=== PATIENT | female | born 1945 | race Caucasian/White ===

== ENCOUNTER 2019-02-16 12:11 | Emergency (ER) | payer MEDICARE, SELFPAY ==
[2019-01-27 11:44] VITALS: BMI 28.8
[2019-02-16 12:12] VITALS: BP 202/106; PULSE 106; RESP 16; TEMP 36.9; BMI 29.2
--- NOTE | 2019-02-16 12:27 | VDLE_ITS ---
Reason For Study: swelling RIGHT LEFT GSV is normal. GSV is normal. CFV is compressible, spontaneous, phasic, CFV is compressible, spontaneous, phasic, competent and demonstrates normal competent, and demonstrates normal augmentation. augmentation. FV is compressible, spontaneous, phasic, FV is compressible, spontaneous, phasic, competent and demonstrates normal competent and demonstrates normal augmentation. augmentation. POP V is compressible, spontaneous, phasic, POP V is compressible, spontaneous, phasic, competent and demonstrates normal competent and demonstrates normal augmentation. augmentation. T/P Trunk is compressible. T/P Trunk is compressible. PTV is compressible. PTV is compressible. RT PerV is compressible. LT PerV is compressible. Procedure Exam performed portable in ED. The exam was diagnostic. A preliminary report was called and/or faxed to Dr. Brar. Interpretation Summary Deep veins of the lower extremities are bilaterally patent and compressible segmentally. There is no evidence of deep vein thrombosis on either side. Valvular competence appears intact within the proximal deep venous systems bilaterally. The greater saphenous veins appear bilaterally patent and compressible segmentally. Ordering Physician: Steven Brar Performed By: Aba Hilton RVT
--- NOTE | 2019-02-16 12:29 | ED.VIS.GEN ---
History of Present Illness Chief Complaint: Lower Extremity Injury Informant: Patient Onset: Days Current Severity: Mild Narrative: The patient presents with right lower extremity redness and edema, the edema is actually bilateral. Her history is basically complicated and is followed She has a history of requiring ocular surgery including clinic involving her right eye she had complications where she could not see she required subsequent surgery, she was then placed on high doses of prednisone related to all the above and she developed bilateral lower extremity edema She had no fever cough or chest pain she indicates the other day she bumped her right leg against something had poor vision could really see the injury but felt she had some type of an abrasion there over the last few days she is felt that the leg was slightly warm again because of poor vision she could not tell for sure she was seen today at [facility] urgent care she was found to have the edema bilaterally and redness involving her right lower extremity and she was sent to the emergency department for duplex scan to evaluate for DVT The patient has no history of DVT PE IN her vision is improving she is currently on 7 mg of prednisone she is to go down to 5 which is her baseline Past Medical History - Allergies and Home Meds Allergies/Adverse Reactions: Allergies alprazolam [From Xanax] Allergy (Unknown, Verified 02/16/19 12:15) Unknown [place] And Derivatives Allergy (Unknown, Verified 02/16/19 12:15) Unknown mushroom Allergy (Unknown, Verified 02/16/19 12:15) Unknown paroxetine [From Paxil] Allergy (Unknown, Verified 02/16/19 12:15) Unknown peanut Allergy (Unknown, Verified 02/16/19 12:15) Unknown tolmetin [From Tolectin] Allergy (Unknown, Verified 02/16/19 12:15) Unknown Yeast Allergy (Unknown, Verified 02/16/19 12:15) Unknown acetaminophen [From Darvocet-N] Allergy (Verified 02/16/19 12:15) Other aspirin Allergy (Verified 02/16/19 12:15) Other codeine Allergy (Verified 02/16/19 12:15) Other lidocaine Allergy (Verified 02/16/19 12:15) Other meperidine HCl [From Demerol] Allergy (Verified 02/16/19 12:15) Other Opioids - Morphine Analogues Allergy (Verified 02/16/19 12:15) Other oxycodone HCl [From Percodan] Allergy (Verified 02/16/19 12:15) Other oxycodone terephthalate [From Percodan] Allergy (Verified 02/16/19 12:15) Other Penicillins Allergy (Verified 02/16/19 12:15) Rash propoxyphene napsylate [From Darvocet-N] Allergy (Verified 02/16/19 12:15) Other Sulfa (Sulfonamide Antibiotics) Allergy (Verified 02/16/19 12:15) Rash Beef Containing Products Adverse Reaction (Severe, Verified 02/16/19 12:15) Unknown cheese Adverse Reaction (Mild, Verified 02/16/19 12:15) Unknown egg Adverse Reaction (Unknown, Verified 02/16/19 12:15) Unknown maltose Adverse Reaction (Unknown, Verified 02/16/19 12:15) Unknown Primary Care Physician: Jennie Turk MD [Primary Care Provider] - Past Medical History: - Smoking Status: Never smoker Review of Systems ROS: - See above General: Reports: - - Her general issues are the eye surgery decreased vision as above right lower extremity redness and edema bilaterally otherwise negative. Denies: Chills, Fever, Sweats Eyes: Denies: Visual changes - bilaterally, Diplopia ENT: Denies: Rhinorrhea, Sore throat Cardiovascular: Denies: Chest pain, Palpitations Respiratory: Denies: Dyspnea, Cough, Dyspnea on exertion Gastrointestinal: Denies: Abdominal pain, Nausea, Vomiting, Diarrhea, Melena, Hematochezia Genitourinary: Denies: Dysuria, Hematuria, Frequency Musculoskeletal: Denies: Back pain, Extremity Pain Skin: Reports: Rash. Denies: Wounds Neurological: Denies: Headache, Weakness, Numbness Physical Exam Vital Signs/Narrative: Vital Signs Temp Pulse Resp BP 02/16/19 12:12 98.4 F 106 H 16 202/106 H General: Well nourished, Well developed, No Acute Distress Head: Normocephalic, Atraumatic Eyes: Perrl, EOMI ENT: Moist mucous membranes, No rhinorrhea Neck: Supple, Nontender Cardiovascular: Regular rate, Regular rhythm, No murmurs Respiratory: No distress, CTA bilaterally, Chest nontender Abdomen: Soft, Nontender, Nondistended, Normal bowel sounds Back: Nontender, Normal Inspection Extremities: Nontender, - - Has 4+ edema to her ankles and feet she has circular redness to the right lower extremity mid tib-fib level down to the ankles, neurovascular function to both lower extremities appears to be intact she is wearing very tightly fitting shoes as these are her only shoes, she has a very fine abrasion to the posterior right lower leg and what appears to be findings consistent with cellulitis related to all the above there is no fluctuance or subcu air crepitus she is able to walk without difficulty and has no pain Skin: Normal color, No rash Neurological: Alert, Oriented x3, Cranial nerves II-XII grossly intact, Normal Strength, Normal Sensation Psychological: Normal affect, Normal Mood Diagnostic/Tx/Re-eval - Medical Decision Making She has chronic bilateral edema for weeks related to the prednisone she now appears to have right lower extremity cellulitis given all the above we went through her allergy list she is able to take clindamycin she has no history of MRSA or other skin infections she has no history of DVT bilateral duplex scans will be obtained given all the above She feels fine she wants to go home she does not feel she requires admission there is been no constitutional or systemic findings of any kind such as fever cough etc. she agrees imaging studies lab work-up is not necessary, we will obtain the duplex scan provide the first dose of clindamycin Duplex scan shows no acute signs of DVT plan is as above and she will follow-up outpatient providers in a few days return for change in symptoms Home stable Final impression Bilateral lower extremity edema, right lower extremity cellulitis recent eye surgery ED Disposition - Plan for ED Patient: Diagnosis: Cellulitis Instructions: Cellulitis Prescriptions: Clindamycin HCl [Cleocin] 300 mg PO Q6H #40 cap Prescription Printed Referrals: Jennie Turk MD [Primary Care Provider] - Additional Instructions: Keep your legs elevated, or the postop shoes are comfortable fitting shoes follow-up with your outpatient providers for wound check in a few days
[2019-02-16] MEDS: Clindamycin HCl 150 MG Capsule 300 MG PO (15:26)
[2019-02-16 15:28] VITALS: BP 193/85; PULSE 93; RESP 16
== END 2019-02-16 15:29 | disposition home or self-care (01) ==
LOC: ED 13:06
PROVIDERS: Emergency Provider Emergency Medicine; Family Provider Internal Medicine; PCP Internal Medicine
DX: L03.115 Cellulitis of right lower limb (principal); R60.0 Localized edema; T38.0X5A Adverse effect of glucocorticoids and synthetic analogues, initial encounter; Z98.890 Other specified postprocedural states
CPT/HCPCS: 93970; 99283

== ENCOUNTER 2020-04-02 19:08 | Emergency (ER) | payer MEDICARE, SELFPAY ==
[2020-04-02 19:08] VITALS: BP 204/111; PULSE 95; RESP 16; TEMP 35.7; O2SAT 95; BMI 29.6
[2020-04-02 20:55] LABS: Absolute Lymphocyte Count 2.51 X10^3/uL (0.83-4.51); Absolute Neutrophil Count 10.6 X10^3/uL (2.0-7.7); Basophil# 0.04 X10^3/uL; Basophil% 0.3 % (0-1); Eosinophils% 0.7 % (0-5); Hemoglobin 12.9 g/dL (12.0-15.0); Lymphocyte # 2.51 X10^3/ul (4.0); Lymphocyte % 17.6 % (19-41); Mean Corp Hgb Conc 33.1 g/dL (32-36); Mean Corpuscular Hgb 32.4 pg (27.0-32.0); Mean Platelet Vol. 9.2 fl (6.2-12.0); Monocyte# 0.93 X10^3/uL; Monocyte% 6.5 % (0-10); NRBC Flagged by Analyzer 0 % (0-5); Neutrophil # 10.57 X10^3/uL (2.7-7.7); Neutrophil % 74.2 % (47-70); Platelet Count 354 K/mm3 (150-450); RBC Distribution Width CV 13.8 % (11.6-14.6); RBC Distribution Width SD 49.9 fl (35.1-43.9); Red Blood Count 3.98 M/mm3 (4.2-5.4); White Blood Count 14.3 K/mm3 (4.4-11.0)
[2020-04-02 21:35] LABS: ALB/GLOB Ratio 0.9 RATIO (0.9-2.4); AST(SGOT) 17 U/L (15-37); Alanine Aminotransfer ALT/SGPT 23 U/L (13-56); Albumin, Serum 3.3 g/dL (3.2-5.0); Alkaline Phosphatase 55 U/L (45-117); Anion Gap 8 (5-15); BUN 16 mg/dL (7-18); BUN/Creat Ratio 10.6 RATIO (10-20); Calcium,Total 8.7 mg/dL (8.5-10.1); Chloride 98 mmol/L (98-107); Creatinine, Serum 1.51 mg/dL (0.55-1.02); EST Glomerular Filtration Rate 36 mL/min (>60); Est Glom Filt Rate - Afr Amer 43 mL/min (>60); Estimated Creatinine Clearance 32.97 ml/min; Globulin 3.7 g/dL (2.2-4.2); Glucose 94 mg/dL (74-106); Potassium 3.3 mmol/L (3.5-5.1); Sodium Level 136 mmol/L (136-145)
--- NOTE | 2020-04-02 21:35 | ED.DCSUM_ITS ---
History of Present Illness Chief Complaint: Lower Extremity Injury Narrative: Patient presents with right great toe infection. She now has developed mild cellulitis. To around the ankle region. She has no fever chills cough or congestion she is not a diabetic. She noticed a cyst on the great toe. No groin pain and no lymphangitic streaking noted Past Medical History - Allergies and Home Meds Allergies/Adverse Reactions: Allergies alprazolam [From Xanax] Allergy (Unknown, Verified 02/16/19 12:15) Unknown [place] And Derivatives Allergy (Unknown, Verified 02/16/19 12:15) Unknown mushroom Allergy (Unknown, Verified 02/16/19 12:15) Unknown paroxetine [From Paxil] Allergy (Unknown, Verified 02/16/19 12:15) Unknown peanut Allergy (Unknown, Verified 02/16/19 12:15) Unknown tolmetin [From Tolectin] Allergy (Unknown, Verified 02/16/19 12:15) Unknown Yeast Allergy (Unknown, Verified 02/16/19 12:15) Unknown acetaminophen [From Darvocet-N] Allergy (Verified 02/16/19 12:15) Other aspirin Allergy (Verified 02/16/19 12:15) Other codeine Allergy (Verified 02/16/19 12:15) Other lidocaine Allergy (Verified 02/16/19 12:15) Other meperidine HCl [From Demerol] Allergy (Verified 02/16/19 12:15) Other Opioids - Morphine Analogues Allergy (Verified 02/16/19 12:15) Other oxycodone HCl [From Percodan] Allergy (Verified 02/16/19 12:15) Other oxycodone terephthalate [From Percodan] Allergy (Verified 02/16/19 12:15) Other Penicillins Allergy (Verified 02/16/19 12:15) Rash propoxyphene napsylate [From Darvocet-N] Allergy (Verified 02/16/19 12:15) Other Sulfa (Sulfonamide Antibiotics) Allergy (Verified 02/16/19 12:15) Rash Beef Containing Products Adverse Reaction (Severe, Verified 02/16/19 12:15) Unknown cheese Adverse Reaction (Mild, Verified 02/16/19 12:15) Unknown egg Adverse Reaction (Unknown, Verified 02/16/19 12:15) Unknown maltose Adverse Reaction (Unknown, Verified 02/16/19 12:15) Unknown Primary Care Physician: Jennie Turk MD [Primary Care Provider] - Past Medical History: - - She has a history of hypertension, she is not a diabetic. Otherwise unremarkable past medical history Smoking Status: Never smoker Review of Systems All systems negative except as indicated General: Denies: Fever Cardiovascular: Denies: Chest pain Respiratory: Denies: Dyspnea, Cough Gastrointestinal: Denies: Abdominal pain, Nausea Musculoskeletal: Reports: Extremity Pain Skin: Reports: Wounds Neurological: Denies: Headache Psych: Denies: Depression Hematologic: Denies: Easy bruising Physical Exam Vital Signs/Narrative: Vital Signs Temp Pulse Resp BP Pulse Ox 04/02/20 19:08 96.2 F L 95 16 204/111 H 95 General: Well nourished, Well developed ENT: Moist mucous membranes Cardiovascular: Regular rate, Regular rhythm Respiratory: No distress, CTA bilaterally Abdomen: Soft, Nontender Back: Nontender, Normal Inspection Extremities: - - There is a 1 cm cyst over the bunion region of the great toe. There is slight surrounding cellulitis extending to the ankle. No lymphangitic streaking. Skin: - - Cellulitis as above, no crepitus or signs of necrotizing fasciitis. Diagnostic/Tx/Re-eval - Medical Decision Making Patient has slight leukocytosis, she has mild cellulitis. She had a small cyst, I used a 21-gauge needle and expectorated the sebaceous cyst, it is now fully drained. I gave her IV clindamycin apparently she just had 3 doses of 300 mg clindamycin since yesterday, I do not believe this is outpatient failure, patient is adamant about going home, she had cellulitis in the past and was much worse than this and was treated outpatient. She seems quite reliable if she worsens she is to return. She understands this. ED Disposition - Plan for ED Patient: Disposition: Home or Assisted Living Diagnosis: Cellulitis Instructions: Cellulitis Prescriptions: Clindamycin [Cleocin] 300 mg PO 4X/DAY #60 cap Prescription Printed Referrals: Jennie Turk MD [Primary Care Provider] - 3-5 Days
[2020-04-02 21:50] VITALS: PULSE 82; RESP 16; TEMP 37.2; O2SAT 99
== END 2020-04-02 22:12 | disposition home or self-care (01) ==
PROVIDERS: Emergency Provider Emergency Medicine; PCP Internal Medicine
DX: L03.115 Cellulitis of right lower limb (principal); L72.3 Sebaceous cyst; I10 Essential (primary) hypertension; Z79.52 Long term (current) use of systemic steroids; Z79.899 Other long term (current) drug therapy
CPT/HCPCS: 80053; 85025; 96365; 96366; 99283; J7030

== ENCOUNTER 2020-07-07 21:09 | Emergency (ER) | payer MEDICARE, SELFPAY ==
[2020-07-07 21:10] VITALS: PULSE 96; RESP 18; TEMP 36.7; BMI 29.9
--- NOTE | 2020-07-07 21:29 | ED.VISSUMM ---
- ER Visit Summary Date of Service: 07/07/20 Chief Complaint: UTI History of Present Illness: The patient is a 74 F with a possible UTI. She has suprapubic pain and burning with urination that started this evening. She is a home test report showed that it was positive for UTI. She has a history of UTIs. She is on Macrodantin suppression. She is concerned for a resistant infection. She has multiple medication allergies and can only take Cipro. Denies fever or back pain. Denies any GI symptoms. No other complaints. Physical Examination: Afebrile and vital signs unremarkable. Alert and oriented. No acute distress. Abdomen slightly tender in the suprapubic region. No guarding or rebound. Back is nontender. Skin appears normal. Test Results: Urine culture sent. Emergency Department Course and Treatment: Patient has symptoms of UTI. History of UTIs. Her test strip is positive for UTI. Will not perform urinalysis. We will send a culture directly. She has had good results with Cipro in the past. She was treated here. She can only take Cipro with a lot of food. She can take the first dose with food tonight, and she was given a prescription for the rest. Follow-up with primary care. Return for any new or worsening issues. Treatment Plan: As above Disposition: Discharge Impression: Dysuria This note was generated with CAP[employer]URE dictation software. It may contain incorrect words, spelling, and punctuation that were not noted in review of the chart prior to signing ED Disposition - Plan for ED Patient: Referrals: Jennie Turk MD [Primary Care Provider] -
[2020-07-07] MEDS: Ciprofloxacin 500 MG Tablet PO (21:30)
--- NOTE | 2020-07-07 21:31 | ED.DEP ---
ED Disposition - Plan for ED Patient: Instructions: Dysuria Prescriptions: Ciprofloxacin [Cipro] 500 mg PO BID #14 tab Prescription Printed Referrals: Jennie Turk MD [Primary Care Provider] -
[2020-07-07 22:05] VITALS: BP 210/98
== END 2020-07-07 22:09 | disposition home or self-care (01) ==
LOC: ED 22:03
PROVIDERS: Emergency Provider Emergency Medicine; PCP Internal Medicine
DX: R30.0 Dysuria (principal); R35.0 Frequency of micturition; R10.9 Unspecified abdominal pain; Z79.899 Other long term (current) drug therapy; Z87.440 Personal history of urinary (tract) infections
CPT/HCPCS: 87077; 87086; 87088; 87186; 99282

== ENCOUNTER 2020-09-01 11:20 | Emergency (ER) | payer MEDICARE, SELFPAY ==
[2020-09-01 11:21] VITALS: PULSE 89; RESP 16; TEMP 36.4; O2SAT 96; BMI 29.7
--- NOTE | 2020-09-01 11:48 | ED.DCSUM_ITS ---
History of Present Illness Chief Complaint: Cellulitis Informant: Patient Onset: Yesterday Context: Gradual Onset Current Severity: Mild Maximum Severity: Mild Narrative: Patient presents with pain and redness to her right great toe. She reports having cellulitis there in fall 2019 that required 7 weeks of oral antibiotics to clear up. Night before last she woke in the middle the night with throbbing pain in her right great toe. She initially denied any erythema but did have pain with walking. Yesterday she noted increased redness and swelling however pain seems to improve somewhat. There is no evidence of open wound. She has had no fevers or chills. She has been on chronic steroids for arthritis in her back and states this was recently tapered. She denies history of gout. - Past Medical History (1) Hypertension Status: Chronic (2) Arthritis Status: Chronic Past Medical History - Allergies and Home Meds Allergies/Adverse Reactions: Allergies alprazolam [From Xanax] Allergy (Unknown, Verified 09/01/20 11:25) Unknown [place] And Derivatives Allergy (Unknown, Verified 09/01/20 11:25) Unknown mushroom Allergy (Unknown, Verified 09/01/20 11:25) Unknown paroxetine [From Paxil] Allergy (Unknown, Verified 09/01/20 11:25) Unknown peanut Allergy (Unknown, Verified 09/01/20 11:25) Unknown tolmetin [From Tolectin] Allergy (Unknown, Verified 09/01/20 11:25) Unknown Yeast Allergy (Unknown, Verified 09/01/20 11:25) Unknown acetaminophen [From Darvocet-N] Allergy (Verified 09/01/20 11:25) Other aspirin Allergy (Verified 09/01/20 11:25) Other codeine Allergy (Verified 09/01/20 11:25) Other fluconazole [From Diflucan] Allergy (Verified 09/01/20 11:25) Rash lidocaine Allergy (Verified 09/01/20 11:25) Other if no epinepherine and no preservatives it is okay meperidine HCl [From Demerol] Allergy (Verified 09/01/20 11:25) Other metronidazole [From Metrogel] Allergy (Verified 09/01/20 11:25) Rash Opioids - Morphine Analogues Allergy (Verified 09/01/20 11:25) Other oxycodone HCl [From Percodan] Allergy (Verified 09/01/20:) Other oxycodone terephthalate [From Percodan] Allergy (Verified 09/01/20:) Other Penicillins Allergy (Verified 09/01/20) Rash propoxyphene napsylate [From Darvocet-N] Allergy (Verified 09/01/20:) Other Sulfa (Sulfonamide Antibiotics) Allergy (Verified 09/01/20:) Rash Beef Containing Products Adverse Reaction (Severe, Verified 09/01/20:) Unknown cheese Adverse Reaction (Mild, Verified 09/01/20:) Unknown egg Adverse Reaction (Unknown, Verified 09/01/20:) Unknown maltose Adverse Reaction (Unknown, Verified 09/01/20) Unknown adhesive tape Adverse Reaction (Verified 09/01/20) Rash Cephalosporins Adverse Reaction (Verified 09/01/20:) Shortness of breath cyclobenzaprine [From Flexeril] Adverse Reaction (Verified 09/01/20) NEEDS FOLLOW-UP epinephrine Adverse Reaction (Verified 09/01/20:) NEEDS FOLLOW-UP estrogens, conjugated [From Premarin] Adverse Reaction (Verified 09/01/20:) NEEDS FOLLOW-UP lisinopril Adverse Reaction (Verified 09/01/20:) Shortness of breath midazolam [From Versed] Adverse Reaction (Verified 09/01/20:) NEEDS FOLLOW-UP ofloxacin [From Floxin] Adverse Reaction (Verified 09/01/20:) NEEDS FOLLOW-UP salicylates Adverse Reaction (Verified 09/01/20:) Shortness of breath spider venom Adverse Reaction (Verified 09/01/20:25) Nausea Primary Care Physician: Jennie Turk MD [Primary Care Provider] - 5-7 Days Guido Seymour MD [STAFF PHYSICIAN] - As Needed Prior records reviewed: Yes Smoking Status: Never smoker Review of Systems General: Denies: Chills, Fever Eyes: Denies: Visual changes - bilaterally ENT: Denies: Bilateral ear pain Cardiovascular: Denies: Chest pain Respiratory: Denies: Dyspnea, Cough Gastrointestinal: Denies: Abdominal pain Musculoskeletal: Reports: Swelling, Extremity Pain Skin: Reports: Rash Neurological: Denies: Headache Hematologic: Denies: Easy bruising, Easy bleeding Allergy: Denies: Uticaria Physical Exam Vital Signs/Narrative: Vital Signs Temp Pulse Resp Pulse Ox 09/01/20 11:21 97.6 F L 89 16 96 Inital Vital Signs reviewed: Yes General: Well nourished, Well developed Head: Normocephalic ENT: Moist mucous membranes Neck: Supple Cardiovascular: Regular rate, Regular rhythm Respiratory: No distress, CTA bilaterally Abdomen: Soft, Nontender Extremities: - - Mild edema to the right great toe with erythema on the medial surface. No open wounds noted. No lymphangitic streak. Neurological: Alert, Oriented x3 Psychological: Normal affect Diagnostic/Tx/Re-eval Impressions Foot X-Ray 09/01/20 12:30 IMPRESSION: Normal x-ray examination of the foot. Electronically Signed: Grant Cervantes MD at 13:11 EST Tel , Service support , 09/01/20 12:30 Foot min 3 Views [RAD] Stat Laboratory Results 09/01/20 09/01/20 12:00 12:00 WBC 18.4 H RBC 4.12 L Hgb 13.1 Hct 39.9 MCV 96.8 MCH 31.8 MCHC 32.8 RDW Std Deviation 47.2 H RDW Coeff of [place] 13.2 Plt Count 392 MPV 9.6 Immature Gran % (Auto) 0.600 Neut % (Auto) 78.1 H Lymph % (Auto) 14.7 L [place] % (Auto) 5.5 Eos % (Auto) 0.7 Baso % (Auto) 0.4 Absolute Neuts (auto) 14.4 H Absolute Lymphs (auto) 2.71 Nucleated RBC % 0 ESR 7 Sodium 138 Potassium 2.7 L* Chloride 102 Carbon Dioxide 27.0 Anion Gap 9 BUN 16 Creatinine 1.07 H Estim Creat Clear Calc 45.83 Est GFR (MDRD) Af Amer 64 Est GFR (MDRD) Non-Af 53 L BUN/Creatinine Ratio 15.0 Glucose 121 H Uric Acid 8.6 H Calcium 8.7 C-React Prot Ext Range 30.50 H - Medical Decision Making Blood work is reviewed. White blood cell count is elevated to 18 as opposed to 14 last fall when she was seen for similar. She does report she was just on a 10 mg prednisone burst where her baseline is currently 4 mg. This may contribute. Uric acid is mildly elevated. At this time erythema is mild. Right foot x-ray per my interpretation reveals no bony abnormalities. Radiologist interpretation is reviewed. Patient be given a dose of IV clindamycin at this time and clindamycin at home. She was given p.o. potassium for her hypokalemia and will be given a short course of potassium at home as well. ED Disposition - Plan for ED Patient: Disposition: Home or Assisted Living Diagnosis: Hypokalemia, Cellulitis Instructions: ED Cellulitis, ED Hypokalemia Prescriptions: Clindamycin [Cleocin] 300 mg PO 4X/DAY #80 cap Prescription Printed Potassium Chloride [K-Dur] 20 meq PO BID #7 tab Prescription Printed Prednisone 20 mg PO DAILY #9 tab Prescription Printed Referrals: Jennie Turk MD [Primary Care Provider] - 5-7 Days Guido Seymour MD [STAFF PHYSICIAN] - As Needed Additional Instructions: Prednisone: 20mg daily x 3 days, then 10mg daily x 3 days, then back to baseline 4mg dose.
[2020-09-01 12:25] LABS: Absolute Lymphocyte Count 2.71 X10^3/uL (0.83-4.51); Absolute Neutrophil Count 14.4 X10^3/uL (2.0-7.7); Basophil# 0.08 X10^3/uL; Basophil% 0.4 % (0-1); Eosinophil# 0.13 X10^3/uL; Eosinophils% 0.7 % (0-5); Erythrocyte Sedimentation Rate 7 mm/hr (0-30); Hematocrit 39.9 % (37-47); Hemoglobin 13.1 g/dL (12.0-15.0); Lymphocyte # 2.71 X10^3/ul (4.0); Lymphocyte % 14.7 % (19-41); Mean Corp Hgb Conc 32.8 g/dL (32-36); Mean Corpuscular Hgb 31.8 pg (27.0-32.0); Mean Corpuscular Volume 96.8 fL (81-99); Mean Platelet Vol. 9.6 fl (6.2-12.0); Monocyte# 1.01 X10^3/uL; Monocyte% 5.5 % (0-10); NRBC Flagged by Analyzer 0 % (0-5); Neutrophil # 14.37 X10^3/uL (2.7-7.7); Neutrophil % 78.1 % (47-70); Platelet Count 392 K/mm3 (150-450); RBC Distribution Width CV 13.2 % (11.6-14.6); RBC Distribution Width SD 47.2 fl (35.1-43.9); Red Blood Count 4.12 M/mm3 (4.2-5.4); White Blood Count 18.4 K/mm3 (4.4-11.0)
--- NOTE | 2020-09-01 12:30 | RAD_ITS ---
STUDY: X-RAY - RIGHT FOOT CLINICAL: Female, 75 years old. RIGHT GREAT TOE, SWOLLEN, RED AND PAINFUL. HX OF SIMILAR CELLULITIS. TECHNIQUE: 3 view(s) of the foot. COMPARISON: None. FINDINGS: Normal talus, calcaneus, and tarsal bones. Normal visualized subtalar, talonavicular, calcaneocuboid, tarsal and tarsometatarsal articulations. Normal metatarsi. Normal metatarsophalangeal joint of the great toe. Normal tibial and fibular sesamoid bones. Normal interphalangeal joint of the great toe. Normal phalanges of the great toe. Normal second through fifth metatarsophalangeal joints. Normal interphalangeal joints and phalanges of the lesser toes. The soft tissue structures are unremarkable. RAD/Foot min 3 Views IMPRESSION: Normal x-ray examination of the foot. Electronically Signed: Grant Cervantes MD at 13:11 EST Tel , Service support ,
[2020-09-01 12:58] LABS: Anion Gap 9 (5-15); BUN 16 mg/dL (7-18); Calcium,Total 8.7 mg/dL (8.5-10.1); Chloride 102 mmol/L (98-107); Creatinine, Serum 1.07 mg/dL (0.55-1.02); EST Glomerular Filtration Rate 53 mL/min (>60); Est Glom Filt Rate - Afr Amer 64 mL/min (>60); Estimated Creatinine Clearance 45.83 ml/min; Glucose 121 mg/dL (74-106); Potassium 2.7 mmol/L (3.5-5.1); Sodium Level 138 mmol/L (136-145); Uric Acid 8.6 mg/dL (2.6-6.0)
[2020-09-01 14:29] VITALS: BP 204/91; PULSE 82; RESP 18; O2SAT 96
== END 2020-09-01 15:33 | disposition home or self-care (01) ==
PROVIDERS: Emergency Provider Emergency Medicine; PCP Internal Medicine
DX: L03.032 Cellulitis of left toe (principal); E87.6 Hypokalemia; I10 Essential (primary) hypertension; M19.90 Unspecified osteoarthritis, unspecified site; Z79.52 Long term (current) use of systemic steroids; Z79.899 Other long term (current) drug therapy
CPT/HCPCS: 36415; 73630; 80048; 84550; 85025; 85652; 86140; 87040; 96365; 99283; J7030; J7050; A4216

== ENCOUNTER 2021-01-06 15:57 | Emergency (ER) | payer MEDICARE, SELFPAY ==
[2021-01-02 13:29] VITALS: BMI 29.7
[2021-01-06 15:57] VITALS: BP 211/109; PULSE 93; PULSE 94; RESP 18; TEMP 36.7; O2SAT 96; BMI 28.6
--- NOTE | 2021-01-06 16:31 | ED.VIS.LOWEX ---
HPI History of Present Illness Chief Complaint: Lower Extremity Injury Detail of Chief Complaint: Patient with minor injury to right great toe and no concern for cellulitis Informant: patient Narrative Narrative: Patient presents to the emergency department stating that she stepped off a metal stool awkwardly 2 nights ago and had some mild discomfort to the right great toe. Patient today noticed a bluish discoloration to the medial aspect of the right great toe with some faint erythema around and she became concerned about cellulitis. Patient states that she had developed for months with cellulitis of the right great toe months ago and had been on clindamycin up until 2 weeks ago. Patient not having any pain in the toe currently. She is not had any fever. [facility] Medical History (Updated 01/06/21 @ 16:[address] Misael Beckford, ) Cellulitis Fracture of metatarsal of left foot, closed Home Medications cetirizine [Zyrtec] 10 mg PO DAILY 02/12/14 [History Last Taken Unknown] conjugated estrogens [Premarin] 0.625 mg PO DAILY 02/12/14 [History Last Taken Unknown] Gastrocrom 200 mg PO 4X/DAY 01/27/19 [History Last Taken Unknown] prednisone 10 mg tablet 5 mg PO DAILY tab 01/27/19 [History Last Taken Unknown] chlordiazepoxide-clidinium 2.5 mg PO DAILY PRN 02/16/19 [History Last Taken Unknown] nitrofurantoin macrocrystal 1 tab PO DAILY 04/02/20 [History Last Taken Unknown] acetaminophen 325 mg capsule 325 mg PO ONCE PRN 01/02/21 [History Last Taken Unknown] ciprofloxacin HCl 500 mg tablet 500 mg PO BID PRN tab 01/02/21 [History Last Taken Unknown] clindamycin HCl 150 mg capsule 300 mg PO 4X/DAY PRN cap 01/02/21 [History Last Taken Unknown] lithium aspartate 5 mg capsule 5 mg PO DAILY PRN 01/02/21 [History Last Taken Unknown] olopatadine 0.2 % eye drops 1 drp OPHTHALMIC (EYE) DAILY 01/02/21 [History Last Taken Unknown] prednisolone acetate 0.12 % eye drops,suspension 1 drp OPHTHALMIC (EYE) .qod ml 01/02/21 [History Last Taken Unknown] triamterene 37.5 mg-hydrochlorothiazide 25 mg capsule 1 cap PO DAILY PRN 01/02/21 [History Last Taken Unknown] clindamycin HCl 300 mg PO 4X/DAY #80 capsule 01/06/21 [Rx Last Taken Unknown] Allergy/AdvReac Type Severity Reaction Status Date / Time alprazolam [From Xanax] Allergy Unknown Unknown Verified 01/02/21 13:32 [place] Derivatives Allergy Unknown Unknown Verified 01/02/21 13:32 mushroom Allergy Unknown Unknown Verified 01/02/21 13:32 paroxetine [From Paxil] Allergy Unknown Unknown Verified 01/02/21 13:32 peanut Allergy Unknown Unknown Verified 01/02/21 13:32 tolmetin [From Tolectin] Allergy Unknown Unknown Verified 01/02/21 13:32 Yeast Allergy Unknown Unknown Verified 01/02/21 13:32 acetaminophen Allergy Other Verified 01/02/21 13:32 [From Darvocet-N] aspirin Allergy Other Verified 01/02/21 13:32 codeine Allergy Other Verified 01/02/21 13:32 fluconazole [From Diflucan] Allergy Rash Verified 01/02/21 13:32 lidocaine Allergy Other Verified 01/02/21 13:32 meperidine HCl [From Demerol] Allergy Other Verified 01/02/21 13:32 metronidazole [From Metrogel] Allergy Rash Verified 01/02/21 13:32 Opioids - Morphine Analogues Allergy Other Verified 01/02/21 13:32 oxycodone HCl [From Percodan] Allergy Other Verified 01/02/21 13:32 oxycodone terephthalate Allergy Other Verified 01/02/21 13:32 [From Percodan] Penicillins Allergy Rash Verified 01/02/21 13:32 propoxyphene napsylate Allergy Other Verified 01/02/21 13:32 [From Darvocet-N] Sulfa (Sulfonamide Allergy Rash Verified 01/02/21 13:32 Antibiotics) Beef Containing Products AdvReac Severe Unknown Verified 01/02/21 13:32 cheese AdvReac Mild Unknown Verified 01/02/21 13:32 egg AdvReac Unknown Unknown Verified 01/02/21 13:32 maltose AdvReac Unknown Unknown Verified 01/02/21 13:32 adhesive tape AdvReac Rash Verified 01/02/21 13:32 Cephalosporins AdvReac Shortness Verified 01/02/21 13:32 of breath cyclobenzaprine AdvReac NEEDS Verified 01/02/21 13:32 [From Flexeril] FOLLOW-UP epinephrine AdvReac NEEDS Verified 01/02/21 13:32 FOLLOW-UP estrogens, conjugated AdvReac NEEDS Verified 01/02/21 13:32 [From Premarin] FOLLOW-UP lisinopril AdvReac Shortness Verified 01/02/21 13:32 of breath midazolam [From Versed] AdvReac NEEDS Verified 01/02/21 13:32 FOLLOW-UP ofloxacin [From Floxin] AdvReac NEEDS Verified 01/02/21 13:32 FOLLOW-UP salicylates AdvReac Shortness Verified 01/02/21 13:32 of breath spider venom AdvReac Nausea Verified 01/02/21 13:32 Social History (Updated 01/02/21 @ 13:40 by Nadine Hopkins) Smoking Status: Never smoker alcohol intake: never substance use type: does not use diet: low salt and other what type of physical activity do you participate in: none seatbelt use: always do you feel safe at home: Yes additional social history: ROS ROS ED Constitutional Constitutional ED: Reports systems reviewed and no addt'l complaints, except as documented; Denies body ache(s), change in weight or chills Eyes Eyes: Denies acute decrease in peripheral vision, change in vision, double vision or loss of vision ENT ENT ED: Reports none; Denies ear pain, lip swelling, loss taste/smell, neck pain, otalgia or sore throat Cardiovascular Cardiovascular: Reports none; Denies abdominal pain, chest pain with activity, leg edema, lightheadedness, palpitations, rapid heart rate or syncope Respiratory/Chest Respiratory/Chest: Reports none; Denies change in mental status, dry cough, dyspnea, hemoptysis, shortness of breath at rest or shortness of breath with exertion Gastrointestinal Gastrointestinal: Reports none; Denies abdominal pain, change in stool character, diarrhea, hematemesis, hematochezia, melena, rectal bleeding or vomiting Genitourinary Genitourinary ED: Reports none; Denies abdominal discomfort, anuria, dysuria, genital pain or polyuria Musculoskeletal Musculoskeletal: Reports none and other Details: Redness and discoloration to right great toe ; Denies arthralgias, back pain, difficulty walking, extremity pain, muscle weakness or myalgias Integumentary Reports none; Denies abscess or rash Neurologic Neurologic: Reports none; Denies abnormal gait, confusion, focal weakness, frequent falls, headache(s), loss of vision, numbness, paresthesias, radicular pain, vertigo or weakness Psychiatric Psychiatric: Reports systems reviewed and no addt'l complaints, except as documented and none; Denies behavioral changes, confusion, difficulty concentrating, hallucinations, suicidal ideation, tactile hallucinations or visual hallucinations Endocrine Endocrinology: Denies none, cold intolerance, excessive sweating, fatigue or heat intolerance Hematologic/Lymphatic Hematologic/Lymphatic: Reports none; Denies anemia, easy bleeding or easy bruising Allergic/Immunologic Allergic/Immunologic ED: Denies as per HPI, none, lip swelling, mouth swelling, throat swelling, tongue swelling or hives EXAM Physical Exam Const Vital Signs: 01/06/21 15:57 Temperature 98.1 F Temperature Source Temporal Pulse Rate 94 Respiratory Rate 18 Blood Pressure 211/109 H Blood Pressure Mean 143 Pulse Ox 96 Oxygen Delivery Method Room Air Positive well nourished and well developed General Appearance ED: well developed and NAD HEENT Reports TM's clear and moist mucous membranes normocephalic and atraumatic; Negative for trauma or tenderness Tympanic Membrane ED: Yes TM's clear Eyes PERRL and EOMs intact bilaterally General Eye ED: Negative for pale conjunctiva or scleral icterus Neck no lymphadenopathy, supple and no JVD General: Negative for tenderness Chest Wall inspection of chest normal and palpation of chest normal Chest: Negative for tenderness Resp normal respiratory effort and clear to auscultation bilaterally Effort and Inspection: Negative for respiratory distress or pain with movement Auscultation: Negative for rhonchi, wheezes or diminished lung sounds Cardio regular rate, regular rhythm, S1 normal heart sound, S2 normal heart sound and no murmurs Peripheral Pulses: pulses 2+ throughout GI normal to inspection, nondistended, normoactive bowel sounds, soft to palpation, non-tender, non-distended and no masses Back/Spine no CVA tenderness and no thoracic nor lumbar tenderness Extremity normal to inspection General Extremety ED: Negative for edema General Extremity: Negative for edema Right Lower Extremity: foot and digits Positive for other (Patient has a small blood blister to the medial aspect of the right great toe with some minimal faint erythema surrounding it.) Neuro oriented x3, CN's II-XII intact bilaterally, no sensory deficits noted and gait normal Sensorium / Orientation: awake, alert, oriented to person, oriented to place and oriented to time Motor Exam: strength 5/5 throughout and strength abnormal Psych mental status grossly normal Skin no rashes or lesions noted and no wounds MDM MDM MDM Narrative Medical decision making narrative: Patient had the area of erythema outlined in marker. This point I suspect she may have had a small contusion or shearing type injury to the great toe causing a small blood blister. There is concern for early cellulitis and I will start her on clindamycin. 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 Discharge Plan Triage Chief Complaint: Lower Extremity Injury ED Provider: Misael Beckford Dx/Rx/DC Orders Clinical Impression: Blister, Cellulitis of foot Instructions: Cellulitis, ED Blister (Adult) Prescriptions: New clindamycin HCl 150 MG capsule 300 mg PO 4X/DAY Qty: 80 RF: 0 No Action prednisone 10 mg tablet 5 mg PO DAILY RF: 0 ciprofloxacin HCl 500 mg tablet 500 mg PO BID PRNRF: 0 clindamycin HCl 150 mg capsule 300 mg PO 4X/DAY PRNRF: 0 acetaminophen [Tylenol] 325 mg capsule 325 mg PO ONCE PRNRF: 0 lithium aspartate 5 mg capsule 5 mg PO DAILY PRNRF: 0 prednisolone acetate 0.12 % drops,suspension 1 drp ophthalmic (eye) .qod RF: 0 olopatadine [Pataday Once Daily Relief] 0.2 % drops 1 drp ophthalmic (eye) DAILY RF: 0 conjugated estrogens [Premarin] 0.625 MG tablet 0.625 mg PO DAILY RF: 0 cetirizine [Zyrtec] 10 MG capsule 10 mg PO DAILY RF: 0 Gastrocrom 200 mg PO 4X/DAY RF: 0 triamterene-hydrochlorothiazid 37.5-25 mg capsule 1 cap PO DAILY PRNRF: 0 chlordiazepoxide-clidinium 2.5 MG capsule 2.5 mg PO DAILY PRN (Reason: Irritable Bowel Syndrome) RF: 0 nitrofurantoin macrocrystal 50 mg capsule 1 tab PO DAILY RF: 0 Primary Care Provider: Jennie Turk Referrals: Jennie Turk MD [Primary Care Provider] - Activity Restrictions/Additional Instructions: See your intelligence group supervisor for wound check in 3 to 5 days. Disposition Disposition: Home, self care
== END 2021-01-06 16:45 | disposition home or self-care (01) ==
PROVIDERS: Emergency Provider Emergency Medicine; PCP Internal Medicine
DX: S90.421A Blister (nonthermal), right great toe, initial encounter (principal); L03.031 Cellulitis of right toe; X58.XXXA Exposure to other specified factors, initial encounter; Y93.9 Activity, unspecified; Y92.9 Unspecified place or not applicable; Y99.9 Unspecified external cause status; Z79.52 Long term (current) use of systemic steroids; Z79.899 Other long term (current) drug therapy
CPT/HCPCS: 99282

== ENCOUNTER 2021-08-08 02:24 | Inpatient (IN) | payer MEDICARE, SELFPAY ==
[2021-08-08] VITALS (42 sets, daily range): BP systolic 108–240; BP diastolic 51–127; PULSE 57–113; RESP 14–29; TEMP 36.5–37; O2SAT 85–100; BMI 29.2
[2021-08-08] MEDS: 0.9% Normal Saline 1,000 ML 150 ML IV (02:45)
[2021-08-08] MEDS: Heparin Injection (Vial) 5,000 UNIT/ML VIAL 5230 UNIT IV (02:45)
--- NOTE | 2021-08-08 02:45 | EDS_ITS ---
HPI History of Present Illness Chief Complaint: Shortness of Breath Detail of Chief Complaint: Shortness of breath that started around 1:25 AM Narrative Narrative: Patient woke up from sleep feeling short of breath at 1:25 AM. She went to bed around midnight and she was feeling fine at that time. Patient states she has been having pain in her left shoulder for several weeks after injuring her shoulder. Patient denies any chest pain currently. Patient has no heart history. She does have history of hypertension for which she was supposed to start Norvasc this week. She denies recent travel or surgery. She denies fever or cough. She has not had the Covid vaccine because she is allergic to it. Patient has multiple drug allergies. [facility] Medical History (Updated 08/08/21 @ 02:[address] Misael Beckford DO) Cellulitis Fracture of metatarsal of left foot, closed Home Medications cetirizine [Zyrtec] 10 mg PO DAILY 02/12/14 [History Last Taken Unknown] conjugated estrogens [Premarin] 0.625 mg PO DAILY 02/12/14 [History Last Taken Unknown] Gastrocrom 200 mg PO 4X/DAY 01/27/19 [History Last Taken Unknown] prednisone 10 mg tablet 5 mg PO DAILY tab 01/27/19 [History Last Taken Unknown] chlordiazepoxide-clidinium 2.5 mg PO DAILY PRN 02/16/19 [History Last Taken Unknown] nitrofurantoin macrocrystal 1 tab PO DAILY 04/02/20 [History Last Taken Unknown] acetaminophen 325 mg capsule 325 mg PO ONCE PRN 01/02/21 [History Last Taken Unknown] ciprofloxacin HCl 500 mg tablet 500 mg PO BID PRN tab 01/02/21 [History Last Taken Unknown] clindamycin HCl 150 mg capsule 300 mg PO 4X/DAY PRN cap 01/02/21 [History Last Taken Unknown] lithium aspartate 5 mg capsule 5 mg PO DAILY PRN 01/02/21 [History Last Taken Unknown] olopatadine 0.2 % eye drops 1 drp OPHTHALMIC (EYE) DAILY 01/02/21 [History Last Taken Unknown] prednisolone acetate 0.12 % eye drops,suspension 1 drp OPHTHALMIC (EYE) .qod ml 01/02/21 [History Last Taken Unknown] triamterene 37.5 mg-hydrochlorothiazide 25 mg capsule 1 cap PO DAILY PRN 01/02/21 [History Last Taken Unknown] clindamycin HCl 300 mg PO 4X/DAY #80 capsule 01/06/21 [Rx Last Taken Unknown] Allergy/AdvReac Type Severity Reaction Status Date / Time alprazolam [From Xanax] Allergy Unknown Unknown Verified 08/08/21 02:30 [place] Derivatives Allergy Unknown Unknown Verified 08/08/21 02:30 mushroom Allergy Unknown Unknown Verified 08/08/21 02:30 paroxetine [From Paxil] Allergy Unknown Unknown Verified 08/08/21 02:30 peanut Allergy Unknown Unknown Verified 08/08/21 02:30 tolmetin [From Tolectin] Allergy Unknown Unknown Verified 08/08/21 02:30 Yeast Allergy Unknown Unknown Verified 08/08/21 02:30 acetaminophen Allergy Other Verified 08/08/21 02:30 [From Darvocet-N] aspirin Allergy Other Verified 08/08/21 02:30 codeine Allergy Other Verified 08/08/21 02:30 fluconazole [From Diflucan] Allergy Rash Verified 08/08/21 02:30 lidocaine Allergy Other Verified 08/08/21 02:30 meperidine HCl [From Demerol] Allergy Other Verified 08/08/21 02:30 metronidazole [From Metrogel] Allergy Rash Verified 08/08/21 02:30 Opioids - Morphine Analogues Allergy Other Verified 08/08/21 02:30 oxycodone HCl [From Percodan] Allergy Other Verified 08/08/21 02:30 oxycodone terephthalate Allergy Other Verified 08/08/21 02:30 [From Percodan] Penicillins Allergy Rash Verified 08/08/21 02:30 propoxyphene napsylate Allergy Other Verified 08/08/21 02:30 [From Darvocet-N] Sulfa (Sulfonamide Allergy Rash Verified 08/08/21 02:30 Antibiotics) Beef Containing Products AdvReac Severe Unknown Verified 08/08/21 02:30 cheese AdvReac Mild Unknown Verified 08/08/21 02:30 egg AdvReac Unknown Unknown Verified 08/08/21 02:30 maltose AdvReac Unknown Unknown Verified 08/08/21 02:30 adhesive tape AdvReac Rash Verified 08/08/21 02:30 Cephalosporins AdvReac Shortness Verified 08/08/21 02:30 of breath cyclobenzaprine AdvReac NEEDS Verified 08/08/21 02:30 [From Flexeril] FOLLOW-UP epinephrine AdvReac NEEDS Verified 08/08/21 02:30 FOLLOW-UP estrogens, conjugated AdvReac NEEDS Verified 08/08/21 02:30 [From Premarin] FOLLOW-UP lisinopril AdvReac Shortness Verified 08/08/21 02:30 of breath midazolam [From Versed] AdvReac NEEDS Verified 08/08/21 02:30 FOLLOW-UP ofloxacin [From Floxin] AdvReac NEEDS Verified 08/08/21 02:30 FOLLOW-UP salicylates AdvReac Shortness Verified 08/08/21 02:30 of breath spider venom AdvReac Nausea Verified 08/08/21 02:30 Social History (Updated 01/02/21 @ 13:40 by Nadine Hopkins) Smoking Status: Never smoker alcohol intake: never substance use type: does not use diet: low salt and other what type of physical activity do you participate in: none seatbelt use: always do you feel safe at home: Yes additional social history: ROS ROS ED Constitutional Constitutional ED: Reports systems reviewed and no addt'l complaints, except as documented; Denies body ache(s), change in weight or chills Eyes Eyes: Denies acute decrease in peripheral vision, change in vision, double vision or loss of vision ENT ENT ED: Reports none; Denies ear pain, lip swelling, loss taste/smell, neck pain, otalgia or sore throat Cardiovascular Cardiovascular: Reports none; Denies abdominal pain, chest pain with activity, leg edema, lightheadedness, palpitations, rapid heart rate or syncope Respiratory/Chest Respiratory/Chest: Reports none and dyspnea; Denies change in mental status, dry cough, hemoptysis, shortness of breath at rest or shortness of breath with exertion Gastrointestinal Gastrointestinal: Reports none; Denies abdominal pain, change in stool character, diarrhea, hematemesis, hematochezia, melena, rectal bleeding or vomiting Genitourinary Genitourinary ED: Reports none; Denies abdominal discomfort, anuria, dysuria, genital pain or polyuria Musculoskeletal Musculoskeletal: Reports none; Denies arthralgias, back pain, difficulty walking, extremity pain, muscle weakness or myalgias Integumentary Reports none; Denies abscess or rash Neurologic Neurologic: Reports none; Denies abnormal gait, confusion, focal weakness, frequent falls, headache(s), loss of vision, numbness, paresthesias, radicular pain, vertigo or weakness Psychiatric Psychiatric: Reports systems reviewed and no addt'l complaints, except as doc umented and none; Denies behavioral changes, confusion, difficulty concentrating, hallucinations, suicidal ideation, tactile hallucinations or visual hallucinations Endocrine Endocrinology: Denies none, cold intolerance, excessive sweating, fatigue or heat intolerance Hematologic/Lymphatic Hematologic/Lymphatic: Reports none; Denies anemia, easy bleeding or easy bruising Allergic/Immunologic Allergic/Immunologic ED: Denies as per HPI, none, lip swelling, mouth swelling, throat swelling, tongue swelling or hives EXAM Physical Exam Narrative Exam Narrative: IV line established on arrival. Patient placed on a cardiac cath technologist. Patient had an EKG obtained that showed an acute ST elevation MT anteriorly. STEMI team was activated. I discussed case with hotel night auditor who will present to the ER to evaluate patient for Morning Show [employer]. Const Vital Signs: 08/08/21 02:24 08/08/21 02:28 08/08/21 02:30 Temperature 97.8 F 97.8 F Temperature Source Oral Oral Pulse Rate 113 H 113 H Respiratory Rate 28 H 28 H Respiratory Effort Short of Breath Respiratory Depth Deep Respiratory Pattern Hyperpnea Blood Pressure 240/124 H 240/124 H Blood Pressure Mean 162 162 Pulse Ox 91 91 Oxygen Delivery Method Nasal Cannula Nasal Cannula Nasal Cannula Oxygen Flow Rate (L/min) 4 4 3 08/08/21 02:40 Temperature Temperature Source Pulse Rate Respiratory Rate 29 H Respiratory Effort Respiratory Depth Respiratory Pattern Blood Pressure 211/94 H Blood Pressure Mean Pulse Ox Oxygen Delivery Method Oxygen Flow Rate (L/min) Positive well nourished and well developed General Appearance ED: well developed and NAD HEENT Reports TM's clear and moist mucous membranes normocephalic and atraumatic; Negative for trauma or tenderness Tympanic Membrane ED: Yes TM's clear Eyes PERRL and EOMs intact bilaterally General Eye ED: Negative for pale conjunctiva or scleral icterus Neck no lymphadenopathy, supple and no JVD General: Negative for tenderness Chest Wall inspection of chest normal and palpation of chest normal Chest: Negative for tenderness Resp normal respiratory effort and clear to auscultation bilaterally Effort and Inspection: Negative for respiratory distress or pain with movement Auscultation: wheezes; Negative for rhonchi or diminished lung sounds Cardio regular rate, regular rhythm, S1 normal heart sound, S2 normal heart sound and no murmurs Rate: tachycardic Peripheral Pulses: pulses 2+ throughout GI normal to inspection, nondistended, normoactive bowel sounds, soft to palpation, non-tender, non-distended and no masses Back/Spine no CVA tenderness and no thoracic nor lumbar tenderness Extremity normal to inspection General Extremety ED: Negative for edema General Extremity: Negative for edema Neuro oriented x3, CN's II-XII intact bilaterally, no sensory deficits noted and gait normal Sensorium / Orientation: awake, alert, oriented to person, oriented to place and oriented to time Motor Exam: strength 5/5 throughout and strength abnormal Psych mental status grossly normal Skin no rashes or lesions noted and no wounds Critical Care Time Critical care time (excluding procedures): Discussing w/Patient &/or Family/Sample Prep Technician, Discussing w/Consultants, Arranging Admission or Transfer and - (20 minutes) Discharge Plan Dx/Rx/DC Orders Clinical Impression: ST elevation MT (STEMI), Acute dyspnea Disposition Disposition: Acute Care [facility]
[2021-08-08] MEDS: Clopidogrel Bisulfate 300 MG Tablet 600 MG PO (02:46)
[2021-08-08 02:48] LABS: Absolute Lymphocyte Count 2.72 X10^3/uL (0.83-4.51); Absolute Neutrophil Count 12.8 X10^3/uL (2.0-7.7); Basophil# 0.03 X10^3/uL; Basophil% 0.2 % (0-1); Eosinophil# 0.06 X10^3/uL; Eosinophils% 0.4 % (0-5); Hematocrit 41.1 % (37-47); Hemoglobin 13.2 g/dL (12.0-15.0); Lymphocyte # 2.72 X10^3/ul (0.83-4.51); Lymphocyte % 16.4 % (19-41); Mean Corp Hgb Conc 32.1 g/dL (32-36); Mean Corpuscular Hgb 31.2 pg (27.0-32.0); Mean Corpuscular Volume 97.2 fL (81-99); Mean Platelet Vol. 9.6 fl (6.2-12.0); Monocyte# 0.83 X10^3/uL; NRBC Flagged by Analyzer 0 % (0-5); Neutrophil % 77.3 % (47-70); Platelet Count 464 K/mm3 (150-450); RBC Distribution Width CV 13.2 % (11.6-14.6); RBC Distribution Width SD 47.5 fl (35.1-43.9); Red Blood Count 4.23 M/mm3 (4.2-5.4); White Blood Count 16.6 K/mm3 (4.4-11.0)
[2021-08-08] MEDS: Nitroglycerin Oint 1 INCH PACKET TRANSDERM. (02:48)
--- NOTE | 2021-08-08 02:50 | RAD_ITS ---
EXAM: XR CHEST, 1 VIEW CLINICAL INDICATION: chest pain chest pain TECHNIQUE: Frontal view of the chest. This report was created using dough report generation technology. COMPARISON: None. FINDINGS: LUNGS AND PLEURAL SPACES: There are calcified granulomas overlying the left lung field. There is atelectasis or infiltration overlying the right lower lung field. No pneumothorax. No effusion. HEART: Unremarkable. Cardiac silhouette not enlarged. MEDIASTINUM: Central airways and mediastinal contour are unremarkable. BONES/JOINTS: Unremarkable. SOFT TISSUES: There is asymmetry of soft tissues, suggesting previous left mastectomy. RAD/Chest 1 View (Portable) IMPRESSION: Infiltration or atelectasis in the right lower lung field. Electronically Signed: Lucio Antunez MD at 3:28 EST , Service support ,
[2021-08-08 02:57] LABS: International Normalized Ratio 0.9; Partial Thromboplast Time 27.6 Seconds (24.1-36.2); Prothrombin Time (Protime)PT. 11.9 SECONDS (11.7-14.9)
[2021-08-08 03:06] LABS: BNP,B-Type NATRIURETIC PEPTIDE 564.9 pg/mL (0-100)
--- NOTE | 2021-08-08 03:14 | PCM.HP.STD ---
HPI - General General Date of Admission: 08/08/21 HPI Narrative COREEN JAY, is a 76 F with a significant history of hypertension; multiple allergies; and lumbar injury who presents to the emergency department with shortness of breath. Patient woke up from her sleep around 1:25 AM with shortness of breath. Shortness of breath is persistent. She denies any other symptoms. Particularly she denies chest pain. At the emergency department EKG showed ST elevation [place] and a STEMI alert was called. [facility] Medical History Cellulitis Fracture of metatarsal of left foot, closed Home Medications cetirizine [Zyrtec] 10 mg PO DAILY 02/12/14 [History Last Taken Unknown] conjugated estrogens [Premarin] 0.625 mg PO DAILY 02/12/14 [History Last Taken Unknown] Gastrocrom 200 mg PO 4X/DAY 01/27/19 [History Last Taken Unknown] prednisone 10 mg tablet 5 mg PO DAILY tab 01/27/19 [History Last Taken Unknown] chlordiazepoxide-clidinium 2.5 mg PO DAILY PRN 02/16/19 [History Last Taken Unknown] nitrofurantoin macrocrystal 1 tab PO DAILY 04/02/20 [History Last Taken Unknown] acetaminophen 325 mg capsule 325 mg PO ONCE PRN 01/02/21 [History Last Taken Unknown] ciprofloxacin HCl 500 mg tablet 500 mg PO BID PRN tab 01/02/21 [History Last Taken Unknown] clindamycin HCl 150 mg capsule 300 mg PO 4X/DAY PRN cap 01/02/21 [History Last Taken Unknown] lithium aspartate 5 mg capsule 5 mg PO DAILY PRN 01/02/21 [History Last Taken Unknown] olopatadine 0.2 % eye drops 1 drp OPHTHALMIC (EYE) DAILY 01/02/21 [History Last Taken Unknown] prednisolone acetate 0.12 % eye drops,suspension 1 drp OPHTHALMIC (EYE) .qod ml 01/02/21 [History Last Taken Unknown] triamterene 37.5 mg-hydrochlorothiazide 25 mg capsule 1 cap PO DAILY PRN 01/02/21 [History Last Taken Unknown] clindamycin HCl 300 mg PO 4X/DAY #80 capsule 01/06/21 [Rx Last Taken Unknown] Allergy/AdvReac Type Severity Reaction Status Date / Time alprazolam [From Xanax] Allergy Unknown Unknown Verified 08/08/21 02:30 Erath And Derivatives Allergy Unknown Unknown Verified 08/08/21 02:30 mushroom Allergy Unknown Unknown Verified 08/08/21 02:30 paroxetine [From Paxil] Allergy Unknown Unknown Verified 08/08/21 02:30 peanut Allergy Unknown Unknown Verified 08/08/21 02:30 tolmetin [From Tolectin] Allergy Unknown Unknown Verified 08/08/21 02:30 Yeast Allergy Unknown Unknown Verified 08/08/21 02:30 acetaminophen Allergy Other Verified 08/08/21 02:30 [From Darvocet-N] aspirin Allergy Other Verified 08/08/21 02:30 codeine Allergy Other Verified 08/08/21 02:30 fluconazole [From Diflucan] Allergy Rash Verified 08/08/21 02:30 lidocaine Allergy Other Verified 08/08/21 02:30 meperidine HCl [From Demerol] Allergy Other Verified 08/08/21 02:30 metronidazole [From Metrogel] Allergy Rash Verified 08/08/21 02:30 Opioids - Morphine Analogues Allergy Other Verified 08/08/21 02:30 oxycodone HCl [From Percodan] Allergy Other Verified 08/08/21 02:30 oxycodone terephthalate Allergy Other Verified 08/08/21 02:30 [From Percodan] Penicillins Allergy Rash Verified 08/08/21 02:30 propoxyphene napsylate Allergy Other Verified 08/08/21 02:30 [From Darvocet-N] Sulfa (Sulfonamide Allergy Rash Verified 08/08/21 02:30 Antibiotics) Beef Containing Products AdvReac Severe Unknown Verified 08/08/21 02:30 cheese AdvReac Mild Unknown Verified 08/08/21 02:30 egg AdvReac Unknown Unknown Verified 08/08/21 02:30 maltose AdvReac Unknown Unknown Verified 08/08/21 02:30 adhesive tape AdvReac Rash Verified 08/08/21 02:30 Cephalosporins AdvReac Shortness Verified 08/08/21 02:30 of breath cyclobenzaprine AdvReac NEEDS Verified 08/08/21 02:30 [From Flexeril] FOLLOW-UP epinephrine AdvReac NEEDS Verified 08/08/21 02:30 FOLLOW-UP estrogens, conjugated AdvReac NEEDS Verified 08/08/21 02:30 [From Premarin] FOLLOW-UP lisinopril AdvReac Shortness Verified 08/08/21 02:30 of breath midazolam [From Versed] AdvReac NEEDS Verified 08/08/21 02:30 FOLLOW-UP ofloxacin [From Floxin] AdvReac NEEDS Verified 08/08/21 02:30 FOLLOW-UP salicylates AdvReac Shortness Verified 08/08/21 02:30 of breath spider venom AdvReac Nausea Verified 08/08/21 02:30 Family History Other Allergies Asthma Rheumatic heart disease Surgical History H/O: hysterectomy Social History Smoking Status: Never smoker alcohol intake: never substance use type: does not use diet: low salt and other what type of physical activity do you participate in: none seatbelt use: always do you feel safe at home: Yes additional social history: ROS ROS Narrative Constitutional: Denies fever, chills, fatigue, anorexia and change in weight Eyes: Denies blurry vision, change in eye color, change in vision, discharge from eye(s), double vision, erythema, eye pain, loss of vision or other HEENT: Denies abnormal hearing, dysphagia, ear pain, epistaxis, headache(s), hearing loss, nasal congestion, nasal discharge, post nasal drip, sinus pressure, sore throat or other Cardiovascular: Denies chest pain or palpitations. Denies dyspnea on exertion, orthopnea and paroxysmal nocturnal dyspnea Respiratory/Chest: Reports shortness of breath. Denies cough Gastrointestinal: Denies abdominal pain, coffee ground emesis, constipation, diarrhea, dyspepsia, hematemesis, hematochezia, loose stools, melena, nausea, vomiting or other Genitourinary: Denies burning urination, difficulty urinating, dysuria, hematuria, nocturia, urinary frequency, urinary hesitancy, urinary incontinence, urinary urgency or other Musculoskeletal: Denies arthralgias, back pain, joint pain, joint stiffness, joint swelling, myalgias, neck pain or other Neurologic: Denies abnormal gait, abnormal speech, confusion, disequilibrium, dizziness, focal weakness, headache(s), numbness, paresthesias, seizure-like activity, seizures, syncope, tingling, tremor(s) or other Psychiatric: Denies anxiety, depression, homicidal ideation, suicidal ideation or other Endocrinology: Denies change in body appearance, cold intolerance, excessive sweating, heat intolerance, polydipsia, polyuria or other Hematologic/Lymphatic: Denies anemia, easy bleeding, easy bruising, lymphadenopathy or other Integumentary: Denies rashes Allergic/Immunologic: Denies rhinitis, hives, eczema, asthma or other Vital Signs Vital Signs Vital Signs: 08/08/21 02:24 08/08/21 02:28 08/08/21 02:30 Temperature 97.8 F 97.8 F Temperature Source Oral Oral Pulse Rate 113 H 113 H Respiratory Rate 28 H 28 H Respiratory Effort Short of Breath Respiratory Depth Deep Respiratory Pattern Hyperpnea Blood Pressure 240/124 H 240/124 H Blood Pressure Mean 162 162 Pulse Ox 91 91 Oxygen Delivery Method Nasal Cannula Nasal Cannula Nasal Cannula Oxygen Flow Rate (L/min) 4 4 3 08/08/21 02:40 08/08/21 02:48 08/08/21 02:50 Temperature Temperature Source Pulse Rate 107 H Respiratory Rate 29 H Respiratory Effort Respiratory Depth Respiratory Pattern Blood Pressure 211/94 H 211/94 H Blood Pressure Mean Pulse Ox 93 Oxygen Delivery Method Non-Rebreather Oxygen Flow Rate (L/min) 15 08/08/21 03:02 08/08/21 03:06 Temperature 98.6 F Temperature Source Temporal Pulse Rate 103 H 100 Respiratory Rate 29 H 19 H Respiratory Effort Respiratory Depth Respiratory Pattern Blood Pressure 234/127 H 234/127 H Blood Pressure Mean 162 162 Pulse Ox 96 98 Oxygen Delivery Method Non-Rebreather Non-Rebreather Oxygen Flow Rate (L/min) 15 15 Weight Weight: 87.2 kg Body Mass Index (BMI) 29.2 Physical Exam Narrative Physical exam: General: Well-nourished, well-developed. Head: Normocephalic, atraumatic, no tenderness Eyes: PERRLA, EOMI ENT, no trauma, moist mucous membranes, no rhinorrhea Neck: Nontender, full range of motion, no spinal tenderness, deformities, step-off CVS: Regular rate and rhythm. S1-S2 present. No murmur, gallop or rub. Respiratory : clear to auscultation bilaterally, chest wall nontender, no wheezing Abdomen: Soft, nontender, nondistended, normal bowel sounds, no masses : Deferred Back: Nontender, no CVA tenderness, no midline spinal tenderness, deformities, step-offs Extremities: Nontender full range of motion, no trauma Skin: Normal color, no trauma, abrasions Neuro: Alert, oriented, cranial nerves II through XII grossly intact. Psychiatry: Normal mood. Normal affect. Not depressed. Not anxious. Results Lab / Micro Data Result Diagrams: 08/08/21 02:40 08/08/21 02:40 Labs: Laboratory Results - last 24 hr 08/08/21 02:40: WBC 16.6 H, RBC 4.23, Hgb 13.2, Hct 41.1, MCV 97.2, MCH 31.2, MCHC 32.1, RDW Std Deviation 47.5 H, RDW Coeff of Eboni 13.2, Plt Count 464 H, MPV 9.6, Immature Gran % (Auto) 0.700, Neut % (Auto) 77.3 H, Lymph % (Auto) 16.4 L, Power % (Auto) 5.0, Eos % (Auto) 0.4, Baso % (Auto) 0.2, Absolute Neuts (auto) 12.8 H, Absolute Lymphs (auto) 2.72, Nucleated RBC % 0 08/08/21 02:40: PT 11.9, INR 0.9, APTT 27.6 08/08/21 02:40: B-Natriuretic Peptide 564.9 H Assessment & Plan Assessment/Plan (1) ST elevation [place] (STEMI): QUALIFIERS: Involved coronary artery: other anterior wall coronary artery Qualified Code(s): I21.09 - ST elevation (STEMI) myocardial infarction involving other coronary artery of anterior wall PLAN: STEMI EKG independently reviewed showed anterior wall ST elevation. Patient is allergic to aspirin. Patient was given Plavix and heparin bolus at the emergency department. Patient has multiple allergies. We will give a trial of Lipitor 10 mg nightly if no allergy then consider escalating to high intensity Lipitor. Case was discussed with cardiology interventionalists at the emergency department and patient was wheeled to the [facility] for possible intervention. Trend CBC and CMP. Trend cardiac enzymes. Multiple drug and food allergies Of note patient takes Gastrocrom before each meal. Patient has since her friend to bring this medication to her at the hospital. Consider resuming Gastrocrom when medically stable and no longer npo. Consider refraining from diet until Gastrocrom has been started. Hypertension urgency Noted to have severe elevated blood pressure with diastolic of more than 120 and systolic of more than 180. Discussed with cardiology will order the patient to be given hydralazine IV at the [facility]. Atelectasis Chest x-ray independently interpreted shows wedge-shaped lungs left lower lung brown. Radiology interpretation was reviewed. Patient with no fever. She has white count of 16.6. Patient with neutrophilia of 77.3% and lymphopenia of 16.4%. Review of records showed white count of 18.4 on 09/03/2020; and 14.3 on 04/02/2020. Leukocytosis likely reactive. Trend CBC. Thrombocytosis Review of labs showed platelet count of 464. Likely reactive. Trend CBC. DVT prophylaxis: Received heparin in the emergency department. SCD ordered for now. Charges/Coding Visit Charges Inpatient E&M: 88643 Init Hosp L3
[2021-08-08 04:06] LABS: Anion Gap 9 (5-15); BUN 31 mg/dL (7-18); BUN/Creat Ratio 27.9 RATIO (10-20); Calcium,Total 9.1 mg/dL (8.5-10.1); Chloride 102 mmol/L (98-107); Creatinine, Serum 1.11 mg/dL (0.55-1.02); EST Glomerular Filtration Rate 51 mL/min (>60); Est Glom Filt Rate - Afr Amer 61 mL/min (>60); Glucose 126 mg/dL (74-106); Potassium 3.9 mmol/L (3.5-5.1); Sodium Level 136 mmol/L (136-145); Troponin-I HS 6116 pg/mL (3.0-54.0)
--- NOTE | 2021-08-08 04:23 | RAD_ITS ---
STUDY: X-RAY - ABDOMEN/PELVIS REASON FOR EXAM: Female, 76 years old. Confirm OG placement -- Prior to admin of any med,fluid,flush,enteral feed TECHNIQUE: Portable, semierect, AP abdomen radiograph COMPARISON: Concurrent chest radiograph RAD/Abdomen Single View (Portable) IMPRESSION: OG tube terminates over the distal stomach with sidehole below the diaphragm. Partially visualized bowel gas pattern is distended. Electronically Signed: Josias Vasquez MD at 5:43 EST Tel , Service support ,
--- NOTE | 2021-08-08 04:40 | PCM.OP.PRO ---
Procedure Report Date of Procedure: 08/08/21 Procedure performed; 1. Selective left coronary angiography. 2. Selective right cholangiography. 3. Access flow of the right common femoral artery. Preprocedure diagnosis; 76-year-old patient who woke up this morning early around 1:30 AM with severe shortness of breath Was seen by the ER physician on-call for STEMI alert patient had no symptoms of chest pain however she have some change of the ST elevation noted in the anterior and lateral leads. There was no prior cardiac history I saw the patient in the ER she was still short of breath and noted her blood pressure was significant elevated Systolic blood pressure 234 mmHg. She also mentioned allergy to aspirin codeine and multiple other drug allergies, including FARAZ inhibitor lisinopril. Patient was given 300 mg of Plavix in the ER Patient brought to the [facility] for evaluation Consent; Risk and benefit of the procedure explained detail patient elected to proceed informed consent obtained. Diagnostic catheter used; 1. 5 Cameroonian JL 3.5 2. 5 Cameroonian JR4. Procedure in detail; Under fluoroscopic guidance Access obtained from the right common femoral artery 6 Cameroonian sheath placed in the right common femoral artery. Proceed with the diagnostic catheter 5 Cameroonian JL 3.5 advanced ascending aorta cannulated the left main and selective angiography were obtained using minimal contrast Then the catheter was exchanged for 5 Cameroonian JR4 and selective angiographic view of right carotid system were obtained. Patient been very uncomfortable in the [facility] with severe shortness of breath. Requiring intubation Blood pressure managed with hydralazine, labetalol, IV Lasix and IV nitroglycerin. Finding of cardiac catheterization; 1. Left main coronary artery moderate in size with mild calcification, no obstructive atherosclerosis noted in the left main. The left main coronary artery bifurcated into LAD and the left circumflex. 2. The left anterior descending has nonobstructive atherosclerosis in the mid LAD which is around 30% reach all the way to the apex angiographically there is no obstructive atherosclerosis in the left anterior descending It appears it is occluded diagonal branch at the origin which she does not well collateralized. 3. Left circumflex artery small size, OM1 proximally had 70% stenosis Proximal circumflex had around 60-70% stenosis, OM 2 had 80% stenosis small size vessel 4. RCA is a large vessel dominant with the mid RCA had 70% stenosis Conclusion and recommendation; 1. This patient has severe pulmonary edema with hypertensive cardiovascular disease With hypertensive emergency requiring medication in the [facility] with Lasix, labetalol, nitroglycerin, hydralazine and also requiring intubation and started on a ventilator 2. Patient troponin has been significant elevated 6116 with elevated BNP to 564. 3. Suture applied to right common femoral artery with the plan of admitting patient to the intensive care unit M supplies her hypertension and the pulmonary edema. 4. We will continue on nitro glycerin drip, also we discussed starting on aspirin with Benadryl and hydralazine if needed. 5. Patient renal function stable with a creatinine 1.1 BUN is 31, she diuresed very well and she has Reyes catheter in place. 6. Echocardiogram will be performed to evaluate and assess LV function and assess for wall motion abnormality. 7. We will discuss a plan of PCI of the RCA this afternoon. 8. Suture applied to right common femoral artery sheath with Tegaderm. We will start on heparin drip. This patient is a very high risk severe pulmonary edema severe hypertensive cardiovascular disease and significantly elevated cardiac biomarkers with coronary artery atherosclerosis. Jason Conroy MD,FACC,[facility]
--- NOTE | 2021-08-08 05:00 | EKG12_ITS ---
Test Reason : STEMI Blood Pressure : / mmHG Vent. Rate : 077 BPM Atrial Rate : 077 BPM P-R Int : 156 ms QRS Dur : 078 ms QT Int : 438 ms P-R-T Axes : 032 -29 -06 degrees QTc Int : 495 ms Normal sinus rhythm Possible Left atrial enlargement Anterolateral infarct , age undetermined Abnormal ECG When compared with ECG of 08-AUG-2021 02:36, MANUAL COMPARISON REQUIRED, DATA IS UNCONFIRMED Confirmed by JAYMIE POLANCO, BARBI ([id number]), assistant film editor CHAD CUEVA ([id number]) on 08/13/2021 10:15:53 AM Referred By: Jason Conroy Confirmed By:BARBI COON MD
--- NOTE | 2021-08-08 05:25 | RAD_ITS ---
EXAM: XR CHEST, 1 VIEW CLINICAL INDICATION: To confirm ET placement -- Call wet read to MD To confirm ET placement -- Call wet read to MD TECHNIQUE: Frontal view of the chest. This report was created using [employer] report generation technology. COMPARISON: Chest x-ray done at 0243 hours. FINDINGS: LUNGS AND PLEURAL SPACES: There is bilateral perihilar infiltration, asymmetrically more prominent on the right. This may represent pulmonary edema. Pneumonia is thought to be less likely but is not excluded. No pneumothorax. No effusion. HEART: Unremarkable. Cardiac silhouette not enlarged. MEDIASTINUM: Central airways and mediastinal contour are unremarkable. BONES/JOINTS: Unremarkable. SOFT TISSUES: Unremarkable. TUBES, LINES AND DEVICES: The endotracheal tube (ETT) is in satisfactory position with tip 3.0 cm above the troy. Nasogastric tube extends at least as far as the body of the stomach. RAD/Chest 1 View (Portable) IMPRESSION: 1. Endotracheal tube and nasogastric tube are in adequate position. 2. Bilateral perihilar infiltrates, probably representing pulmonary edema. Overlying infection is not excluded. Electronically Signed: Lucio Antunez MD at 6:35 EST , Service support ,
[2021-08-08] MEDS: Propofol 10MG/Ml 1,000 MG/100 ML Bottle 26.2 MG CONT INF (06:07)
[2021-08-08] MEDS: 0.9% Normal Saline 1,000 ML 15 ML IV ×2 (06:07→15:18)
--- NOTE | 2021-08-08 07:23 | CON.PCM.CC_ITS ---
Assessment & Plan Assessment/Plan (1) Acute respiratory failure with hypoxia: (2) Hypertensive emergency: (3) Pulmonary edema: PLAN: RECOMMENDATIONS: 1. Set systolic BP goal for 160-180 2. Discontinue Nitropaste. Titrate nitro drip 3. Await results of Covid testing 4. Spontaneous breathing and awakening trials per protocol 5. Await cardiology recommendations 6. Continue diuresis as tolerated 7. Attempt transition to Precedex from propofol to facilitate spontaneous breathing trial IMPRESSIONS: 1. Acute hypoxic respiratory failure secondary to flash pulmonary edema secondary to hypertensive emergency Patient with increased infiltrates bilaterally. Patient did have significantly elevated blood pressure on presentation. Patient has multiple drug allergies reported of various reactions. Some concern the patient may have had high blood pressure for a protracted period of time. Will attempt to lower blood pressures by 20% initially and then titrate down to a normal blood pressure over the next 48 to 72 hours. Patient should respond relatively quickly to diuresis. Patient does have a leukocytosis, but no fevers have been reported. Unclear if this is secondary to stress response. Patient may qualify for spontaneous breathing and awakening trials quickly with aggressive diuresis. 2. Coronary artery disease Patient reportedly was in ST elevation [place] in the ER, but lesion of interest in the RCA reportedly does not correspond to ECG pattern. Cardiology is following. Patient is on a nitro drip. Patient has received Plavix without allergic response. Cardiology is following. May consider a bare-metal stent given patient's reported long allergy history and concerns that she will not be able to continue antiplatelets for over 6 months. 3. Multiple allergies/overweight/advanced age/chronic steroids Complicates care, management, recovery and prognosis. Will reinitiate at baseline steroids for now. Cannot exclude the need for stress dose steroids, but will follow closely. Patient does not have any signs or symptoms of allergic reaction at this time. Unclear true reactions as many are unknown or vague. Patient is currently intubated and unable to clarify. TIME: 35 minutes critical care time spent addressing patient's acute hypoxic respiratory failure, hypertensive emergency, coronary artery disease, review of all data and collaboration with care team HPI Consult Data Date of Consult: 08/08/21 HPI Narrative HPI Narrative: COREEN JAY is a 76 F, with past medical history listed below, who presents to [facility] on 08/08[facility]2021 secondary to acute onset of shortness of breath at approximately 1:25 AM. Patient reportedly had gone to bed around midnight and was feeling fine at that time. Patient reportedly has had left shoulder pain for several weeks following an injury and denied any heart history or chest pain. Patient was recently started on Norvasc secondary to hypertension earlier in the week. Patient denied any fever, cough or sinus issues. Patient reportedly is unvaccinated against COVID-19. Patient reports multiple allergies of various unknown reactions. In the emergency department, patient was afebrile, but tachycardic at 113 bpm. Patient was also hypertensive at 240/124 and requiring 4 L nasal cannula to maintain saturations. Upon placing a maintenance truck driver, patient was thought to h ave acute ST elevation, so a STEMI team was activated. Patient was transferred to the [facility] for emergent intervention. Reportedly, patient started to have respiratory distress while in the [facility]. An airway team was called and patient was subsequently intubated. Patient did have a sheath placed in the groin and reportedly has a tight RCA lesion that was not acted upon secondary to concerns for her stability. Patient was transferred to the intensive care unit with sheath in place and placed on a nitroglycerin drip, Nitropaste, Plavix and a heparin drip. Patient has been difficult to sedate, so is currently on propofol, Precedex and fentanyl. No allergic rations have been reported. Unable to obtain a review of systems secondary to intubation. [facility] Medical History Cellulitis Fracture of metatarsal of left foot, closed Home Medications cetirizine [Zyrtec] 10 mg PO DAILY 02/12/14 [History Last Taken Unknown] conjugated estrogens [Premarin] 0.625 mg PO DAILY 02/12/14 [History Last Taken Unknown] Gastrocrom 200 mg PO 4X/DAY 01/27/19 [History Last Taken Unknown] prednisone 10 mg tablet 5 mg PO DAILY tab 01/27/19 [History Last Taken Unknown] chlordiazepoxide-clidinium 2.5 mg PO DAILY PRN 02/16/19 [History Last Taken Unknown] nitrofurantoin macrocrystal 1 tab PO DAILY 04/02/20 [History Last Taken Unknown] acetaminophen 325 mg capsule 325 mg PO ONCE PRN 01/02/21 [History Last Taken Unknown] ciprofloxacin HCl 500 mg tablet 500 mg PO BID PRN tab 01/02/21 [History Last Taken Unknown] clindamycin HCl 150 mg capsule 300 mg PO 4X/DAY PRN cap 01/02/21 [History Last Taken Unknown] lithium aspartate 5 mg capsule 5 mg PO DAILY PRN 01/02/21 [History Last Taken Unknown] olopatadine 0.2 % eye drops 1 drp OPHTHALMIC (EYE) DAILY 01/02/21 [History Last Taken Unknown] prednisolone acetate 0.12 % eye drops,suspension 1 drp OPHTHALMIC (EYE) .qod ml 01/02/21 [History Last Taken Unknown] triamterene 37.5 mg-hydrochlorothiazide 25 mg capsule 1 cap PO DAILY PRN 01/02/21 [History Last Taken Unknown] clindamycin HCl 300 mg PO 4X/DAY #80 capsule 01/06/21 [Rx Last Taken Unknown] Allergy/AdvReac Type Severity Reaction Status Date / Time alprazolam [From Xanax] Allergy Unknown Unknown Verified 08/08/21 02:30 [place] And Derivatives Allergy Unknown Unknown Verified 08/08/21 02:30 mushroom Allergy Unknown Unknown Verified 08/08/21 02:30 paroxetine [From Paxil] Allergy Unknown Unknown Verified 08/08/21 02:30 peanut Allergy Unknown Unknown Verified 08/08/21 02:30 tolmetin [From Tolectin] Allergy Unknown Unknown Verified 08/08/21 02:30 Yeast Allergy Unknown Unknown Verified 08/08/21 02:30 acetaminophen Allergy Other Verified 08/08/21 02:30 [From Darvocet-N] aspirin Allergy Other Verified 08/08/21 02:30 codeine Allergy Other Verified 08/08/21 02:30 fluconazole [From Diflucan] Allergy Rash Verified 08/08/21 02:30 lidocaine Allergy Other Verified 08/08/21 02:30 meperidine HCl [From Demerol] Allergy Other Verified 08/08/21 02:30 metronidazole [From Metrogel] Allergy Rash Verified 08/08/21 02:30 Opioids - Morphine Analogues Allergy Other Verified 08/08/21 02:30 oxycodone HCl [From Percodan] Allergy Other Verified 08/08/21 02:30 oxycodone terephthalate Allergy Other Verified 08/08/21 02:30 [From Percodan] Penicillins Allergy Rash Verified 08/08/21 02:30 propoxyphene napsylate Allergy Other Verified 08/08/21 02:30 [From Darvocet-N] Sulfa (Sulfonamide Allergy Rash Verified 08/08/21 02:30 Antibiotics) Beef Containing Products AdvReac Severe Unknown Verified 08/08/21 02:30 cheese AdvReac Mild Unknown Verified 08/08/21 02:30 egg AdvReac Unknown Unknown Verified 08/08/21 02:30 maltose AdvReac Unknown Unknown Verified 08/08/21 02:30 adhesive tape AdvReac Rash Verified 08/08/21 02:30 Cephalosporins AdvReac Shortness Verified 08/08/21 02:30 of breath cyclobenzaprine AdvReac NEEDS Verified 08/08/21 02:30 [From Flexeril] FOLLOW-UP epinephrine AdvReac NEEDS Verified 08/08/21 02:30 FOLLOW-UP estrogens, conjugated AdvReac NEEDS Verified 08/08/21 02:30 [From Premarin] FOLLOW-UP lisinopril AdvReac Shortness Verified 08/08/21 02:30 of breath midazolam [From Versed] AdvReac NEEDS Verified 08/08/21 02:30 FOLLOW-UP ofloxacin [From Floxin] AdvReac NEEDS Verified 08/08/21 02:30 FOLLOW-UP salicylates AdvReac Shortness Verified 08/08/21 02:30 of breath spider venom AdvReac Nausea Verified 08/08/21 02:30 Family History Other Allergies Asthma Rheumatic heart disease Surgical History H/O: hysterectomy Social History Smoking Status: Never smoker alcohol intake: never substance use type: does not use diet: low salt and other what type of physical activity do you participate in: none seatbelt use: always do you feel safe at home: Yes additional social history: ROS Review of Systems ROS Unobtainable: due to endotracheal tube Physical Exam Const General Appearance: intubated and patient mechanically ventilated Nutritional Appearance: overweight HEENT normocephalic, head/scalp atraumatic and moist oral mucous membranes Eyes conjunctivae normal Sclera: No sclera abnormal Neck full ROM Neck Narrative: Thick neck Resp Auscultation: diminished lung sounds; Negative for rales, rhonchi or wheezes Cardio S1 normal heart sound, S2 normal heart sound, no murmurs, no rub and no gallops Jugular Venous Distention: JVD to the level of the angle of the jaw GI normal to inspection, nondistended, normoactive bowel sounds Extremity General Extremity: edema bilateral (2+) lower extremity Skin no rashes or lesions noted Neuro Sensorium / Orientation: sedated on vent RASS: -2 Psych Activity / Motor Behavior: restless Lab / Micro Data Result Diagrams: 08/08/21 02:40 08/08/21 02:40 Labs: Laboratory Results - last 24 hr 08/08/21 02:40: WBC 16.6 H, RBC 4.23, Hgb 13.2, Hct 41.1, MCV 97.2, MCH 31.2, MCHC 32.1, RDW Std Deviation 47.5 H, RDW Coeff of [place] 13.2, Plt Count 464 H, MPV 9.6, Immature Gran % (Auto) 0.700, Neut % (Auto) 77.3 H, Lymph % (Auto) 16.4 L, [place] % (Auto) 5.0, Eos % (Auto) 0.4, Baso % (Auto) 0.2, Absolute Neuts (auto) 12.8 H, Absolute Lymphs (auto) 2.72, Nucleated RBC % 0 08/08/21 02:40: PT 11.9, INR 0.9, APTT 27.6 08/08/21 02:40: Sodium 136, Potassium 3.9, Chloride 102, Carbon Dioxide 25.0, Anion Gap 9, BUN 31 H, Creatinine 1.11 H, Estim Creat Clear Calc 43.50, Est GFR (MDRD) Af Amer 61, Est GFR (MDRD) Non-Af 51 L, BUN/Creatinine Ratio 27.9 H, Glucose 126 H, Calcium 9.1, Troponin I High Sens 6116 H* 08/08/21 02:40: B-Natriuretic Peptide 564.9 H Radiology Impression Chest X-Ray 08/08/21 02:50 IMPRESSION: Infiltration or atelectasis in the right lower lung field. Electronically Signed: Lucio Antunez MD at 3:28 EST , Service support , KUB X-Ray 08/08/21 04:23 IMPRESSION: OG tube terminates over the distal stomach with sidehole below the diaphragm. Partially visualized bowel gas pattern is distended. Electronically Signed: Josias Vasquez MD at 5:43 EST Tel , Service support , Chest X-Ray 08/08/21 05:25 IMPRESSION: 1. Endotracheal tube and nasogastric tube are in adequate position. 2. Bilateral perihilar infiltrates, probably representing pulmonary edema. Overlying infection is not excluded. Electronically Signed: Lucio Antunez MD at 6:35 EST , Service support , Charges/Coding Procedures Hospitalists Procedures: [id number] [facility]
[2021-08-08 07:40] LABS: Troponin-I HS 5631 pg/mL (3.0-54.0)
--- NOTE | 2021-08-08 09:26 | ECHOCS_ITS ---
Reason For Study: STEMI Procedure This was a 2D Doppler, Color Flow transthoracic echocardiogram. The study was technically difficult. Patient scanned supine on vent. Exam performed portable in ICU/CCU. Left Ventricle Mildly dilated left ventricle. The estimated ejection fraction is 40-45 %. Right Ventricle Normal right ventricle. Normal systolic function. Mitral Valve There is mild mitral annular calcification. Mild (1+) mitral valve insufficiency. Tricuspid Valve Normal tricuspid valve. Mild tricuspid valve insufficiency. Aortic Valve Mild diffuse aortic valve calcification. Pulmonic Valve The pulmonic valve is not well visualized. Great Vessels Normal aortic root. Pericardium/Pleural Small pericardial effusion. Medication Diluted definity 2.5ml given slow IV push to enhance endocardial definition. MMode/2D Measurements & Calculations LVIDd: 3.1 cm IVSd: 2.3 cm Ao root diam: 3.2 cm LVIDs: 1.9 cm LVPWd: 1.4 cm FS: 40.7 % LAV(MOD-bp): 23.9 ml LVAd ap4: 25.2 cm2 LVAd ap2: 26.6 cm2 LAV(MOD-bp) Indexed: 12.0 ml/m2 LVLd ap4: 6.9 cm LVLd ap2: 7.6 cm LAV(MOD-sp2): 24.0 ml EDV(MOD-sp4): 74.6 ml EDV(MOD-sp2): 74.9 ml LAV(MOD-sp4): 17.2 ml EDV(sp4-el): 77.8 ml EDV(sp2-el): 78.8 ml LVAs ap4: 18.4 cm2 LVAs ap2: 17.8 cm2 LVLs ap4: 6.7 cm LVLs ap2: 6.9 cm ESV(MOD-sp4): 41.0 ml ESV(MOD-sp2): 39.3 ml ESV(sp4-el): 42.7 ml ESV(sp2-el): 39.1 ml EF(MOD-sp4): 45.0 % EF(MOD-sp2): 47.5 % EF(sp4-el): 45.1 % SV(MOD-sp4): 33.5 ml SV(MOD-sp2): 35.6 ml SV(sp4-el): 35.1 ml LA dimension(2D): 2.9 cm LA A4 area: 8.4 cm2 Doppler Measurements & Calculations MV E max marv: 57.4 cm/sec Lat Peak E' Marv: 4.1 cm/sec Med Peak E' Marv: 2.7 cm/sec MV A max marv: 84.2 cm/sec E/E' lat: 14.1 E/E' med: 21.2 MV E/A: 0.68 Ao V2 max: 109.7 cm/sec LV V1 max: 68.0 cm/sec PA V2 max: 107.7 cm/sec Ao max P.8 mmHg LV V1 max P.8 mmHg TR max marv: 268.8 cm/sec TR max P.9 mmHg ECHO/Echo Complete W/ Contrast Interpretation Summary The estimated ejection fraction is 40-45 %. Moderate LV systolic Dysfunction Grade # I diastolic Dysfunction Anteroseptal and Apical Hypokinesia Mild MR Mild TR Ordering Physician: Jason Conroy Referring Physician: Jason Conroy Performed By: Nancy Chamorro RDCS
[2021-08-08 09:36] LABS: CPK Total, Creatine Kinase 108 U/L (26-192); Triglycerides 330 mg/dL
[2021-08-08 09:56] LABS: Hematocrit 35.7 % (37-47); Hemoglobin 11.7 g/dL (12.0-15.0); Mean Corp Hgb Conc 32.8 g/dL (32-36); Mean Corpuscular Volume 94.7 fL (81-99); Mean Platelet Vol. 9.7 fl (6.2-12.0); Platelet Count 398 K/mm3 (150-450); RBC Distribution Width CV 13.4 % (11.6-14.6); RBC Distribution Width SD 46.9 fl (35.1-43.9); Red Blood Count 3.77 M/mm3 (4.2-5.4); White Blood Count 21.3 K/mm3 (4.4-11.0)
--- NOTE | 2021-08-08 10:00 | EKG12_ITS ---
Test Reason : Blood Pressure : / mmHG Vent. Rate : 066 BPM Atrial Rate : 066 BPM P-R Int : 162 ms QRS Dur : 068 ms QT Int : 422 ms P-R-T Axes : 041 006 020 degrees QTc Int : 442 ms Normal sinus rhythm Anterolateral infarct , age undetermined Abnormal ECG When compared with ECG of 08-AUG-2021 05:38, MANUAL COMPARISON REQUIRED, DATA IS UNCONFIRMED Confirmed by JAYMIE POLANCO, BARBI ([id number]), sound editor CHAD CUEVA ([id number]) on 08/13/2021 10:15:37 AM Referred By: Jason Conroy Confirmed By:BARBI COON MD
--- NOTE | 2021-08-08 10:03 | CASEMGMT ---
Tertiary facilities in-network with patient's insurance: [facility], [place], [facility], [facility], , [facility], and [facility].
[2021-08-08 10:10] LABS: Cholesterol 168 mg/dL (200); High Density Lipoprotein 47 mg/dL; Triglycerides 339 mg/dL; Very Low Density Lipoprotein 68 mg/dL (5-40)
[2021-08-08] MEDS: DiphenhydrAMINE 12.5 MG/5 ML UDC GT (10:10)
[2021-08-08] MEDS: Famotidine 20 MG Tablet GT ×2 (10:11→21:45)
[2021-08-08] MEDS: predniSONE 5 MG Tablet PO (10:11)
[2021-08-08] MEDS: Aspirin 325 MG Tablet GT (10:12)
[2021-08-08 10:21] LABS: Troponin-I HS 6718 pg/mL (3.0-54.0)
[2021-08-08 10:25] LABS: ALB/GLOB Ratio 0.6 RATIO (0.9-2.4); AST(SGOT) 45 U/L (15-37); Alanine Aminotransfer ALT/SGPT 54 U/L (13-56); Albumin, Serum 2.3 g/dL (3.2-5.0); Alkaline Phosphatase 69 U/L (45-117); Anion Gap 9 (5-15); BUN 26 mg/dL (7-18); BUN/Creat Ratio 29.9 RATIO (10-20); Calcium,Total 8.1 mg/dL (8.5-10.1); Chloride 106 mmol/L (98-107); Creatinine, Serum 0.87 mg/dL (0.55-1.02); EST Glomerular Filtration Rate 67 mL/min (>60); Est Glom Filt Rate - Afr Amer 82 mL/min (>60); Estimated Creatinine Clearance 55.49 ml/min; Globulin 3.8 g/dL (2.2-4.2); Glucose 90 mg/dL (74-106); Protein, Total 6.1 g/dL (6.4-8.2); Sodium Level 138 mmol/L (136-145)
--- NOTE | 2021-08-08 10:30 | CASEMGMT ---
RN CM Assessment: Patient currently intubated, unable to speak with RN CM. Telephone call placed to patient's son, Andrew Gutierres, for initial transition planning/care coordination assessment. RN CM introduced self and role at [facility], son voices understanding and consents to assessment. Care providers, pharmacy, and demographics verified/updated. Admitting Dx: STEMI PCP: Dr. Jennie Turk Specialists: Patient sees an silver service waiter, son unsure of name. Preferred Pharmacy: [facility] [place] Insurance: Aet Medicare Prescription Benefit: yes LW/HPOA: Patient's son states he is HPOA and patient does not have living will. Made aware HPOA document not on file at [facility] and may be brought into hospital to be scanned into record. LNOK: Son, Andrew Gutierres Living Arrangements: Pt lives alone in split-level house with 6-8 steps to enter with rail. Patient's son states patient independent with ADLs prior to hospitalization. 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 Patient's son and close friend provide for transportation needs. DME/HHC/SNF: Patient has cane, uses only occasionally when leaving the home. Patient's son reports patient had brief HHC a couple of years ago following eye surgery, unsure of name of company. Denies previous SNF stays. CM to follow. Advised patient's son to ask CM if any further question/concerns/needs arise, voices understanding. Pt Goal: home Plan: to be determined by course of treatment and progress with therapy
[2021-08-08] MEDS: Chlorhexidine 15 ML PO ×2 (10:35→21:45)
[2021-08-08] MEDS: Potassium Chloride Oral Soln 20 MEQ/15 ML UDC 40 MEQ PO ×2 (10:55→15:18)
--- NOTE | 2021-08-08 12:27 | PCS.PANDOC ---
PANDEMIC DOCUMENTATION INITIATED: Date: 04/01/2021 Time: 190
--- NOTE | 2021-08-08 13:35 | PCIREPORT_ITS ---
PCI Cardiac Cath Report PCI Report: Procedure performed; 1. Successful PCI and stent of mid LAD with placement of drug-eluting stent, resolute/MIC 3 x 18 mm With maintenance of GONZALEZ III flow pre and post procedure. Haziness in the mid LAD and the site of the D1 with clear evidence of ruptured plaque As underlying etiology of the anterolateral MA. Nonobstructive coronary atherosclerosis noted in the mid LAD of around 40-50 with haziness. Stent in the mid LAD is 3 x 18 mm resolute/MCI. 2. Successful PTCA of sidebranch D1 using 2.5 x 15 mm emerge MR balloon with reduction of stenosis from subtotal 99% to 10?20% And improvement of GONZALEZ flow from GONZALEZ 0 to GONZALEZ-3 3. Successful PCI of mid RCA 75% stenosis, with predilatation followed by placement of drug-eluting stent 2.75 x 18 mm resolute/drug-eluting stent Postdilated with 3 x 12 mm, NC Emerge balloon with reduction of stenosis to 0 Pre and post PCI of RCA GONZALEZ-3 flow 4. Selective right common femoral artery angiography and placement of Perclose to close the right common femoral artery arteriotomy site Preprocedure diagnosis This 76-year-old patient presented with progressive symptoms of shortness of breath ongoing for at least 1 week When she came to the ER she had already evidence of change in the EKG anterolateral famished elevation however she does not have any symptoms of chest pain and noted she had significant elevation of her cardiac biomarkers with significant elevated high sensitive troponin I patient was taken to the emergency to the cardiac Ping Pong Table Assembler she had severe pulmonary edema requiring intubation and requiring treatment for hypertensive emergency when her systolic blood pressure was 234 patient intubated by ER physician in the [employer] and started on treatment and was brought him back today to the [employer]ing P[employer] Table As[employer]er to evaluate her coronary atherosclerosis She had an echocardiogram which showed moderate LV systolic dysfunction ejection fraction in the range of 40-45% with untrue apical and lateral hypokinesia. Mild MR with mild TR Interventional equipment and plan 1. We exchanged for 6 Polish new sheath to the right common femoral artery under aseptic technique 2. We will proceed with the guide catheter which is 6 Polish JR4 advanced ascending aorta cannulated the right coronary ostium and successfully perform PCI of the RCA using the drug-eluting stent as a specified Following this we proceed with the guide catheter which is 6 Polish JL4 advanced into the ascending aorta cannulated the left main coronary artery without difficulty following this we use run-through wire across the lesion in the occluded sidebranch D1 and predilated the lesion using 2 x 12 mm Replaced another wire in the LAD which is BMW wire and a run-through wire was in the diagonal branch Patient was given heparin ACT level was 246 she was given additional 2000 of heparin and also patient started on Integrilin infusion she was given 2 bolus of Integrilin in the Ping Pong Table Assembler We will proceed with a PTCA of the sidebranch diagonal were able to maintain GONZALEZ-3 flow in the diagonal and we followed by placement of drug-eluting stent 3 x 18 mm resolute in the mid LAD and achieve GONZALEZ-3 flow Following this selective right common femoral artery angiography obtained and Perclose used to close arteriotomy site with no complication in the Ping Pong Table Assembler Patient has been stable hemodynamically during this procedure oxygen saturation was within normal and she was on a ventilator. Conclusion recommendations; Patient presented with MA ongoing for 7 days with symptoms of chest pain at that time time she came into the ER symptoms resolved and she had change in the EKG with significant elevated troponin and she had hypertensive cardiovascular disease with hypertensive emergency and severe pulmonary edema requiring treatment with nitroglycerin as well she was given Lasix IV and patient intubated in the ER and subsequently brought back for the PCI as described 2. We will continue on DAPT which is Brilinta 90 mg p.o. twice daily/low-dose aspirin 81 mg daily 2. Continue to monitor electrolytes and renal function in the intensive care unit 3. She has a multiple allergies however she was given aspirin and if needed then will use a steroid shot been already on prednisone and will use antihistamine Benadryl IV however she will need to be on low-dose aspirin to prevent acute in-stent thrombosis. The echocardiographic evaluation showed moderate LV dysfunction as described, w ith mild MR, mild TR and segmental wall motion abnormality with the anteroapical and distal septal hypokinesia. Patient will follow up with the cardiology group here at [facility] Patient is scheduled for phase 1 cardiac rehab once she is stable There is no complication in the Ping Pong Table Assembler Jason Conroy MD,FAC,[facility]
--- NOTE | 2021-08-08 14:05 | CRPHASE1 ---
Patient Communication PHII Cardiac Rehab Discussed with Patient:: Yes Guide to Cardiac Rehab Given to Patient:: Yes Cardiac Rehab Facility Choice List Given to Patient:: Yes Choice Program [facility] CR PHII:: Communication Given to CR Choice Program Other:: Communication Given to CR Customer Experience Intern:: Jason Conroy Phase II Cardiac Rehab:: Yes Sessions:: 36 sessions - 3 days/wk, 12 weeks Cardiac Rehabilitation Info Cardiac Rehabilitation Program Information: Cardiac Rehabilitation is important for patients like you who are recovering from a heart problem. Cardiac rehabilitation programs are recognized as integral to the continued care of the patient with coronary heart disease. The cardiac rehabilitation program is designed to optimize a patient's physical, psychological, and social functioning. Health career based intervention coordinator work in cardiac rehabilitation programs and assist you with getting the treatments you need to get stronger and healthier - like exercise, healthy eating habits, and medications. Cardiac rehabilitation has been show to help people with heart problems live longer and have better life enjoyment than people who do not go to cardiac rehabilitation. Please contact the Cardiac Rehabilitation Program at [facility] at in two weeks if you have not heard from them.
--- NOTE | 2021-08-08 14:06 | CRPH1.INSTRU ---
General Education CAD and cardiac anatomy and function:: Patient communicates acknowledgment Explanation of diagnoses and procedures:: Patient communicates acknowledgment Sign/Symptoms of MT:: Patient communicates acknowledgment Antiplatelet therapy: Patient communicates acknowledgment Smoking Patient Nicotine/Smoking Risk Factors Are:: Non-smoker Dyslipidemia Patient Dyslipidemia Risk Factors Are:: Total Cholesterol, Triglycerides, HDL, LDL Recommendations Include:: Lipid profile provided, Reviewed NCEP/ATP guidelines, Therapeutic Lifestyle Change dietary guidelines Dyslipidemia Response Code:: Patient communicates acknowledgment Overweight/Obesity Patient Overweight/Obesity Risk Factors Are:: BMI Normal [24-29 & > 65 years old] Recommendations Include:: Weight loss of 5-10%, Reduced calorie diet, Exercise 5-7 times/week Overweight/Obesity:: Patient communicates acknowledgment Hypertension Recommendations Include:: Maintain BP <130/85, DASH dietary guidelines, Decrease/maintain normal body weight, Moderation of ETOH Hypertension:: Patient communicates acknowledgment Diabetes Patient Diabetes Risk Factors Are:: No documented hx of diabetes Metabolic Syndrome Patient Metabolic Syndrome Risk Factors Are [3 of 5]:: High triglyceride >150, Hypertension, Low HDL <40 [male] or < 50 [female] Recommendations Include:: Reinforce compliance to risk factor modifications, Encouraged follow-up with Primary Care Physician Metabolic Syndrome Response Code:: Patient communicates acknowledgment Sedentary Patient Sedentary Risk Factors Are:: Lack of regular exercise Recommendations Include:: Aerobic exercise 5-7 times/week for 20-30 minutes continuously, Benefits of regular exercise, Discussed home walking program, Monitored Outpatient Cardiac Rehab Sedentary Response Code:: Patient communicates acknowledgment Stress Recommendations Include:: Identification of stressors, and assessment of coping skills, Stress management techniques Stress Response Code:: Patient communicates acknowledgment
--- NOTE | 2021-08-08 14:30 | EKG12_ITS ---
Test Reason : AM EKG Blood Pressure : / mmHG Vent. Rate : 073 BPM Atrial Rate : 073 BPM P-R Int : 170 ms QRS Dur : 080 ms QT Int : 406 ms P-R-T Axes : -18 -63 081 degrees QTc Int : 447 ms Sinus rhythm with occasional ventricular-paced complexes Left anterior fascicular block Anterolateral infarct , possibly acute ACUTE AK / STEMI Abnormal ECG When compared with ECG of 10-AUG-2021 05:31, MANUAL COMPARISON REQUIRED, DATA IS UNCONFIRMED Confirmed by JAYMIE POLANCO, BARBI ([id number]), book editor CHAD CUEVA ([id number]) on 08/13/2021 10:08:26 AM Referred By: Jason Conroy Confirmed By:BARBI COON MD
[2021-08-08] MEDS: Potassium Chloride 10mEq/100mL 10 MEQ/100 ML IV.SOLN. 100 MEQ IV BOLUS ×4 (15:17→19:38)
--- NOTE | 2021-08-08 15:26 | CON.PCM.CA_ITS ---
Assessment & Plan Assessment/Plan (1) Non-STEMI (non-ST elevated myocardial infarction): PLAN: 76-year-old patient who presented to the ER with symptoms of shortness of breath She has on and off symptoms of chest pain for 1 week the symptoms had resolved by the time she came to the ER The electrocardiogram in the ER revealed evidence of ST elevation noted in the anterolateral lead however patient denied symptoms of chest pain and she had hypertension with hypertensive emergency systolic blood pressure 248 Patient also was in severe pulmonary edema requiring intubation in the Delivery Assistant. Delete that Cardiovascular recommendation and plan; 1. Patient evaluation in the Delivery Assistant and echocardiogram showed moderate LV dysfunction with ejection fraction in the range of 40-45% Segmental wall motion abnormality with anteroapical and septal hypokinesia no significant valve abnormality. 2. Patient was taken back to the Delivery Assistant today and she had clear evidence of ruptured plaque in the LAD distribution however patency of the LAD was noted with some haziness in the mid LAD requiring PCI and stenting of the LAD with PTCA of the sidebranch diagonal. With achievement of GONZALEZ-3 flow in the LAD and the sidebranch. We will continue on Integrilin for 18-hour. I will continue to monitor cardiac biomarkers high sensitive troponin The RCA had 75% mid stenosis, underwent PCI and stenting of the RCA 3. Patient to continue on dual antiplatelet therapy with a low-dose aspirin and to be cautious because of the history of allergy to aspirin use Benadryl and if needed steroids Solu-Medrol as needed, in addition to Brilinta 90 mg twice daily, patient has history of multiple allergies need to discuss statin therapy 4. Continue treatment with diuretic and will add beta-josh and losartan once she is extubated Also to monitor electrolytes are her serum potassium was low today's 3.0 her renal function was within normal. 5. Patient had atherosclerosis in the proximal left circumflex as well as sidebranch involving high OM1 and OM 2 This can be set up as elective PCI in 3 to 4 weeks once she is stable clinically. 6. We will continue to monitor and follow-up clinically (2) Hypertension: (3) Hypertensive emergency: HPI Consult Data Date of Consult: 08/08/21 HPI Narrative Reason for Consultation: CAD with non-ST elevation [place] HPI Narrative: COREEN JAY, is a 76 F who presents [facility] Medical History Cellulitis Fracture of metatarsal of left foot, closed Home Medications cetirizine [Zyrtec] 10 mg PO DAILY 02/12/14 [History Last Taken Unknown] conjugated estrogens [Premarin] 0.625 mg PO DAILY 02/12/14 [History Last Taken Unknown] Gastrocrom 200 mg PO 4X/DAY 01/27/19 [History Last Taken Unknown] prednisone 10 mg tablet 5 mg PO DAILY tab 01/27/19 [History Last Taken Unknown] chlordiazepoxide-clidinium 2.5 mg PO DAILY PRN 02/16/19 [History Last Taken Unknown] nitrofurantoin macrocrystal 1 tab PO DAILY 04/02/20 [History Last Taken Unknown] acetaminophen 325 mg capsule 325 mg PO ONCE PRN 01/02/21 [History Last Taken Unknown] ciprofloxacin HCl 500 mg tablet 500 mg PO BID PRN tab 01/02/21 [History Last Taken Unknown] clindamycin HCl 150 mg capsule 300 mg PO 4X/DAY PRN cap 01/02/21 [History Last Taken Unknown] lithium aspartate 5 mg capsule 5 mg PO DAILY PRN 01/02/21 [History Last Taken Unknown] olopatadine 0.2 % eye drops 1 drp OPHTHALMIC (EYE) DAILY 01/02/21 [History Last Taken Unknown] prednisolone acetate 0.12 % eye drops,suspension 1 drp OPHTHALMIC (EYE) .qod ml 01/02/21 [History Last Taken Unknown] triamterene 37.5 mg-hydrochlorothiazide 25 mg capsule 1 cap PO DAILY PRN 01/02/21 [History Last Taken Unknown] clindamycin HCl 300 mg PO 4X/DAY #80 capsule 01/06/21 [Rx Last Taken Unknown] Allergy/AdvReac Type Severity Reaction Status Date / Time alprazolam [From Xanax] Allergy Unknown Unknown Verified 08/08/21 02:30 Iroquois And Derivatives Allergy Unknown Unknown Verified 08/08/21 02:30 mushroom Allergy Unknown Unknown Verified 08/08/21 02:30 paroxetine [From Paxil] Allergy Unknown Unknown Verified 08/08/21 02:30 peanut Allergy Unknown Unknown Verified 08/08/21 02:30 tolmetin [From Tolectin] Allergy Unknown Unknown Verified 08/08/21 02:30 Yeast Allergy Unknown Unknown Verified 08/08/21 02:30 acetaminophen Allergy Other Verified 08/08/21 02:30 [From Darvocet-N] aspirin Allergy Other Verified 08/08/21 02:30 codeine Allergy Other Verified 08/08/21 02:30 fluconazole [From Diflucan] Allergy Rash Verified 08/08/21 02:30 lidocaine Allergy Other Verified 08/08/21 02:30 meperidine HCl [From Demerol] Allergy Other Verified 08/08/21 02:30 metronidazole [From Metrogel] Allergy Rash Verified 08/08/21 02:30 Opioids - Morphine Analogues Allergy Other Verified 08/08/21 02:30 oxycodone HCl [From Percodan] Allergy Other Verified 08/08/21 02:30 oxycodone terephthalate Allergy Other Verified 08/08/21 02:30 [From Percodan] Penicillins Allergy Rash Verified 08/08/21 02:30 propoxyphene napsylate Allergy Other Verified 08/08/21 02:30 [From Darvocet-N] Sulfa (Sulfonamide Allergy Rash Verified 08/08/21 02:30 Antibiotics) Beef Containing Products AdvReac Severe Unknown Verified 08/08/21 02:30 cheese AdvReac Mild Unknown Verified 08/08/21 02:30 egg AdvReac Unknown Unknown Verified 08/08/21 02:30 maltose AdvReac Unknown Unknown Verified 08/08/21 02:30 adhesive tape AdvReac Rash Verified 08/08/21 02:30 Cephalosporins AdvReac Shortness Verified 08/08/21 02:30 of breath cyclobenzaprine AdvReac NEEDS Verified 08/08/21 02:30 [From Flexeril] FOLLOW-UP epinephrine AdvReac NEEDS Verified 08/08/21 02:30 FOLLOW-UP estrogens, conjugated AdvReac NEEDS Verified 08/08/21 02:30 [From Premarin] FOLLOW-UP lisinopril AdvReac Shortness Verified 08/08/21 02:30 of breath midazolam [From Versed] AdvReac NEEDS Verified 08/08/21 02:30 FOLLOW-UP ofloxacin [From Floxin] AdvReac NEEDS Verified 08/08/21 02:30 FOLLOW-UP salicylates AdvReac Shortness Verified 08/08/21 02:30 of breath spider venom AdvReac Nausea Verified 08/08/21 02:30 Family History Other Allergies Asthma Rheumatic heart disease Surgical History H/O: hysterectomy Social History Smoking Status: Never smoker alcohol intake: never substance use type: does not use diet: low salt and other what type of physical activity do you participate in: none seatbelt use: always do you feel safe at home: Yes additional social history: Physical Exam Narrative Patient was seen and examined in the cardiac Delivery Assistant She was intubated on a ventilator and has been stable hemodynamically blood pressure is well controlled Cardiac examination S1-S2 is regular no murmur no systolic or diastolic murmur Chest examination bilateral inspiratory crackles Risk Stratification Risk Stratification Applicable: Yes Age >/= 65: Yes >/= 3 CAD Risk Factors (HTN, HLD, DM, family hx of CAD, or current smoker): Yes Aspirin Use in the Past 7 Days: No Severe Angina (>/= episodes in 24 hours): Yes EKG ST Changes >/= 0.5mm: Yes Positive Cardiac Marker: Yes GONZALEZ Risk Stratification Score: 5 GONZALEZ % Risk: 25% Risk Objective Data Vital Signs: Vital Signs Temp Pulse Resp BP Pulse Ox 98.1 F 66 16 135/73 H 95 08/08/21 08:00 08/08/21 13:45 08/08/21 13:45 08/08/21 13:45 08/08/21 13:45 Oxygen Flow Rate (L/min) 15 Oxygen Delivery Method Mechanical Ventilator Weight: 188 lb 7.924 oz Body Mass Index (BMI) 29.2 Intake & Output: Intake and Output for Last 24 Hours 08/06/21 08/07/21 08/08/21 23:59 23:59 23:59 Intake Total 731.09 / 731.09 Output Total 2425 / 2425 Balance -1693.91 / -1693.91 Lab / Micro Data Result Diagrams: 08/08/21 09:40 08/08/21 09:40 Labs: Laboratory Results - last 24 hr 08/08/21 02:40: WBC 16.6 H, RBC 4.23, Hgb 13.2, Hct 41.1, MCV 97.2, MCH 31.2, MCHC 32.1, RDW Std Deviation 47.5 H, RDW Coeff of Eboni 13.2, Plt Count 464 H, MPV 9.6, Immature Gran % (Auto) 0.700, Neut % (Auto) 77.3 H, Lymph % (Auto) 16.4 L, [place] % (Auto) 5.0, Eos % (Auto) 0.4, Baso % (Auto) 0.2, Absolute Neuts (auto) 12.8 H, Absolute Lymphs (auto) 2.72, Nucleated RBC % 0 08/08/21 02:40: PT 11.9, INR 0.9, APTT 27.6 08/08/21 02:40: Sodium 136, Potassium 3.9, Chloride 102, Carbon Dioxide 25.0, Anion Gap 9, BUN 31 H, Creatinine 1.11 H, Estim Creat Clear Calc 43.50, Est GFR (MDRD) Af Amer 61, Est GFR (MDRD) Non-Af 51 L, BUN/Creatinine Ratio 27.9 H, Glucose 126 H, Calcium 9.1, Troponin I High Sens 6116 H* 08/08/21 02:40: B-Natriuretic Peptide 564.9 H 08/08/21 06:50: Total Creatine Kinase 108, Triglycerides 330 H 08/08/21 06:50: Troponin I High Sens 5631 H* 08/08/21 09:40: WBC 21.3 H, RBC 3.77 L, Hgb 11.7 L, Hct 35.7 L, MCV 94.7, MCH 31.0, MCHC 32.8, RDW Std Deviation 46.9 H, RDW Coeff of Eboni 13.4, Plt Count 398, MPV 9.7 08/08/21 09:40: Sodium 138, Potassium 3.0 L, Chloride 106, Carbon Dioxide 23.0, Anion Gap 9, BUN 26 H, Creatinine 0.87, Estim Creat Clear Calc 55.49, Est GFR (MDRD) Af Amer 82, Est GFR (MDRD) Non-Af 67, BUN/Creatinine Ratio 29.9 H, Glucose 90, Calcium 8.1 L, Total Bilirubin 0.50, AST 45 H, ALT 54, Alkaline Phosphatase 69, Total Protein 6.1 L, Albumin 2.3 L, Globulin 3.8, Albumin/Globulin Ratio 0.6 L 08/08/21 09:40: Triglycerides 339 H, Cholesterol 168, LDL Cholesterol 53, VLDL Cholesterol 68 H, HDL Cholesterol 47 08/08/21 09:40: Troponin I High Sens 6718 H* Micro: Microbiology 08/08/21 04:53 Sputum, Tracheal Aspirate Gram Stain - Final 08/08/21 06:50 Nasal Secretion SARS-CoV-2 Antigen (Rapid) - Final Cardiology Labs/Tests 08/08/21 02:40: WBC 16.6 H, RBC 4.23, Hgb 13.2, Hct 41.1, MCV 97.2, MCH 31.2, MCHC 32.1, Plt Count 464 H, MPV 9.6, Immature Gran % (Auto) 0.700, Neut % (Auto) 77.3 H, Lymph % (Auto) 16.4 L, [place] % (Auto) 5.0, Eos % (Auto) 0.4, Baso % (Auto) 0.2, Absolute Neuts (auto) 12.8 H, Nucleated RBC % 0 08/08/21 02:40: PT 11.9, INR 0.9, APTT 27.6 08/08/21 02:40: Sodium 136, Potassium 3.9, Chloride 102, Carbon Dioxide 25.0, Anion Gap 9, BUN 31 H, Creatinine 1.11 H, Est GFR (MDRD) Af Amer 61, Est GFR (MDRD) Non-Af 51 L, BUN/Creatinine Ratio 27.9 H, Glucose 126 H, Calcium 9.1 08/08/21 02:40: B-Natriuretic Peptide 564.9 H 08/08/21 06:50: Triglycerides 330 H 08/08/21 09:40: WBC 21.3 H, RBC 3.77 L, Hgb 11.7 L, Hct 35.7 L, MCV 94.7, MCH 31.0, MCHC 32.8, Plt Count 398, MPV 9.7 08/08/21 09:40: Sodium 138, Potassium 3.0 L, Chloride 106, Carbon Dioxide 23.0, Anion Gap 9, BUN 26 H, Creatinine 0.87, Est GFR (MDRD) Af Amer 82, Est GFR (MDRD) Non-Af 67, BUN/Creatinine Ratio 29.9 H, Glucose 90, Calcium 8.1 L, Total Bilirubin 0.50 08/08/21 09:40: Triglycerides 339 H, Cholesterol 168, LDL Cholesterol 53, VLDL Cholesterol 68 H, HDL Cholesterol 47 Rhythm: EKG: ECHO: Stress Test: Cardiac Cath: PCI: CT Surgery: Holter monitor: EPS: PPM: CXR: Chest CT Scan: Radiography Diagnostic Testing: Radiology Impression Chest X-Ray 08/08/21 02:50 IMPRESSION: Infiltration or atelectasis in the right lower lung field. Electronically Signed: Lucio Antunez MD at 3:28 EST , Service support , KUB X-Ray 08/08/21 04:23 IMPRESSION: OG tube terminates over the distal stomach with sidehole below the diaphragm. Partially visualized bowel gas pattern is distended. Electronically Signed: Josias Vasquez MD at 5:43 EST Tel , Service support , Chest X-Ray 08/08/21 05:25 IMPRESSION: 1. Endotracheal tube and nasogastric tube are in adequate position. 2. Bilateral perihilar infiltrates, probably representing pulmonary edema. Overlying infection is not excluded. Electronically Signed: Lucio Antunez MD at 6:35 EST , Service support , Echocardiogram 08/08/21 09:26 Interpretation Summary The estimated ejection fraction is 40-45 %. Moderate LV systolic Dysfunction Grade # I diastolic Dysfunction Anteroseptal and Apical Hypokinesia Mild MR Mild TR Ordering Physician: Jason Conroy Referring Physician: Jason Conroy Performed By: Nancy Chamorro, MIAH
[2021-08-08] MEDS: Atorvastatin Calcium 10 MG Tablet PO (21:45)
[2021-08-08] MEDS: TICAGRELOR 90 MG TABLET PO (21:45)
[2021-08-08 23:03] LABS: Anion Gap 7 (5-15); BUN 25 mg/dL (7-18); BUN/Creat Ratio 21.4 RATIO (10-20); Calcium,Total 7.8 mg/dL (8.5-10.1); Chloride 107 mmol/L (98-107); Creatinine, Serum 1.17 mg/dL (0.55-1.02); EST Glomerular Filtration Rate 48 mL/min (>60); Est Glom Filt Rate - Afr Amer 58 mL/min (>60); Estimated Creatinine Clearance 41.26 ml/min; Glucose 106 mg/dL (74-106); Potassium 5.2 mmol/L (3.5-5.1); Sodium Level 139 mmol/L (136-145)
[2021-08-09] VITALS (21 sets, daily range): BP systolic 119–174; BP diastolic 66–97; PULSE 65–93; RESP 12–22; TEMP 36.7–37.1; O2SAT 94–100
[2021-08-09 03:45] LABS: Absolute Lymphocyte Count 2.19 X10^3/uL (0.83-4.51); Basophil# 0.03 X10^3/uL; Basophil% 0.2 % (0-1); Eosinophil# 0.06 X10^3/uL; Eosinophils% 0.4 % (0-5); Hematocrit 33.7 % (37-47); Lymphocyte # 2.19 X10^3/ul (0.83-4.51); Lymphocyte % 13.2 % (19-41); Mean Corp Hgb Conc 32.6 g/dL (32-36); Mean Corpuscular Hgb 31.8 pg (27.0-32.0); Mean Corpuscular Volume 97.4 fL (81-99); Mean Platelet Vol. 9.8 fl (6.2-12.0); Monocyte# 1.23 X10^3/uL; Monocyte% 7.4 % (0-10); NRBC Flagged by Analyzer 0 % (0-5); Neutrophil # 13.01 X10^3/uL (2.7-7.7); Neutrophil % 78.3 % (47-70); Platelet Count 332 K/mm3 (150-450); RBC Distribution Width CV 13.7 % (11.6-14.6); RBC Distribution Width SD 48.7 fl (35.1-43.9); Red Blood Count 3.46 M/mm3 (4.2-5.4); White Blood Count 16.6 K/mm3 (4.4-11.0)
[2021-08-09 04:11] LABS: ALB/GLOB Ratio 0.6 RATIO (0.9-2.4); AST(SGOT) 35 U/L (15-37); Alanine Aminotransfer ALT/SGPT 49 U/L (13-56); Albumin, Serum 2.4 g/dL (3.2-5.0); Alkaline Phosphatase 63 U/L (45-117); Anion Gap 10 (5-15); BUN 26 mg/dL (7-18); BUN/Creat Ratio 22.4 RATIO (10-20); Calcium,Total 8.2 mg/dL (8.5-10.1); Chloride 103 mmol/L (98-107); Creatinine, Serum 1.16 mg/dL (0.55-1.02); EST Glomerular Filtration Rate 48 mL/min (>60); Est Glom Filt Rate - Afr Amer 58 mL/min (>60); Estimated Creatinine Clearance 41.62 ml/min; Globulin 3.9 g/dL (2.2-4.2); Glucose 122 mg/dL (74-106); Potassium 4.6 mmol/L (3.5-5.1); Protein, Total 6.3 g/dL (6.4-8.2); Sodium Level 137 mmol/L (136-145)
[2021-08-09 06:26] LABS: Allen Test Positive; Base Excess 0 mmol/L (-2 to +2); Bicarbonate 22.7 mmol/L (22-26); Blood Gas Specimen Type ART; FI02 21; Mode AC; O2 Delivery Device Adult Vent; PEEP 5; PO2 71 mmHG (75-100); PS 5; SITE L Radial; SO2 96 % (95-99); Total Carbon Dioxide 24 mmol/L; pCO2 27.5 mmHg (35-45); pH 7.53 (7.35-7.45)
--- NOTE | 2021-08-09 06:30 | NURSING ---
Raffaele RT at bedside, patient extubated and saturating well on room air.
--- NOTE | 2021-08-09 07:05 | PCM.PN.INT ---
Assessment & Plan Assessment/Plan (1) Acute respiratory failure with hypoxia: (2) Hypertensive emergency: (3) Pulmonary edema: PLAN: RECOMMENDATIONS: 1. Set systolic BP goal for 140 2. Extubate patient and wean oxygen as tolerated 3. Discontinue Precedex 4. Continue cardiology recommendations 5. Potential transfer from the intensive care unit later today pending response to extubation IMPRESSIONS: 1. Acute hypoxic respiratory failure secondary to flash pulmonary edema secondary to hypertensive emergency Patient with increased infiltrates bilaterally. Patient did have significantly elevated blood pressure on presentation. Patient has multiple drug allergies reported of various reactions. Some concern the patient may have had high blood pressure for a protracted period of time. Patient blood pressure is much more appropriate today. Will attempt to decrease systolic blood pressure goal to 140 with plans of normalization tomorrow. Patient able to be on room air overnight, so likely able to be transferred from the intensive care unit later today if able to tolerate extubation. 2. Coronary artery disease/non-ST elevation IN Patient reportedly was in ST elevation IN in the ER, but lesion of interest in the RCA reportedly does not correspond to ECG pattern. Cardiology is following. Patient is on a nitro drip. Patient has received Plavix without allergic response. Cardiology is following. Patient with multiple interventions yesterday. 3. Multiple allergies/overweight/advanced age/chronic steroids Complicates care, management, recovery and prognosis. Will reinitiate at baseline steroids for now. Cannot exclude the need for stress dose steroids, but will follow closely. Patient does not have any signs or symptoms of allergic reaction at this time. Unclear true reactions as many are unknown or vague. Patient is currently intubated and unable to clarify. TIME: 32 minutes critical care time spent addressing patient's acute hypoxic respiratory failure, hypertensive emergency, coronary artery disease, review of all data and collaboration with care team Subjective Subjective Patient did okay overnight. No acute issues were reported. Patient was able to have her cardiac intervention yesterday and tolerated this well. Patient has been off knee immobilizer and no hematoma at the cath site has been reported. Objective Data Objective Data Vital Signs: Vital Signs Temp Pulse Resp BP Pulse Ox 37.1 C 76 14 119/66 95 08/09/21 04:00 08/09/21 07:00 08/09/21 07:00 08/09/21 07:00 08/09/21 07:00 Oxygen Flow Rate (L/min) 15 Oxygen Delivery Method Room Air Weight: 84.414 kg Body Mass Index (BMI) 29.2 Intake & Output: Intake and Output for Last 24 Hours 08/07/21 08/08/21 08/09/21 23:59 23:59 23:59 Intake Total 1815.98 / 1894.18 283.74 / 283.74 Output Total 3775 / 4225 600 / 600 Balance -1959.02 / -2330.82 -316.26 / -316.26 Lab / Micro Data Result Diagrams: 08/09/21 03:35 08/09/21 03:35 Labs: Laboratory Results - last 24 hr 08/08/21 06:50: Total Creatine Kinase 108, Triglycerides 330 H 08/08/21 06:50: Troponin I High Sens 5631 H* 08/08/21 09:40: WBC 21.3 H, RBC 3.77 L, Hgb 11.7 L, Hct 35.7 L, MCV 94.7, MCH 31.0, MCHC 32.8, RDW Std Deviation 46.9 H, RDW Coeff of Eboni 13.4, Plt Count 398, MPV 9.7 08/08/21 09:40: Sodium 138, Potassium 3.0 L, Chloride 106, Carbon Dioxide 23.0, Anion Gap 9, BUN 26 H, Creatinine 0.87, Estim Creat Clear Calc 55.49, Est GFR (MDRD) Af Amer 82, Est GFR (MDRD) Non-Af 67, BUN/Creatinine Ratio 29.9 H, Glucose 90, Calcium 8.1 L, Total Bilirubin 0.50, AST 45 H, ALT 54, Alkaline Phosphatase 69, Total Protein 6.1 L, Albumin 2.3 L, Globulin 3.8, Albumin/Globulin Ratio 0.6 L 08/08/21 09:40: Triglycerides 339 H, Cholesterol 168, LDL Cholesterol 53, VLDL Cholesterol 68 H, HDL Cholesterol 47 08/08/21 09:40: Troponin I High Sens 6718 H* 08/08/21 22:20: Sodium 139, Potassium 5.2 H, Chloride 107, Carbon Dioxide 25.0, Anion Gap 7, BUN 25 H, Creatinine 1.17 H, Estim Creat Clear Calc 41.26, Est GFR (MDRD) Af Amer 58 L, Est GFR (MDRD) Non-Af 48 L, BUN/Creatinine Ratio 21.4 H, Glucose 106, Calcium 7.8 L 08/09/21 03:35: WBC 16.6 H, RBC 3.46 L, Hgb 11.0 L, Hct 33.7 L, MCV 97.4, MCH 31.8, MCHC 32.6, RDW Std Deviation 48.7 H, RDW Coeff of Eboni 13.7, Plt Count 332, MPV 9.8, Immature Gran % (Auto) 0.500, Neut % (Auto) 78.3 H, Lymph % (Auto) 13.2 L, [place] % (Auto) 7.4, Eos % (Auto) 0.4, Baso % (Auto) 0.2, Absolute Neuts (auto) 13.0 H, Absolute Lymphs (auto) 2.19, Nucleated RBC % 0 08/09/21 03:35: Sodium 137, Potassium 4.6, Chloride 103, Carbon Dioxide 24.0, Anion Gap 10, BUN 26 H, Creatinine 1.16 H, Estim Creat Clear Calc 41.62, Est GFR (MDRD) Af Amer 58 L, Est GFR (MDRD) Non-Af 48 L, BUN/Creatinine Ratio 22.4 H, Glucose 122 H, Calcium 8.2 L, Total Bilirubin 0.70, AST 35, ALT 49, Alkaline Phosphatase 63, Total Protein 6.3 L, Albumin 2.4 L, Globulin 3.9, Albumin/Globulin Ratio 0.6 L Micro: Microbiology 08/08/21 04:53 Sputum, Tracheal Aspirate Gram Stain - Final 08/08/21 06:50 Nasal Secretion SARS-CoV-2 Antigen (Rapid) - Final ABG Data ABG results: ABG 08/09/21 06:21 Specimen Type ART Sample Site L Radial pH 7.53 H Bicarbonate Actual 22.7 Total CO2 24 Base Excess 0 O2 Saturation 96 O2 % 21 ABG pCO2 27.5 L ABG pO2 71 L [place] Test Positive O2 Delivery Device Adult Vent Vent Mode AC POC PEEP 5 POC Pressure Suppt 5 Radiography Diagnostic Testing: Radiology Impression Echocardiogram 08/08/21 09:26 Interpretation Summary The estimated ejection fraction is 40-45 %. Moderate LV systolic Dysfunction Grade # I diastolic Dysfunction Anteroseptal and Apical Hypokinesia Mild MR Mild TR Ordering Physician: Jason Conroy Referring Physician: Jason Conroy Performed By: Nancy Chamorro RDCS Physical Exam Const General Appearance: intubated and patient mechanically ventilated Nutritional Appearance: overweight HEENT normocephalic, head/scalp atraumatic and moist oral mucous membranes Eyes conjunctivae normal Sclera: No sclera abnormal Neck full ROM Neck Narrative: Thick neck Resp Auscultation: diminished lung sounds; Negative for rales, rhonchi or wheezes Cardio S1 normal heart sound, S2 normal heart sound, no murmurs, no rub and no gallops Jugular Venous Distention: JVD to the level of the angle of the jaw GI normal to inspection, nondistended, normoactive bowel sounds Extremity General Extremity: edema bilateral (2+) lower extremity Skin no rashes or lesions noted Neuro Sensorium / Orientation: sedated on vent RASS: -2 Psych Activity / Motor Behavior: restless Charges/Coding Procedures Hospitalists Procedures: 55615 Critial Care 1st Hr
--- NOTE | 2021-08-09 09:00 | PN.HOSP_ITS ---
Subjective Subjective Follow-up on Acute STEMI: Patient was seen and examined. She was extubated this morning. She denies any chest pain, dizziness or palpitations Objective Data Objective Data Vital Signs: Vital Signs Temp Pulse Resp BP Pulse Ox 98.8 F 76 14 119/66 95 08/09/21 04:00 08/09/21 07:00 08/09/21 07:00 08/09/21 07:00 08/09/21 07:00 Oxygen Flow Rate (L/min) 15 Oxygen Delivery Method Room Air Weight: 84.414 kg Body Mass Index (BMI) 29.2 Intake & Output: Intake and Output for Last 24 Hours 08/07/21 08/08/21 08/09/21 23:59 23:59 23:59 Intake Total 1815.98 / 1894.18 544.64 / 544.64 Output Total 3775 / 4225 600 / 600 Balance -1959.02 / -2330.82 -55.36 / -55.36 Lab / Micro Data Result Diagrams: 08/09/21 03:35 08/09/21 03:35 Labs: Laboratory Results - last 24 hr 08/08/21 06:50: Total Creatine Kinase 108, Triglycerides 330 H 08/08/21 09:40: WBC 21.3 H, RBC 3.77 L, Hgb 11.7 L, Hct 35.7 L, MCV 94.7, MCH 31.0, MCHC 32.8, RDW Std Deviation 46.9 H, RDW Coeff of Eboni 13.4, Plt Count 398, MPV 9.7 08/08/21 09:40: Sodium 138, Potassium 3.0 L, Chloride 106, Carbon Dioxide 23.0, Anion Gap 9, BUN 26 H, Creatinine 0.87, Estim Creat Clear Calc 55.49, Est GFR (MDRD) Af Amer 82, Est GFR (MDRD) Non-Af 67, BUN/Creatinine Ratio 29.9 H, Glucose 90, Calcium 8.1 L, Total Bilirubin 0.50, AST 45 H, ALT 54, Alkaline Phosphatase 69, Total Protein 6.1 L, Albumin 2.3 L, Globulin 3.8, Albumin/Globulin Ratio 0.6 L 08/08/21 09:40: Triglycerides 339 H, Cholesterol 168, LDL Cholesterol 53, VLDL Cholesterol 68 H, HDL Cholesterol 47 08/08/21 09:40: Troponin I High Sens 6718 H* 08/08/21 22:20: Sodium 139, Potassium 5.2 H, Chloride 107, Carbon Dioxide 25.0, Anion Gap 7, BUN 25 H, Creatinine 1.17 H, Estim Creat Clear Calc 41.26, Est GFR (MDRD) Af Amer 58 L, Est GFR (MDRD) Non-Af 48 L, BUN/Creatinine Ratio 21.4 H, Glucose 106, Calcium 7.8 L 08/09/21 03:35: WBC 16.6 H, RBC 3.46 L, Hgb 11.0 L, Hct 33.7 L, MCV 97.4, MCH 31.8, MCHC 32.6, RDW Std Deviation 48.7 H, RDW Coeff of Eboni 13.7, Plt Count 332, MPV 9.8, Immature Gran % (Auto) 0.500, Neut % (Auto) 78.3 H, Lymph % (Auto) 13.2 L, [place] % (Auto) 7.4, Eos % (Auto) 0.4, Baso % (Auto) 0.2, Absolute Neuts (auto) 13.0 H, Absolute Lymphs (auto) 2.19, Nucleated RBC % 0 08/09/21 03:35: Sodium 137, Potassium 4.6, Chloride 103, Carbon Dioxide 24.0, Anion Gap 10, BUN 26 H, Creatinine 1.16 H, Estim Creat Clear Calc 41.62, Est GFR (MDRD) Af Amer 58 L, Est GFR (MDRD) Non-Af 48 L, BUN/Creatinine Ratio 22.4 H, Glucose 122 H, Calcium 8.2 L, Total Bilirubin 0.70, AST 35, ALT 49, Alkaline Phosphatase 63, Total Protein 6.3 L, Albumin 2.4 L, Globulin 3.9, Albumin/Globulin Ratio 0.6 L Micro: Microbiology 08/08/21 04:53 Sputum, Tracheal Aspirate Gram Stain - Final 08/08/21 04:53 Sputum, Tracheal Aspirate Respiratory Culture - Preliminary Appears to be normal respiratory tatiana. Further studies to follow. 08/08/21 06:50 Nasal Secretion SARS-CoV-2 Antigen (Rapid) - Final ABG Data ABG results: ABG 08/09/21 06:21 Specimen Type ART Sample Site L Radial pH 7.53 H Bicarbonate Actual 22.7 Total CO2 24 Base Excess 0 O2 Saturation 96 O2 % 21 ABG pCO2 27.5 L ABG pO2 71 L Newton Test Positive O2 Delivery Device Adult Vent Vent Mode AC POC PEEP 5 POC Pressure Suppt 5 Radiography Diagnostic Testing: Radiology Impression Echocardiogram 08/08/21 09:26 Interpretation Summary The estimated ejection fraction is 40-45 %. Moderate LV systolic Dysfunction Grade # I diastolic Dysfunction Anteroseptal and Apical Hypokinesia Mild MR Mild TR Ordering Physician: Jason Conroy Referring Physician: Jason Conroy Performed By: Nancy Chamorro RDCS Physical Exam Narrative Physical exam: General: Alert, Oriented x3, Cooperative, No apparent distress, Well developed, off oxygen HEENT: Atraumatic Oral: Moist Mucosa Neck: Supple Lungs: Clear to auscultation Cardiovascular: HS I+II, regular, no murmurs Abdomen: Bowel Sounds Present, Soft, Non Tender Extremities: No edema Assessment & Plan Assessment/Plan (1) Acute respiratory failure with hypoxia: (2) Hypertensive emergency: (3) Pulmonary edema: QUALIFIERS: Chronicity: acute Qualified Code(s): J81.0 - Acute pulmonary edema (4) Non-STEMI (non-ST elevated myocardial infarction): PLAN: 1. Acute hypoxic respiratory failure secondary to acute pulmonary edema, resolved Extubated today 08/09/21; currently on room air Continue with breathing treatments as needed Pulmonology following 2. Acute pulmonary edema, 2D echo shows EF of 40 to 45%, resolved Patient has allergy to lisinopril; will monitor for now 3. Acute non-STEMI, patient initially with concern for acute STEMI with ST segment elevation in the anterior lateral leads Cardiac cath on 08/08/21 showed evidence of ruptured plaque in the LAD, resultant PTCA of the side branch diagonal Improve blood flow in the LAD and side branch. She also had a stent to the RCA Continue on aspirin, Brilinta, will add carvedilol 3.125 mg twice daily, increase atorvastatin to 20 mg p.o. nightly Monitor further for allergies 4. History of multiple allergies Charges/Coding Visit Charges Inpatient E&M: 02740 Subs Hosp L3
--- NOTE | 2021-08-09 10:00 | EKG12_ITS ---
Test Reason : AM EKG Blood Pressure : / mmHG Vent. Rate : 076 BPM Atrial Rate : 076 BPM P-R Int : 160 ms QRS Dur : 076 ms QT Int : 370 ms P-R-T Axes : 016 -47 003 degrees QTc Int : 416 ms Sinus rhythm with Premature supraventricular complexes Left anterior fascicular block Anterolateral infarct , age undetermined Abnormal ECG When compared with ECG of 08-AUG-2021 15:25, MANUAL COMPARISON REQUIRED, DATA IS UNCONFIRMED Confirmed by JAYMIE POLANCO, BARBI ([id number]), editorial assistant CHAD CUEVA ([id number]) on 08/13/2021 10:11:29 AM Referred By: Jason Conroy Confirmed By:BARBI COON MD
--- NOTE | 2021-08-09 12:08 | PN.CARD_ITS ---
Subjective Subjective Patient seen in the intensive care unit and discussed with the nursing staff as well as medical team Extubated having sore throat but no symptoms of chest pain. Objective Data Vital Signs: Vital Signs Temp Pulse Resp BP Pulse Ox 98.8 F 86 16 148/67 H 97 08/09/21 04:00 08/09/21 11:00 08/09/21 11:00 08/09/21 11:00 08/09/21 11:00 Oxygen Flow Rate (L/min) 15 Oxygen Delivery Method Room Air Weight: 186 lb 1.6 oz Body Mass Index (BMI) 29.2 Intake & Output: Intake and Output for Last 24 Hours 08/07/21 08/08/21 08/09/21 23:59 23:59 23:59 Intake Total 1815.98 / 1894.18 644.64 / 644.64 Output Total 3775 / 4225 750 / 750 Balance -1959.02 / -2330.82 -105.36 / -105.36 Lab / Micro Data Result Diagrams: 08/09/21 03:35 08/09/21 03:35 Labs: Laboratory Results - last 24 hr 08/08/21 22:20: Sodium 139, Potassium 5.2 H, Chloride 107, Carbon Dioxide 25.0, Anion Gap 7, BUN 25 H, Creatinine 1.17 H, Estim Creat Clear Calc 41.26, Est GFR (MDRD) Af Amer 58 L, Est GFR (MDRD) Non-Af 48 L, BUN/Creatinine Ratio 21.4 H, Glucose 106, Calcium 7.8 L 08/09/21 03:35: WBC 16.6 H, RBC 3.46 L, Hgb 11.0 L, Hct 33.7 L, MCV 97.4, MCH 31.8, MCHC 32.6, RDW Std Deviation 48.7 H, RDW Coeff of Eboni 13.7, Plt Count 332, MPV 9.8, Immature Gran % (Auto) 0.500, Neut % (Auto) 78.3 H, Lymph % (Auto) 13.2 L, [place] % (Auto) 7.4, Eos % (Auto) 0.4, Baso % (Auto) 0.2, Absolute Neuts (auto) 13.0 H, Absolute Lymphs (auto) 2.19, Nucleated RBC % 0 08/09/21 03:35: Sodium 137, Potassium 4.6, Chloride 103, Carbon Dioxide 24.0, Anion Gap 10, BUN 26 H, Creatinine 1.16 H, Estim Creat Clear Calc 41.62, Est GFR (MDRD) Af Amer 58 L, Est GFR (MDRD) Non-Af 48 L, BUN/Creatinine Ratio 22.4 H, Glucose 122 H, Calcium 8.2 L, Total Bilirubin 0.70, AST 35, ALT 49, Alkaline Phosphatase 63, Total Protein 6.3 L, Albumin 2.4 L, Globulin 3.9, Albumin/Globulin Ratio 0.6 L Micro: Microbiology 08/08/21 04:53 Sputum, Tracheal Aspirate Gram Stain - Final 08/08/21 04:53 Sputum, Tracheal Aspirate Respiratory Culture - Preliminary Appears to be normal respiratory tatiana. Further studies to follow. 08/08/21 06:50 Nasal Secretion SARS-CoV-2 Antigen (Rapid) - Final ABG Data ABG results: ABG 08/09/21 06:21 Specimen Type ART Sample Site L Radial pH 7.53 H Bicarbonate Actual 22.7 Total CO2 24 Base Excess 0 O2 Saturation 96 O2 % 21 ABG pCO2 27.5 L ABG pO2 71 L Newton Test Positive O2 Delivery Device Adult Vent Vent Mode AC POC PEEP 5 POC Pressure Suppt 5 Cardiology Labs/Tests 08/08/21 22:20: Sodium 139, Potassium 5.2 H, Chloride 107, Carbon Dioxide 25.0, Anion Gap 7, BUN 25 H, Creatinine 1.17 H, Est GFR (MDRD) Af Amer 58 L, Est GFR (MDRD) Non-Af 48 L, BUN/Creatinine Ratio 21.4 H, Glucose 106, Calcium 7.8 L 08/09/21 03:35: WBC 16.6 H, RBC 3.46 L, Hgb 11.0 L, Hct 33.7 L, MCV 97.4, MCH 31.8, MCHC 32.6, Plt Count 332, MPV 9.8, Immature Gran % (Auto) 0.500, Neut % (Auto) 78.3 H, Lymph % (Auto) 13.2 L, [place] % (Auto) 7.4, Eos % (Auto) 0.4, Baso % (Auto) 0.2, Absolute Neuts (auto) 13.0 H, Nucleated RBC % 0 08/09/21 03:35: Sodium 137, Potassium 4.6, Chloride 103, Carbon Dioxide 24.0, Anion Gap 10, BUN 26 H, Creatinine 1.16 H, Est GFR (MDRD) Af Amer 58 L, Est GFR (MDRD) Non-Af 48 L, BUN/Creatinine Ratio 22.4 H, Glucose 122 H, Calcium 8.2 L, Total Bilirubin 0.70 08/09/21 06:21: pH 7.53 H, Bicarbonate Actual 22.7, Base Excess 0, O2 Saturation 96, ABG pCO2 27.5 L, ABG pO2 71 L, Newton Test Positive Rhythm: Decreasing remains normal sinus rhythm EKG: ST elevation on admission noted in lateral lead lead I aVL as well as in the anterior lead ECHO: Moderate LV systolic dysfunction with ejection fraction in the range of 40-45% with anteroapical and distal septal hypokinesia Cardiac Cath: Ruptured plaque in the mid LAD with occlusion of the sidebranch D1 and a high-grade stenosis involving the mid RCA And significant atherosclerosis involving the high OM1, proximal circumflex and a second OM branch/OM 2 PCI: Patient underwent PCI of the LAD with placement drug-eluting stent as well as PTCA of the sidebranch diagonal branch PCI and stent of the RCA. Radiography Diagnostic Testing: Radiology Impression Echocardiogram 08/08/21 09:26 Interpretation Summary The estimated ejection fraction is 40-45 %. Moderate LV systolic Dysfunction Grade # I diastolic Dysfunction Anteroseptal and Apical Hypokinesia Mild MR Mild TR Ordering Physician: Jason Conroy Referring Physician: Jason Conroy Performed By: Nancy Chamorro, MIAH Physical Exam Narrative Patient alert orientated Evaluated in the intensive care unit Cardiovascular exam; S1-S2 regular, no murmur no systolic or diastolic murmur, no pericardial rub or gallop Chest examination; Normal air entry bilateral Examination of the abdomen soft. Examination lower extremity no clubbing no cyanosis no lower extremity edema Right groin mild bruises at the site of the right common femoral artery arteriotomy site with no evidence of hematoma. Assessment & Plan Assessment/Plan (1) Non-STEMI (non-ST elevated myocardial infarction): PLAN: 76-year-old patient admitted to the hospital with progressive symptoms of shortness of breath which has been ongoing for 7 days Came to the ER and had change in the EKG in the anterolateral with ST elevation Patient had hypertensive emergency with severe pulmonary edema requiring intubation and managed in the intensive care unit. Subsequently she had evaluation by serial cardiac markers which showed significant elevation of high sensitive troponins and echocardiogram abnormal with moderate LV systolic dysfunction ejection fraction in the range of 40-45% Underwent cardiac catheterization identified the culprit lesion which is ruptu red plaque in the mid LAD with occlusion of the sidebranch she had PTCA of the sidebranch which is a D1 and she had PCI and stent of the mid LAD Also noted she had high-grade stenosis involving the mid RCA which she underwent PCI and stent of the mid RCA. Clinical course in the intensive care unit patient improved significantly extubated. Cardiac care plan and recommendations; 1. I discussed with medical team and the nursing staff in regard to the medication and plan of care Patient to continue on DAPT Brilinta 90 mg p.o. twice daily in addition to low- dose aspirin for 1 year 2. As tolerated in regard to carvedilol and losartan patient is allergic to FARAZ inhibitor 3. Patient will be transferred to PCU 4. We will be scheduled for phase 1 cardiac rehab 5. Post discharge to follow-up with her primary television program director Dr. Coates for continuation of cardiac care plan. (2) Pulmonary edema: QUALIFIERS: Chronicity: acute Qualified Code(s): J81.0 - Acute pulmonary edema (3) Hypertensive emergency: (4) Hypertension:
[2021-08-09] MEDS: Aspirin E.C. 81 MG Tablet PO (15:20)
[2021-08-09] MEDS: TICAGRELOR 90 MG TABLET PO (15:20)
[2021-08-09] MEDS: Famotidine 20 MG Tablet GT (15:20)
[2021-08-09] MEDS: predniSONE 5 MG Tablet PO (15:20)
[2021-08-09] MEDS: Carvedilol 3.125 MG TABLET PO ×2 (15:20→22:02)
--- NOTE | 2021-08-09 21:09 | NURSING ---
Pt states that her son just notified her that he tested positive for covid and is unable to assist her at home. Pt states that she would like to have home healthcare to assist her when she gets home, as well as transportation home from the hospital.
[2021-08-09] MEDS: Atorvastatin Calcium 20 MG Tablet PO (22:03)
[2021-08-10] VITALS (9 sets, daily range): BP systolic 130–159; BP diastolic 73–99; PULSE 76–83; RESP 17–18; TEMP 36.6–37.2; O2SAT 97–100
[2021-08-10 06:23] LABS: Absolute Lymphocyte Count 2.11 X10^3/uL (0.83-4.51); Absolute Neutrophil Count 12.1 X10^3/uL (2.0-7.7); Basophil# 0.05 X10^3/uL; Basophil% 0.3 % (0-1); Eosinophil# 0.16 X10^3/uL; Hematocrit 33.1 % (37-47); Hemoglobin 10.6 g/dL (12.0-15.0); Lymphocyte # 2.11 X10^3/ul (0.83-4.51); Lymphocyte % 13.4 % (19-41); Mean Corpuscular Hgb 31.1 pg (27.0-32.0); Mean Corpuscular Volume 97.1 fL (81-99); Mean Platelet Vol. 9.7 fl (6.2-12.0); Monocyte# 1.16 X10^3/uL; Monocyte% 7.4 % (0-10); NRBC Flagged by Analyzer 0 % (0-5); Neutrophil # 12.13 X10^3/uL (2.7-7.7); Neutrophil % 77.1 % (47-70); Platelet Count 356 K/mm3 (150-450); RBC Distribution Width CV 13.3 % (11.6-14.6); RBC Distribution Width SD 47.6 fl (35.1-43.9); Red Blood Count 3.41 M/mm3 (4.2-5.4); White Blood Count 15.7 K/mm3 (4.4-11.0)
[2021-08-10 06:39] LABS: Magnesium 1.9 mg/dL (1.6-2.6)
[2021-08-10 06:44] LABS: ALB/GLOB Ratio 0.6 RATIO (0.9-2.4); AST(SGOT) 30 U/L (15-37); Alanine Aminotransfer ALT/SGPT 36 U/L (13-56); Albumin, Serum 2.2 g/dL (3.2-5.0); Alkaline Phosphatase 64 U/L (45-117); Anion Gap 8 (5-15); BUN 17 mg/dL (7-18); Calcium,Total 8.2 mg/dL (8.5-10.1); Chloride 104 mmol/L (98-107); Creatinine, Serum 0.81 mg/dL (0.55-1.02); EST Glomerular Filtration Rate 73 mL/min (>60); Est Glom Filt Rate - Afr Amer 88 mL/min (>60); Glucose 84 mg/dL (74-106); Potassium 3.3 mmol/L (3.5-5.1); Protein, Total 6.2 g/dL (6.4-8.2); Sodium Level 136 mmol/L (136-145)
[2021-08-10] MEDS: CROMOLYN SODIUM 20 MG/ML 200 MG PO ×4 (06:56→21:04)
--- NOTE | 2021-08-10 08:08 | PN.CC_ITS ---
Assessment & Plan Assessment/Plan (1) Acute respiratory failure with hypoxia: (2) Hypertensive emergency: (3) Pulmonary edema: QUALIFIERS: Chronicity: acute Qualified Code(s): J81.0 - Acute pulmonary edema PLAN: RECOMMENDATIONS: 1. Okay to normalize blood pressure 2. Walking oximetry prior to discharge 3. No specific outpatient pulmonary follow-up would be required 4. Hemodynamically stable on room air. Will sign off from a pulmonary/critical care perspective IMPRESSIONS: 1. Acute hypoxic respiratory failure secondary to flash pulmonary edema secondary to hypertensive emergency Patient with increased infiltrates bilaterally. Patient did have significantly elevated blood pressure on presentation. Patient has multiple drug allergies reported of various reactions. Some concern the patient may have had high blood pressure for a protracted period of time. Patient's respiratory status appears to be at baseline at this time. Defer to cardiology on additional diuretics. No need for specific outpatient follow-up from my perspective. Okay to normalize blood pressures 2. Coronary artery disease/non-ST elevation OR Patient reportedly was in ST elevation OR in the ER, but lesion of interest in the RCA reportedly does not correspond to ECG pattern. Cardiology is following. Multiple interventions were completed. Defer to cardiology on recommendations. 3. Multiple allergies/overweight/advanced age/chronic steroids Complicates care, management, recovery and prognosis. Will reinitiate at baseline steroids for now. Cannot exclude the need for stress dose steroids, but will follow closely. Patient does not have any signs or symptoms of allergic reaction at this time. Subjective Subjective Patient did well overnight. Patient reports generalized fatigue and weakness with ambulation, but not really dyspnea. Patient is not reporting any cough. Objective Data Objective Data Vital Signs: Vital Signs Temp Pulse Resp BP Pulse Ox 36.6 C 83 17 159/86 H 100 08/10/21 03:55 08/10/21 07:34 08/10/21 03:55 08/10/21 03:55 08/10/21 03:55 Oxygen Flow Rate (L/min) 15 Oxygen Delivery Method Room Air Weight: 83.1 kg Body Mass Index (BMI) 29.2 Intake & Output: Intake and Output for Last 24 Hours 08/08/21 08/09/21 08/10/21 23:59 23:59 23:59 Intake Total 1815.98 / 1894.18 1882.64 / 1882.64 220 / 220 Output Total 3775 / 4225 750 / 750 Balance -1959.02 / -2330.82 1132.64 / 1132.64 220 / 220 Lab / Micro Data Result Diagrams: 08/10/21 06:07 08/10/21 06:07 Labs: Laboratory Results - last 24 hr 08/10/21 06:07: WBC 15.7 H, RBC 3.41 L, Hgb 10.6 L, Hct 33.1 L, MCV 97.1, MCH 31.1, MCHC 32.0, RDW Std Deviation 47.6 H, RDW Coeff of Eboni 13.3, Plt Count 356, MPV 9.7, Immature Gran % (Auto) 0.800, Neut % (Auto) 77.1 H, Lymph % (Auto) 13.4 L, [place] % (Auto) 7.4, Eos % (Auto) 1.0, Baso % (Auto) 0.3, Absolute Neuts (auto) 12.1 H, Absolute Lymphs (auto) 2.11, Nucleated RBC % 0 08/10/21 06:07: Sodium 136, Potassium 3.3 L, Chloride 104, Carbon Dioxide 24.0, Anion Gap 8, BUN 17, Creatinine 0.81, Estim Creat Clear Calc 59.60, Est GFR (MDRD) Af Amer 88, Est GFR (MDRD) Non-Af 73, BUN/Creatinine Ratio 21.0 H, Glucose 84, Calcium 8.2 L, Total Bilirubin 0.80, AST 30, ALT 36, Alkaline Phosphatase 64, Total Protein 6.2 L, Albumin 2.2 L, Globulin 4.0, Albumin/Globulin Ratio 0.6 L 08/10/21 06:07: Magnesium 1.9 Micro: Microbiology 08/08/21 04:53 Sputum, Tracheal Aspirate Gram Stain - Final 08/08/21 04:53 Sputum, Tracheal Aspirate Respiratory Culture - Preliminary Appears to be normal respiratory tatiana. Further studies to follow. 08/08/21 06:50 Nasal Secretion SARS-CoV-2 Antigen (Rapid) - Final Physical Exam Const alert, oriented x3 and no apparent distress Nutritional Appearance: overweight HEENT normocephalic, head/scalp atraumatic and moist oral mucous membranes HEENT Narrative: Blister noted on the lip Eyes conjunctivae normal Sclera: No sclera abnormal Neck full ROM Neck Narrative: Thick neck Resp normal respiratory effort and normal air movement Auscultation: Negative for rales, rhonchi or wheezes Cardio S1 normal heart sound, S2 normal heart sound, no murmurs, no rub and no gallops Jugular Venous Distention: JVD to the level of the angle of the jaw GI normal to inspection, nondistended, normoactive bowel sounds Extremity General Extremity: edema bilateral (2+) lower extremity Skin no rashes or lesions noted Neuro oriented x3, CN's II-XII intact bilaterally and moves all extremities Charges/Coding Visit Charges Inpatient E&M: 82502 Subs Hosp L2
[2021-08-10] MEDS: Aspirin E.C. 81 MG Tablet PO (08:42)
[2021-08-10] MEDS: predniSONE 5 MG Tablet PO (08:42)
[2021-08-10] MEDS: TICAGRELOR 90 MG TABLET PO ×2 (08:43→21:05)
[2021-08-10] MEDS: Famotidine 20 MG Tablet GT ×2 (08:43→21:06)
[2021-08-10] MEDS: Carvedilol 3.125 MG TABLET PO ×2 (08:43→21:06)
--- NOTE | 2021-08-10 10:00 | EKG12_ITS ---
Test Reason : AM EKG Blood Pressure : / mmHG Vent. Rate : 077 BPM Atrial Rate : 077 BPM P-R Int : 160 ms QRS Dur : 084 ms QT Int : 412 ms P-R-T Axes : -11 -55 076 degrees QTc Int : 466 ms Normal sinus rhythm Left anterior fascicular block Anterolateral infarct , possibly acute ACUTE PR / STEMI Abnormal ECG Confirmed by JAYMIE POLANCO, BARBI ([id number]), avid editor CHAD CUEVA ([id number]) on 08/13/2021 10:08:42 AM Referred By: Jason Conroy Confirmed By:BARBI COON MD
--- NOTE | 2021-08-10 11:11 | PN.HOSP_ITS ---
Subjective Subjective Follow-up on Acute STEMI: Patient was seen and examined. She complains Objective Data Objective Data Vital Signs: Vital Signs Temp Pulse Resp BP Pulse Ox 97.9 F 83 17 159/86 H 100 08/10/21 03:55 08/10/21 07:34 08/10/21 03:55 08/10/21 03:55 08/10/21 03:55 Oxygen Flow Rate (L/min) 15 Oxygen Delivery Method Room Air Weight: 83.1 kg Body Mass Index (BMI) 29.2 Intake & Output: Intake and Output for Last 24 Hours 08/08/21 08/09/21 08/10/21 23:59 23:59 23:59 Intake Total 1815.98 / 1894.18 1882.64 / 1882.64 220 / 220 Output Total 3775 / 4225 750 / 750 Balance -1959.02 / -2330.82 1132.64 / 1132.64 220 / 220 Lab / Micro Data Result Diagrams: 08/10/21 06:07 08/10/21 06:07 Labs: Laboratory Results - last 24 hr 08/10/21 06:07: WBC 15.7 H, RBC 3.41 L, Hgb 10.6 L, Hct 33.1 L, MCV 97.1, MCH 31.1, MCHC 32.0, RDW Std Deviation 47.6 H, RDW Coeff of Eboni 13.3, Plt Count 356, MPV 9.7, Immature Gran % (Auto) 0.800, Neut % (Auto) 77.1 H, Lymph % (Auto) 13.4 L, [place] % (Auto) 7.4, Eos % (Auto) 1.0, Baso % (Auto) 0.3, Absolute Neuts (auto) 12.1 H, Absolute Lymphs (auto) 2.11, Nucleated RBC % 0 08/10/21 06:07: Sodium 136, Potassium 3.3 L, Chloride 104, Carbon Dioxide 24.0, Anion Gap 8, BUN 17, Creatinine 0.81, Estim Creat Clear Calc 59.60, Est GFR (MDRD) Af Amer 88, Est GFR (MDRD) Non-Af 73, BUN/Creatinine Ratio 21.0 H, Glucose 84, Calcium 8.2 L, Total Bilirubin 0.80, AST 30, ALT 36, Alkaline Phosphatase 64, Total Protein 6.2 L, Albumin 2.2 L, Globulin 4.0, Albumin/Globulin Ratio 0.6 L 08/10/21 06:07: Magnesium 1.9 Micro: Microbiology 08/08/21 04:53 Sputum, Tracheal Aspirate Gram Stain - Final 08/08/21 04:53 Sputum, Tracheal Aspirate Respiratory Culture - Final Mixed normal respiratory tatiana. No Streptococcus pneumoniae, beta-hemolytic Streptococcus or Staphylococcus aureus isolated. 08/08/21 06:50 Nasal Secretion SARS-CoV-2 Antigen (Rapid) - Final Physical Exam Narrative Physical exam: General: Alert, Oriented x3, Cooperative, No apparent distress, Well developed, off oxygen HEENT: Atraumatic Oral: Moist Mucosa Neck: Supple Lungs: Clear to auscultation Cardiovascular: HS I+II, regular, no murmurs Abdomen: Bowel Sounds Present, Soft, Non Tender Extremities: No edema Assessment & Plan Assessment/Plan (1) Acute respiratory failure with hypoxia: (2) Hypertensive emergency: (3) Pulmonary edema: QUALIFIERS: Chronicity: acute Qualified Code(s): J81.0 - Acute pulmonary edema (4) Non-STEMI (non-ST elevated myocardial infarction): PLAN: 1. Acute hypoxic respiratory failure secondary to acute pulmonary edema, resolved Extubated today 08/09/21; currently on room air Continue with breathing treatments as needed Pulmonology following 2. Acute pulmonary edema, 2D echo shows EF of 40 to 45%, resolved Patient has allergy to lisinopril; will monitor for now Will start on Lasix 20mg BID 3. Acute non-STEMI, presented initially with concern for acute STEMI with ST segment elevation in the anterior lateral leads Cardiac cath on 08/08/21 showed evidence of ruptured plaque in the LAD, resultant PTCA of the side branch diagonal Improve blood flow in the LAD and side branch. She also had a stent to the RCA Continue on Aspirin, Brilinta, Coreg, atorvastatin Monitor further for allergies 4. History of multiple allergies Charges/Coding Visit Charges Inpatient E&M: 24963 Subs Hosp L2
--- NOTE | 2021-08-10 13:40 | PN.CARD_ITS ---
Subjective Subjective Patient seen in today at bedside and discussed with the nursing staff No chest pain reported today she had mild fatigue Objective Data Vital Signs: Vital Signs Temp Pulse Resp BP Pulse Ox 97.9 F 78 18 149/82 H 98 08/10/21 10:45 08/10/21 10:45 08/10/21 10:45 08/10/21 10:45 08/10/21 10:45 Oxygen Flow Rate (L/min) 15 Oxygen Delivery Method Room Air Weight: 183 lb 3.266 oz Body Mass Index (BMI) 29.2 Intake & Output: Intake and Output for Last 24 Hours 08/08/21 08/09/21 08/10/21 23:59 23:59 23:59 Intake Total 1815.98 / 1894.18 1882.64 / 1882.64 220 / 220 Output Total 3775 / 4225 750 / 750 Balance -1959.02 / -2330.82 1132.64 / 1132.64 220 / 220 Lab / Micro Data Result Diagrams: 08/10/21 06:07 08/10/21 06:07 Labs: Laboratory Results - last 24 hr 08/10/21 06:07: WBC 15.7 H, RBC 3.41 L, Hgb 10.6 L, Hct 33.1 L, MCV 97.1, MCH 31.1, MCHC 32.0, RDW Std Deviation 47.6 H, RDW Coeff of Eboni 13.3, Plt Count 356, MPV 9.7, Immature Gran % (Auto) 0.800, Neut % (Auto) 77.1 H, Lymph % (Auto) 13.4 L, [place] % (Auto) 7.4, Eos % (Auto) 1.0, Baso % (Auto) 0.3, Absolute Neuts (auto) 12.1 H, Absolute Lymphs (auto) 2.11, Nucleated RBC % 0 08/10/21 06:07: Sodium 136, Potassium 3.3 L, Chloride 104, Carbon Dioxide 24.0, Anion Gap 8, BUN 17, Creatinine 0.81, Estim Creat Clear Calc 59.60, Est GFR (MDRD) Af Amer 88, Est GFR (MDRD) Non-Af 73, BUN/Creatinine Ratio 21.0 H, Glucose 84, Calcium 8.2 L, Total Bilirubin 0.80, AST 30, ALT 36, Alkaline Phosphatase 64, Total Protein 6.2 L, Albumin 2.2 L, Globulin 4.0, Albumin/Globulin Ratio 0.6 L 08/10/21 06:07: Magnesium 1.9 Micro: Microbiology 08/08/21 04:53 Sputum, Tracheal Aspirate Gram Stain - Final 08/08/21 04:53 Sputum, Tracheal Aspirate Respiratory Culture - Final Mixed normal respiratory tatiana. No Streptococcus pneumoniae, beta-hemolytic Streptococcus or Staphylococcus aureus isolated. Cardiology Labs/Tests 08/10/21 06:07: WBC 15.7 H, RBC 3.41 L, Hgb 10.6 L, Hct 33.1 L, MCV 97.1, MCH 31.1, MCHC 32.0, Plt Count 356, MPV 9.7, Immature Gran % (Auto) 0.800, Neut % (Auto) 77.1 H, Lymph % (Auto) 13.4 L, [place] % (Auto) 7.4, Eos % (Auto) 1.0, Baso % (Auto) 0.3, Absolute Neuts (auto) 12.1 H, Nucleated RBC % 0 08/10/21 06:07: Sodium 136, Potassium 3.3 L, Chloride 104, Carbon Dioxide 24.0, Anion Gap 8, BUN 17, Creatinine 0.81, Est GFR (MDRD) Af Amer 88, Est GFR (MDRD) Non-Af 73, BUN/Creatinine Ratio 21.0 H, Glucose 84, Calcium 8.2 L, Total Bilirubin 0.80 08/10/21 06:07: Magnesium 1.9 Rhythm: Normal sinus rhythm Physical Exam Narrative Patient alert and orientated x3 Cardiac examination; Cardiac telemetry reveals normal sinus S2 regular, no systolic or diastolic murmur, no pericardial rub or gallop. Chest examination; Normal auscultation bilaterally Abdomen, soft, not distended Examination lower extremity; No lower extremity edema Assessment & Plan Assessment/Plan (1) Hypertensive emergency: (2) Pulmonary edema: QUALIFIERS: Chronicity: acute Qualified Code(s): J81.0 - Acute pulmonary edema (3) Non-STEMI (non-ST elevated myocardial infarction): PLAN: 76-year-old patient presented with symptoms of shortness of breath Which progressively worse for 1 week She has significant change in the EKG anterolateral ST elevation however she does not have a symptoms of chest pain Patient also had hypertensive emergency. Echo clear wall motion abnormality in the LAD distribution with anteroapical and distal septal hypokinesia with e jection fraction in the range of 40-45% Underwent successful PCI and stenting of the LAD with PTCA of the sidebranch diagonal and PCI of the RCA. Will need PCI and stent of the left circumflex/OM1 OM 2 as outpatient. Cardiac recommendation plan; 1. I reviewed and discussed the current medication will continue on DAPT with Brilinta/aspirin for 1 year 2. Continue rest of her cardiac medication 3. Patient stable clinically blood pressure is well controlled The cardiac telemetry showed normal sinus with no evidence of nonsustained medical tachycardia 4. She been on Lasix and to continue to monitor electrolytes and serum potassium 5. From cardiac standpoint she will need further PCI of the left circumflex artery which can be set up as an outpatient 6. Patient will be evaluated with the social service coordinator/case loader operator 7. We will follow-up on discharge with the cold rolling supervisor Dr. Coates for continuation of cardiac care plan and to set up for phase 1 cardiac rehab.
[2021-08-10] MEDS: Atorvastatin Calcium 20 MG Tablet PO (21:05)
[2021-08-11] VITALS (10 sets, daily range): BP systolic 129–153; BP diastolic 86–96; PULSE 75–98; RESP 16–20; TEMP 36.5–37; O2SAT 97–100
--- NOTE | 2021-08-11 05:23 | NURSING ---
Pt refused daily weight this morning. Pt stated that her back hurt too bad to lay the head of the bed down.
[2021-08-11 06:16] LABS: Absolute Lymphocyte Count 1.95 X10^3/uL (0.83-4.51); Absolute Neutrophil Count 11.1 X10^3/uL (2.0-7.7); Basophil# 0.06 X10^3/uL; Basophil% 0.4 % (0-1); Eosinophil# 0.28 X10^3/uL; Eosinophils% 1.9 % (0-5); Hematocrit 34.1 % (37-47); Lymphocyte # 1.95 X10^3/ul (0.83-4.51); Lymphocyte % 13.4 % (19-41); Mean Corp Hgb Conc 32.3 g/dL (32-36); Mean Corpuscular Hgb 31.6 pg (27.0-32.0); Mean Platelet Vol. 10.1 fl (6.2-12.0); Monocyte# 1.14 X10^3/uL; Monocyte% 7.8 % (0-10); NRBC Flagged by Analyzer 0 % (0-5); Neutrophil # 11.05 X10^3/uL (2.7-7.7); Neutrophil % 75.7 % (47-70); Platelet Count 405 K/mm3 (150-450); RBC Distribution Width CV 13.2 % (11.6-14.6); Red Blood Count 3.48 M/mm3 (4.2-5.4); White Blood Count 14.6 K/mm3 (4.4-11.0)
[2021-08-11 06:30] LABS: ALB/GLOB Ratio 0.6 RATIO (0.9-2.4); AST(SGOT) 31 U/L (15-37); Alanine Aminotransfer ALT/SGPT 41 U/L (13-56); Albumin, Serum 2.5 g/dL (3.2-5.0); Alkaline Phosphatase 66 U/L (45-117); Anion Gap 9 (5-15); BUN 15 mg/dL (7-18); BUN/Creat Ratio 16.5 RATIO (10-20); Calcium,Total 8.6 mg/dL (8.5-10.1); Chloride 105 mmol/L (98-107); Creatinine, Serum 0.91 mg/dL (0.55-1.02); EST Glomerular Filtration Rate 64 mL/min (>60); Est Glom Filt Rate - Afr Amer 78 mL/min (>60); Estimated Creatinine Clearance 53.05 ml/min; Globulin 4.3 g/dL (2.2-4.2); Glucose 78 mg/dL (74-106); Potassium 3.3 mmol/L (3.5-5.1); Protein, Total 6.8 g/dL (6.4-8.2); Sodium Level 136 mmol/L (136-145)
[2021-08-11] MEDS: CROMOLYN SODIUM 20 MG/ML 200 MG PO ×4 (06:57→20:57)
[2021-08-11] MEDS: predniSONE 5 MG Tablet PO (08:39)
[2021-08-11] MEDS: Aspirin E.C. 81 MG Tablet PO (08:39)
[2021-08-11] MEDS: TICAGRELOR 90 MG TABLET PO ×2 (08:39→22:21)
[2021-08-11] MEDS: Famotidine 20 MG Tablet GT ×2 (08:40→22:21)
[2021-08-11] MEDS: Carvedilol 3.125 MG TABLET PO ×2 (08:40→22:21)
--- NOTE | 2021-08-11 10:00 | EKG12_ITS ---
Test Reason : SOB Blood Pressure : / mmHG Vent. Rate : 099 BPM Atrial Rate : 099 BPM P-R Int : 150 ms QRS Dur : 076 ms QT Int : 336 ms P-R-T Axes : 002 -34 031 degrees QTc Int : 431 ms Sinus rhythm with Premature atrial complexes Left axis deviation Anterolateral infarct , possibly acute ACUTE [place] / STEMI Abnormal ECG No previous ECGs available Confirmed by JAYMIE POLANCO, BARBI ([id number]), tape editor HCAD CUEVA ([id number]) on 08/13/2021 1:36:55 PM Referred By: Jason Conroy Confirmed By:BARBI COON MD
[2021-08-11] MEDS: Potassium Chloride 10mEq/100mL 10 MEQ/100 ML IV.SOLN. 100 MEQ IV BOLUS ×2 (11:16→13:18)
--- NOTE | 2021-08-11 13:16 | PCM.PN.HOSP ---
Subjective Subjective Follow-up on acute STEMI: Patient was seen and examined. She feels much improved. She will like home health and possibly pay for private nursing at home. She has been refusing to take potassium or Lasix for her shortness of breath. She denied any more shortness of breath. No other acute events overnight. Objective Data Objective Data Vital Signs: Vital Signs Temp Pulse Resp BP Pulse Ox 97.7 F L 76 20 H 129/89 H 99 08/11/21 11:15 08/11/21 11:15 08/11/21 11:15 08/11/21 11:15 08/11/21 11:15 Oxygen Flow Rate (L/min) 15 Oxygen Delivery Method Room Air Weight: 83.1 kg Body Mass Index (BMI) 29.2 Intake & Output: Intake and Output for Last 24 Hours 08/09/21 08/10/21 08/11/21 23:59 23:59 23:59 Intake Total 1882.64 / 1882.64 1420 / 1420 200 / 200 Output Total 750 / 750 3 / 3 Balance 1132.64 / 1132.64 1420 / 1417 197 / 197 Lab / Micro Data Result Diagrams: 08/11/21 05:30 08/11/21 05:30 Labs: Laboratory Results - last 24 hr 08/11/21 05:30: WBC 14.6 H, RBC 3.48 L, Hgb 11.0 L, Hct 34.1 L, MCV 98.0, MCH 31.6, MCHC 32.3, RDW Std Deviation 47.0 H, RDW Coeff of Eboni 13.2, Plt Count 405, MPV 10.1, Immature Gran % (Auto) 0.800, Neut % (Auto) 75.7 H, Lymph % (Auto) 13.4 L, [place] % (Auto) 7.8, Eos % (Auto) 1.9, Baso % (Auto) 0.4, Absolute Neuts (auto) 11.1 H, Absolute Lymphs (auto) 1.95, Nucleated RBC % 0 08/11/21 05:30: Sodium 136, Potassium 3.3 L, Chloride 105, Carbon Dioxide 22.0, Anion Gap 9, BUN 15, Creatinine 0.91, Estim Creat Clear Calc 53.05, Est GFR (MDRD) Af Amer 78, Est GFR (MDRD) Non-Af 64, BUN/Creatinine Ratio 16.5, Glucose 78, Calcium 8.6, Total Bilirubin 0.70, AST 31, ALT 41, Alkaline Phosphatase 66, Total Protein 6.8, Albumin 2.5 L, Globulin 4.3 H, Albumin/Globulin Ratio 0.6 L Micro: Microbiology 08/08/21 04:53 Sputum, Tracheal Aspirate Gram Stain - Final 08/08/21 04:53 Sputum, Tracheal Aspirate Respiratory Culture - Final Mixed normal respiratory tatiana. No Streptococcus pneumoniae, beta-hemolytic Streptococcus or Staphylococcus aureus isolated. 08/08/21 06:50 Nasal Secretion SARS-CoV-2 Antigen (Rapid) - Final Physical Exam Narrative Physical exam: General: Alert, Oriented x3, Cooperative, No apparent distress, Well developed, off oxygen HEENT: Atraumatic Oral: Moist Mucosa Neck: Supple Lungs: Clear to auscultation Cardiovascular: HS I+II, regular, no murmurs Abdomen: Bowel Sounds Present, Soft, Non Tender Extremities: No edema Assessment & Plan Assessment/Plan (1) Acute respiratory failure with hypoxia: (2) Hypertensive emergency: (3) Pulmonary edema: QUALIFIERS: Chronicity: acute Qualified Code(s): J81.0 - Acute pulmonary edema (4) Non-STEMI (non-ST elevated myocardial infarction): PLAN: 1. Acute hypoxic respiratory failure secondary to acute pulmonary edema, resolved Remains on room air. Extubated on 08/09/21 Continue with breathing treatments as needed Pulmonology following 2. Acute pulmonary edema, 2D echo shows EF of 40 to 45%, resolved Patient has allergy to lisinopril; will monitor for now Patient has been refusing Lasix started yesterday; will continue to monitor off Lasix 3. Acute non-STEMI, presented initially with concern for acute STEMI with ST segment elevation in the anterior lateral leads Cardiac cath on 08/08/21 showed evidence of ruptured plaque in the LAD, resultant PTCA of the side branch diagonal Improve blood flow in the LAD and side branch. She also had a stent to the RCA Continue on Aspirin, Brilinta, Coreg, atorvastatin Monitor further for allergies 4. Hypokalemia, replaced, patient refused oral potassium; she later on reluctantly agreed to IV potassium 5. History of multiple allergies, will be monitored Disposition: Patient will be discharged tomorrow with home health. She should be given resources by case management for private pay nursing. Charges/Coding Visit Charges Inpatient E&M: 60489 Subs Hosp L2
--- NOTE | 2021-08-11 13:56 | PCM.PN.CARD ---
Subjective Subjective Patient seen evaluated today at bedside No symptoms reported and no events from last night Objective Data Vital Signs: Vital Signs Temp Pulse Resp BP Pulse Ox 97.7 F L 76 20 H 129/89 H 99 08/11/21 11:15 08/11/21 11:15 08/11/21 11:15 08/11/21 11:15 08/11/21 11:15 Oxygen Flow Rate (L/min) 15 Oxygen Delivery Method Room Air Weight: 183 lb 3.266 oz Body Mass Index (BMI) 29.2 Intake & Output: Intake and Output for Last 24 Hours 08/09/21 08/10/21 08/11/21 23:59 23:59 23:59 Intake Total 1882.64 / 1882.64 1420 / 1420 1020 / 1020 Output Total 750 / 750 Balance 1132.64 / 1132.64 1420 / 1417 1017 / 1017 Lab / Micro Data Result Diagrams: 08/11/21 05:30 08/11/21 05:30 Labs: Laboratory Results - last 24 hr 08/11/21 05:30: WBC 14.6 H, RBC 3.48 L, Hgb 11.0 L, Hct 34.1 L, MCV 98.0, MCH 31.6, MCHC 32.3, RDW Std Deviation 47.0 H, RDW Coeff of Eboni 13.2, Plt Count 405, MPV 10.1, Immature Gran % (Auto) 0.800, Neut % (Auto) 75.7 H, Lymph % (Auto) 13.4 L, [place] % (Auto) 7.8, Eos % (Auto) 1.9, Baso % (Auto) 0.4, Absolute Neuts (auto) 11.1 H, Absolute Lymphs (auto) 1.95, Nucleated RBC % 0 08/11/21 05:30: Sodium 136, Potassium 3.3 L, Chloride 105, Carbon Dioxide 22.0, Anion Gap 9, BUN 15, Creatinine 0.91, Estim Creat Clear Calc 53.05, Est GFR (MDRD) Af Amer 78, Est GFR (MDRD) Non-Af 64, BUN/Creatinine Ratio 16.5, Glucose 78, Calcium 8.6, Total Bilirubin 0.70, AST 31, ALT 41, Alkaline Phosphatase 66, Total Protein 6.8, Albumin 2.5 L, Globulin 4.3 H, Albumin/Globulin Ratio 0.6 L Micro: Microbiology 08/08/21 04:53 Sputum, Tracheal Aspirate Gram Stain - Final 08/08/21 04:53 Sputum, Tracheal Aspirate Respiratory Culture - Final Mixed normal respiratory tatiana. No Streptococcus pneumoniae, beta-hemolytic Streptococcus or Staphylococcus aureus isolated. Cardiology Labs/Tests 08/11/21 05:30: WBC 14.6 H, RBC 3.48 L, Hgb 11.0 L, Hct 34.1 L, MCV 98.0, MCH 31.6, MCHC 32.3, Plt Count 405, MPV 10.1, Immature Gran % (Auto) 0.800, Neut % (Auto) 75.7 H, Lymph % (Auto) 13.4 L, [place] % (Auto) 7.8, Eos % (Auto) 1.9, Baso % (Auto) 0.4, Absolute Neuts (auto) 11.1 H, Nucleated RBC % 0 08/11/21 05:30: Sodium 136, Potassium 3.3 L, Chloride 105, Carbon Dioxide 22.0, Anion Gap 9, BUN 15, Creatinine 0.91, Est GFR (MDRD) Af Amer 78, Est GFR (MDRD) Non-Af 64, BUN/Creatinine Ratio 16.5, Glucose 78, Calcium 8.6, Total Bilirubin 0.70 Rhythm: Normal sinus rhythm ECHO: LV systolic dysfunction ejection fraction 40-45% Cardiac Cath: PCI: Successful PCI of the LAD, PTCA of sidebranch D1 and PCI and stent of the mid RCA Physical Exam Narrative Patient alert orientated x3 No symptoms of chest pain Cardiac examination; S1-S2 normal, no murmur no systolic or diastolic murmur, no pericardial rub Chest examination clear to auscultation bilateral Abdomen by inspection not distended. Examination lower extremity no clubbing no cyanosis no lower extremity edema. Assessment & Plan Assessment/Plan (1) Hypertension: (2) Hypertensive emergency: (3) Acute respiratory failure with hypoxia: (4) Non-STEMI (non-ST elevated myocardial infarction): PLAN: Feeling much better no symptoms of chest pain sitting out in a chair comfortable I discussed in detail cardiac care plan and recommendation with the nursing staff 1. Patient with anterolateral apical OR with the PCI of the LAD, PTCA of diagonal branch and PCI and stent of RCA We will continue DAPT with Brilinta low-dose aspirin 2. Patient has been on beta-josh carvedilol she is reluctant to start any ARB and she had a history of FARAZ inhibitor 3. Her blood pressure is better controlled on presentation she had a systolic blood pressure significant elevated more than 240 mmHg with severe pulmonary edema. 4. She has a lesion in the left circumflex artery which involves the proximal circumflex in addition to OM1 OM 2 and this can be set up for elective PCI as an outpatient 3 to 4 weeks post discharge 5. Patient is set up for cardiac rehab program 6. Primary accounts officer, Dr. Coates will follow up this patient for continuation of cardiac care as an outpatient.
[2021-08-11] MEDS: Potassium Chloride 10mEq/100mL 10 MEQ/100 ML IV.SOLN. 50 MEQ IV BOLUS ×2 (15:33→18:19)
[2021-08-11] MEDS: Atorvastatin Calcium 20 MG Tablet PO (22:22)
--- NOTE | 2021-08-12 00:43 | PCS.PANDOC ---
PANDEMIC DOCUMENTATION INITIATED: Date: 04/01/2021 Time: 190
[2021-08-12 03:00] VITALS: BP 160/86; PULSE 78; PULSE 80; RESP 18; TEMP 36.9; O2SAT 99
[2021-08-12 03:12] VITALS: O2SAT 99
[2021-08-12] MEDS: CROMOLYN SODIUM 20 MG/ML 200 MG PO ×2 (06:59→11:28)
[2021-08-12 07:00] VITALS: PULSE 86
[2021-08-12 07:06] LABS: Absolute Lymphocyte Count 1.78 X10^3/uL (0.83-4.51); Absolute Neutrophil Count 8.8 X10^3/uL (2.0-7.7); Basophil# 0.06 X10^3/uL; Basophil% 0.5 % (0-1); Eosinophil# 0.36 X10^3/uL; Eosinophils% 2.9 % (0-5); Hemoglobin 10.5 g/dL (12.0-15.0); Lymphocyte # 1.78 X10^3/ul (0.83-4.51); Lymphocyte % 14.5 % (19-41); Mean Corp Hgb Conc 32.8 g/dL (32-36); Mean Corpuscular Hgb 31.5 pg (27.0-32.0); Mean Corpuscular Volume 96.1 fL (81-99); Mean Platelet Vol. 9.7 fl (6.2-12.0); Monocyte# 1.11 X10^3/uL; NRBC Flagged by Analyzer 0 % (0-5); Neutrophil # 8.83 X10^3/uL (2.7-7.7); Neutrophil % 71.9 % (47-70); Platelet Count 372 K/mm3 (150-450); RBC Distribution Width CV 13.2 % (11.6-14.6); RBC Distribution Width SD 46.6 fl (35.1-43.9); Red Blood Count 3.33 M/mm3 (4.2-5.4); White Blood Count 12.3 K/mm3 (4.4-11.0)
[2021-08-12 07:18] VITALS: O2SAT 96
[2021-08-12 07:32] LABS: ALB/GLOB Ratio 0.6 RATIO (0.9-2.4); AST(SGOT) 21 U/L (15-37); Alanine Aminotransfer ALT/SGPT 37 U/L (13-56); Albumin, Serum 2.3 g/dL (3.2-5.0); Alkaline Phosphatase 59 U/L (45-117); Anion Gap 10 (5-15); BUN 17 mg/dL (7-18); BUN/Creat Ratio 18.5 RATIO (10-20); Calcium,Total 8.5 mg/dL (8.5-10.1); Chloride 106 mmol/L (98-107); Creatinine, Serum 0.92 mg/dL (0.55-1.02); EST Glomerular Filtration Rate 63 mL/min (>60); Est Glom Filt Rate - Afr Amer 77 mL/min (>60); Estimated Creatinine Clearance 52.48 ml/min; Glucose 81 mg/dL (74-106); Potassium 3.6 mmol/L (3.5-5.1); Protein, Total 6.3 g/dL (6.4-8.2); Sodium Level 138 mmol/L (136-145)
--- NOTE | 2021-08-12 07:49 | PN.CARD_ITS ---
Subjective Subjective Patient seen and evaluated. Appears to be doing quite well. Objective Data Vital Signs: Vital Signs Temp Pulse Resp BP Pulse Ox 98.5 F 86 18 160/86 H 99 08/12/21 03:00 08/12/21 07:00 08/12/21 03:00 08/12/21 03:00 08/12/21 03:12 Oxygen Flow Rate (L/min) 15 Oxygen Delivery Method Room Air Weight: 187 lb 2.759 oz Body Mass Index (BMI) 29.2 Intake & Output: Intake and Output for Last 24 Hours 08/10/21 08/11/21 08/12/21 23:59 23:59 23:59 Intake Total 1420 / 1420 1800.00 / 1800.00 Output Total 3 / 3 Balance 1420 / 1417 1797.00 / 1797.00 Lab / Micro Data Result Diagrams: 08/12/21 06:15 08/12/21 06:15 Labs: Laboratory Results - last 24 hr 08/12/21 06:15: WBC 12.3 H, RBC 3.33 L, Hgb 10.5 L, Hct 32.0 L, MCV 96.1, MCH 31.5, MCHC 32.8, RDW Std Deviation 46.6 H, RDW Coeff of Eboni 13.2, Plt Count 372, MPV 9.7, Immature Gran % (Auto) 1.200 H, Neut % (Auto) 71.9 H, Lymph % (Auto) 14.5 L, [place] % (Auto) 9.0, Eos % (Auto) 2.9, Baso % (Auto) 0.5, Absolute Neuts (auto) 8.8 H, Absolute Lymphs (auto) 1.78, Nucleated RBC % 0 08/12/21 06:15: Sodium 138, Potassium 3.6, Chloride 106, Carbon Dioxide 22.0, Anion Gap 10, BUN 17, Creatinine 0.92, Estim Creat Clear Calc 52.48, Est GFR (MDRD) Af Amer 77, Est GFR (MDRD) Non-Af 63, BUN/Creatinine Ratio 18.5, Glucose 81, Calcium 8.5, Total Bilirubin 0.50, AST 21, ALT 37, Alkaline Phosphatase 59, Total Protein 6.3 L, Albumin 2.3 L, Globulin 4.0, Albumin/Globulin Ratio 0.6 L Cardiology Labs/Tests 08/12/21 06:15: WBC 12.3 H, RBC 3.33 L, Hgb 10.5 L, Hct 32.0 L, MCV 96.1, MCH 31.5, MCHC 32.8, Plt Count 372, MPV 9.7, Immature Gran % (Auto) 1.200 H, Neut % (Auto) 71.9 H, Lymph % (Auto) 14.5 L, [place] % (Auto) 9.0, Eos % (Auto) 2.9, Baso % (Auto) 0.5, Absolute Neuts (auto) 8.8 H, Nucleated RBC % 0 08/12/21 06:15: Sodium 138, Potassium 3.6, Chloride 106, Carbon Dioxide 22.0, Anion Gap 10, BUN 17, Creatinine 0.92, Est GFR (MDRD) Af Amer 77, Est GFR (MDRD) Non-Af 63, BUN/Creatinine Ratio 18.5, Glucose 81, Calcium 8.5, Total Bilirubin 0.50 Rhythm: EKG: ECHO: Stress Test: Cardiac Cath: PCI: CT Surgery: Holter monitor: EPS: PPM: CXR: Chest CT Scan: Physical Exam Narrative Patient alert orientated x3 No symptoms of chest pain Cardiac examination; S1-S2 normal, no murmur no systolic or diastolic murmur, no pericardial rub Chest examination clear to auscultation bilateral Abdomen by inspection not distended. Examination lower extremity no clubbing no cyanosis no lower extremity edema. Const alert, oriented x3 and no apparent distress General Appearance: cooperative HEENT hearing grossly normal bilaterally Head and Scalp: atraumatic Eyes EOMs intact bilaterally Neck General: normal visual inspection Chest inspection of chest normal and palpation of chest normal Resp normal respiratory effort Auscultation: clear to auscultation bilaterally Cardio regular rate, regular rhythm, S1 normal heart sound and S2 normal heart sound Jugular Venous Distention: JVD GI normal to inspection, nondistended, normoactive bowel sounds Extremity normal capillary refill and no pedal edema Peripheral Pulses: Yes pulses 2+ throughout and femoral pulses present Skin no rashes or lesions noted Neuro oriented x3 and CN's II-XII intact bilaterally Psych Appearance: grossly normal and appropriate Assessment & Plan Assessment/Plan (1) Hypertension: PLAN: Patient continues to have her blood pressure optimized with her curr ent medications. We will continue with the carvedilol We will need to add an FARAZ or ARB. Patient is hesitant because of previous experience. This appears to be an allergy (2) Acute respiratory failure with hypoxia: PLAN: Patient presented with respiratory failure secondary to coronary artery disease. She has been diuresed and appears to be doing quite well at this time. (3) Non-STEMI (non-ST elevated myocardial infarction): PLAN: 1. Patient with anterolateral apical VT with the PCI of the LAD, PTCA of estefania gonal branch and PCI and stent of RCA We will continue DAPT with Brilinta low-dose aspirin, ejection fraction appears to be approximately 45% 2. Patient has been on beta-josh carvedilol she is reluctant to start any ARB and she had a history of FARAZ inhibitor 3. Her blood pressure is better controlled on presentation she had a systolic blood pressure significant elevated more than 240 mmHg with severe pulmonary edema. 4. She has a lesion in the left circumflex artery which involves the proximal circumflex in addition to OM1 OM 2 and this can be set up for elective PCI as an outpatient 3 to 4 weeks post discharge 5. Patient is set up for cardiac rehab program 6. Primary sports coordinator, Dr. Coates will follow up this patient for continuation of cardiac care as an outpatient.
[2021-08-12 08:14] VITALS: BP 155/83; PULSE 79; RESP 18; TEMP 36.6; O2SAT 100
[2021-08-12] MEDS: Carvedilol 3.125 MG TABLET PO (08:25)
[2021-08-12] MEDS: predniSONE 5 MG Tablet PO (08:25)
[2021-08-12] MEDS: TICAGRELOR 90 MG TABLET PO (08:25)
[2021-08-12] MEDS: Aspirin E.C. 81 MG Tablet PO (08:25)
[2021-08-12] MEDS: Famotidine 20 MG Tablet GT (08:25)
[2021-08-12 08:27] VITALS: O2SAT 100
--- NOTE | 2021-08-12 10:40 | CASEMGMT ---
Addendum entered by Marlyn Henderson 08/12/21 11:50: Pt aware that Brilinta coupon applied and to discuss with cardiology if there are concerns with co-pay for next month, voices understanding. Pt then asks when her ride will be here. Pt states that she was told that the hospital would provide a ride home for her. Divya, [employer] secretary, updated that [facility] would like [facility] her home, voices understanding. Pt aware that she will need to call private duty to get aide set up, voices understanding. Pt voices no further questions/concerns/needs. Muriel RN JASON Addendum entered by Marlyn Henderson 08/12/21 11:33: Call from Monique at [facility] private duty and she states she does not have an aide available at this time but may by the end of the week. Pt updated, voices understanding. Pt has private duty list. Muriel GRANT CM Addendum entered by Marlyn Henderson 08/12/21 11:23: Brilinta e-scribed to [facility] retail pharmacy and call to pharmacy to update on script, Brilinta card to be applied and pharmacy to call this RN CM with co-pay cost. CM to follow. Muriel GRANT CM Original Note: This RN CM received message that pt interested in HHC at discharge. This RN CM to room with list of in-network HHC companies and pt declines need for skilled services, ie SN, PT/OT. Pt states just needs an aide to complete laundry, dishes, meals, etc. Advised pt that would be feed research aide, voices understanding and list provided. Pt states had [facility] private duty in the past and would like again. Message left with Monique at [facility] private duty in regards to pt and need for aide. This RN CM awaiting call back. Pt states that her son, grandson, and treasury specialist all have COVID and cannot assist her at this time. CM to follow. Muriel GRANT CM
--- NOTE | 2021-08-12 11:08 | PCM.DC ---
Discharge Instructions Diet Discharge Diet: No restrictions Activity Discharge Activity: Return to Normal Activity Weight Bearing Status: Weight bearing as tolerated Dressing / Incision Call your doctor if you observe: Fever of 101 or Higher, Numbness or Tingling, Shortness of breath, Dizziness, Chest pain, Increased palpitations (irregular heartbeat) and Calf discomfort Follow Up Care Please Follow Up With: Primary care provider When: Within the next two weeks. Test Results: Test results from this visit will be discussed in further detail at your follow-up appointment, if applicable. Discharge Plan Admission Admit Date/Time: 08/08/21 02:53 Attending Provider: Bautista Novak Primary Care Provider: Jennie Turk Consulting Providers: Jason Conroy ; Fabiano Sosa Discharge Orders/Prescriptions Prescriptions: New aspirin 81 mg tablet,chewable 81 mg PO DAILY Qty: 30 RF: 0 Brilinta 90 mg tablet 90 mg PO BID Qty: 60 RF: 0 Continued prednisone 10 mg tablet 5 mg PO DAILY RF: 0 ciprofloxacin HCl 500 mg tablet 500 mg PO BID PRNRF: 0 clindamycin HCl 150 mg capsule 300 mg PO 4X/DAY PRNRF: 0 acetaminophen [Tylenol] 325 mg capsule 325 mg PO ONCE PRNRF: 0 lithium aspartate 5 mg capsule 5 mg PO DAILY PRNRF: 0 prednisolone acetate 0.12 % drops,suspension 1 drp ophthalmic (eye) .qod RF: 0 olopatadine [Pataday Once Daily Relief] 0.2 % drops 1 drp ophthalmic (eye) DAILY RF: 0 conjugated estrogens [Premarin] 0.625 MG tablet 0.625 mg PO DAILY RF: 0 cetirizine [Zyrtec] 10 MG capsule 10 mg PO DAILY RF: 0 Gastrocrom 200 mg PO 4X/DAY RF: 0 triamterene-hydrochlorothiazid 37.5-25 mg capsule 1 cap PO DAILY PRNRF: 0 chlordiazepoxide-clidinium 2.5 MG capsule 2.5 mg PO DAILY PRN (Reason: Irritable Bowel Syndrome) RF: 0 nitrofurantoin macrocrystal 50 mg capsule 1 tab PO DAILY RF: 0 clindamycin HCl 150 MG capsule 300 mg PO 4X/DAY Qty: 80 RF: 0 Referrals / Follow Up: Jennie Turk MD [Primary Care Provider] - Within 2 Weeks Disposition Disposition (needs filled in before D/C Order can be placed): Home, Self Care
--- NOTE | 2021-08-12 11:56 | PHA.DC.MC ---
Addendum entered and electronically signed by Chen Ferraro 08/12/21 11:58: This [facility] spoke to SAVANA Morley, patient started on carvedilol and atorvastatin in hospital but they were not continued on discharge. Coy will start for home. Original Note: Pharmacy Service has performed discharge medication reconciliation and counseling for this patient. 1. ASPIRIN 81MG PO DAILY 2. ATORVASTATIN 20MG PO QHS 3. CARVEDILOL 3.125MG PO BID 4. TICAGRELOR 90MG PO BID The patient's discharge medication list was reviewed for discrepancies and discrepancies were resolved. Home Medications Premarin 0.625 mg PO DAILY 02/12/14 Zyrtec 10 mg PO DAILY 02/12/14 Gastrocrom 200 mg PO 4X/DAY 01/27/19 prednisone 10 mg tablet 5 mg PO DAILY tab 01/27/19 chlordiazepoxide-clidinium 2.5 mg PO DAILY PRN 02/16/19 nitrofurantoin macrocrystal 1 tab PO DAILY 04/02/20 acetaminophen 325 mg capsule 325 mg PO ONCE PRN 01/02/21 ciprofloxacin HCl 500 mg tablet 500 mg PO BID PRN tab 01/02/21 clindamycin HCl 150 mg capsule 300 mg PO 4X/DAY PRN cap 01/02/21 lithium aspartate 5 mg capsule 5 mg PO DAILY PRN 01/02/21 olopatadine 0.2 % eye drops 1 drp OPHTHALMIC (EYE) DAILY 01/02/21 prednisolone acetate 0.12 % eye drops,suspension 1 drp OPHTHALMIC (EYE) .qod ml 01/02/21 triamterene 37.5 mg-hydrochlorothiazide 25 mg capsule 1 cap PO DAILY PRN 01/02/21 aspirin 81 mg PO DAILY #30 tab 08/12/21 atorvastatin [Lipitor] 20 mg PO QHS #30 tab 08/12/21 carvedilol [Coreg] 3.125 mg PO BID #60 tab 08/12/21 clindamycin HCl 300 mg PO 4X/DAY 08/12/21 ticagrelor [Brilinta] 90 mg PO BID #60 tab 08/12/21 The patient was counseled on the following discharge medications and changes in medications for homegoing were reviewed. The Reason for Use, instructions for use, and potential side effects were reviewed for all new medications. The patient's questions regarding all of their medications were answered. The patient was able to verbally demonstrate an understanding of their discharge medications.
--- NOTE | 2021-08-12 14:17 | PCM.DC.SUM ---
Documented by User: Coy SAWANT 08/12/21 14:25 Providers Date of Admission: 08/08/21 Primary Care Physician: Dr. Jennie Turk MD Consultations 08/08/21 04:31 Consult: Doubler Helper / Pulmonary Medicine Routine Consulting Provider: Fabiano Sosa Reason for Consult: Vent management; pulmonary edema EMERGENT Consult: No MD Notified: Yes Date Notified: 08/08/21 Time Notified: 04:31 Method of Notification: Text 08/08/21 05:37 Consult: Cardiology Routine Consulting Provider: Jason Conroy Reason for Consult: STEMI EMERGENT Consult: Yes MD Notified: Yes Date Notified: 08/08/21 Time Notified: 03:20 Method of Notification: Verbal Method of Consult:: In-Person Reason For Visit: STEMI Diagnosis Discharge Diagnosis (1) Hypertension: Status: Chronic Code(s): I10 - Essential (primary) hypertension (2) Acute respiratory failure with hypoxia: Status: Acute Code(s): J96.01 - Acute respiratory failure with hypoxia (3) Non-STEMI (non-ST elevated myocardial infarction): Status: Acute Code(s): I21.4 - Non-ST elevation (NSTEMI) myocardial infarction Medications at Discharge Home Medications Premarin 0.625 mg PO DAILY 02/12/14 Zyrtec 10 mg PO DAILY 02/12/14 Gastrocrom 200 mg PO 4X/DAY 01/27/19 prednisone 10 mg tablet 5 mg PO DAILY tab 01/27/19 chlordiazepoxide-clidinium 2.5 mg PO DAILY PRN 02/16/19 nitrofurantoin macrocrystal 1 tab PO DAILY 04/02/20 acetaminophen 325 mg capsule 325 mg PO ONCE PRN 01/02/21 ciprofloxacin HCl 500 mg tablet 500 mg PO BID PRN tab 01/02/21 clindamycin HCl 150 mg capsule 300 mg PO 4X/DAY PRN cap 01/02/21 lithium aspartate 5 mg capsule 5 mg PO DAILY PRN 01/02/21 olopatadine 0.2 % eye drops 1 drp OPHTHALMIC (EYE) DAILY 01/02/21 prednisolone acetate 0.12 % eye drops,suspension 1 drp OPHTHALMIC (EYE) .qod ml 01/02/21 triamterene 37.5 mg-hydrochlorothiazide 25 mg capsule 1 cap PO DAILY PRN 01/02/21 aspirin 81 mg PO DAILY #30 tab 08/12/21 atorvastatin [Lipitor] 20 mg PO QHS #30 tab 08/12/21 carvedilol [Coreg] 3.125 mg PO BID #60 tab 08/12/21 clindamycin HCl 300 mg PO 4X/DAY 08/12/21 ticagrelor [Brilinta] 90 mg PO BID #60 tab 08/12/21 Hospital Course Procedures 2-D Echocardiogram, Cardiac catheterization and Transthoracic echo Summary of Care Provided Minutes Spent on Discharge: 35 Hospital Course: Patient is a 76-year-old female who was admitted to [facility] on 08/08/2021 for evaluation and management of acute NSTEMI with concern for STEMI. Due to acute hypoxic respiratory failure observed in the ED patient was intubated on admission and admitted to the ICU. Patient was subsequently extubated on 08/08/2021. Echocardiogram on 08/05/2021 showed evidence of ruptured plaque in the LAD, resultant PTCA of the side branch diagonal to improve blood flow in the LAD and side branch. She also had a stent to the RCA. Updated echocardiogram on 08/08 demonstrated an estimated EF of 40 to 45%, moderate LV systolic dysfunction and grade 1 diastolic dysfunction. Patient was initiated on dual antiplatelet therapy with aspirin and Brilinta, as well as initiation of statin and Coreg. Patient is to follow-up with primary care provider and Dr. Shaw within the next 2 weeks. Patient seen by Coy Morley PA-C, under the supervision of Dr. Novak. Physical Exam Narrative Patient is a 76-year-old female comfortably resting in bed, alert and orient x3. Patient reports that chest pain resolved from admission. Denies development of any new symptoms overnight. Does not appear in acute distress. Const alert, oriented x3 and no apparent distress HEENT normocephalic, head/scalp atraumatic and hearing grossly normal bilaterally Eyes PERRL, EOMs intact bilaterally and conjunctivae normal Neck no lymphadenopathy, supple and no JVD Resp normal respiratory effort, no retractions, no use of accessory muscles and clear to auscultation bilaterally Cardio regular rate, regular rhythm, no murmurs and no JVD GI normal to inspection, nondistended, normoactive bowel sounds, soft to palpation and non-tender Extremity normal to inspection, full ROM and no clubbing, cyanosis or edema Skin no rashes or lesions noted, no wounds and skin turgor normal Neuro CN's II-XII intact bilaterally Psych affect normal Weight / BMI Weight Weight: 187 lb 2.759 oz Body Mass Index (BMI) 29.2 ABG / Lab / Microbiology Data Result Diagrams: 08/12/21 06:15 08/12/21 06:15 Laboratory: Laboratory Results - last 24 hr 08/12/21 06:15: WBC 12.3 H, RBC 3.33 L, Hgb 10.5 L, Hct 32.0 L, MCV 96.1, MCH 31.5, MCHC 32.8, RDW Std Deviation 46.6 H, RDW Coeff of Eboni 13.2, Plt Count 372, MPV 9.7, Immature Gran % (Auto) 1.200 H, Neut % (Auto) 71.9 H, Lymph % (Auto) 14.5 L, [place] % (Auto) 9.0, Eos % (Auto) 2.9, Baso % (Auto) 0.5, Absolute Neuts (auto) 8.8 H, Absolute Lymphs (auto) 1.78, Nucleated RBC % 0 08/12/21 06:15: Sodium 138, Potassium 3.6, Chloride 106, Carbon Dioxide 22.0, Anion Gap 10, BUN 17, Creatinine 0.92, Estim Creat Clear Calc 52.48, Est GFR (MDRD) Af Amer 77, Est GFR (MDRD) Non-Af 63, BUN/Creatinine Ratio 18.5, Glucose 81, Calcium 8.5, Total Bilirubin 0.50, AST 21, ALT 37, Alkaline Phosphatase 59, Total Protein 6.3 L, Albumin 2.3 L, Globulin 4.0, Albumin/Globulin Ratio 0.6 L Microbiology: Microbiology 08/08/21 04:53 Sputum, Tracheal Aspirate Gram Stain - Final 08/08/21 04:53 Sputum, Tracheal Aspirate Respiratory Culture - Final Mixed normal respiratory tatiana. No Streptococcus pneumoniae, beta-hemolytic Streptococcus or Staphylococcus aureus isolated. 08/08/21 06:50 Nasal Secretion SARS-CoV-2 Antigen (Rapid) - Final D/C Instructions Discharge Diet: No restrictions Weight Bearing Status: Weight bearing as tolerated Call your doctor if you observe: Fever of 101 or Higher, Numbness or Tingling, Shortness of breath, Dizziness, Chest pain, Increased palpitations (irregular heartbeat) and Calf discomfort Please Follow Up With: Primary care provider When: Within the next two weeks. Meaningful Use Info Meaningful Use Diagnoses (Choose all that apply): AMI AMI/Post PCI/Angioplasty Aspirin given w/in 24hrs of arrival?: Yes ASA at discharge?: Yes Statins at discharge?: Yes Shaq/ARB at discharge?: Yes Beta Jamal at discharge?: Yes Done w/ Acute [place] measure.: Yes Documented LVEF (%): 45 Discharge Plan Admission Admit Date/Time: 08/08/21 02:53 Attending Provider: Bautista Novak Primary Care Provider: Jennie Turk Consulting Providers: Jason Conroy ; Fabiano Sosa Discharge Orders/Prescriptions Prescriptions: New aspirin 81 mg tablet,chewable 81 mg PO DAILY Qty: 30 RF: 0 Brilinta 90 mg tablet 90 mg PO BID Qty: 60 RF: 0 carvedilol [Coreg] 3.125 mg tablet 3.125 mg PO BID Qty: 60 RF: 0 atorvastatin [Lipitor] 20 mg tablet 20 mg PO QHS Qty: 30 RF: 0 Continued prednisone 10 mg tablet 5 mg PO DAILY RF: 0 ciprofloxacin HCl 500 mg tablet 500 mg PO BID PRN (Reason: infection) RF: 0 clindamycin HCl 150 mg capsule 300 mg PO 4X/DAY PRN (Reason: infection) RF: 0 acetaminophen [Tylenol] 325 mg capsule 325 mg PO ONCE PRN (Reason: Pain) RF: 0 lithium aspartate 5 mg capsule 5 mg PO DAILY PRN (Reason: mental health) RF: 0 prednisolone acetate 0.12 % drops,suspension 1 drp ophthalmic (eye) .qod RF: 0 olopatadine [Pataday Once Daily Relief] 0.2 % drops 1 drp ophthalmic (eye) DAILY RF: 0 Premarin 0.625 MG tablet 0.625 mg PO DAILY RF: 0 Zyrtec 10 MG capsule 10 mg PO DAILY RF: 0 Gastrocrom 200 mg PO 4X/DAY RF: 0 triamterene-hydrochlorothiazid 37.5-25 mg capsule 1 cap PO DAILY PRN (Reason: Blood Pressure) RF: 0 chlordiazepoxide-clidinium 2.5 MG capsule 2.5 mg PO DAILY PRN (Reason: Irritable Bowel Syndrome) RF: 0 nitrofurantoin macrocrystal 50 mg capsule 1 tab PO DAILY RF: 0 No Action clindamycin HCl 150 MG capsule 300 mg PO 4X/DAY RF: 0 Referrals / Follow Up: Jennie Turk MD [Primary Care Provider] - 08/26/21 1:40 pm Disposition Disposition (needs filled in before D/C Order can be placed): Home, Self Care Documented by User: Dr. Bautista Novak MD 08/12/21 14:31 Providers Date of Admission: 08/08/21 Reason For Visit: STEMI Medications at Discharge Home Medications Premarin 0.625 mg PO DAILY 02/12/14 Zyrtec 10 mg PO DAILY 02/12/14 Gastrocrom 200 mg PO 4X/DAY 01/27/19 prednisone 10 mg tablet 5 mg PO DAILY tab 01/27/19 chlordiazepoxide-clidinium 2.5 mg PO DAILY PRN 02/16/19 nitrofurantoin macrocrystal 1 tab PO DAILY 04/02/20 acetaminophen 325 mg capsule 325 mg PO ONCE PRN 01/02/21 ciprofloxacin HCl 500 mg tablet 500 mg PO BID PRN tab 01/02/21 clindamycin HCl 150 mg capsule 300 mg PO 4X/DAY PRN cap 01/02/21 lithium aspartate 5 mg capsule 5 mg PO DAILY PRN 01/02/21 olopatadine 0.2 % eye drops 1 drp OPHTHALMIC (EYE) DAILY 01/02/21 prednisolone acetate 0.12 % eye drops,suspension 1 drp OPHTHALMIC (EYE) .qod ml 01/02/21 triamterene 37.5 mg-hydrochlorothiazide 25 mg capsule 1 cap PO DAILY PRN 01/02/21 aspirin 81 mg PO DAILY #30 tab 08/12/21 atorvastatin [Lipitor] 20 mg PO QHS #30 tab 08/12/21 carvedilol [Coreg] 3.125 mg PO BID #60 tab 08/12/21 clindamycin HCl 300 mg PO 4X/DAY 08/12/21 ticagrelor [Brilinta] 90 mg PO BID #60 tab 08/12/21 Hospital Course Summary of Care Provided Minutes Spent on Discharge: 35 Hospital Course: This patient was seen in conjunction with Coy Morley PA-C. I have independently interviewed and examined the patient and reviewed pertinent historical, laboratory, and other data. Please refer to Coy Morley PA-C's note for details of this patient's presentation, findings, and recommendations. I have reviewed Coy Morley PA-C's note and concur with documented findings. In brief, patient is a 76-year-old lady admitted with acute hypoxic respiratory failure and acute non-STEMI. Was on the vent during her hospital stay. She also underwent left heart catheterization with PCI and stent to the RCA lesion as well as PTCA of a ruptured plaque in the LAD Hospital course; as documented above ABG / Lab / Microbiology Data Result Diagrams: 08/12/21 06:15 08/12/21 06:15 Discharge Plan Admission Admit Date/Time: 08/08/21 02:53 Attending Provider: Bautista Novak Primary Care Provider: Jennie Turk Consulting Providers: Jason Conroy ; Fabiano Sosa Discharge Orders/Prescriptions Prescriptions: New aspirin 81 mg tablet,chewable 81 mg PO DAILY Qty: 30 RF: 0 Brilinta 90 mg tablet 90 mg PO BID Qty: 60 RF: 0 carvedilol [Coreg] 3.125 mg tablet 3.125 mg PO BID Qty: 60 RF: 0 atorvastatin [Lipitor] 20 mg tablet 20 mg PO QHS Qty: 30 RF: 0 Continued prednisone 10 mg tablet 5 mg PO DAILY RF: 0 ciprofloxacin HCl 500 mg tablet 500 mg PO BID PRN (Reason: infection) RF: 0 clindamycin HCl 150 mg capsule 300 mg PO 4X/DAY PRN (Reason: infection) RF: 0 acetaminophen [Tylenol] 325 mg capsule 325 mg PO ONCE PRN (Reason: Pain) RF: 0 lithium aspartate 5 mg capsule 5 mg PO DAILY PRN (Reason: mental health) RF: 0 prednisolone acetate 0.12 % drops,suspension 1 drp ophthalmic (eye) .qod RF: 0 olopatadine [Pataday Once Daily Relief] 0.2 % drops 1 drp ophthalmic (eye) DAILY RF: 0 Premarin 0.625 MG tablet 0.625 mg PO DAILY RF: 0 Zyrtec 10 MG capsule 10 mg PO DAILY RF: 0 Gastrocrom 200 mg PO 4X/DAY RF: 0 triamterene-hydrochlorothiazid 37.5-25 mg capsule 1 cap PO DAILY PRN (Reason: Blood Pressure) RF: 0 chlordiazepoxide-clidinium 2.5 MG capsule 2.5 mg PO DAILY PRN (Reason: Irritable Bowel Syndrome) RF: 0 nitrofurantoin macrocrystal 50 mg capsule 1 tab PO DAILY RF: 0 No Action clindamycin HCl 150 MG capsule 300 mg PO 4X/DAY RF: 0 Referrals / Follow Up: Jennie Turk MD [Primary Care Provider] - 08/26/21 1:40 pm Disposition Disposition (needs filled in before D/C Order can be placed): Home, Self Care Charges/Coding Visit Charges Inpatient E&M: 73572 Disch Hosp
--- NOTE | 2021-08-13 15:35 | CASEMGMT ---
Social Work Received phone call and voice mail from patient, who was discharged from inpatient on 08.12.2021. Patient left message asking for call back due to patient having concern about needing more help at home, more than patient originally had thought would need. Called patient back at [phone]. Patient reports since leaving voicemail was able to find an agency out of [place] to come out 3 times a week to help with things at home, as well as give patient some company. Patient talkative and described worry and anxiety at home over the last 24 hours. Described it was hard to fall asleep last night, as was worrying relating thoughts to previously having a relatively healthy lifestyle to having a heart attack without prior warning as an adjustment, and has impacted patient's emotional health. Patient reports to have a degree in psychology, so can view her response for what it is, but also endorses that adjustment to what has happened has been difficult. Supportive listening, reflection, and encouragement offered. Educated that depression and anxiety can be associated with sudden change in health conditions, including heart related issues. Normalized patient's response as common and that it is okay to reach out and ask for help. Patient expressed understanding. Patient reports to have a medical alert system. Patient willing for this ghost writer to send out in the mail some additional resources including options for counseling, should described symptoms become more distressing or not subside. Patient expressed appreciation for call back today. Placed in mail list of local mental health options, [facility] IOP program, and Meals on Wheels information as patient mentioned meal prep as something the private duty home care provider is going to help with. -SEBLE Ramos, RYAN
== END 2021-08-12 13:19 | disposition home or self-care (01) | DRG 246 ==
LOC: ED 02:48 → ICU 02:58 → PCU 08-09 14:05
PROVIDERS: Internal Medicine; Internal Medicine Critical Care Medicine; Admitting Provider Hospitalist; Emergency Provider Emergency Medicine; PCP Internal Medicine; Referring Provider Internal Medicine Interventional Cardiology; Visit Provider Internal Medicine
DX: I21.4 Non-ST elevation (NSTEMI) myocardial infarction (principal); J81.0 Acute pulmonary edema; I16.1 Hypertensive emergency; J96.01 Acute respiratory failure with hypoxia; E87.6 Hypokalemia; I25.10 Atherosclerotic heart disease of native coronary artery without angina pectoris; I10 Essential (primary) hypertension; Z20.822 Contact with and (suspected) exposure to COVID-19; E66.3 Overweight; Z68.29 Body mass index [BMI] 29.0-29.9, adult; Z88.6 Allergy status to analgesic agent; Z79.52 Long term (current) use of systemic steroids; Z79.899 Other long term (current) drug therapy; Z88.8 Allergy status to other drugs, medicaments and biological substances; Z88.0 Allergy status to penicillin; Z88.2 Allergy status to sulfonamides; Z88.5 Allergy status to narcotic agent; Z91.010 Allergy to peanuts
CPT/HCPCS: 31500; 31720; 36415; 36600; 71045; 74018; 80048; 80053; 80061; 82550; 82803; 83735; 83880; 84478; 84484; 85025; 85027; 85610; 85730; 87070; 87205; 87426; 92526; 92610; 92921; 92928; 93005; 93306; 93454; 94002; 94003; 94660; 97110; 97162; 97165; 97803; 99251; 99285; J7030; J7040; J7050; Q9957; Q9967; A4216; C1725; C1760; C1769; C1874; C1887; C1894; C8929; C9600; G0463; J1327; J1940

== ENCOUNTER 2021-10-09 13:32 | Inpatient (IN) | payer MEDICARE, SELFPAY ==
[2021-10-09] VITALS (23 sets, daily range): BP systolic 141–209; BP diastolic 85–126; PULSE 64–164; RESP 11–18; TEMP 35.8–36.6; O2SAT 98–100; BMI 28.3; BMI 24.9
--- NOTE | 2021-10-09 13:36 | CM.ED ---
Social Work This psych social worker responding to stemi alert. No family present. Patient alert and speaking with staff. Will continue to follow as needed. Deandre Dietrich MSW, JACKI-S
--- NOTE | 2021-10-09 13:45 | EKG12_ITS ---
Test Reason : AM EKG Blood Pressure : / mmHG Vent. Rate : 068 BPM Atrial Rate : 068 BPM P-R Int : 146 ms QRS Dur : 078 ms QT Int : 416 ms P-R-T Axes : -07 -39 049 degrees QTc Int : 442 ms Normal sinus rhythm Left axis deviation Anterolateral infarct , age undetermined Abnormal ECG Confirmed by ARNOLDO POLANCO, BINTA ([id number]), brands editor CHAD CUEVA ([id number]) on 10/11/2021 10:03:36 AM Referred By: Jason Conroy Confirmed By:BINTA MCLAUGHLIN MD
--- NOTE | 2021-10-09 13:48 | EX.ED.DYSGE1 ---
HPI History of Present Illness Chief Complaint: Chest Pain Informant: patient and EMS Narrative Narrative: Patient is brought in by EMS for increased heart rate. She had been made prehospital STEMI due to ST elevation with reciprocal inferior changes that were seen on EKG. Prior to the patient's arrival, we are able to look into her chart a bit. We find out that she was a ST elevation [place] back at the end of July got stented and had ST elevation anteriorly so it is possible this could be persistent. Patient states that she started with a increased heart rate today. It is racing. She has some soreness in the left anterior shoulder but that is chronic. She does not have chest pain or had it at any time today. She is not short of breath nauseated or diaphoretic. She is taking her Effient. It sounds like she may have stopped a beta-josh she was on. She has stopped some of her meds due to allergies to multiple meds. She has in excess of 30 allergies. She denies a history of A. fib or dysrhythmia. [facility] Medical History (Updated 10/09/21 @ 16:[address] Luis Alberto Herndon MD) Atherosclerotic heart disease of [place] coronary artery without angina pectoris Cellulitis Essential hypertension Fracture of metatarsal of left foot, closed History of carpal tunnel syndrome History of chronic back pain Myocardial infarct Non-STEMI (non-ST elevated myocardial infarction) Presence of stent in coronary artery (~08/08/21) Pulmonary edema Home Medications Premarin 0.625 mg PO DAILY 02/12/14 [History Last Taken 10/09/21] Gastrocrom 200 mg PO 4X/DAY 01/27/19 [History Last Taken 10/09/21] olopatadine 0.2 % eye drops 1 drp OPHTHALMIC (EYE) DAILY 01/02/21 [History Last Taken Unknown] triamterene 37.5 mg-hydrochlorothiazide 25 mg capsule 1 cap PO DAILY PRN 01/02/21 [History Last Taken 10/09/21] hydrocortisone acetate 25 mg rectal suppository 25 mg NC BID PRN 08/20/21 [History Last Taken 10/09/21] budesonide 32 mcg/actuation nasal spray,aerosol 32 mcg INTRANASAL ONCE PRN 08/30/21 [History Last Taken Unknown] nitrofurantoin macrocrystal 50 mg capsule 50 mg PO DAILY cap 08/30/21 [History Last Taken 10/09/21] pot bicarb 344 mg-sod bicarb 1,050 mg-citric acid 1,000 mg efferv tab 1 tab PO Q4H PRN 08/30/21 [History Last Taken Unknown] prednisolone acetate 0.12 % eye drops,suspension 1 drp OPHTHALMIC (EYE) Q OTHER DAY ml 08/30/21 [History Last Taken 10/08/21] prednisone 5 mg tablet 5 mg PO DAILY tab 08/30/21 [History Last Taken 10/09/21] prasugrel 10 mg tablet 10 mg PO DAILY #36 tab 09/27/21 [Rx Last Taken 10/09/21] acetaminophen 1,000 mg PO DAILY PRN 10/09/21 [History Last Taken 10/08/21] cetirizine [Zyrtec] 10 mg PO DAILY 10/09/21 [History Last Taken 10/09/21] chlordiazepoxide-clidinium 1 cap PO DAILY PRN 10/09/21 [History Last Taken Unknown] Allergy/AdvReac Type Severity Reaction Status Date / Time aspirin Allergy Severe Tight in Verified 10/09/21 13:44 throat, Severe tinnitus, nosebleeds, dizzy. clopidogrel Allergy Intermediate Hives Verified 10/09/21 13:44 alprazolam [From Xanax] Allergy Unknown Unknown Verified 10/09/21 13:44 Dickenson And Derivatives Allergy Unknown Unknown Verified 10/09/21 13:44 mushroom Allergy Unknown Unknown Verified 10/09/21 13:44 paroxetine [From Paxil] Allergy Unknown Unknown Verified 10/09/21 13:44 peanut Allergy Unknown Unknown Verified 10/09/21 13:44 ticagrelor [From Brilinta] Allergy Unknown unknown Verified 10/09/21 13:44 tolmetin [From Tolectin] Allergy Unknown Unknown Verified 10/09/21 13:44 Yeast Allergy Unknown Unknown Verified 10/09/21 13:44 acetaminophen Allergy Other Verified 10/09/21 13:44 [From Darvocet-N] codeine Allergy Other Verified 10/09/21 13:44 fluconazole [From Diflucan] Allergy Rash Verified 10/09/21 13:44 lidocaine Allergy Other Verified 10/09/21 13:44 meperidine HCl [From Demerol] Allergy Other Verified 10/09/21 13:44 metronidazole [From Metrogel] Allergy Rash Verified 10/09/21 13:44 Opioids - Morphine Analogues Allergy Other Verified 10/09/21 13:44 oxycodone HCl [From Percodan] Allergy Other Verified 10/09/21 13:44 oxycodone terephthalate Allergy Other Verified 10/09/21 13:44 [From Percodan] Penicillins Allergy Rash Verified 10/09/21 13:44 propoxyphene napsylate Allergy Other Verified 10/09/21 13:44 [From Darvocet-N] Sulfa (Sulfonamide Allergy Rash Verified 10/09/21 13:44 Antibiotics) Beef Containing Products AdvReac Severe Unknown Verified 10/09/21 13:44 carvedilol AdvReac Severe Very Verified 10/09/21 13:44 lightheaded, Dizziness, floating on ceiling feeling. cheese AdvReac Mild Unknown Verified 10/09/21 13:44 egg AdvReac Unknown Unknown Verified 10/09/21 13:44 maltose AdvReac Unknown Unknown Verified 10/09/21 13:44 adhesive tape AdvReac Rash Verified 10/09/21 13:44 Cephalosporins AdvReac Shortness Verified 10/09/21 13:44 of breath cyclobenzaprine AdvReac NEEDS Verified 10/09/21 13:44 [From Flexeril] FOLLOW-UP epinephrine AdvReac NEEDS Verified 10/09/21 13:44 FOLLOW-UP estrogens, conjugated AdvReac NEEDS Verified 10/09/21 14:42 [From Premarin] FOLLOW-UP glycerin AdvReac Itching Verified 10/09/21 14:46 lisinopril AdvReac Shortness Verified 10/09/21 13:44 of breath midazolam [From Versed] AdvReac NEEDS Verified 10/09/21 13:44 FOLLOW-UP ofloxacin [From Floxin] AdvReac NEEDS Verified 10/09/21 13:44 FOLLOW-UP phenol AdvReac Shortness Verified 10/09/21 14:46 of breath salicylates AdvReac Shortness Verified 10/09/21 13:44 of breath spider venom AdvReac Nausea Verified 10/09/21 13:44 Dyes AdvReac Hallucinati Uncoded 10/09/21 13:44 on Family History (Updated 10/09/21 @ 13:[address] Yady Kumar MD) Father Rheumatic heart disease Mother Cancer Other Allergies Asthma Surgical History H/O: hysterectomy History of D&C History of tonsillectomy History of tubal ligation Presence of coronary angioplasty implant and graft (~08/08/21) Social History (Updated 10/09/21 @ 13:[address] Yady Kumar MD) household members: none Smoking Status: Never smoker alcohol intake: never substance use type: does not use diet: low salt and other what type of physical activity do you participate in: none seatbelt use: always do you feel safe at home: Yes additional social history: ROS ROS ED Constitutional Constitutional ED: Denies chills or fever(s) Eyes Eyes: Denies change in vision ENT ENT ED: Denies rhinorrhea or sore throat Cardiovascular Cardiovascular: Reports palpitations and racing heartbeat; Denies chest pain Respiratory/Chest Respiratory/Chest: Denies cough or dyspnea Gastrointestinal Gastrointestinal: Denies nausea or vomiting Musculoskeletal Musculoskeletal: Reports other Details: Chronic shoulder pain. Not new. ; Denies myalgias Integumentary Denies rash Neurologic Neurologic: Denies headache(s), paresthesias or weakness Psychiatric Psychiatric: Denies depression Allergic/Immunologic Allergic/Immunologic ED: Denies urticaria EXAM Physical Exam Const Vital Signs: 10/09/21 13:33 Respiratory Rate 16 Blood Pressure 188/126 H Positive well nourished and well developed Constitutional Narrative: Patient awake alert and does not look toxic. General Appearance ED: well developed and NAD; Negative for cyanotic, diaphoretic or pallor HEENT Negative for trauma Eyes General Eye ED: Negative for pale conjunctiva or scleral icterus Neck no JVD Chest Wall inspection of chest normal Resp normal respiratory effort and clear to auscultation bilaterally Auscultation: Negative for rales Cardio Rate: tachycardic Rhythm: abnormal rhythm GI normal to inspection, nondistended, normoactive bowel sounds and non-tender Palpation: soft Extremity normal to inspection General Extremety ED: Negative for edema or tenderness General Extremity: Negative for edema Neuro Sensorium / Orientation: alert Psych mental status grossly normal Skin no rashes or lesions noted Skin Narrative: No diaphoresis. General Skin Exam: Negative for pallor MDM MDM MDM Narrative Medical decision making narrative: Hospitalist and community sports coordinator came down as the patient arrived. They have also seen the patient reviewed EKG and her history. Plan will be to get her a dose of beta-josh and start amiodarone. She is on her Effient. Blood work shows mild high white count and hemoglobin. Electrolytes show low potassium at 2.6. TSH was high. Troponin was just minimally elevated at 55. Heart rate was coming down. As the patient was seen by hospitalist and community sports coordinator at arrival, we had put in admit orders. Patient went up as results came back. For this reason I did not get potassium in and some follow-up meds. I did discuss the case again with the hospitalist. She was already fully aware of all the results. She was already ordering potassium and continuing care. I wanted to make sure there was a good clear handoff. Lab Data Attestation: I reviewed the patient's lab results. Labs: Laboratory Results - last 24 hr 10/09/21 10/09/21 10/09/21 13:40 13:40 13:40 WBC 15.8 H RBC 4.74 Hgb 15.2 H Hct 45.6 MCV 96.2 MCH 32.1 H MCHC 33.3 RDW Std Deviation 47.5 H RDW Coeff of Eboni 13.3 Plt Count 360 MPV 9.8 Immature Gran % (Auto) 0.800 Neut % (Auto) 68.0 Lymph % (Auto) 25.3 [place] % (Auto) 5.0 Eos % (Auto) 0.6 Baso % (Auto) 0.3 Absolute Neuts (auto) 10.7 H Absolute Lymphs (auto) 3.99 Nucleated RBC % 0 PT 11.9 INR 0.9 APTT 21.8 L Sodium 136 Potassium 2.6 L* Chloride 101 Carbon Dioxide 26.0 Anion Gap 9 BUN 23 H Creatinine 1.21 H Estim Creat Clear Calc 39.90 Est GFR (MDRD) Af Amer 56 L Est GFR (MDRD) Non-Af 46 L BUN/Creatinine Ratio 19.0 Glucose 159 H Calcium 9.7 Magnesium 1.8 Troponin I High Sens 55 H TSH 4.23 H Discharge Plan Dx/Rx/DC Orders Clinical Impression: New onset atrial fibrillation, Atrial fibrillation with RVR, Hypokalemia, Elevated troponin Disposition Disposition: Acute Care Hospital [facility] Discharge Date/Time: 10/09/21 14:59
--- NOTE | 2021-10-09 13:50 | HP.PCM.HOS_ITS ---
HPI - General General Date of Admission: 10/09/21 Date of Service: 10/09/21 Chief Complaint: Palpitations, initial STEMI concern HPI Narrative The patient is a 76 y/o F w/ PMHx: HTN, HLD, Overweight, CAD s/p 08/08/21 recent PCI RCA, diagonal and LAD with unfortunately allergic reaction to asa, brillinta and plavix following eventually transitioned to prasugrel which she has been faithfully taking in conjunction with low dose prednisone per Dr. Coates direction who now re-presents to the [facility] ED on 10/09/21 with history of sensation of racing heart, palpitations as well as some mild left anterior shoulder dull ache although she notes this is chronic and rated the discomfort 4-10 in severity with no dyspnea, diaphoresis, nausea or emesis and reported that she did take her Effient on day of presentation. Patient unfortunately is had several medication reactions and did potentially stop her beta-josh and was transition off both aspirin and Brilinta to Effient with ongoing prednisone oral therapy per cardiology direction. She denies any associated lightheadedness or dizziness. Work-up in the ED included T 96.4, heart rate initially 164, BP initially 188/126 however did increase to 190 systolic over 103 diastolic, resp iratory rate 14, 99% on 2 L nasal cannula, CBC with WC 15.8 however patient is on low-dose prednisone therapy, hemoglobin 15.2, platelet 360 with left shift, pending coags and pending BMP as well as magnesium, troponin and TSH upon evaluation, chest x-ray pending upon evaluation. ED physician administered IV amiodarone bolus as well as IV Lopressor and started patient on heparin drip per cardiology direction. Arbitrator was involved in care and evaluated patient in the ED secondary to initial concerns for STEMI. [facility] Medical History Atherosclerotic heart disease of [place] coronary artery without angina pectoris Cellulitis Essential hypertension Fracture of metatarsal of left foot, closed History of carpal tunnel syndrome History of chronic back pain Non-STEMI (non-ST elevated myocardial infarction) Presence of stent in coronary artery (~08/08/21) Pulmonary edema Home Medications Premarin 0.625 mg PO DAILY 02/12/14 [History Last Taken Unknown] Zyrtec 10 mg PO DAILY 02/12/14 [History Last Taken Unknown] Gastrocrom 200 mg PO 4X/DAY 01/27/19 [History Last Taken Unknown] chlordiazepoxide-clidinium 2.5 mg PO DAILY PRN 02/16/19 [History Last Taken Unknown] acetaminophen 325 mg capsule 325 mg PO ONCE PRN 01/02/21 [History Last Taken Unknown] olopatadine 0.2 % eye drops 1 drp OPHTHALMIC (EYE) DAILY 01/02/21 [History Last Taken Unknown] triamterene 37.5 mg-hydrochlorothiazide 25 mg capsule 1 cap PO DAILY PRN 01/02/21 [History Last Taken Unknown] hydrocortisone acetate 25 mg rectal suppository 25 mg UT BID PRN 08/20/21 [History Last Taken Unknown] budesonide 32 mcg/actuation nasal spray,aerosol 32 mcg INTRANASAL ONCE PRN 08/30/21 [History Last Taken Unknown] chlordiazepoxide HCl 5 mg capsule 5 mg PO BID PRN 08/30/21 [History Last Taken Unknown] chlordiazepoxide HCl 5 mg capsule 5 mg PO BID PRN 08/30/21 [History Last Taken Unknown] nitrofurantoin macrocrystal 50 mg capsule 50 mg PO .COMPLEX cap 08/30/21 [History Last Taken Unknown] pot bicarb 344 mg-sod bicarb 1,050 mg-citric acid 1,000 mg efferv tab 1 tab PO Q4H PRN 08/30/21 [History Last Taken Unknown] prednisolone acetate 0.12 % eye drops,suspension 1 drp OPHTHALMIC (EYE) Q OTHER DAY ml 08/30/21 [History Last Taken Unknown] prednisone 5 mg tablet 5 mg PO DAILY tab 08/30/21 [History Last Taken Unknown] pseudoephedrine HCl 30 mg capsule (abuse-resistant) 30 mg PO Q6H ea 08/30/21 [History Last Taken Unknown] amlodipine 2.5 mg tablet 1.25 mg PO DAILY #30 tab 09/02/21 [Rx Last Taken Unknown] atorvastatin 20 mg tablet 30 mg PO QHS #45 tab 09/03/21 [Rx Last Taken Unknown] prasugrel 10 mg tablet 10 mg PO DAILY #36 tab 09/27/21 [Rx Last Taken Unknown] Allergy/AdvReac Type Severity Reaction Status Date / Time aspirin Allergy Severe Tight in Verified 10/09/21 13:44 throat, Severe tinnitus, nosebleeds, dizzy. clopidogrel Allergy Intermediate Hives Verified 10/09/21 13:44 alprazolam [From Xanax] Allergy Unknown Unknown Verified 10/09/21 13:44 [place] And Derivatives Allergy Unknown Unknown Verified 10/09/21 13:44 mushroom Allergy Unknown Unknown Verified 10/09/21 13:44 paroxetine [From Paxil] Allergy Unknown Unknown Verified 10/09/21 13:44 peanut Allergy Unknown Unknown Verified 10/09/21 13:44 ticagrelor [From Brilinta] Allergy Unknown unknown Verified 10/09/21 13:44 tolmetin [From Tolectin] Allergy Unknown Unknown Verified 10/09/21 13:44 Yeast Allergy Unknown Unknown Verified 10/09/21 13:44 acetaminophen Allergy Other Verified 10/09/21 13:44 [From Darvocet-N] codeine Allergy Other Verified 10/09/21 13:44 fluconazole [From Diflucan] Allergy Rash Verified 10/09/21 13:44 lidocaine Allergy Other Verified 10/09/21 13:44 meperidine HCl [From Demerol] Allergy Other Verified 10/09/21 13:44 metronidazole [From Metrogel] Allergy Rash Verified 10/09/21 13:44 Opioids - Morphine Analogues Allergy Other Verified 10/09/21 13:44 oxycodone HCl [From Percodan] Allergy Other Verified 10/09/21 13:44 oxycodone terephthalate Allergy Other Verified 10/09/21 13:44 [From Percodan] Penicillins Allergy Rash Verified 10/09/21 13:44 propoxyphene napsylate Allergy Other Verified 10/09/21 13:44 [From Darvocet-N] Sulfa (Sulfonamide Allergy Rash Verified 10/09/21 13:44 Antibiotics) Beef Containing Products AdvReac Severe Unknown Verified 10/09/21 13:44 carvedilol AdvReac Severe Very Verified 10/09/21 13:44 lightheaded, Dizziness, floating on ceiling feeling. cheese AdvReac Mild Unknown Verified 10/09/21 13:44 egg AdvReac Unknown Unknown Verified 10/09/21 13:44 maltose AdvReac Unknown Unknown Verified 10/09/21 13:44 adhesive tape AdvReac Rash Verified 10/09/21 13:44 Cephalosporins AdvReac Shortness Verified 10/09/21 13:44 of breath cyclobenzaprine AdvReac NEEDS Verified 10/09/21 13:44 [From Flexeril] FOLLOW-UP epinephrine AdvReac NEEDS Verified 10/09/21 13:44 FOLLOW-UP estrogens, conjugated AdvReac NEEDS Verified 10/09/21 13:44 [From Premarin] FOLLOW-UP lisinopril AdvReac Shortness Verified 10/09/21 13:44 of breath midazolam [From Versed] AdvReac NEEDS Verified 10/09/21 13:44 FOLLOW-UP ofloxacin [From Floxin] AdvReac NEEDS Verified 10/09/21 13:44 FOLLOW-UP salicylates AdvReac Shortness Verified 10/09/21 13:44 of breath spider venom AdvReac Nausea Verified 10/09/21 13:44 Dyes AdvReac Hallucinati Uncoded 10/09/21 13:44 on Family History (Updated 10/09/21 @ 13:[address] Yady Kumar MD) Father Rheumatic heart disease Mother Cancer Other Allergies Asthma Surgical History H/O: hysterectomy History of D&C History of tonsillectomy History of tubal ligation Presence of coronary angioplasty implant and graft (~08/08/21) Social History (Updated 10/09/21 @ 13:[address] Yady Kumar MD) household members: none Smoking Status: Never smoker alcohol intake: never substance use type: does not use diet: low salt and other what type of physical activity do you participate in: none seatbelt use: always do you feel safe at home: Yes additional social history: ROS ROS Narrative Admission Review of Systems: CONSTITUTIONAL: No weight loss, fever, chills, + weakness or fatigue. HEENT: Eyes: No visual loss, blurred vision, double vision or yellow sclerae. Ears, Nose, Throat: No hearing loss, sneezing, congestion, runny nose or sore throat. SKIN: No rash or itching, lesions, wounds. CARDIOVASCULAR: + L shoulder discomfort, palpations/racing heart, No chest pain, edema, orthopnea, syncopal events. RESPIRATORY: No shortness of breath, cough or sputum, wheezing, hemoptysis. GASTROINTESTINAL: No anorexia, nausea, vomiting or diarrhea, abdominal pain, melena, BRBPR. GENITOURINARY: No dysuria, frequency, urgency or retention. NEUROLOGICAL: No headache, dizziness, syncope, paralysis, ataxia, numbness or tingling in the extremities, focal weakness, change in bowel or bladder control, seizure. MUSCULOSKELETAL:+ muscle, back pain, joint pain or stiffness. HEMATOLOGIC: + anemia, bleeding or bruising. LYMPHATICS: No enlarged nodes. No history of splenectomy. PSYCHIATRIC: + history of depression or anxiety. ENDOCRINOLOGIC: No reports of sweating, cold or heat intolerance. No polyuria or polydipsia. ALLERGIES: + history of asthma, hives, eczema or rhinitis. Vital Signs Vital Signs Vital Signs: 10/09/21 13:33 10/09/21 13:44 10/09/21 13:48 Temperature 96.4 F L Temperature Source Temporal Pulse Rate 164 H 151 H Respiratory Rate 16 14 18 Blood Pressure 188/126 H 190/103 H 190/103 H Blood Pressure Mean 132 132 Pulse Ox 100 100 Oxygen Delivery Method Venturi Mask Room Air Oxygen Flow Rate (L/min) 2 Weight Weight: 186 lb 8.177 oz Body Mass Index (BMI) 28.3 Physical Exam Narrative Physical Examination: General: Awake, alert, oriented x 3 and cooperative, seated upright in the ED bed, mildly anxious given all the events ongoing with initial concern for STEMI, denies any chest pain. Skin: Normal color, normal turgor, no icterus, no cyanosis except for occasional staged abrasion, ecchymoses. HEENT: AT/NC, EOMI, PERRLA, MMM, no carotid bruits or JVD noted. Lungs: Diminished, greater bases, appropriate effort, no rales, ronchi or wheezing. Heart: Irregular irregular; no gallop, rub audible. Abdomen: Soft, overweight, NTTP, ND, distant normal BS, no HSM. Extremities: No cyanosis, clubbing, or edema. Neurological: Patient awake, alert, oriented as noted, cognitive function intact; pupils equally reactive to light and accommodation, cranial nerves II- XII grossly normal, moving all 4 extremities, no focal deficits, strength moderately to severely global decreased secondary to acute presentation. Psychiatric: Affect appears mildly anxious, no acute evidence of depressive feelings. Assessment & Plan Assessment/Plan (1) Atrial fibrillation with RVR: PLAN: The patient is a 76 y/o F w/ PMHx: HTN, HLD, Overweight, CAD s/p 08/08/21 recent PCI RCA, diagonal and LAD with unfortunately allergic reaction to asa, brillinta and plavix following eventually transitioned to prasugrel which she has been faithfully taking in conjunction with low dose prednisone per Dr. Coates direction who now re-presents to the [facility] ED on 10/09/21 with history of sensation of racing heart, palpitations as well as some mild left anterior shoulder dull ache although she notes this is chronic and rated the discomfort 4-10 in severity with no dyspnea, diaphoresis, nausea or emesis and reported that she did take her Effient on day of presentation. #1. New onset, Paroxsymal atrial fibrillation: EKG in ED w/ atrial fibrillation with RVR with initial concerns for possible STEMI secondary to ST elevation with reciprocal inferior changes however patient upon further evaluation had had ST elevation in at the end of July with stenting and it had already had ST elevation anteriorly therefore possibly persistent. Patient administered amiodarone bolus and Lopressor IV in ED. Will admit to ICU, maintain on telemetry, obtain cardiac enzyme serial set, obtain magnesium level, obtain ECHO, obtain TSH level, initiate amiodarone drip, maintain on heparin drip. Cardiology is consulted and given STEMI initial call evaluated patient in the ED. #2. CAD: 08/08/21 NSTEMI, initial concern STEMI which per record was ruled out with associated flash pulmonary edema requiring transient intubation and ICU admission in addition to HTN emergency, s/p 08/08/21 successful PCI and drug- eluting stent mid LAD, PTCA side branch diagonal 1 with 99% stenosis improved to 10-20% stenosis, drug-eluting stent mid RCA, ECHO 08/08/2021 EF 40-45% and mildly dilated left ventricle. Noted plan for future was PCI/stent to left circumflex/OM1 OM 2 in a staged procedure on an outpatient basis. Most recen Cardiology visit noted 08/30/21. #3. Hypertensive Urgency: Continue home regimen including triamterene?hydrochlorothiazide, amlodipine with dose upon admission given elevated BP, several allergies thus difficult, may use IV lopressor PRN as used in the ED without event, additionally will have PRN hydralazine. #4. Hyperlipidemia: Continue home statin regimen. AM FLP. #5. Overweight: Weight loss and lifestyle changes encouraged. #6. Allergic rhinitis: We will continue patient home Zyrtec regimen. #7. DVT: SCDs, will continue heparin drip per cardiology direction. #8 CODE status: Patient MIQUEL is her son and living will is not currently in place. Discussed CODE status at length including difference between FULL code, DNR-CCA and DNR-CC status. Following discussions about the differences in these status, requested DNR-CCA, no intubation status. Advanced Care Planning Face to Face Time: 16 minutes. Charges/Coding Visit Charges Inpatient E&M: 82209 Init Hosp L3 Procedures Hospitalists Procedures: 43039 Advncd Care Plan 30 Min
--- NOTE | 2021-10-09 13:50 | RAD_ITS ---
STUDY: X-RAY CHEST REASON FOR EXAM: Female, 76 years old. Chest pain TECHNIQUE: Single AP portable view of the chest. COMPARISON: Comparison is made with prior study dated 08/08/2021. FINDINGS: EKG electrodes are seen. Defibrillator pads are seen overlying the left hemithorax. Are seen overlying the left hemithorax. The lungs are clear and expanded. There is no demonstrated pleural abnormality. Normal size heart. Normal mediastinum and jess. Normal visualized pulmonary arteries. There is atherosclerotic tortuosity of the aortic arch and descending thoracic aorta. There are degenerative changes of the visualized thoracic spine. Normal visualized ribs, clavicles, and shoulders. There is no demonstrated abnormality of the visualized soft tissue structures of the upper abdomen. RAD/Chest 1 View (Portable) IMPRESSION: No acute abnormality is seen. Electronically Signed: Hardik Montana MD at 14:07 EST ,
[2021-10-09 13:59] LABS: Absolute Lymphocyte Count 3.99 X10^3/uL (0.83-4.51); Absolute Neutrophil Count 10.7 X10^3/uL (2.0-7.7); Basophil# 0.05 X10^3/uL; Basophil% 0.3 % (0-1); Eosinophils% 0.6 % (0-5); Hematocrit 45.6 % (37-47); Hemoglobin 15.2 g/dL (12.0-15.0); Lymphocyte # 3.99 X10^3/ul (0.83-4.51); Lymphocyte % 25.3 % (19-41); Mean Corp Hgb Conc 33.3 g/dL (32-36); Mean Corpuscular Hgb 32.1 pg (27.0-32.0); Mean Corpuscular Volume 96.2 fL (81-99); Mean Platelet Vol. 9.8 fl (6.2-12.0); Monocyte# 0.79 X10^3/uL; NRBC Flagged by Analyzer 0 % (0-5); Neutrophil # 10.73 X10^3/uL (2.7-7.7); Platelet Count 360 K/mm3 (150-450); RBC Distribution Width CV 13.3 % (11.6-14.6); RBC Distribution Width SD 47.5 fl (35.1-43.9); Red Blood Count 4.74 M/mm3 (4.2-5.4); White Blood Count 15.8 K/mm3 (4.4-11.0)
[2021-10-09] MEDS: Metoprolol Tartrate 5 MG/5 ML Vial IV (14:00)
[2021-10-09] MEDS: 0.9% Normal Saline 1,000 ML 100 ML IV (14:00)
[2021-10-09 14:07] LABS: International Normalized Ratio 0.9; Prothrombin Time (Protime)PT. 11.9 SECONDS (11.7-14.9)
[2021-10-09 14:08] LABS: Partial Thromboplast Time 21.8 Seconds (24.1-36.2)
--- NOTE | 2021-10-09 14:15 | CASEMGMT ---
JUANITA GOMEZ Assessment: RN CM to room to meet with patient for initial transition planning/care coordination assessment. JUANITA GOMEZ introduced self and role at [facility]. Patient voices understanding and consents to assessment at this time. Patient's son Andrew Gutierres present at bedside and active in transition planning. Patient is alert and oriented and answers all questions appropriately, sitting up on ER cart with oxygen per NC in no apparent distress. Care providers, pharmacy, and demographics verified/updated at this time. Admitting Dx: atrial fibrillation with RVR PCP: Jennie Turk Specialists: Aminata- barrel cleaner, Dr. Kit French- technical analyst ([place], [place]) Preferred Pharmacy: [facility] Insurance: [id number] [facility] Prescription Benefit: yes Living Will/HPOA: Patient denies having a living will and states HPOA is garcia Gutierres. Patient made aware this form is not on file at [facility] and may be brought in to be scanned into record. LNOK: Garcia Gutierres Living Arrangements: Patient lives alone in multi-story house (5 levels) with 6-8 steps to enter the home. Patient denies difficulty navigating stairs at home. Patient states independent with ADLs prior to hospitalization. Typically ambulates independently without the use of an assistive device but does use cane on occasion. Smoking/ETOH: Patient reports she smoked for 30 days during her freshman year of college in 1959's and quit, denies ETOH use Transportation: Patient does not drive. Patient's son Andrew and close friend drives patient and patient denies transportation concerns. DME/HHC/SNF: Patient has a cane and medical alert at home. Denies need for additional DME at this time. Patient denies previous HHC or SNF stays. During previous admission, patient requested hearing aide technician and reports she hired an aide from [employer] but was dissatisfied with service and cancelled. Patient has no concerns with going home at time of discharge and denies need for HHC. CM to follow for any discharge planning/needs. Patient voices no concerns/needs at this time. Advised patient and son to ask for CM if any questions/concerns/needs arise. Voices understanding. Plan: home
[2021-10-09 14:25] LABS: Anion Gap 9 (5-15); BUN 23 mg/dL (7-18); Calcium,Total 9.7 mg/dL (8.5-10.1); Chloride 101 mmol/L (98-107); Creatinine, Serum 1.21 mg/dL (0.55-1.02); EST Glomerular Filtration Rate 46 mL/min (>60); Est Glom Filt Rate - Afr Amer 56 mL/min (>60); Glucose 159 mg/dL (74-106); Magnesium 1.8 mg/dL (1.6-2.6); Potassium 2.6 mmol/L (3.5-5.1); Sodium Level 136 mmol/L (136-145); Thyroid Stim Hormone (TSH) 4.23 uIU/mL (0.358-3.74); Troponin-I HS 55 pg/mL (3.0-54.0)
--- NOTE | 2021-10-09 14:56 | ECHOL_ITS ---
Reason For Study: PAF w RVR Procedure This was a limited 2D transthoracic echocardiogram. The study was technically difficult. Patient did not want Definity due to allergy to many medications. Exam performed portable in ICU/CCU. Left Ventricle Normal LV size. Sigmoid septum. Mild global left ventricular systolic dysfunction. The estimated ejection fraction is 45 %. Unable to assess diastolic dysfunction. Mid-Anterior : Hypokinetic. Mid- Lateral : Hypokinetic. Mid-Posterior: Hypokinetic. Mid-Inferior: Hypokinetic. Mid-inferoseptal : Hypokinetic. Mid-anteroseptal : Hypokinetic. [place] : Hypokinetic. Right Ventricle Normal RV size. Normal systolic function. Atria Normal left atrium. Normal right atrium. No doppler evidence for ASD. Mitral Valve There is mild mitral annular calcification. Mild focal mitral valve calcification of the anterior leaflet. Mild-Moderate (1-2+) eccentric mitral valve insufficiency. Tricuspid Valve Normal tricuspid valve. Trivial tricuspid valve insufficiency. Right ventricular systolic pressure estimated to be 24 mmHg. Aortic Valve Trisinus/trileaflet aortic valve. Normal aortic valve. Pulmonic Valve The pulmonic valve is not well visualized. Great Vessels The aortic root is not well visualized. Pericardium/Pleural No pericardial effusion. MMode/2D Measurements & Calculations LVIDd: 4.1 cm IVSd: 1.4 cm LVIDs: 2.8 cm LVPWd: 1.1 cm FS: 30.9 % Doppler Measurements & Calculations TR max leonid: 230.6 cm/sec TR max P.3 mmHg ECHO/Echo, Limited Study Interpretation Summary The study was technically difficult. Mild global left ventricular systolic dysfunction. The estimated ejection fraction is 45 %. Sigmoid septum. There is mild mitral annular calcification. Mild focal mitral valve calcification of the anterior leaflet. Mild-Moderate (1-2+) eccentric mitral valve insufficiency. Trivial tricuspid valve insufficiency. Right ventricular systolic pressure estimated to be 24 mmHg. Unable to assess diastolic dysfunction. Ordering Physician: Yady Kumar Referring Physician: Jennie Turk Performed By: Sherri Marte, MARYCHUY, RVT
--- NOTE | 2021-10-09 15:01 | CHAPLAIN ---
Type of Pastoral Visit ___ Initial Visit ___ Follow-up Visit ___ On-call Visit ___ General Patient Visit ___ Spiritual Assessment ___ Family Conference ___ Bereavement _x__ Rapid Response ___ Code Blue ___ Other (describe below) Pastoral Care Referral From ___ Patient ___ Family ___ Nurse ___ Physician ___ Watch Crystal Grinder ___ Nursing Project Coordinator _x__ Other (describe below) Sacrament/Intervention _x__ Active listening ___ Anointing ___ Episcopal ___ Bereavement ___ Communion ___ Che exploration ___ ___ Life review _x__ Prayer ___ Reconciliation ___ Sacrament of Sick _x__ Supportive presence ___ Wedding ___ Other (describe below) Pastoral Comments came to ED for stemi alert; patient is alert and talking; son of patient arrived and escorted into room by this building estimator; offer of support to patient who welcomed presence and a prayer; will follow up with patient as needed or desired
[2021-10-09] MEDS: Potassium Chloride Oral Tablet 20 MEQ 40 MEQ PO (15:35)
--- NOTE | 2021-10-09 16:35 | CON.PCM.CA_ITS ---
Assessment & Plan Assessment/Plan (1) Atherosclerotic heart disease of [place] coronary artery without angina pectoris: (2) Essential hypertension: (3) Hypokalemia: (4) Atrial fibrillation with RVR: PLAN: 76-year-old patient with known history of CAD,S/p PCI and stent of LAD, PTCA of D1 and PCI stent of RCA Presenting with palpitation and chronic left shoulder discomfort, noted she had underlying atrial fibrillation with rapid ventricular rate She denied any symptoms of chest pain In August 08, 2021, presented to the ER with the STEMI/anteroseptal NM And she had severe pulmonary edema, required intubation treated in ICU subsequently she underwent PCI of the RCA, LAD and PTCA of diagonal. Evidently she was allergic to the Brilinta aspirin and has been seen and followed at the [facility] and started on Effient in addition to prednisone This presentation with A. fib and RVR I saw her in the ER and start amiodarone drip converted to sinus rhythm Repeat echocardiogram showed ejection fraction 45% with mild to moderate eccentric MR Also noted patient has hypokalemia with a low potassium of 2.6 Cardiac care plan and recommendations; 1. High risk patient for stroke based on [id number] Started on Eliquis, renal function is normal, risk of bleeding of Effient with Eliquis/risk assessment 2. Correction of electrolytes, noted hypokalemia with a potassium of 2.6 3. Started on beta-josh metoprolol 25 mg twice daily 4. 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 Luis Alberto Herndon MD) Atherosclerotic heart disease of [place] coronary artery without angina pectoris Cellulitis Essential hypertension Fracture of metatarsal of left foot, closed History of carpal tunnel syndrome History of chronic back pain Myocardial infarct Non-STEMI (non-ST elevated myocardial infarction) Presence of stent in coronary artery (~08/08/21) Pulmonary edema Home Medications Premarin 0.625 mg PO DAILY 02/12/14 [History Last Taken 10/09/21] Gastrocrom 200 mg PO 4X/DAY 01/27/19 [History Last Taken 10/09/21] olopatadine 0.2 % eye drops 1 drp OPHTHALMIC (EYE) DAILY 01/02/21 [History Last Taken Unknown] triamterene 37.5 mg-hydrochlorothiazide 25 mg capsule 1 cap PO DAILY PRN 01/02/21 [History Last Taken 10/09/21] hydrocortisone acetate 25 mg rectal suppository 25 mg NM BID PRN 08/20/21 [History Last Taken 10/09/21] budesonide 32 mcg/actuation nasal spray,aerosol 32 mcg INTRANASAL ONCE PRN 08/30/21 [History Last Taken Unknown] nitrofurantoin macrocrystal 50 mg capsule 50 mg PO DAILY cap 08/30/21 [History Last Taken 10/09/21] pot bicarb 344 mg-sod bicarb 1,050 mg-citric acid 1,000 mg efferv tab 1 tab PO Q4H PRN 08/30/21 [History Last Taken Unknown] prednisolone acetate 0.12 % eye drops,suspension 1 drp OPHTHALMIC (EYE) Q OTHER DAY ml 08/30/21 [History Last Taken 10/08/21] prednisone 5 mg tablet 5 mg PO DAILY tab 08/30/21 [History Last Taken 10/09/21] prasugrel 10 mg tablet 10 mg PO DAILY #36 tab 09/27/21 [Rx Last Taken 10/09/21] acetaminophen 1,000 mg PO DAILY PRN 10/09/21 [History Last Taken 10/08/21] cetirizine [Zyrtec] 10 mg PO DAILY 10/09/21 [History Last Taken 10/09/21] chlordiazepoxide-clidinium 1 cap PO DAILY PRN 10/09/21 [History Last Taken Unknown] Allergy/AdvReac Type Severity Reaction Status Date / Time aspirin Allergy Severe Tight in Verified 10/09/21 13:44 throat, Severe tinnitus, nosebleeds, dizzy. clopidogrel Allergy Intermediate Hives Verified 10/09/21 13:44 alprazolam [From Xanax] Allergy Unknown Unknown Verified 10/09/21 13:44 Colerain And Derivatives Allergy Unknown Unknown Verified 10/09/21 13:44 mushroom Allergy Unknown Unknown Verified 10/09/21 13:44 paroxetine [From Paxil] Allergy Unknown Unknown Verified 10/09/21 13:44 peanut Allergy Unknown Unknown Verified 10/09/21 13:44 ticagrelor [From Brilinta] Allergy Unknown unknown Verified 10/09/21 13:44 tolmetin [From Tolectin] Allergy Unknown Unknown Verified 10/09/21 13:44 Yeast Allergy Unknown Unknown Verified 10/09/21 13:44 acetaminophen Allergy Other Verified 10/09/21 13:44 [From Darvocet-N] codeine Allergy Other Verified 10/09/21 13:44 fluconazole [From Diflucan] Allergy Rash Verified 10/09/21 13:44 lidocaine Allergy Other Verified 10/09/21 13:44 meperidine HCl [From Demerol] Allergy Other Verified 10/09/21 13:44 metronidazole [From Metrogel] Allergy Rash Verified 10/09/21 13:44 Opioids - Morphine Analogues Allergy Other Verified 10/09/21 13:44 oxycodone HCl [From Percodan] Allergy Other Verified 10/09/21 13:44 oxycodone terephthalate Allergy Other Verified 10/09/21 13:44 [From Percodan] Penicillins Allergy Rash Verified 10/09/21 13:44 propoxyphene napsylate Allergy Other Verified 10/09/21 13:44 [From Darvocet-N] Sulfa (Sulfonamide Allergy Rash Verified 10/09/21 13:44 Antibiotics) Beef Containing Products AdvReac Severe Unknown Verified 10/09/21 13:44 carvedilol AdvReac Severe Very Verified 10/09/21 13:44 lightheaded, Dizziness, floating on ceiling feeling. cheese AdvReac Mild Unknown Verified 10/09/21 13:44 egg AdvReac Unknown Unknown Verified 10/09/21 13:44 maltose AdvReac Unknown Unknown Verified 10/09/21 13:44 adhesive tape AdvReac Rash Verified 10/09/21 13:44 Cephalosporins AdvReac Shortness Verified 10/09/21 13:44 of breath cyclobenzaprine AdvReac NEEDS Verified 10/09/21 13:44 [From Flexeril] FOLLOW-UP epinephrine AdvReac NEEDS Verified 10/09/21 13:44 FOLLOW-UP estrogens, conjugated AdvReac NEEDS Verified 10/09/21 14:42 [From Premarin] FOLLOW-UP glycerin AdvReac Itching Verified 10/09/21 14:46 lisinopril AdvReac Shortness Verified 10/09/21 13:44 of breath midazolam [From Versed] AdvReac NEEDS Verified 10/09/21 13:44 FOLLOW-UP ofloxacin [From Floxin] AdvReac NEEDS Verified 10/09/21 13:44 FOLLOW-UP phenol AdvReac Shortness Verified 10/09/21 14:46 of breath salicylates AdvReac Shortness Verified 10/09/21 13:44 of breath spider venom AdvReac Nausea Verified 10/09/21 13:44 Dyes AdvReac Hallucinati Uncoded 10/09/21 13:44 on Family History (Updated 10/09/21 @ 13:[address] Yady Kumar MD) Father Rheumatic heart disease Mother Cancer Other Allergies Asthma Surgical History H/O: hysterectomy History of D&C History of tonsillectomy History of tubal ligation Presence of coronary angioplasty implant and graft (~08/08/21) Social History (Updated 10/09/21 @ 13:[address] Yady Kumar MD) household members: none Smoking Status: Never smoker alcohol intake: never substance use type: does not use diet: low salt and other what type of physical activity do you participate in: none seatbelt use: always do you feel safe at home: Yes additional social history: Physical Exam Narrative Patient seen at bedside in the emergency department along with the nursing staff and her son at bedside. She presented with palpitation with left shoulder, discomfort which is chronic, no symptoms of chest pain Patient alert orientated she has A. fib with RVR on the monitor Cardiovascular examination; S1-S2 is irregular, no systolic or diastolic murmur Chest examination; normal auscultation bilateral Abdomen; soft Examination lower extremity no lower extremity edema no clubbing no cyanosis Examination of central nervous system; no focal neurological deficit. Risk Stratification Risk Stratification Applicable: Yes Age >/= 65: Yes >/= 3 CAD Risk Factors (HTN, HLD, DM, family hx of CAD, or current smoker): Yes Aspirin Use in the Past 7 Days: No Severe Angina (>/= episodes in 24 hours): No EKG ST Changes >/= 0.5mm: No Positive Cardiac Marker: No GONZALEZ Risk Stratification Score: 2 GONZALEZ % Risk: 8% Risk Objective Data Vital Signs: Vital Signs Temp Pulse Resp BP Pulse Ox 97.9 F 73 14 191/91 H 100 10/09/21 15:07 10/09/21 16:00 10/09/21 16:00 10/09/21 16:00 10/09/21 16:00 Oxygen Flow Rate (L/min) 2 Oxygen Delivery Method Room Air Weight: 164 lb 0.383 oz Body Mass Index (BMI) 24.9 Intake & Output: Intake and Output for Last 24 Hours 10/07/21 10/08/21 10/09/21 23:59 23:59 23:59 Intake Total 103 / 103 Output Total 400 / 400 Balance -297 / -297 Lab / Micro Data Result Diagrams: 10/09/21 13:40 10/09/21 13:40 Labs: Laboratory Results - last 24 hr 10/09/21 13:40: WBC 15.8 H, RBC 4.74, Hgb 15.2 H, Hct 45.6, MCV 96.2, MCH 32.1 H , MCHC 33.3, RDW Std Deviation 47.5 H, RDW Coeff of [place]bon[place] 13.3, Plt Count 360, MPV 9.8, Immature Gran % (Auto) 0.800, Neut % (Auto) 68.0, Lymph % (Auto) 25.3, [place] % (Auto) 5.0, Eos % (Auto) 0.6, Baso % (Auto) 0.3, Absolute Neuts (auto) 10.7 H, Absolute Lymphs (auto) 3.99, Nucleated RBC % 0 10/09/21 13:40: Sodium 136, Potassium 2.6 L*, Chloride 101, Carbon Dioxide 26.0, Anion Gap 9, BUN 23 H, Creatinine 1.21 H, Estim Creat Clear Calc 39.90, Est GFR (MDRD) Af Amer 56 L, Est GFR (MDRD) Non-Af 46 L, BUN/Creatinine Ratio 19.0, Glucose 159 H, Calcium 9.7, Magnesium 1.8, Troponin I High Sens 55 H, TSH 4.23 H 10/09/21 13:40: PT 11.9, INR 0.9, APTT 21.8 L Cardiology Labs/Tests 10/09/21 13:40: WBC 15.8 H, RBC 4.74, Hgb 15.2 H, Hct 45.6, MCV 96.2, MCH 32.1 H , MCHC 33.3, Plt Count 360, MPV 9.8, Immature Gran % (Auto) 0.800, Neut % (Auto) 68.0, Lymph % (Auto) 25.3, [place] % (Auto) 5.0, Eos % (Auto) 0.6, Baso % (Auto) 0. 3, Absolute Neuts (auto) 10.7 H, Nucleated RBC % 0 10/09/21 13:40: Sodium 136, Potassium 2.6 L*, Chloride 101, Carbon Dioxide 26.0, Anion Gap 9, BUN 23 H, Creatinine 1.21 H, Est GFR (MDRD) Af Amer 56 L, Est GFR (MDRD) Non-Af 46 L, BUN/Creatinine Ratio 19.0, Glucose 159 H, Calcium 9.7, Magnesium 1.8 10/09/21 13:40: PT 11.9, INR 0.9, APTT 21.8 L Rhythm: Atrial fibrillation with RVR EKG: Age indeterminate anterior NM, A. fib with RVR ECHO: EF 45% Mild to moderate eccentric MR Radiography Diagnostic Testing: Radiology Impression Chest X-Ray 10/09/21 13:50 IMPRESSION: No acute abnormality is seen. Electronically Signed: Hardik Montana MD at 14:07 EST Reading Location ID and State: [address] [place] [address] , Service support , Echocardiogram 10/09/21 14:56 Interpretation Summary The study was technically difficult. Mild global left ventricular systolic dysfunction. The estimated ejection fraction is 45 %. Sigmoid septum. There is mild mitral annular calcification. Mild focal mitral valve calcification of the anterior leaflet. Mild-Moderate (1-2+) eccentric mitral valve insufficiency. Trivial tricuspid valve insufficiency. Right ventricular systolic pressure estimated to be 24 mmHg. Unable to assess diastolic dysfunction. Ordering Physician: Yady Kumar Referring Physician: Jennie Turk Performed By: Sherri Marte, MARYCHUY, RVT
[2021-10-09] MEDS: Metoprolol Tartrate 25 MG Tablet PO ×2 (16:56→21:14)
[2021-10-09 17:01] LABS: Troponin-I HS 459 pg/mL (3.0-54.0)
[2021-10-09] MEDS: CROMOLYN SODIUM 20 MG/ML 200 MG PO ×2 (18:44→21:11)
[2021-10-09] MEDS: Heparin Injection (Vial) 5,000 UNIT/ML VIAL 5000 UNIT IV (19:17)
[2021-10-09 21:05] LABS: Anion Gap 6 (5-15); BUN 19 mg/dL (7-18); BUN/Creat Ratio 15.6 RATIO (10-20); Chloride 107 mmol/L (98-107); Creatinine, Serum 1.22 mg/dL (0.55-1.02); EST Glomerular Filtration Rate 46 mL/min (>60); Est Glom Filt Rate - Afr Amer 55 mL/min (>60); Estimated Creatinine Clearance 39.57 ml/min; Glucose 144 mg/dL (74-106); Potassium 4.1 mmol/L (3.5-5.1); Sodium Level 139 mmol/L (136-145)
[2021-10-09] MEDS: Amiodarone 200 MG Tablet PO (21:14)
[2021-10-09 21:21] LABS: Troponin-I HS 1536 pg/mL (3.0-54.0)
[2021-10-09] MEDS: hydrALAZINE 20 MG/ML Vial 10 MG IV (23:47)
[2021-10-10] VITALS (28 sets, daily range): BP systolic 126–195; BP diastolic 66–104; PULSE 63–90; RESP 11–19; TEMP 36.1–36.9; O2SAT 97–100
--- NOTE | 2021-10-10 | NURSING ---
Patient educated at length about Hydrazaline administration due to elevated BP and refusal of Nitroglycerin. Patient presented with skepticism and anxiety related to medication administration. After 2 hours of therapeutic communication the patient accepted medication. Given with positive results.
--- NOTE | 2021-10-10 01:16 | NURSING ---
Addendum entered by Scott Dean 10/10/21 01:19: This occurred on 10/09 at 2200 Original Note: Patient educated on MD order for Nitroglycerin IV. Patient refused medication at this time due to allergies. Patient educated thoroughly on reason for medication administration but still refused. BP noted to be persistently elevated.
[2021-10-10 02:55] LABS: Partial Thromboplast Time 125.3 Seconds (24.1-36.2)
[2021-10-10 04:37] LABS: Absolute Lymphocyte Count 2.76 X10^3/uL (0.83-4.51); Absolute Neutrophil Count 12.7 X10^3/uL (2.0-7.7); Basophil# 0.05 X10^3/uL; Basophil% 0.3 % (0-1); Eosinophil# 0.05 X10^3/uL; Eosinophils% 0.3 % (0-5); Hematocrit 40.5 % (37-47); Hemoglobin 13.5 g/dL (12.0-15.0); Lymphocyte # 2.76 X10^3/ul (0.83-4.51); Lymphocyte % 16.7 % (19-41); Mean Corp Hgb Conc 33.3 g/dL (32-36); Mean Corpuscular Hgb 31.5 pg (27.0-32.0); Mean Corpuscular Volume 94.6 fL (81-99); Mean Platelet Vol. 9.8 fl (6.2-12.0); Monocyte# 0.87 X10^3/uL; Monocyte% 5.3 % (0-10); NRBC Flagged by Analyzer 0 % (0-5); Platelet Count 326 K/mm3 (150-450); RBC Distribution Width CV 13.7 % (11.6-14.6); RBC Distribution Width SD 47.6 fl (35.1-43.9); Red Blood Count 4.28 M/mm3 (4.2-5.4); White Blood Count 16.5 K/mm3 (4.4-11.0)
[2021-10-10 05:08] LABS: AST(SGOT) 31 U/L (15-37); Alanine Aminotransfer ALT/SGPT 60 U/L (13-56); Albumin, Serum 3.2 g/dL (3.2-5.0); Alkaline Phosphatase 54 U/L (45-117); Anion Gap 7 (5-15); BUN 20 mg/dL (7-18); Calcium,Total 8.6 mg/dL (8.5-10.1); Chloride 104 mmol/L (98-107); Cholesterol 196 mg/dL (200); Creatinine, Serum 1.05 mg/dL (0.55-1.02); EST Glomerular Filtration Rate 54 mL/min (>60); Est Glom Filt Rate - Afr Amer 66 mL/min (>60); Estimated Creatinine Clearance 45.98 ml/min; Globulin 3.2 g/dL (2.2-4.2); Glucose 87 mg/dL (74-106); High Density Lipoprotein 71 mg/dL; Potassium 3.7 mmol/L (3.5-5.1); Protein, Total 6.4 g/dL (6.4-8.2); Sodium Level 136 mmol/L (136-145); T4 Free Direct 0.76 ng/dL (0.76-1.46); Triglycerides 186 mg/dL; Very Low Density Lipoprotein 37 mg/dL (5-40)
[2021-10-10 05:09] LABS: Troponin-I HS 1266 pg/mL (3.0-54.0)
--- NOTE | 2021-10-10 05:55 | EKG12_ITS ---
Test Reason : STEMI Blood Pressure : / mmHG Vent. Rate : 167 BPM Atrial Rate : 170 BPM P-R Int : 000 ms QRS Dur : 078 ms QT Int : 286 ms P-R-T Axes : 000 -20 038 degrees QTc Int : 477 ms Atrial fibrillation Abnormal ECG When compared with ECG of 11-AUG-2021 05:26, Atrial fibrillation has replaced Electronic ventricular pacemaker Vent. rate has increased BY 94 BPM Confirmed by JAYMIE POLANCO, BARBI ([id number]), subeditor CHAD CUEVA ([id number]) on 10/15/2021 11:25:40 AM Referred By: Jason Conroy Confirmed By:BARBI COON MD
[2021-10-10] MEDS: Amiodarone 200 MG Tablet PO ×2 (06:39→21:57)
[2021-10-10] MEDS: Metoprolol Tartrate 25 MG Tablet PO ×2 (06:39→22:06)
--- NOTE | 2021-10-10 07:07 | PCM.PN.HOSP ---
Subjective Subjective Patient is a 76-year-old lady with history of coronary artery disease who presented with palpitations. Was found to be in A. fib with RVR as well as elevated troponin admitted to the intensive care unit for subsequent management Objective Data Objective Data Vital Signs: Vital Signs Temp Pulse Resp BP Pulse Ox 96.9 F L 77 15 152/88 H 99 10/10/21 04:00 10/10/21 07:00 10/10/21 07:00 10/10/21 07:00 10/10/21 07:04 Oxygen Flow Rate (L/min) 2 Oxygen Delivery Method Room Air Weight: 73.2 kg Body Mass Index (BMI) 24.9 Intake & Output: Intake and Output for Last 24 Hours 10/08/21 10/09/21 10/10/21 23:59 23:59 23:59 Intake Total 103 / 1103 1084.7 / 1084.7 Output Total 850 / 850 0 / 0 Balance -747 / 253 1084.7 / 1084.7 Lab / Micro Data Result Diagrams: 10/10/21 04:28 10/10/21 04:28 Labs: Laboratory Results - last 24 hr 10/09/21 13:40: WBC 15.8 H, RBC 4.74, Hgb 15.2 H, Hct 45.6, MCV 96.2, MCH 32.1 H, MCHC 33.3, RDW Std Deviation 47.5 H, RDW Coeff of Eboni 13.3, Plt Count 360, MPV 9.8, Immature Gran % (Auto) 0.800, Neut % (Auto) 68.0, Lymph % (Auto) 25.3, [place] % (Auto) 5.0, Eos % (Auto) 0.6, Baso % (Auto) 0.3, Absolute Neuts (auto) 10.7 H, Absolute Lymphs (auto) 3.99, Nucleated RBC % 0 10/09/21 13:40: Sodium 136, Potassium 2.6 L*, Chloride 101, Carbon Dioxide 26.0, Anion Gap 9, BUN 23 H, Creatinine 1.21 H, Estim Creat Clear Calc 39.90, Est GFR (MDRD) Af Amer 56 L, Est GFR (MDRD) Non-Af 46 L, BUN/Creatinine Ratio 19.0, Glucose 159 H, Calcium 9.7, Magnesium 1.8, Troponin I High Sens 55 H, TSH 4.23 H 10/09/21 13:40: PT 11.9, INR 0.9, APTT 21.8 L 10/09/21 15:55: Troponin I High Sens 459 H* 10/09/21 20:22: Sodium 139, Potassium 4.1, Chloride 107, Carbon Dioxide 26.0, Anion Gap 6, BUN 19 H, Creatinine 1.22 H, Estim Creat Clear Calc 39.57, Est GFR (MDRD) Af Amer 55 L, Est GFR (MDRD) Non-Af 46 L, BUN/Creatinine Ratio 15.6, Glucose 144 H, Calcium 9.0 10/09/21 20:22: Troponin I High Sens 1536 H* 10/10/21 01:54: APTT 125.3 H* 10/10/21 04:28: WBC 16.5 H, RBC 4.28, Hgb 13.5, Hct 40.5, MCV 94.6, MCH 31.5, MCHC 33.3, RDW Std Deviation 47.6 H, RDW Coeff of Eboni 13.7, Plt Count 326, MPV 9.8, Immature Gran % (Auto) 0.400, Neut % (Auto) 77.0 H, Lymph % (Auto) 16.7 L, [place] % (Auto) 5.3, Eos % (Auto) 0.3, Baso % (Auto) 0.3, Absolute Neuts (auto) 12.7 H, Absolute Lymphs (auto) 2.76, Nucleated RBC % 0 10/10/21 04:28: Sodium 136, Potassium 3.7, Chloride 104, Carbon Dioxide 25.0, Anion Gap 7, BUN 20 H, Creatinine 1.05 H, Estim Creat Clear Calc 45.98, Est GFR (MDRD) Af Amer 66, Est GFR (MDRD) Non-Af 54 L, BUN/Creatinine Ratio 19.0, Glucose 87, Calcium 8.6, Total Bilirubin 0.50, AST 31, ALT 60 H, Alkaline Phosphatase 54, Total Protein 6.4, Albumin 3.2, Globulin 3.2, Albumin/Globulin Ratio 1.0, Triglycerides 186, Cholesterol 196, LDL Cholesterol 88, VLDL Cholesterol 37, HDL Cholesterol 71, Free T4 0.76 10/10/21 04:28: Troponin I High Sens 1266 H* Radiography Diagnostic Testing: Radiology Impression Chest X-Ray 10/09/21 13:50 IMPRESSION: No acute abnormality is seen. Electronically Signed: Hardik Montana MD at 14:07 EST , Echocardiogram 10/09/21 14:56 Interpretation Summary The study was technically difficult. Mild global left ventricular systolic dysfunction. The estimated ejection fraction is 45 %. Sigmoid septum. There is mild mitral annular calcification. Mild focal mitral valve calcification of the anterior leaflet. Mild-Moderate (1-2+) eccentric mitral valve insufficiency. Trivial tricuspid valve insufficiency. Right ventricular systolic pressure estimated to be 24 mmHg. Unable to assess diastolic dysfunction. Ordering Physician: Yady Kumar Referring Physician: Jennie Turk Performed By: Sherri Marte, MARYCHUY, RVT Physical Exam Narrative GENERAL: cooperative HEENT: Atraumatic; EYES; Anicteric, Normal Conjunctiva NECK; supple, normal thyroid, RESPIRATORY: Diminished to auscultation CARDIOVASCULAR: Regular S1 S2, GI: soft, normoactive bowel sounds, : No Renal angle tenderness; EXTREMITIES: No edema, no clubbing, MUSCULOSKELETAL: no muscle wasting NEURO: Awake; no lateralizing signs. SKIN: No Rash PSYCH; Flat affect Assessment & Plan Assessment/Plan (1) Atrial fibrillation with RVR: PLAN: Patient is a 76-year-old lady with history of coronary artery disease who presented with palpitations. Was found to be in A. fib with RVR as well as elevated troponin admitted to the intensive care unit for subsequent management 1. New onset A. fib ?Admitted to the intensive care unit patient started on amiodarone drip with consultation placed to cardiology. Patient was deemed to be high risk for stroke based on her [id number]. Plan is for patient to be transitioned to Eliquis 2. Acute non-STEMI It was an initial suspicion of possible STEMI however this was ruled out.. Patient started on heparin admitted to the intensive care unit with consultation placed to cardiology. Patient ready on antiplatelet therapy with Effient beta-blockers. Patient was discharged on atorvastatin currently not on her list of medication. Case discussed with cardiology plan is for patient to undergo repeat left heart catheterization 3. Coronary artery disease ?With recent history of STEMI on 08/08/2021. Patient underwent successful PCI with MIC to LAD PTCA site diagonal branch as well as RCA lesion. Echo noted EF to be 40 to45% 4. Acute hypertensive urgency ?Patient home medications continued in addition to IV hydralazine. Monitor in ICU 6. Dyslipidemia -Patient is on statin therapy, continued at home dose 7. Allergic rhinitis 8. DVT prophylaxis on heparin Charges/Coding Visit Charges Inpatient E&M: 60756 [facility] Hosp L3
[2021-10-10 08:07] LABS: Hemoglobin A1c 5.5 % (3.8-5.6)
[2021-10-10] MEDS: predniSONE 5 MG Tablet PO (08:33)
[2021-10-10] MEDS: 0.9% Saline Lock 10 ML Syringe IV (08:33)
--- NOTE | 2021-10-10 10:11 | PN.CARD_ITS ---
Documented by User: SAVANA Taylor 10/10/21 12:52 Subjective Subjective This is a 76-year-old female that presented to the emergency room with atrial fibrillation with RVR. Patient note noted that symptoms started and she noted that her heart was racing. She then called the squad and was brought to the emergency room. She was admitted for atrial fibrillation with RVR and a non- STEMI. She does have a history of coronary artery disease with PCI and stenting to her LAD, PTCA of D1 and RCA of the TELEVISION SPECIALIST on 08/08/2021 when she was urgently cath for a STEMI. During that hospital stay she did a hypertensive emergency and flash pulmonary edema and required intubation. It was noted that she did have a decreased EF of 40-45%. Repeat echo yesterday demonstrated similar findings. Currently she does not have any chest pain/SOB or feel that her heart is racing. She is anxious about proceeding with heart cath. She is requesting to talk to Dr. Coates. Did spend time with her explaining this and answering her questions. Objective Data Vital Signs: Vital Signs Temp Pulse Resp BP Pulse Ox 97.2 F L 71 17 145/87 H 100 10/10/21 08:00 10/10/21 09:00 10/10/21 09:00 10/10/21 09:00 10/10/21 09:00 Oxygen Flow Rate (L/min) 2 Oxygen Delivery Method Room Air Weight: 161 lb 6.054 oz Body Mass Index (BMI) 24.9 Intake & Output: Intake and Output for Last 24 Hours 10/08/21 10/09/21 10/10/21 23:59 23:59 23:59 Intake Total 103 / 1103 1110.3 / 1110.3 Output Total 850 / 850 300 / 300 Balance -747 / 253 810.3 / 810.3 Lab / Micro Data Result Diagrams: 10/10/21 04:28 10/10/21 04:28 Labs: Laboratory Results - last 24 hr 10/09/21 13:40: WBC 15.8 H, RBC 4.74, Hgb 15.2 H, Hct 45.6, MCV 96.2, MCH 32.1 H , MCHC 33.3, RDW Std Deviation 47.5 H, RDW Coeff of [place] 13.3, Plt Count 360, MPV 9.8, Immature Gran % (Auto) 0.800, Neut % (Auto) 68.0, Lymph % (Auto) 25.3, [place] % (Auto) 5.0, Eos % (Auto) 0.6, Baso % (Auto) 0.3, Absolute Neuts (auto) 10.7 H, Absolute Lymphs (auto) 3.99, Nucleated RBC % 0 10/09/21 13:40: Sodium 136, Potassium 2.6 L*, Chloride 101, Carbon Dioxide 26.0, Anion Gap 9, BUN 23 H, Creatinine 1.21 H, Estim Creat Clear Calc 39.90, Est GFR (MDRD) Af Amer 56 L, Est GFR (MDRD) Non-Af 46 L, BUN/Creatinine Ratio 19.0, Glucose 159 H, Calcium 9.7, Magnesium 1.8, Troponin I High Sens 55 H, TSH 4.23 H 10/09/21 13:40: PT 11.9, INR 0.9, APTT 21.8 L 10/09/21 15:55: Troponin I High Sens 459 H* 10/09/21 20:22: Sodium 139, Potassium 4.1, Chloride 107, Carbon Dioxide 26.0, Anion Gap 6, BUN 19 H, Creatinine 1.22 H, Estim Creat Clear Calc 39.57, Est GFR (MDRD) Af Amer 55 L, Est GFR (MDRD) Non-Af 46 L, BUN/Creatinine Ratio 15.6, Glucose 144 H, Calcium 9.0 10/09/21 20:22: Troponin I High Sens 1536 H* 10/10/21 01:54: APTT 125.3 H* 10/10/21 04:28: WBC 16.5 H, RBC 4.28, Hgb 13.5, Hct 40.5, MCV 94.6, MCH 31.5, MCHC 33.3, RDW Std Deviation 47.6 H, RDW Coeff of [place] 13.7, Plt Count 326, MPV 9.8, Immature Gran % (Auto) 0.400, Neut % (Auto) 77.0 H, Lymph % (Auto) 16.7 L, [place] % (Auto) 5.3, Eos % (Auto) 0.3, Baso % (Auto) 0.3, Absolute Neuts (auto) 12.7 H, Absolute Lymphs (auto) 2.76, Nucleated RBC % 0 10/10/21 04:28: Sodium 136, Potassium 3.7, Chloride 104, Carbon Dioxide 25.0, Anion Gap 7, BUN 20 H, Creatinine 1.05 H, Estim Creat Clear Calc 45.98, Est GFR (MDRD) Af Amer 66, Est GFR (MDRD) Non-Af 54 L, BUN/Creatinine Ratio 19.0, Glucose 87, Calcium 8.6, Total Bilirubin 0.50, AST 31, ALT 60 H, Alkaline Phosphatase 54, Total Protein 6.4, Albumin 3.2, Globulin 3.2, Albumin/Globulin Ratio 1.0, Triglycerides 186, Cholesterol 196, LDL Cholesterol 88, VLDL Cholesterol 37, HDL Cholesterol 71, Free T4 0.76 10/10/21 04:28: Hemoglobin A1c 5.5 10/10/21 04:28: Troponin I High Sens 1266 H* Cardiology Labs/Tests 10/09/21 13:40: WBC 15.8 H, RBC 4.74, Hgb 15.2 H, Hct 45.6, MCV 96.2, MCH 32.1 H , MCHC 33.3, Plt Count 360, MPV 9.8, Immature Gran % (Auto) 0.800, Neut % (Auto) 68.0, Lymph % (Auto) 25.3, [place] % (Auto) 5.0, Eos % (Auto) 0.6, Baso % (Auto) 0.3, Absolute Neuts (auto) 10.7 H, Nucleated RBC % 0 10/09/21 13:40: Sodium 136, Potassium 2.6 L*, Chloride 101, Carbon Dioxide 26.0, Anion Gap 9, BUN 23 H, Creatinine 1.21 H, Est GFR (MDRD) Af Amer 56 L, Est GFR (MDRD) Non-Af 46 L, BUN/Creatinine Ratio 19.0, Glucose 159 H, Calcium 9.7, Magnesium 1.8 10/09/21 13:40: PT 11.9, INR 0.9, APTT 21.8 L 10/09/21 20:22: Sodium 139, Potassium 4.1, Chloride 107, Carbon Dioxide 26.0, Anion Gap 6, BUN 19 H, Creatinine 1.22 H, Est GFR (MDRD) Af Amer 55 L, Est GFR (MDRD) Non-Af 46 L, BUN/Creatinine Ratio 15.6, Glucose 144 H, Calcium 9.0 10/10/21 01:54: APTT 125.3 H* 10/10/21 04:28: WBC 16.5 H, RBC 4.28, Hgb 13.5, Hct 40.5, MCV 94.6, MCH 31.5, MCHC 33.3, Plt Count 326, MPV 9.8, Immature Gran % (Auto) 0.400, Neut % (Auto) 77.0 H, Lymph % (Auto) 16.7 L, [place] % (Auto) 5.3, Eos % (Auto) 0.3, Baso % (Auto) 0.3, Absolute Neuts (auto) 12.7 H, Nucleated RBC % 0 10/10/21 04:28: Sodium 136, Potassium 3.7, Chloride 104, Carbon Dioxide 25.0, Anion Gap 7, BUN 20 H, Creatinine 1.05 H, Est GFR (MDRD) Af Amer 66, Est GFR (MDRD) Non-Af 54 L, BUN/Creatinine Ratio 19.0, Glucose 87, Calcium 8.6, Total Bilirubin 0.50, Triglycerides 186, Cholesterol 196, LDL Cholesterol 88, VLDL Cholesterol 37, HDL Cholesterol 71 10/10/21 04:28: Hemoglobin A1c 5.5 Rhythm: SR HR 67 Radiography Diagnostic Testing: Radiology Impression Chest X-Ray 10/09/21 13:50 IMPRESSION: No acute abnormality is seen. Electronically Signed: Hardik Montana MD at 14:07 EST Reading Location ID and State: [facility] / [place] , Service support , Echocardiogram 10/09/21 14:56 Interpretation Summary The study was technically difficult. Mild global left ventricular systolic dysfunction. The estimated ejection fraction is 45 %. Sigmoid septum. There is mild mitral annular calcification. Mild focal mitral valve calcification of the anterior leaflet. Mild-Moderate (1-2+) eccentric mitral valve insufficiency. Trivial tricuspid valve insufficiency. Right ventricular systolic pressure estimated to be 24 mmHg. Unable to assess diastolic dysfunction. __ Ordering Physician: Yady Kumar Referring Physician: Jennie Turk Performed By: Sherri Marte, MARYCHUY, RVT Physical Exam Const alert, oriented x3, no apparent distress and average body habitus HEENT normocephalic and hearing grossly normal bilaterally Nose: external nose normal Mouth: oral and palatal mucosa normal Eyes PERRL, EOMs intact bilaterally, conjunctivae normal and no scleral icterus Neck full ROM Chest inspection of chest normal Resp normal respiratory effort, normal air movement and clear to auscultation bilaterally Cardio regular rate, regular rhythm, S1 normal heart sound, S2 normal heart sound, no murmurs, no rub, no gallops, no JVD and peripheral pulses 2+ throughout GI normal to inspection, nondistended, normoactive bowel sounds, soft to palpation, non-tender and non-distended Neuro oriented x3, CN's II-XII intact bilaterally and moves all extremities Assessment & Plan Assessment/Plan (1) New onset atrial fibrillation: (2) Elevated troponin: (3) Essential hypertension: (4) Presence of stent in coronary artery: (5) Ischemic cardiomyopathy: PLAN: * With elevated troponin would like to take patient to manager cardiac cath to evaluate previous placed stents. It appears that she was allergic to Brilinta but has a similar reaction to Effient with hives that has been controlled by prednisone that she has been taking mcc for for multiple reasons. Would like to switch her back to Brilinta and start on ASA.Would also like to restart her statin. * She does have a decreased EF that was noted with her previous echo from 08/06 that is similar during this admission. It appears she did not tolerate Coreg. She is currently on Metoprolol. Would like to continue with this. Would also consider losartan as she did not tolerate Lisinopril. * with her new onset of Afib, she does have a [id number] of 5, after her heart cath she should be considered for Eliquis, Xarelto or coumadin. Will need to monitor for bleeding as she will be on 2 antiplatelets and an anticoagulant. Would like to send home on a titrating dose on Amiodarone. She was hypokalemic on admission, this could have contributed to her Afib. * Blood pressure was elevated at admission. Currently is improved. Will continue with current medications and adjust accordingly. Charges/Coding Visit Charges Inpatient E&M: 02529 Subs Hosp L3 Documented by User: Dr. Jason Conroy MD 10/10/21 15:48 Lab / Micro Data Result Diagrams: 10/10/21 04:28 10/10/21 04:28 Assessment & Plan Assessment/Plan (1) Elevated troponin: (2) Essential hypertension: (3) Ischemic cardiomyopathy: (4) Atrial fibrillation with RVR: (5) Atherosclerotic heart disease of [place] coronary artery without angina pectoris: (6) Hypokalemia: PLAN: Cardiac care plan recommendations; I reviewed all the current evaluation here in the hospital including the diagnostic lab, the finding of cardiac catheterization, cardiac telemetry, the series of cardiac markers the telemetry and agree with the current plan and recommendation as documented by the midlevel. Patient has multiple allergies to medications including aspirin Plavix Brilinta and has been seen and followed by her furrier apprentice/allergy physician Patient underwent cardiac catheterization today which showed left main normal angiographically, patency of the LAD stent and RCA stent Ostial and proximal diagonal branch/D1 stenosis around 90% with a GONZALEZ-3 flow and intermediate lesion in the proximal left circumflex as well as OM1 as well as focal lesion in the mid posterolateral branch Echocardiographic evaluation showed ejection fraction from 45% He has been stable clinically with trending of the troponin level and no symptoms of chest pain reported Her presentation with A. kailee with RVR and she is in sinus rhythm I discussed in detail with my colleague the primary production engine repairer Dr. Coates He will resume the care in the morning and he will discuss cardiac care plan and recommendation for long-term.
--- NOTE | 2021-10-10 10:44 | PCM.OP.PRO ---
Procedure Report Date of Procedure: 10/10/21 Left heart catheterization 1. Right radial artery approach with placement of 6 [place] sheath in the right radial artery 2. Use of cocktail of, heparin as well as nitroglycerin and verapamil through the right radial artery sheath 3. Selective left coronary angiography 4. Selective right cholangiography 5. Placement of TR band to close the right radial artery arteriotomy site. Consent; Risk and benefit of procedure explained in detail to the patient by her primary medical billing assistant Dr. Coates And informed consent obtained. Preprocedure diagnosis; 76-year-old patient presented with symptoms of palpitation, noted to have A. fib with RVR, started amiodarone converted to normal sinus rhythm Patient had history of allergy and she follow-up with her pairing machine operator/physician. She had a history of CAD with a PCI stent of LAD and RCA with a PTCA of sidebranch diagonal. She had no symptoms of chest pain however she has elevated cardiac biomarker with high sensitive troponin with a clinical diagnosis of non-ST elevation PA/A. fib with RVR converted to normal sinus. Echocardiographic evaluation showed ejection fraction 45% with mild to moderate MR. Diagnostic catheter used; 1. Thermal 6 [place] sheath in the right radial artery 2. 5 [place] catheter. Procedure in detail; Under fluoroscopic guidance we will proceed with 5 [place] catheter advanced ascending aorta, cannulated the left main without difficulty, following this multiple views of the left coronary system were obtained including CELE cranial and caudal as well as MAN cranial and caudal views Findings same 5 [place]itian [place] catheter was used to cannulate the right coronary ostium and a single view of the RCA was obtained to minimize the risk of contrast-induced nephropathy as her baseline creatinine was around 1.2 Following this all angiographic views were restarted and discussed with Dr. Coates the primary medical billing assistant Finding of cholangiography; 1. Left main coronary artery normal angiographically bifurcating into LAD and left circumflex 2. Left anterior descending stent is patent/mid LAD, with ostial and proximal lesion involving the sidebranch which is patent D1 3. Intermediate lesion noted in the proximal circumflex diffuse atherosclerosis of around 60% as well involving the M1 branch with diffuse atherosclerosis of 60%. 4. RCA mid stent is patent large vessel, dominant, focal lesion noted in the mid right posterolateral branch. Conclusion and recommendation; This patient had no symptoms of chest pain she had A. fib with RVR converted to sinus rhythm She had allergy to aspirin and she could not tolerate Plavix and Brilinta and currently she is on Effient 10 mg once a day As well she could not tolerate the statin atorvastatin. Medication discussed in detail with the primary medical billing assistant Dr. Coates patient will read need additional anticoagulation with Eliquis And will need to continue on the DAPT currently Effient possible adding low-dose aspirin if she can tolerate. According to history she has seen her pairing machine operator and she had been on prednisone. Discussion regarding evaluation with a nuclear stress test to assess for myocardial ischemia and consider further plan as an outpatient based on her clinical presentation and her tolerance to the current medication Risk assessment and she will be seen by her primary medical billing assistant prior to discharge on this admission. I discussed the cardiac care plan and decision of the cardiac team myself and Dr. Woods with the family her son. Patient tolerated the procedure well with no complication in the Home Health Care Case Manager TR band applied to right radial artery site. Jason Conroy MD,FACC,[facility]
[2021-10-10] MEDS: CROMOLYN SODIUM 20 MG/ML 200 MG PO ×3 (11:50→21:57)
[2021-10-10] MEDS: Hydrocortisone 2.5% Crm 1 APPLIC TOPICAL (12:30)
[2021-10-10] MEDS: prednisoLONE eye drops (1 mL) 1 DROP OPTH.BTL 1 DRP RIGHT EYE (12:31)
[2021-10-10] MEDS: NITROFURANTOIN MACROCRYSTAL 50 MG CAPSULE PO (12:32)
[2021-10-10] MEDS: Loratadine 10 MG Tablet PO (12:33)
[2021-10-10] MEDS: Estrogens,Conj. 0.625 MG Tablet PO (12:34)
[2021-10-10] MEDS: Triamterene 37.5MG/Hctz 25MG Capsule 1 CAP PO (12:35)
[2021-10-10] MEDS: Hydrocortisone 25 MG Suppository RC ×2 (12:39→22:00)
[2021-10-10] MEDS: APIXABAN 5 MG TABLET PO ×2 (13:15→22:06)
[2021-10-10] MEDS: Losartan Potassium 25 MG Tablet PO (13:15)
--- NOTE | 2021-10-10 13:20 | CHAPLAIN ---
Type of Pastoral Visit ___ Initial Visit _x__ Follow-up Visit ___ On-call Visit ___ General Patient Visit ___ Spiritual Assessment ___ Family Conference ___ Bereavement ___ Rapid Response ___ Code Blue ___ Other (describe below) Pastoral Care Referral From _x__ Patient ___ Family ___ Nurse ___ Physician ___ Field Service Technician ___ Gut Puller ___ Other (describe below) Sacrament/Intervention _x__ Active listening ___ Anointing ___ Bahai ___ Bereavement ___ Communion _x__ Che exploration ___ _x__ Life review _x__ Prayer ___ Reconciliation ___ Sacrament of Sick _x__ Supportive presence ___ Wedding ___ Other (describe below) Pastoral Comments patient had exhibited some anxiety over procedures and potential outcomes; sat with patient and she verbalized her thoughts, feelings, and past history of concern; pt is and has just one son as primary support; patient reviewed her mormonism beliefs and her support; presence given along with time to process thoughts; patient is notably calmer at this time
[2021-10-11 04:05] VITALS: BP 132/82; PULSE 83; PULSE 89; RESP 18; TEMP 36.3; O2SAT 98
[2021-10-11 07:00] VITALS: PULSE 66
[2021-10-11 07:36] VITALS: O2SAT 95
--- NOTE | 2021-10-11 07:46 | PN.HOSP_ITS ---
Subjective Subjective Patient left heart catheterization performed the day prior demonstrated a patent stents. Cardiology recommended optimization of medical therapy with initiation of amiodarone 200 mg and metoprolol 25 mg twice daily. Cardiology recommended for patient to be on Eliquis she however was hesitant given her bleeding hem orrhoids she understood the risk Objective Data Objective Data Vital Signs: Vital Signs Temp Pulse Resp BP Pulse Ox 97.4 F L 66 18 132/82 H 95 10/11/21 04:05 10/11/21 07:00 10/11/21 04:05 10/11/21 04:05 10/11/21 07:36 Oxygen Flow Rate (L/min) 2 Oxygen Delivery Method Room Air Weight: 73.2 kg Body Mass Index (BMI) 24.9 Intake & Output: Intake and Output for Last 24 Hours 10/09/21 10/10/21 10/11/21 23:59 23:59 23:59 Intake Total 103 / 1103 1855.3 / 1855.3 120 / 120 Output Total 850 / 850 501 / 501 Balance -747 / 253 1354.3 / 1354.3 120 / 120 Lab / Micro Data Result Diagrams: 10/10/21 04:28 10/10/21 04:28 Labs: Laboratory Results - last 24 hr 10/10/21 04:28: Hemoglobin A1c 5.5 Physical Exam Narrative GENERAL: cooperative HEENT: Atraumatic; EYES; Anicteric, Normal Conjunctiva NECK; supple, normal thyroid, RESPIRATORY: Diminished to auscultation CARDIOVASCULAR: Regular S1 S2, GI: soft, normoactive bowel sounds, : No Renal angle tenderness; EXTREMITIES: No edema, no clubbing, MUSCULOSKELETAL: no muscle wasting NEURO: Awake; no lateralizing signs. SKIN: No Rash PSYCH; Flat affect Assessment & Plan Assessment/Plan (1) Atrial fibrillation with RVR: PLAN: Patient is a 76-year-old lady with history of coronary artery disease who presented with palpitations. Was found to be in A. fib with RVR as well as elevated troponin admitted to the intensive care unit for subsequent ma nagement 1. New onset A. fib ?Admitted to the intensive care unit patient started on amiodarone drip with consultation placed to cardiology. Patient was deemed to be high risk for stroke based on her [id number]. Plan is for patient to be transitioned to Eliquis ?10/11/2021; cardiology recommended for patient to be on Eliquis she however was hesitant given her bleeding hemorrhoids she understood the risk patient was started on amiodarone 200 mg and metoprolol 25 mg twice daily 2. Acute non-STEMI It was an initial suspicion of possible STEMI however this was ruled out.. Patient started on heparin admitted to the intensive care unit with consultation placed to cardiology. Patient ready on antiplatelet therapy with Effient beta- blockers. Patient was discharged on atorvastatin currently not on her list of medication. Case discussed with cardiology plan is for patient to undergo re peat left heart catheterization -10/11/2021 Patient left heart catheterization performed the day prior demonstrated a patent stents. Cardiology recommended optimization of medical therapy with initiation of amiodarone 200 mg and metoprolol 25 mg twice daily. Cardiology recommended for patient to be on Eliquis she however was hesitant given her bleeding hemorrhoids she understood the risk 3. Coronary artery disease ?With recent history of STEMI on 08/08/2021. Patient underwent successful PCI with MIC to LAD PTCA site diagonal branch as well as RCA lesion. Echo noted EF to be 40 to45% 4. Acute hypertensive urgency ?Patient home medications continued in addition to IV hydralazine. Monitor in ICU 6. Dyslipidemia -Patient is on statin therapy, continued at home dose 7. Allergic rhinitis 8. DVT prophylaxis on heparin Charges/Coding Visit Charges Inpatient E&M: 19850 Subs Hosp L2
[2021-10-11] MEDS: NITROFURANTOIN MACROCRYSTAL 50 MG CAPSULE PO (08:05)
[2021-10-11] MEDS: predniSONE 5 MG Tablet PO (08:05)
[2021-10-11] MEDS: CROMOLYN SODIUM 20 MG/ML 200 MG PO (08:08)
[2021-10-11 09:10] VITALS: BP 159/75; PULSE 81; RESP 16; TEMP 36.8; O2SAT 99
[2021-10-11] MEDS: Estrogens,Conj. 0.625 MG Tablet PO (09:11)
[2021-10-11 09:12] VITALS: PULSE 81
[2021-10-11] MEDS: Amiodarone 200 MG Tablet PO (09:12)
[2021-10-11] MEDS: Metoprolol Tartrate 25 MG Tablet PO (09:12)
[2021-10-11] MEDS: amLODIPine 2.5 MG Tablet 1.25 MG PO (09:12)
[2021-10-11] MEDS: Loratadine 10 MG Tablet PO (09:12)
--- NOTE | 2021-10-11 09:49 | PCM.PN.CARD ---
Documented by User: SAVANA Taylor 10/11/21 10:03 Subjective Subjective Pt has not had any further symptoms of CP/fast HR. She has multiple questions- several pages- and these were all answered. Objective Data Vital Signs: Vital Signs Temp Pulse Resp BP Pulse Ox 98.2 F 81 16 159/75 H 99 10/11/21 09:10 10/11/21 09:12 10/11/21 09:10 10/11/21 09:10 10/11/21 09:10 Oxygen Flow Rate (L/min) 2 Oxygen Delivery Method Room Air Weight: 161 lb 6.054 oz Body Mass Index (BMI) 24.9 Intake & Output: Intake and Output for Last 24 Hours 10/09/21 10/10/21 10/11/21 23:59 23:59 23:59 Intake Total 103 / 1103 1855.3 / 1855.3 120 / 120 Output Total 850 / 850 501 / 501 Balance -747 / 253 1354.3 / 1354.3 120 / 120 Lab / Micro Data Result Diagrams: 10/10/21 04:28 10/10/21 04:28 Cardiology Labs/Tests Rhythm: SR Physical Exam Const alert, oriented x3, no apparent distress and average body habitus HEENT normocephalic and hearing grossly normal bilaterally Nose: external nose normal Mouth: oral and palatal mucosa normal Eyes PERRL, EOMs intact bilaterally, conjunctivae normal and no scleral icterus Neck full ROM Chest inspection of chest normal Resp normal respiratory effort, normal air movement and clear to auscultation bilaterally Cardio regular rate, regular rhythm, S1 normal heart sound, S2 normal heart sound, no murmurs, no rub, no gallops, no JVD and peripheral pulses 2+ throughout GI normal to inspection, nondistended, normoactive bowel sounds, soft to palpation, non-tender and non-distended Extremity Extremity Narrative: bruising noted to right radial. Neuro oriented x3, CN's II-XII intact bilaterally and moves all extremities Assessment & Plan Assessment/Plan (1) New onset atrial fibrillation: (2) Elevated troponin: (3) Essential hypertension: (4) Presence of stent in coronary artery: (5) Ischemic cardiomyopathy: PLAN: With elevated troponin, pt dd undergo a heart cath, results demonstrated patent stent. Medical management was recommended. It appears that she was allergic to Brilinta but has a similar reaction to Effient with hives that has been controlled by prednisone that she has been taking terminal carman for for multiple reasons. Initially she felt that she did not tolerate Atorvastatin, however after long discussion, she feels that this was the brilinta. She will resume her atorvastatin. She does have a decreased EF that was noted with her previous echo from 08/06 that is similar during this admission. It appears she did not tolerate Coreg. She is currently on Metoprolol. Would like to continue with this. We did attempt to start losartan, she only received one dose, she is concerned about this medication. For now will hold this. may reconsider this in the future. would plan on repeat her echo on an OP basis to see if her EF has improved in approx 3 months. with her new onset of Afib, she does have a [id number] of 5. She has maintained SR while in the hospital. She is concerned about bleeding and her hemorrhoids. Since she this was her first episode of Atrial fib, agreeable to holding the Eliquis. She is aware of her risk. She is aware that if she returns to Afib that this will need to be resumed. Will d/c her home on Amiodarone 200 mg a day and Metoprolol 25 mg BID. Blood pressure was elevated at admission. Currently is improved. with her concerns of her hypokalemia, she will stop her dyazide. She will resume her low dose Norvasc of 1.25 mg. She notes that at home her Bp was controlled on this. Will monitor closely. Documented by User: Dr. Josias Coates MD 10/11/21 11:33 Lab / Micro Data Result Diagrams: 10/10/21 04:28 10/10/21 04:28 Assessment & Plan Addt'l Comments Addendum: The patient was independently evaluated/examined. The patient appears to be resting comfortably at this time. Her main focus this morning is on her medications, allergies, and her hemorrhoidal issues. She denies any ongoing issues of chest discomfort, difficulty breathing, or palpitations. On examination her lungs appear to be clear to auscultation bilaterally. Her cardiovascular exam demonstrates a regular rhythm with a normal S1 and S2. Her right upper extremity demonstrates in the right forearm an area of ecchymoses with no obvious hematoma and no obvious findings compatible with vascular compromise. Her cardiac rhythm has remained sinus rhythm. A lengthy discussion (60 minutes) was held with the patient regarding her cardiovascular concerns, her overall medical condition, her medications, or allergies, etc. Status post this discussion the patient was agreeable to continuing medical therapy and a stepwise fashion to monitor for any additional allergic reactions. Thus at the present time the patient is going to continue her antiplatelet therapy, she is going to initiate beta-josh therapy, she is going to initiate antiarrhythmic therapy, she is going to place her diuretic therapy which she states she only uses as needed on hold, she is hopeful to avoid potassium supplements as the are not well tolerated, she does not want to initiate additional medications such as FARAZ inhibitors or ARB's at this time, she is agreeable to restarting her amlodipine therapy at her previous low dose of 1.25 mg p.o. daily and restarting her lipid-lowering therapy of atorvastatin at 20 mg p.o. daily. She states she cannot tolerate aspirin and she has been in contact with her head greenskeeper who now refuses to desensitize her from aspirin based upon her cardiovascular condition. She is agreeable to future outpatient follow-up. She will check with her PCP with respect to laboratory follow-up to monitor her potassium level. She is agreeable to future outpatient cardiovascular follow-up and cardiovascular studies such as an echocardiogram to monitor her left ventricular wall motion and systolic function. She is going to continue to follow with her head greenskeeper with respect to her multiple allergies, etc. The patient's case was discussed and reviewed with SAVANA To. The patient's case was also discussed and reviewed with Dr. Novak. This note was generated using a voice recognition system and there may be incorrect words, spelling or punctuation that were not noted when reviewing the office note prior to saving.
--- NOTE | 2021-10-11 10:58 | DS.PCM_ITS ---
Providers Date of Admission: 10/09/21 Primary Care Physician: Dr. Jennie Turk MD Consultations 10/09/21 14:56 Consult: Cardiology Routine Consulting Provider: Jason Conroy Reason for Consult: PAF RVR, initial concern STEMI EMERGENT Consult: No MD Notified: Yes Date Notified: 10/09/21 Time Notified: 13:46 Method of Notification: STEMI call initial, ED Reason For Visit: PAF WITH RVR, INITIAL CONCERN STEMI Diagnosis Discharge Diagnosis (1) Atrial fibrillation with RVR: Status: Acute Code(s): I48.91 - Unspecified atrial fibrillation Medications at Discharge Home Medications Premarin 0.625 mg PO DAILY 02/12/14 Gastrocrom 200 mg PO 4X/DAY 01/27/19 olopatadine 0.2 % eye drops 1 drp OPHTHALMIC (EYE) DAILY 01/02/21 hydrocortisone acetate 25 mg rectal suppository 25 mg ME BID PRN 08/20/21 budesonide 32 mcg/actuation nasal spray,aerosol 32 mcg INTRANASAL ONCE PRN 08/30/21 nitrofurantoin macrocrystal 50 mg capsule 50 mg PO DAILY cap 08/30/21 pot bicarb 344 mg-sod bicarb 1,050 mg-citric acid 1,000 mg efferv tab 1 tab PO Q4H PRN 08/30/21 prednisolone acetate 0.12 % eye drops,suspension 1 drp OPHTHALMIC (EYE) Q OTHER DAY ml 08/30/21 prednisone 5 mg tablet 5 mg PO DAILY tab 08/30/21 acetaminophen 1,000 mg PO DAILY PRN 10/09/21 cetirizine [Zyrtec] 10 mg PO DAILY 10/09/21 chlordiazepoxide-clidinium 1 cap PO DAILY PRN 10/09/21 amiodarone 200 mg PO DAILY #60 tab 10/11/21 amlodipine 1.25 mg PO DAILY #60 tab 10/11/21 atorvastatin 20 mg PO QHS #60 tab 10/11/21 metoprolol tartrate 25 mg PO BID #120 tab 10/11/21 prasugrel 10 mg tablet 10 mg PO DAILY #90 tab 10/11/21 Hospital Course Procedures Cardiac catheterization Summary of Care Provided Minutes Spent on Discharge: 35 Hospital Course: Patient is a 76-year-old lady with history of coronary artery disease who presented with palpitations. Was found to be in A. fib with RVR as well as elevated troponin admitted to the intensive care unit for subsequent management 1. New onset A. fib ?Admitted to the intensive care unit patient started on amiodarone drip with consultation placed to cardiology. Patient was deemed to be high risk for stroke based on her [id number]. Plan is for patient to be transitioned to Eliquis ?10/11/2021; cardiology recommended for patient to be on Eliquis she however was hesitant given her bleeding hemorrhoids she understood the risk patient was started on amiodarone 200 mg and metoprolol 25 mg twice daily 2. Acute non-STEMI It was an initial suspicion of possible STEMI however this was ruled out.. Patient started on heparin admitted to the intensive care unit with consultation placed to cardiology. Patient ready on antiplatelet therapy with Effient beta- blockers. Patient was discharged on atorvastatin currently not on her list of medication. Case discussed with cardiology plan is for patient to undergo repeat left heart catheterization -10/11/2021 Patient left heart catheterization performed the day prior demonstrated a patent stents. Cardiology recommended optimization of medical therapy with initiation of amiodarone 200 mg and metoprolol 25 mg twice daily. Cardiology recommended for patient to be on Eliquis she however was hesitant given her bleeding hemorrhoids she understood the risk 3. Coronary artery disease ?With recent history of STEMI on 08/08/2021. Patient underwent successful PCI with MIC to LAD PTCA site diagonal branch as well as RCA lesion. Echo noted EF to be 40 to45% 4. Acute hypertensive urgency ?Patient home medications continued in addition to IV hydralazine. Monitor in ICU 6. Dyslipidemia -Patient is on statin therapy, continued at home dose 7. Allergic rhinitis 8. DVT prophylaxis on heparin Physical Exam Narrative GENERAL: cooperative HEENT: Atraumatic; EYES; Anicteric, Normal Conjunctiva NECK; supple, normal thyroid, RESPIRATORY: Diminished to auscultation CARDIOVASCULAR: Regular S1 S2, GI: soft, normoactive bowel sounds, : No Renal angle tenderness; EXTREMITIES: No edema, no clubbing, MUSCULOSKELETAL: no muscle wasting NEURO: Awake; no lateralizing signs. SKIN: No Rash PSYCH; Flat affect Weight / BMI Weight Weight: 73.2 kg Body Mass Index (BMI) 24.9 ABG / Lab / Microbiology Data Result Diagrams: 10/10/21 04:28 10/10/21 04:28 D/C Instructions Discharge Diet: No restrictions Discharge Activity: Return to Normal Activity Call your doctor if you observe: Fever of 101 or Higher, Shortness of breath, Fainting spells and Chest pain Meaningful Use Info Meaningful Use Diagnoses (Choose all that apply): None applicable Discharge Plan Admission Admit Date/Time: 10/09/21 13:44 Attending Provider: Bautista Novak Primary Care Provider: Jennie Turk Consulting Providers: Jason Conroy Discharge Orders/Prescriptions Prescriptions: New atorvastatin 20 mg Tablet 20 mg PO QHS Qty: 60 RF: 0 amiodarone 200 mg Tablet 200 mg PO DAILY Qty: 60 RF: 0 amlodipine 2.5 mg Tablet 1.25 mg PO DAILY Qty: 60 RF: 0 metoprolol tartrate 25 mg Tablet 25 mg PO BID Qty: 120 RF: 0 Continued olopatadine [Pataday Once Daily Relief] 0.2 % drops 1 drp ophthalmic (eye) DAILY RF: 0 prednisolone acetate 0.12 % drops,suspension 1 drp ophthalmic (eye) Q OTHER DAY RF: 0 prednisone 5 mg tablet 5 mg PO DAILY RF: 0 [place] Gold 344-1,050-1,000 mg tablet, effervescent 1 tab PO Q4H PRN (Reason: STOMACH) RF: 0 budesonide 32 mcg/actuation aerosol 32 mcg intranasal ONCE PRN (Reason: ALLERGIES) RF: 0 Premarin 0.625 MG tablet 0.625 mg PO DAILY RF: 0 Gastrocrom 200 mg PO 4X/DAY RF: 0 nitrofurantoin macrocrystal 50 mg capsule 50 mg PO DAILY RF: 0 cetirizine [Zyrtec] 10 mg Tablet 10 mg PO DAILY RF: 0 acetaminophen 500 mg Tablet 1,000 mg PO DAILY PRN (Reason: Pain) RF: 0 chlordiazepoxide-clidinium 5-2.5 mg capsule 1 cap PO DAILY PRN (Reason: Stomach Upset) RF: 0 hydrocortisone acetate 25 mg suppository 25 mg ME BID PRN (Reason: hemorrhoids) RF: 0 prasugrel [Effient] 10 mg tablet 10 mg PO DAILY Qty: 90 RF: 3 Discontinued triamterene-hydrochlorothiazid 37.5-25 mg capsule 1 cap PO DAILY PRN (Reason: Blood Pressure) RF: 0 Referrals / Follow Up: Jennie Turk MD [Primary Care Provider] - In 1 Week Josias Coates MD [STAFF PHYSICIAN] - Within 2 Weeks Disposition Disposition (needs filled in before D/C Order can be placed): Home, Self Care Charges/Coding Visit Charges Inpatient E&M: 96632 Disch Hosp
--- NOTE | 2021-10-11 12:00 | CASEMGMT ---
This RN CM to room to discuss discharge planning. Pt is A/Ox4. Pt states no concerns with going home at time of discharge. Pt states no need for any further therapy at discharge and is aware to contact PCP if she changes her mind once home, voices understanding. SStaten RN CM
[2021-10-11 13:02] VITALS: BP 153/76; PULSE 76; RESP 16; TEMP 36.9; O2SAT 100
== END 2021-10-11 15:21 | disposition home or self-care (01) | DRG 282 ==
LOC: ED 13:54 → ICU 14:08 → PCU 10-10 13:53
PROVIDERS: Admitting Provider Family Medicine; Emergency Provider Emergency Medicine; PCP Internal Medicine; Referring Provider Internal Medicine Interventional Cardiology; Visit Provider Internal Medicine
DX: I21.4 Non-ST elevation (NSTEMI) myocardial infarction (principal); E66.3 Overweight; I48.0 Paroxysmal atrial fibrillation; E78.5 Hyperlipidemia, unspecified; E87.6 Hypokalemia; I25.10 Atherosclerotic heart disease of native coronary artery without angina pectoris; I10 Essential (primary) hypertension; I16.0 Hypertensive urgency; J30.9 Allergic rhinitis, unspecified; I25.5 Ischemic cardiomyopathy; I25.2 Old myocardial infarction; Z68.28 Body mass index [BMI] 28.0-28.9, adult; G89.29 Other chronic pain; Z95.5 Presence of coronary angioplasty implant and graft
CPT/HCPCS: 71045; 80048; 80053; 80061; 83036; 83735; 84439; 84443; 84484; 85025; 85610; 85730; 93005; 93308; 93454; 99251; 99285; J7030; Q9957; Q9967; A4216; C1769; C1894; G0463

== ENCOUNTER 2021-10-14 17:12 | Emergency (ER) | payer MEDICARE, SELFPAY ==
[2021-10-14 17:13] VITALS: BP 161/92; PULSE 82; RESP 16; TEMP 35.8; O2SAT 100; BMI 24.5
--- NOTE | 2021-10-14 17:58 | EX.ED.DYSGE1 ---
HPI History of Present Illness Chief Complaint: Complaint Detail of Chief Complaint: In complete a voiding since last week Informant: patient Onset/Context/Timing Onset: Days Context: Sudden Onset Timing: Continuous Quality: Voiding small amounts and not voiding completely Location: Urinary bladder Current Severity: Severe Maximum Severity: Severe Worsened by: Cardiac medication: Per patient. Relieved by: Nothing Associated Symptoms Associated Symptoms: Suprapubic discomfort Narrative Narrative: Patient is an elderly woman who was recently admitted to the hospital. She is not been able to void completely since last week. She states when she was discharged the hospitalist was aware. She contacted her field contact technician. Bellman believes is due to one of her medications. She denies fever, chills night sweats. Denies nausea, vomiting diarrhea. She denies dysuria or hematuria. Prior similar symptoms: Yes Recent Illness/Hospitalization: Yes [facility] Medical History (Updated 10/14/21 @ 19:[address] Arvind Levy MD) Atherosclerotic heart disease of [place] coronary artery without angina pectoris Cellulitis Essential hypertension Fracture of metatarsal of left foot, closed History of carpal tunnel syndrome History of chronic back pain Myocardial infarct Non-STEMI (non-ST elevated myocardial infarction) Presence of stent in coronary artery (~08/08/21) Pulmonary edema Vocal cord granuloma Home Medications Premarin 0.625 mg PO DAILY 02/12/14 [History Last Taken 10/09/21] Gastrocrom 200 mg PO 4X/DAY 01/27/19 [History Last Taken 10/09/21] olopatadine 0.2 % eye drops 1 drp OPHTHALMIC (EYE) DAILY 01/02/21 [History Last Taken Unknown] hydrocortisone acetate 25 mg rectal suppository 25 mg OR BID PRN 08/20/21 [History Last Taken 10/09/21] budesonide 32 mcg/actuation nasal spray,aerosol 32 mcg INTRANASAL ONCE PRN 08/30/21 [History Last Taken Unknown] nitrofurantoin macrocrystal 50 mg capsule 50 mg PO DAILY cap 08/30/21 [History Last Taken 10/09/21] pot bicarb 344 mg-sod bicarb 1,050 mg-citric acid 1,000 mg efferv tab 1 tab PO Q4H PRN 08/30/21 [History Last Taken Unknown] prednisolone acetate 0.12 % eye drops,suspension 1 drp OPHTHALMIC (EYE) Q OTHER DAY ml 08/30/21 [History Last Taken 10/08/21] prednisone 5 mg tablet 5 mg PO DAILY tab 08/30/21 [History Last Taken 10/09/21] acetaminophen 1,000 mg PO DAILY PRN 10/09/21 [History Last Taken 10/08/21] cetirizine [Zyrtec] 10 mg PO DAILY 10/09/21 [History Last Taken 10/09/21] chlordiazepoxide-clidinium 1 cap PO DAILY PRN 10/09/21 [History Last Taken Unknown] atorvastatin 20 mg PO QHS #60 tab 10/11/21 [Rx Last Taken Unknown] metoprolol tartrate 25 mg PO BID #120 tab 10/11/21 [Rx Last Taken Unknown] prasugrel 10 mg tablet 10 mg PO DAILY #90 tab 10/11/21 [Rx Last Taken Unknown] Allergy/AdvReac Type Severity Reaction Status Date / Time aspirin Allergy Severe Tight in Verified 10/09/21 13:44 throat, Severe tinnitus, nosebleeds, dizzy. clopidogrel Allergy Intermediate Hives Verified 10/09/21 13:44 alprazolam [From Xanax] Allergy Unknown Unknown Verified 10/09/21 13:44 Vansant And Derivatives Allergy Unknown Unknown Verified 10/09/21 13:44 mushroom Allergy Unknown Unknown Verified 10/09/21 13:44 paroxetine [From Paxil] Allergy Unknown Unknown Verified 10/09/21 13:44 peanut Allergy Unknown Unknown Verified 10/09/21 13:44 ticagrelor [From Brilinta] Allergy Unknown unknown Verified 10/09/21 13:44 tolmetin [From Tolectin] Allergy Unknown Unknown Verified 10/09/21 13:44 Yeast Allergy Unknown Unknown Verified 10/09/21 13:44 acetaminophen Allergy Other Verified 10/09/21 13:44 [From Darvocet-N] codeine Allergy Other Verified 10/09/21 13:44 fluconazole [From Diflucan] Allergy Rash Verified 10/09/21 13:44 lidocaine Allergy Other Verified 10/09/21 13:44 meperidine HCl [From Demerol] Allergy Other Verified 10/09/21 13:44 metronidazole [From Metrogel] Allergy Rash Verified 10/09/21 13:44 Opioids - Morphine Analogues Allergy Other Verified 10/09/21 13:44 oxycodone HCl [From Percodan] Allergy Other Verified 10/09/21 13:44 oxycodone terephthalate Allergy Other Verified 10/09/21 13:44 [From Percodan] Penicillins Allergy Rash Verified 10/09/21 13:44 propoxyphene napsylate Allergy Other Verified 10/09/21 13:44 [From Darvocet-N] Sulfa (Sulfonamide Allergy Rash Verified 10/09/21 13:44 Antibiotics) amiodarone AdvReac Severe Severe Verified 10/14/21 16:09 urinary retention Beef Containing Products AdvReac Severe Unknown Verified 10/09/21 13:44 carvedilol AdvReac Severe Very Verified 10/09/21 13:44 lightheaded, Dizziness, floating on ceiling feeling. cheese AdvReac Mild Unknown Verified 10/09/21 13:44 egg AdvReac Unknown Unknown Verified 10/09/21 13:44 maltose AdvReac Unknown Unknown Verified 10/09/21 13:44 adhesive tape AdvReac Rash Verified 10/09/21 13:44 Cephalosporins AdvReac Shortness Verified 10/09/21 13:44 of breath cyclobenzaprine AdvReac NEEDS Verified 10/09/21 13:44 [From Flexeril] FOLLOW-UP epinephrine AdvReac NEEDS Verified 10/09/21 13:44 FOLLOW-UP estrogens, conjugated AdvReac NEEDS Verified 10/09/21 14:42 [From Premarin] FOLLOW-UP glycerin AdvReac Itching Verified 10/09/21 14:46 lisinopril AdvReac Shortness Verified 10/09/21 13:44 of breath midazolam [From Versed] AdvReac NEEDS Verified 10/09/21 13:44 FOLLOW-UP ofloxacin [From Floxin] AdvReac NEEDS Verified 10/09/21 13:44 FOLLOW-UP phenol AdvReac Shortness Verified 10/09/21 14:46 of breath salicylates AdvReac Shortness Verified 10/09/21 13:44 of breath spider venom AdvReac Nausea Verified 10/09/21 13:44 Dyes AdvReac Hallucinati Uncoded 10/09/21 13:44 on Family History Father Rheumatic heart disease Mother Cancer Other Allergies Asthma Surgical History H/O: hysterectomy History of D&C History of tonsillectomy History of tubal ligation Presence of coronary angioplasty implant and graft (~08/08/21) Social History household members: none Smoking Status: Never smoker alcohol intake: never substance use type: does not use diet: low salt and other what type of physical activity do you participate in: none seatbelt use: always do you feel safe at home: Yes additional social history: ROS ROS ED Constitutional Constitutional ED: Denies chills, fever(s), subjective, sweats or weight loss Eyes Eyes: Denies blurry vision or change in vision ENT ENT ED: Denies ear pain, rhinorrhea or sore throat Cardiovascular Cardiovascular: Denies chest pain or palpitations Respiratory/Chest Respiratory/Chest: Denies cough, dyspnea or dyspnea on exertion Gastrointestinal Gastrointestinal: Reports abdominal pain; Denies diarrhea, nausea or vomiting Genitourinary Genitourinary ED: Reports other Details: Per HPI ; Denies dysuria, hematuria or urinary frequency Musculoskeletal Musculoskeletal: Denies arthralgias, back pain, myalgias or neck pain Integumentary Denies Abrasions or rash Neurologic Neurologic: Denies headache(s), paresthesias or weakness Endocrine Endocrinology: Denies polydipsia, polyphagia or polyuria Allergic/Immunologic Allergic/Immunologic ED: Denies mouth swelling or urticaria EXAM Physical Exam Const Vital Signs: 10/14/21 17:13 Temperature 96.5 F L Temperature Source Temporal Pulse Rate 82 Respiratory Rate 16 Blood Pressure 161/92 H Blood Pressure Mean 115 Pulse Ox 100 Oxygen Delivery Method Room Air Positive well nourished, well developed and obese General Appearance ED: well developed and other Patient looks uncomfortable. ; Negative for NAD or pallor Nutritional Appearance: obese HEENT Reports moist mucous membranes Negative for trauma or tenderness Eyes PERRL and EOMs intact bilaterally General Eye ED: Negative for pale conjunctiva Neck no lymphadenopathy, supple and no JVD Resp normal respiratory effort and clear to auscultation bilaterally Cardio regular rate, regular rhythm, S1 normal heart sound, S2 normal heart sound and no murmurs GI normal to inspection, nondistended, normoactive bowel sounds and non-distended; Negative for non-tender GI Narrative: The bladder is distended to percussion. Palpation: soft Back/Spine no CVA tenderness Thoracic Spine / Upper Back: Negative for paraspinal muscle tenderness Lumbar Spine / Lower Back: Negative for lumbar spinal tenderness Extremity normal to inspection General Extremety ED: Negative for tenderness Neuro oriented x3, CN's II-XII intact bilaterally and no sensory deficits noted Sensorium / Orientation: alert Motor Exam: strength 5/5 throughout Psych mental status grossly normal Skin no rashes or lesions noted General Skin Exam: Negative for jaundice or pallor MDM MDM MDM Narrative Medical decision making narrative: Suspect patient has urinary retention. Reyes was ordered. Basic metabolic panel was ordered to assess for renal function and UA to assess for proteinuria, hematuria and if there are any casts noted Lab Data Attestation: I reviewed the patient's lab results. Lab results narrative: There is no evidence of urinary tract infection. Creatinine slightly elevated. She has had elevated creatinines in the past. This is unchanged. There was greater in the 1000 cc of urine. She was sent home with a leg bag and referral to urology. Labs: Laboratory Results - last 24 hr 10/14/21 10/14/21 18:20 18:25 Sodium 138 Potassium 3.4 L Chloride 106 Carbon Dioxide 27.0 Anion Gap 5 BUN 22 H Creatinine 1.22 H Estim Creat Clear Calc 39.57 Est GFR (MDRD) Af Amer 55 L Est GFR (MDRD) Non-Af 46 L BUN/Creatinine Ratio 18.0 Glucose 106 Calcium 9.4 Urine Color Yellow Urine Clarity Clear Urine pH 6.0 Ur Specific [place] 1.015 Urine Protein Negative Urine Glucose (UA) Normal Urine Ketones Negative Urine Occult Blood Negative Urine Nitrite Negative Urine Bilirubin Negative Urine Urobilinogen Normal Ur Leukocyte Esterase Negative Urine RBC 0 SEEN Urine WBC 0 SEEN Ur Squamous Epith Cells 0 SEEN Urine Bacteria 0 SEEN Urine Mucus 0 SEEN Discharge Plan Triage Chief Complaint: Complaint ED Provider: Arvind Levy Dx/Rx/DC Orders Clinical Impression: Acute urinary retention, Chronic renal insufficiency Instructions: ED Reyes Catheter, Care, ED Urinary Retention, Female, ED Renal Insufficiency Prescriptions: No Action olopatadine [Pataday Once Daily Relief] 0.2 % drops 1 drp ophthalmic (eye) DAILY RF: 0 prednisolone acetate 0.12 % drops,suspension 1 drp ophthalmic (eye) Q OTHER DAY RF: 0 prednisone 5 mg tablet 5 mg PO DAILY RF: 0 Stephanie-Castalia Gold 344-1,050-1,000 mg tablet, effervescent 1 tab PO Q4H PRN (Reason: STOMACH) RF: 0 budesonide 32 mcg/actuation aerosol 32 mcg intranasal ONCE PRN (Reason: ALLERGIES) RF: 0 Premarin 0.625 MG tablet 0.625 mg PO DAILY RF: 0 Gastrocrom 200 mg PO 4X/DAY RF: 0 nitrofurantoin macrocrystal 50 mg capsule 50 mg PO DAILY RF: 0 cetirizine [Zyrtec] 10 mg Tablet 10 mg PO DAILY RF: 0 acetaminophen 500 mg Tablet 1,000 mg PO DAILY PRN (Reason: Pain) RF: 0 chlordiazepoxide-clidinium 5-2.5 mg capsule 1 cap PO DAILY PRN (Reason: Stomach Upset) RF: 0 atorvastatin 20 mg Tablet 20 mg PO QHS Qty: 60 RF: 0 metoprolol tartrate 25 mg Tablet 25 mg PO BID Qty: 120 RF: 0 hydrocortisone acetate 25 mg suppository 25 mg OR BID PRN (Reason: hemorrhoids) RF: 0 prasugrel [Effient] 10 mg tablet 10 mg PO DAILY Qty: 90 RF: 3 Primary Care Provider: Jennie Turk Referrals: Yanique Ramires MD [STAFF PHYSICIAN] - 3-5 Days Jennie Turk MD [Primary Care Provider] - Disposition Disposition: Home, Self Care
[2021-10-14 18:40] LABS: Bacteria 0 SEEN /hpf (None Seen); Mucous, Urine 0 SEEN /hpf (<or=2+); Red Blood Cells-Urine 0 SEEN /hpf (0-5); Squamous Epithelial Cells - UA 0 SEEN /hpf (5-10); White Blood Cells 0 SEEN /hpf (0-5)
[2021-10-14 18:43] LABS: Color, Urine Yellow (Yellow); Glucose, Dipstick Normal (Normal); Ketone-Dipstick Negative (Negative); Leukocyte Esterase-Dipstick Negative /ul (Negative); Nitrite-Dipstick Negative (Negative); Occult Blood-Urine Negative /ul (Negative); Protein-Dipstick Negative (Negative); Specific Gravity, Urine 1.015 (1.002-1.030); Urine Bilirubin Dipstick Negative (Negative); Urine Clarity Clear (Clear); Urine Urobilinogen Normal (Normal)
[2021-10-14 18:46] LABS: Anion Gap 5 (5-15); BUN 22 mg/dL (7-18); Calcium,Total 9.4 mg/dL (8.5-10.1); Chloride 106 mmol/L (98-107); Creatinine, Serum 1.22 mg/dL (0.55-1.02); EST Glomerular Filtration Rate 46 mL/min (>60); Est Glom Filt Rate - Afr Amer 55 mL/min (>60); Estimated Creatinine Clearance 39.57 ml/min; Glucose 106 mg/dL (74-106); Potassium 3.4 mmol/L (3.5-5.1); Sodium Level 138 mmol/L (136-145)
--- NOTE | 2021-10-14 20:36 | ED.RN ---
Answered multiple questions regarding [facility]. PT REALLY does not want a [facility] in [facility] or even the next few days. Emotional support given. WC to lobby.
== END 2021-10-14 20:37 | disposition home or self-care (01) ==
PROVIDERS: Emergency Provider Emergency Medicine; PCP Internal Medicine; Visit Provider Emergency Medicine
DX: R33.9 Retention of urine, unspecified (principal); I12.9 Hypertensive chronic kidney disease with stage 1 through stage 4 chronic kidney disease, or unspecified chronic kidney disease; I25.10 Atherosclerotic heart disease of native coronary artery without angina pectoris; N18.9 Chronic kidney disease, unspecified; M54.9 Dorsalgia, unspecified; G89.29 Other chronic pain; I25.2 Old myocardial infarction; Z95.5 Presence of coronary angioplasty implant and graft
CPT/HCPCS: 51702; 80048; 81001; 99284; A4216

== ENCOUNTER → 2021-12-24 | Outpatient (CLI) | payer MEDICARE, SELFPAY ==
[2021-12-24 14:19] LABS: Potassium 3.6 mmol/L (3.5-5.1)
== END | disposition home or self-care (01) ==
LOC: LAB 13:50
PROVIDERS: PCP Internal Medicine; Referring Provider Nurse Practitioner Family; Visit Provider Nurse Practitioner Family
DX: E87.6 Hypokalemia (principal)
CPT/HCPCS: 36415; 84132

== ENCOUNTER 2022-01-17 01:15 | Observation (INO) | payer MEDICARE, SELFPAY ==
[2022-01-17] VITALS (29 sets, daily range): BP systolic 113–224; BP diastolic 61–107; PULSE 83–122; RESP 12–43; TEMP 36.3–37.8; O2SAT 83–100; BMI 25.9; BMI 25.2
--- NOTE | 2022-01-17 01:30 | EKG12_ITS ---
Test Reason : SOB Blood Pressure : / mmHG Vent. Rate : 106 BPM Atrial Rate : 106 BPM P-R Int : 160 ms QRS Dur : 076 ms QT Int : 310 ms P-R-T Axes : 041 -28 047 degrees QTc Int : 411 ms Sinus tachycardia with Premature atrial complexes Anteroseptal infarct , age undetermined Abnormal ECG Confirmed by JAYMIE POLANCO, BARBI ([id number]), editor house organ CHAD CUEVA ([id number]) on 01/20/2022 12:55:08 PM Referred By: RU Confirmed By:BARBI COON MD
--- NOTE | 2022-01-17 01:30 | RAD_ITS ---
STUDY: X-RAY CHEST REASON FOR EXAM: Female, 76 years old. dypsnea TECHNIQUE: Single AP portable view of the chest. 1:44 AM. COMPARISON: Previous chest radiographs of 10/09/2021 and 08/08/2021. FINDINGS: Heart size remains within normal limits with normal pulmonary vasculature. Vascular remains minimally elongated. Numerous calcified granulomas are again noted within the left midlung indicating remote granulomatous infection. Peribronchial cuffing has developed indicating bronchial wall inflammation. Minimal streaky atelectasis noted within the left lower lung. Streaky and slightly patchy airspace disease has developed within the right lower lung since the prior study, suspicious for pneumonia. No pneumothorax or pleural effusion is identified. No acute osseous abnormality. There is no demonstrated abnormality of the visualized soft tissue structures of the upper abdomen. RAD/Chest 1 View (Portable) IMPRESSION: Interval development of peribronchial cuffing indicating bronchial wall inflammation/bronchitis. Interval development of minimal patchy pneumonia in the right lower lung. Electronically Signed: Sheng Duggan MD at 2:23 EDT ,
--- NOTE | 2022-01-17 01:31 | EDS_ITS ---
HPI History of Present Illness Chief Complaint: Shortness of Breath Detail of Chief Complaint: Short of breath that started few hours ago Informant: patient Narrative Narrative: Patient presents to the emergency department complaint shortness of breath for several hours. Patient also feels like her heart is fluttering. He has had similar fluttering at times with her anxiety. She feels like the symptoms are more severe than her regular anxiety. She denies any chest pain. She denies fever or recent illness but does states she has seasonal allergies. Denies recent surgery or travel. She does have history of coronary artery disease with 2 cardiac stents placed in July 2021. [facility] Medical History (Reviewed 11/01/21 @ 12:25 by Coy Marte PARTITION ASSEMBLY MACHINE OPERATOR, PARTITION ASSEMBLY MACHINE OPERATOR-C) Atherosclerotic heart disease of [place] coronary artery without angina pectoris Cellulitis Essential hypertension Fracture of metatarsal of left foot, closed History of carpal tunnel syndrome History of chronic back pain Myocardial infarct Non-STEMI (non-ST elevated myocardial infarction) Presence of stent in coronary artery (~08/08/21) Pulmonary edema Vocal cord granuloma Home Medications Premarin 0.625 mg PO DAILY 02/12/14 [History Last Taken 10/09/21] Gastrocrom 200 mg PO 4X/DAY 01/27/19 [History Last Taken 10/09/21] olopatadine 0.2 % eye drops 1 drp OPHTHALMIC (EYE) DAILY 01/02/21 [History Last Taken Unknown] hydrocortisone acetate 25 mg rectal suppository 25 mg VA BID PRN 08/20/21 [History Last Taken 10/09/21] budesonide 32 mcg/actuation nasal spray,aerosol 32 mcg INTRANASAL ONCE PRN 08/30/21 [History Last Taken Unknown] nitrofurantoin macrocrystal 50 mg capsule 50 mg PO DAILY cap 08/30/21 [History Last Taken 10/09/21] pot bicarb 344 mg-sod bicarb 1,050 mg-citric acid 1,000 mg efferv tab 1 tab PO Q4H PRN 08/30/21 [History Last Taken Unknown] prednisolone acetate 0.12 % eye drops,suspension 1 drp OPHTHALMIC (EYE) Q OTHER DAY ml 08/30/21 [History Last Taken 10/08/21] prednisone 5 mg tablet 5 mg PO DAILY tab 08/30/21 [History Last Taken 10/09/21] acetaminophen 1,000 mg PO DAILY PRN 10/09/21 [History Last Taken 10/08/21] cetirizine [Zyrtec] 10 mg PO DAILY 10/09/21 [History Last Taken 10/09/21] chlordiazepoxide-clidinium 1 cap PO DAILY PRN 10/09/21 [History Last Taken Unknown] prasugrel 10 mg tablet 10 mg PO DAILY #90 tab 10/11/21 [Rx Last Taken Unknown] amlodipine 2.5 mg tablet 1.25 mg PO DAILY tab 10/30/21 [History Last Taken Unknown] triamterene 37.5 mg-hydrochlorothiazide 25 mg capsule 1 cap PO DAILY PRN 10/30/21 [History Last Taken Unknown] metoprolol tartrate 25 mg tablet 12.5 mg PO BID tab 11/05/21 [History Last Taken Unknown] atorvastatin 20 mg tablet 20 mg PO QHS #60 tab 12/19/21 [Rx Last Taken Unknown] potassium chloride 10 mEq tablet,extended release 5 meq PO .PRN PRN #45 tab 12/30/21 [Rx Last Taken Unknown] Allergy/AdvReac Type Severity Reaction Status Date / Time aspirin Allergy Severe Tight in Verified 11/01/21 11:48 throat, Severe tinnitus, nosebleeds, dizzy. clopidogrel Allergy Intermediate Hives Verified 11/01/21 11:48 alprazolam [From Xanax] Allergy Unknown Unknown Verified 11/01/21 11:48 [place] And Derivatives Allergy Unknown Unknown Verified 11/01/21 11:48 mushroom Allergy Unknown Unknown Verified 11/01/21 11:48 paroxetine [From Paxil] Allergy Unknown Unknown Verified 11/01/21 11:48 peanut Allergy Unknown Unknown Verified 11/01/21 11:48 ticagrelor [From Brilinta] Allergy Unknown unknown Verified 11/01/21 11:48 tolmetin [From Tolectin] Allergy Unknown Unknown Verified 11/01/21 11:48 Yeast Allergy Unknown Unknown Verified 11/01/21 11:48 acetaminophen Allergy Other Verified 11/01/21 11:48 [From Darvocet-N] codeine Allergy Other Verified 11/01/21 11:48 fluconazole [From Diflucan] Allergy Rash Verified 11/01/21 11:48 lidocaine Allergy Other Verified 11/01/21 11:48 meperidine HCl [From Demerol] Allergy Other Verified 11/01/21 11:48 metronidazole [From Metrogel] Allergy Rash Verified 11/01/21 11:48 Opioids - Morphine Analogues Allergy Other Verified 11/01/21 11:48 oxycodone HCl [From Percodan] Allergy Other Verified 11/01/21 11:48 oxycodone terephthalate Allergy Other Verified 11/01/21 11:48 [From Percodan] Penicillins Allergy Rash Verified 11/01/21 11:48 propoxyphene napsylate Allergy Other Verified 11/01/21 11:48 [From Darvocet-N] Sulfa (Sulfonamide Allergy Rash Verified 11/01/21 11:48 Antibiotics) amiodarone AdvReac Severe Severe Verified 11/01/21 11:48 urinary retention Beef Containing Products AdvReac Severe Unknown Verified 11/01/21 11:48 carvedilol AdvReac Severe Very Verified 11/01/21 11:48 lightheaded, Dizziness, floating on ceiling feeling. cheese AdvReac Mild Unknown Verified 11/01/21 11:48 egg AdvReac Unknown Unknown Verified 11/01/21 11:48 maltose AdvReac Unknown Unknown Verified 11/01/21 11:48 adhesive tape AdvReac Rash Verified 11/01/21 11:48 Cephalosporins AdvReac Shortness Verified 11/01/21 11:48 of breath cyclobenzaprine AdvReac NEEDS Verified 11/01/21 11:48 [From Flexeril] FOLLOW-UP epinephrine AdvReac NEEDS Verified 11/01/21 11:48 FOLLOW-UP estrogens, conjugated AdvReac NEEDS Verified 11/01/21 11:48 [From Premarin] FOLLOW-UP glycerin AdvReac Itching Verified 11/01/21 11:48 lisinopril AdvReac Shortness Verified 11/01/21 11:48 of breath midazolam [From Versed] AdvReac NEEDS Verified 11/01/21 11:48 FOLLOW-UP ofloxacin [From Floxin] AdvReac NEEDS Verified 11/01/21 11:48 FOLLOW-UP phenol AdvReac Shortness Verified 11/01/21 11:48 of breath salicylates AdvReac Shortness Verified 11/01/21 11:48 of breath spider venom AdvReac Nausea Verified 11/01/21 11:48 Dyes AdvReac Hallucinati Uncoded 11/01/21 11:48 on Family History Father Rheumatic heart disease Mother Cancer Other Allergies Asthma Surgical History H/O: hysterectomy History of D&C History of tonsillectomy History of tubal ligation Presence of coronary angioplasty implant and graft (~08/08/21) Social History household members: none Smoking Status: Never smoker alcohol intake: never substance use type: does not use diet: low salt and other what type of physical activity do you participate in: none seatbelt use: always do you feel safe at home: Yes additional social history: ROS ROS ED Constitutional Constitutional ED: Reports systems reviewed and no addt'l complaints, except as documented; Denies body ache(s), change in weight or chills Eyes Eyes: Denies acute decrease in peripheral vision, change in vision, double vision or loss of vision ENT ENT ED: Reports none; Denies ear pain, lip swelling, loss taste/smell, neck pain, otalgia or sore throat Cardiovascular Cardiovascular: Reports none and palpitations; Denies abdominal pain, chest pain, chest pain with activity, leg edema, lightheadedness, rapid heart rate or syncope Respiratory/Chest Respiratory/Chest: Reports none and dyspnea; Denies change in mental status, cough, dry cough, hemoptysis, shortness of breath at rest, shortness of breath with exertion or sputum Gastrointestinal Gastrointestinal: Reports none; Denies abdominal pain, change in stool character, diarrhea, hematemesis, hematochezia, melena, rectal bleeding or vomiting Genitourinary Genitourinary ED: Reports none; Denies abdominal discomfort, anuria, dysuria, genital pain or polyuria Musculoskeletal Musculoskeletal: Reports none; Denies arthralgias, back pain, difficulty walking, extremity pain, muscle weakness or myalgias Integumentary Reports none; Denies abscess or rash Neurologic Neurologic: Reports none; Denies abnormal gait, confusion, focal weakness, frequent falls, headache(s), loss of vision, numbness, paresthesias, radicular pain, vertigo or weakness Psychiatric Psychiatric: Reports systems reviewed and no addt'l complaints, except as documented and none; Denies behavioral changes, confusion, difficulty concentrating, hallucinations, suicidal ideation, tactile hallucinations or visual hallucinations Endocrine Endocrinology: Denies none, cold intolerance, excessive sweating, fatigue or heat intolerance Hematologic/Lymphatic Hematologic/Lymphatic: Reports none; Denies anemia, easy bleeding or easy bruising Allergic/Immunologic Allergic/Immunologic ED: Denies as per HPI, none, lip swelling, mouth swelling, throat swelling, tongue swelling or hives EXAM Physical Exam Const Vital Signs: 01/17/22 01:16 01/17/22 02:00 01/17/22 02:03 Temperature 97.9 F Temperature Source Temporal Pulse Rate 98 Respiratory Rate 16 Respiratory Effort Normal Non-Labored Respiratory Depth Normal Respiratory Pattern Tachypnea Blood Pressure 215/95 H Blood Pressure Mean 135 Pulse Ox 92 85 Oxygen Delivery Method Room Air Room Air Nasal Cannula Oxygen Flow Rate (L/min) 4 Fraction of Inspired Oxygen (FIO2) 01/17/22 02:07 01/17/22 02:15 01/17/22 02:54 Temperature Temperature Source Pulse Rate 121 H Respiratory Rate 26 H 26 H 25 H Respiratory Effort Respiratory Depth Respiratory Pattern Blood Pressure Blood Pressure Mean Pulse Ox 87 89 Oxygen Delivery Method Nasal Cannula Nasal Cannula Oxygen Flow Rate (L/min) 4 4 Fraction of Inspired Oxygen (FIO2) 01/17/22 03:00 01/17/22 03:07 01/17/22 03:13 Temperature Temperature Source Pulse Rate 111 H 109 H 113 H Respiratory Rate 43 H 31 H 34 H Respiratory Effort Respiratory Depth Respiratory Pattern Blood Pressure 224/103 H 215/107 H Blood Pressure Mean 143 143 Pulse Ox 83 84 96 Oxygen Delivery Method Nasal Cannula Venturi Mask Bi-pap Oxygen Flow Rate (L/min) 6 12 Fraction of Inspired Oxygen (FIO2) 50 40 01/17/22 03:20 01/17/22 03:22 01/17/22 03:41 Temperature Temperature Source Pulse Rate 122 H 112 H 120 H Respiratory Rate 38 H 28 H Respiratory Effort Respiratory Depth Respiratory Pattern Blood Pressure 215/107 H 187/82 H Blood Pressure Mean 117 Pulse Ox 98 95 Oxygen Delivery Method Bi-pap Oxygen Flow Rate (L/min) Fraction of Inspired Oxygen (FIO2) 40 40 01/17/22 04:43 01/17/22 04:48 Temperature 97.9 F Temperature Source Temporal Pulse Rate 105 H 102 H Respiratory Rate 20 H 20 H Respiratory Effort Respiratory Depth Respiratory Pattern Blood Pressure 174/79 H 148/76 H Blood Pressure Mean 110 100 Pulse Ox 98 98 Oxygen Delivery Method Bi-pap Bi-pap Oxygen Flow Rate (L/min) Fraction of Inspired Oxygen (FIO2) 40 40 Positive well nourished and well developed General Appearance ED: well developed and NAD HEENT Reports TM's clear and moist mucous membranes normocephalic and atraumatic; Negative for trauma or tenderness Tympanic Membrane ED: Yes TM's clear Eyes PERRL and EOMs intact bilaterally General Eye ED: Negative for pale conjunctiva or scleral icterus Neck no lymphadenopathy, supple and no JVD General: Negative for tenderness Chest Wall inspection of chest normal and palpation of chest normal Chest: Negative for tenderness Resp normal respiratory effort and clear to auscultation bilaterally Effort and Inspection: Negative for respiratory distress or pain with movement Auscultation: Negative for rhonchi, wheezes or diminished lung sounds Cardio regular rhythm, S1 normal heart sound, S2 normal heart sound and no murmurs Cardio Narrative: Occasional ectopy Rate: tachycardic Peripheral Pulses: pulses 2+ throughout GI normal to inspection, nondistended, normoactive bowel sounds, soft to palpation, non-tender, non-distended and no masses Back/Spine no CVA tenderness and no thoracic nor lumbar tenderness Extremity normal to inspection General Extremety ED: Negative for edema General Extremity: Negative for edema Neuro oriented x3, CN's II-XII intact bilaterally, no sensory deficits noted and gait normal Sensorium / Orientation: awake, alert, oriented to person, oriented to place and oriented to time Motor Exam: strength 5/5 throughout and strength abnormal Psych mental status grossly normal Skin no rashes or lesions noted and no wounds MDM MDM MDM Narrative Medical decision making narrative: IV line established on arrival. Patient initially stated that she always has high blood pressure when she sees the doctor therefore initially we gave her a dose of Librium to help with her anxiety. Her blood pressure did not improve and her O2 saturation began to drop into the 80s therefore she was started on oxygen by nasal cannula initially. Patient did have an elevated BNP and there was some concern for pulmonary edema therefore I started her on Lasix as well as an inch of Nitropaste. Patient was started on hydralazine 10 mg IV. Patient was started on BiPAP as nasal cannula O2 did not improve her O2 saturations. Patient had an elevated D-dimer there fore CT of the chest was ordered to rule out PE this will be pending. Patient's COVID-19 PCR test was positive. Case will be discussed with hospitalist evaluate patient for admission to ICU. Lab Data Attestation: I reviewed the patient's lab results. Labs: Laboratory Results - last 24 hr 01/17/22 01/17/22 01/17/22 01:25 01:25 01:25 WBC Cancelled Corrected WBC Cancelled RBC Cancelled Hgb Cancelled Hct Cancelled MCV Cancelled MCH Cancelled MCHC Cancelled RDW Std Deviation Cancelled RDW Coeff of Eboni Cancelled Plt Count Cancelled MPV Cancelled Immature Gran % (Auto) Cancelled Neut % (Auto) Cancelled Lymph % (Auto) Cancelled [place] % (Auto) Cancelled Eos % (Auto) Cancelled Baso % (Auto) Cancelled Absolute Neuts (auto) Cancelled Absolute Lymphs (auto) Cancelled Total Counted Cancelled Neutrophils % (Manual) Cancelled Band Neutrophils % Cancelled Lymphocytes % (Manual) Cancelled Monocytes % (Manual) Cancelled Eosinophils % (Manual) Cancelled Basophils % (Manual) Cancelled Metamyelocytes % Cancelled Myelocytes % Cancelled Promyelocytes % Cancelled Blast Cells % Cancelled Plasma Cell % (Manual) Cancelled Other Cells % Cancelled Nucleated RBC % Cancelled Nucleated RBCs/100 WBC Cancelled Differential Comment Cancelled Diff Path Review Cancelled Hypersegmented Neuts Cancelled Atypical Lymphocytes Cancelled Reactive Lymphocytes Cancelled Smudge Cells Cancelled Toxic Granulation Cancelled Toxic Vacuolation Cancelled Dohle Bodies Cancelled Aaron Rods Cancelled Platelet Estimate Cancelled Plt Morphology Comment Cancelled RBC Morphology Cancelled Polychromasia Cancelled Hypochromasia Cancelled Poikilocytosis Cancelled Basophilic Stippling Cancelled Anisocytosis Cancelled Microcytosis Cancelled Macrocytosis Cancelled Spherocytes Cancelled Sickle Cells Cancelled Target Cells Cancelled Tear Drop Cells Cancelled Ovalocytes Cancelled Stomatocytes Cancelled Jain-Torrey Bodies Cancelled Mansi Cells Cancelled Bite Cells Cancelled Crenated Cell Cancelled Acanthocytes (Spur) Cancelled Rouleaux Cancelled Schistocytes Cancelled D-Dimer Quant (PE/DVT) 1.94 H* Sodium 137 Potassium 3.9 Chloride 104 Carbon Dioxide 25.0 Anion Gap 8 BUN 15 Creatinine 1.02 Estim Creat Clear Calc 47.33 Est GFR (MDRD) Af Amer 68 Est GFR (MDRD) Non-Af 56 L BUN/Creatinine Ratio 14.7 Glucose 89 Calcium 9.2 Troponin I High Sens 16 B-Natriuretic Peptide COVID-19 (MARGARITA) 01/17/22 01/17/22 01/17/22 01:35 02:10 02:10 WBC 12.0 H Corrected WBC RBC 4.06 L Hgb 13.1 Hct 40.5 MCV 99.8 H MCH 32.3 H MCHC 32.3 RDW Std Deviation 47.6 H RDW Coeff of [place]boni 12.9 Plt Count 305 MPV 9.2 Immature Gran % (Auto) 0.600 Neut % (Auto) 84.9 H Lymph % (Auto) 7.9 L [place] % (Auto) 5.5 Eos % (Auto) 0.8 Baso % (Auto) 0.3 Absolute Neuts (auto) 10.2 H Absolute Lymphs (auto) 0.95 Total Counted Neutrophils % (Manual) Band Neutrophils % Lymphocytes % (Manual) Monocytes % (Manual) Eosinophils % (Manual) Basophils % (Manual) Metamyelocytes % Myelocytes % Promyelocytes % Blast Cells % Plasma Cell % (Manual) Other Cells % Nucleated RBC % 0 Nucleated RBCs/100 WBC Differential Comment Diff Path Review Hypersegmented Neuts Atypical Lymphocytes Reactive Lymphocytes Smudge Cells Toxic Granulation Toxic Vacuolation Dohle Bodies Aaron Rods Platelet Estimate Plt Morphology Comment RBC Morphology Polychromasia Hypochromasia Poikilocytosis Basophilic Stippling Anisocytosis Microcytosis Macrocytosis Spherocytes Sickle Cells Target Cells Tear Drop Cells Ovalocytes Stomatocytes Jain-Torrey Bodies [place] Cells Bite Cells Crenated Cell Acanthocytes (Spur) Rouleaux Schistocytes D-Dimer Quant (PE/DVT) Sodium Potassium Chloride Carbon Dioxide Anion Gap BUN Creatinine Estim Creat Clear Calc Est GFR (MDRD) Af Amer Est GFR (MDRD) Non-Af BUN/Creatinine Ratio Glucose Calcium Troponin I High Sens B-Natriuretic Peptide 370.1 H COVID-19 (MARGARITA) Detected Radiography Diagnostic Testing: Clinical Impression(s) from Imaging Studies Chest X-Ray 01/17/22 01:30 IMPRESSION: Interval development of peribronchial cuffing indicating bronchial wall inflammation/bronchitis. Interval development of minimal patchy pneumonia in the right lower lung. Electronically Signed: Sheng Duggan MD at 2:23 EDT , Chest CTA 01/17/22 01:58 IMPRESSION: Negative for PE. No thoracic aortic dissection identified. Moderate central and subpleural groundglass opacities which may be due to pulmonary edema given the associated basilar interstitial thickening and small associated pleural effusions. Pneumonia such as Covid pneumonia felt less likely, but not excluded. Electronically Signed: Sheng Duggan MD at 5:06 EDT , EKG Initial EKG: Attestation: I personally reviewed and interpreted this EKG as follows: Comments: Sinus tachycardia with occasional PACs and old anterior septal infarct Prior EKG tracings: available for review Prior: Unchanged Critical Care Time Critical care time (excluding procedures): 30-74 minutes, Including time spent:, Discussing w/Patient &/or Family/Sales/Marketing, Discussing w/Consultants, Arranging Admission or Transfer, Performing Direct Patient Care at Bedside and - (30 minutes) Discharge Plan Dx/Rx/DC Orders Clinical Impression: COVID-19, Respiratory failure, Hypoxemia, Pneumonia, Pulmonary edema, Hypertensive urgency Disposition Disposition: Acute Care [facility]
[2022-01-17] MEDS: 0.9% Normal Saline 1,000 ML 150 ML IV (01:38)
[2022-01-17 01:58] LABS: D-Dimer Quantitative (DVT/PE) 1.94 FEU/ug/m (0.27-0.49)
--- NOTE | 2022-01-17 01:58 | CT_ITS ---
STUDY: CTA CHEST REASON FOR EXAM: Female, 76 years old. dyspnea, elevated d-dimer RADIATION DOSAGE (If Supplied By Facility): CTDIvol = ( 28.58 ) mGy, DLP = ( 1507.72 ) mGycm TECHNIQUE: The examination was performed with the intravenous administration of IV 100mL Isovue-300. Post-processing of the angiographic images was performed, with multiplanar reformation and 3D reconstruction. Individualized dose optimization techniques were used for this CT. COMPARISON: Portable chest radiograph of this date. FINDINGS: Normal enhancement of the main pulmonary artery and right and left pulmonary arteries. Normal enhancement of the bilateral peripheral pulmonary arteries. There is no demonstrated pulmonary embolism. Normal thoracic aorta and visualized great vessels. There is no demonstrated aortic dissection. Findings of remote granulomatous infection are present. No hilar or mediastinal adenopathy. Asymmetric groundglass opacities and patchy airspace disease noted posteriorly within the right upper lobe. Central groundglass opacities are noted in the perihilar regions bilaterally with minimal superimposed airspace disease. Subpleural groundglass opacities noted anteriorly within the right upper lobe. At the lung bases, the pulmonary interstitial markings are thickened. Atelectasis and patchy airspace disease noted inferiorly and posteriorly within the lower lobes, slightly greater on the right. Very small pleural effusions are present. The right pleural effusion extends into the major fissure. No pneumothorax is seen. Moderate coronary artery calcification is present. No pericardial effusion is noted. No acute osseous abnormality. Visualized portions of the liver, spleen, pancreas and adrenal glands are unremarkable. An uncomplicated diverticulum projects from the splenic flexure of the colon. No pneumoperitoneum is noted. CT/CTA Chest W/WO Contrast IMPRESSION: Negative for PE. No thoracic aortic dissection identified. Moderate central and subpleural groundglass opacities which may be due to pulmonary edema given the associated basilar interstitial thickening and small associated pleural effusions. Pneumonia such as Covid pneumonia felt less likely, but not excluded. Electronically Signed: Sheng Duggan MD at 5:06 EDT ,
[2022-01-17 02:15] LABS: Absolute Lymphocyte Count 0.95 X10^3/uL (0.83-4.51); Absolute Neutrophil Count 10.2 X10^3/uL (2.0-7.7); Basophil# 0.03 X10^3/uL; Basophil% 0.3 % (0-1); Eosinophils% 0.8 % (0-5); Hematocrit 40.5 % (37-47); Hemoglobin 13.1 g/dL (12.0-15.0); Lymphocyte # 0.95 X10^3/ul (0.83-4.51); Lymphocyte % 7.9 % (19-41); Mean Corp Hgb Conc 32.3 g/dL (32-36); Mean Corpuscular Hgb 32.3 pg (27.0-32.0); Mean Corpuscular Volume 99.8 fL (81-99); Mean Platelet Vol. 9.2 fl (6.2-12.0); Monocyte# 0.66 X10^3/uL; Monocyte% 5.5 % (0-10); NRBC Flagged by Analyzer 0 % (0-5); Neutrophil # 10.19 X10^3/uL (2.7-7.7); Neutrophil % 84.9 % (47-70); Platelet Count 305 K/mm3 (150-450); RBC Distribution Width CV 12.9 % (11.6-14.6); RBC Distribution Width SD 47.6 fl (35.1-43.9); Red Blood Count 4.06 M/mm3 (4.2-5.4)
[2022-01-17 02:18] LABS: Anion Gap 8 (5-15); BUN 15 mg/dL (7-18); BUN/Creat Ratio 14.7 RATIO (10-20); Calcium,Total 9.2 mg/dL (8.5-10.1); Chloride 104 mmol/L (98-107); Creatinine, Serum 1.02 mg/dL (0.55-1.02); EST Glomerular Filtration Rate 56 mL/min (>60); Est Glom Filt Rate - Afr Amer 68 mL/min (>60); Estimated Creatinine Clearance 47.33 ml/min; Glucose 89 mg/dL (74-106); Potassium 3.9 mmol/L (3.5-5.1); Sodium Level 137 mmol/L (136-145); Troponin-I HS 16 pg/mL (3.0-54.0)
[2022-01-17 02:36] LABS: BNP,B-Type NATRIURETIC PEPTIDE 370.1 pg/mL (0-100)
[2022-01-17] MEDS: DiphenhydrAMINE 50 MG/ML Syringe 25 MG IV (02:46)
[2022-01-17] MEDS: MethylPREDNISolone 125 MG/2 ML Vial IV (02:47)
[2022-01-17] MEDS: Ipratropium/Albuterol Sulfate 3 ML AMPUL.NEB INHALATION (02:48)
--- NOTE | 2022-01-17 03:08 | NURSING ---
dr sosa aware of pt po 80s. bipap ordered. resp notified
[2022-01-17] MEDS: Furosemide 100 MG/10 ML Vial 80 MG IV (03:12)
[2022-01-17] MEDS: hydrALAZINE 20 MG/ML Vial 10 MG IV (03:12)
[2022-01-17] MEDS: Nitroglycerin Oint 1 INCH PACKET TD (03:20)
--- NOTE | 2022-01-17 04:45 | PCM.HP.STD ---
HPI - General General Date of Admission: 01/17/22 Date of Service: 01/17/22 Chief Complaint: URI type symptoms, dyspnea. HPI Narrative The patient is a 76 y/o F w/ PMHx: PAF, CAD s/p PCI x 2 07/2021 w/ Hx STEMI, Ischemic cardiomyopathy, HTN, HLD, Chronic back pain, Allergic rhinitis who presents to the [facility] ED on 01/17/22 with history of onset shortness of breath over the last several hours with sensation of fluttering heart which she reports having occasionally with anxiety however this is more severe than her usual panic attacks with no recent fever or chills however she does note that her seasonal allergies have been more severe recently with occasional cough, congestion, rhinorrhea, mild headache and fatigue, worse over the last 24-48 hours with sudden onset as noted of severe dyspnea prompting ED evaluation. Patient of note per most recent cardiology reports and visit has been using intermittent low-dose prednisone which she reports to assist her with her fatigue and general malaise following usage of beta-josh therapy. Patient has not been vaccinated against COVID-19 secondary to allergies associated. Work-up in the ED included T97.9, heart rate 98, BP initially 215/95, respiratory rate 16, initially 92% on room air however decreased to 85% on room air and eventually 83% on 6 L transition to a Ventimask eventually placed on BiPAP noted to be 98% on 40% FiO2, D-dimer 1.94, CBC with WBC 12, hemoglobin 13.1, platelets 305 with left shift, BMP not marked appearing, BNP 370.1, troponin 16, COVID PCR positive, chest x-ray with interval development of peribronchial cuffing indicating bronchial wall inflammation/bronchitis with interval development of minimal patchy pneumonia right lower lung, CTPA obtained and just being performed prior to evaluation with read pending, Bld Cx x 2 pending per ED. In the ED patient ministered IV fluids and chlordiazepoxide home regimen x1 secondary to GI's related side effects of anxiety initially eventually followed by doxycycline 100 mg IV x1, nitroglycerin ointment 1 inch TD, Solu-Medrol 125 mg IV x1, DuoNeb therapy, hydralazine 10 mg IV x1, Lasix 80 mg x 1, diphenhydramine 25 mg IV x1 secondary to initial concern PNA, possible flash pulmonary edema given prior history following STEMI and allergies to agents as noted. [facility] Medical History (Reviewed 11/01/21 @ 12:25 by Coy Marte FORMING MACHINE UPKEEP MECHANIC HELPER, FORMING MACHINE UPKEEP MECHANIC HELPER-C) Atherosclerotic heart disease of [place] coronary artery without angina pectoris Cellulitis Essential hypertension Fracture of metatarsal of left foot, closed History of carpal tunnel syndrome History of chronic back pain Myocardial infarct Non-STEMI (non-ST elevated myocardial infarction) Presence of stent in coronary artery (~08/08/21) Pulmonary edema Vocal cord granuloma Home Medications Premarin 0.625 mg PO DAILY 02/12/14 [History Last Taken 10/09/21] Gastrocrom 200 mg PO 4X/DAY 01/27/19 [History Last Taken 10/09/21] olopatadine 0.2 % eye drops 1 drp OPHTHALMIC (EYE) DAILY 01/02/21 [History Last Taken Unknown] hydrocortisone acetate 25 mg rectal suppository 25 mg TN BID PRN 08/20/21 [History Last Taken 10/09/21] budesonide 32 mcg/actuation nasal spray,aerosol 32 mcg INTRANASAL ONCE PRN 08/30/21 [History Last Taken Unknown] nitrofurantoin macrocrystal 50 mg capsule 50 mg PO DAILY cap 08/30/21 [History Last Taken 10/09/21] pot bicarb 344 mg-sod bicarb 1,050 mg-citric acid 1,000 mg efferv tab 1 tab PO Q4H PRN 08/30/21 [History Last Taken Unknown] prednisolone acetate 0.12 % eye drops,suspension 1 drp OPHTHALMIC (EYE) Q OTHER DAY ml 08/30/21 [History Last Taken 10/08/21] prednisone 5 mg tablet 5 mg PO DAILY tab 08/30/21 [History Last Taken 10/09/21] acetaminophen 1,000 mg PO DAILY PRN 10/09/21 [History Last Taken 10/08/21] cetirizine [Zyrtec] 10 mg PO DAILY 10/09/21 [History Last Taken 10/09/21] chlordiazepoxide-clidinium 1 cap PO DAILY PRN 10/09/21 [History Last Taken Unknown] prasugrel 10 mg tablet 10 mg PO DAILY #90 tab 10/11/21 [Rx Last Taken Unknown] amlodipine 2.5 mg tablet 1.25 mg PO DAILY tab 10/30/21 [History Last Taken Unknown] triamterene 37.5 mg-hydrochlorothiazide 25 mg capsule 1 cap PO DAILY PRN 10/30/21 [History Last Taken Unknown] metoprolol tartrate 25 mg tablet 12.5 mg PO BID tab 11/05/21 [History Last Taken Unknown] atorvastatin 20 mg tablet 20 mg PO QHS #60 tab 12/19/21 [Rx Last Taken Unknown] potassium chloride 10 mEq tablet,extended release 5 meq PO .PRN PRN #45 tab 12/30/21 [Rx Last Taken Unknown] Allergy/AdvReac Type Severity Reaction Status Date / Time aspirin Allergy Severe Tight in Verified 11/01/21 11:48 throat, Severe tinnitus, nosebleeds, dizzy. clopidogrel Allergy Intermediate Hives Verified 11/01/21 11:48 alprazolam [From Xanax] Allergy Unknown Unknown Verified 11/01/21 11:48 [place] Derivatives Allergy Unknown Unknown Verified 11/01/21 11:48 mushroom Allergy Unknown Unknown Verified 11/01/21 11:48 paroxetine [From Paxil] Allergy Unknown Unknown Verified 11/01/21 11:48 peanut Allergy Unknown Unknown Verified 11/01/21 11:48 ticagrelor [From Brilinta] Allergy Unknown unknown Verified 11/01/21 11:48 tolmetin [From Tolectin] Allergy Unknown Unknown Verified 11/01/21 11:48 Yeast Allergy Unknown Unknown Verified 11/01/21 11:48 acetaminophen Allergy Other Verified 11/01/21 11:48 [From Darvocet-N] codeine Allergy Other Verified 11/01/21 11:48 fluconazole [From Diflucan] Allergy Rash Verified 11/01/21 11:48 lidocaine Allergy Other Verified 11/01/21 11:48 meperidine HCl [From Demerol] Allergy Other Verified 11/01/21 11:48 metronidazole [From Metrogel] Allergy Rash Verified 11/01/21 11:48 Opioids - Morphine Analogues Allergy Other Verified 11/01/21 11:48 oxycodone HCl [From Percodan] Allergy Other Verified 11/01/21 11:48 oxycodone terephthalate Allergy Other Verified 11/01/21 11:48 [From Percodan] Penicillins Allergy Rash Verified 11/01/21 11:48 propoxyphene napsylate Allergy Other Verified 11/01/21 11:48 [From Darvocet-N] Sulfa (Sulfonamide Allergy Rash Verified 11/01/21 11:48 Antibiotics) amiodarone AdvReac Severe Severe Verified 11/01/21 11:48 urinary retention Beef Containing Products AdvReac Severe Unknown Verified 11/01/21 11:48 carvedilol AdvReac Severe Very Verified 11/01/21 11:48 lightheaded, Dizziness, floating on ceiling feeling. cheese AdvReac Mild Unknown Verified 11/01/21 11:48 egg AdvReac Unknown Unknown Verified 11/01/21 11:48 maltose AdvReac Unknown Unknown Verified 11/01/21 11:48 adhesive tape AdvReac Rash Verified 11/01/21 11:48 Cephalosporins AdvReac Shortness Verified 11/01/21 11:48 of breath cyclobenzaprine AdvReac NEEDS Verified 11/01/21 11:48 [From Flexeril] FOLLOW-UP epinephrine AdvReac NEEDS Verified 11/01/21 11:48 FOLLOW-UP estrogens, conjugated AdvReac NEEDS Verified 11/01/21 11:48 [From Premarin] FOLLOW-UP glycerin AdvReac Itching Verified 11/01/21 11:48 lisinopril AdvReac Shortness Verified 11/01/21 11:48 of breath midazolam [From Versed] AdvReac NEEDS Verified 11/01/21 11:48 FOLLOW-UP ofloxacin [From Floxin] AdvReac NEEDS Verified 11/01/21 11:48 FOLLOW-UP phenol AdvReac Shortness Verified 11/01/21 11:48 of breath salicylates AdvReac Shortness Verified 11/01/21 11:48 of breath spider venom AdvReac Nausea Verified 11/01/21 11:48 Dyes AdvReac Hallucinati Uncoded 11/01/21 11:48 on Family History Father Rheumatic heart disease Mother Cancer Other Allergies Asthma Surgical History H/O: hysterectomy History of D&C History of tonsillectomy History of tubal ligation Presence of coronary angioplasty implant and graft (~08/08/21) Social History household members: none Smoking Status: Never smoker alcohol intake: never substance use type: does not use diet: low salt and other what type of physical activity do you participate in: none seatbelt use: always do you feel safe at home: Yes additional social history: ROS ROS Narrative Admission Review of Systems: CONSTITUTIONAL: No weight loss, fever, chills, + weakness or fatigue. HEENT: + Congestion, rhinorrhea, mild sore throat, postnasal drip, headache, sneezing. Eyes: No visual loss, blurred vision, double vision or yellow sclerae. Ears, Nose, Throat: No hearing loss. No alteration to sense of taste/smell. SKIN: No rash or itching, lesions, wounds. CARDIOVASCULAR: + Palpitations/fluttering no chest pain, chest pressure or chest discomfort, edema, orthopnea, syncopal events. RESPIRATORY: + Shortness of breath, mild cough with no marked sputum, No wheezing, hemoptysis. GASTROINTESTINAL: + Anorexia, No nausea, vomiting or diarrhea, abdominal pain, melena, BRBPR. GENITOURINARY: No dysuria, frequency, urgency or retention. NEUROLOGICAL: + Mild headache, No dizziness, syncope, paralysis, ataxia, numbness or tingling in the extremities, focal weakness, change in bowel or bladder control, seizure. MUSCULOSKELETAL: + muscle, back pain, joint pain or stiffness. HEMATOLOGIC: + anemia, bleeding or bruising. LYMPHATICS: No enlarged nodes. No history of splenectomy. PSYCHIATRIC: + history of depression or anxiety. ENDOCRINOLOGIC: No reports of sweating, cold or heat intolerance. No polyuria or polydipsia. ALLERGIES: + Hx hives, rhinitis. Vital Signs Vital Signs Vital Signs: 01/17/22 01:16 01/17/22 02:00 01/17/22 02:03 Temperature 97.9 F Temperature Source Temporal Pulse Rate 98 Respiratory Rate 16 Respiratory Effort Normal Non-Labored Respiratory Depth Normal Respiratory Pattern Tachypnea Blood Pressure 215/95 H Blood Pressure Mean 135 Pulse Ox 92 85 Oxygen Delivery Method Room Air Room Air Nasal Cannula Oxygen Flow Rate (L/min) 4 Fraction of Inspired Oxygen (FIO2) 01/17/22 02:07 01/17/22 02:15 01/17/22 02:54 Temperature Temperature Source Pulse Rate 121 H Respiratory Rate 26 H 26 H 25 H Respiratory Effort Respiratory Depth Respiratory Pattern Blood Pressure Blood Pressure Mean Pulse Ox 87 89 Oxygen Delivery Method Nasal Cannula Nasal Cannula Oxygen Flow Rate (L/min) 4 4 Fraction of Inspired Oxygen (FIO2) 01/17/22 03:00 01/17/22 03:07 01/17/22 03:13 Temperature Temperature Source Pulse Rate 111 H 109 H 113 H Respiratory Rate 43 H 31 H 34 H Respiratory Effort Respiratory Depth Respiratory Pattern Blood Pressure 224/103 H 215/107 H Blood Pressure Mean 143 143 Pulse Ox 83 84 96 Oxygen Delivery Method Nasal Cannula Venturi Mask Bi-pap Oxygen Flow Rate (L/min) 6 12 Fraction of Inspired Oxygen (FIO2) 50 40 01/17/22 03:20 01/17/22 03:22 01/17/22 03:41 Temperature Temperature Source Pulse Rate 122 H 112 H 120 H Respiratory Rate 38 H 28 H Respiratory Effort Respiratory Depth Respiratory Pattern Blood Pressure 215/107 H 187/82 H Blood Pressure Mean 117 Pulse Ox 98 95 Oxygen Delivery Method Bi-pap Oxygen Flow Rate (L/min) Fraction of Inspired Oxygen (FIO2) 40 40 01/17/22 04:43 Temperature Temperature Source Pulse Rate 105 H Respiratory Rate 20 H Respiratory Effort Respiratory Depth Respiratory Pattern Blood Pressure 174/79 H Blood Pressure Mean 110 Pulse Ox 98 Oxygen Delivery Method Bi-pap Oxygen Flow Rate (L/min) Fraction of Inspired Oxygen (FIO2) 40 Weight Weight: 170 lb 13.732 oz Body Mass Index (BMI) 25.9 Physical Exam Narrative Physical Examination: General: Awake, alert, oriented x 3 and cooperative, seated upright in the ED bed, fatigued, increased respiratory rate and accessory muscle use noted, recent BIPAP, transition to for CT scan only. Skin: Normal color, normal turgor, no icterus, no cyanosis. HEENT: AT/NC, EOMI, PERRLA, dry MM, no carotid bruits or JVD noted. Lungs: Diffusely diminished, greater bases, increased respiratory rate with increase of work of breathing accessory muscle usage noted, no rales, ronchi or wheezing. Heart: Currently mildly tachycardic with regular rhythm; no gallop, rub audible. Abdomen: Soft, NTTP, ND, distant mildly hyperactive BS, no HSM. Extremities: No cyanosis, clubbing, or edema. Neurological: Patient awake, alert, oriented as noted, cognitive function intact but fatigued; pupils equally reactive to light and accommodation, cranial nerves II-XII grossly normal, moving all 4 extremities, no focal deficits, strength severely global decrease secondary to acute presentation. Psychiatric: Affect appears fatigued, evidence of respiratory distress, anxious, history of depression and anxiety. Results Lab / Micro Data Result Diagrams: 01/17/22 02:10 01/17/22 01:25 Labs: Laboratory Results - last 24 hr 01/17/22 01:25: WBC Cancelled, Corrected WBC Cancelled, RBC Cancelled, Hgb Cancelled, Hct Cancelled, MCV Cancelled, MCH Cancelled, MCHC Cancelled, RDW Std Deviation Cancelled, RDW Coeff of [place]bon[place] Cancelled, Plt Count Cancelled, MPV Cancelled, Immature Gran % (Auto) Cancelled, Neut % (Auto) Cancelled, Lymph % (Auto) Cancelled, Alexander % (Auto) Cancelled, Eos % (Auto) Cancelled, Baso % (Auto) Cancelled, Absolute Neuts (auto) Cancelled, Absolute Lymphs (auto) Cancelled, Total Counted Cancelled, Neutrophils % (Manual) Cancelled, Band Neutrophils % Cancelled, Lymphocytes % (Manual) Cancelled, Monocytes % (Manual) Cancelled, Eosinophils % (Manual) Cancelled, Basophils % (Manual) Cancelled, Metamyelocytes % Cancelled, Myelocytes % Cancelled, Promyelocytes % Cancelled, Blast Cells % Cancelled, Plasma Cell % (Manual) Cancelled, Other Cells % Cancelled, Nucleated RBC % Cancelled, Nucleated RBCs/100 WBC Cancelled, Differential Comment Cancelled, Diff Path Review Cancelled, Hypersegmented Neuts Cancelled, Atypical Lymphocytes Cancelled, Reactive Lymphocytes Cancelled, Smudge Cells Cancelled, Toxic Granulation Cancelled, Toxic Vacuolation Cancelled, Dohle Bodies Cancelled, Aaron Rods Cancelled, Platelet Estimate Cancelled, Plt Morphology Comment Cancelled, RBC Morphology Cancelled, Polychromasia Cancelled, Hypochromasia Cancelled, Poikilocytosis Cancelled, Basophilic Stippling Cancelled, Anisocytosis Cancelled, Microcytosis Cancelled, Macrocytosis Cancelled, Spherocytes Cancelled, Sickle Cells Cancelled, Target Cells Cancelled, Tear Drop Cells Cancelled, Ovalocytes Cancelled, Stomatocytes Cancelled, Jain-Mcrae-[place] Bodies Cancelled, Mansi Cells Cancelled, Bite Cells Cancelled, Crenated Cell Cancelled, Acanthocytes (Spur) Cancelled, Rouleaux Cancelled, Schistocytes Cancelled 01/17/22 01:25: D-Dimer Quant (PE/DVT) 1.94 H* 01/17/22 01:25: Sodium 137, Potassium 3.9, Chloride 104, Carbon Dioxide 25.0, Anion Gap 8, BUN 15, Creatinine 1.02, Estim Creat Clear Calc 47.33, Est GFR (MDRD) Af Amer 68, Est GFR (MDRD) Non-Af 56 L, BUN/Creatinine Ratio 14.7, Glucose 89, Calcium 9.2, Troponin I High Sens 16 01/17/22 01:35: COVID-19 (MARGARITA) Detected 01/17/22 02:10: B-Natriuretic Peptide 370.1 H 01/17/22 02:10: WBC 12.0 H, RBC 4.06 L, Hgb 13.1, Hct 40.5, MCV 99.8 H, MCH 32.3 H, MCHC 32.3, RDW Std Deviation 47.6 H, RDW Coeff of [place]bon[place] 12.9, Plt Count 305, MPV 9.2, Immature Gran % (Auto) 0.600, Neut % (Auto) 84.9 H, Lymph % (Auto) 7.9 L, Alexander % (Auto) 5.5, Eos % (Auto) 0.8, Baso % (Auto) 0.3, Absolute Neuts (auto) 10.2 H, Absolute Lymphs (auto) 0.95, Nucleated RBC % 0 Radiology Impression Chest X-Ray 01/17/22 01:30 IMPRESSION: Interval development of peribronchial cuffing indicating bronchial wall inflammation/bronchitis. Interval development of minimal patchy pneumonia in the right lower lung. Electronically Signed: Sheng Duggan MD at 2:23 EDT , Assessment & Plan Assessment/Plan (1) COVID-19: (2) Respiratory failure: QUALIFIERS: Chronicity: acute Respiratory failure complication: hypoxia Qualified Code(s): J96.01 - Acute respiratory failure with hypoxia PLAN: The patient is a 76 y/o F w/ PMHx: PAF, CAD s/p PCI x 2 07/2021 w/ Hx STEMI, Ischemic cardiomyopathy, HTN, HLD, Chronic back pain, Allergic rhinitis who presents to the [facility] ED on 01/17/22 with history of onset shortness of breath over the last several hours with sensation of fluttering heart which she reports having occasionally with anxiety however this is more severe than her usual panic attacks with no recent fever or chills however she does note that her seasonal allergies have been more severe recently with occasional cough, congestion, rhinorrhea, mild headache and fatigue, worse over the last 24-48 hours with sudden onset as noted of severe dyspnea prompting ED evaluation. #1. Acute Hypoxic Respiratory Failure secondary to Acute Bilateral Pneumonia secondary to Acute Viral Syndrome, COVID-19, possible component Flash Pulmonary edema with Ischemic cardiomyopathy but lower suspicion: Will admit to the ICU, maintain on COVID precautions, continue BIPAP placement, consult ID and Infectious disease, will maintain on oxygen with wean as tolerated to room air, PRN albuterol, HOB, IS parameters w/ pending sputum cultures, respiratory viral panel and urine antigens, CTPA pending upon evaluation, will obtain procalcitonin, CRP, CPK, Ferritin, LDH, continue supportive care including q 2 hour turning including prone given no prone bed availability and judicious hydration, closely monitor for worsening status for ARDS and multiorgan failure, will initiate and continue IV decadron x 10 doses, given presentation will also initiate IV remdesivir but defer to discretion of Infectious disease. Will also request as noted ID involvement for further regimen consideration given severity of status. Patient administered IV abx therapy in the ED; however, given + COVID status will hold on further abx therapy but low threshold to resume if concern concurrent superimposed bacterial infection. #2. CAD: History NSTEMI, status post PCI x2 07/2021 (mid LAD, PTCA of side branch of diagonal 1 with 99% stenosis improved to 10-20% stenosis, PCI mid RCA), allergic to both aspirin and Plavix, will continue prasugrel, metoprolol, not on FARAZ inhibitor/ARB secondary to intolerance/allergy. #3. Ischemic cardiomyopathy: We will continue patient prasugrel, statin therapy, metoprolol, not on FARAZ inhibitor/ARB secondary to intolerance/allergy, continue diuretic. 10/09/2021 echocardiogram with EF 45%, mild global LV systolic dysfunction, mild to moderate MVI, trivial TVI, RVSP 24 mmHg. #4. PAF: 09/2021 admission for new onset A. fib, treated at that time with IV amiodarone with transition to oral with started on metoprolol with 10/11/2019 2 repeat cardiac catheterization demonstrating patent stents with 10/14/2021 evaluation with urinary retention with eventual discontinuation of amiodarone felt to be the causative etiology with improvement since. Patient when she had onset of atrial fibrillation was encouraged to remain on anticoagulation however she was concerned with bleeding risk therefore Eliquis which had been started was held specifically per patient preference with understanding that if there was recurrence this likely would need to be resumed and that regardless given the occurrence her risk was still elevated for stroke. #5. Allergic rhinitis: We will continue patient home Zyrtec, Gastrocrom, olopatadine drops as well as budesonide nasal spray. #6. Anxiety and depression: Patient with several allergies including to prior SSRIs noted in system, will continue home PRN chlordiazepoxide regimen for GI related anxiety symptoms. #7. Hypertension: Continue home regimen including metoprolol, triamterene-hydrochlorothiazide, amlodipine, PRN hydralazine. #8. Hyperlipidemia: Continue home statin regimen. #9. DVT prophylaxis: SCDs, lovenox. #10. CODE status: Patient MIQUEL is her son who is present and living will is currently in place. Discussed CODE status at length including difference between FULL code, DNR-CCA and DNR-CC status. Following discussions about the differences in these status, requested Full Code status. Amenable to antiviral treatments. Advanced Care Planning Face to Face Time: 16 minutes. Charges/Coding Visit Charges Inpatient E&M: 52886 Init Hosp L3 Procedures Hospitalists Procedures: 15346 Advncd Care Plan 30 Min
--- NOTE | 2022-01-17 05:51 | CON.PCM.CC_ITS ---
Assessment & Plan Assessment/Plan (1) Respiratory failure: QUALIFIERS: Chronicity: acute Respiratory failure complication: hypoxia Qualified Code(s): J96.01 - Acute respiratory failure with hypoxia PLAN: RECOMMENDATIONS: 1. Encourage incentive spirometer use and mobilize patient as tolerated. 2. Defer need for remdesivir and Decadron to ID. 3. Continue home antihypertensives. 4. Additional diuresis, if needed. 5. The patient is medically stable for transfer out of the intensive care unit. IMPRESSIONS: 1. Acute hypoxemic respiratory failure While the patient initially tested positive for COVID through a rapid antigen test, I do feel that it is more likely that her symptoms were likely precipitated by a panic attack and subsequent hypertensive emergency leading to a degree of pulmonary edema. It is unclear as to whether the patient may have experienced a paroxysmal episode of atrial fibrillation as well. In light of the fact that she responded clinically so quickly to the use of diuretics and BiPAP, I have to do suspect that it was pulmonary edema that led to her acute decompensation as opposed to a pulmonary inflammatory process associated with COVID-19. The patient is currently maintaining appropriate oxygen saturations on room air. She would benefit from resumption of her home cardiac medication regimen along with additional diuresis as needed and aggressive blood pressure control. I will defer the need for additional COVID related treatments to infectious diseases. 2. History of coronary artery disease status post PCI/ischemic cardiomyopathy/paroxysmal atrial fibrillation Continue home cardiac medication regimen. 3. Generalized anxiety disorder/depression/hypertension/hyperlipidemia Complicates care, management, recovery and prognosis. The patient would likely benefit from being on some form of baseline antidepressant/anxiolytic therapy on an outpatient basis. This note was generated with fitaborate dictation software. It may contain incorrect words, spelling, and punctuation that were not noted in checking the note before signing. HPI Consult Data Date of Consult: 01/17/22 HPI Narrative Reason for Consultation: Acute hypoxemic respiratory failure secondary to COVID- 19 pneumonia HPI Narrative: The patient is a 76-year-old female, with a history as outlined below, who presented to the emergency department on January 17 with cough, congestion, rhinorrhea and shortness of breath. The patient is currently followed by Dr. Coates in the cardiology clinic due to a history of coronary artery disease status post PCI in 2020. She was last noted to have an ejection fraction of approximately 40 to 45%. The patient has experienced episodes of hypertensive emergency in the past with associated pulmonary edema. She has also recently experienced episodes of atrial fibrillation. The patient readily admits to a great deal of baseline anxiety and panic attacks. On presentation to the emergency department, the patient was noted to be afebrile but was significantly hypertensive with a blood pressure of 215/95 mmHg. Initial laboratory evaluation revealed a white blood cell count of 12,000. D-dimer was noted to be 1.94. Chemistry profile was unrevealing. BNP was elevated at 370. Troponin was negative. COVID rapid antigen testing was po sitive. CTA chest showed no evidence for pulmonary embolism. Bilateral groundglass opacities were noted. Blood cultures were obtained. Due to increased work of breathing, the patient was placed transiently on BiPAP. Upon my evaluation of the patient this morning, she has been weaned from BiPAP therapy and was maintaining appropriate oxygen saturations on room air. [facility] Medical History Atherosclerotic heart disease of [place] coronary artery without angina pectoris Cellulitis Essential hypertension Fracture of metatarsal of left foot, closed History of carpal tunnel syndrome History of chronic back pain Myocardial infarct Non-STEMI (non-ST elevated myocardial infarction) Presence of stent in coronary artery (~08/08/21) Pulmonary edema Vocal cord granuloma Home Medications Premarin 0.625 mg PO DAILY 02/12/14 [History Last Taken 10/09/21] Gastrocrom 200 mg PO 4X/DAY 01/27/19 [History Last Taken 10/09/21] olopatadine 0.2 % eye drops 1 drp OPHTHALMIC (EYE) DAILY 01/02/21 [History Last Taken Unknown] hydrocortisone acetate 25 mg rectal suppository [address] BID PRN 08/20/21 [History Last Taken 10/09/21] budesonide 32 mcg/actuation nasal spray,aerosol 32 mcg INTRANASAL ONCE PRN 08/30/21 [History Last Taken Unknown] nitrofurantoin macrocrystal 50 mg capsule 50 mg PO DAILY cap 08/30/21 [History Last Taken 10/09/21] pot bicarb 344 mg-sod bicarb 1,050 mg-citric acid 1,000 mg efferv tab 1 tab PO Q4H PRN 08/30/21 [History Last Taken Unknown] prednisolone acetate 0.12 % eye drops,suspension 1 drp OPHTHALMIC (EYE) Q OTHER DAY ml 08/30/21 [History Last Taken 10/08/21] prednisone 5 mg tablet 5 mg PO DAILY tab 08/30/21 [History Last Taken 10/09/21] acetaminophen 1,000 mg PO DAILY PRN 10/09/21 [History Last Taken 10/08/21] cetirizine [Zyrtec] 10 mg PO DAILY 10/09/21 [History Last Taken 10/09/21] chlordiazepoxide-clidinium 1 cap PO DAILY PRN 10/09/21 [History Last Taken Unknown] prasugrel 10 mg tablet 10 mg PO DAILY #90 tab 10/11/21 [Rx Last Taken Unknown] amlodipine 2.5 mg tablet 1.25 mg PO DAILY tab 10/30/21 [History Last Taken Unknown] triamterene 37.5 mg-hydrochlorothiazide 25 mg capsule 1 cap PO DAILY PRN [History Last Taken Unknown] metoprolol tartrate 25 mg tablet 12.5 mg PO BID tab 11/05/21 [History Last Taken Unknown] atorvastatin 20 mg tablet 20 mg PO QHS #60 tab 12/19/21 [Rx Last Taken Unknown] potassium chloride 10 mEq tablet,extended release 5 meq PO .PRN PRN #45 tab 12/30/21 [Rx Last Taken Unknown] Allergy/AdvReac Type Severity Reaction Status Date / Time aspirin Allergy Severe Tight in Verified 11/01/21 11:48 throat, Severe tinnitus, nosebleeds, dizzy. clopidogrel Allergy Intermediate Hives Verified 11/01/21 11:48 alprazolam [From Xanax] Allergy Unknown Unknown Verified 11/01/21 11:48 Oceana And Derivatives Allergy Unknown Unknown Verified 11/01/21 11:48 mushroom Allergy Unknown Unknown Verified 11/01/21 11:48 paroxetine [From Paxil] Allergy Unknown Unknown Verified 11/01/21 11:48 peanut Allergy Unknown Unknown Verified 11/01/21 11:48 ticagrelor [From Brilinta] Allergy Unknown unknown Verified 11/01/21 11:48 tolmetin [From Tolectin] Allergy Unknown Unknown Verified 11/01/21 11:48 Yeast Allergy Unknown Unknown Verified 11/01/21 11:48 acetaminophen Allergy Other Verified 11/01/21 11:48 [From Darvocet-N] codeine Allergy Other Verified 11/01/21 11:48 fluconazole [From Diflucan] Allergy Rash Verified 11/01/21 11:48 lidocaine Allergy Other Verified 11/01/21 11:48 meperidine HCl [From Demerol] Allergy Other Verified 11/01/21 11:48 metronidazole [From Metrogel] Allergy Rash Verified 11/01/21 11:48 Opioids - Morphine Analogues Allergy Other Verified 11/01/21 11:48 oxycodone HCl [From Percodan] Allergy Other Verified 11/01/21 11:48 oxycodone terephthalate Allergy Other Verified 11/01/21 11:48 [From Percodan] Penicillins Allergy Rash Verified 11/01/21 11:48 propoxyphene napsylate Allergy Other Verified 11/01/21 11:48 [From Darvocet-N] Sulfa (Sulfonamide Allergy Rash Verified 11/01/21 11:48 Antibiotics) amiodarone AdvReac Severe Severe Verified 11/01/21 11:48 urinary retention Beef Containing Products AdvReac Severe Unknown Verified 11/01/21 11:48 carvedilol AdvReac Severe Very Verified 11/01/21 11:48 lightheaded, Dizziness, floating on ceiling feeling. cheese AdvReac Mild Unknown Verified 11/01/21 11:48 egg AdvReac Unknown Unknown Verified 11/01/21 11:48 maltose AdvReac Unknown Unknown Verified 11/01/21 11:48 adhesive tape AdvReac Rash Verified 11/01/21 11:48 Cephalosporins AdvReac Shortness Verified 11/01/21 11:48 of breath cyclobenzaprine AdvReac NEEDS Verified 11/01/21 11:48 [From Flexeril] FOLLOW-UP epinephrine AdvReac NEEDS Verified 11/01/21 11:48 FOLLOW-UP estrogens, conjugated AdvReac NEEDS Verified 11/01/21 11:48 [From Premarin] FOLLOW-UP glycerin AdvReac Itching Verified 11/01/21 11:48 lisinopril AdvReac Shortness Verified 11/01/21 11:48 of breath midazolam [From Versed] AdvReac NEEDS Verified 11/01/21 11:48 FOLLOW-UP ofloxacin [From Floxin] AdvReac NEEDS Verified 11/01/21 11:48 FOLLOW-UP phenol AdvReac Shortness Verified 11/01/21 11:48 of breath salicylates AdvReac Shortness Verified 11/01/21 11:48 of breath spider venom AdvReac Nausea Verified 11/01/21 11:48 Dyes AdvReac Hallucinati Uncoded 11/01/21 11:48 on Family History (Reviewed 11/01/21 @ 12:25 by Coy Marte INFORMATION SYSTEMS PROFESSOR, INFORMATION SYSTEMS PROFESSOR-C) Father Rheumatic heart disease Mother Cancer Other Allergies Asthma Surgical History H/O: hysterectomy History of D&C History of tonsillectomy History of tubal ligation Presence of coronary angioplasty implant and graft (~08/08/21) Social History household members: none Smoking Status: Never smoker alcohol intake: never substance use type: does not use diet: low salt and other what type of physical activity do you participate in: none seatbelt use: always do you feel safe at home: Yes additional social history: ROS Constitutional Constitutional: Denies body ache(s), chills or fever(s) Eyes Eyes: Denies blurry vision or change in vision ENT HEENT: Reports nasal congestion; Denies headache(s) or loss taste/smell Cardiovascular Cardiovascular: Reports dyspnea; Denies chest pain Respiratory/Chest Respiratory/Chest: Reports cough and dyspnea Gastrointestinal Gastrointestinal: Denies abdominal pain, diarrhea, nausea or vomiting Genitourinary Genitourinary: Denies difficulty urinating Musculoskeletal Musculoskeletal: Denies arthralgias, back pain or joint pain Integumentary Integumentary: Denies lesions, rash or skin ulcer Neurologic Neurologic: Denies abnormal gait, abnormal speech or confusion Psychiatric Psychiatric: Reports anxiety Endocrine Endocrinology: Denies fatigue Hematologic/Lymphatic Hematologic/Lymphatic: Denies easy bleeding or easy bruising Physical Exam Const alert and no apparent distress General Appearance: cooperative HEENT normocephalic, head/scalp atraumatic and moist oral mucous membranes Eyes PERRL, EOMs intact bilaterally and conjunctivae normal Neck supple General: trachea midline Chest inspection of chest normal Resp Auscultation: diminished lung sounds; Negative for rales, rhonchi or wheezes Cardio regular rate and regular rhythm GI normal to inspection, nondistended, normoactive bowel sounds Extremity no clubbing, cyanosis or edema Skin no rashes or lesions noted Neuro oriented x3, CN's II-XII intact bilaterally and moves all extremities Psych cooperative and affect normal Lab / Micro Data Result Diagrams: 01/17/22 06:30 01/17/22 06:30 Labs: Laboratory Results - last 24 hr 01/17/22 01:25: WBC Cancelled, Corrected WBC Cancelled, RBC Cancelled, Hgb Cancelled, Hct Cancelled, MCV Cancelled, MCH Cancelled, MCHC Cancelled, RDW Std Deviation Cancelled, RDW Coeff of [place]bon[place] Cancelled, Plt Count Cancelled, MPV Cancelled, Immature Gran % (Auto) Cancelled, Neut % (Auto) Cancelled, Lymph % (Auto) Cancelled, [place] % (Auto) Cancelled, Eos % (Auto) Cancelled, Baso % (Auto) Cancelled, Absolute Neuts (auto) Cancelled, Absolute Lymphs (auto) Cancelled, Total Counted Cancelled, Neutrophils % (Manual) Cancelled, Band Neutrophils % Cancelled, Lymphocytes % (Manual) Cancelled, Monocytes % (Manual) Cancelled, Eosinophils % (Manual) Cancelled, Basophils % (Manual) Cancelled, Metamyelocytes % Cancelled, Myelocytes % Cancelled, Promyelocytes % Cancelled, Blast Cells % Cancelled, Plasma Cell % (Manual) Cancelled, Other Cells % Cancelled, Nucleated RBC % Cancelled, Nucleated RBCs/100 WBC Cancelled, Differential Comment Cancelled, Diff Path Review Cancelled, Hypersegmented Neuts Cancelled, Atypical Lymphocytes Cancelled, Reactive Lymphocytes Cancelled, Smudge Cells Cancelled, Toxic Granulation Cancelled, Toxic Vacuolation Cancelled, Dohle Bodies Cancelled, Aaron Rods Cancelled, Platelet Estimate Cancelled, Plt Morphology Comment Cancelled, RBC Morphology Cancelled, Polychromasia Cancelled, Hypochromasia Cancelled, Poikilocytosis Cancelled, Basophilic Stippling Cancelled, Anisocytosis Cancelled, Microcytosis Cancelled, Macrocytosis Cancelled, Spherocytes Cancelled, Sickle Cells Cancelled, Target Cells Cancelled, Tear Drop Cells Cancelled, Ovalocytes Cancelled, Stomatocytes C ancelled, [place] Bodies Cancelled, [place] Cells Cancelled, Bite Cells Cancelled, Crenated Cell Cancelled, Acanthocytes (Spur) Cancelled, Rouleaux Cancelled, Schistocytes Cancelled 01/17/22 01:25: D-Dimer Quant (PE/DVT) 1.94 H* 01/17/22 01:25: Sodium 137, Potassium 3.9, Chloride 104, Carbon Dioxide 25.0, Anion Gap 8, BUN 15, Creatinine 1.02, Estim Creat Clear Calc 47.33, Est GFR (MDRD) Af Amer 68, Est GFR (MDRD) Non-Af 56 L, BUN/Creatinine Ratio 14.7, Glucose 89, Calcium 9.2, Troponin I High Sens 16 01/17/22 01:35: COVID-19 (MARGARITA) Detected 01/17/22 02:10: B-Natriuretic Peptide 370.1 H 01/17/22 02:10: WBC 12.0 H, RBC 4.06 L, Hgb 13.1, Hct 40.5, MCV 99.8 H, MCH 32.3 H, MCHC 32.3, RDW Std Deviation 47.6 H, RDW Coeff of [place] 12.9, Plt Count 305, MPV 9.2, Immature Gran % (Auto) 0.600, Neut % (Auto) 84.9 H, Lymph % (Auto) 7.9 L, [place] % (Auto) 5.5, Eos % (Auto) 0.8, Baso % (Auto) 0.3, Absolute Neuts (auto) 10.2 H, Absolute Lymphs (auto) 0.95, Nucleated RBC % 0 Radiology Impression Chest X-Ray 01/17/22 01:30 IMPRESSION: Interval development of peribronchial cuffing indicating bronchial wall inflammation/bronchitis. Interval development of minimal patchy pneumonia in the right lower lung. Electronically Signed: Sheng Duggan MD at 2:23 EDT , Chest CTA 01/17/22 01:58 IMPRESSION: Negative for PE. No thoracic aortic dissection identified. Moderate central and subpleural groundglass opacities which may be due to pulmonary edema given the associated basilar interstitial thickening and small associated pleural effusions. Pneumonia such as Covid pneumonia felt less likely, but not excluded. Electronically Signed: Sheng Duggan MD at 5:06 EDT , Charges/Coding Visit Charges Inpatient E&M: 12303 Init Hosp L3
[2022-01-17] MEDS: dexAMETHasone 4 MG/ML Vial 6 MG IV ×2 (06:31→08:29)
[2022-01-17] MEDS: 0.9% Saline Lock 10 ML Syringe IV (06:33)
[2022-01-17 06:50] LABS: Absolute Lymphocyte Count 0.23 X10^3/uL (0.83-4.51); Absolute Neutrophil Count 15.1 X10^3/uL (2.0-7.7); Basophil# 0.03 X10^3/uL; Basophil% 0.2 % (0-1); Hematocrit 38.5 % (37-47); Hemoglobin 13.2 g/dL (12.0-15.0); Lymphocyte # 0.23 X10^3/ul (0.83-4.51); Lymphocyte % 1.4 % (19-41); Mean Corp Hgb Conc 34.3 g/dL (32-36); Mean Corpuscular Hgb 32.8 pg (27.0-32.0); Mean Corpuscular Volume 95.8 fL (81-99); Mean Platelet Vol. 9.6 fl (6.2-12.0); Monocyte# 0.57 X10^3/uL; Monocyte% 3.6 % (0-10); NRBC Flagged by Analyzer 0 % (0-5); Neutrophil # 15.08 X10^3/uL (2.7-7.7); Neutrophil % 94.1 % (47-70); POSITIVE DIFFERENTIAL YES; Platelet Count 292 K/mm3 (150-450); RBC Distribution Width CV 13.1 % (11.6-14.6); RBC Distribution Width SD 45.9 fl (35.1-43.9); Red Blood Count 4.02 M/mm3 (4.2-5.4)
[2022-01-17 06:57] LABS: Differential Indicated SCAN CRITERIA MET
[2022-01-17 07:22] LABS: Differential Comment SCANNED
[2022-01-17 07:25] LABS: AST(SGOT) 33 U/L (15-37); Alanine Aminotransfer ALT/SGPT 36 U/L (13-56); Albumin, Serum 3.3 g/dL (3.2-5.0); Alkaline Phosphatase 57 U/L (45-117); Anion Gap 15 (5-15); BUN 15 mg/dL (7-18); BUN/Creat Ratio 13.5 RATIO (10-20); Calcium,Total 8.3 mg/dL (8.5-10.1); Chloride 100 mmol/L (98-107); Creatinine, Serum 1.11 mg/dL (0.55-1.02); EST Glomerular Filtration Rate 51 mL/min (>60); Est Glom Filt Rate - Afr Amer 61 mL/min (>60); Ferritin 128 ng/mL (8-252); Globulin 3.2 g/dL (2.2-4.2); Glucose 135 mg/dL (74-106); LDH 233 U/L (84-246); Magnesium 1.3 mg/dL (1.6-2.6); Protein, Total 6.5 g/dL (6.4-8.2); Sodium Level 136 mmol/L (136-145)
[2022-01-17 07:38] LABS: Procalcitonin 0.49 ng/mL (0.00-0.09)
[2022-01-17] MEDS: Nitrofurantoin Macrocrystals 100 MG Capsule 50 MG PO (08:18)
[2022-01-17] MEDS: amLODIPine 2.5 MG Tablet 1.25 MG PO (08:19)
[2022-01-17] MEDS: Metoprolol Tartrate 25 MG Tablet 12.5 MG PO ×2 (08:19→22:20)
[2022-01-17] MEDS: Enoxaparin 30 MG/0.3 ML Syringe SC ×2 (08:26→22:21)
[2022-01-17] MEDS: prednisoLONE eye drops (5 mL) 1 DROP OPTH.BTL 1 DRP OPHTHALMIC (08:39)
[2022-01-17] MEDS: CROMOLYN SODIUM 20 MG/ML 200 MG PO ×3 (11:51→22:19)
--- NOTE | 2022-01-17 11:57 | PCM.PN.HOSP ---
Subjective Subjective Patient is a 76-year-old lady with multiple comorbidities admitted with shortness of breath, imaging studies obtained on admission did show Moderate central and subpleural groundglass opacities which may be due to pulmonary edema given the associated basilar interstitial thickening andsmall associated pleural effusions patient COVID assay came back positive admitted to a monitored bed for subsequent management Objective Data Objective Data Vital Signs: Vital Signs Temp Pulse Resp BP Pulse Ox 100.1 F H 85 22 H 122/63 H 93 01/17/22 09:00 01/17/22 09:00 01/17/22 09:00 01/17/22 09:00 01/17/22 09:00 Oxygen Flow Rate (L/min) 12 Oxygen Delivery Method Room Air Weight: 75.3 kg Body Mass Index (BMI) 25.2 Intake & Output: Intake and Output for Last 24 Hours 01/15/22 01/16/22 01/17/22 23:59 23:59 23:59 Intake Total 717.5 / 717.5 Output Total 1050 / 1050 Balance -332.5 / -332.5 Lab / Micro Data Result Diagrams: 01/17/22 06:30 01/17/22 06:30 Labs: Laboratory Results - last 24 hr 01/17/22 01:25: WBC Cancelled, Corrected WBC Cancelled, RBC Cancelled, Hgb Cancelled, Hct Cancelled, MCV Cancelled, MCH Cancelled, MCHC Cancelled, RDW Std Deviation Cancelled, RDW Coeff of [place] Cancelled, Plt Count Cancelled, MPV Cancelled, Immature Gran % (Auto) Cancelled, Neut % (Auto) Cancelled, Lymph % (Auto) Cancelled, [place] % (Auto) Cancelled, Eos % (Auto) Cancelled, Baso % (Auto) Cancelled, Absolute Neuts (auto) Cancelled, Absolute Lymphs (auto) Cancelled, Total Counted Cancelled, Neutrophils % (Manual) Cancelled, Band Neutrophils % Cancelled, Lymphocytes % (Manual) Cancelled, Monocytes % (Manual) Cancelled, Eosinophils % (Manual) Cancelled, Basophils % (Manual) Cancelled, Metamyelocytes % Cancelled, Myelocytes % Cancelled, Promyelocytes % Cancelled, Blast Cells % Cancelled, Plasma Cell % (Manual) Cancelled, Other Cells % Cancelled, Nucleated RBC % Cancelled, Nucleated RBCs/100 WBC Cancelled, Differential Comment Cancelled, Diff Path Review Cancelled, Hypersegmented Neuts Cancelled, Atypical Lymphocytes Cancelled, Reactive Lymphocytes Cancelled, Smudge Cells Cancelled, Toxic Granulation Cancelled, Toxic Vacuolation Cancelled, Dohle Bodies Cancelled, Aaron Rods Cancelled, Platelet Estimate Cancelled, Plt Morphology Comment Cancelled, RBC Morphology Cancelled, Polychromasia Cancelled, Hypochromasia Cancelled, Poikilocytosis Cancelled, Basophilic Stippling Cancelled, Anisocytosis Cancelled, Microcytosis Cancelled, Macrocytosis Cancelled, Spherocytes Cancelled, Sickle Cells Cancelled, Target Cells Cancelled, Tear Drop Cells Cancelled, Ovalocytes Cancelled, Stomatocytes Cancelled, Jain[place] Bodies Cancelled, [place] Cells Cancelled, Bite Cells Cancelled, Crenated Cell Cancelled, Acanthocytes (Spur) Cancelled, Rouleaux Cancelled, Schistocytes Cancelled 01/17/22 01:25: D-Dimer Quant (PE/DVT) 1.94 H* 01/17/22 01:25: Sodium 137, Potassium 3.9, Chloride 104, Carbon Dioxide 25.0, Anion Gap 8, BUN 15, Creatinine 1.02, Estim Creat Clear Calc 47.33, Est GFR (MDRD) Af Amer 68, Est GFR (MDRD) Non-Af 56 L, BUN/Creatinine Ratio 14.7, Glucose 89, Calcium 9.2, Troponin I High Sens 16 01/17/22 01:35: COVID-19 (MARGARITA) Detected 01/17/22 02:10: B-Natriuretic Peptide 370.1 H 01/17/22 02:10: WBC 12.0 H, RBC 4.06 L, Hgb 13.1, Hct 40.5, MCV 99.8 H, MCH 32.3 H, MCHC 32.3, RDW Std Deviation 47.6 H, RDW Coeff of [place] 12.9, Plt Count 305, MPV 9.2, Immature Gran % (Auto) 0.600, Neut % (Auto) 84.9 H, Lymph % (Auto) 7.9 L, [place] % (Auto) 5.5, Eos % (Auto) 0.8, Baso % (Auto) 0.3, Absolute Neuts (auto) 10.2 H, Absolute Lymphs (auto) 0.95, Nucleated RBC % 0 01/17/22 06:30: Sodium 136, Potassium 3.0 L, Chloride 100, Carbon Dioxide 21.0, Anion Gap 15, BUN 15, Creatinine 1.11 H, Estim Creat Clear Calc 43.50, Est GFR (MDRD) Af Amer 61, Est GFR (MDRD) Non-Af 51 L, BUN/Creatinine Ratio 13.5, Glucose 135 H, Calcium 8.3 L, Magnesium 1.3 L, Ferritin 128, Total Bilirubin 0.60, AST 33, ALT 36, Alkaline Phosphatase 57, Lactate Dehydrogenase 233, C-React Prot Ext Range 29.50 H, Total Protein 6.5, Albumin 3.3, Globulin 3.2, Albumin/Globulin Ratio 1.0 01/17/22 06:30: Procalcitonin 0.49 H 01/17/22 06:30: WBC 16.0 H, RBC 4.02 L, Hgb 13.2, Hct 38.5, MCV 95.8, MCH 32.8 H, MCHC 34.3 D, RDW Std Deviation 45.9 H, RDW Coeff of [place] 13.1, Plt Count 292, MPV 9.6, Immature Gran % (Auto) 0.700, Neut % (Auto) 94.1 H, Lymph % (Auto) 1.4 L, [place] % (Auto) 3.6, Eos % (Auto) 0.0, Baso % (Auto) 0.2, Absolute Neuts (auto) 15.1 H, Absolute Lymphs (auto) 0.23 L, Nucleated RBC % 0, Differential Comment SCANNED Micro: Microbiology 01/17/22 01:35 Mucosa - Nasopharyngeal Respiratory Panel (PCR) - Final 01/17/22 05:45 Urine, Clean Catch Legionella Antigen - Final 01/17/22 05:45 Urine, Clean Catch Streptococcus pneumoniae Antigen (M - Final Radiography Diagnostic Testing: Radiology Impression Chest X-Ray 01/17/22 01:30 IMPRESSION: Interval development of peribronchial cuffing indicating bronchial wall inflammation/bronchitis. Interval development of minimal patchy pneumonia in the right lower lung. Electronically Signed: Sheng Duggan MD at 2:23 EDT , Chest CTA 01/17/22 01:58 IMPRESSION: Negative for PE. No thoracic aortic dissection identified. Moderate central and subpleural groundglass opacities which may be due to pulmonary edema given the associated basilar interstitial thickening and small associated pleural effusions. Pneumonia such as Covid pneumonia felt less likely, but not excluded. Electronically Signed: Sheng Duggan MD at 5:06 EDT , Physical Exam Narrative GENERAL: cooperative HEENT: Atraumatic; EYES; Anicteric, Normal Conjunctiva NECK; supple, normal thyroid, RESPIRATORY: Diminished to auscultation CARDIOVASCULAR: Regular S1 S2, GI: soft, normoactive bowel sounds, : No Renal angle tenderness; EXTREMITIES: No edema, no clubbing, MUSCULOSKELETAL: no muscle wasting NEURO: Awake; no lateralizing signs. SKIN: No Rash PSYCH; Flat affect Assessment & Plan Assessment/Plan (1) COVID-19: (2) Respiratory failure: QUALIFIERS: Chronicity: acute Respiratory failure complication: hypoxia Qualified Code(s): J96.01 - Acute respiratory failure with hypoxia PLAN: Patient is a 76-year-old lady with multiple comorbidities admitted with shortness of breath, imaging studies obtained on admission did show Moderate central and subpleural groundglass opacities which may be due to pulmonary edema given the associated basilar interstitial thickening andsmall associated pleural effusions patient COVID assay came back positive admitted to a monitored bed for subsequent management 1. Acute dyspnea (acute hypoxic respiratory failure ruled out) ? Secondary to COVID-19 pneumonia patient admitted to monitored bed managed with supplemental oxygen in addition to remdesivir and Decadron with consultation placed to pulmonary medicine 2. Paroxysmal A. fib ? Rate controlled, recommendation was made for patient to start Eliquis during the previous admission she declined 3. Coronary artery disease ? History of previous STEMI on 08/08/2021 with subsequent successful PCI with MIC to LAD PTCA site diagonal branch as well as RCA lesion. Left heart catheterization performed in September demonstrated patent stents 4. Hypertension - Blood pressure controlled, home medications continued with dose adjustment as needed 5. Dyslipidemia -Patient is on statin therapy, continued at home dose 6. Allergic rhinitis ? Patient is on cetirizine 7. DVT prophylaxis ? On enoxaparin 8. Hypomagnesemia -Corrected for protocol, subsequent magnesium level ordered for monitoring 9. Hypokalemia -Corrected per protocol, subsequent potassium level ordered for monitoring Total additional time spent evaluating patient, discussion with patient review of diagnostic data and correction of electrolyte abnormalities as well as discussion with nursing staff and other providers involved in patient's care 55 minutes Charges/Coding Procedures Hospitalists Procedures: [id number] Prolonged InPt Service; first hour
--- NOTE | 2022-01-17 12:55 | CON.PCM.ID_ITS ---
Assessment & Plan Assessment/Plan (1) COVID-19: PLAN: With rapid resolution of hypoxia, would treat this as mild covid at this point. Will plan on 3 dose course of remdesivir, will stop decadron, change back to home pred 5mg daily. Isolate for 10 days. Unable to vaccinated due to allergy. Will follow, thank you. HPI Consult Data Date of Consult: 01/17/22 HPI Narrative HPI Narrative: COREEN JAY, is a 76 F who presented early this AM with sudden onset dyspnea, cough. No sick contacts, unvaccinated for covid. Reports 1 day prior of some increased sneezing/congestion. Hypoxic in ED, admitted to icu on bipap, now feeling fine, on RA. Full ROS performed and neg except as noted above. [facility] Medical History Atherosclerotic heart disease of [place] coronary artery without angina pectoris Cellulitis Essential hypertension Fracture of metatarsal of left foot, closed History of carpal tunnel syndrome History of chronic back pain Myocardial infarct Non-STEMI (non-ST elevated myocardial infarction) Presence of stent in coronary artery (~08/08/21) Pulmonary edema Vocal cord granuloma Home Medications Premarin 0.625 mg PO DAILY 02/12/14 [History Last Taken 10/09/21] Gastrocrom 200 mg PO 4X/DAY 01/27/19 [History Last Taken 10/09/21] olopatadine 0.2 % eye drops 1 drp OPHTHALMIC (EYE) DAILY 01/02/21 [History Last Taken Unknown] hydrocortisone acetate 25 mg rectal suppository 25 mg [place] BID PRN 08/20/21 [History Last Taken 10/09/21] budesonide 32 mcg/actuation nasal spray,aerosol 32 mcg INTRANASAL ONCE PRN 08/30/21 [History Last Taken Unknown] nitrofurantoin macrocrystal 50 mg capsule 50 mg PO DAILY cap 08/30/21 [History Last Taken 10/09/21] pot bicarb 344 mg-sod bicarb 1,050 mg-citric acid 1,000 mg efferv tab 1 tab PO Q4H PRN 08/30/21 [History Last Taken Unknown] prednisolone acetate 0.12 % eye drops,suspension 1 drp OPHTHALMIC (EYE) Q OTHER DAY ml 08/30/21 [History Last Taken 10/08/21] prednisone 5 mg tablet 5 mg PO DAILY tab 08/30/21 [History Last Taken 10/09/21] acetaminophen 1,000 mg PO DAILY PRN 10/09/21 [History Last Taken 10/08/21] cetirizine [Zyrtec] 10 mg PO DAILY 10/09/21 [History Last Taken 10/09/21] chlordiazepoxide-clidinium 1 cap PO DAILY PRN 10/09/21 [History Last Taken Unknown] prasugrel 10 mg tablet 10 mg PO DAILY #90 tab 10/11/21 [Rx Last Taken Unknown] amlodipine 2.5 mg tablet 1.25 mg PO DAILY tab 10/30/21 [History Last Taken Unknown] triamterene 37.5 mg-hydrochlorothiazide 25 mg capsule 1 cap PO DAILY PRN 10/30/21 [History Last Taken Unknown] metoprolol tartrate 25 mg tablet 12.5 mg PO BID tab 11/05/21 [History Last Taken Unknown] atorvastatin 20 mg tablet 20 mg PO QHS #60 tab 12/19/21 [Rx Last Taken Unknown] potassium chloride 10 mEq tablet,extended release 5 meq PO .PRN PRN #45 tab 12/30/21 [Rx Last Taken Unknown] Allergy/AdvReac Type Severity Reaction Status Date / Time aspirin Allergy Severe Tight in Verified 11/01/21 11:48 throat, Severe tinnitus, nosebleeds, dizzy. clopidogrel Allergy Intermediate Hives Verified 11/01/21 11:48 alprazolam [From Xanax] Allergy Unknown Unknown Verified 11/01/21 11:48 [place] And Derivatives Allergy Unknown Unknown Verified 11/01/21 11:48 mushroom Allergy Unknown Unknown Verified 11/01/21 11:48 paroxetine [From Paxil] Allergy Unknown Unknown Verified 11/01/21 11:48 peanut Allergy Unknown Unknown Verified 11/01/21 11:48 ticagrelor [From Brilinta] Allergy Unknown unknown Verified 11/01/21 11:48 tolmetin [From Tolectin] Allergy Unknown Unknown Verified 11/01/21 11:48 Yeast Allergy Unknown Unknown Verified 11/01/21 11:48 acetaminophen Allergy Other Verified 11/01/21 11:48 [From Darvocet-N] codeine Allergy Other Verified 11/01/21 11:48 fluconazole [From Diflucan] Allergy Rash Verified 11/01/21 11:48 lidocaine Allergy Other Verified 11/01/21 11:48 meperidine HCl [From Demerol] Allergy Other Verified 11/01/21 11:48 metronidazole [From Metrogel] Allergy Rash Verified 11/01/21 11:48 Opioids - Morphine Analogues Allergy Other Verified 11/01/21 11:48 oxycodone HCl [From Percodan] Allergy Other Verified 11/01/21 11:48 oxycodone terephthalate Allergy Other Verified 11/01/21 11:48 [From Percodan] Penicillins Allergy Rash Verified 11/01/21 11:48 propoxyphene napsylate Allergy Other Verified 11/01/21 11:48 [From Darvocet-N] Sulfa (Sulfonamide Allergy Rash Verified 11/01/21 11:48 Antibiotics) amiodarone AdvReac Severe Severe Verified 11/01/21 11:48 urinary retention Beef Containing Products AdvReac Severe Unknown Verified 11/01/21 11:48 carvedilol AdvReac Severe Very Verified 11/01/21 11:48 lightheaded, Dizziness, floating on ceiling feeling. cheese AdvReac Mild Unknown Verified 11/01/21 11:48 egg AdvReac Unknown Unknown Verified 11/01/21 11:48 maltose AdvReac Unknown Unknown Verified 11/01/21 11:48 adhesive tape AdvReac Rash Verified 11/01/21 11:48 Cephalosporins AdvReac Shortness Verified 11/01/21 11:48 of breath cyclobenzaprine AdvReac NEEDS Verified 11/01/21 11:48 [From Flexeril] FOLLOW-UP epinephrine AdvReac NEEDS Verified 11/01/21 11:48 FOLLOW-UP estrogens, conjugated AdvReac NEEDS Verified 11/01/21 11:48 [From Premarin] FOLLOW-UP glycerin AdvReac Itching Verified 11/01/21 11:48 lisinopril AdvReac Shortness Verified 11/01/21 11:48 of breath midazolam [From Versed] AdvReac NEEDS Verified 11/01/21 11:48 FOLLOW-UP ofloxacin [From Floxin] AdvReac NEEDS Verified 11/01/21 11:48 FOLLOW-UP phenol AdvReac Shortness Verified 11/01/21 11:48 of breath salicylates AdvReac Shortness Verified 11/01/21 11:48 of breath spider venom AdvReac Nausea Verified 11/01/21 11:48 Dyes AdvReac Hallucinati Uncoded 11/01/21 11:48 on Family History (Reviewed 11/01/21 @ 12:25 by Coy Marte MANUFACTURING ENGINEER SUPERVISOR, MANUFACTURING ENGINEER SUPERVISOR-C) Father Rheumatic heart disease Mother Cancer Other Allergies Asthma Surgical History H/O: hysterectomy History of D&C History of tonsillectomy History of tubal ligation Presence of coronary angioplasty implant and graft (~08/08/21) Social History household members: none Smoking Status: Never smoker alcohol intake: never substance use type: does not use diet: low salt and other what type of physical activity do you participate in: none seatbelt use: always do you feel safe at home: Yes additional social history: Physical Exam Const alert, oriented x3 and no apparent distress General Appearance: cooperative Exam Limitations: no limitations HEENT normocephalic and head/scalp atraumatic Eyes PERRL and EOMs intact bilaterally Neck supple and No nodes Resp normal air movement and clear to auscultation bilaterally Cardio Rate: tachycardic GI soft to palpation, non-tender and non-distended Extremity no clubbing, cyanosis or edema Skin no rashes or lesions noted Neuro CN's II-XII intact bilaterally Psych mental status grossly normal Lab / Micro Data Result Diagrams: 01/17/22 06:30 01/17/22 06:30 Labs: Laboratory Results - last 24 hr 01/17/22 01:25: WBC Cancelled, Corrected WBC Cancelled, RBC Cancelled, Hgb Cance lled, Hct Cancelled, MCV Cancelled, MCH Cancelled, MCHC Cancelled, RDW Std Deviation Cancelled, RDW Coeff of Eboni Cancelled, Plt Count Cancelled, MPV Cancelled, Immature Gran % (Auto) Cancelled, Neut % (Auto) Cancelled, Lymph % (Auto) Cancelled, [place] % (Auto) Cancelled, Eos % (Auto) Cancelled, Baso % (Auto) Cancelled, Absolute Neuts (auto) Cancelled, Absolute Lymphs (auto) Cancelled, Total Counted Cancelled, Neutrophils % (Manual) Cancelled, Band Neutrophils % Cancelled, Lymphocytes % (Manual) Cancelled, Monocytes % (Manual) Cancelled, Eosinophils % (Manual) Cancelled, Basophils % (Manual) Cancelled, Metamyelocytes % Cancelled, Myelocytes % Cancelled, Promyelocytes % Cancelled, Blast Cells % Cancelled, Plasma Cell % (Manual) Cancelled, Other Cells % Cancelled, Nucleated RBC % Cancelled, Nucleated RBCs/100 WBC Cancelled, Differential Comment Cancelled, Diff Path Review Cancelled, Hypersegmented Neuts Cancelled, Atypical Lymphocytes Cancelled, Reactive Lymphocytes Cancelled, Smudge Cells Cancelled, Toxic Granulation Cancelled, Toxic Vacuolation Cancelled, Dohle Bodies Cancelled, Aaron Rods Cancelled, Platelet Estimate Cancelled, Plt Morphology Comment Cancelled, RBC Morphology Cancelled, Polychromasia Cancelled, Hypochromasia Cancelled, Poikilocytosis Cancelled, Basophilic Stippling Cancelled, Anisocytosis Cancelled, Microcytosis Cancelled, Macrocytosis Cancelled, Spherocytes Cancelled, Sickle Cells Cancelled, Target Cells Cancelled, Tear Drop Cells Cancelled, Ovalocytes Cancelled, Stomatocytes Cancelled, Jain-Cooper Bodies Cancelled, [place] Cells Cancelled, Bite Cells Cancelled, Crenated Cell Cancelled, Acanthocytes (Spur) Cancelled, Rouleaux Cancelled, Schistocytes Cancelled 01/17/22 01:25: D-Dimer Quant (PE/DVT) 1.94 H* 01/17/22 01:25: Sodium 137, Potassium 3.9, Chloride 104, Carbon Dioxide 25.0, Anion Gap 8, BUN 15, Creatinine 1.02, Estim Creat Clear Calc 47.33, Est GFR (MDRD) Af Amer 68, Est GFR (MDRD) Non-Af 56 L, BUN/Creatinine Ratio 14.7, Glucose 89, Calcium 9.2, Troponin I High Sens 16 01/17/22 01:35: COVID-19 (MARGARITA) Detected 01/17/22 02:10: B-Natriuretic Peptide 370.1 H 01/17/22 02:10: WBC 12.0 H, RBC 4.06 L, Hgb 13.1, Hct 40.5, MCV 99.8 H, MCH 32.3 H, MCHC 32.3, RDW Std Deviation 47.6 H, RDW Coeff of Eboni 12.9, Plt Count 305, MPV 9.2, Immature Gran % (Auto) 0.600, Neut % (Auto) 84.9 H, Lymph % (Auto) 7.9 L, [place] % (Auto) 5.5, Eos % (Auto) 0.8, Baso % (Auto) 0.3, Absolute Neuts (auto) 10.2 H, Absolute Lymphs (auto) 0.95, Nucleated RBC % 0 01/17/22 06:30: Sodium 136, Potassium 3.0 L, Chloride 100, Carbon Dioxide 21.0, Anion Gap 15, BUN 15, Creatinine 1.11 H, Estim Creat Clear Calc 43.50, Est GFR (MDRD) Af Amer 61, Est GFR (MDRD) Non-Af 51 L, BUN/Creatinine Ratio 13.5, Glucose 135 H, Calcium 8.3 L, Magnesium 1.3 L, Ferritin 128, Total Bilirubin 0.60, AST 33, ALT 36, Alkaline Phosphatase 57, Lactate Dehydrogenase 233, C- React Prot Ext Range 29.50 H, Total Protein 6.5, Albumin 3.3, Globulin 3.2, Albumin/Globulin Ratio 1.0 01/17/22 06:30: Procalcitonin 0.49 H 01/17/22 06:30: WBC 16.0 H, RBC 4.02 L, Hgb 13.2, Hct 38.5, MCV 95.8, MCH 32.8 H , MCHC 34.3 D, RDW Std Deviation 45.9 H, RDW Coeff of [place] 13.1, Plt Count 292, MPV 9.6, Immature Gran % (Auto) 0.700, Neut % (Auto) 94.1 H, Lymph % (Auto) 1.4 L, [place] % (Auto) 3.6, Eos % (Auto) 0.0, Baso % (Auto) 0.2, Absolute Neuts (auto) 15.1 H, Absolute Lymphs (auto) 0.23 L, Nucleated RBC % 0, Differential Comment SCANNED Micro: Microbiology 01/17/22 01:35 Mucosa - Nasopharyngeal Respiratory Panel (PCR) - Final 01/17/22 05:45 Urine, Clean Catch Legionella Antigen - Final 01/17/22 05:45 Urine, Clean Catch Streptococcus pneumoniae Antigen (M - Final Radiology Impression Chest X-Ray 01/17/22 01:30 IMPRESSION: Interval development of peribronchial cuffing indicating bronchial wall inflammation/bronchitis. Interval development of minimal patchy pneumonia in the right lower lung. Electronically Signed: Sheng Duggan MD at 2:23 EDT , Chest CTA 01/17/22 01:58 IMPRESSION: Negative for PE. No thoracic aortic dissection identified. Moderate central and subpleural groundglass opacities which may be due to pulmonary edema given the associated basilar interstitial thickening and small associated pleural effusions. Pneumonia such as Covid pneumonia felt less likely, but not excluded. Electronically Signed: Sheng Duggan MD at 5:06 EDT ,
[2022-01-17] MEDS: Magnesium Chloride 64 MG Delay Rel.Tablet 128 MG PO (13:17)
[2022-01-17] MEDS: Potassium Chloride Oral Tablet 20 MEQ 40 MEQ PO (13:18)
--- NOTE | 2022-01-17 13:20 | CASEMGMT ---
JUANITA GOMEZ Face to Face with patient for initial transition planning/care coordination assessment. RN CM introduced self and role at [facility]. Patient lying in bed, alert and oriented. Patient willing to participate in assessment and is able to answer all questions appropriately. Care providers, pharmacy, and demographics verified. Patient wishes to discharge home, denies need for home health at this time. Patient states she has no further needs or concerns at this time. CM to follow for discharge planning needs that may arise. PCP: Rosalee Specialists: Aminata, saxophone teacher; Mimi ENT; Ike, urologist Preferred Pharmacy: [facility] Insurance: [employer] [facility] Prescription Benefit: yes Living Will/HPOA: yes, son Andrew Gutierres LNOK: son, friend Living Arrangements: Patient lives alone in split level home with 3-7 railing between levels. Patient states she is independent and able to ambulate stair at home. Patient has friend that assists with cleaning and laundry Transportation: son, friend DME/HHC: Patient states she has grab bars, cane, walker at home. No previous HHC or SNF. Patient states she has no preferences for DME. Disposition Plan: Patient to discharge home with family support and follow-up plans in place. Will monitor for home oxygen at discharge. Marlyn THOMPSON, RN, CM
[2022-01-17] MEDS: Potassium Chloride Oral Tablet 20 MEQ PO (16:56)
[2022-01-17] MEDS: Atorvastatin Calcium 20 MG Tablet PO (22:20)
[2022-01-17] MEDS: CLIDINIUM BR PO (23:42)
[2022-01-17] MEDS: CHLORDIAZEPOXIDE PO (23:42)
[2022-01-18] VITALS (11 sets, daily range): BP systolic 115–157; BP diastolic 69–89; PULSE 65–84; RESP 16–18; TEMP 36.4–36.8; O2SAT 94–96
--- NOTE | 2022-01-18 05:49 | PCM.PN.INT ---
Assessment & Plan Assessment/Plan (1) Respiratory failure: QUALIFIERS: Chronicity: acute Respiratory failure complication: hypoxia Qualified Code(s): J96.01 - Acute respiratory failure with hypoxia PLAN: RECOMMENDATIONS: 1. Encourage incentive spirometer use and mobilize patient as tolerated. 2. COVID management per ID recommendations. 3. Continue home antihypertensives. 4. Additional diuresis, if needed. 5. Given the patient's lack of further ICU or pulmonary needs, will sign off. Please call with any additional questions. IMPRESSIONS: 1. Acute hypoxemic respiratory failure While the patient initially tested positive for COVID through a rapid antigen test, I do feel that it is more likely that her symptoms were precipitated by a panic attack and subsequent hypertensive emergency leading to a degree of pulmonary edema. It is unclear as to whether the patient may have experienced a paroxysmal episode of atrial fibrillation as well. The patient responded quite avidly to the use of diuretics and BiPAP therapy, which certainly suggests that pulmonary edema led to her acute decompensation as opposed to a pulmonary inflammatory process associated with COVID-19. The patient continues to maintain appropriate oxygen saturations on room air. Plan to continue remdesivir per ID recommendations. 2. History of coronary artery disease status post PCI/ischemic cardiomyopathy/paroxysmal atrial fibrillation Continue home cardiac medication regimen. 3. Generalized anxiety disorder/depression/hypertension/hyperlipidemia Complicates care, management, recovery and prognosis. The patient would likely benefit from being on some form of baseline antidepressant/anxiolytic therapy on an outpatient basis. This note was generated with [employer] dictation software. It may contain incorrect words, spelling, and punctuation that were not noted in checking the note before signing. Subjective Subjective The patient was seen and examined at the bedside this morning. Events from the last 24 hours have been reviewed. The patient is currently afebrile, hemodynamically stable and maintaining appropriate oxygen saturations on room air. Following evaluation by infectious diseases yesterday, the decision was made to keep the patient on remdesivir. Objective Data Objective Data The patient's most recent lab work, culture data and imaging studies have all been personally reviewed. COVID PCR was positive on January 17. Vital Signs: Vital Signs Temp Pulse Resp BP Pulse Ox 98.2 F 79 16 115/69 96 01/18/22 03:48 01/18/22 04:38 01/18/22 03:48 01/18/22 03:48 01/18/22 03:48 Oxygen Flow Rate (L/min) 12 Oxygen Delivery Method Room Air Weight: 75.3 kg Body Mass Index (BMI) 25.2 Intake & Output: Intake and Output for Last 24 Hours 01/16/22 01/17/22 01/18/22 23:59 23:59 23:59 Intake Total 717.5 / 1017.5 300 / 300 Output Total 1350 / 1350 Balance -632.5 / -332.5 300 / 300 Lab / Micro Data Attestation: I reviewed the patient's lab results. Result Diagrams: 01/18/22 06:16 01/18/22 06:16 Labs: Laboratory Results - last 24 hr 01/17/22 06:30: Sodium 136, Potassium 3.0 L, Chloride 100, Carbon Dioxide 21.0, Anion Gap 15, BUN 15, Creatinine 1.11 H, Estim Creat Clear Calc 43.50, Est GFR (MDRD) Af Amer 61, Est GFR (MDRD) Non-Af 51 L, BUN/Creatinine Ratio 13.5, Glucose 135 H, Calcium 8.3 L, Magnesium 1.3 L, Ferritin 128, Total Bilirubin 0.60, AST 33, ALT 36, Alkaline Phosphatase 57, Lactate Dehydrogenase 233, C-React Prot Ext Range 29.50 H, Total Protein 6.5, Albumin 3.3, Globulin 3.2, Albumin/Globulin Ratio 1.0 01/17/22 06:30: Procalcitonin 0.49 H 01/17/22 06:30: WBC 16.0 H, RBC 4.02 L, Hgb 13.2, Hct 38.5, MCV 95.8, MCH 32.8 H, MCHC 34.3 D, RDW Std Deviation 45.9 H, RDW Coeff of Eboni 13.1, Plt Count 292, MPV 9.6, Immature Gran % (Auto) 0.700, Neut % (Auto) 94.1 H, Lymph % (Auto) 1.4 L, [place] % (Auto) 3.6, Eos % (Auto) 0.0, Baso % (Auto) 0.2, Absolute Neuts (auto) 15.1 H, Absolute Lymphs (auto) 0.23 L, Nucleated RBC % 0, Differential Comment SCANNED Micro: Microbiology 01/17/22 01:35 Mucosa - Nasopharyngeal Respiratory Panel (PCR) - Final 01/17/22 05:45 Urine, Clean Catch Legionella Antigen - Final 01/17/22 05:45 Urine, Clean Catch Streptococcus pneumoniae Antigen (M - Final Physical Exam Const alert and no apparent distress General Appearance: cooperative HEENT normocephalic, head/scalp atraumatic and moist oral mucous membranes Eyes PERRL, EOMs intact bilaterally and conjunctivae normal Neck supple General: trachea midline Chest inspection of chest normal Resp Auscultation: diminished lung sounds; Negative for rales, rhonchi or wheezes Cardio regular rate and regular rhythm GI normal to inspection, nondistended, normoactive bowel sounds Extremity no clubbing, cyanosis or edema Skin no rashes or lesions noted Neuro oriented x3, CN's II-XII intact bilaterally and moves all extremities Psych cooperative and affect normal Charges/Coding Visit Charges Inpatient E&M: 95500 Subs Hosp L2
[2022-01-18 06:31] LABS: Absolute Lymphocyte Count 0.57 X10^3/uL (0.83-4.51); Absolute Neutrophil Count 15.2 X10^3/uL (2.0-7.7); Basophil# 0.02 X10^3/uL; Basophil% 0.1 % (0-1); Hematocrit 38.8 % (37-47); Hemoglobin 12.8 g/dL (12.0-15.0); Lymphocyte # 0.57 X10^3/ul (0.83-4.51); Lymphocyte % 3.3 % (19-41); Mean Corpuscular Hgb 32.4 pg (27.0-32.0); Mean Corpuscular Volume 98.2 fL (81-99); Mean Platelet Vol. 9.6 fl (6.2-12.0); Monocyte# 1.03 X10^3/uL; NRBC Flagged by Analyzer 0 % (0-5); Neutrophil # 15.24 X10^3/uL (2.7-7.7); Neutrophil % 89.1 % (47-70); POSITIVE DIFFERENTIAL YES; Platelet Count 299 K/mm3 (150-450); RBC Distribution Width CV 13.1 % (11.6-14.6); RBC Distribution Width SD 47.1 fl (35.1-43.9); Red Blood Count 3.95 M/mm3 (4.2-5.4); White Blood Count 17.1 K/mm3 (4.4-11.0)
[2022-01-18 06:33] LABS: Differential Indicated SCAN CRITERIA MET
[2022-01-18] MEDS: 0.9% Saline Lock 10 ML Syringe IV ×2 (06:48→22:55)
[2022-01-18] MEDS: CROMOLYN SODIUM 20 MG/ML 200 MG PO ×4 (06:52→21:47)
[2022-01-18 06:57] LABS: Differential Comment SCANNED
[2022-01-18 07:00] LABS: AST(SGOT) 49 U/L (15-37); Alanine Aminotransfer ALT/SGPT 35 U/L (13-56); Alkaline Phosphatase 48 U/L (45-117); Anion Gap 6 (5-15); BUN 26 mg/dL (7-18); BUN/Creat Ratio 23.2 RATIO (10-20); Bilirubin, Direct 0.13 mg/dL (0.00-0.30); Calcium,Total 8.8 mg/dL (8.5-10.1); Chloride 103 mmol/L (98-107); Creatinine, Serum 1.12 mg/dL (0.55-1.02); EST Glomerular Filtration Rate 50 mL/min (>60); Est Glom Filt Rate - Afr Amer 61 mL/min (>60); Estimated Creatinine Clearance 43.11 ml/min; Globulin 3.6 g/dL (2.2-4.2); Glucose 121 mg/dL (74-106); Magnesium 1.8 mg/dL (1.6-2.6); Potassium 4.2 mmol/L (3.5-5.1); Protein, Total 6.6 g/dL (6.4-8.2); Sodium Level 135 mmol/L (136-145)
--- NOTE | 2022-01-18 07:19 | PCM.PN.HOSP ---
Subjective Subjective Patient seen has remained relatively stable currently maintaining adequate oxygen saturation on room air. Today is second day of her remdesivir plan is for patient to be discharged following her third day of remdesivir once she maintains her current status. Objective Data Objective Data Vital Signs: Vital Signs Temp Pulse Resp BP Pulse Ox 98.2 F 74 16 115/69 96 01/18/22 03:48 01/18/22 06:37 01/18/22 03:48 01/18/22 03:48 01/18/22 03:48 Oxygen Flow Rate (L/min) 12 Oxygen Delivery Method Room Air Weight: 75.3 kg Body Mass Index (BMI) 25.2 Intake & Output: Intake and Output for Last 24 Hours 01/16/22 01/17/22 01/18/22 23:59 23:59 23:59 Intake Total 717.5 / 1017.5 400 / 400 Output Total 1350 / 1350 Balance -632.5 / -332.5 400 / 400 Lab / Micro Data Result Diagrams: 01/18/22 06:16 01/18/22 06:16 Labs: Laboratory Results - last 24 hr 01/17/22 06:30: Sodium 136, Potassium 3.0 L, Chloride 100, Carbon Dioxide 21.0, Anion Gap 15, BUN 15, Creatinine 1.11 H, Estim Creat Clear Calc 43.50, Est GFR (MDRD) Af Amer 61, Est GFR (MDRD) Non-Af 51 L, BUN/Creatinine Ratio 13.5, Glucose 135 H, Calcium 8.3 L, Magnesium 1.3 L, Ferritin 128, Total Bilirubin 0.60, AST 33, ALT 36, Alkaline Phosphatase 57, Lactate Dehydrogenase 233, C-React Prot Ext Range 29.50 H, Total Protein 6.5, Albumin 3.3, Globulin 3.2, Albumin/Globulin Ratio 1.0 01/17/22 06:30: Procalcitonin 0.49 H 01/17/22 06:30: Differential Comment SCANNED 01/18/22 06:16: WBC 17.1 H, RBC 3.95 L, Hgb 12.8, Hct 38.8, MCV 98.2, MCH 32.4 H, MCHC 33.0, RDW Std Deviation 47.1 H, RDW Coeff of Eboni 13.1, Plt Count 299, MPV 9.6, Immature Gran % (Auto) 1.500 H, Neut % (Auto) 89.1 H, Lymph % (Auto) 3.3 L, [place] % (Auto) 6.0, Eos % (Auto) 0.0, Baso % (Auto) 0.1, Absolute Neuts (auto) 15.2 H, Absolute Lymphs (auto) 0.57 L, Nucleated RBC % 0, Differential Comment SCANNED 01/18/22 06:16: Sodium 135 L, Potassium 4.2, Chloride 103, Carbon Dioxide 26.0, Anion Gap 6, BUN 26 H, Creatinine 1.12 H, Estim Creat Clear Calc 43.11, Est GFR (MDRD) Af Amer 61, Est GFR (MDRD) Non-Af 50 L, BUN/Creatinine Ratio 23.2 H, Glucose 121 H, Calcium 8.8, Magnesium 1.8, Total Bilirubin 0.50, Direct Bilirubin 0.13, AST 49 H, ALT 35, Alkaline Phosphatase 48, Total Protein 6.6, Albumin 3.0 L, Globulin 3.6 Micro: Microbiology 01/17/22 01:35 Mucosa - Nasopharyngeal Respiratory Panel (PCR) - Final 01/17/22 05:45 Urine, Clean Catch Legionella Antigen - Final 01/17/22 05:45 Urine, Clean Catch Streptococcus pneumoniae Antigen (M - Final Physical Exam Narrative GENERAL: cooperative HEENT: Atraumatic; EYES; Anicteric, Normal Conjunctiva NECK; supple, normal thyroid, RESPIRATORY: Diminished to auscultation CARDIOVASCULAR: Regular S1 S2, GI: soft, normoactive bowel sounds, : No Renal angle tenderness; EXTREMITIES: No edema, no clubbing, MUSCULOSKELETAL: no muscle wasting NEURO: Awake; no lateralizing signs. SKIN: No Rash PSYCH; Flat affect Assessment & Plan Assessment/Plan (1) COVID-19: (2) Respiratory failure: QUALIFIERS: Chronicity: acute Respiratory failure complication: hypoxia Qualified Code(s): J96.01 - Acute respiratory failure with hypoxia PLAN: Patient is a 76-year-old lady with multiple comorbidities admitted with shortness of breath, imaging studies obtained on admission did show Moderate central and subpleural groundglass opacities which may be due to pulmonary edema given the associated basilar interstitial thickening andsmall associated pleural effusions patient COVID assay came back positive admitted to a monitored bed for subsequent management 1. Acute dyspnea (acute hypoxic respiratory failure ruled out) ? Secondary to COVID-19 pneumonia patient admitted to monitored bed managed with supplemental oxygen in addition to remdesivir and Decadron with consultation placed to pulmonary medicine -01/18/2022atient seen has remained relatively stable currently maintaining adequate oxygen saturation on room air. Today is second day of her remdesivir plan is for patient to be discharged following her third day of remdesivir once she maintains her current status. 2. Paroxysmal A. fib ? Rate controlled, recommendation was made for patient to start Eliquis during the previous admission she declined 3. Coronary artery disease ? History of previous STEMI on 08/08/2021 with subsequent successful PCI with MIC to LAD PTCA site diagonal branch as well as RCA lesion. Left heart catheterization performed in September demonstrated patent stents 4. Hypertension - Blood pressure controlled, home medications continued with dose adjustment as needed 5. Dyslipidemia -Patient is on statin therapy, continued at home dose 6. Allergic rhinitis ? Patient is on cetirizine 7. DVT prophylaxis ? On enoxaparin 8. Hypomagnesemia -Corrected for protocol, subsequent magnesium level ordered for monitoring 9. Hypokalemia -Corrected per protocol, subsequent potassium level ordered for monitoring Charges/Coding Visit Charges Inpatient E&M: 25941 Subs Hosp L2
[2022-01-18] MEDS: Enoxaparin 30 MG/0.3 ML Syringe SC (09:45)
[2022-01-18] MEDS: Nitrofurantoin Macrocrystals 100 MG Capsule 50 MG PO (09:50)
[2022-01-18] MEDS: CLIDINIUM BR PO (09:51)
[2022-01-18] MEDS: CHLORDIAZEPOXIDE PO (09:51)
[2022-01-18] MEDS: predniSONE 5 MG Tablet PO (09:53)
[2022-01-18] MEDS: amLODIPine 2.5 MG Tablet 1.25 MG PO (09:54)
[2022-01-18] MEDS: Metoprolol Tartrate 25 MG Tablet 12.5 MG PO ×2 (09:55→21:48)
[2022-01-18] MEDS: Atorvastatin Calcium 20 MG Tablet PO (21:48)
[2022-01-19] VITALS (7 sets, daily range): BP systolic 145–147; BP diastolic 71–74; PULSE 56–60; RESP 16–18; TEMP 35.7–36.6; O2SAT 93–98
[2022-01-19] MEDS: CROMOLYN SODIUM 20 MG/ML 200 MG PO ×2 (06:52→10:51)
[2022-01-19 07:03] LABS: Absolute Lymphocyte Count 1.52 X10^3/uL (0.83-4.51); Absolute Neutrophil Count 11.9 X10^3/uL (2.0-7.7); Basophil# 0.01 X10^3/uL; Basophil% 0.1 % (0-1); Hematocrit 40.4 % (37-47); Hemoglobin 12.9 g/dL (12.0-15.0); Lymphocyte # 1.52 X10^3/ul (0.83-4.51); Lymphocyte % 10.3 % (19-41); Mean Corp Hgb Conc 31.9 g/dL (32-36); Mean Corpuscular Hgb 31.7 pg (27.0-32.0); Mean Corpuscular Volume 99.3 fL (81-99); Monocyte# 1.17 X10^3/uL; Monocyte% 7.9 % (0-10); NRBC Flagged by Analyzer 0 % (0-5); Neutrophil # 11.93 X10^3/uL (2.7-7.7); Neutrophil % 81.1 % (47-70); Platelet Count 325 K/mm3 (150-450); RBC Distribution Width CV 13.2 % (11.6-14.6); Red Blood Count 4.07 M/mm3 (4.2-5.4); White Blood Count 14.7 K/mm3 (4.4-11.0)
--- NOTE | 2022-01-19 07:43 | PCM.PN.HOSP ---
Subjective Subjective Patient still not requiring oxygen supplementation. Plan for patient to be discharged after her third dose of remdesivir Objective Data Objective Data Vital Signs: Vital Signs Temp Pulse Resp BP Pulse Ox 96.3 F L 56 L 16 145/74 H 96 01/19/22 03:43 01/19/22 06:31 01/19/22 03:43 01/19/22 03:43 01/19/22 03:43 Oxygen Flow Rate (L/min) 12 Oxygen Delivery Method Room Air Weight: 75.3 kg Body Mass Index (BMI) 25.2 Intake & Output: Intake and Output for Last 24 Hours 01/17/22 01/18/22 01/19/22 23:59 23:59 23:59 Intake Total 717.5 / 1017.5 1667.75 / 2067.75 600 / 600 Output Total 1350 / 1350 Balance -632.5 / -332.5 1667.75 / 2067.75 600 / 600 Lab / Micro Data Result Diagrams: 01/19/22 06:26 01/19/22 06:26 Labs: Laboratory Results - last 24 hr 01/19/22 06:26: WBC 14.7 H, RBC 4.07 L, Hgb 12.9, Hct 40.4, MCV 99.3 H, MCH 31.7, MCHC 31.9 L, RDW Std Deviation 48.0 H, RDW Coeff of [place] 13.2, Plt Count 325, MPV 10.0, Immature Gran % (Auto) 0.600, Neut % (Auto) 81.1 H, Lymph % (Auto) 10.3 L, [place] % (Auto) 7.9, Eos % (Auto) 0.0, Baso % (Auto) 0.1, Absolute Neuts (auto) 11.9 H, Absolute Lymphs (auto) 1.52, Nucleated RBC % 0 Micro: Microbiology 01/17/22 01:35 Mucosa - Nasopharyngeal Respiratory Panel (PCR) - Final 01/17/22 05:45 Urine, Clean Catch Legionella Antigen - Final 01/17/22 05:45 Urine, Clean Catch Streptococcus pneumoniae Antigen (M - Final Physical Exam Narrative GENERAL: cooperative HEENT: Atraumatic; EYES; Anicteric, Normal Conjunctiva NECK; supple, normal thyroid, RESPIRATORY: Diminished to auscultation CARDIOVASCULAR: Regular S1 S2, GI: soft, normoactive bowel sounds, : No Renal angle tenderness; EXTREMITIES: No edema, no clubbing, MUSCULOSKELETAL: no muscle wasting NEURO: Awake; no lateralizing signs. SKIN: No Rash PSYCH; Flat affect Assessment & Plan Assessment/Plan (1) COVID-19: (2) Respiratory failure: QUALIFIERS: Chronicity: acute Respiratory failure complication: hypoxia Qualified Code(s): J96.01 - Acute respiratory failure with hypoxia PLAN: Patient is a 76-year-old lady with multiple comorbidities admitted with shortness of breath, imaging studies obtained on admission did show Moderate central and subpleural groundglass opacities which may be due to pulmonary edema given the associated basilar interstitial thickening andsmall associated pleural effusions patient COVID assay came back positive admitted to a monitored bed for subsequent management 1. Acute dyspnea (acute hypoxic respiratory failure ruled out) ? Secondary to COVID-19 pneumonia patient admitted to monitored bed managed with supplemental oxygen in addition to remdesivir and Decadron with consultation placed to pulmonary medicine -01/18/2022atient seen has remained relatively stable currently maintaining adequate oxygen saturation on room air. Today is second day of her remdesivir plan is for patient to be discharged following her third day of remdesivir once she maintains her current status. 2. Paroxysmal A. fib ? Rate controlled, recommendation was made for patient to start Eliquis during the previous admission she declined 3. Coronary artery disease ? History of previous STEMI on 08/08/2021 with subsequent successful PCI with MIC to LAD PTCA site diagonal branch as well as RCA lesion. Left heart catheterization performed in September demonstrated patent stents 4. Hypertension - Blood pressure controlled, home medications continued with dose adjustment as needed 5. Dyslipidemia -Patient is on statin therapy, continued at home dose 6. Allergic rhinitis ? Patient is on cetirizine 7. DVT prophylaxis ? On enoxaparin 8. Hypomagnesemia -Corrected for protocol, subsequent magnesium level ordered for monitoring 9. Hypokalemia -Corrected per protocol, subsequent potassium level ordered for monitoring Charges/Coding Visit Charges Inpatient E&M: 25388 Subs Hosp L2
[2022-01-19 07:56] LABS: AST(SGOT) 36 U/L (15-37); Alanine Aminotransfer ALT/SGPT 33 U/L (13-56); Albumin, Serum 2.8 g/dL (3.2-5.0); Alkaline Phosphatase 43 U/L (45-117); Anion Gap 7 (5-15); BUN 29 mg/dL (7-18); Bilirubin, Direct 0.12 mg/dL (0.00-0.30); Calcium,Total 8.2 mg/dL (8.5-10.1); Chloride 105 mmol/L (98-107); Creatinine, Serum 0.85 mg/dL (0.55-1.02); EST Glomerular Filtration Rate 69 mL/min (>60); Est Glom Filt Rate - Afr Amer 83 mL/min (>60); Globulin 3.3 g/dL (2.2-4.2); Glucose 86 mg/dL (74-106); Potassium 3.7 mmol/L (3.5-5.1); Protein, Total 6.1 g/dL (6.4-8.2); Sodium Level 136 mmol/L (136-145)
[2022-01-19] MEDS: Metoprolol Tartrate 25 MG Tablet 12.5 MG PO (08:16)
[2022-01-19] MEDS: amLODIPine 2.5 MG Tablet 1.25 MG PO (08:17)
[2022-01-19] MEDS: predniSONE 5 MG Tablet PO (08:17)
[2022-01-19] MEDS: Nitrofurantoin Macrocrystals 100 MG Capsule 50 MG PO (08:17)
--- NOTE | 2022-01-19 09:57 | DS.PCM_ITS ---
Providers Date of Admission: 01/17/22 Primary Care Physician: Dr. 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 Consulting Provider: Adolfo Ellison Reason for Consult: Resp failure, COVID EMERGENT Consult: No Notified: Yes Date Notified: 01/17/22 Time Notified: 04:58 Method of Notification: Text Reason For Visit: COVID 19 / PNEUMONIA / RESP FAILURE Diagnosis Discharge Diagnosis (1) COVID-19: Status: Acute Code(s): U07.1 - COVID-19 (2) Respiratory failure: Status: Acute Code(s): J96.90 - Respiratory failure, unspecified, unspecified whether with hypoxia or hypercapnia Qualifiers: Chronicity: acute Respiratory failure complication: hypoxia Qualified Code(s): J96.01 - Acute respiratory failure with hypoxia Medications at Discharge Home Medications Premarin 0.625 mg PO DAILY 02/12/14 Gastrocrom 200 mg PO 4X/DAY 01/27/19 olopatadine 0.2 % eye drops 1 drp OPHTHALMIC (EYE) DAILY 01/02/21 hydrocortisone acetate 25 mg rectal suppository 25 mg MA BID PRN 08/20/21 budesonide 32 mcg/actuation nasal spray,aerosol 32 mcg INTRANASAL ONCE PRN 08/30/21 nitrofurantoin macrocrystal 50 mg capsule 50 mg PO DAILY cap 08/30/21 pot bicarb 344 mg-sod bicarb 1,050 mg-citric acid 1,000 mg efferv tab 1 tab PO Q4H PRN 08/30/21 prednisolone acetate 0.12 % eye drops,suspension 1 drp OPHTHALMIC (EYE) Q OTHER DAY ml 08/30/21 prednisone 5 mg tablet 5 mg PO DAILY tab 08/30/21 acetaminophen 1,000 mg PO DAILY PRN 10/09/21 cetirizine [Zyrtec] 10 mg PO DAILY 10/09/21 chlordiazepoxide-clidinium 1 cap PO DAILY PRN 10/09/21 prasugrel 10 mg tablet 10 mg PO DAILY #90 tab 10/11/21 amlodipine 2.5 mg tablet 1.25 mg PO DAILY tab 10/30/21 triamterene 37.5 mg-hydrochlorothiazide 25 mg capsule 1 cap PO DAILY PRN 10/30/21 metoprolol tartrate 25 mg tablet 12.5 mg PO BID tab 11/05/21 atorvastatin 20 mg tablet 20 mg PO QHS #60 tab 12/19/21 potassium chloride 10 mEq tablet,extended release 5 meq PO .PRN PRN #45 tab 12/30/21 dexamethasone [Decadron] 6 mg PO DAILY #7 tab 01/19/22 Hospital Course Operations None Procedures None Summary of Care Provided Minutes Spent on Discharge: 35 Hospital Course: Patient is a 76-year-old lady with multiple comorbidities admitted with shortness of breath, imaging studies obtained on admission did show Moderate central and subpleural groundglass opacities which may be due to pulmonary edema given the associated basilar interstitial thickening andsmall associated pleural effusions patient COVID assay came back positive admitted to a monitored bed for subsequent management 1. Acute dyspnea (acute hypoxic respiratory failure ruled out) ? Secondary to COVID-19 pneumonia patient admitted to monitored bed managed with supplemental oxygen in addition to remdesivir and Decadron with consultation placed to pulmonary medicine -01/18/2022atient seen has remained relatively stable currently maintaining adequate oxygen saturation on room air. Today is second day of her remdesivir plan is for patient to be discharged following her third day of remdesivir once she maintains her current status. 2. Paroxysmal A. fib ? Rate controlled, recommendation was made for patient to start Eliquis during the previous admission she declined 3. Coronary artery disease ? History of previous STEMI on 08/08/2021 with subsequent successful PCI with MIC to LAD PTCA site diagonal branch as well as RCA lesion. Left heart catheterization performed in September demonstrated patent stents 4. Hypertension - Blood pressure controlled, home medications continued with dose adjustment as needed 5. Dyslipidemia -Patient is on statin therapy, continued at home dose 6. Allergic rhinitis ? Patient is on cetirizine 7. DVT prophylaxis ? On enoxaparin 8. Hypomagnesemia -Corrected for protocol, subsequent magnesium level ordered for monitoring 9. Hypokalemia -Corrected per protocol, subsequent potassium level ordered for monitoring Physical Exam Narrative GENERAL: cooperative HEENT: Atraumatic; EYES; Anicteric, Normal Conjunctiva NECK; supple, normal thyroid, RESPIRATORY: Diminished to auscultation CARDIOVASCULAR: Regular S1 S2, GI: soft, normoactive bowel sounds, : No Renal angle tenderness; EXTREMITIES: No edema, no clubbing, MUSCULOSKELETAL: no muscle wasting NEURO: Awake; no lateralizing signs. SKIN: No Rash PSYCH; Flat affect Weight / BMI Weight Weight: 75.3 kg Body Mass Index (BMI) 25.2 ABG / Lab / Microbiology Data Result Diagrams: 01/19/22 06:26 01/19/22 06:26 Laboratory: Laboratory Results - last 24 hr 01/19/22 06:26: WBC 14.7 H, RBC 4.07 L, Hgb 12.9, Hct 40.4, MCV 99.3 H, MCH 31.7, MCHC 31.9 L, RDW Std Deviation 48.0 H, RDW Coeff of [place] 13.2, Plt Count 325, MPV 10.0, Immature Gran % (Auto) 0.600, Neut % (Auto) 81.1 H, Lymph % (Auto) 10.3 L, [place] % (Auto) 7.9, Eos % (Auto) 0.0, Baso % (Auto) 0.1, Absolute Neuts (auto) 11.9 H, Absolute Lymphs (auto) 1.52, Nucleated RBC % 0 01/19/22 06:26: Sodium 136, Potassium 3.7, Chloride 105, Carbon Dioxide 24.0, Anion Gap 7, BUN 29 H, Creatinine 0.85, Estim Creat Clear Calc 56.80, Est GFR (MDRD) Af Amer 83, Est GFR (MDRD) Non-Af 69, BUN/Creatinine Ratio 34.0 H, Glucose 86, Calcium 8.2 L, Total Bilirubin 0.40, Direct Bilirubin 0.12, AST 36, ALT 33, Alkaline Phosphatase 43 L, Total Protein 6.1 L, Albumin 2.8 L, Globulin 3.3 Microbiology: Microbiology 01/17/22 01:35 Mucosa - Nasopharyngeal Respiratory Panel (PCR) - Final 01/17/22 05:45 Urine, Clean Catch Legionella Antigen - Final 01/17/22 05:45 Urine, Clean Catch Streptococcus pneumoniae Antigen (M - Final D/C Instructions Discharge Diet: No restrictions Discharge Activity: Return to Normal Activity and - (Patient was instructed to isolate for 7 additional days) Call your doctor if you observe: Fever of 101 or Higher, Shortness of breath, Fainting spells and Chest pain Meaningful Use Info Meaningful Use Diagnoses (Choose all that apply): None applicable Discharge Plan Admission Admit Date/Time: 01/17/22 04:54 Attending Provider: Bautista Novak Primary Care Provider: Jennie Turk Consulting Providers: Yady Kumar ; Guido Seymour ; Adolfo Ellison Discharge Orders/Prescriptions Prescriptions: New dexamethasone [Decadron] 6 mg tablet 6 mg PO DAILY Qty: 7 RF: 0 Continued olopatadine [Pataday Once Daily Relief] 0.2 % drops 1 drp ophthalmic (eye) DAILY RF: 0 prednisolone acetate 0.12 % drops,suspension 1 drp ophthalmic (eye) Q OTHER DAY RF: 0 prednisone 5 mg tablet 5 mg PO DAILY RF: 0 [place] 344-1,050-1,000 mg tablet, effervescent 1 tab PO Q4H PRN (Reason: STOMACH) RF: 0 budesonide 32 mcg/actuation aerosol 32 mcg intranasal ONCE PRN (Reason: ALLERGIES) RF: 0 Premarin 0.625 MG tablet 0.625 mg PO DAILY RF: 0 Gastrocrom 200 mg PO 4X/DAY RF: 0 nitrofurantoin macrocrystal 50 mg capsule 50 mg PO DAILY RF: 0 cetirizine [Zyrtec] 10 mg Tablet 10 mg PO DAILY RF: 0 acetaminophen 500 mg Tablet 1,000 mg PO DAILY PRN (Reason: Pain) RF: 0 chlordiazepoxide-clidinium 5-2.5 mg capsule 1 cap PO DAILY PRN (Reason: Stomach Upset) RF: 0 hydrocortisone acetate 25 mg suppository 25 mg MA BID PRN (Reason: hemorrhoids) RF: 0 prasugrel [Effient] 10 mg tablet 10 mg PO DAILY Qty: 90 RF: 3 amlodipine 2.5 mg tablet 1.25 mg PO DAILY RF: 0 triamterene-hydrochlorothiazid 37.5-25 mg capsule 1 cap PO DAILY PRN (Reason: elevated bp or edema) RF: 0 metoprolol tartrate 25 mg tablet 12.5 mg PO BID RF: 0 Hold Instructions: ? side effects- dry mouth, hoarse voice atorvastatin 20 mg tablet 20 mg PO QHS Qty: 60 RF: 6 potassium chloride 10 mEq tablet extended release 5 meq PO .PRN PRN (Reason: take along with prn dose of triamterene/hctz) Qty: 45 RF: 3 Referrals / Follow Up: Jennie Turk MD [Primary Care Provider] - Disposition Discharge Orders: Discharge Patient (Routine); Ordered 01/19/22 Ordered By: Dr. Bautista Novak Charges/Coding Visit Charges Inpatient E&M: 99332 Disch Hosp
== END 2022-01-19 13:49 | disposition home or self-care (01) | DRG 177 ==
LOC: ED 04:30 → ICU 06:14 → PCU 06-16 15:26
PROVIDERS: Admitting Provider Family Medicine; Emergency Provider Emergency Medicine; PCP Internal Medicine; Visit Provider Internal Medicine
DX: U07.1 COVID-19 (principal); J81.0 Acute pulmonary edema; I48.0 Paroxysmal atrial fibrillation; J12.82 Pneumonia due to coronavirus disease 2019; I25.10 Atherosclerotic heart disease of native coronary artery without angina pectoris; I16.0 Hypertensive urgency; I25.5 Ischemic cardiomyopathy; I10 Essential (primary) hypertension; J30.2 Other seasonal allergic rhinitis; E78.5 Hyperlipidemia, unspecified; E87.6 Hypokalemia; E83.42 Hypomagnesemia; I25.2 Old myocardial infarction; F32.A Depression, unspecified; G89.29 Other chronic pain; F41.0 Panic disorder [episodic paroxysmal anxiety]; F41.1 Generalized anxiety disorder; Z95.5 Presence of coronary angioplasty implant and graft; Z79.899 Other long term (current) drug therapy; Z79.51 Long term (current) use of inhaled steroids
CPT/HCPCS: 36415; 71045; 71275; 80048; 80053; 80076; 82728; 83615; 83735; 83880; 84145; 84484; 85025; 85379; 86140; 87040; 87449; 87633; 87635; 93005; 94002; 94640; 96365; 96372; 96375; 96376; 99221; 99285; J7030; J7050; Q9967; A4216; G0378; J0248; J1940; U0003; U0005

== ENCOUNTER → 2022-02-18 | Outpatient (CLI) | payer MEDICARE, SELFPAY ==
--- NOTE | 2022-02-18 10:40 | ECHOL_ITS ---
Reason For Study: Cardiomyopathy Procedure This was a limited 2D transthoracic echocardiogram. Limited views were obtained. The study was technically difficult. Patient declined Definity due to multiple medication allergies. Patient was also unable to tolerate laying in the left lateral position for any length of time due to chronic pain. Exam performed in department. Left Ventricle Normal LV size. Left ventricular systolic function is normal. The estimated ejection fraction is 55 %. Unable to assess diastolic dysfunction. No regional wall motion abnormalities noted. Right Ventricle Normal RV size. Normal systolic function. Atria The left atrium is mildly enlarged. Normal right atrium. Mitral Valve There is mild mitral annular calcification. Extension of the mitral annular calcification onto the base of the posterior mitral valve leaflet. Tricuspid Valve Normal tricuspid valve. Trivial tricuspid valve insufficiency. Aortic Valve Trisinus/trileaflet aortic valve. Normal aortic valve. Pulmonic Valve The pulmonic valve is not well visualized. Trivial pulmonic valve insufficiency. Pericardium/Pleural No pericardial effusion. MMode/2D Measurements & Calculations LVIDd: 4.4 cm IVSd: 1.0 cm LA dimension: 4.1 cm LVIDs: 2.8 cm LVPWd: 1.1 cm FS: 36.9 % ECHO/Echo, Limited Study Interpretation Summary Limited views were obtained. The study was technically difficult. Left ventricular systolic function is normal. The estimated ejection fraction is 55 %. The left atrium is mildly enlarged. There is mild mitral annular calcification. Extension of the mitral annular calcification onto the base of the posterior mi tral valve leaflet. Trivial tricuspid valve insufficiency. Trivial pulmonic valve insufficiency. Unable to assess diastolic dysfunction. Ordering Physician: Coy Marte Referring Physician: Jennie Turk M.D. Performed By: Addy Rojas RCS
== END | disposition home or self-care (01) ==
LOC: CVS 10:38
PROVIDERS: PCP Internal Medicine; Referring Provider Nurse Practitioner Family; Visit Provider Nurse Practitioner Family
DX: I42.9 Cardiomyopathy, unspecified (principal); I25.10 Atherosclerotic heart disease of native coronary artery without angina pectoris; I25.5 Ischemic cardiomyopathy; I10 Essential (primary) hypertension
CPT/HCPCS: 93308

== ENCOUNTER → 2022-05-05 | Outpatient (CLI) | payer MEDICARE, SELFPAY | END | disposition home or self-care (01) | LOC: LABSPEC 17:00 | PROVIDERS: PCP Internal Medicine; Referring Provider Obstetrics & Gynecology; Visit Provider Obstetrics & Gynecology | DX: N89.8 Other specified noninflammatory disorders of vagina (principal) | CPT/HCPCS: 87070; 87205 ==

== ENCOUNTER 2022-09-29 13:16 | Emergency (ER) | payer MEDICARE, SELFPAY ==
[2022-09-29 13:24] VITALS: BP 185/101; PULSE 151; RESP 19; TEMP 36.7; O2SAT 99; BMI 24.9
--- NOTE | 2022-09-29 13:50 | NURSING ---
dr pressley paged
[2022-09-29 14:09] VITALS: BP 163/80; PULSE 86; RESP 18
[2022-09-29] MEDS: Metoprolol Tartrate 25 MG Tablet PO (14:09)
--- NOTE | 2022-09-29 14:19 | EX.ED.DYSGE1 ---
HPI History of Present Illness Chief Complaint: Palpitations Informant: patient and EMS Onset/Context/Timing Onset: Today (past 30 min or so) Context: Sudden Onset Timing: Intermittent and Lasts (couple mins) Quality: skipping Location: chest Current Severity: Gone Maximum Severity: Moderate Worsened by: nothing Relieved by: nothing Associated Symptoms Associated Symptoms: none Narrative Narrative: Patient states she felt like she went back into atrial fibrillation this morning. She denies any chest discomfort, dyspnea, lightheadedness or near syncope/syncope. She states she first was diagnosed with it about 1 year ago, around the time she needed a cardiac stent, shortly thereafter. She was put on metoprolol, she has been on 12.5 mg once daily, and states it was discontinued less than 1 week ago because she was feeling really tired and her adult basic studies teacher thought that might have been the reason why. No other recent medication changes. She is on Effient and no anticoagulants. [facility] Medical History Atherosclerotic heart disease of [place] coronary artery without angina pectoris Cellulitis Essential hypertension Fracture of metatarsal of left foot, closed History of carpal tunnel syndrome History of chronic back pain Myocardial infarct Non-STEMI (non-ST elevated myocardial infarction) Presence of stent in coronary artery (~08/08/21) Pulmonary edema Vocal cord granuloma Home Medications conjugated estrogens 0.625 mg tablet (Premarin) 0.625 mg PO DAILY hormones 02/12/14 [History Last Taken 10/09/21] Gastrocrom 200 mg PO 4X/DAY asthma 01/27/19 [History Last Taken 10/09/21] olopatadine 0.2 % eye drops (Pataday Once Daily Relief) 1 drp ophthalmic (eye) DAILY eye health 01/02/21 [History Last Taken Unknown] hydrocortisone acetate 25 mg rectal suppository 25 mg ME BID PRN hemorrhoids 08/20/21 [History Last Taken 10/09/21] budesonide 32 mcg/actuation nasal spray,aerosol 32 mcg intranasal ONCE PRN ALLERGIES 08/30/21 [History Last Taken Unknown] nitrofurantoin macrocrystal 50 mg capsule 50 mg PO DAILY infection 08/30/21 [History Last Taken 10/09/21] pot bicarb 344 mg-sod bicarb 1,050 mg-citric acid 1,000 mg efferv tab (Stephanie-Beaumont Gold) 1 tab PO Q4H PRN STOMACH 08/30/21 [History Last Taken Unknown] prednisolone acetate 0.12 % eye drops,suspension 1 drp ophthalmic (eye) Q OTHER DAY eye health 08/30/21 [History Last Taken 10/08/21] prednisone 5 mg tablet 5 mg PO DAILY FLARE 08/30/21 [History Last Taken 10/09/21] acetaminophen 500 mg tablet 1,000 mg PO DAILY PRN Pain 10/09/21 [History Last Taken 10/08/21] cetirizine 10 mg tablet (Zyrtec) 10 mg PO DAILY ALLERGIES 10/09/21 [History Last Taken 10/09/21] atorvastatin 20 mg tablet 20 mg PO QHS #60 tabs 12/19/21 [Rx Last Taken Unknown] amlodipine 2.5 mg tablet 1.25 mg PO BID #90 tabs 09/01/22 [Rx Last Taken Unknown] prasugrel 10 mg tablet (Effient) 10 mg PO DAILY #90 tabs 09/01/22 [Rx Last Taken Unknown] metoprolol tartrate 25 mg tablet 12.5 mg PO DAILY 09/16/22 [History Last Taken Unknown] potassium chloride 10 mEq tablet,extended release 2.5 meq PO DAILY #90 tabs 09/22/22 [Rx Last Taken Unknown] Allergy/AdvReac Type Severity Reaction Status Date / Time aspirin Allergy Severe Tight in Verified 09/29/22 13:17 throat, Severe tinnitus, nosebleeds, dizzy. clopidogrel Allergy Intermediate Hives Verified 09/29/22 13:17 alprazolam [From Xanax] Allergy Unknown Unknown Verified 09/29/22 13:17 Dent And Derivatives Allergy Unknown Unknown Verified 09/29/22 13:17 mushroom Allergy Unknown Unknown Verified 09/29/22 13:17 paroxetine [From Paxil] Allergy Unknown Unknown Verified 09/29/22 13:17 peanut Allergy Unknown Unknown Verified 09/29/22 13:17 ticagrelor [From Brilinta] Allergy Unknown unknown Verified 09/29/22 13:17 tolmetin [From Tolectin] Allergy Unknown Unknown Verified 09/29/22 13:17 Yeast Allergy Unknown Unknown Verified 09/29/22 13:17 acetaminophen Allergy Other Verified 09/29/22 13:17 [From Darvocet-N] codeine Allergy Other Verified 09/29/22 13:17 fluconazole [From Diflucan] Allergy Rash Verified 09/29/22 13:17 lidocaine Allergy Other Verified 09/29/22 13:17 meperidine HCl [From Demerol] Allergy Other Verified 09/29/22 13:17 metronidazole [From Metrogel] Allergy Rash Verified 09/29/22 13:17 Opioids - Morphine Analogues Allergy Other Verified 09/29/22 13:17 oxycodone HCl [From Percodan] Allergy Other Verified 09/29/22 13:17 oxycodone terephthalate Allergy Other Verified 09/29/22 13:17 [From Percodan] Penicillins Allergy Rash Verified 09/29/22 13:17 propoxyphene napsylate Allergy Other Verified 09/29/22 13:17 [From Darvocet-N] Sulfa (Sulfonamide Allergy Rash Verified 09/29/22 13:17 Antibiotics) amiodarone AdvReac Severe Severe Verified 09/29/22 13:17 urinary retention Beef Containing Products AdvReac Severe Unknown Verified 09/29/22 13:17 carvedilol AdvReac Severe Very Verified 09/29/22 13:17 lightheaded, Dizziness, floating on ceiling feeling. cheese AdvReac Mild Unknown Verified 09/29/22 13:17 egg AdvReac Unknown Unknown Verified 09/29/22 13:17 maltose AdvReac Unknown Unknown Verified 09/29/22 13:17 adhesive tape AdvReac Rash Verified 09/29/22 13:17 Cephalosporins AdvReac Shortness Verified 09/29/22 13:17 of breath cyclobenzaprine AdvReac NEEDS Verified 09/29/22 13:17 [From Flexeril] FOLLOW-UP epinephrine AdvReac NEEDS Verified 09/29/22 13:17 FOLLOW-UP estrogens, conjugated AdvReac NEEDS Verified 09/29/22 13:17 [From Premarin] FOLLOW-UP glycerin AdvReac Itching Verified 09/29/22 13:17 lisinopril AdvReac Shortness Verified 09/29/22 13:17 of breath midazolam [From Versed] AdvReac NEEDS Verified 09/29/22 13:17 FOLLOW-UP ofloxacin [From Floxin] AdvReac NEEDS Verified 09/29/22 13:17 FOLLOW-UP phenol AdvReac Shortness Verified 09/29/22 13:17 of breath salicylates AdvReac Shortness Verified 09/29/22 13:17 of breath spider venom AdvReac Nausea Verified 09/29/22 13:17 Dyes AdvReac Hallucinati Uncoded 09/29/22 13:17 on Family History (Reviewed 09/01/22 @ 14:42 by Coy Marte DIRECTOR OF HOTEL OPERATIONS, DIRECTOR OF HOTEL OPERATIONS-C) Father Rheumatic heart disease Mother Cancer Other Allergies Asthma Surgical History (Reviewed 09/01/22 @ 14:42 by Coy Marte DIRECTOR OF HOTEL OPERATIONS, DIRECTOR OF HOTEL OPERATIONS-C) H/O: hysterectomy History of D&C History of tonsillectomy History of tubal ligation Presence of coronary angioplasty implant and graft (~08/08/21) Social History household members: none Smoking Status: Never smoker alcohol intake: never substance use type: does not use diet: low salt and other what type of physical activity do you participate in: none seatbelt use: always do you feel safe at home: Yes additional social history: ROS ROS ED Constitutional Constitutional ED: Denies chills or fever(s) Eyes Eyes: Denies change in vision or diplopia ENT ENT ED: Denies rhinorrhea or sore throat Cardiovascular Cardiovascular: Reports palpitations and other Details: Bilateral lower extremity edema, stable, mild ; Denies chest pain Respiratory/Chest Respiratory/Chest: Denies cough or dyspnea Gastrointestinal Gastrointestinal: Denies abdominal pain, diarrhea, nausea or vomiting Genitourinary Genitourinary ED: Denies dysuria or hematuria Musculoskeletal Musculoskeletal: Denies back pain or neck pain Integumentary Denies abscess or rash Neurologic Neurologic: Denies headache(s), paresthesias or weakness Psychiatric Psychiatric: Denies anxiety or suicidal thoughts EXAM Physical Exam Const Vital Signs: 09/29/22 13:24 09/29/22 13:24 09/29/22 13:24 Temperature 98.0 F Temperature Source Oral Pulse Rate 151 H Respiratory Rate 19 H Respiratory Effort Normal Non-Labored Respiratory Pattern Normal Blood Pressure 185/101 H Blood Pressure Mean 129 Pulse Ox 99 99 Oxygen Delivery Method Room Air Room Air 09/29/22 14:09 Temperature Temperature Source Pulse Rate 86 Respiratory Rate 18 Respiratory Effort Respiratory Pattern Blood Pressure 163/80 H Blood Pressure Mean Pulse Ox Oxygen Delivery Method Positive well nourished and well developed Constitutional Narrative: Well-appearing, no distress, conversive in full sentences, pleasant General Appearance ED: well developed and NAD HEENT Reports moist mucous membranes normocephalic and atraumatic Eyes PERRL and EOMs intact bilaterally Neck full ROM and supple Resp normal respiratory effort and clear to auscultation bilaterally Cardio no murmurs Rate: tachycardic Rhythm: abnormal rhythm irregularly irregular GI non-tender and non-distended Auscultation: normoactive bowel sounds Palpation: soft Back/Spine no CVA tenderness General Back: other FROM Extremity normal to inspection General Extremety ED: Yes edema; Negative for pulses abnormal or tenderness General Extremity: edema bilateral lower extremity Details: mild; Negative for pulses abnormal Neuro oriented x3, CN's II-XII intact bilaterally and no sensory deficits noted Sensorium / Orientation: awake and alert Motor Exam: strength 5/5 throughout Skin no rashes or lesions noted and no wounds MDM MDM MDM Narrative Medical decision making narrative: EKG was performed initially prior to my evaluation, she is in A-fib with RVR with morphology stable compared with her old EKGs. During my exam, she did appear to be in a sinus rhythm with PVCs, and is asymptomatic a little hypertensive but otherwise normal vital signs. She states she is anxious and stressed about all of this, but reassured that she is back in a normal rhythm. She had frequent PVCs with this, but on reevaluation 30 minutes later, her PVCs resolved and she was in a normal sinus rhythm at a rate of 90. I discussed with her adult basic studies teacher Dr. Coates, he agrees with the patient's desire to go back on the metoprolol 12.5 mg since she knows she at least tolerated that since she has sensitivities to lots of medications. She does not want a try anything else right now, I gave her a dose of 25 mg tartrate here, she will take the 12.5 once daily starting tomorrow and follow-up with cardiology we discussed reasons to return she comfortable with that plan I do not think she needs any other testing emergently right now. Rhythm Strip Rhythm Strip: A-fib Rate: 118 Ectopy: PVC(s) EKG Initial EKG: Attestation: I personally reviewed and interpreted this EKG as follows: Interpretation: No Acute Injury Pattern and Atrial Fibrillation Follow-up EKG: Attestation: I personally reviewed and interpreted this EKG as follows: Interpretation: Sinus Rhythm and No Acute Injury Pattern Comments: PVCs Discharge Plan Triage Chief Complaint: Palpitations ED Provider: Raúl Navarrete Dx/Rx/DC Orders Clinical Impression: Paroxysmal A-fib Instructions: AFib Dc Prescriptions: No Action olopatadine [Pataday Once Daily Relief] 0.2 % drops 1 drp ophthalmic (eye) DAILY prednisolone acetate 0.12 % drops,suspension 1 drp ophthalmic (eye) Q OTHER DAY prednisone 5 mg tablet 5 mg PO DAILY Stephanie-Beaumont Gold 344-1,050-1,000 mg tablet, effervescent 1 tab PO Q4H PRN (Reason: STOMACH) budesonide 32 mcg/actuation aerosol 32 mcg intranasal ONCE PRN (Reason: ALLERGIES) prasugrel [Effient] 10 mg tablet 10 mg PO DAILY Qty: 90 3RF amlodipine 2.5 mg tablet 1.25 mg PO BID Qty: 90 3RF Premarin 0.625 MG tablet 0.625 mg PO DAILY Gastrocrom 200 mg PO 4X/DAY nitrofurantoin macrocrystal 50 mg capsule 50 mg PO DAILY Label Comments: Take 1 capsule by mouth once daily. May increase to 4 times daily for acute UTI for 5 days as needed then resume once daily. Rx Instructions: Take 1 capsule by mouth once daily. May increase to 4 times daily for acute UTI for 5 days as needed then resume once daily. cetirizine [Zyrtec] 10 mg Tablet 10 mg PO DAILY acetaminophen 500 mg Tablet 1,000 mg PO DAILY PRN (Reason: Pain) hydrocortisone acetate 25 mg suppository 25 mg ME BID PRN (Reason: hemorrhoids) atorvastatin 20 mg tablet 20 mg PO QHS Qty: 60 6RF metoprolol tartrate 25 mg tablet 12.5 mg PO DAILY Hold Instructions: 09/19/2022-? side effects potassium chloride 10 mEq tablet extended release 2.5 meq PO DAILY Qty: 90 0RF Primary Care Provider: Jennie Turk Referrals: Jennie Turk MD [Primary Care Provider] - Josias Coates MD [Med Staff - Active Staff] - (call for appt) Activity Restrictions/Additional Instructions: Continue taking your metoprolol 12.5 mg once daily as you did before; first dose 09/30 Disposition Disposition: Home, Self Care
--- NOTE | 2022-09-29 14:28 | EKG12_ITS ---
Test Reason : REPEAT-RHYTHM CHANGE Blood Pressure : / mmHG Vent. Rate : 103 BPM Atrial Rate : 075 BPM P-R Int : 168 ms QRS Dur : 078 ms QT Int : 368 ms P-R-T Axes : 026 -38 073 degrees QTc Int : 482 ms Sinus rhythm with Premature supraventricular complexes and with occasional Premature ventricular comp lexes Left axis deviation Anterolateral infarct , age undetermined , cannot be excluded Abnormal ECG Confirmed by ARNOLDO POLANCO, BINTA ([id number]), order editor CHAD CUEVA ([id number]) on 09/30/2022 10:16:02 AM Referred By: WEN Confirmed By:BINTA MCLAUGHLIN MD
--- NOTE | 2022-09-29 14:28 | EKG12_ITS ---
Test Reason : TACHY Blood Pressure : / mmHG Vent. Rate : 140 BPM Atrial Rate : 000 BPM P-R Int : 000 ms QRS Dur : 072 ms QT Int : 298 ms P-R-T Axes : 000 -40 075 degrees QTc Int : 454 ms Atrial fibrillation with rapid ventricular response Left axis deviation Cannot rule out Anteroseptal infarct , age undetermined Abnormal ECG Confirmed by ARNOLDO POLANCO, BINTA ([id number]), photography editor CHAD CUEVA ([id number]) on 09/30/2022 10:15:44 AM Referred By: WEN/DIALLO Confirmed By:BINTA MCLAUGHLIN MD
== END 2022-09-29 15:00 | disposition home or self-care (01) ==
PROVIDERS: Emergency Provider Emergency Medicine; PCP Internal Medicine; Visit Provider Emergency Medicine
DX: I48.0 Paroxysmal atrial fibrillation (principal); I25.10 Atherosclerotic heart disease of native coronary artery without angina pectoris; I10 Essential (primary) hypertension; R00.2 Palpitations; R60.0 Localized edema
CPT/HCPCS: 93005; 99285

== ENCOUNTER 2022-10-30 03:40 | Observation (INO) | payer MEDICARE, SELFPAY ==
[2022-10-30] VITALS (13 sets, daily range): BP systolic 128–228; BP diastolic 61–114; PULSE 80–96; RESP 16–25; TEMP 36.3–37.2; O2SAT 93–98; BMI 30.9; BMI 27.2
--- NOTE | 2022-10-30 03:55 | RAD_ITS ---
INDICATION: dyspnea EXAMINATION/TECHNIQUE: X-RAY - XR Chest 1 View COMPARISON: 01/17/2022. FINDINGS: LINES/DEVICES: None. LUNGS: Alveolar infiltrates bilaterally. No consolidation. A few scattered calcified granulomata. No pneumothorax. MEDIASTINUM: Unremarkable. CARDIAC SILHOUETTE: Not enlarged. BONES AND SOFT TISSUES: Degenerative changes in the dorsal spine. RAD/Chest 1 View (Portable) IMPRESSION: Bilateral airspace disease pneumonia versus pulmonary edema. Electronically Signed: Dorothy Alejandro MD at 4:45 EDT ,
--- NOTE | 2022-10-30 03:56 | EKG12_ITS ---
Test Reason : DYSRHYTHMIA Blood Pressure : / mmHG Vent. Rate : 088 BPM Atrial Rate : 088 BPM P-R Int : 158 ms QRS Dur : 078 ms QT Int : 360 ms P-R-T Axes : 048 -36 049 degrees QTc Int : 435 ms Sinus rhythm with occasional Premature ventricular complexes and Premature atrial complexes Left axis deviation Low voltage QRS Abnormal ECG Confirmed by CHAD POLANCO, LANE ([id number]), book or script editor CHAD CUEVA ([id number]) on 11/03/2022 12:11:18 P M Referred By: ASHLEY Confirmed By:RADHA BONILLA MD
[2022-10-30 04:03] LABS: Absolute Lymphocyte Count 3.82 X10^3/uL (0.83-4.51); Absolute Neutrophil Count 8.7 X10^3/uL (2.0-7.7); Basophil# 0.06 X10^3/uL; Basophil% 0.4 % (0-1); Eosinophil# 0.11 X10^3/uL; Eosinophils% 0.8 % (0-5); Hematocrit 45.1 % (37-47); Hemoglobin 14.5 g/dL (12.0-15.0); Lymphocyte # 3.82 X10^3/ul (0.83-4.51); Lymphocyte % 28.3 % (19-41); Mean Corp Hgb Conc 32.2 g/dL (32-36); Mean Corpuscular Hgb 32.4 pg (27.0-32.0); Mean Corpuscular Volume 100.7 fL (81-99); Mean Platelet Vol. 9.8 fl (6.2-12.0); Monocyte# 0.73 X10^3/uL; Monocyte% 5.4 % (0-10); NRBC Flagged by Analyzer 0 % (0-5); Neutrophil # 8.69 X10^3/uL (2.7-7.7); Neutrophil % 64.6 % (47-70); Platelet Count 278 K/mm3 (150-450); RBC Distribution Width CV 13.2 % (11.6-14.6); RBC Distribution Width SD 49.5 fl (35.1-43.9); Red Blood Count 4.48 M/mm3 (4.2-5.4); White Blood Count 13.5 K/mm3 (4.4-11.0)
[2022-10-30 04:11] LABS: International Normalized Ratio 0.9; Prothrombin Time (Protime)PT. 12.2 SECONDS (11.7-14.9)
[2022-10-30 04:12] LABS: Partial Thromboplast Time 24.1 Seconds (24.1-36.2)
[2022-10-30 04:20] LABS: Anion Gap 10 (5-15); BUN 22 mg/dL (7-18); BUN/Creat Ratio 19.3 RATIO (10-20); Calcium,Total 8.8 mg/dL (8.5-10.1); Chloride 100 mmol/L (98-107); Creatinine, Serum 1.14 mg/dL (0.55-1.02); EST Glomerular Filtration Rate 49 mL/min (>60); Est Glom Filt Rate - Afr Amer 59 mL/min (>60); Estimated Creatinine Clearance 41.69 ml/min; Glucose 100 mg/dL (74-106); Potassium 3.2 mmol/L (3.5-5.1); Sodium Level 137 mmol/L (136-145); Troponin-I HS (w/2H Reflex) 24 pg/mL (3.0-54.0)
--- NOTE | 2022-10-30 04:27 | EDS_ITS ---
HPI History of Present Illness Chief Complaint: Shortness of Breath Informant: patient and EMS Narrative Narrative: Presents by EMS from home for palpitations. No chest pains. Mild shortness of breath. Reports had shoulder impingement and when this happens she gets palpitations. She had that earlier this evening. She is concerned due to having history of CT with a stent a year ago. She states she is asymptomatic then. She cannot do aspirin or Plavix she is on Effient daily. She is followed by Dr. Coates. Blood pressure elevated I will follow no head aches chest pains or abdominal pain. Stable blood pressure systolic 140s. She states is up because she is scared. Denies nausea or vomiting. Denies cough symptoms. She is 91% on room air placed on oxygen for comfort with a nonrebreather and she is reporting she would like to keep it at this time. Prior similar symptoms: Yes [facility] Medical History Atherosclerotic heart disease of [place] coronary artery without angina pectoris Cellulitis Essential hypertension Fracture of metatarsal of left foot, closed History of carpal tunnel syndrome History of chronic back pain Myocardial infarct Non-STEMI (non-ST elevated myocardial infarction) Presence of stent in coronary artery (~08/08/21) Pulmonary edema Vocal cord granuloma Home Medications conjugated estrogens 0.625 mg tablet (Premarin) 0.625 mg PO DAILY hormones 02/12/14 [History Last Taken 10/09/21] Gastrocrom 200 mg PO 4X/DAY asthma 01/27/19 [History Last Taken 10/09/21] olopatadine 0.2 % eye drops (Pataday Once Daily Relief) 1 drp ophthalmic (eye) DAILY eye health 01/02/21 [History Last Taken Unknown] hydrocortisone acetate 25 mg rectal suppository 25 mg MI BID PRN hemorrhoids 08/20/21 [History Last Taken 10/09/21] budesonide 32 mcg/actuation nasal spray,aerosol 32 mcg intranasal ONCE PRN ALLERGIES 08/30/21 [History Last Taken Unknown] nitrofurantoin macrocrystal 50 mg capsule 50 mg PO DAILY infection 08/30/21 [History Last Taken 10/09/21] pot bicarb 344 mg-sod bicarb 1,050 mg-citric acid 1,000 mg efferv tab (Stephanie- Weems Gold) 1 tab PO Q4H PRN STOMACH 08/30/21 [History Last Taken Unknown] prednisolone acetate 0.12 % eye drops,suspension 1 drp ophthalmic (eye) Q OTHER DAY eye health 08/30/21 [History Last Taken 10/08/21] acetaminophen 500 mg tablet 1,000 mg PO DAILY PRN Pain 10/09/21 [History Last Taken 10/08/21] cetirizine 10 mg tablet (Zyrtec) 10 mg PO DAILY ALLERGIES 10/09/21 [History Last Taken 10/09/21] chlordiazepoxide HCl 5 mg capsule 5 mg PO .PRN PRN agitation #90 caps 10/02/22 [Rx Last Taken Unknown] prednisone 5 mg tablet 10 mg PO DAILY FLARE 10/09/22 [History Last Taken Unknown] potassium chloride 10 mEq tablet,extended release 10 meq PO BID PRN with diazide #180 tabs 10/22/22 [Rx Last Taken Unknown] metoprolol tartrate 25 mg tablet 12.5 mg PO .COMPLEX 10/24/22 [History Last Taken Unknown] atorvastatin 20 mg tablet 20 mg PO QHS Cholesterol 10/30/22 [History Last Taken Unknown] prasugrel 10 mg tablet (Effient) 10 mg PO DAILY blood thinner 10/30/22 [History Last Taken Unknown] Allergy/AdvReac Type Severity Reaction Status Date / Time aspirin Allergy Severe Tight in Verified 10/30/22 03:46 throat, Severe tinnitus, nosebleeds, dizzy. clopidogrel Allergy Intermediate Hives Verified 10/30/22 03:46 alprazolam [From Xanax] Allergy Unknown Unknown Verified 10/30/22 03:46 [place] And Derivatives Allergy Unknown Unknown Verified 10/30/22 03:46 mushroom Allergy Unknown Unknown Verified 10/30/22 03:46 paroxetine [From Paxil] Allergy Unknown Unknown Verified 10/30/22 03:46 peanut Allergy Unknown Unknown Verified 10/30/22 03:46 ticagrelor [From Brilinta] Allergy Unknown unknown Verified 10/30/22 03:46 tolmetin [From Tolectin] Allergy Unknown Unknown Verified 10/30/22 03:46 Yeast Allergy Unknown Unknown Verified 10/30/22 03:46 acetaminophen Allergy Other Verified 10/30/22 03:46 [From Darvocet-N] codeine Allergy Other Verified 10/30/22 03:46 fluconazole [From Diflucan] Allergy Rash Verified 10/30/22 03:46 lidocaine Allergy Other Verified 10/30/22 03:46 meperidine HCl [From Demerol] Allergy Other Verified 10/30/22 03:46 metronidazole [From Metrogel] Allergy Rash Verified 10/30/22 03:46 Opioids - Morphine Analogues Allergy Other Verified 10/30/22 03:46 oxycodone HCl [From Percodan] Allergy Other Verified 10/30/22 03:46 oxycodone terephthalate Allergy Other Verified 10/30/22 03:46 [From Percodan] Penicillins Allergy Rash Verified 10/30/22 03:46 propoxyphene napsylate Allergy Other Verified 10/30/22 03:46 [From Darvocet-N] Sulfa (Sulfonamide Allergy Rash Verified 10/30/22 03:46 Antibiotics) amiodarone AdvReac Severe Severe Verified 10/30/22 03:46 urinary retention Beef Containing Products AdvReac Severe Unknown Verified 10/30/22 03:46 carvedilol AdvReac Severe Very Verified 10/30/22 03:46 lightheaded, Dizziness, floating on ceiling feeling. cheese AdvReac Mild Unknown Verified 10/30/22 03:46 egg AdvReac Unknown Unknown Verified 10/30/22 03:46 maltose AdvReac Unknown Unknown Verified 10/30/22 03:46 adhesive tape AdvReac Rash Verified 10/30/22 03:46 Cephalosporins AdvReac Shortness Verified 10/30/22 03:46 of breath cyclobenzaprine AdvReac NEEDS Verified 10/30/22 03:46 [From Flexeril] FOLLOW-UP epinephrine AdvReac NEEDS Verified 10/30/22 03:46 FOLLOW-UP estrogens, conjugated AdvReac NEEDS Verified 10/30/22 03:46 [From Premarin] FOLLOW-UP glycerin AdvReac Itching Verified 10/30/22 03:46 lisinopril AdvReac Shortness Verified 10/30/22 03:46 of breath midazolam [From Versed] AdvReac NEEDS Verified 10/30/22 03:46 FOLLOW-UP ofloxacin [From Floxin] AdvReac NEEDS Verified 10/30/22 03:46 FOLLOW-UP phenol AdvReac Shortness Verified 03/16/23 03:46 of breath salicylates AdvReac Shortness Verified 10/30/22 03:46 of breath spider venom AdvReac Nausea Verified 10/30/22 03:46 Dyes AdvReac Hallucinati Uncoded 10/30/22 03:46 on Family History Father Rheumatic heart disease Mother Cancer Other Allergies Asthma Surgical History H/O: hysterectomy History of D&C History of tonsillectomy History of tubal ligation Presence of coronary angioplasty implant and graft (~08/08/21) Social History household members: none Smoking Status: Never smoker alcohol intake: never substance use type: does not use diet: low salt and other what type of physical activity do you participate in: none seatbelt use: always do you feel safe at home: Yes additional social history: ROS ROS ED Constitutional Constitutional ED: Denies chills, fever(s) or sweats Eyes Eyes: Denies change in vision ENT ENT ED: Denies dysphagia or sore throat Cardiovascular Cardiovascular: Reports palpitations; Denies chest pain, leg edema or racing heartbeat Respiratory/Chest Respiratory/Chest: Reports dyspnea; Denies cough or dyspnea on exertion Gastrointestinal Gastrointestinal: Denies abdominal pain, diarrhea, nausea or vomiting Genitourinary Genitourinary ED: Denies dysuria, hematuria or urinary frequency Musculoskeletal Musculoskeletal: Denies back pain, extremity pain or neck pain Integumentary Denies rash or wounds Neurologic Neurologic: Denies headache(s), paresthesias or weakness EXAM Physical Exam Const Vital Signs: 10/30/22 03:40 10/30/22 03:46 10/30/22 03:46 Temperature 97.6 F L 97.6 F L Temperature Source Temporal Temporal Pulse Rate 96 93 91 Respiratory Rate 20 H 25 H 23 H Respiratory Effort Respiratory Depth Respiratory Pattern Blood Pressure 228/114 H 228/114 H 228/114 H Blood Pressure Mean 152 152 152 Pulse Ox 96 96 96 Oxygen Delivery Method Non-Rebreather Non-Rebreather Non-Rebreather Oxygen Flow Rate (L/min) 10 10 10 Fraction of Inspired Oxygen (FIO2) 10/30/22 04:16 10/30/22 04:16 10/30/22 05:37 Temperature Temperature Source Pulse Rate 87 Respiratory Rate 20 H Respiratory Effort Short of Breath Respiratory Depth Deep Respiratory Pattern Normal Blood Pressure 187/81 H Blood Pressure Mean 116 Pulse Ox 98 Oxygen Delivery Method Room Air Non-Rebreather Venturi Mask Oxygen Flow Rate (L/min) 10 8 Fraction of Inspired Oxygen (FIO2) 40 10/30/22 06:09 10/30/22 06:18 Temperature 98.6 F Temperature Source Temporal Pulse Rate 80 83 Respiratory Rate 18 20 H Respiratory Effort Respiratory Depth Respiratory Pattern Blood Pressure 145/73 H 182/61 H Blood Pressure Mean 97 101 Pulse Ox 97 98 Oxygen Delivery Method Venturi Mask Venturi Mask Oxygen Flow Rate (L/min) 8 8 Fraction of Inspired Oxygen (FIO2) 40 40 Positive well nourished and well developed Constitutional Narrative: Nonrebreather oxygen. No respiratory distress. General Appearance ED: well developed and NAD HEENT Reports moist mucous membranes normocephalic and atraumatic Eyes PERRL, EOMs intact bilaterally and conjunctivae normal General Eye ED: Yes normal appearance of both eyes Neck no lymphadenopathy and supple General: Negative for tenderness Chest Wall Chest: Negative for tenderness Resp normal respiratory effort and normal air movement Effort and Inspection: symmetric chest movement; Negative for respiratory distress Cardio regular rate, regular rhythm and no murmurs Peripheral Pulses: pulses 2+ throughout GI normal to inspection, nondistended, normoactive bowel sounds and non-tender Palpation: Negative for guarding or rebound tenderness present Back/Spine no CVA tenderness and no thoracic nor lumbar tenderness Extremity normal to inspection General Extremety ED: Negative for edema or tenderness General Extremity: Negative for edema Neuro oriented x3, CN's II-XII intact bilaterally and no sensory deficits noted Sensorium / Orientation: awake and alert Skin no rashes or lesions noted and no wounds MDM MDM MDM Narrative Medical decision making narrative: Interventions / MDM: Differential diagnosis: Palpitations, CHF, pulmonary edema, ACS Diagnosis considered but do not suspect: Pneumothorax, symmetric breath sounds, no pneumo seen on x-ray My EKG interpretation: Sinus rate of 88, no ST or T wave changes PVC noted. Imaging independently reviewed and interpreted by myself: 1 view chest x-ray, congestion versus infiltrates per radiology however she denies any cough symptoms. External documents reviewed: Echocardiogram February 2022 EF of 55% with no wall motion abnormalities, cardiac cath 2020 multiple stents. Test considered but not ordered:N/A ED course: Patient presenting transient palpitations reporting dyspnea she is on a nonrebreather on my evaluation as I turned her down she states her dyspnea was worsened. With her cardiac history work-up was initiated. She has no chest pains. She reports only dyspnea. EKG sinus rhythm PVC noted no acute findings. Patient's chest x-ray no congestion versus infiltrates she has no cough or concerns for infiltrates. Laboratory studies with added BNP ED troponin normal 24 BN P at 331. Creatinine 1.14 potassium 3.2. She given oral potassium and started on Lasix. Rechecked the patient blood pressure systolic 180s from 228. She declined nitroglycerin paste. Patient meeting hypertensive emergency criteria with her vascular congestion and dyspnea. I spoke with hospitalist for admission to PCU. Re-evaluation: stable Disposition discussed with patient/family/significant other: Patient Case discussed with consulting clinician: Hospitalist. Dr. Donohue Lab Data Attestation: I reviewed the patient's lab results. Labs: Laboratory Results - last 24 hr 10/30/22 10/30/22 10/30/22 03:58 03:58 03:58 WBC 13.5 H RBC 4.48 Hgb 14.5 Hct 45.1 MCV 100.7 H MCH 32.4 H MCHC 32.2 RDW Std Deviation 49.5 H RDW Coeff of Eboni 13.2 Plt Count 278 MPV 9.8 Immature Gran % (Auto) 0.500 Neut % (Auto) 64.6 Lymph % (Auto) 28.3 Davidson % (Auto) 5.4 Eos % (Auto) 0.8 Baso % (Auto) 0.4 Absolute Neuts (auto) 8.7 H Absolute Lymphs (auto) 3.82 Nucleated RBC % 0 PT 12.2 INR 0.9 APTT 24.1 Sodium 137 Potassium 3.2 L Chloride 100 Carbon Dioxide 27.0 Anion Gap 10 BUN 22 H Creatinine 1.14 H Estim Creat Clear Calc 41.69 Est GFR (MDRD) Af Amer 59 L Est GFR (MDRD) Non-Af 49 L BUN/Creatinine Ratio 19.3 Glucose 100 Calcium 8.8 Troponin I High Sens 24 B-Natriuretic Peptide 10/30/22 10/30/22 03:58 06:10 WBC RBC Hgb Hct MCV MCH MCHC RDW Std Deviation RDW Coeff of Eboni Plt Count MPV Immature Gran % (Auto) Neut % (Auto) Lymph % (Auto) Davidson % (Auto) Eos % (Auto) Baso % (Auto) Absolute Neuts (auto) Absolute Lymphs (auto) Nucleated RBC % PT INR APTT Sodium Potassium Chloride Carbon Dioxide Anion Gap BUN Creatinine Estim Creat Clear Calc Est GFR (MDRD) Af Amer Est GFR (MDRD) Non-Af BUN/Creatinine Ratio Glucose Calcium Troponin I High Sens 114 H B-Natriuretic Peptide 331.4 H Radiography Diagnostic Testing: Clinical Impression(s) from Imaging Studies Chest X-Ray 10/30/22 03:55 IMPRESSION: Bilateral airspace disease pneumonia versus pulmonary edema. Electronically Signed: Dorothy Alejandro MD at 4:45 EDT , Discharge Plan Dx/Rx/DC Orders Clinical Impression: Hypertensive emergency, Pulmonary vascular congestion, Hypokalemia Disposition Disposition: Acute Care Hospital [facility]
[2022-10-30 05:26] LABS: BNP,B-Type NATRIURETIC PEPTIDE 331.4 pg/mL (0-100)
[2022-10-30] MEDS: Furosemide 40 MG/4 ML Vial IV (05:49)
[2022-10-30] MEDS: Potassium Chloride Oral Tablet 20 MEQ 40 MEQ PO (05:49)
[2022-10-30 06:00] LABS: Reflex Troponin-HS? (from REC) Y
--- NOTE | 2022-10-30 06:20 | HP.PCM.HOS_ITS ---
HPI - General General Date of Admission: 10/30/22 Date of Service: 10/30/22 Chief Complaint: Shortness of breath HPI Narrative COREEN JAY, is a 77 F with a significant history of CAD status post stents who presents to the emergency department with sudden onset shortness of breath that started 15 minutes before she called the paramedics and was brought to the emergency department. Because she was hypoxic she was placed on supplemental o xygen and was brought to emergency department. The shortness of breath was persistent. Associated with her symptoms was chest fluttering. Also patient reports left shoulder pain that she attributes to history of nerve impingement. Because of patient prior history of heart attack on August 08, 2021 she was concerned. She reports weight gain of about 5 pounds in the Symbicort presentation but she attributes to change in diet. She denies increased edema indicating that swelling in the bilateral ankles had gone down on the same week of presentation. She denies paroxysmal nocturnal dyspnea. She sleeps on her side; and elevates her legs secondary to chronic back pain. At the hospital initial systolic blood pressure was in the 220s. Patient was found to have a congestion on chest x-ray. Patient refused nitroglycerin since she has allergy to multiple medications and is concerned about starting a new medication. Patient was given Lasix in the emergency department. At the emergency department patient was placed on a Venturi mask. Patient did not want a supplemental oxygen removed because she was feeling comfortable on oxygen. She reported that because of fluid retention she has recently been prescribed spironolactone [facility] Medical History Atherosclerotic heart disease of [place] coronary artery without angina pectoris Cellulitis Essential hypertension Fracture of metatarsal of left foot, closed History of carpal tunnel syndrome History of chronic back pain Myocardial infarct Non-STEMI (non-ST elevated myocardial infarction) Presence of stent in coronary artery (~08/08/21) Pulmonary edema Vocal cord granuloma Home Medications conjugated estrogens 0.625 mg tablet (Premarin) 0.625 mg PO DAILY hormones 02/12/14 [History Last Taken 10/09/21] Gastrocrom 200 mg PO 4X/DAY IBS 01/27/19 [History Last Taken 10/09/21] olopatadine 0.2 % eye drops (Pataday Once Daily Relief) 1 drp ophthalmic (eye) DAILY eye health 01/02/21 [History Last Taken Unknown] hydrocortisone acetate 25 mg rectal suppository 25 mg ND BID PRN hemorrhoids 08/20/21 [History Last Taken 10/09/21] budesonide 32 mcg/actuation nasal spray,aerosol 32 mcg intranasal ONCE PRN ALLERGIES 08/30/21 [History Last Taken Unknown] nitrofurantoin macrocrystal 50 mg capsule 50 mg PO DAILY infection 08/30/21 [History Last Taken 10/09/21] pot bicarb 344 mg-sod bicarb 1,050 mg-citric acid 1,000 mg efferv tab ([place]phanie[place] Gold) 1 tab PO Q4H PRN STOMACH 08/30/21 [History Last Taken Unknown] prednisolone acetate 0.12 % eye drops,suspension 1 drp ophthalmic (eye) Q OTHER DAY eye health 08/30/21 [History Last Taken 10/08/21] acetaminophen 500 mg tablet 1,000 mg PO TID pain 10/09/21 [History Last Taken 10/08/21] cetirizine 10 mg tablet (Zyrtec) 10 mg PO DAILY ALLERGIES 10/09/21 [History Last Taken 10/09/21] chlordiazepoxide HCl 5 mg capsule 5 mg PO .PRN PRN agitation #90 caps 10/02/22 [Rx Last Taken Unknown] prednisone 5 mg tablet 10 mg PO DAILY FLARE 10/09/22 [History Last Taken Unknown] potassium chloride 10 mEq tablet,extended release 10 meq PO BID PRN with diazide #180 tabs 10/22/22 [Rx Last Taken Unknown] metoprolol tartrate 25 mg tablet 12.5 mg PO .COMPLEX BP 10/24/22 [History Last Taken Unknown] atorvastatin 20 mg tablet 20 mg PO QHS Cholesterol 10/30/22 [History Last Taken Unknown] prasugrel 10 mg tablet (Effient) 10 mg PO DAILY blood thinner 10/30/22 [History Last Taken Unknown] Allergy/AdvReac Type Severity Reaction Status Date / Time aspirin Allergy Severe Tight in Verified 10/30/22 03:46 throat, Severe tinnitus, nosebleeds, dizzy. clopidogrel Allergy Intermediate Hives Verified 10/30/22 03:46 alprazolam [From Xanax] Allergy Unknown Unknown Verified 10/30/22 03:46 [place] Derivatives Allergy Unknown Unknown Verified 10/30/22 03:46 mushroom Allergy Unknown Unknown Verified 10/30/22 03:46 paroxetine [From Paxil] Allergy Unknown Unknown Verified 10/30/22 03:46 peanut Allergy Unknown Unknown Verified 10/30/22 03:46 ticagrelor [From Brilinta] Allergy Unknown unknown Verified 10/30/22 03:46 tolmetin [From Tolectin] Allergy Unknown Unknown Verified 10/30/22 03:46 Yeast Allergy Unknown Unknown Verified 10/30/22 03:46 acetaminophen Allergy Other Verified 10/30/22 03:46 [From Darvocet-N] codeine Allergy Other Verified 10/30/22 03:46 fluconazole [From Diflucan] Allergy Rash Verified 10/30/22 03:46 lidocaine Allergy Other Verified 10/30/22 03:46 meperidine HCl [From Demerol] Allergy Other Verified 10/30/22 03:46 metronidazole [From Metrogel] Allergy Rash Verified 10/30/22 03:46 Opioids - Morphine Analogues Allergy Other Verified 10/30/22 03:46 oxycodone HCl [From Percodan] Allergy Other Verified 10/30/22 03:46 oxycodone terephthalate Allergy Other Verified 10/30/22 03:46 [From Percodan] Penicillins Allergy Rash Verified 10/30/22 03:46 propoxyphene napsylate Allergy Other Verified 10/30/22 03:46 [From Darvocet-N] Sulfa (Sulfonamide Allergy Rash Verified 10/30/22 03:46 Antibiotics) amiodarone AdvReac Severe Severe Verified 10/30/22 03:46 urinary retention Beef Containing Products AdvReac Severe Unknown Verified 10/30/22 03:46 carvedilol AdvReac Severe Very Verified 10/30/22 03:46 lightheaded, Dizziness, floating on ceiling feeling. cheese AdvReac Mild Unknown Verified 10/30/22 03:46 egg AdvReac Unknown Unknown Verified 10/30/22 03:46 maltose AdvReac Unknown Unknown Verified 10/30/22 03:46 adhesive tape AdvReac Rash Verified 10/30/22 03:46 Cephalosporins AdvReac Shortness Verified 10/30/22 03:46 of breath cyclobenzaprine AdvReac NEEDS Verified 10/30/22 03:46 [From Flexeril] FOLLOW-UP epinephrine AdvReac NEEDS Verified 10/30/22 03:46 FOLLOW-UP estrogens, conjugated AdvReac NEEDS Verified 10/30/22 03:46 [From Premarin] FOLLOW-UP glycerin AdvReac Itching Verified 10/30/22 03:46 lisinopril AdvReac Shortness Verified 10/30/22 03:46 of breath midazolam [From Versed] AdvReac NEEDS Verified 10/30/22 03:46 FOLLOW-UP ofloxacin [From Floxin] AdvReac NEEDS Verified 10/30/22 03:46 FOLLOW-UP phenol AdvReac Shortness Verified 10/30/22 03:46 of breath salicylates AdvReac Shortness Verified 10/30/22 03:46 of breath spider venom AdvReac Nausea Verified 10/30/22 03:46 Dyes AdvReac Hallucinati Uncoded 10/30/22 03:46 on Family History Father Rheumatic heart disease Mother Cancer Other Allergies Asthma Surgical History H/O: hysterectomy History of D&C History of tonsillectomy History of tubal ligation Presence of coronary angioplasty implant and graft (~08/08/21) Social History household members: none Smoking Status: Never smoker alcohol intake: never substance use type: does not use diet: low salt and other what type of physical activity do you participate in: none seatbelt use: always do you feel safe at home: Yes additional social history: ROS ROS Narrative Pertinent positives and pertinent negatives as noted in HPI. All other systems were reviewed and are negative Vital Signs Vital Signs Vital Signs: 10/30/22 03:40 10/30/22 03:46 10/30/22 03:46 Temperature 97.6 F L 97.6 F L Temperature Source Temporal Temporal Pulse Rate 96 93 91 Respiratory Rate 20 H 25 H 23 H Respiratory Effort Respiratory Depth Respiratory Pattern Blood Pressure 228/114 H 228/114 H 228/114 H Blood Pressure Mean 152 152 152 Pulse Ox 96 96 96 Oxygen Delivery Method Non-Rebreather Non-Rebreather Non-Rebreather Oxygen Flow Rate (L/min) 10 10 10 Fraction of Inspired Oxygen (FIO2) 10/30/22 04:16 10/30/22 04:16 10/30/22 05:37 Temperature Temperature Source Pulse Rate 87 Respiratory Rate 20 H Respiratory Effort Short of Breath Respiratory Depth Deep Respiratory Pattern Normal Blood Pressure 187/81 H Blood Pressure Mean 116 Pulse Ox 98 Oxygen Delivery Method Room Air Non-Rebreather Venturi Mask Oxygen Flow Rate (L/min) 10 8 Fraction of Inspired Oxygen (FIO2) 40 10/30/22 06:09 Temperature Temperature Source Pulse Rate 80 Respiratory Rate 18 Respiratory Effort Respiratory Depth Respiratory Pattern Blood Pressure 145/73 H Blood Pressure Mean 97 Pulse Ox 97 Oxygen Delivery Method Venturi Mask Oxygen Flow Rate (L/min) 8 Fraction of Inspired Oxygen (FIO2) 40 Weight Weight: 92.2 kg Body Mass Index (BMI) 30.9 Physical Exam Narrative Physical exam: General: Well-nourished, well-developed. Head: Normocephalic, atraumatic, no tenderness Eyes: Vision is grossly intact. EOMI ENT, no trauma, moist mucous membranes, no rhinorrhea Neck: Nontender, No thyromegaly. CVS: Regular rate and rhythm. S1-S2 present. No murmur, gallop or rub. Respiratory : Rales, chest wall nontender, no wheezing Abdomen: Soft, nontender, nondistended, normal bowel sounds, no masses : Deferred Back: Nontender, no CVA tenderness, no midline spinal tenderness, deformities, step-offs Extremities: Edema; bilateral ankles right worse than left. Skin: Normal color, no trauma, abrasions Neuro: Alert, oriented, cranial nerves II through XII grossly intact. Psychiatry: Normal mood. Normal affect. Not depressed. Not anxious. Results Lab / Micro Data Result Diagrams: 10/30/22 03:58 10/30/22 03:58 Labs: Laboratory Results - last 24 hr 10/30/22 03:58: WBC 13.5 H, RBC 4.48, Hgb 14.5, Hct 45.1, MCV 100.7 H, MCH 32.4 H, MCHC 32.2, RDW Std Deviation 49.5 H, RDW Coeff of [place] 13.2, Plt Count 278, MPV 9.8, Immature Gran % (Auto) 0.500, Neut % (Auto) 64.6, Lymph % (Auto) 28.3, [place] % (Auto) 5.4, Eos % (Auto) 0.8, Baso % (Auto) 0.4, Absolute Neuts (auto) 8.7 H, Absolute Lymphs (auto) 3.82, Nucleated RBC % 0 10/30/22 03:58: PT 12.2, INR 0.9, APTT 24.1 10/30/22 03:58: Sodium 137, Potassium 3.2 L, Chloride 100, Carbon Dioxide 27.0, Anion Gap 10, BUN 22 H, Creatinine 1.14 H, Estim Creat Clear Calc 41.69, Est GFR (MDRD) Af Amer 59 L, Est GFR (MDRD) Non-Af 49 L, BUN/Creatinine Ratio 19.3, Glucose 100, Calcium 8.8, Troponin I High Sens 24 10/30/22 03:58: B-Natriuretic Peptide 331.4 H Radiology Impression Chest X-Ray 10/30/22 03:55 IMPRESSION: Bilateral airspace disease pneumonia versus pulmonary edema. Electronically Signed: Dorothy Alejandro MD at 4:45 EDT , Assessment & Plan Assessment/Plan (1) Flash pulmonary edema: (2) Heart failure with preserved ejection fraction: (3) Hypertensive emergency: PLAN: Plan Acute Exacerbation of heart failure with preserved ejection fraction/flash pulmonary edema Echocardiogram on 02/18/2022 showed ejection fraction of 55%. No hemodynamically significant valvular abnormality was noted. Place on monitored bed on PCU Weight on admission to the floor; and then daily Strict I&O's CXR independently reviewed confirms vascular congestion and I agree with radiologist interpretation. BNP is mildly elevated. Lasix 40 mg IV twice daily ordered. Potassium on presentation was 3.2. Supplemental potassium ordered. Transthoracic echocardiogram to evaluate left ventricular wall motion and systolic function. Trend blood pressure Fluid restriction of 1500 mls daily cardiac diet Hypertensive emergency Patient is not inclined on starting any new medication. Resume home antihypert ensive medication. Lasix as above. Trend blood pressures. CAD status post stent Unclear status at this time. First troponin unremarkable. Trend EKG with PVCs. Effient and statin continued. Anxiety disorder States that she is in a high stress Librium continued DVT prophylaxis: Subcutaneous Lovenox ordered. Charges/Coding Visit Charges Inpatient E&M: 06891 Init Hosp L3
[2022-10-30 06:38] LABS: Troponin-I HS 114 pg/mL (3.0-54.0)
--- NOTE | 2022-10-30 08:16 | ECHOD_ITS ---
Reason For Study: CHF Procedure This was a 2D Doppler, Color Flow transthoracic echocardiogram. The study was technically difficult. PT unable to lie in left lateral decubitus position due to left shoulder pain. Exam performed portable in patient room. Left Ventricle Normal LV size. The estimated ejection fraction is 60 %. Unable to assess diastolic dysfunction. No regional wall motion abnormalities noted. Right Ventricle Normal RV size. Normal systolic function. Atria Normal left atrium. Normal right atrium. No doppler evidence for ASD. Mitral Valve There is moderate mitral annular calcification. There is no mitral valve stenosis. Trivial mitral valve insufficiency. Tricuspid Valve There is no tricuspid stenosis. Trivial tricuspid valve insufficiency. Unable to estimate RV systolic pressure due to insufficient tricuspid regurgitant envelope. Aortic Valve Trisinus/trileaflet aortic valve. There is no aortic stenosis. No aortic valve insufficiency. Pulmonic Valve There is no pulmonic valvular stenosis. No pulmonic valve insufficiency. Great Vessels Normal aortic root. Pericardium/Pleural No pericardial effusion. MMode/2D Measurements & Calculations LVIDd: 3.8 cm IVSd: 1.00 cm Ao root diam: 3.2 cm LVIDs: 2.7 cm LVPWd: 1.2 cm RVDd: 2.6 cm FS: 29.3 % LAV(MOD-bp): 44.5 ml LVAd ap4: 26.1 cm2 SV(MOD-sp4): 50.0 ml LAV(MOD-bp) Indexed: 22.8 ml/m2 LVLd ap4: 7.2 cm LAV(MOD-sp2): 46.7 ml EDV(MOD-sp4): 78.7 ml LAV(MOD-sp4): 40.7 ml EDV(sp4-el): 80.0 ml LVAs ap4: 15.2 cm2 LVLs ap4: 6.9 cm ESV(MOD-sp4): 28.7 ml ESV(sp4-el): 28.5 ml EF(MOD-sp4): 63.5 % EF(sp4-el): 64.3 % SV(sp4-el): 51.5 ml LA A4 area: 15.9 cm2 LA dimension(2D): 3.9 cm Time Measurements MV dec time: 0.19 sec Doppler Measurements & Calculations MV E max marv: 101.4 cm/sec Lat Peak E' Marv: 6.8 cm/sec Med Peak E' Marv: 5.0 cm/sec MV A max marv: 128.7 cm/sec E/E' lat: 14.9 E/E' med: 20.4 MV E/A: 0.79 Ao V2 max: 131.5 cm/sec LV V1 max: 116.7 cm/sec PA V2 max: 117.2 cm/sec Ao max P.9 mmHg LV V1 max P.4 mmHg Ao V2 mean: 107.9 cm/sec LV V1 mean P.8 mmHg Ao mean P.9 mmHg LV V1 mean: 95.3 cm/sec Ao V2 VTI: 28.1 cm LV V1 VTI: 25.6 cm AV (velocity ratio): 0.91 TR max marv: 247.9 cm/sec TR max P.6 mmHg ECHO/Echo Complete Interpretation Summary The estimated ejection fraction is 60 %. Trivial mitral valve insufficiency. Unable to assess diastolic dysfunction. Ordering Physician: Raad Donohue Referring Physician: Jennie Turk Performed By: Fany Burroughs, RDCS, RVT
--- NOTE | 2022-10-30 08:53 | PN.HOSP_ITS ---
Reason for Visit Reason for Visit: Diagnoses Hypertensive emergency (10/30/22) Unspecified diastolic (congestive) heart failure (10/30/22) Acute pulmonary edema (10/30/22) Subjective Subjective Feels well. States that nursing put her on oxygen for unclear reason. Nursing came in, unprompted, and stated the patient requested being put on oxygen. Breathing well. Apprehensive about taking any more diuretics. Would like to use metoprolol as well as spironolactone, which she had not received yet. Objective Data Objective Data Vital Signs: Vital Signs Temp Pulse Resp BP Pulse Ox O2 Del Method O2 Flow Rate 36.3 C L 85 18 157/67 H 98 Nasal Cannula 2 10/30/22 08:17 10/30/22 08:17 10/30/22 08:17 10/30/22 08:17 10/30/22 08:17 10/30/22 08:17 10/30/22 08:17 FiO2 40 10/30/22 06:18 Oxygen Flow Rate (L/min) 2 Oxygen Delivery Method Nasal Cannula Weight: 81.363 kg Body Mass Index (BMI) 27.2 Intake & Output: Intake and Output for Last 24 Hours 10/28/22 10/29/22 10/30/22 23:59 23:59 23:59 Output Total 1100 / 1100 Balance -1100 / -1100 Lab / Micro Data Result Diagrams: 10/30/22 03:58 10/30/22 03:58 Labs: Laboratory Results - last 24 hr 10/30/22 03:58: WBC 13.5 H, RBC 4.48, Hgb 14.5, Hct 45.1, MCV 100.7 H, MCH 32.4 H, MCHC 32.2, RDW Std Deviation 49.5 H, RDW Coeff of [place] 13.2, Plt Count 278, MP V 9.8, Immature Gran % (Auto) 0.500, Neut % (Auto) 64.6, Lymph % (Auto) 28.3, [place] % (Auto) 5.4, Eos % (Auto) 0.8, Baso % (Auto) 0.4, Absolute Neuts (auto) 8.7 H, Absolute Lymphs (auto) 3.82, Nucleated RBC % 0 10/30/22 03:58: PT 12.2, INR 0.9, APTT 24.1 10/30/22 03:58: Sodium 137, Potassium 3.2 L, Chloride 100, Carbon Dioxide 27.0, Anion Gap 10, BUN 22 H, Creatinine 1.14 H, Estim Creat Clear Calc 41.69, Est GFR (MDRD) Af Amer 59 L, Est GFR (MDRD) Non-Af 49 L, BUN/Creatinine Ratio 19.3, Glucose 100, Calcium 8.8, Troponin I High Sens 24 10/30/22 03:58: B-Natriuretic Peptide 331.4 H 10/30/22 06:10: Troponin I High Sens 114 H Micro: Microbiology 10/30/22 05:58 Nasal Secretion SARS-CoV-2 Antigen (Rapid) - Final Radiography Diagnostic Testing: Radiology Impression Chest X-Ray 10/30/22 03:55 IMPRESSION: Bilateral airspace disease pneumonia versus pulmonary edema. Electronically Signed: Dorothy Alejandro MD at 4:45 EDT , Physical Exam Const alert and no apparent distress Resp normal respiratory effort, no retractions, no use of accessory muscles and clear to auscultation bilaterally Cardio regular rate, regular rhythm, S1 normal heart sound and S2 normal heart sound GI normal to inspection, nondistended, normoactive bowel sounds, soft to palpation, non-tender and non-distended Assessment & Plan Assessment/Plan (1) Heart failure with preserved ejection fraction: PLAN: Acute Exacerbation of heart failure with preserved ejection fraction/flash pulmonary edema Echocardiogram on 02/18/2022 showed ejection fraction of 55%. No hemodynamically significant valvular abnormality was noted. Place on monitored bed on PCU Weight on admission to the floor; and then daily Strict I&O's Transthoracic echocardiogram to evaluate left ventricular wall motion and systolic function. Trend blood pressure Fluid restriction of 1500 mls daily cardiac diet Patient apprehensive about using furosemide as that makes her urinate throughout the day. Would like to use spironolactone. This may have been incited by her hypertensive emergency. (2) Hypertensive emergency: PLAN: Hypertensive emergency w flash pulmonary edema Patient is not inclined on starting any new medication. Resume home antihypertensive medication. Lasix as above. Trend blood pressures. Allergy list includes: carvedilol (but currently on metoprolol), lisinopril. Also states that she has taken amlodipine in the past that caused her to feel sick. Did offer her hydralazine but she is apprehensive about starting a new medication since she has not started spironolactone yet. (3) Hypokalemia: PLAN: Replaced Monitor PLAN: Plan Chronic conditions: * CAD status post stent Unclear status at this time. First troponin unremar kable. Trend. EKG with PVCs. Effient and statin continued. * Anxiety disorder. Reviewed [facility], she receives 90 5mg of Librium on 09/20, last Rx was in May for the same. Librium continued * Numerous medication allergies: unclear if actual allergies or even adverse effects, but limits our ability to adequately treat hypertension. DVT prophylaxis: Subcutaneous Lovenox ordered. Charges/Coding Visit Charges Inpatient E&M: 19874 Subs Hosp L2
[2022-10-30 10:39] LABS: Magnesium 1.2 mg/dL (1.6-2.6); Troponin-I HS 210 pg/mL (3.0-54.0)
[2022-10-30] MEDS: Ondansetron 4 MG/2 ML Vial IV (10:39)
[2022-10-30] MEDS: predniSONE 10 MG Tablet PO (10:53)
[2022-10-30] MEDS: Metoprolol Tartrate 25 MG Tablet 12.5 MG PO (10:55)
[2022-10-30] MEDS: Estrogens,Conj. 0.625 MG Tablet PO (10:56)
--- NOTE | 2022-10-30 12:25 | CASEMGMT ---
JUANITA GOMEZ DC Planning Assessment: Face to Face with patient for initial transition planning/care coordination assessment.? JUANITA GOMEZ introduced self and role at [facility], pt voices understanding.?Pt alert and oriented x4 and agreeable to participating in assessment. Care providers, pharmacy,?and demographics verified. ? Admittin Dx: CHF/HTN emergency PCP: Marianna Specialists: Mukund (copper etcher), Jeremy (optical glass wet inspector) Preferred Pharmacy: [facility] ([facility] if color of pill is not what she needs) [facility] [place] Prescription Benefit:?yes Living Will/HPOA: yes/HPOA son Andrew #1, and friend Ayanna #2 LNOK: son Andrew Living Arrangements: Pt lives alone in a multilevel house (x5) with multiple stairs. Pt denies any difficulty navigating stairs. States she is independent with ADLs for self care. 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 Pt states she orders her groceries online and her son picks them up and brings them to her. Pt prepares her own meals. 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 States she has a prescription from her PCP to get hand controls installed on her car but has not done so at this time. DME: pulse oximeter, BP cuff, scale and medical alert. SNF/HHC: denies any previous skilled care providers, has hired home health aides s/p previous admissions to assist with additional household tasks her housekeeps was unable to assist Plan: Pt plans to return home at discharge and denies any discharge needs at this time. Will continue to monitor and assist with dc planning needs as identified. Chaz Elaine RN CM
[2022-10-30] MEDS: CROMOLYN SODIUM 20 MG/2 ML 200 MG INHALATION ×2 (13:06→17:32)
[2022-10-30] MEDS: Acetaminophen 500 MG Tablet 1000 MG PO (13:08)
[2022-10-30] MEDS: Spironolactone 25 MG Tablet PO (14:12)
--- NOTE | 2022-10-30 15:22 | DCINST_ITS ---
Discharge Instructions Diet Discharge Diet: Low fat / Low cholesterol and 2000 mg Sodium Diet Dressing / Incision Call your doctor if you observe: Shortness of breath, Swelling in the ankles and Chest pain Follow Up Care Test Results: Test results from this visit will be discussed in further detail at your follow- up appointment, if applicable. Discharge Plan Admission Admit Date/Time: 10/30/22 06:05 Primary Reason for Your Visit: CHF. hypertensive emergency Attending Provider: Flynn Luna Primary Care Provider: Jennie Turk Consulting Providers: Raad Donohue Discharge Orders/Prescriptions Prescriptions: New spironolactone 25 mg Tablet 25 mg PO DAILY Qty: 0 0RF Continued olopatadine [Pataday Once Daily Relief] 0.2 % drops 1 drp ophthalmic (eye) DAILY prednisolone acetate 0.12 % drops,suspension 1 drp ophthalmic (eye) Q OTHER DAY Rx Instructions: RT EYE ONLY [place] Gold 344-1,050-1,000 mg tablet, effervescent 1 tab PO Q4H PRN (Reason: STOMACH) budesonide 32 mcg/actuation aerosol 32 mcg intranasal ONCE PRN (Reason: ALLERGIES) prednisone 5 mg tablet 5 - 10 mg PO DAILY Rx Instructions: 5 mg maintenance dose, 10 mg if having flare up Premarin 0.625 MG tablet 0.625 mg PO DAILY Gastrocrom 200 mg PO 4X/DAY nitrofurantoin macrocrystal 50 mg capsule 50 mg PO DAILY Label Comments: Take 1 capsule by mouth once daily. May increase to 4 times daily for acute UTI for 5 days as needed then resume once daily. Rx Instructions: Take 1 capsule by mouth once daily. May increase to 4 times daily for acute UTI for 5 days as needed then resume once daily. cetirizine [Zyrtec] 10 mg Tablet 10 mg PO DAILY acetaminophen 500 mg Tablet 1,000 mg PO TID atorvastatin 20 mg tablet 20 mg PO QHS prasugrel [Effient] 10 mg tablet 10 mg PO DAILY hydrocortisone acetate 25 mg suppository 25 mg CO BID PRN (Reason: hemorrhoids) chlordiazepoxide HCl 5 mg capsule 5 mg PO .PRN PRN (Reason: agitation) Qty: 90 3RF metoprolol tartrate 25 mg tablet 12.5 mg PO BID Hold Instructions: 09/19/2022-? side effects Label Comments: 12.5mg in AM & 12.5 in PM Discontinued potassium chloride 10 mEq tablet extended release 10 meq PO BID PRN (Reason: with diazide) Qty: 180 3RF Referrals / Follow Up: Jennie Turk MD [Primary Care Provider] - Within 2 Weeks [facility] [Provider Group] - Within 1 Month Disposition Disposition (needs filled in before D/C Order can be placed): Home, Self Care
--- NOTE | 2022-10-30 15:30 | DS.PCM_ITS ---
Providers Date of Admission: 10/30/22 Primary Care Physician: Dr. Jennie Turk MD Reason For Visit: FLASH PULMONARY EDEMA Diagnosis Discharge Diagnosis (1) Heart failure with preserved ejection fraction: Status: Acute Code(s): I50.30 - Unspecified diastolic (congestive) heart failure Plan: Acute Exacerbation of heart failure with preserved ejection fraction/flash pulmonary edema Echocardiogram on 02/18/2022 showed ejection fraction of 55%. No hemodynamically significant valvular abnormality was noted. Place on monitored bed on PCU Weight on admission to the floor; and then daily Strict I&O's Transthoracic echocardiogram to evaluate left ventricular wall motion and systolic function. Trend blood pressure Fluid restriction of 1500 mls daily cardiac diet Patient apprehensive about using furosemide as that makes her urinate throughout the day. Would like to use spironolactone. This may have been incited by her hypertensive emergency. (2) Hypertensive emergency: Status: Acute Code(s): I16.1 - Hypertensive emergency Plan: Hypertensive emergency w flash pulmonary edema Patient is not inclined on starting any new medication. Resume home antihypertensive medication. Lasix as above. Trend blood pressures. Allergy list includes: carvedilol (but currently on metoprolol), lisinopril. Also states that she has taken amlodipine in the past that caused her to feel sick. Did offer her hydralazine but she is apprehensive about starting a new medication since she has not started spironolactone yet. (3) Hypokalemia: Status: Acute Code(s): E87.6 - Hypokalemia Plan: Replaced Monitor Plan Chronic conditions: * CAD status post stent Unclear status at this time. First troponin unremarkable. Trend. EKG with PVCs. Effient and statin continued. * Anxiety disorder. Reviewed [facility], she receives 90 5mg of Librium on 09/20, last Rx was in May for the same. Librium continued * Numerous medication allergies: unclear if actual allergies or even adverse effects, but limits our ability to adequately treat hypertension. DVT prophylaxis: Subcutaneous Lovenox ordered. Medications at Discharge Home Medications conjugated estrogens 0.625 mg tablet (Premarin) 0.625 mg PO DAILY hormones 02/12/14 Gastrocrom 200 mg PO 4X/DAY IBS 01/27/19 olopatadine 0.2 % eye drops (Pataday Once Daily Relief) 1 drp ophthalmic (eye) DAILY eye health 01/02/21 hydrocortisone acetate 25 mg rectal suppository 25 mg MN BID PRN hemorrhoids 08/20/21 budesonide 32 mcg/actuation nasal spray,aerosol 32 mcg intranasal ONCE PRN ALLERGIES 08/30/21 nitrofurantoin macrocrystal 50 mg capsule 50 mg PO DAILY infection 08/30/21 pot bicarb 344 mg-sod bicarb 1,050 mg-citric acid 1,000 mg efferv tab (Stephanie[place] Gold) 1 tab PO Q4H PRN STOMACH 08/30/21 prednisolone acetate 0.12 % eye drops,suspension 1 drp ophthalmic (eye) Q OTHER DAY eye health 08/30/21 acetaminophen 500 mg tablet 1,000 mg PO TID pain 10/09/21 cetirizine 10 mg tablet (Zyrtec) 10 mg PO DAILY ALLERGIES 10/09/21 chlordiazepoxide HCl 5 mg capsule 5 mg PO .PRN PRN agitation #90 caps 10/02/22 prednisone 5 mg tablet 5 - 10 mg PO DAILY FLARE 10/09/22 metoprolol tartrate 25 mg tablet 12.5 mg PO BID BP 10/24/22 atorvastatin 20 mg tablet 20 mg PO QHS Cholesterol 10/30/22 prasugrel 10 mg tablet (Effient) 10 mg PO DAILY blood thinner 10/30/22 spironolactone 25 mg tablet 25 mg PO DAILY #0 tabs 10/30/22 Hospital Course Operations None Procedures 2-D Echocardiogram Summary of Care Provided Minutes Spent on Discharge: 35 Hospital Course: 77-year-old female presents with sudden onset of shortness of breath that began roughly 50 minutes before arrival. Patient was noted to be hypoxic. Patient was noted to have profound hypertension with systolic blood pressure over the 220s. Patient also found to have pulm vascular congestion on chest x-ray. Patient did receive furosemide in the emergency room and patient was placed on a Venturi mask. Blood pressure subsequent improved as well as her oxygenation. Patient was actually not requiring oxygen and patient tells me that she was placed on oxygen by nursing staff. Though unprompted, the nursing staff stated that the patient wanted to be placed on the oxygen for comfort. I did advise further diuresis with furosemide and adjusting her blood pressure medications to get that under better control. She was apprehensive about it as she felt that the furosemide would make her urinate continuously and was apprehensive due to other medication allergies/adverse effects that she experiences could potentiate her having problems with those medications it would prefer only to start the spironolactone which she has been prescribed but yet to receive. I did advise better blood pressure control as it was currently out of control when she initially arrived but she wishes to continue with her current regimen of metoprolol as well as spironolactone. Patient may very well have allergies and adverse reactions to these medications which is quite numerous but I am truly concerned that there could be a psychosomatic component to this. Patient will certainly need reassurance if medications need to be added to her regimen and because of concerns that she has for tolerating them. BP improved and ambulated without hypoxia on room. Discharge home. Weight / BMI Weight Weight: 81.363 kg Body Mass Index (BMI) 27.2 ABG / Lab / Microbiology Data Result Diagrams: 10/30/22 03:58 10/30/22 03:58 Laboratory: Laboratory Results - last 24 hr 10/30/22 03:58: WBC 13.5 H, RBC 4.48, Hgb 14.5, Hct 45.1, MCV 100.7 H, MCH 32.4 H, MCHC 32.2, RDW Std Deviation 49.5 H, RDW Coeff of [place] 13.2, Plt Count 278, MPV 9.8, Immature Gran % (Auto) 0.500, Neut % (Auto) 64.6, Lymph % (Auto) 28.3, [place] % (Auto) 5.4, Eos % (Auto) 0.8, Baso % (Auto) 0.4, Absolute Neuts (auto) 8.7 H, Absolute Lymphs (auto) 3.82, Nucleated RBC % 0 10/30/22 03:58: PT 12.2, INR 0.9, APTT 24.1 10/30/22 03:58: Sodium 137, Potassium 3.2 L, Chloride 100, Carbon Dioxide 27.0, Anion Gap 10, BUN 22 H, Creatinine 1.14 H, Estim Creat Clear Calc 41.69, Est GFR (MDRD) Af Amer 59 L, Est GFR (MDRD) Non-Af 49 L, BUN/Creatinine Ratio 19.3, Glucose 100, Calcium 8.8, Troponin I High Sens 24 10/30/22 03:58: B-Natriuretic Peptide 331.4 H 10/30/22 06:10: Troponin I High Sens 114 H 10/30/22 10:10: Magnesium 1.2 L, Troponin I High Sens 210 H* Microbiology: Microbiology 10/30/22 05:58 Nasal Secretion SARS-CoV-2 Antigen (Rapid) - Final Radiography Diagnostic Testing: Radiology Impression Chest X-Ray 10/30/22 03:55 IMPRESSION: Bilateral airspace disease pneumonia versus pulmonary edema. Electronically Signed: Dorothy Alejandro MD at 4:45 EDT , Echocardiogram 10/30/22 08:16 Interpretation Summary The estimated ejection fraction is 60 %. Trivial mitral valve insufficiency. Unable to assess diastolic dysfunction. Ordering Physician: Raad Donohue Referring Physician: Jennie Turk Performed By: Fany Burroughs, MARYCHUY, RVT D/C Instructions Discharge Diet: Low fat / Low cholesterol and 2000 mg Sodium Diet Call your doctor if you observe: Shortness of breath, Swelling in the ankles and Chest pain Meaningful Use Info Meaningful Use Diagnoses (Choose all that apply): CHF CHF FARAZ/ARB ordered at discharge?: No Reason FARAZ/ARB not ordered?: Allergy Documented LVEF (%): 60 Discharge Plan Admission Admit Date/Time: 10/30/22 06:05 Primary Reason for Your Visit: CHF. hypertensive emergency Attending Provider: Flynn Luna Primary Care Provider: Jennie Turk Consulting Providers: Raad Donohue Discharge Orders/Prescriptions Prescriptions: New spironolactone 25 mg Tablet 25 mg PO DAILY Qty: 0 0RF Continued olopatadine [Pataday Once Daily Relief] 0.2 % drops 1 drp ophthalmic (eye) DAILY prednisolone acetate 0.12 % drops,suspension 1 drp ophthalmic (eye) Q OTHER DAY Rx Instructions: RT EYE ONLY Stephanie[place] Gold 344-1,050-1,000 mg tablet, effervescent 1 tab PO Q4H PRN (Reason: STOMACH) budesonide 32 mcg/actuation aerosol 32 mcg intranasal ONCE PRN (Reason: ALLERGIES) prednisone 5 mg tablet 5 - 10 mg PO DAILY Rx Instructions: 5 mg maintenance dose, 10 mg if having flare up Premarin 0.625 MG tablet 0.625 mg PO DAILY Gastrocrom 200 mg PO 4X/DAY nitrofurantoin macrocrystal 50 mg capsule 50 mg PO DAILY Label Comments: Take 1 capsule by mouth once daily. May increase to 4 times daily for acute UTI for 5 days as needed then resume once daily. Rx Instructions: Take 1 capsule by mouth once daily. May increase to 4 times daily for acute UTI for 5 days as needed then resume once daily. cetirizine [Zyrtec] 10 mg Tablet 10 mg PO DAILY acetaminophen 500 mg Tablet 1,000 mg PO TID atorvastatin 20 mg tablet 20 mg PO QHS prasugrel [Effient] 10 mg tablet 10 mg PO DAILY hydrocortisone acetate 25 mg suppository 25 mg MN BID PRN (Reason: hemorrhoids) chlordiazepoxide HCl 5 mg capsule 5 mg PO .PRN PRN (Reason: agitation) Qty: 90 3RF metoprolol tartrate 25 mg tablet 12.5 mg PO BID Hold Instructions: 09/19/2022-? side effects Label Comments: 12.5mg in AM & 12.5 in PM Discontinued potassium chloride 10 mEq tablet extended release 10 meq PO BID PRN (Reason: with diazide) Qty: 180 3RF Referrals / Follow Up: [facility] [Provider Group] - Within 1 Month Jennie Turk MD [Primary Care Provider] - Within 2 Weeks Disposition Disposition (needs filled in before D/C Order can be placed): Home, Self Care Charges/Coding Visit Charges Inpatient E&M: 06643 Disch Hosp >30min
--- NOTE | 2022-10-30 15:52 | CHAPLAIN ---
Type of Pastoral Visit _x__ Initial Visit ___ Follow-up Visit ___ On-call Visit ___ General Patient Visit ___ Spiritual Assessment ___ Family Conference ___ Bereavement ___ Rapid Response ___ Code Blue ___ Other (describe below) Pastoral Care Referral From _x__ Patient ___ Family ___ Nurse ___ Physician ___ Arson Investigator ___ Home Sales Service Professional ___ Other (describe below) Sacrament/Intervention _x__ Active listening ___ Anointing ___ Orthodox ___ Bereavement ___ Communion ___ Che exploration ___ _x__ Life review _x__ Prayer ___ Reconciliation ___ Sacrament of Sick _x__ Supportive presence ___ Wedding ___ Other (describe below) Pastoral Comments patient welcomes visit and the support offered; pt reviews the past 14 months of health issues with a desire to get to the bottom of this and have it controlled; pt has concerns related to needing a new doctor since hers is moving and getting into office for an appointment; pt is asked about support system and she lists many reason why she is basically alone including limited family and remaining away from social and confucianism groups; offered support while present at hospital; asked pt to think on ways she could broaden her involvement with people and find new positive ways to cope in life; pt expresses appreciation for visit and support; pt welcomes prayer and future care
--- NOTE | 2022-10-30 16:21 | CASEMGMT ---
JUANITA GOMEZ Follow-up: Face to face with pt. Pt standing in her room awaiting assistance. Offered pt home health retirement at discharge for further education and monitoring. 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 Pt declines HH care at this time. Chaz Elaine RN CM
== END 2022-10-30 18:50 | disposition home or self-care (01) | DRG 291 ==
LOC: ED 05:44 → PCU 06:57
PROVIDERS: Admitting Provider Hospitalist; Emergency Provider Emergency Medicine; PCP Internal Medicine
DX: I11.0 Hypertensive heart disease with heart failure (principal); I50.33 Acute on chronic diastolic (congestive) heart failure; I16.1 Hypertensive emergency; E87.6 Hypokalemia; R09.02 Hypoxemia; I25.10 Atherosclerotic heart disease of native coronary artery without angina pectoris; F41.9 Anxiety disorder, unspecified; I25.2 Old myocardial infarction; Z20.822 Contact with and (suspected) exposure to COVID-19; Z95.5 Presence of coronary angioplasty implant and graft; Z79.899 Other long term (current) drug therapy
CPT/HCPCS: 71045; 80048; 83735; 83880; 84484; 85025; 85610; 85730; 87811; 93005; 93306; 96374; 96375; 99221; 99285; A4216; G0378; J1940; J2405

== ENCOUNTER 2022-11-02 04:00 | Emergency (ER) | payer MEDICARE, SELFPAY ==
[2022-11-02 04:01] VITALS: BP 203/100; PULSE 93; RESP 18; TEMP 36.3; O2SAT 99; BMI 27.1
--- NOTE | 2022-11-02 04:19 | RAD_ITS ---
INDICATION: pain EXAMINATION/TECHNIQUE: X-RAY - LEFT XR Shoulder Min 2 Views 2 VIEWS COMPARISON: None. FINDINGS: No obvious anterior or posterior dislocation on the submitted views. Mild AC joint hypertrophic change. Glenohumeral joint space not well evaluated on this examination given the projections. A fracture is not obvious. No definitive hydroxyapatite deposition. There are degenerative changes of the thoracic spine. Left lung granulomas. RAD/Shoulder min 2 Views IMPRESSION: There is some mild osteoarthritic change involving the left shoulder without obvious fracture. A true AP film can be obtained for better assessment of the joint space as clinically warranted. Electronically Signed: Aaron Dumont MD at 5:18 EDT ,
--- NOTE | 2022-11-02 04:30 | EKG12_ITS ---
Test Reason : Blood Pressure : / mmHG Vent. Rate : 082 BPM Atrial Rate : 082 BPM P-R Int : 204 ms QRS Dur : 076 ms QT Int : 380 ms P-R-T Axes : 037 -26 038 degrees QTc Int : 443 ms Sinus rhythm with Premature supraventricular complexes Anteroseptal infarct , age undetermined Abnormal ECG Confirmed by JAYMIE POLANCO, BARBI ([id number]), editor map CHAD CUEVA ([id number]) on 11/03/2022 12:44:42 PM Referred By: Confirmed By:BARBI COON MD
[2022-11-02 04:51] VITALS: O2SAT 98
[2022-11-02 04:51] LABS: Absolute Lymphocyte Count 1.87 X10^3/uL (0.83-4.51); Basophil# 0.04 X10^3/uL; Basophil% 0.4 % (0-1); Eosinophil# 0.04 X10^3/uL; Eosinophils% 0.4 % (0-5); Hematocrit 40.2 % (37-47); Hemoglobin 13.1 g/dL (12.0-15.0); Lymphocyte # 1.87 X10^3/ul (0.83-4.51); Lymphocyte % 17.7 % (19-41); Mean Corp Hgb Conc 32.6 g/dL (32-36); Mean Corpuscular Hgb 32.7 pg (27.0-32.0); Mean Corpuscular Volume 100.2 fL (81-99); Mean Platelet Vol. 9.6 fl (6.2-12.0); Monocyte% 5.7 % (0-10); NRBC Flagged by Analyzer 0 % (0-5); Neutrophil # 7.95 X10^3/uL (2.7-7.7); Platelet Count 289 K/mm3 (150-450); RBC Distribution Width CV 13.2 % (11.6-14.6); RBC Distribution Width SD 48.7 fl (35.1-43.9); Red Blood Count 4.01 M/mm3 (4.2-5.4); White Blood Count 10.6 K/mm3 (4.4-11.0)
--- NOTE | 2022-11-02 05:00 | RAD_ITS ---
INDICATION: PAIN EXAMINATION/TECHNIQUE: X-RAY - XR Chest 1 View COMPARISON: October 30. FINDINGS: The cardiac silhouette and mediastinal contours are similar to the prior study. Airspace opacity described on prior radiograph has shown some improvement. No new airspace disease. No pleural effusion. Cardiac silhouette similar in size. Degenerative changes of the shoulders and spine are present. RAD/Chest 1 View (Portable) IMPRESSION: Slight improvement in bilateral airspace opacities. Electronically Signed: Aaron Dumont MD at 5:15 EDT ,
[2022-11-02 05:11] LABS: BNP,B-Type NATRIURETIC PEPTIDE 324.7 pg/mL (0-100)
--- NOTE | 2022-11-02 05:47 | EX.ED.UPPERE ---
HPI History of Present Illness Chief Complaint: Upper Extremity Injury Detail of Chief Complaint: Left shoulder pain, palpitations Informant: patient Narrative Narrative: Patient states that she awoke with sharp left shoulder pain. She has had history of the same and her primary care physician feels that she has an impingement. She is awaiting left shoulder x-rays so this can be further diagnosed. Patient states that when she woke up with severe pain this caused her to become very anxious and she believes that she went into A-fib. She states usually she will apply ice packs to her left shoulder and in approximately 10 minutes the pain will subside, however tonight it persisted longer. Given the longer duration of pain and concern for atrial fibrillation she called 911. She states that by the time EMS arrived the pain had significantly improved. She no longer felt as if she was in A-fib, but still was noting some premature beats. [facility] Medical History Atherosclerotic heart disease of [place] coronary artery without angina pectoris Cellulitis Essential hypertension Fracture of metatarsal of left foot, closed History of carpal tunnel syndrome History of chronic back pain Myocardial infarct Non-STEMI (non-ST elevated myocardial infarction) Presence of stent in coronary artery (~08/08/21) Pulmonary edema Vocal cord granuloma Home Medications conjugated estrogens 0.625 mg tablet (Premarin) 0.625 mg PO DAILY hormones 02/12/14 [History Last Taken 10/09/21] Gastrocrom 200 mg PO 4X/DAY IBS 01/27/19 [History Last Taken 10/09/21] olopatadine 0.2 % eye drops (Pataday Once Daily Relief) 1 drp ophthalmic (eye) DAILY eye health 01/02/21 [History Last Taken Unknown] hydrocortisone acetate 25 mg rectal suppository 25 mg LA BID PRN hemorrhoids 08/20/21 [History Last Taken 10/09/21] budesonide 32 mcg/actuation nasal spray,aerosol 32 mcg intranasal ONCE PRN ALLERGIES 08/30/21 [History Last Taken Unknown] nitrofurantoin macrocrystal 50 mg capsule 50 mg PO DAILY infection 08/30/21 [History Last Taken 10/09/21] pot bicarb 344 mg-sod bicarb 1,050 mg-citric acid 1,000 mg efferv tab (Stephanie-[place] Gold) 1 tab PO Q4H PRN STOMACH 08/30/21 [History Last Taken Unknown] prednisolone acetate 0.12 % eye drops,suspension 1 drp ophthalmic (eye) Q OTHER DAY eye health 08/30/21 [History Last Taken 10/08/21] acetaminophen 500 mg tablet 1,000 mg PO TID pain 10/09/21 [History Last Taken 10/08/21] cetirizine 10 mg tablet (Zyrtec) 10 mg PO DAILY ALLERGIES 10/09/21 [History Last Taken 10/09/21] chlordiazepoxide HCl 5 mg capsule 5 mg PO .PRN PRN agitation #90 caps 10/02/22 [Rx Last Taken Unknown] prednisone 5 mg tablet 5 - 10 mg PO DAILY FLARE 10/09/22 [History Last Taken Unknown] metoprolol tartrate 25 mg tablet 12.5 mg PO BID BP 10/24/22 [History Last Taken Unknown] atorvastatin 20 mg tablet 20 mg PO QHS Cholesterol 10/30/22 [History Last Taken 10/29/22] prasugrel 10 mg tablet (Effient) 10 mg PO DAILY blood thinner 10/30/22 [History Last Taken Unknown] spironolactone 25 mg tablet 25 mg PO DAILY #0 tabs 10/30/22 [Rx Last Taken Unknown] Allergy/AdvReac Type Severity Reaction Status Date / Time aspirin Allergy Severe Tight in Verified 10/30/22 03:46 throat, Severe tinnitus, nosebleeds, dizzy. clopidogrel Allergy Intermediate Hives Verified 10/30/22 03:46 alprazolam [From Xanax] Allergy Unknown Unknown Verified 10/30/22 03:46 Lad[place] And Derivatives Allergy Unknown Unknown Verified 10/30/22 03:46 mushroom Allergy Unknown Unknown Verified 10/30/22 03:46 paroxetine [From Paxil] Allergy Unknown Unknown Verified 10/30/22 03:46 peanut Allergy Unknown Unknown Verified 10/30/22 03:46 ticagrelor [From Brilinta] Allergy Unknown unknown Verified 10/30/22 03:46 tolmetin [From Tolectin] Allergy Unknown Unknown Verified 10/30/22 03:46 Yeast Allergy Unknown Unknown Verified 10/30/22 03:46 acetaminophen Allergy Other Verified 10/30/22 03:46 [From Darvocet-N] codeine Allergy Other Verified 10/30/22 03:46 fluconazole [From Diflucan] Allergy Rash Verified 10/30/22 03:46 lidocaine Allergy Other Verified 10/30/22 03:46 meperidine HCl [From Demerol] Allergy Other Verified 10/30/22 03:46 metronidazole [From Metrogel] Allergy Rash Verified 10/30/22 03:46 Opioids - Morphine Analogues Allergy Other Verified 10/30/22 03:46 oxycodone HCl [From Percodan] Allergy Other Verified 10/30/22 03:46 oxycodone terephthalate Allergy Other Verified 10/30/22 03:46 [From Percodan] Penicillins Allergy Rash Verified 10/30/22 03:46 propoxyphene napsylate Allergy Other Verified 10/30/22 03:46 [From Darvocet-N] Sulfa (Sulfonamide Allergy Rash Verified 10/30/22 03:46 Antibiotics) amiodarone AdvReac Severe Severe Verified 10/30/22 03:46 urinary retention Beef Containing Products AdvReac Severe Unknown Verified 10/30/22 03:46 carvedilol AdvReac Severe Very Verified 10/30/22 03:46 lightheaded, Dizziness, floating on ceiling feeling. cheese AdvReac Mild Unknown Verified 10/30/22 03:46 egg AdvReac Unknown Unknown Verified 10/30/22 03:46 maltose AdvReac Unknown Unknown Verified 10/30/22 03:46 adhesive tape AdvReac Rash Verified 10/30/22 03:46 Cephalosporins AdvReac Shortness Verified 10/30/22 03:46 of breath cyclobenzaprine AdvReac NEEDS Verified 10/30/22 03:46 [From Flexeril] FOLLOW-UP epinephrine AdvReac NEEDS Verified 10/30/22 03:46 FOLLOW-UP estrogens, conjugated AdvReac NEEDS Verified 10/30/22 03:46 [From Premarin] FOLLOW-UP glycerin AdvReac Itching Verified 10/30/22 03:46 lisinopril AdvReac Shortness Verified 10/30/22 03:46 of breath midazolam [From Versed] AdvReac NEEDS Verified 10/30/22 03:46 FOLLOW-UP ofloxacin [From Floxin] AdvReac NEEDS Verified 10/30/22 03:46 FOLLOW-UP phenol AdvReac Shortness Verified 10/30/22 03:46 of breath salicylates AdvReac Shortness Verified 10/30/22 03:46 of breath spider venom AdvReac Nausea Verified 10/30/22 03:46 Dyes AdvReac Hallucinati Uncoded 10/30/22 03:46 on Family History Father Rheumatic heart disease Mother Cancer Other Allergies Asthma Surgical History H/O: hysterectomy History of D&C History of tonsillectomy History of tubal ligation Presence of coronary angioplasty implant and graft (~08/08/21) Social History household members: none Smoking Status: Never smoker alcohol intake: never substance use type: does not use diet: low salt and other what type of physical activity do you participate in: none seatbelt use: always do you feel safe at home: Yes additional social history: ROS ROS ED Constitutional Constitutional ED: Denies chills or fever(s) Eyes Eyes: Denies change in vision or discharge from eye(s) ENT ENT ED: Denies discharge from eye(s), rhinorrhea or sore throat Cardiovascular Cardiovascular: Reports palpitations; Denies chest pain Respiratory/Chest Respiratory/Chest: Reports dyspnea; Denies cough Gastrointestinal Gastrointestinal: Denies abdominal pain, diarrhea, nausea or vomiting Genitourinary Genitourinary ED: Denies dysuria Musculoskeletal Musculoskeletal: Reports extremity pain; Denies back pain Integumentary Denies Abrasions or rash Neurologic Neurologic: Denies headache(s) or weakness Psychiatric Psychiatric: Reports anxiety; Denies depression Endocrine Endocrinology: Denies polydipsia or polyuria Allergic/Immunologic Allergic/Immunologic ED: Denies lip swelling or urticaria EXAM Physical Exam Const Vital Signs: 11/02/22 04:01 11/02/22 04:51 Temperature 97.4 F L Temperature Source Temporal Pulse Rate 93 Respiratory Rate 18 Blood Pressure 203/100 H Blood Pressure Mean 134 Pulse Ox 99 98 Oxygen Delivery Method Nasal Cannula Nasal Cannula Oxygen Flow Rate (L/min) 4 3 Positive well nourished and well developed General Appearance ED: well developed HEENT Reports normocephalic and head/scalp atraumatic Eyes PERRL and EOMs intact bilaterally Neck supple Chest Wall inspection of chest normal and palpation of chest normal Resp normal respiratory effort and clear to auscultation bilaterally Cardio regular rate and regular rhythm GI normal to inspection, nondistended, normoactive bowel sounds Palpation: soft Extremity normal to inspection Neuro oriented x3 and no sensory deficits noted Sensorium / Orientation: alert Motor Exam: strength 5/5 throughout Psych mental status grossly normal Skin no rashes or lesions noted MDM MDM MDM Narrative Medical decision making narrative: 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 EKG obtained to evaluate for cardiac arrhythmia/ischemia. Chest x-ray obtained to evaluate for acute lung pathology, cardiac size, or mediastinal abnormality. Labwork obtained to evaluate for leukocytosis, anemia, and electrolyte derangement. Lab Data Attestation: I reviewed the patient's lab results. Labs: Laboratory Results 11/02/22 11/02/22 11/02/22 06:40 04:42 04:42 WBC RBC Hgb Hct MCV MCH MCHC RDW Std Deviation RDW Coeff of Eboni Plt Count MPV Immature Gran % (Auto) Neut % (Auto) Lymph % (Auto) [place] % (Auto) Eos % (Auto) Baso % (Auto) Absolute Neuts (auto) Absolute Lymphs (auto) Nucleated RBC % Sodium 136 Potassium 3.5 Chloride 100 Carbon Dioxide 26.0 Anion Gap 10 BUN 19 H Creatinine 1.05 H Estim Creat Clear Calc 45.26 Est GFR (MDRD) Af Amer 65 Est GFR (MDRD) Non-Af 54 L BUN/Creatinine Ratio 18.1 Glucose 100 Calcium 8.4 L Troponin I High Sens 536 H* 143 H* B-Natriuretic Peptide 324.7 H 11/02/22 04:42 WBC 10.6 RBC 4.01 L Hgb 13.1 Hct 40.2 MCV 100.2 H MCH 32.7 H MCHC 32.6 RDW Std Deviation 48.7 H RDW Coeff of Eboni 13.2 Plt Count 289 MPV 9.6 Immature Gran % (Auto) 0.800 Neut % (Auto) 75.0 H Lymph % (Auto) 17.7 L [place] % (Auto) 5.7 Eos % (Auto) 0.4 Baso % (Auto) 0.4 Absolute Neuts (auto) 8.0 H Absolute Lymphs (auto) 1.87 Nucleated RBC % 0 Sodium Potassium Chloride Carbon Dioxide Anion Gap BUN Creatinine Estim Creat Clear Calc Est GFR (MDRD) Af Amer Est GFR (MDRD) Non-Af BUN/Creatinine Ratio Glucose Calcium Troponin I High Sens B-Natriuretic Peptide Laboratory Results - last 24 hr 11/02/22 11/02/22 04:42 04:42 WBC 10.6 RBC 4.01 L Hgb 13.1 Hct 40.2 MCV 100.2 H MCH 32.7 H MCHC 32.6 RDW Std Deviation 48.7 H RDW Coeff of Eboni 13.2 Plt Count 289 MPV 9.6 Immature Gran % (Auto) 0.800 Neut % (Auto) 75.0 H Lymph % (Auto) 17.7 L [place] % (Auto) 5.7 Eos % (Auto) 0.4 Baso % (Auto) 0.4 Absolute Neuts (auto) 8.0 H Absolute Lymphs (auto) 1.87 Nucleated RBC % 0 B-Natriuretic Peptide 324.7 H Radiography Chest X-Ray - ED: 1 View, Read by ED Physician and Chronic Changes Diagnostic Testing: Clinical Impression(s) from Imaging Studies Shoulder X-Ray 11/02/22 04:19 IMPRESSION: There is some mild osteoarthritic change involving the left shoulder without obvious fracture. A true AP film can be obtained for better assessment of the joint space as clinically warranted. Electronically Signed: Aaron Dumont MD at 5:18 EDT , Chest X-Ray 11/02/22 05:00 IMPRESSION: Slight improvement in bilateral airspace opacities. Electronically Signed: Aaron Dumont MD at 5:15 EDT , EKG Initial EKG: Attestation: I personally reviewed and interpreted this EKG as follows: Interpretation: Sinus Rhythm (Sinus 82 with no acute ischemia. PACs noted.) Treatment and Re-Evaluation Narrative: I was able to review patient's recent admission from October 30. She was admitted with similar presentation of shoulder pain leading to what she believes to be A-fib and pulmonary edema. She was admitted secondary to her hypertension. Patient had troponins at that time that trended up to 200. She states that at the time of discharge her systolic blood pressure was in the 120s. She has started the spironolactone this week. She states when she checks her blood pressures at home they are in the high 120s to low 130s systolic. CBC tonight is unremarkable. Chemistry studies are unremarkable with normal renal function. Initial troponin is 143 and 2-hour repeat is 536. Her BNP is 324. Chest x-ray per my interpretation reveals chronic changes. Radiology interpretation is reviewed. They feel the bilateral opacities are improved when compared to prior study. Patient's systolic blood pressure remained elevated in the 180s and 190s. In light of this she was given a dose of IV metoprolol as she takes p.o. metoprolol at home. She does have a significant number of drug allergies and is reluctant to try any new medication. Blood pressures have improved into the 150s. It appears patient's last heart cath was from September 2021. At that time she had patent stents. I spoke with Dr. Jean-Baptiste, on-call for cardiology. He feels that the patient's troponin leak is likely secondary to small vessel disease and her significantly elevated blood pressure. His preference would be to admit her to the hospital for cycling of enzymes and aggressive blood pressure control. I discussed this with the patient. She would prefer to try to go home if at all possible. She strongly feels that all of this is initiated by the severe pain in her left shoulder. She feels that if the pain in her left shoulder can be controlled she will not have these anxious episodes where her blood pressure gets out of control causing the pulmonary edema and abnormal troponin values. She states that she currently has Librium as needed to help control her pain and stress, however when she takes the Librium she has increased problems with bladder control. She states that at her last visit Dr. Turk mentioned there was another medication they could try, however patient would need to take it every day. She intends to speak with Dr. Turk this week about it at her appointment. We made several attempts to contact Dr. Turk as she is center lead consultant today. After an hour and 15 minutes we still not heard back from her. This was discussed with the patient. She would prefer to be discharged home and will call Dr. Turk's office in the morning. Patient was reassured that she is welcome to come back to the ER at any time. Discharge Plan Triage Chief Complaint: Upper Extremity Injury ED Provider: Nataly Crowell Dx/Rx/DC Orders Clinical Impression: Left shoulder pain, Pulmonary edema, Hypertension Instructions: ED Hypertension, Established, ED Shoulder Impingement Syndrome Prescriptions: No Action olopatadine [Pataday Once Daily Relief] 0.2 % drops 1 drp ophthalmic (eye) DAILY prednisolone acetate 0.12 % drops,suspension 1 drp ophthalmic (eye) Q OTHER DAY Rx Instructions: RT EYE ONLY Stephanie-[place]thur Gold 344-1,050-1,000 mg tablet, effervescent 1 tab PO Q4H PRN (Reason: STOMACH) budesonide 32 mcg/actuation aerosol 32 mcg intranasal ONCE PRN (Reason: ALLERGIES) prednisone 5 mg tablet 5 - 10 mg PO DAILY Rx Instructions: 5 mg maintenance dose, 10 mg if having flare up Premarin 0.625 MG tablet 0.625 mg PO DAILY Gastrocrom 200 mg PO 4X/DAY nitrofurantoin macrocrystal 50 mg capsule 50 mg PO DAILY Label Comments: Take 1 capsule by mouth once daily. May increase to 4 times daily for acute UTI for 5 days as needed then resume once daily. Rx Instructions: Take 1 capsule by mouth once daily. May increase to 4 times daily for acute UTI for 5 days as needed then resume once daily. cetirizine [Zyrtec] 10 mg Tablet 10 mg PO DAILY acetaminophen 500 mg Tablet 1,000 mg PO TID atorvastatin 20 mg tablet 20 mg PO QHS prasugrel [Effient] 10 mg tablet 10 mg PO DAILY spironolactone 25 mg Tablet 25 mg PO DAILY Qty: 0 0RF hydrocortisone acetate 25 mg suppository 25 mg LA BID PRN (Reason: hemorrhoids) chlordiazepoxide HCl 5 mg capsule 5 mg PO .PRN PRN (Reason: agitation) Qty: 90 3RF metoprolol tartrate 25 mg tablet 12.5 mg PO BID Hold Instructions: 09/19/2022-? side effects Label Comments: 12.5mg in AM & 12.5 in PM Primary Care Provider: Jennie Turk Referrals: Jennie Turk MD [Primary Care Provider] - As soon as possible Disposition Disposition: Home, Self Care
[2022-11-02 05:51] LABS: Anion Gap 10 (5-15); BUN 19 mg/dL (7-18); BUN/Creat Ratio 18.1 RATIO (10-20); Calcium,Total 8.4 mg/dL (8.5-10.1); Chloride 100 mmol/L (98-107); Creatinine, Serum 1.05 mg/dL (0.55-1.02); EST Glomerular Filtration Rate 54 mL/min (>60); Est Glom Filt Rate - Afr Amer 65 mL/min (>60); Estimated Creatinine Clearance 45.26 ml/min; Glucose 100 mg/dL (74-106); Potassium 3.5 mmol/L (3.5-5.1); Sodium Level 136 mmol/L (136-145); Troponin-I HS (w/2H Reflex) 143 pg/mL (3.0-54.0)
[2022-11-02 05:58] VITALS: BP 191/93; PULSE 81; RESP 20; O2SAT 100
[2022-11-02] MEDS: Metoprolol Tartrate 5 MG/5 ML Vial IV (05:59)
[2022-11-02 06:48] LABS: Reflex Troponin-HS? (from REC) Y
--- NOTE | 2022-11-02 07:18 | NURSING ---
Dr. Crowell made aware critical 2nd troponin level.
[2022-11-02 07:20] LABS: Troponin-I HS 536 pg/mL (3.0-54.0)
[2022-11-02 08:00] VITALS: BP 176/82; PULSE 77; RESP 15; O2SAT 100
--- NOTE | 2022-11-02 08:51 | NURSING ---
[id number] MORGAN [phone] MORGAN' PHONE [phone] MORGAN
--- NOTE | 2022-11-02 09:27 | NURSING ---
0900 called urgent care for assistance. no different way to reach
--- NOTE | 2022-11-02 09:28 | NURSING ---
[id number] MORGAN
--- NOTE | 2022-11-02 09:28 | NURSING ---
[id number] MORGAN PHONE
== END 2022-11-02 09:59 | disposition home or self-care (01) ==
PROVIDERS: Emergency Provider Emergency Medicine; PCP Internal Medicine; Visit Provider Emergency Medicine
DX: J81.1 Chronic pulmonary edema (principal); I48.91 Unspecified atrial fibrillation; M25.512 Pain in left shoulder; I10 Essential (primary) hypertension; R00.2 Palpitations; I25.10 Atherosclerotic heart disease of native coronary artery without angina pectoris; R06.00 Dyspnea, unspecified; F41.9 Anxiety disorder, unspecified
CPT/HCPCS: 71045; 73030; 80048; 83880; 84484; 85025; 93005; 96374; 99285; A4216

== ENCOUNTER 2022-12-08 02:52 | Observation (INO) | payer MEDICARE, SELFPAY ==
[2022-12-08] VITALS (14 sets, daily range): BP systolic 117–192; BP diastolic 54–91; PULSE 73–95; RESP 18–19; TEMP 36.4–36.9; O2SAT 88–99; BMI 33.2; BMI 32.2; BMI 27.5
--- NOTE | 2022-12-08 03:02 | EKG12_ITS ---
Test Reason : DYSRHYTHMIA Blood Pressure : / mmHG Vent. Rate : 083 BPM Atrial Rate : 083 BPM P-R Int : 174 ms QRS Dur : 084 ms QT Int : 400 ms P-R-T Axes : 036 -19 040 degrees QTc Int : 470 ms Sinus rhythm with Premature supraventricular complexes Low voltage QRS Inferior infarct , age undetermined Anterolateral infarct , age undetermined Abnormal ECG Confirmed by JAYMIE POLANCO, BARBI ([id number]), videotape editor CHAD CUEVA ([id number]) on 12/08/2022 11:42:03 AM Referred By: ASHLEY Confirmed By:BARBI COON MD
--- NOTE | 2022-12-08 03:12 | EDS_ITS ---
HPI History of Present Illness Chief Complaint: Palpitations Informant: patient and EMS Narrative Narrative: Presents to ED by EMS from home reported increasing irregular heart beat awakening at 2 AM. States she had increasing dyspnea. No lightheaded symptoms. Reports history of atrial fibrillation and IN with 2 stents. She is currently on Effient, denies any other anticoagulants. She has an allergy to aspirin. Recent cough that is improved. No history of PE or DVT. History of ischemic cardiomyopathy, however reports her last EF is 60%. She states she has been having increasing leg swelling. Denies fevers. She wears Shaq wrap to her left foot stating from a previous fracture for stability not for the swelling. Denies tobacco history. I denies any COPD or asthma. She initially reported her A-fib was from her IN and she was not started on any strong blood thinners. She is just on Effient. Further discussion with the patient she has been having leg swelling over the last couple weeks she was started on Lasix. Review of cardiology office note from 19 days ago 3-day course was initiated for swelling. Apparently this has been continued by her PCP with increasing dosing. Last seen PCP this past Thursday 2 days ago had Lasix up to 40 in the mornings and 20 at night. She was also started on clindamycin for concerns of right leg and foot cellulitis. After evaluation the patient, test results initially, evaluate records. She had a STEMI back in July 2021, heart cath with 2 stents. One in the mid LAD the other in the mid RCA. Patient had ischemic cardiomyopathy EF 45% then. In September 2021, came in for chest pains found to have A-fib with RVR. She was admitted for type II NSTEMI with a new onset A-fib. She from discharge summary declined anticoagulants for her A-fib due to history of hemorrhoids and bleeding from this. She is on amiodarone and metoprolol at that time. Patient last echo October of this year EF of 60%. EMS EKG reviewed x2, initial 1 sent over had reported electronically A-fib, however artifacts and looking closely she had sinus with PVCs and PAC. A second EKG sent was sinus rhythm. Prior similar symptoms: Yes PFSH PFS Medical History Arthritis Atherosclerotic heart disease of [place] coronary artery without angina pectoris Cellulitis Essential hypertension Fracture of metatarsal of left foot, closed History of carpal tunnel syndrome History of chronic back pain HLD (hyperlipidemia) Ischemic cardiomyopathy Myocardial infarct Non-STEMI (non-ST elevated myocardial infarction) Presence of stent in coronary artery (~08/08/21) Pulmonary edema Vocal cord granuloma Home Medications conjugated estrogens 0.625 mg tablet (Premarin) 0.625 mg PO DAILY hormones 02/12/14 [History Last Taken 10/09/21] Gastrocrom 200 mg PO 4X/DAY IBS 01/27/19 [History Last Taken 10/09/21] olopatadine 0.2 % eye drops (Pataday Once Daily Relief) 1 drp ophthalmic (eye) DAILY eye health 01/02/21 [History Last Taken Unknown] hydrocortisone acetate 25 mg rectal suppository 25 mg TN BID PRN hemorrhoids 08/20/21 [History Last Taken 10/09/21] budesonide 32 mcg/actuation nasal spray,aerosol 32 mcg intranasal ONCE PRN ALLERGIES 08/30/21 [History Last Taken Unknown] nitrofurantoin macrocrystal 50 mg capsule 50 mg PO DAILY infection 08/30/21 [History Last Taken 10/09/21] pot bicarb 344 mg-sod bicarb 1,050 mg-citric acid 1,000 mg efferv tab (Stephanie- Hart Gold) 1 tab PO Q4H PRN STOMACH 08/30/21 [History Last Taken Unknown] prednisolone acetate 0.12 % eye drops,suspension 1 drp ophthalmic (eye) Q OTHER DAY eye health 08/30/21 [History Last Taken 10/08/21] acetaminophen 500 mg tablet 1,000 mg PO TID pain 10/09/21 [History Last Taken 10/08/21] cetirizine 10 mg tablet (Zyrtec) 10 mg PO DAILY ALLERGIES 10/09/21 [History Last Taken 10/09/21] chlordiazepoxide HCl 5 mg capsule 5 mg PO .PRN PRN agitation #90 caps 10/02/22 [Rx Last Taken Unknown] prednisone 5 mg tablet 5 - 10 mg PO DAILY FLARE 10/09/22 [History Last Taken Unknown] atorvastatin 20 mg tablet 20 mg PO QHS Cholesterol 10/30/22 [History Last Taken 10/29/22] metoprolol tartrate 25 mg tablet 12.5 mg PO .COMPLEX BP 11/12/22 [History Last Taken Unknown] prasugrel 5 mg tablet (Effient) 5 mg PO DAILY #90 tabs 11/19/22 [Rx Last Taken Unknown] triamterene 37.5 mg-hydrochlorothiazide 25 mg capsule 1 cap PO DAILY MGSAN brand please #90 caps 12/04/22 [Rx Last Taken Unknown] clindamycin HCl 300 mg capsule 300 mg PO 4X/DAY 12/08/22 [History Last Taken Unknown] furosemide 20 mg tablet 20 mg PO QHS 12/08/22 [History Last Taken Unknown] furosemide 20 mg tablet 40 mg PO DAILY 12/08/22 [History Last Taken Unknown] Allergy/AdvReac Type Severity Reaction Status Date / Time aspirin Allergy Severe Tight in Verified 12/08/22 02:57 throat, Severe tinnitus, nosebleeds, dizzy. clopidogrel Allergy Intermediate Hives Verified 12/08/22 02:57 alprazolam [From Xanax] Allergy Unknown Unknown Verified 12/08/22 02:57 [place] And Derivatives Allergy Unknown Unknown Verified 12/08/22 02:57 mushroom Allergy Unknown Unknown Verified 12/08/22 02:57 paroxetine [From Paxil] Allergy Unknown Unknown Verified 12/08/22 02:57 peanut Allergy Unknown Unknown Verified 12/08/22 02:57 ticagrelor [From Brilinta] Allergy Unknown unknown Verified 12/08/22 02:57 tolmetin [From Tolectin] Allergy Unknown Unknown Verified 12/08/22 02:57 Yeast Allergy Unknown Unknown Verified 12/08/22 02:57 acetaminophen Allergy Other Verified 12/08/22 02:57 [From Darvocet-N] codeine Allergy Other Verified 12/08/22 02:57 fluconazole [From Diflucan] Allergy Rash Verified 12/08/22 02:57 lidocaine Allergy Other Verified 12/08/22 02:57 meperidine HCl [From Demerol] Allergy Other Verified 12/08/22 02:57 metronidazole [From Metrogel] Allergy Rash Verified 12/08/22 02:57 Opioids - Morphine Analogues Allergy Other Verified 12/08/22 02:57 oxycodone HCl [From Percodan] Allergy Other Verified 12/08/22 02:57 oxycodone terephthalate Allergy Other Verified 12/08/22 02:57 [From Percodan] Penicillins Allergy Rash Verified 12/08/22 02:57 propoxyphene napsylate Allergy Other Verified 12/08/22 02:57 [From Darvocet-N] Sulfa (Sulfonamide Allergy Rash Verified 12/08/22 02:57 Antibiotics) amiodarone AdvReac Severe Severe Verified 12/08/22 02:57 urinary retention Beef Containing Products AdvReac Severe Unknown Verified 12/08/22 02:57 carvedilol AdvReac Severe Very Verified 12/08/22 02:57 lightheaded, Dizziness, floating on ceiling feeling. cheese AdvReac Mild Unknown Verified 12/08/22 02:57 egg AdvReac Unknown Unknown Verified 12/08/22 02:57 maltose AdvReac Unknown Unknown Verified 12/08/22 02:57 adhesive tape AdvReac Rash Verified 12/08/22 02:57 Cephalosporins AdvReac Shortness Verified 12/08/22 02:57 of breath cyclobenzaprine AdvReac NEEDS Verified 12/08/22 02:57 [From Flexeril] FOLLOW-UP epinephrine AdvReac NEEDS Verified 12/08/22 02:57 FOLLOW-UP estrogens, conjugated AdvReac NEEDS Verified 12/08/22 02:57 [From Premarin] FOLLOW-UP glycerin AdvReac Itching Verified 12/08/22 02:57 Iodinated Contrast Media AdvReac HALLUCINATI Verified 12/08/22 02:57 [iodine contrast] ONS lisinopril AdvReac Shortness Verified 12/08/22 02:57 of breath midazolam [From Versed] AdvReac NEEDS Verified 12/08/22 02:57 FOLLOW-UP ofloxacin [From Floxin] AdvReac NEEDS Verified 12/08/22 02:57 FOLLOW-UP phenol AdvReac Shortness Verified 12/08/22 02:57 of breath salicylates AdvReac Shortness Verified 12/08/22 02:57 of breath spider venom AdvReac Nausea Verified 12/08/22 02:57 spironolactone AdvReac GI upset Verified 12/08/22 02:57 and burning urination Family History Father Rheumatic heart disease Mother Cancer Other Allergies Asthma Surgical History H/O: hysterectomy History of D&C History of tonsillectomy History of tubal ligation Presence of coronary angioplasty implant and graft (~08/08/21) Social History household members: none Smoking Status: Never smoker alcohol intake: never substance use type: does not use diet: low salt and other what type of physical activity do you participate in: none seatbelt use: always do you feel safe at home: Yes additional social history: ROS ROS ED Constitutional Constitutional ED: Denies chills, fever(s) or sweats Eyes Eyes: Denies change in vision ENT ENT ED: Denies dysphagia or sore throat Cardiovascular Cardiovascular: Reports palpitations; Denies chest pain, leg edema or racing heartbeat Respiratory/Chest Respiratory/Chest: Reports dyspnea; Denies cough or dyspnea on exertion Gastrointestinal Gastrointestinal: Denies abdominal pain, diarrhea, nausea or vomiting Genitourinary Genitourinary ED: Denies dysuria, hematuria or urinary frequency Musculoskeletal Musculoskeletal: Denies back pain, extremity pain or neck pain Integumentary Denies rash or wounds Neurologic Neurologic: Denies headache(s), paresthesias or weakness EXAM Physical Exam Const Vital Signs: 12/08/22 02:53 12/08/22 02:57 12/08/22 02:57 Temperature 97.6 F L Temperature Source Oral Pulse Rate 95 Respiratory Rate 19 H Respiratory Effort Normal Non-Labored Short of Breath Respiratory Pattern Normal Blood Pressure Blood Pressure Mean Pulse Ox 88 Oxygen Delivery Method Room Air Oxygen Flow Rate (L/min) 12/08/22 03:04 12/08/22 03:53 12/08/22 04:14 Temperature 98.4 F Temperature Source Oral Pulse Rate 85 85 Respiratory Rate 18 19 H Respiratory Effort Respiratory Pattern Blood Pressure 182/78 H 192/83 H Blood Pressure Mean 112 119 Pulse Ox 92 95 97 Oxygen Delivery Method Nasal Cannula Nasal Cannula Nasal Cannula Oxygen Flow Rate (L/min) 2 4 4 Positive well nourished and well developed Constitutional Narrative: Speaking in full sentence, however pulse oximetry fluctuating from 88 to 92%. General Appearance ED: well developed and NAD HEENT Reports moist mucous membranes normocephalic and atraumatic Eyes PERRL, EOMs intact bilaterally and conjunctivae normal General Eye ED: Yes normal appearance of both eyes Neck no lymphadenopathy and supple General: Negative for tenderness Chest Wall Chest: Negative for tenderness Resp normal respiratory effort and normal air movement Effort and Inspection: symmetric chest movement; Negative for respiratory distress Cardio regular rate, regular rhythm and no murmurs Peripheral Pulses: pulses 2+ throughout GI normal to inspection, nondistended, normoactive bowel sounds and non-tender Palpation: Negative for guarding or rebound tenderness present Back/Spine no CVA tenderness and no thoracic nor lumbar tenderness Extremity normal to inspection Extremity Narrative: Lower extremity edema, right leg had erythema distal leg to the dorsal foot. Nontender. No crepitus. With elevation of the leg, no erythema to start to improve, skin does ekaterina, is not warm. General Extremety ED: Yes edema; Negative for tenderness General Extremity: edema Neuro oriented x3 and no sensory deficits noted Sensorium / Orientation: awake and alert Skin no rashes or lesions noted and no wounds MDM MDM MDM Narrative Medical decision making narrative: Interventions / MDM: Differential diagnosis: CHF, hypoxia, bronchitis, pneumonia, viral syndrome, ca rdiac dysrhythmia, vascular insufficiency Diagnosis considered but do not suspect: Cellulitis of the right leg however improving with gravity and blanches without warmth. Pulmonary embolism, however vascular congestion elevated BNP on work-up consistent with fluid overload. My EKG interpretation: Sinus rate of 83, multifocal PACs noted. No ST or T wave changes. Imaging independently reviewed and interpreted by myself: 2 view chest x-ray: Vascular congestion bilaterally External documents reviewed:She had a STEMI back in July 2021, heart cath with 2 stents. One in the mid LAD the other in the mid RCA. Patient had ischemic cardiomyopathy EF 45% then. In September 2021, came in for chest pains found to have A-fib with RVR. She was admitted for type II NSTEMI with a new onset A-fib. She from discharge summary declined anticoagulants for her A-fib due to history of hemorrhoids and bleeding from this. She is on amiodarone and metoprolol at that time. Patient last echo October of this year EF of 60%. Test considered but not ordered:N/A ED course: Patient presenting dyspnea was hypoxic on arrival 88% placed on 2 L oxygen. There is no respiratory distress. She will leg swelling, work-up initiated. Being n.p.o. elevated 391 chest x-ray vascular congestion. Creatinine 1.18 potassium 2.7. From her history increasing diuretics this is clearly results. Magnesium added oral potassium. She is given 40 mg IV Lasix. She is failing outpatient therapy. EKG was sinus rhythm with multifocal PACs, she has history of atrial fibrillation, discussed extensively with the patient after reviewing records as noted she has been declining it as noted on the most recent cardiology note on the . Discussing with the patient she stating she did not decline she just wants more information of side effects as she is sensitive to medications and has an aspirin allergy. She states she would like to talk to the pharmacist about the medications as her late was a pharma cist before making informed decision. Due to her hypoxia failing outpatient therapy, I will speak with hospitalist service for admission. As to her reported cellulitis being treated on her right leg, appears more vascular insufficiency on exam. Her white count is normal. Re-evaluation: stable Disposition discussed with patient/family/significant other: Patient and son Case discussed with consulting clinician: Hospitalist, Dr. Kumar Lab Data Attestation: I reviewed the patient's lab results. Labs: Laboratory Results - last 24 hr 12/08/22 12/08/22 12/08/22 03:07 03:07 03:07 WBC 10.5 RBC 4.33 Hgb 13.9 Hct 43.6 MCV 100.7 H MCH 32.1 H MCHC 31.9 L RDW Std Deviation 50.6 H RDW Coeff of [place]bon[place] 13.7 Plt Count 309 MPV 9.7 Immature Gran % (Auto) 0.400 Neut % (Auto) 58.8 Lymph % (Auto) 29.4 [place] % (Auto) 9.4 Eos % (Auto) 1.3 Baso % (Auto) 0.7 Absolute Neuts (auto) 6.2 Absolute Lymphs (auto) 3.09 Nucleated RBC % 0 Sodium 137 Potassium 2.7 L* Chloride 99 Carbon Dioxide 29.0 Anion Gap 9 BUN 24 H Creatinine 1.18 H Estim Creat Clear Calc 38.83 Est GFR (MDRD) Af Amer 57 L Est GFR (MDRD) Non-Af 47 L BUN/Creatinine Ratio 20.3 H Glucose 98 Calcium 9.2 Magnesium Total Bilirubin 0.50 AST 18 ALT 24 Alkaline Phosphatase 51 Troponin I High Sens 25 B-Natriuretic Peptide 391.6 H Total Protein 7.1 Albumin 3.4 Globulin 3.7 Albumin/Globulin Ratio 0.9 12/08/22 03:07 WBC RBC Hgb Hct MCV MCH MCHC RDW Std Deviation RDW Coeff of [place] Plt Count MPV Immature Gran % (Auto) Neut % (Auto) Lymph % (Auto) [place] % (Auto) Eos % (Auto) Baso % (Auto) Absolute Neuts (auto) Absolute Lymphs (auto) Nucleated RBC % Sodium Potassium Chloride Carbon Dioxide Anion Gap BUN Creatinine Estim Creat Clear Calc Est GFR (MDRD) Af Amer Est GFR (MDRD) Non-Af BUN/Creatinine Ratio Glucose Calcium Magnesium 1.8 Total Bilirubin AST ALT Alkaline Phosphatase Troponin I High Sens B-Natriuretic Peptide Total Protein Albumin Globulin Albumin/Globulin Ratio Radiography Diagnostic Testing: Clinical Impression(s) from Imaging Studies Chest X-Ray 12/08/22 03:45 IMPRESSION: Diffuse bilateral airspace opacities consistent with edema versus pneumonia. Electronically Signed: Jorge Wilson DO at 4:02 EDT , Discharge Plan Dx/Rx/DC Orders Clinical Impression: Acute exacerbation of CHF (congestive heart failure), Hypoxia, Hypokalemia, Failure of outpatient treatment, History of atrial fibrillation Disposition Disposition: Acute Care [facility]
[2022-12-08 03:29] LABS: Absolute Lymphocyte Count 3.09 X10^3/uL (0.83-4.51); Absolute Neutrophil Count 6.2 X10^3/uL (2.0-7.7); Basophil# 0.07 X10^3/uL; Basophil% 0.7 % (0-1); Eosinophil# 0.14 X10^3/uL; Eosinophils% 1.3 % (0-5); Hematocrit 43.6 % (37-47); Hemoglobin 13.9 g/dL (12.0-15.0); Lymphocyte # 3.09 X10^3/ul (0.83-4.51); Lymphocyte % 29.4 % (19-41); Mean Corp Hgb Conc 31.9 g/dL (32-36); Mean Corpuscular Hgb 32.1 pg (27.0-32.0); Mean Corpuscular Volume 100.7 fL (81-99); Mean Platelet Vol. 9.7 fl (6.2-12.0); Monocyte# 0.99 X10^3/uL; Monocyte% 9.4 % (0-10); NRBC Flagged by Analyzer 0 % (0-5); Neutrophil # 6.18 X10^3/uL (2.7-7.7); Neutrophil % 58.8 % (47-70); Platelet Count 309 K/mm3 (150-450); RBC Distribution Width CV 13.7 % (11.6-14.6); RBC Distribution Width SD 50.6 fl (35.1-43.9); Red Blood Count 4.33 M/mm3 (4.2-5.4); White Blood Count 10.5 K/mm3 (4.4-11.0)
[2022-12-08 03:35] LABS: BNP,B-Type NATRIURETIC PEPTIDE 391.6 pg/mL (0-100)
--- NOTE | 2022-12-08 03:45 | RAD_ITS ---
INDICATION: sob EXAMINATION/TECHNIQUE: X-RAY - XR Chest 2 Views COMPARISON: 11/02/2022. FINDINGS: LINES/DEVICES: None. LUNGS: Diffuse bilateral airspace opacities. No evidence of a pleural effusion or a pneumothorax. MEDIASTINUM AND CARDIOVASCULAR STRUCTURES: Cardiac silhouette is normal in size and contour. Mediastinum is unremarkable. BONES AND SOFT TISSUES: No acute abnormality. RAD/Chest PA and Lateral IMPRESSION: Diffuse bilateral airspace opacities consistent with edema versus pneumonia. Electronically Signed: Jorge Wilson DO at 4:02 EDT ,
[2022-12-08 03:59] LABS: ALB/GLOB Ratio 0.9 RATIO (0.9-2.4); AST(SGOT) 18 U/L (15-37); Alanine Aminotransfer ALT/SGPT 24 U/L (13-56); Albumin, Serum 3.4 g/dL (3.2-5.0); Alkaline Phosphatase 51 U/L (45-117); Anion Gap 9 (5-15); BUN 24 mg/dL (7-18); BUN/Creat Ratio 20.3 RATIO (10-20); Calcium,Total 9.2 mg/dL (8.5-10.1); Chloride 99 mmol/L (98-107); Creatinine, Serum 1.18 mg/dL (0.55-1.02); EST Glomerular Filtration Rate 47 mL/min (>60); Est Glom Filt Rate - Afr Amer 57 mL/min (>60); Estimated Creatinine Clearance 38.83 ml/min; Globulin 3.7 g/dL (2.2-4.2); Glucose 98 mg/dL (74-106); Potassium 2.7 mmol/L (3.5-5.1); Protein, Total 7.1 g/dL (6.4-8.2); Sodium Level 137 mmol/L (136-145); Troponin-I HS (w/2H Reflex) 25 pg/mL (3.0-54.0)
[2022-12-08 04:11] LABS: Magnesium 1.8 mg/dL (1.6-2.6)
[2022-12-08] MEDS: Furosemide 40 MG/4 ML Vial IV ×3 (04:12→17:21)
[2022-12-08] MEDS: Potassium Chloride Oral Tablet 20 MEQ 40 MEQ PO (04:12)
--- NOTE | 2022-12-08 04:28 | VDLE_ITS ---
Reason For Study: LEG PAIN RIGHT LEFT GSV is normal. CFV is compressible, spontaneous, phasic, CFV is compressible, spontaneous, phasic, competent, and demonstrates normal competent and demonstrates normal augmentation. augmentation. FV is compressible, spontaneous, phasic, competent and demonstrates normal augmentation. POP V is compressible, spontaneous, phasic, competent and demonstrates normal augmentation. T/P Trunk is compressible. PTV is compressible. RT PerV is compressible. Procedure This is a venous duplex using B-mode, color flow and spectral Doppler. Exam performed portable in patient room. The exam was diagnostic. A preliminary report was called and/or faxed to [facility] SPECIALIST[facility] Pope. VL/Venous Duplex US, Unilateral Interpretation Summary There is no evidence of right lower extremity deep vein thrombosis. Right great saphenous vein appears patent and compressible segmentally. Normal flow patterns left common f emoral vein Ordering Physician: Yady Kumar Referring Physician: Jennie Turk Performed By: Joshua Moffett RVT
[2022-12-08 05:11] LABS: Reflex Troponin-HS? (from REC) Y
--- NOTE | 2022-12-08 05:24 | HP.PCM.HOS_ITS ---
HPI - General General Date of Admission: 12/08/22 Date of Service: 12/08/22 Chief Complaint: Dyspnea. HPI Narrative The patient is a 77 y/o F w/ PMHx: CKD stage II, CAD s/p PCI, Anxiety and Depression, Ischemic Cardiomyopathy/Diastolic CHF, HTN, HLD, Persistent atrial fibrillation, Allergic Rhinitis, recent discharge 10/30/22 following evaluation and treatment for diastolic CHF exacerbation with flash pulmonary edema with hypertensive emergency in addition to recent ED evaluation the Thursday prior secondary to RLE edema/pain/redness discharged on clindamycin for cellulitis who presents to the [facility] ED on 12/08/22 with history of increasing heart rate noted to be irregular awakening her from sleep at approximately 2 in the morning with o nset of dyspnea with a recent mild cough however she does have underlying allergies with recent increased lower extremity swelling prompting ED presentation. Patient has also had her lasix increased outpatient over the last week. Work-up in the ED included T97.6, heart rate 95, respiratory rate 19, 88% oxygenation with improvement to 92% on 2 L nasal cannula, negative SARS COVID antigen, BNP 391.6 with most recent prior BNP 11/02/2022 324.7 and prior to this during most recent admission 10/30/2022 331.4, EKG with sinus rhythm with multifocal PACs with no acute evidence of ischemia, CBC with WBC 10.5, he 113.9, platelets 309 without marked shift, CMP with potassium 2.7, BUN/creatinine 24/1.18, troponin 25, CXR with evidence of volume overload/congestion. In the ED patient ministered Lasix 40 mg IV x1 as well as potassium 40 mill equivalent p.o. x1. COUNTS INCLUDE 234 BEDS AT THE [facility] Medical History Arthritis Atherosclerotic heart disease of [place] coronary artery without angina pectoris Cellulitis Essential hypertension Fracture of metatarsal of left foot, closed History of carpal tunnel syndrome History of chronic back pain HLD (hyperlipidemia) Ischemic cardiomyopathy Myocardial infarct Non-STEMI (non-ST elevated myocardial infarction) Presence of stent in coronary artery (~08/08/21) Pulmonary edema Vocal cord granuloma Home Medications conjugated estrogens 0.625 mg tablet (Premarin) 0.625 mg PO DAILY hormones 02/12/14 [History Last Taken 10/09/21] Gastrocrom 200 mg PO 4X/DAY IBS 01/27/19 [History Last Taken 10/09/21] olopatadine 0.2 % eye drops (Pataday Once Daily Relief) 1 drp ophthalmic (eye) DAILY eye health 01/02/21 [History Last Taken Unknown] hydrocortisone acetate 25 mg rectal suppository 25 mg OH BID PRN hemorrhoids 08/20/21 [History Last Taken 10/09/21] budesonide 32 mcg/actuation nasal spray,aerosol 32 mcg intranasal ONCE PRN AL LERGIES 08/30/21 [History Last Taken Unknown] nitrofurantoin macrocrystal 50 mg capsule 50 mg PO DAILY infection 08/30/21 [History Last Taken 10/09/21] pot bicarb 344 mg-sod bicarb 1,050 mg-citric acid 1,000 mg efferv tab (Stephanie- [place] Gold) 1 tab PO Q4H PRN STOMACH 08/30/21 [History Last Taken Unknown] prednisolone acetate 0.12 % eye drops,suspension 1 drp ophthalmic (eye) Q OTHER DAY eye health 08/30/21 [History Last Taken 10/08/21] acetaminophen 500 mg tablet 1,000 mg PO TID pain 10/09/21 [History Last Taken 10/08/21] cetirizine 10 mg tablet (Zyrtec) 5 mg PO BID ALLERGIES 10/09/21 [History Last Taken 10/09/21] chlordiazepoxide HCl 5 mg capsule 5 mg PO .PRN PRN agitation #90 caps 10/02/22 [Rx Last Taken Unknown] prednisone 5 mg tablet 5 - 10 mg PO DAILY FLARE 10/09/22 [History Last Taken Unknown] atorvastatin 20 mg tablet 20 mg PO QHS Cholesterol 10/30/22 [History Last Taken 10/29/22] metoprolol tartrate 25 mg tablet 12.5 mg PO BID BP 11/12/22 [History Last Taken Unknown] prasugrel 5 mg tablet (Effient) 5 mg PO DAILY #90 tabs 11/19/22 [Rx Last Taken Unknown] triamterene 37.5 mg-hydrochlorothiazide 25 mg capsule 1 cap PO DAILY MGSAN brand please #90 caps 12/04/22 [Rx Last Taken Unknown] clindamycin HCl 300 mg capsule 300 mg PO 4X/DAY 12/08/22 [History Last Taken Unknown] furosemide 20 mg tablet 20 mg PO QHS 12/08/22 [History Last Taken Unknown] furosemide 20 mg tablet 40 mg PO DAILY 12/08/22 [History Last Taken Unknown] Allergy/AdvReac Type Severity Reaction Status Date / Time aspirin Allergy Severe Tight in Verified 12/08/22 02:57 throat, Severe tinnitus, nosebleeds, dizzy. clopidogrel Allergy Intermediate Hives Verified 12/08/22 02:57 alprazolam [From Xanax] Allergy Unknown Unknown Verified 12/08/22 02:57 [place] And Derivatives Allergy Unknown Unknown Verified 12/08/22 02:57 mushroom Allergy Unknown Unknown Verified 12/08/22 02:57 paroxetine [From Paxil] Allergy Unknown Unknown Verified 12/08/22 02:57 peanut Allergy Unknown Unknown Verified 12/08/22 02:57 ticagrelor [From Brilinta] Allergy Unknown unknown Verified 12/08/22 02:57 tolmetin [From Tolectin] Allergy Unknown Unknown Verified 12/08/22 02:57 Yeast Allergy Unknown Unknown Verified 12/08/22 02:57 acetaminophen Allergy Other Verified 12/08/22 02:57 [From Darvocet-N] codeine Allergy Other Verified 12/08/22 02:57 fluconazole [From Diflucan] Allergy Rash Verified 12/08/22 02:57 lidocaine Allergy Other Verified 12/08/22 02:57 meperidine HCl [From Demerol] Allergy Other Verified 12/08/22 02:57 metronidazole [From Metrogel] Allergy Rash Verified 12/08/22 02:57 Opioids - Morphine Analogues Allergy Other Verified 12/08/22 02:57 oxycodone HCl [From Percodan] Allergy Other Verified 12/08/22 02:57 oxycodone terephthalate Allergy Other Verified 12/08/22 02:57 [From Percodan] Penicillins Allergy Rash Verified 12/08/22 02:57 propoxyphene napsylate Allergy Other Verified 12/08/22 02:57 [From Darvocet-N] Sulfa (Sulfonamide Allergy Rash Verified 12/08/22 02:57 Antibiotics) amiodarone AdvReac Severe Severe Verified 12/08/22 02:57 urinary retention Beef Containing Products AdvReac Severe Unknown Verified 12/08/22 02:57 carvedilol AdvReac Severe Very Verified 12/08/22 02:57 lightheaded, Dizziness, floating on ceiling feeling. cheese AdvReac Mild Unknown Verified 12/08/22 02:57 egg AdvReac Unknown Unknown Verified 12/08/22 02:57 maltose AdvReac Unknown Unknown Verified 12/08/22 02:57 adhesive tape AdvReac Rash Verified 12/08/22 02:57 Cephalosporins AdvReac Shortness Verified 12/08/22 02:57 of breath cyclobenzaprine AdvReac NEEDS Verified 12/08/22 02:57 [From Flexeril] FOLLOW-UP epinephrine AdvReac NEEDS Verified 12/08/22 02:57 FOLLOW-UP estrogens, conjugated AdvReac NEEDS Verified 12/08/22 02:57 [From Premarin] FOLLOW-UP glycerin AdvReac Itching Verified 12/08/22 02:57 Iodinated Contrast Media AdvReac HALLUCINATI Verified 12/08/22 02:57 [iodine contrast] ONS lisinopril AdvReac Shortness Verified 12/08/22 02:57 of breath midazolam [From Versed] AdvReac NEEDS Verified 12/08/22 02:57 FOLLOW-UP ofloxacin [From Floxin] AdvReac NEEDS Verified 12/08/22 02:57 FOLLOW-UP phenol AdvReac Shortness Verified 12/08/22 02:57 of breath salicylates AdvReac Shortness Verified 12/08/22 02:57 of breath spider venom AdvReac Nausea Verified 12/08/22 02:57 spironolactone AdvReac GI upset Verified 12/08/22 02:57 and burning urination Family History Father Rheumatic heart disease Mother Cancer Other Allergies Asthma Surgical History H/O: hysterectomy History of D&C History of tonsillectomy History of tubal ligation Presence of coronary angioplasty implant and graft (~08/08/21) Social History household members: none Smoking Status: Never smoker alcohol intake: never substance use type: does not use diet: low salt and other what type of physical activity do you participate in: none seatbelt use: always do you feel safe at home: Yes additional social history: ROS ROS Narrative Admission Review of Systems: CONSTITUTIONAL: No weight loss, fever, chills, + weakness or fatigue. HEENT: Eyes: No visual loss, blurred vision, double vision or yellow sclerae. Ears, Nose, Throat: No hearing loss, sneezing, congestion, runny nose or sore throat. SKIN: + RLE erythema, improving per patient report. CARDIOVASCULAR: + Palpitations, edema. No chest pain, chest pressure or chest discomfort, orthopnea, syncopal events. RESPIRATORY: + Shortness of breath, No cough or sputum, wheezing, hemoptysis. GASTROINTESTINAL: No anorexia, nausea, vomiting or diarrhea, abdominal pain, melena, BRBPR. GENITOURINARY: No dysuria, frequency, urgency or retention. NEUROLOGICAL: No headache, dizziness, syncope, paralysis, ataxia, numbness or tingling in the extremities, focal weakness, change in bowel or bladder control, seizure. MUSCULOSKELETAL: + muscle, back pain, joint pain or stiffness. HEMATOLOGIC: No anemia, bleeding or bruising. LYMPHATICS: No enlarged nodes. No history of splenectomy. PSYCHIATRIC: No history of depression or anxiety. ENDOCRINOLOGIC: No reports of sweating, cold or heat intolerance. No polyuria or polydipsia. ALLERGIES: + history of hives, rhinitis. Vital Signs Vital Signs Vital Signs: 12/08/22 02:53 12/08/22 02:57 12/08/22 02:57 Temperature 97.6 F L Temperature Source Oral Pulse Rate 95 Respiratory Rate 19 H Respiratory Effort Normal Non-Labored Short of Breath Respiratory Pattern Normal Pulse Ox 88 Oxygen Delivery Method Room Air Oxygen Flow Rate (L/min) 12/08/22 03:04 Temperature Temperature Source Pulse Rate Respiratory Rate Respiratory Effort Respiratory Pattern Pulse Ox 92 Oxygen Delivery Method Nasal Cannula Oxygen Flow Rate (L/min) 2 Weight Weight: 212 lb 1.355 oz Body Mass Index (BMI) 33.2 Physical Exam Narrative Physical Examination: General: Awake, alert, oriented x 3 and cooperative, seated upright in the ED bed, fatigued appearing. Skin: Normal color, normal turgor, no icterus, no cyanosis except notable RLE dorsal foot/ankle to mid brody circumferential, mildly increased warmth to touch compared to left lower extremity which is unaffected HEENT: AT/NC, EOMI, PERRLA, MMM, no carotid bruits, + JVD noted. Lungs: Diminished, greater bases, mild rales bilateral bases, no rhonchi or wheezing. Heart: Currently regular rate and rhythm; no gallop, rub audible. Abdomen: Soft, obese, NTTP, ND, mildly hyperactive BS, no HSM. Extremities: No cyanosis, no clubbing, bilateral peripheral lower extremity edema, 3+ pitting although right greater than left, see skin. Neurological: Patient awake, alert, oriented as noted, cognitive function intact; pupils equally reactive to light and accommodation, cranial nerves grossly normal, moving all 4 extremities, no focal deficits, strength moderately to severely global decrease secondary to acute presentation. Psychiatric: Affect appears fatigued, no acute evidence of depressive or anxiety feelings. Results Lab / Micro Data Result Diagrams: 12/08/22 03:07 12/08/22 03:07 Labs: Laboratory Results - last 24 hr 12/08/22 03:07: WBC 10.5, RBC 4.33, Hgb 13.9, Hct 43.6, MCV 100.7 H, MCH 32.1 H, MCHC 31.9 L, RDW Std Deviation 50.6 H, RDW Coeff of [place] 13.7, Plt Count 309, MPV 9.7, Immature Gran % (Auto) 0.400, Neut % (Auto) 58.8, Lymph % (Auto) 29.4, [place] % (Auto) 9.4, Eos % (Auto) 1.3, Baso % (Auto) 0.7, Absolute Neuts (auto) 6.2, Absolute Lymphs (auto) 3.09, Nucleated RBC % 0 12/08/22 03:07: Sodium 137, Potassium 2.7 L*, Chloride 99, Carbon Dioxide 29.0, Anion Gap 9, BUN 24 H, Creatinine 1.18 H, Estim Creat Clear Calc 38.83, Est GFR (MDRD) Af Amer 57 L, Est GFR (MDRD) Non-Af 47 L, BUN/Creatinine Ratio 20.3 H, Glucose 98, Calcium 9.2, Total Bilirubin 0.50, AST 18, ALT 24, Alkaline Phosphatase 51, Troponin I High Sens 25, Total Protein 7.1, Albumin 3.4, Globulin 3.7, Albumin/Globulin Ratio 0.9 12/08/22 03:07: B-Natriuretic Peptide 391.6 H Micro: Microbiology 12/08/22 03:05 Nasal Secretion SARS-CoV-2 Antigen (Rapid) - Final Radiology Impression Chest X-Ray 12/08/22 03:45 IMPRESSION: Diffuse bilateral airspace opacities consistent with edema versus pneumonia. Electronically Signed: Jorge Wilson, DO at 4:02 EDT , Assessment & Plan Assessment/Plan (1) CHF exacerbation: PLAN: Plan The patient is a 77 y/o F w/ PMHx: CKD stage II, CAD s/p PCI, Anxiety and Depression, Ischemic Cardiomyopathy/Diastolic CHF, HTN, HLD, Persistent atrial fibrillation, Allergic Rhinitis, recent discharge 10/30/22 following evaluation and treatment for diastolic CHF exacerbation with flash pulmonary edema with hypertensive emergency who presents to the [facility] ED on 12/08/22 with history of increasing heart rate noted to be irregular awakening her from sleep at approximately 2 in the morning with onset of dyspnea with a recent mild cough however she does have underlying allergies with recent increased lower extremity swelling prompting ED presentation. #1. Acute Decompensated Diastolic CHF, potentially secondary to #3: Will admit to PCU, maintain on cardiac telemetry, obtain cardiac enzyme series, obtain serial EKGs, continue IV lasix diuresis, monitor I/Os, continue medical therapy with prasugrel, statin, metoprolol, spironolactone, not on FARAZ inhibitor/ARB, obtain TSH and magnesium level. Most recent ECHO noted 10/30/2022 with EF 60%, trivial MVI, unable to assess diastolic dysfunction. #2. Hypokalemia: Admission K+ 2.7, magnesium level pending, supplementation given, repeat level in AM. #3. PAF w/ potentially episode RVR: EKG with SR, potentially awoken by episode recurrent PAF w/ RVR. Continue prasugrel as well as home metoprolol regimen, patient not chronically anticoagulated secondary to prior refusal secondary to history of bleeding hemorrhoids. #4. Recent right lower extremity cellulitis diagnosis: Patient with recent ED visit with diagnosis of cellulitis right lower extremity the Thursday prior to cur rent presentation, discharged on clindamycin given significant allergy history with some GI side effect complaints per patient, she does report that right lower extremity erythema has improved with less erythema and less warmth. Certainly a component of this is likely secondary to venous stasis and edema with #1 however it is unilateral only therefore we will continue the antibiotic therapy at this time but to be cautious we will obtain right lower extremity duplex ultrasound, Place neck faraz wraps and elevate and de-escalate off antibiotic therapy if appears more overload related. #5. CAD w/ recent NSTEMI: PCI and drug-eluting stent to mid LAD, PTCA of side branch of diagonal 1 with 99% stenosis improved to 10-20% stenosis, and drug- eluting stent placement to mid RCA. Will continue prasugrel secondary to ASA/Plavix allergy, continue home statin, metoprolol home regimen, not on FARAZ inhibitor/ARB secondary to intolerance/allergy. #6. Anxiety and depression: Continue patient home chronic as needed Librium regimen, would benefit from outpatient follow-up and counseling for more appr opriate regimen is well. #7. Hypertension: Continue home regimen including triamterene-hydrochloro thiazide, spironolactone, metoprolol, PRN hydralazine. #8. Hyperlipidemia: We will continue patient home statin therapy. #9. Allergic Rhinitis: Continue patient home cetirizine and budesonide nasal steroid regimen. #10. Obesity: Weight loss and lifestyle changes encouraged. #11. Chronic Kidney Disease Stage II: Admission BUN/Cr 24/1.18, baseline renal function 0.9-1.1, repeat BMP in AM. #12. DVT prophylaxis: Lovenox. #13. CODE status: Patient MIQUEL is her son who is present and living will is currently in place. Full Code status. Admission Evaluation Time spent evaluating chart, patient history, patient evaluation, care planning and discussion with specialists: 75 minutes. Charges/Coding Visit Charges Inpatient E&M: 86758 Init Hosp L3
[2022-12-08] MEDS: 0.9% Saline Lock 10 ML Syringe IV ×4 (06:11→20:50)
[2022-12-08 06:22] LABS: Troponin-I HS 158 pg/mL (3.0-54.0)
--- NOTE | 2022-12-08 06:53 | NURSING ---
took pt home med Gastrocrom to pharmacy to get verify, Freddy from pharmacy will bring med back to the floor once med is verified by pharmacist.
[2022-12-08 09:20] LABS: Troponin-I HS 507 pg/mL (3.0-54.0)
[2022-12-08] MEDS: predniSONE 5 MG Tablet PO (09:31)
[2022-12-08] MEDS: Loratadine 10 MG Tablet PO (09:31)
[2022-12-08] MEDS: Enoxaparin 40 MG/0.4 ML Syringe SC (09:32)
[2022-12-08] MEDS: BACITRACIN/POLYMYXIN B 15 GM Tube 1 APPLIC TOPICAL ×2 (09:32→22:52)
[2022-12-08] MEDS: Triamterene 37.5MG/Hctz 25MG Capsule 1 CAP PO (09:33)
[2022-12-08] MEDS: Metoprolol Tartrate 25 MG Tablet 12.5 MG PO (09:33)
[2022-12-08] MEDS: Estrogens,Conj. 0.625 MG Tablet PO (09:33)
[2022-12-08] MEDS: CROMOLYN SODIUM 20 MG/ML 200 MG INHALATION ×4 (09:34→22:53)
[2022-12-08] MEDS: Clindamycin HCl 150 MG Capsule 300 MG PO ×4 (09:35→22:55)
[2022-12-08] MEDS: Ondansetron 4 MG/2 ML Vial IV ×2 (09:47→20:50)
--- NOTE | 2022-12-08 14:40 | CASEMGMT ---
RN?CM?TERRAZZO POLISHER?CM?to room to meet with patient for initial transition planning/care coordination?assessment.?RN?CM?introduced self and role at [facility].? Pt voices understanding and consents to?assessment?at this time.? Pt standing in room in no distress at this time.? Pt is A/O at this time and answers all questions appropriately.?? Care providers, pharmacy, and demographics verified/updated at this time. PCP:Dr Turk Specialists: Dr Coates, city driver; Dr Le, ENT; Dr Butler, DESIGN MAKER; Dr Allen-artist model in [place]; Dr Luna, podiatry Preferred [facility]acy: [facility] Insurance: [facility] Prescription Benefit: yes Living Will/HPOA: Pt has both LW and HCPOS, who is her son, Andrew Gutierres LNOK: son, friend/Ayanna Living Arrangements: Patient lives alone in multi- level home with 3-7 steps between levels and 5 steps to enter home. Patient states she is independent and able to ambulate stairs at home. Patient has friend that assists with cleaning and laundry Transportation: son, friend/Ayanna DME: Patient states she has grab bars, pulse ox, cane (uses outside only), and has walker available, but does not use. Pt states even if she does not qualify for home O2 and even if insurance does not pay for oxygen @ d/c, that she may be interested in paying for it Just in case I need it. She states she has spoken w/Dr Turk about this and that Dr Turk told her she would give her a script for it if she would like it. She states she is not sure yet. JUANITA GOMEZ informed her of the process for qualifying for Home O2 @ discharge from [facility]. She is aware to f/u with Dr Turk if she decides she would like to get oxygen in the future if she does not qualify for it @ discharge from [facility]. Pt also inquiring about [employer] portable concentrator. Questions answered. Pt aware to f/u with Dr Turk about this as well. HHC/SNF: No previous HHC or SNF. Pt wishes to return home and states has no concerns with going home at time of discharge.?CM?to follow for home oxygen needs and any further discharge planning/needs.? Pt voices no further concerns/needs at this time.? Advised pt to ask for?CM?if any further questions/concerns/needs arise.? Voices understanding. PLAN:??Home. Follow for possible Home O2 @ d/c. Consult placed for Pt Link Richard BSN?RN?CM
--- NOTE | 2022-12-08 17:26 | CON.PCM.CA_ITS ---
Assessment & Plan Assessment/Plan (1) CHF exacerbation: PLAN: She is presenting with evidence of diastolic heart failure. She did have an echocardiogram within the last month which demonstrated preserved ejection fraction. The above is likely secondary to her blood pressure medications. Her blood pressure was noted to be markedly elevated. We will recommend diuresis and aggressive treatment of her blood pressures. (2) Presence of stent in coronary artery: PLAN: She had a stent placed and has been noted to be patent within the last year. I will recommend that we treat her for her hypertension aggressively and depending on the findings after that further recommendations will be made as to whether she will undergo some kind of noninvasive or invasive therapy. (3) Hypertensive urgency: PLAN: She does have a history of hypertensive urgency. We will continue to aggressively treat her blood pressure medications. She does have an exhaustive list of allergies (4) Persistent atrial fibrillation: PLAN: She appears to be in sinus rhythm at this time and I would not recommend we make any changes. HPI Consult Data Date of Consult: 12/08/22 HPI Narrative HPI Narrative: COREEN JAY, is a 77 F who presents to the urgency room with right leg swelling as well as some shortness of breath. She had recently been discharged from the hospital in September of this year with diastolic heart failure and had an echocardiogram performed which demonstrated preserved left ventricular systolic function of 60%. She has a history of coronary artery disease with a non-ST elevated myocardial infarction in July 2021 in the setting of hypertensive emergency and pulmonary edema, PAF, hyperlipidemia, and hypertension. She underwent a heart catheterization on 08/08/2021 there resulted in successful PCI and drug-eluting stent to mid LAD, PTCA of side branch of diagonal 1 with 99% stenosis improved to 10-20% stenosis, and drug-eluting stent placement to mid RCA.? Her echocardiogram on 08/08/2021 showed ejection fraction of 40-45% and mildly dilated left ventricle.? She was admitted to [facility] in September 2021 for new onset atrial fibrillation.? She was started on IV amiodarone and transition to p.o. amiodarone. An echocardiogram on 10/09/2021 showed an ejection fraction of 45%. She was started on metoprolol for rate control.? She underwent a heart catheterization on 10/11/2021 showing patent stents.? She did not proceed with additional PCI at that time. She was seen in the emergency department on 09/29/2022 for concerns of atrial fibrillation.? She was noted be in atrial fibrillation with RVR.? She was later noted to be in sinus rhythm with PVCs.? She was restarted on metoprolol.? She was admitted and evaluated [facility] in October 2022 for shortness of breath and fluid volume overload.? She was seen in the Emergency Department on 11/02/2022 for left shoulder discomfort.? Throughout her hospitalization and ER visit her troponin was noted to be positive.? This was thought to be elevated on account of hypertension secondary to left shoulder pain. She really does not want to undergo a heart catheterization at this time. During this visit she has evidence of clear cellulitis but because of her shortness of breath cardiac enzymes were obtained as well as a natruretic peptide and both were elevated. At this particular time she appears to be doing much better. [facility] Medical History Arthritis Atherosclerotic heart disease of [place] coronary artery without angina pectoris Cellulitis Essential hypertension Fracture of metatarsal of left foot, closed History of carpal tunnel syndrome History of chronic back pain HLD (hyperlipidemia) Ischemic cardiomyopathy Myocardial infarct Non-STEMI (non-ST elevated myocardial infarction) Presence of stent in coronary artery (~08/08/21) Pulmonary edema Vocal cord granuloma Home Medications conjugated estrogens 0.625 mg tablet (Premarin) 0.625 mg PO DAILY hormones 02/12/14 [History Last Taken 10/09/21] Gastrocrom 200 mg PO 4X/DAY IBS 01/27/19 [History Last Taken 10/09/21] olopatadine 0.2 % eye drops (Pataday Once Daily Relief) 1 drp ophthalmic (eye) DAILY eye health 01/02/21 [History Last Taken Unknown] hydrocortisone acetate 25 mg rectal suppository 25 mg MO BID PRN hemorrhoids 08/20/21 [History Last Taken 10/09/21] budesonide 32 mcg/actuation nasal spray,aerosol 32 mcg intranasal ONCE PRN ALLERGIES 08/30/21 [History Last Taken Unknown] nitrofurantoin macrocrystal 50 mg capsule 50 mg PO DAILY infection 08/30/21 [History Last Taken 10/09/21] pot bicarb 344 mg-sod bicarb 1,050 mg-citric acid 1,000 mg efferv tab (Stephanie- [place] Gold) 1 tab PO Q4H PRN STOMACH 08/30/21 [History Last Taken Unknown] prednisolone acetate 0.12 % eye drops,suspension 1 drp ophthalmic (eye) Q OTHER DAY eye health 08/30/21 [History Last Taken 10/08/21] acetaminophen 500 mg tablet 1,000 mg PO TID pain 10/09/21 [History Last Taken 10/08/21] cetirizine 10 mg tablet (Zyrtec) 5 mg PO BID ALLERGIES 10/09/21 [History Last Taken 10/09/21] chlordiazepoxide HCl 5 mg capsule 5 mg PO .PRN PRN agitation #90 caps 10/02/22 [Rx Last Taken Unknown] prednisone 5 mg tablet 5 - 10 mg PO DAILY FLARE 10/09/22 [History Last Taken Unknown] atorvastatin 20 mg tablet 20 mg PO QHS Cholesterol 10/30/22 [History Last Taken 10/29/22] metoprolol tartrate 25 mg tablet 12.5 mg PO BID BP 11/12/22 [History Last Taken Unknown] prasugrel 5 mg tablet (Effient) 5 mg PO DAILY #90 tabs 11/19/22 [Rx Last Taken Unknown] triamterene 37.5 mg-hydrochlorothiazide 25 mg capsule 1 cap PO DAILY MGSAN brand please #90 caps 12/04/22 [Rx Last Taken Unknown] clindamycin HCl 300 mg capsule 300 mg PO 4X/DAY 12/08/22 [History Last Taken Unknown] furosemide 20 mg tablet 20 mg PO QHS 12/08/22 [History Last Taken Unknown] furosemide 20 mg tablet 40 mg PO DAILY 12/08/22 [History Last Taken Unknown] Allergy/AdvReac Type Severity Reaction Status Date / Time aspirin Allergy Severe Tight in Verified 12/08/22 02:57 throat, Severe tinnitus, nosebleeds, dizzy. clopidogrel Allergy Intermediate Hives Verified 12/08/22 02:57 alprazolam [From Xanax] Allergy Unknown Unknown Verified 12/08/22 02:57 [place] And Derivatives Allergy Unknown Unknown Verified 12/08/22 02:57 mushroom Allergy Unknown Unknown Verified 12/08/22 02:57 paroxetine [From Paxil] Allergy Unknown Unknown Verified 12/08/22 02:57 peanut Allergy Unknown Unknown Verified 12/08/22 02:57 ticagrelor [From Brilinta] Allergy Unknown unknown Verified 12/08/22 02:57 tolmetin [From Tolectin] Allergy Unknown Unknown Verified 12/08/22 02:57 Yeast Allergy Unknown Unknown Verified 12/08/22 02:57 acetaminophen Allergy Other Verified 12/08/22 02:57 [From Darvocet-N] codeine Allergy Other Verified 12/08/22 02:57 fluconazole [From Diflucan] Allergy Rash Verified 12/08/22 02:57 lidocaine Allergy Other Verified 12/08/22 02:57 meperidine HCl [From Demerol] Allergy Other Verified 12/08/22 02:57 metronidazole [From Metrogel] Allergy Rash Verified 12/08/22 02:57 Opioids - Morphine Analogues Allergy Other Verified 12/08/22 02:57 oxycodone HCl [From Percodan] Allergy Other Verified 12/08/22 02:57 oxycodone terephthalate Allergy Other Verified 12/08/22 02:57 [From Percodan] Penicillins Allergy Rash Verified 12/08/22 02:57 propoxyphene napsylate Allergy Other Verified 12/08/22 02:57 [From Darvocet-N] Sulfa (Sulfonamide Allergy Rash Verified 12/08/22 02:57 Antibiotics) amiodarone AdvReac Severe Severe Verified 12/08/22 02:57 urinary retention Beef Containing Products AdvReac Severe Unknown Verified 12/08/22 02:57 carvedilol AdvReac Severe Very Verified 12/08/22 02:57 lightheaded, Dizziness, floating on ceiling feeling. cheese AdvReac Mild Unknown Verified 12/08/22 02:57 egg AdvReac Unknown Unknown Verified 12/08/22 02:57 maltose AdvReac Unknown Unknown Verified 12/08/22 02:57 adhesive tape AdvReac Rash Verified 12/08/22 02:57 Cephalosporins AdvReac Shortness Verified 12/08/22 02:57 of breath cyclobenzaprine AdvReac NEEDS Verified 12/08/22 02:57 [From Flexeril] FOLLOW-UP epinephrine AdvReac NEEDS Verified 12/08/22 02:57 FOLLOW-UP estrogens, conjugated AdvReac NEEDS Verified 12/08/22 02:57 [From Premarin] FOLLOW-UP glycerin AdvReac Itching Verified 12/08/22 02:57 Iodinated Contrast Media AdvReac HALLUCINATI Verified 12/08/22 02:57 [iodine contrast] ONS lisinopril AdvReac Shortness Verified 12/08/22 02:57 of breath midazolam [From Versed] AdvReac NEEDS Verified 12/08/22 02:57 FOLLOW-UP ofloxacin [From Floxin] AdvReac NEEDS Verified 12/08/22 02:57 FOLLOW-UP phenol AdvReac Shortness Verified 12/08/22 02:57 of breath salicylates AdvReac Shortness Verified 12/08/22 02:57 of breath spider venom AdvReac Nausea Verified 12/08/22 02:57 spironolactone AdvReac GI upset Verified 12/08/22 02:57 and burning urination Family History Father Rheumatic heart disease Mother Cancer Other Allergies Asthma Surgical History H/O: hysterectomy History of D&C History of tonsillectomy History of tubal ligation Presence of coronary angioplasty implant and graft (~08/08/21) Social History household members: none Smoking Status: Never smoker alcohol intake: never substance use type: does not use diet: low salt and other what type of physical activity do you participate in: none seatbelt use: always do you feel safe at home: Yes additional social history: ROS Constitutional Constitutional: Denies fever(s) or weight loss Eyes Eyes: Reports systems reviewed and no addt'l complaints, except as documented ENT HEENT: Reports systems reviewed and no addt'l complaints, except as documented Cardiovascular Cardiovascular: Reports dyspnea at rest; Denies chest pain at rest, chest pain with activity, dyspnea on exertion, edema, palpitations or paroxysmal nocturnal dyspnea Respiratory/Chest Respiratory/Chest: Reports shortness of breath at rest; Denies dyspnea on exertion, productive cough or shortness of breath with exertion Gastrointestinal Gastrointestinal: Denies change in bowel habits, nausea, vomiting or weight changes Genitourinary Genitourinary: Denies difficulty urinating Musculoskeletal Musculoskeletal: Denies joint stiffness or muscle weakness Integumentary Integumentary: Denies lesions Neurologic Neurologic: Denies dizziness or syncope Psychiatric Psychiatric: Denies anxiety Endocrine Endocrinology: Denies excessive sweating or fatigue Hematologic/Lymphatic Hematologic/Lymphatic: Denies anemia Allergic/Immunologic Allergic/Immunologic: Denies seasonal rhinorrhea Physical Exam Const alert, oriented x3 and no apparent distress General Appearance: cooperative HEENT hearing grossly normal bilaterally Head and Scalp: atraumatic Eyes EOMs intact bilaterally Neck General: normal visual inspection Chest inspection of chest normal and palpation of chest normal Resp normal respiratory effort Auscultation: clear to auscultation bilaterally Cardio regular rate, regular rhythm, S1 normal heart sound and S2 normal heart sound Jugular Venous Distention: JVD GI normal to inspection, nondistended, normoactive bowel sounds Extremity no pedal edema Extremity Narrative: Right lower extremity is noted to be reddened Peripheral Pulses: Yes pulses 2+ throughout and femoral pulses present Skin no rashes or lesions noted Neuro oriented x3 and CN's II-XII intact bilaterally Psych Appearance: grossly normal and appropriate Risk Stratification Risk Stratification Applicable: Yes Age >/= 65: Yes >/= 3 CAD Risk Factors (HTN, HLD, DM, family hx of CAD, or current smoker): Yes Aspirin Use in the Past 7 Days: Yes Severe Angina (>/= episodes in 24 hours): No EKG ST Changes >/= 0.5mm: No Positive Cardiac Marker: Yes GONZALEZ Risk Stratification Score: 4 GONZALEZ % Risk: 20% Risk Objective Data Vital Signs: Vital Signs Temp Pulse Resp BP Pulse Ox O2 Del Method O2 Flow Rate 97.6 F L 87 18 142/82 H 99 Nasal Cannula 2 12/08/22 11:00 12/08/22 11:00 12/08/22 11:00 12/08/22 11:00 12/08/22 11:00 12/08/22 11:00 12/08/22 11:00 Oxygen Flow Rate (L/min) 2 Oxygen Delivery Method Nasal Cannula Weight: 180 lb 15.992 oz Body Mass Index (BMI) 27.5 Intake & Output: Intake and Output for Last 24 Hours 12/06/22 12/07/22 12/08/22 23:59 23:59 23:59 Intake Total 140 / 140 Output Total 1600 / 1600 Balance -1460 / -1460 Lab / Micro Data Result Diagrams: 12/08/22 03:07 12/08/22 03:07 Labs: Laboratory Results - last 24 hr 12/08/22 03:07: WBC 10.5, RBC 4.33, Hgb 13.9, Hct 43.6, MCV 100.7 H, MCH 32.1 H, MCHC 31.9 L, RDW Std Deviation 50.6 H, RDW Coeff of [place] 13.7, Plt Count 309, MPV 9.7, Immature Gran % (Auto) 0.400, Neut % (Auto) 58.8, Lymph % (Auto) 29.4, [place] % (Auto) 9.4, Eos % (Auto) 1.3, Baso % (Auto) 0.7, Absolute Neuts (auto) 6.2, Absolute Lymphs (auto) 3.09, Nucleated RBC % 0 12/08/22 03:07: Sodium 137, Potassium 2.7 L*, Chloride 99, Carbon Dioxide 29.0, Anion Gap 9, BUN 24 H, Creatinine 1.18 H, Estim Creat Clear Calc 38.83, Est GFR (MDRD) Af Amer 57 L, Est GFR (MDRD) Non-Af 47 L, BUN/Creatinine Ratio 20.3 H, Glucose 98, Calcium 9.2, Total Bilirubin 0.50, AST 18, ALT 24, Alkaline Phosphatase 51, Troponin I High Sens 25, Total Protein 7.1, Albumin 3.4, Globulin 3.7, Albumin/Globulin Ratio 0.9 12/08/22 03:07: B-Natriuretic Peptide 391.6 H 12/08/22 03:07: Magnesium 1.8 12/08/22 05:30: Troponin I High Sens 158 H* 12/08/22 08:41: Troponin I High Sens 507 H* Micro: Microbiology 12/08/22 03:05 Nasal Secretion SARS-CoV-2 Antigen (Rapid) - Final Cardiology Labs/Tests 12/08/22 03:07: WBC 10.5, RBC 4.33, Hgb 13.9, Hct 43.6, MCV 100.7 H, MCH 32.1 H, MCHC 31.9 L, Plt Count 309, MPV 9.7, Immature Gran % (Auto) 0.400, Neut % (Auto) 58.8, Lymph % (Auto) 29.4, [place] % (Auto) 9.4, Eos % (Auto) 1.3, Baso % (Auto) 0.7, Absolute Neuts (auto) 6.2, Nucleated RBC % 0 12/08/22 03:07: Sodium 137, Potassium 2.7 L*, Chloride 99, Carbon Dioxide 29.0, Anion Gap 9, BUN 24 H, Creatinine 1.18 H, Est GFR (MDRD) Af Amer 57 L, Est GFR (MDRD) Non-Af 47 L, BUN/Creatinine Ratio 20.3 H, Glucose 98, Calcium 9.2, Total Bilirubin 0.50 12/08/22 03:07: B-Natriuretic Peptide 391.6 H 12/08/22 03:07: Magnesium 1.8 Rhythm: EKG: ECHO: Stress Test: Cardiac Cath: PCI: CT Surgery: Holter monitor: EPS: PPM: CXR: Chest CT Scan: Radiography Diagnostic Testing: Radiology Impression Chest X-Ray 12/08/22 03:45 IMPRESSION: Diffuse bilateral airspace opacities consistent with edema versus pneumonia. Electronically Signed: Jorge Wilson DO at 4:02 EDT , Venous Doppler Study 12/08/22 04:28 Interpretation Summary There is no evidence of right lower extremity deep vein thrombosis. Right great saphenous vein appears patent and compressible segmentally. Normal flow patterns left common femoral vein Ordering Physician: Yady Kumar Referring Physician: Jennie Turk Performed By: Joshua Moffett, T
--- NOTE | 2022-12-08 17:50 | PCM.HOSP.N ---
Hospitalist Note Patient is a 77-year-old white female who was admitted early this morning with what sounds to be like flash pulmonary edema secondary to hypertensive emergency. She was also recently diagnosed with right lower extremity cellulitis. She presented to the emergency department early this morning with increasing heart rate acute onset dyspnea. Her Lasix was increased as an outpatient over the last week. Respiratory work-up has been negative for any signs of infection. Cardiac enzymes were and trended up from 25 on admission to 507. Cardiology was consulted for further evaluation. From a heart failure standpoint she seems to be clinically much improved. We will continue diuresis and aggressive management of her blood pressures. She does have previous stent that was done and noted to be patent within the last year and recommended that we aggressively treat her for her hypertension and consider further noninvasive or invasive therapy depending on these results. Clinic clinically much improved and currently on room air. Blood pressures are overall much better. Will consider possible discharge tomorrow if patient remains clinically stable and blood pressures remain improved.
[2022-12-08] MEDS: Acetaminophen 325 MG Tablet 650 MG PO (20:23)
[2022-12-08] MEDS: Metoprolol Tartrate 25 MG Tablet PO (22:49)
[2022-12-08] MEDS: Atorvastatin Calcium 80 MG Tablet PO (22:52)
[2022-12-09 04:30] VITALS: BP 117/55; PULSE 72; RESP 18; TEMP 36.2; O2SAT 94
[2022-12-09 04:51] VITALS: BMI 28.1
[2022-12-09 05:10] LABS: Absolute Lymphocyte Count 2.18 X10^3/uL (0.83-4.51); Basophil# 0.03 X10^3/uL; Basophil% 0.3 % (0-1); Hematocrit 38.2 % (37-47); Hemoglobin 12.7 g/dL (12.0-15.0); Lymphocyte # 2.18 X10^3/ul (0.83-4.51); Lymphocyte % 21.3 % (19-41); Mean Corp Hgb Conc 33.2 g/dL (32-36); Mean Corpuscular Hgb 32.6 pg (27.0-32.0); Mean Corpuscular Volume 97.9 fL (81-99); Mean Platelet Vol. 9.3 fl (6.2-12.0); Monocyte# 0.92 X10^3/uL; NRBC Flagged by Analyzer 0 % (0-5); Neutrophil # 6.97 X10^3/uL (2.7-7.7); Platelet Count 275 K/mm3 (150-450); RBC Distribution Width CV 13.8 % (11.6-14.6); RBC Distribution Width SD 50.1 fl (35.1-43.9); White Blood Count 10.2 K/mm3 (4.4-11.0)
[2022-12-09 05:51] LABS: ALB/GLOB Ratio 0.8 RATIO (0.9-2.4); AST(SGOT) 23 U/L (15-37); Alanine Aminotransfer ALT/SGPT 21 U/L (13-56); Albumin, Serum 2.6 g/dL (3.2-5.0); Alkaline Phosphatase 40 U/L (45-117); Anion Gap 5 (5-15); BUN 20 mg/dL (7-18); BUN/Creat Ratio 16.5 RATIO (10-20); Calcium,Total 8.4 mg/dL (8.5-10.1); Chloride 96 mmol/L (98-107); Creatinine, Serum 1.21 mg/dL (0.55-1.02); EST Glomerular Filtration Rate 46 mL/min (>60); Est Glom Filt Rate - Afr Amer 55 mL/min (>60); Estimated Creatinine Clearance 39.28 ml/min; Globulin 3.2 g/dL (2.2-4.2); Glucose 88 mg/dL (74-106); Potassium 2.8 mmol/L (3.5-5.1); Protein, Total 5.8 g/dL (6.4-8.2); Sodium Level 131 mmol/L (136-145)
[2022-12-09 07:58] VITALS: O2SAT 91
[2022-12-09] MEDS: CROMOLYN SODIUM 20 MG/ML 200 MG INHALATION (08:22)
[2022-12-09] MEDS: Triamterene 37.5MG/Hctz 25MG Capsule 1 CAP PO (08:26)
[2022-12-09] MEDS: predniSONE 5 MG Tablet PO (08:26)
[2022-12-09] MEDS: Clindamycin HCl 150 MG Capsule 300 MG PO (08:26)
[2022-12-09] MEDS: Estrogens,Conj. 0.625 MG Tablet PO (08:26)
[2022-12-09] MEDS: Loratadine 10 MG Tablet PO (08:26)
[2022-12-09 08:34] VITALS: BP 136/58; PULSE 83
[2022-12-09] MEDS: Metoprolol Tartrate 25 MG Tablet PO (08:34)
[2022-12-09] MEDS: Potassium Chloride Oral Tablet 20 MEQ 60 MEQ PO ×2 (09:38→12:34)
[2022-12-09] MEDS: Furosemide 40 MG Tablet PO (09:38)
--- NOTE | 2022-12-09 10:36 | PCM.DC.SUM ---
Providers Date of Admission: 12/08/22 Date of Discharge: 12/09/22 Primary Care Physician: Dr. Jennie Turk MD Reason For Visit: CHF EXACERBATION, HYPOXIA Diagnosis Discharge Diagnosis (1) CHF exacerbation: Status: Chronic Code(s): I50.9 - Heart failure, unspecified (2) Presence of stent in coronary artery: Status: Chronic Code(s): Z95.5 - Presence of coronary angioplasty implant and graft (3) Persistent atrial fibrillation: Status: Acute Code(s): I48.19 - Other persistent atrial fibrillation (4) Hypertensive emergency: Status: Acute Code(s): I16.1 - Hypertensive emergency Medications at Discharge Home Medications conjugated estrogens 0.625 mg tablet (Premarin) 0.625 mg PO DAILY hormones 02/12/14 Gastrocrom 200 mg PO 4X/DAY IBS 01/27/19 olopatadine 0.2 % eye drops (Pataday Once Daily Relief) 1 drp ophthalmic (eye) DAILY eye health 01/02/21 hydrocortisone acetate 25 mg rectal suppository 25 mg [place] BID PRN hemorrhoids 08/20/21 budesonide 32 mcg/actuation nasal spray,aerosol 32 mcg intranasal ONCE PRN ALLERGIES 08/30/21 nitrofurantoin macrocrystal 50 mg capsule 50 mg PO DAILY infection 08/30/21 pot bicarb 344 mg-sod bicarb 1,050 mg-citric acid 1,000 mg efferv tab (Stephanie-Henniker Gold) 1 tab PO Q4H PRN STOMACH 08/30/21 prednisolone acetate 0.12 % eye drops,suspension 1 drp ophthalmic (eye) Q OTHER DAY eye health 08/30/21 acetaminophen 500 mg tablet 1,000 mg PO TID pain 10/09/21 cetirizine 10 mg tablet (Zyrtec) 5 mg PO BID ALLERGIES 10/09/21 chlordiazepoxide HCl 5 mg capsule 5 mg PO .PRN PRN agitation #90 caps 10/02/22 prednisone 5 mg tablet 5 - 10 mg PO DAILY FLARE 10/09/22 atorvastatin 20 mg tablet 20 mg PO QHS Cholesterol 10/30/22 prasugrel 5 mg tablet (Effient) 5 mg PO DAILY #90 tabs 11/19/22 triamterene 37.5 mg-hydrochlorothiazide 25 mg capsule 1 cap PO DAILY MGSAN brand please #90 caps 12/04/22 clindamycin HCl 300 mg capsule 300 mg PO 4X/DAY 12/08/22 furosemide 20 mg tablet 20 mg PO QHS 12/08/22 furosemide 20 mg tablet 40 mg PO DAILY 12/08/22 metoprolol tartrate 25 mg tablet 25 mg PO BID #60 tabs 12/09/22 nifedipine 60 mg tablet,extended release 24 hr 60 mg PO DAILY #30 tabs 12/09/22 Hospital Course Operations None Procedures EKG Summary of Care Provided Minutes Spent on Discharge: 37 Hospital Course: Ms Gutierres is a 77-year-old white female who presented to the emergency department at [facility] on 12/08/2022 early in the morning complaining of shortness of breath. The patient does have issues with flash pulmonary edema related to blood pressure spikes from her chronic diastolic heart failure. Her most recent admission for this was in October 2022. She had recent evaluation emergency department on Thursday previous to admission and was diagnosed with cellulitis of her right lower extremity and she was placed on clindamycin. Overall this seems to be improving slowly and she was maintained on clindamycin during her hospital course. She woke urgently from sleep early in the morning of 12/08/2022 with increased heart rate, acute onset of dyspnea, mild cough and has had worsening lower extremity edema. Oxygen saturation was 88% on room air and improved to 92% on 2 L nasal cannula. COVID-19 and flu were negative. BNP was elevated at 324.4 and chest x-ray look like volume overload and congestion. Patient was given Lasix emergency department as well as potassium as she had hypokalemia and was admitted to the PCU. Her cardiac enzymes were cycled and she had elevation in her cardiac enzymes during her hospital course. With her cardiac history we did have cardiology evaluate her and they feel that these enzyme elevations are likely related to her hypertensive emergency on presentation as her blood pressure was markedly elevated. The patient states she has marked blood pressure elevation with pain or with anxiety and she does seem to have a lot of anxiety issues at baseline. No further cardiac work-up was recommended by cardiology but we did do some titrating of her medications for her blood pressure. Her metoprolol was increased from 12.5 mg p.o. twice daily to 25 mg p.o. twice daily and amlodipine was added. Patient reported that she had been on amlodipine. Unrulyely and it was stopped secondary to side effects she was suffering so we did stop the amlodipine and transition to nifedipine. Amlodipine was placed on allergy list for her so this does not inadvertently get reinitiated again. She was able to be weaned to room air by the afternoon of 12/08/2022. Overall her blood pressures improved and were stabilized through the night. Blood pressure at discharge was 136/58. She is to follow-up with a nurse practitioner from the cardiology office within the next 1 to 2 weeks after discharge and this appointment was made prior to discharge-please see discharge planning for instructions. She is also to follow-up with her primary care physician within the next 1 to 2 weeks as able to schedule. She did have some potassium issues during her hospitalization we did replace these with oral potassium. All of her other medications were continued at discharge other than that noted above changes. Discharge diagnoses: Hypertensive emergency Flash pulmonary edema secondary to elevated blood pressures Troponin elevation secondary to elevated blood pressure Right lower extremity cellulitis Recurrent UTI with suppression Hypertension Hyperlipidemia Chronic pain CAD History of ischemic cardiomyopathy Multiple medication allergies Physical Exam Narrative Patient states she is overall feeling better and would like to go home. She was placed on amlodipine however reports that she had an allergic reaction to this that was undefined and Dr. Coates had stopped this previously. I discussed with Dr. Shaw and he will switch this to nifedipine. Cellulitis continues to improve and patient is anxious to go home. Const alert, oriented x3, no apparent distress and well nourished Constitutional Narrative: Elderly white female sitting up in bed, appears comfortable and nontoxic, on room air with no signs of respiratory distress General Appearance: cooperative, comfortable, well kempt and well developed Orientation / Consciousness: awake, oriented to person, oriented to place and oriented to time Exam Limitations: no limitations Nutritional Appearance: overweight HEENT normocephalic, head/scalp atraumatic and moist oral mucous membranes HEENT Narrative: Mild hearing loss Eyes PERRL, EOMs intact bilaterally and conjunctivae normal Eyes Narrative: No scleral icterus Neck no lymphadenopathy, supple and no JVD Neck Narrative: Trachea midline without thyroid enlargement Resp normal respiratory effort, no retractions, no use of accessory muscles and clear to auscultation bilaterally Auscultation: Negative for rales, rhonchi or wheezes Cardio regular rate, regular rhythm, S1 normal heart sound, S2 normal heart sound, no murmurs, no rub, no gallops and no clicks GI normal to inspection, nondistended, normoactive bowel sounds, soft to palpation and non-tender Extremity Extremity Narrative: Right lower extremity erythema is improving, bilateral trace to 1+ pitting edema, no cyanosis or clubbing Skin skin turgor normal and no jaundice Skin Narrative: Right lower extremity cellulitis as noted above Neuro oriented x3, CN's II-XII intact bilaterally, moves all extremities and no focal motor deficits Speech: speech normal Psych Mood & Affect: anxious Weight / BMI Weight Weight: 83.9 kg Body Mass Index (BMI) 28.1 ABG / Lab / Microbiology Data Result Diagrams: 12/09/22 04:40 12/09/22 04:40 Laboratory: Laboratory Results - last 24 hr 12/09/22 04:40: WBC 10.2, RBC 3.90 L, Hgb 12.7, Hct 38.2, MCV 97.9, MCH 32.6 H, MCHC 33.2, RDW Std Deviation 50.1 H, RDW Coeff of Eboin 13.8, Plt Count 275, MPV 9.3, Immature Gran % (Auto) 0.400, Neut % (Auto) 68.0, Lymph % (Auto) 21.3, [place] % (Auto) 9.0, Eos % (Auto) 1.0, Baso % (Auto) 0.3, Absolute Neuts (auto) 7.0, Absolute Lymphs (auto) 2.18, Nucleated RBC % 0 12/09/22 04:40: Sodium 131 L, Potassium 2.8 L, Chloride 96 L, Carbon Dioxide 30.0, Anion Gap 5, BUN 20 H, Creatinine 1.21 H, Estim Creat Clear Calc 39.28, Est GFR (MDRD) Af Amer 55 L, Est GFR (MDRD) Non-Af 46 L, BUN/Creatinine Ratio 16.5, Glucose 88, Calcium 8.4 L, Total Bilirubin 1.10 H, AST 23, ALT 21, Alkaline Phosphatase 40 L, Total Protein 5.8 L, Albumin 2.6 L, Globulin 3.2, Albumin/Globulin Ratio 0.8 L Microbiology: Microbiology 12/08/22 03:05 Nasal Secretion SARS-CoV-2 Antigen (Rapid) - Final Radiography Diagnostic Testing: Radiology Impression Venous Doppler Study 12/08/22 04:28 Interpretation Summary There is no evidence of right lower extremity deep vein thrombosis. Right great saphenous vein appears patent and compressible segmentally. Normal flow patterns left common femoral vein Ordering Physician: Yady Kumar Referring Physician: Jennie Turk Performed By: Joshua Moffett RVT D/C Instructions Discharge Diet: Low fat / Low cholesterol, 8 Cup Fluid Restriction and 4000 mg Sodium Diet Discharge Activity: Return to Normal Activity Meaningful Use Info Meaningful Use Diagnoses (Choose all that apply): None applicable Discharge Plan Admission Admit Date/Time: 12/08/22 04:07 Primary Reason for Your Visit: Shortness of breath Attending Provider: Patricia Rodrigues Primary Care Provider: Jennie Turk Consulting Providers: Yady Kumar Instructions Additional Instructions / Restrictions: 1. Dr. Shaw has recommended increasing her metoprolol from 12.5 mg to 25 mg twice daily. New prescription was sent to the pharmacy 2. Dr. Shaw has also recommended the addition of nifedipine to your blood pressure regimen. New prescription was sent to your pharmacy. Discharge Orders/Prescriptions Prescriptions: New nifedipine 60 mg Tablet Extended Release 24hr 60 mg PO DAILY Qty: 30 1RF metoprolol tartrate 25 mg Tablet 25 mg PO BID Qty: 60 1RF Continued olopatadine [Pataday Once Daily Relief] 0.2 % drops 1 drp ophthalmic (eye) DAILY prednisolone acetate 0.12 % drops,suspension 1 drp ophthalmic (eye) Q OTHER DAY Rx Instructions: RT EYE ONLY Stephanie-Henniker Gold 344-1,050-1,000 mg tablet, effervescent 1 tab PO Q4H PRN (Reason: STOMACH) budesonide 32 mcg/actuation aerosol 32 mcg intranasal ONCE PRN (Reason: ALLERGIES) prednisone 5 mg tablet 5 - 10 mg PO DAILY Rx Instructions: 5 mg maintenance dose, 10 mg if having flare up prasugrel [Effient] 5 mg tablet 5 mg PO DAILY Qty: 90 3RF Premarin 0.625 MG tablet 0.625 mg PO DAILY Gastrocrom 200 mg PO 4X/DAY nitrofurantoin macrocrystal 50 mg capsule 50 mg PO DAILY Label Comments: Take 1 capsule by mouth once daily. May increase to 4 times daily for acute UTI for 5 days as needed then resume once daily. Rx Instructions: Take 1 capsule by mouth once daily. May increase to 4 times daily for acute UTI for 5 days as needed then resume once daily. cetirizine [Zyrtec] 10 mg Tablet 5 mg PO BID acetaminophen 500 mg Tablet 1,000 mg PO TID atorvastatin 20 mg tablet 20 mg PO QHS furosemide 20 mg tablet 40 mg PO DAILY clindamycin HCl 300 mg capsule 300 mg PO 4X/DAY furosemide 20 mg tablet 20 mg PO QHS Label Comments: take 1 to 2 tablets by mouth twice a day if needed for LEG SWELLING hydrocortisone acetate 25 mg suppository 25 mg [place] BID PRN (Reason: hemorrhoids) chlordiazepoxide HCl 5 mg capsule 5 mg PO .PRN PRN (Reason: agitation) Qty: 90 3RF triamterene-hydrochlorothiazid 37.5-25 mg capsule 1 cap PO DAILY Qty: 90 3RF Discontinued metoprolol tartrate 25 mg tablet 12.5 mg PO BID Hold Instructions: 09/19/2022-? side effects Rx Instructions: 12.5 mg orally Breakfast and Dinner, and take 6.25 mg (1/4 of a tablet) at 10 pm; Referrals / Follow Up: Bina Avery NP, [facility] [Non-Staff] - 12/15/22 2:00 pm Disposition Disposition (needs filled in before D/C Order can be placed): Home, Self Care Charges/Coding Visit Charges Inpatient E&M: 84955 Disch Hosp >30min
--- NOTE | 2022-12-09 11:24 | PHA.DC.MC ---
Pharmacy Service has performed discharge medication reconciliation and counseling for this patient. 1. NIFEDIPINE XL 60MG PO DAILY The patient's discharge medication list was reviewed for discrepancies and discrepancies were resolved. Home Medications conjugated estrogens 0.625 mg tablet (Premarin) 0.625 mg PO DAILY hormones 02/12/14 Gastrocrom 200 mg PO 4X/DAY IBS 01/27/19 olopatadine 0.2 % eye drops (Pataday Once Daily Relief) 1 drp ophthalmic (eye) DAILY eye health 01/02/21 hydrocortisone acetate 25 mg rectal suppository 25 mg [place] BID PRN hemorrhoids 08/20/21 budesonide 32 mcg/actuation nasal spray,aerosol 32 mcg intranasal ONCE PRN ALLERGIES 08/30/21 nitrofurantoin macrocrystal 50 mg capsule 50 mg PO DAILY infection 08/30/21 pot bicarb 344 mg-sod bicarb 1,050 mg-citric acid 1,000 mg efferv tab (Stephanie-Frederick Gold) 1 tab PO Q4H PRN STOMACH 08/30/21 prednisolone acetate 0.12 % eye drops,suspension 1 drp ophthalmic (eye) Q OTHER DAY eye health 08/30/21 acetaminophen 500 mg tablet 1,000 mg PO TID pain 10/09/21 cetirizine 10 mg tablet (Zyrtec) 5 mg PO BID ALLERGIES 10/09/21 chlordiazepoxide HCl 5 mg capsule 5 mg PO .PRN PRN agitation #90 caps 10/02/22 prednisone 5 mg tablet 5 - 10 mg PO DAILY FLARE 10/09/22 atorvastatin 20 mg tablet 20 mg PO QHS Cholesterol 10/30/22 prasugrel 5 mg tablet (Effient) 5 mg PO DAILY #90 tabs 11/19/22 triamterene 37.5 mg-hydrochlorothiazide 25 mg capsule 1 cap PO DAILY MGSAN brand please #90 caps 12/04/22 clindamycin HCl 300 mg capsule 300 mg PO 4X/DAY 12/08/22 furosemide 20 mg tablet 20 mg PO QHS 12/08/22 furosemide 20 mg tablet 40 mg PO DAILY 12/08/22 metoprolol tartrate 25 mg tablet 25 mg PO BID #60 tabs 12/09/22 nifedipine 60 mg tablet,extended release 24 hr 60 mg PO DAILY #30 tabs 12/09/22 The patient was counseled on the following discharge medications and changes in medications for homegoing were reviewed. The Reason for Use, instructions for use, and potential side effects were reviewed for all new medications. The patient's questions regarding all of their medications were answered. The patient was able to verbally demonstrate an understanding of their discharge medications.
[2022-12-09 11:50] VITALS: BP 118/70; PULSE 83; RESP 16; TEMP 36.4; O2SAT 97
--- NOTE | 2022-12-09 12:02 | NURSING ---
Pt refused procardia. Education provided by this RN and by pharmacist. Pt stated she also called her own pharmacist for information on procardia. Pt stated she wants to take it tomorrow morning at home.
--- NOTE | 2022-12-09 12:52 | NURSING ---
Per pt she has an appointment with Coy Marte in January. She has already called the office to see if she can get in sooner. Pt also verbalized that she does not see the [facility] listed on discharge instructions. Advised to change appointment with office, pt verbalized that she will be doing that. Discharge education provided. Educated on medications. Pt stated that she will be speaking with her physician prior to taking procardia. Further education provided, pt verbalized understanding.
== END 2022-12-09 13:38 | disposition home or self-care (01) | DRG 291 ==
LOC: ED 04:16 → PCU 06:57
PROVIDERS: Admitting Provider Family Medicine; Emergency Provider Emergency Medicine; PCP Internal Medicine; Visit Provider Internal Medicine
DX: I13.0 Hypertensive heart and chronic kidney disease with heart failure and stage 1 through stage 4 chronic kidney disease, or unspecified chronic kidney disease (principal); I50.33 Acute on chronic diastolic (congestive) heart failure; I48.19 Other persistent atrial fibrillation; I16.1 Hypertensive emergency; L03.115 Cellulitis of right lower limb; E78.5 Hyperlipidemia, unspecified; I25.5 Ischemic cardiomyopathy; M54.9 Dorsalgia, unspecified; N18.2 Chronic kidney disease, stage 2 (mild); F41.9 Anxiety disorder, unspecified; I25.10 Atherosclerotic heart disease of native coronary artery without angina pectoris; E87.6 Hypokalemia; J30.9 Allergic rhinitis, unspecified; I25.2 Old myocardial infarction; R77.8 Other specified abnormalities of plasma proteins; R09.02 Hypoxemia; G89.29 Other chronic pain; I49.3 Ventricular premature depolarization; E66.9 Obesity, unspecified; Z20.822 Contact with and (suspected) exposure to COVID-19; Z79.51 Long term (current) use of inhaled steroids; Z79.52 Long term (current) use of systemic steroids; Z79.02 Long term (current) use of antithrombotics/antiplatelets; Z95.5 Presence of coronary angioplasty implant and graft; Z79.899 Other long term (current) drug therapy
CPT/HCPCS: 36415; 71046; 80053; 83735; 83880; 84132; 84484; 85025; 87811; 93005; 93971; 94668; 96372; 96374; 96375; 96376; 97802; 99221; 99252; 99285; A4216; G0378; G0463; J1940; J2405

== ENCOUNTER → 2022-12-31 | Outpatient (CLI) | payer MEDICARE, SELFPAY | END | disposition home or self-care (01) | LOC: LAB 14:49 | PROVIDERS: PCP Internal Medicine; Referring Provider Nurse Practitioner Family; Visit Provider Nurse Practitioner Family | DX: Z79.899 Other long term (current) drug therapy (principal) | CPT/HCPCS: 36415; 84132 ==

== ENCOUNTER → 2023-02-09 | Outpatient (CLI) | payer MEDICARE, SELFPAY | END | disposition home or self-care (01) | LOC: PSN 11:58 | PROVIDERS: PCP Internal Medicine; Referring Provider Nurse Practitioner Family; Visit Provider Nurse Practitioner Family | DX: I48.0 Paroxysmal atrial fibrillation (principal) | CPT/HCPCS: 93225; 93226 ==

== ENCOUNTER 2023-04-27 03:04 | Observation (INO) | payer MEDICARE, SELFPAY ==
[2023-04-27] VITALS (9 sets, daily range): BP systolic 132–213; BP diastolic 66–100; PULSE 79–92; RESP 16–24; TEMP 36.1–37.8; O2SAT 86–100; BMI 29.4
--- NOTE | 2023-04-27 03:13 | EKG12_ITS ---
Test Reason : DYSRHYTHMIA Blood Pressure : / mmHG Vent. Rate : 086 BPM Atrial Rate : 086 BPM P-R Int : 168 ms QRS Dur : 082 ms QT Int : 360 ms P-R-T Axes : -06 002 049 degrees QTc Int : 430 ms Sinus rhythm with occasional Premature ventricular complexes Possible Anterolateral infarct (cited on or before 02-NOV-2022) Abnormal ECG Confirmed by BARBI COON MD ([id number]), tape editor WANDA MUSE ([id number]) on 04/30/2023 1:54:07 PM Referred By: LUISA Confirmed By:BARBI COON MD
--- NOTE | 2023-04-27 03:24 | EDS_ITS ---
HPI History of Present Illness Chief Complaint: Shortness of Breath Narrative Narrative: 77-year-old female presenting with shortness of breath. Patient states this started about 2 AM. She noted that her pulse ox was about 94. She states is usually 100%. She denies any chest pain. She does have slight anxiety. She states that everything is pretty much exacerbated with because she is at home alone and she gets worried. She does have history of CAD, paroxysmal A-fib. She is not on any blood thinners. She feels otherwise well. No fevers or chills. No cough. Patient denies history of CHF, COPD, asthma. [facility] Medical History (Updated 04/27/23 @ 04:[address] Yady Kumar MD) Arthritis Atherosclerotic heart disease of [place] coronary artery without angina pectoris Diastolic CHF Essential hypertension Fracture of metatarsal of left foot, closed History of carpal tunnel syndrome History of chronic back pain HLD (hyperlipidemia) Hypertension with intolerance to multiple antihypertensive drugs Ischemic cardiomyopathy Non-STEMI (non-ST elevated myocardial infarction) Persistent atrial fibrillation Presence of stent in coronary artery (~08/08/21) Vocal cord granuloma Home Medications conjugated estrogens 0.625 mg tablet (Premarin) 0.625 mg PO DAILY hormones 02/12/14 [History Last Taken 10/09/21] Gastrocrom 200 mg PO 4X/DAY IBS 01/27/19 [History Last Taken 10/09/21] hydrocortisone acetate 25 mg rectal suppository 25 mg [place] BID PRN hemorrhoids 08/20/21 [History Last Taken 10/09/21] budesonide 32 mcg/actuation nasal spray,aerosol 32 mcg intranasal ONCE PRN ALLERGIES 08/30/21 [History Last Taken Unknown] nitrofurantoin macrocrystal 50 mg capsule 50 mg PO DAILY infection 08/30/21 [History Last Taken 10/09/21] pot bicarb 344 mg-sod bicarb 1,050 mg-citric acid 1,000 mg efferv tab (Stephanie- [place] Gold) 1 tab PO Q4H PRN STOMACH 08/30/21 [History Last Taken Unknown] prednisolone acetate 0.12 % eye drops,suspension 1 drp ophthalmic (eye) Q OTHER DAY eye health 08/30/21 [History Last Taken 10/08/21] acetaminophen 500 mg tablet 1,000 mg PO BID pain 10/09/21 [History Last Taken 10/08/21] cetirizine 10 mg tablet (Zyrtec) 5 mg PO BID ALLERGIES 10/09/21 [History Last Taken 10/09/21] chlordiazepoxide HCl 5 mg capsule 5 mg PO .PRN PRN agitation #90 caps 10/02/22 [Rx Last Taken Unknown] olopatadine 0.2 % eye drops (Pataday Once Daily Relief) 1 drp ophthalmic (eye) DAILY PRN eye health 12/31/22 [History Last Taken Unknown] prednisone 5 mg tablet 4 mg PO DAILY FLARE 12/31/22 [History Last Taken Unknown] atorvastatin 20 mg tablet 20 mg PO QHS Cholesterol #90 tabs 01/05/23 [Rx Last Taken Unknown] furosemide 20 mg tablet 60 mg PO DAILY PRN edema 02/19/23 [History Last Taken Unknown] Diazide 1 tablet PO DAILY PRN edema 04/27/23 [History Last Taken Unknown] metoprolol tartrate 25 mg tablet 12.5 mg PO .QAM A-FIB 04/27/23 [History Last Taken Unknown] metoprolol tartrate 25 mg tablet 25 mg PO QHS A-FIB 04/27/23 [History Last Taken Unknown] Allergy/AdvReac Type Severity Reaction Status Date / Time aspirin Allergy Severe Tight in Verified 04/27/23 03:11 throat, Severe tinnitus, nosebleeds, dizzy. clopidogrel Allergy Intermediate Hives Verified 04/27/23 03:11 levofloxacin [From Levaquin] Allergy Intermediate RAPID HEART Verified 04/27/23 05:15 alprazolam [From Xanax] Allergy Unknown Unknown Verified 04/27/23 03:11 [place] And Derivatives Allergy Unknown Unknown Verified 04/27/23 03:11 mushroom Allergy Unknown Unknown Verified 04/27/23 03:11 paroxetine [From Paxil] Allergy Unknown Unknown Verified 04/27/23 03:11 peanut Allergy Unknown Unknown Verified 04/27/23 03:11 ticagrelor [From Brilinta] Allergy Unknown unknown Verified 04/27/23 03:11 tolmetin [From Tolectin] Allergy Unknown Unknown Verified 04/27/23 03:11 Yeast Allergy Unknown Unknown Verified 04/27/23 03:11 acetaminophen Allergy Other Verified 04/27/23 03:11 [From Darvocet-N] codeine Allergy Other Verified 04/27/23 03:11 fluconazole [From Diflucan] Allergy Rash Verified 04/27/23 03:11 lidocaine Allergy Other Verified 04/27/23 03:11 meperidine HCl [From Demerol] Allergy Other Verified 04/27/23 03:11 metronidazole [From Metrogel] Allergy Rash Verified 04/27/23 03:11 Opioids - Morphine Analogues Allergy Other Verified 04/27/23 03:11 oxycodone HCl [From Percodan] Allergy Other Verified 04/27/23 03:11 oxycodone terephthalate Allergy Other Verified 04/27/23 03:11 [From Percodan] Penicillins Allergy Rash Verified 04/27/23 03:11 propoxyphene napsylate Allergy Other Verified 04/27/23 03:11 [From Darvocet-N] Sulfa (Sulfonamide Allergy Rash Verified 04/27/23 03:11 Antibiotics) amiodarone AdvReac Severe Severe Verified 04/27/23 03:11 urinary retention Beef Containing Products AdvReac Severe Unknown Verified 04/27/23 03:11 carvedilol AdvReac Severe Very Verified 04/27/23 03:11 lightheaded, Dizziness, floating on ceiling feeling. amlodipine AdvReac Mild fatigue, Verified 04/27/23 03:11 swelling cheese AdvReac Mild Unknown Verified 04/27/23 03:11 egg AdvReac Unknown Unknown Verified 04/27/23 03:11 maltose AdvReac Unknown Unknown Verified 04/27/23 03:11 adhesive tape AdvReac Rash Verified 04/27/23 03:11 Cephalosporins AdvReac Shortness Verified 04/27/23 03:11 of breath cyclobenzaprine AdvReac NEEDS Verified 04/27/23 03:11 [From Flexeril] FOLLOW-UP epinephrine AdvReac NEEDS Verified 04/27/23 03:11 FOLLOW-UP estrogens, conjugated AdvReac NEEDS Verified 04/27/23 03:11 [From Premarin] FOLLOW-UP glycerin AdvReac Itching Verified 04/27/23 03:11 Iodinated Contrast Media AdvReac HALLUCINATI Verified 04/27/23 03:11 [iodine contrast] ONS lisinopril AdvReac Shortness Verified 04/27/23 03:11 of breath midazolam [From Versed] AdvReac NEEDS Verified 04/27/23 03:11 FOLLOW-UP ofloxacin [From Floxin] AdvReac NEEDS Verified 04/27/23 03:11 FOLLOW-UP phenol AdvReac Shortness Verified 04/27/23 03:11 of breath salicylates AdvReac Shortness Verified 04/27/23 03:11 of breath spider venom AdvReac Nausea Verified 04/27/23 03:11 spironolactone AdvReac GI upset Verified 04/27/23 03:11 and burning urination Family History Father Rheumatic heart disease Mother Cancer Other Allergies Asthma Surgical History H/O: hysterectomy History of D&C History of tonsillectomy History of tubal ligation Presence of coronary angioplasty implant and graft (~08/08/21) Social History household members: none Smoking Status: Never smoker alcohol intake: never substance use type: does not use diet: low salt and other what type of physical activity do you participate in: none seatbelt use: always do you feel safe at home: Yes additional social history: ROS ROS ED Constitutional Constitutional ED: Denies chills, fever(s) or sweats Eyes Eyes: Denies blurry vision or change in vision ENT ENT ED: Denies ear pain or sore throat Cardiovascular Cardiovascular: Denies chest pain, palpitations or racing heartbeat Respiratory/Chest Respiratory/Chest: Reports dyspnea; Denies sputum Gastrointestinal Gastrointestinal: Denies abdominal pain, constipation, diarrhea, nausea or vomiting Genitourinary Genitourinary ED: Denies dysuria, hematuria or urinary frequency Musculoskeletal Musculoskeletal: Denies arthralgias, myalgias or neck pain Integumentary Denies abscess, Abrasions or rash Neurologic Neurologic: Denies headache(s), paresthesias or weakness Psychiatric Psychiatric: Denies anxiety, depression, suicidal ideation or suicidal thoughts Endocrine Endocrinology: Denies polydipsia or polyuria EXAM Physical Exam Const Vital Signs: 04/27/23 03:05 04/27/23 03:29 04/27/23 03:36 Temperature 96.9 F L Temperature Source Temporal Pulse Rate 92 89 Respiratory Rate 20 H Blood Pressure 213/91 H 206/100 H Blood Pressure Mean 131 135 Pulse Ox 86 Oxygen Delivery Method Nasal Cannula Nasal Cannula Oxygen Flow Rate (L/min) 3.5 3.5 Positive well nourished General Appearance ED: NAD THERESA Reports moist mucous membranes atraumatic and trauma Eyes PERRL and EOMs intact bilaterally Neck no lymphadenopathy and supple Resp normal respiratory effort Resp Narrative: Coarse crackles noted on the right greater than left lung brown. Cardio regular rate and regular rhythm Neuro oriented x3 and CN's II-XII intact bilaterally Sensorium / Orientation: alert Motor Exam: strength 5/5 throughout Psych mental status grossly normal MDM MDM MDM Narrative Medical decision making narrative: Patient presenting with dyspnea and her oxygen is now in the 80s. She is 86% on arrival. She states she does not normally wear oxygen. She denies history of CHF, COPD, asthma. She is not having any chest pain. Patient has coarse crackles on exam on the right greater than left. Differential includes acute coronary syndrome, CHF, pneumonia, COVID, influenza, dehydration, electrolyte abnormalities. CBC was obtained to assess white blood cell count, hemoglobin, platelets. BMP to assess renal function electrolytes. High-sensitivity troponin and EKG to assess for ischemia and dysrhythmia. Chest x-ray to rule out pneumonia. D-dimer will be obtained to rule out PE. BNP to assess for CHF. CBC shows slight leukocytosis at 14.0. Hemoglobin stable 14.6. Creatinine 1.14. Electrolytes within normal limits. D-dimer age-adjusted is negative. BNP is 506.9 high-sensitivity troponin 101. Chest x-ray my interpretation looks like pneumonia on the right greater than left lung brown. There is also evidence of CHF with elevated BNP. Attempted to give the patient Levaquin however she declined stating that she is allergic to it. She is hypoxic she will need to be admitted. EKG on my interpretation shows a normal sinus rhythm at a ventricular rate of 86 bpm without sign of ischemic change. High- sensitivity troponin back at 101. BNP elevated over 500. I suspect she is in CHF. She was given a dose of Lasix. Impression: 1. CHF exacerbation 2. Elevated troponin 3. Hypoxic respiratory failure 4. Leukocytosis Lab Data Labs: Laboratory Results - last 24 hr 04/27/23 03:30 WBC 14.0 H RBC 4.65 Hgb 14.6 Hct 45.6 MCV 98.1 MCH 31.4 MCHC 32.0 RDW Std Deviation 46.0 H RDW Coeff of [place] 12.7 Plt Count TNP MPV 10.2 Immature Gran % (Auto) 0.600 Neut % (Auto) 69.1 Lymph % (Auto) 23.9 Bryan % (Auto) 5.4 Eos % (Auto) 0.6 Baso % (Auto) 0.4 Absolute Neuts (auto) 9.6 H Absolute Lymphs (auto) 3.33 Nucleated RBC % 0 Platelet Estimate ADEQUATE D-Dimer Quant (PE/DVT) 0.66 H* Sodium 137 Potassium 4.3 Chloride 105 Carbon Dioxide 25.0 Anion Gap 7 BUN 19 H Creatinine 1.14 H Estim Creat Clear Calc 41.69 Est GFR (MDRD) Af Amer 59 L Est GFR (MDRD) Non-Af 49 L BUN/Creatinine Ratio 16.7 Glucose 91 Calcium 8.9 Magnesium 1.8 Troponin I High Sens 101 H B-Natriuretic Peptide 506.9 H Radiography Diagnostic Testing: Clinical Impression(s) from Imaging Studies Chest X-Ray 04/27/23 03:32 IMPRESSION: Patchy right greater than left lower lung groundglass airspace disease, to include pneumonia. Recommend follow-up to resolution as neoplastic process is not excluded. Electronically Signed: Brett Atwood MD at 3:53 EDT , Discharge Plan Triage Chief Complaint: Shortness of Breath ED Provider: Fernie Benitez Dx/Rx/DC Orders Primary Care Provider: Jennie Turk
--- NOTE | 2023-04-27 03:32 | RAD_ITS ---
INDICATION: chest pain EXAMINATION/TECHNIQUE: X-RAY - XR Chest 1 View COMPARISON: 12/08/2022 chest radiograph. Findings: Single frontal view of the chest. LUNG PARENCHYMA: Patchy right greater than left lower lung groundglass airspace disease. Densely calcified left lateral midlung granulomas. PLEURA: No pleural effusion. No pneumothorax. HEART/[place]: Cardiomediastinal silhouette is unremarkable. BONES: Osseous structures are unremarkable for age. RAD/Chest 1 View (Portable) IMPRESSION: Patchy right greater than left lower lung groundglass airspace disease, to include pneumonia. Recommend follow-up to resolution as neoplastic process is not excluded. Electronically Signed: Brett Atwood MD at 3:53 EDT ,
[2023-04-27 03:38] LABS: Absolute Lymphocyte Count 3.33 X10^3/uL (0.83-4.51); Absolute Neutrophil Count 9.6 X10^3/uL (2.0-7.7); Basophil# 0.06 X10^3/uL; Basophil% 0.4 % (0-1); Eosinophil# 0.09 X10^3/uL; Eosinophils% 0.6 % (0-5); Hematocrit 45.6 % (37-47); Hemoglobin 14.6 g/dL (12.0-15.0); Lymphocyte # 3.33 X10^3/ul (0.83-4.51); Lymphocyte % 23.9 % (19-41); Mean Corpuscular Hgb 31.4 pg (27.0-32.0); Mean Corpuscular Volume 98.1 fL (81-99); Mean Platelet Vol. 10.2 fl (6.2-12.0); Monocyte# 0.76 X10^3/uL; Monocyte% 5.4 % (0-10); NRBC Flagged by Analyzer 0 % (0-5); Neutrophil # 9.64 X10^3/uL (2.7-7.7); Neutrophil % 69.1 % (47-70); POSITIVE COUNT YES; RBC Distribution Width CV 12.7 % (11.6-14.6); Red Blood Count 4.65 M/mm3 (4.2-5.4)
[2023-04-27 03:52] LABS: Differential Indicated SCAN CRITERIA MET
[2023-04-27 03:55] LABS: BNP,B-Type NATRIURETIC PEPTIDE 506.9 pg/mL (0-100)
[2023-04-27 04:05] LABS: Anion Gap 7 (5-15); BUN 19 mg/dL (7-18); BUN/Creat Ratio 16.7 RATIO (10-20); Calcium,Total 8.9 mg/dL (8.5-10.1); Chloride 105 mmol/L (98-107); Creatinine, Serum 1.14 mg/dL (0.55-1.02); EST Glomerular Filtration Rate 49 mL/min (>60); Est Glom Filt Rate - Afr Amer 59 mL/min (>60); Estimated Creatinine Clearance 41.69 ml/min; Glucose 91 mg/dL (74-106); Potassium 4.3 mmol/L (3.5-5.1); Sodium Level 137 mmol/L (136-145); Troponin-I HS (w/2H Reflex) 101 pg/mL (3.0-54.0)
[2023-04-27 04:16] LABS: D-Dimer Quantitative (DVT/PE) 0.66 FEU/ug/m (0.27-0.49)
[2023-04-27 04:39] LABS: Platelet Estimate ADEQUATE (ADEQ)
--- NOTE | 2023-04-27 04:40 | HP.PCM.HOS_ITS ---
HPI - General General Date of Admission: 04/27/23 Date of Service: 04/27/23 Chief Complaint: Dyspnea. HPI Narrative The patient is a 77 y/o F w/ PMHx: CAD s/p PCI, Ischemic cardiomyopathy, Obesity, CKD stage III unclear subtype, HTN, HLD, Allergic rhinitis, PAF, Diastolic CHF who presents to the [facility] ED on 04/27/23 with history of sudden onset shortness of breath starting at approximately 2 AM with pulse oximeter at that time 94% very anxious upon arrival noting that she becomes very worked up as she lives alone and she gets worried with no recent fevers or chills nor any recent cough prompting eventual ED evaluation. Work-up in the ED included T96.9, heart rate 92, BP initially 213/91 with most recent repeat 206/100, respiratory rate 20, 86% initially on 3.5 L nasal cannula, chest x-ray with patchy right greater than left lower lung groundglass airspace disease possibly secondary to pneumonia however follow-up resolution film appropriate for evaluation of neoplastic process, CBC with WC 14, hemoglobin 14.6, platelet 240 with left shift, D-dimer 0.66 which is normal for age adjustment, BMP with BUN/creatinine 19/1.14, troponin 101, BNP 506.9, rapid SARS COVID-negative. The ED patient administered dose IV Lasix. [facility] Medical History (Updated 04/27/23 @ 04:[address] Yady Kumar MD) Arthritis Atherosclerotic heart disease of [place] coronary artery without angina pectoris Diastolic CHF Essential hypertension Fracture of metatarsal of left foot, closed History of carpal tunnel syndrome History of chronic back pain HLD (hyperlipidemia) Hypertension with intolerance to multiple antihypertensive drugs Ischemic cardiomyopathy Non-STEMI (non-ST elevated myocardial infarction) Persistent atrial fibrillation Presence of stent in coronary artery (~08/08/21) Vocal cord granuloma Home Medications conjugated estrogens 0.625 mg tablet (Premarin) 0.625 mg PO DAILY hormones 02/12/14 [History Last Taken 10/09/21] Gastrocrom 200 mg PO 4X/DAY IBS 01/27/19 [History Last Taken 10/09/21] hydrocortisone acetate 25 mg rectal suppository 25 mg TN BID PRN hemorrhoids 08/20/21 [History Last Taken 10/09/21] budesonide 32 mcg/actuation nasal spray,aerosol 32 mcg intranasal ONCE PRN ALLERGIES 08/30/21 [History Last Taken Unknown] nitrofurantoin macrocrystal 50 mg capsule 50 mg PO DAILY infection 08/30/21 [History Last Taken 10/09/21] pot bicarb 344 mg-sod bicarb 1,050 mg-citric acid 1,000 mg efferv tab ([facility] [place] Gold) 1 tab PO Q4H PRN STOMACH 08/30/21 [History Last Taken Unknown] prednisolone acetate 0.12 % eye drops,suspension 1 drp ophthalmic (eye) Q OTHER DAY eye health 08/30/21 [History Last Taken 10/08/21] acetaminophen 500 mg tablet 1,000 mg PO BID pain 10/09/21 [History Last Taken 10/08/21] cetirizine 10 mg tablet (Zyrtec) 5 mg PO BID ALLERGIES 10/09/21 [History Last Taken 10/09/21] chlordiazepoxide HCl 5 mg capsule 5 mg PO .PRN PRN agitation #90 caps 10/02/22 [Rx Last Taken Unknown] olopatadine 0.2 % eye drops (Pataday Once Daily Relief) 1 drp ophthalmic (eye) DAILY PRN eye health 12/31/22 [History Last Taken Unknown] prednisone 5 mg tablet 4 mg PO DAILY FLARE 12/31/22 [History Last Taken Unknown] atorvastatin 20 mg tablet 20 mg PO QHS Cholesterol #90 tabs 01/05/23 [Rx Last Taken Unknown] furosemide 20 mg tablet 60 mg PO DAILY PRN edema 02/19/23 [History Last Taken Unknown] Diazide 1 tablet PO DAILY PRN edema 04/27/23 [History Last Taken Unknown] metoprolol tartrate 25 mg tablet 12.5 mg PO .QAM 04/27/23 [History Last Taken Unknown] Allergy/AdvReac Type Severity Reaction Status Date / Time aspirin Allergy Severe Tight in Verified 04/27/23 03:11 throat, Severe tinnitus, nosebleeds, dizzy. clopidogrel Allergy Intermediate Hives Verified 04/27/23 03:11 alprazolam [From Xanax] Allergy Unknown Unknown Verified 04/27/23 03:11 [place] [employer] Allergy Unknown Unknown Verified 04/27/23 03:11 mushroom Allergy Unknown Unknown Verified 04/27/23 03:11 paroxetine [From Paxil] Allergy Unknown Unknown Verified 04/27/23 03:11 peanut Allergy Unknown Unknown Verified 04/27/23 03:11 ticagrelor [From Brilinta] Allergy Unknown unknown Verified 04/27/23 03:11 tolmetin [From Tolectin] Allergy Unknown Unknown Verified 04/27/23 03:11 Yeast Allergy Unknown Unknown Verified 04/27/23 03:11 acetaminophen Allergy Other Verified 04/27/23 03:11 [From Darvocet-N] codeine Allergy Other Verified 04/27/23 03:11 fluconazole [From Diflucan] Allergy Rash Verified 04/27/23 03:11 lidocaine Allergy Other Verified 04/27/23 03:11 meperidine HCl [From Demerol] Allergy Other Verified 04/27/23 03:11 metronidazole [From Metrogel] Allergy Rash Verified 04/27/23 03:11 Opioids - Morphine Analogues Allergy Other Verified 04/27/23 03:11 oxycodone HCl [From Percodan] Allergy Other Verified 04/27/23 03:11 oxycodone terephthalate Allergy Other Verified 04/27/23 03:11 [From Percodan] Penicillins Allergy Rash Verified 04/27/23 03:11 propoxyphene napsylate Allergy Other Verified 04/27/23 03:11 [From Darvocet-N] Sulfa (Sulfonamide Allergy Rash Verified 04/27/23 03:11 Antibiotics) amiodarone AdvReac Severe Severe Verified 04/27/23 03:11 urinary retention Beef Containing Products AdvReac Severe Unknown Verified 04/27/23 03:11 carvedilol AdvReac Severe Very Verified 04/27/23 03:11 lightheaded, Dizziness, floating on ceiling feeling. amlodipine AdvReac Mild fatigue, Verified 04/27/23 03:11 swelling cheese AdvReac Mild Unknown Verified 04/27/23 03:11 egg AdvReac Unknown Unknown Verified 04/27/23 03:11 maltose AdvReac Unknown Unknown Verified 04/27/23 03:11 adhesive tape AdvReac Rash Verified 04/27/23 03:11 Cephalosporins AdvReac Shortness Verified 04/27/23 03:11 of breath cyclobenzaprine AdvReac NEEDS Verified 04/27/23 03:11 [From Flexeril] FOLLOW-UP epinephrine AdvReac NEEDS Verified 04/27/23 03:11 FOLLOW-UP estrogens, conjugated AdvReac NEEDS Verified 04/27/23 03:11 [From Premarin] FOLLOW-UP glycerin AdvReac Itching Verified 04/27/23 03:11 Iodinated Contrast Media AdvReac HALLUCINATI Verified 04/27/23 03:11 [iodine contrast] ONS lisinopril AdvReac Shortness Verified 04/27/23 03:11 of breath midazolam [From Versed] AdvReac NEEDS Verified 04/27/23 03:11 FOLLOW-UP ofloxacin [From Floxin] AdvReac NEEDS Verified 04/27/23 03:11 FOLLOW-UP phenol AdvReac Shortness Verified 04/27/23 03:11 of breath salicylates AdvReac Shortness Verified 04/27/23 03:11 of breath spider venom AdvReac Nausea Verified 04/27/23 03:11 spironolactone AdvReac GI upset Verified 04/27/23 03:11 and burning urination Family History Father Rheumatic heart disease Mother Cancer Other Allergies Asthma Surgical History H/O: hysterectomy History of D&C History of tonsillectomy History of tubal ligation Presence of coronary angioplasty implant and graft (~08/08/21) Social History household members: none Smoking Status: Never smoker alcohol intake: never substance use type: does not use diet: low salt and other what type of physical activity do you participate in: none seatbelt use: always do you feel safe at home: Yes additional social history: ROS ROS Narrative Admission Review of Systems: CONSTITUTIONAL: No weight loss, fever, chills, + weakness or fatigue. HEENT: Eyes: No visual loss, blurred vision, double vision or yellow sclerae. Ears, Nose, Throat: No hearing loss, sneezing, congestion, runny nose or sore throat. SKIN: + RLE erythema, improving per patient report. CARDIOVASCULAR: + Chronic edema. No chest pain, chest pressure or chest discomfort, palpitations, orthopnea, syncopal events. RESPIRATORY: + Shortness of breath, No cough or sputum, wheezing, hemoptysis. GASTROINTESTINAL: No anorexia, nausea, vomiting or diarrhea, abdominal pain, melena, BRBPR. GENITOURINARY: No dysuria, frequency, urgency or retention. NEUROLOGICAL: No headache, dizziness, syncope, paralysis, ataxia, numbness or tingling in the extremities, focal weakness, change in bowel or bladder control, seizure. MUSCULOSKELETAL: + muscle, back pain, joint pain or stiffness. HEMATOLOGIC: No anemia, bleeding or bruising. LYMPHATICS: No enlarged nodes. No history of splenectomy. PSYCHIATRIC: + history of depression or anxiety. ENDOCRINOLOGIC: No reports of sweating, cold or heat intolerance. No polyuria or polydipsia. ALLERGIES: + history of hives, rhinitis. Vital Signs Vital Signs Vital Signs: 04/27/23 03:05 04/27/23 03:29 04/27/23 03:36 Temperature 96.9 F L Temperature Source Temporal Pulse Rate 92 89 Respiratory Rate 20 H Blood Pressure 213/91 H 206/100 H Blood Pressure Mean 131 135 Pulse Ox 86 Oxygen Delivery Method Nasal Cannula Nasal Cannula Oxygen Flow Rate (L/min) 3.5 3.5 Weight Weight: 193 lb 9.054 oz Body Mass Index (BMI) 29.4 Physical Exam Narrative Physical Examination: General: Awake, alert, oriented x 3 and cooperative, seated upright in the ED bed, fatigued appearing. Skin: Normal color, normal turgor, no icterus, no cyanosis except chronic stasis skin changes BL LE and occasional healing stasis ulcer. HEENT: AT/NC, EOMI, PERRLA, MMM, no carotid bruits, no marked JVD noted. Lungs: Diminished, greater bases, mild rales bilateral bases, no rhonchi or wheezing. Heart: Regular rate and rhythm; no gallop, rub audible. Abdomen: Soft, obese, NTTP, ND, normal BS, no HSM. Extremities: No cyanosis, no clubbing, bilateral mild pitting peripheral lower extremity edema, see skin. Neurological: Patient awake, alert, oriented as noted, cognitive function intact; pupils equally reactive to light and accommodation, cranial nerves grossly normal, moving all 4 extremities, no focal deficits, strength moderately to severely global decrease secondary to acute presentation. Psychiatric: Affect appears fatigued, no acute evidence of depressive or anxiety feelings. Results Lab / Micro Data 04/27/23 03:30 04/27/23 03:30 Labs: Laboratory Results - last 24 hr 04/27/23 03:30: WBC 14.0 H, RBC 4.65, Hgb 14.6, Hct 45.6, MCV 98.1, MCH 31.4, MCHC 32.0, RDW Std Deviation 46.0 H, RDW Coeff of [place] 12.7, Plt Count TNP, MPV 10.2, Immature Gran % (Auto) 0.600, Neut % (Auto) 69.1, Lymph % (Auto) 23.9, Mo no % (Auto) 5.4, Eos % (Auto) 0.6, Baso % (Auto) 0.4, Absolute Neuts (auto) 9.6 H, Absolute Lymphs (auto) 3.33, Nucleated RBC % 0, Platelet Estimate ADEQUATE, D-Dimer Quant (PE/DVT) 0.66 H*, Sodium 137, Potassium 4.3, Chloride 105, Carbon Dioxide 25.0, Anion Gap 7, BUN 19 H, Creatinine 1.14 H, Estim Creat Clear Calc 41.69, Est GFR (MDRD) Af Amer 59 L, Est GFR (MDRD) Non-Af 49 L, BUN/Creatinine Ratio 16.7, Glucose 91, Calcium 8.9, Troponin I High Sens 101 H, B-Natriuretic Peptide 506.9 H Micro: Microbiology 04/27/23 03:33 Nasal Secretion SARS-CoV-2 & FLU Antigen (Rapid) - Final Radiology Impression Chest X-Ray 04/27/23 03:32 IMPRESSION: Patchy right greater than left lower lung groundglass airspace disease, to include pneumonia. Recommend follow-up to resolution as neoplastic process is not excluded. Electronically Signed: Brett Atwood MD at 3:53 EDT , Assessment & Plan Assessment/Plan (1) CHF exacerbation: PLAN: Plan The patient is a 77 y/o F w/ PMHx: CAD s/p PCI, Ischemic cardiomyopathy, Obesity, CKD stage III unclear subtype, HTN, HLD, Allergic rhinitis, PAF, Diastolic CHF who presents to the [facility] ED on 04/27/23 with history of sudden onset shortness of breath starting at approximately 2 AM with pulse oximeter at that time 94% very anxious upon arrival noting that she becomes very worked up as she lives alone and she gets worried with no recent fevers or chills nor any recent cough prompting eventual ED evaluation. #1. Acute Hypoxia secondary to Suspected Acute HFpEF exacerbation, low suspicion BL PNA as she does take chronic low dose steroids w/ recent burst for back pain the week prior with associated indeterminant cardiac enzymes, likely hypoxia related/demand: Will admit to PCU, maintain on cardiac telemetry, maintain on oxygen with wean as tolerated to room air, PRN albuterol, HOB, IS parameters w/ pending sputum cultures, full respiratory viral panel and urine antigens, procalcitonin requested, obtain cardiac enzyme series, obtain serial EKGs as needed, will pulse dose with IV lasix, plan repeat CXR in AM to assess for infiltrates, monitor I/Os, continue medical therapy, obtain TSH and magnesium level. Most recent ECHO noted 10/30/2022 with EF 60%, trivial MVI, inability to assess diastolic dysfunction thus will defer immediately repeat. If repeat CXR following diuresis or labs more consistent with PNA, will add abx therapy but per discussion with patient preference to avoid initially unless certain given notable allergy history. PT/OT/case management consulted for discharge planning. #2. PAF: We will continue patient home metoprolol although last cardiology note reported planned transition to cardizem but she notes this was never done and she has been initially been attempting to wean her BB with her PCP, not on any chronic anticoagulant therapy. #3. Chronic Kidney Disease Stage III, unclear subtype: Admission BUN/Cr 19/1.14, baseline renal function 1.0-1.2, repeat CMP in AM. #4. CAD, ischemic cardiomyopathy: Status post PCI, noted aspirin/Plavix allergy, prior was on prasugrel but d/c secondary to bleeding issues and cardiology following, will continue statin, metoprolol although last cardiology note reported planned transition to cardizem but she notes this was never done and she has been initially been attempting to wean her BB with her PCP, not on FARAZ inhibitor/ARB w/ allergy noted. 10/30/2022 echocardiogram with EF 60%, trivial MVI, inability to assess diastolic dysfunction. #5. Hypertension: Continue home regimen including metoprolol although last cardiology note reported planned transition to cardizem but she notes this was never done and she has been initially been attempting to wean her BB with her PCP, PRN hydralazine. #6. Allergic rhinitis: Continue patient home cetirizine regimen. #7. Hyperlipidemia: We will continue patient on statin therapy. #8. Obesity: Weight loss and lifestyle changes encouraged. #9. Anxiety and depression: Not on any chronic regimen per current list, will benefit from further evaluation and treatment outpatient. #10. Osteoarthritis: From current list patient on chronic low dose steroids wit h recent burst for back pain the week prior, likely the culpril for her current mild leukocytosis. #11. DVT prophylaxis: Lovenox. #12. CODE status: Patient MIQUEL is her son and living will is currently in place. Full Code status. Charges/Coding Visit Charges Inpatient E&M: 28919 Init Hosp L3
[2023-04-27] MEDS: Furosemide 40 MG/4 ML Vial IV ×2 (05:02→17:15)
[2023-04-27 05:29] LABS: Magnesium 1.8 mg/dL (1.6-2.6)
[2023-04-27 05:33] LABS: Reflex Troponin-HS? (from REC) Y
[2023-04-27] MEDS: Ondansetron 4 MG/2 ML Vial IV (07:06)
[2023-04-27 07:16] LABS: Absolute Lymphocyte Count 3.17 X10^3/uL (0.83-4.51); Absolute Neutrophil Count 21.5 X10^3/uL (2.0-7.7); Basophil# 0.12 X10^3/uL; Basophil% 0.5 % (0-1); Eosinophil# 0.07 X10^3/uL; Eosinophils% 0.3 % (0-5); Hematocrit 47.1 % (37-47); Lymphocyte # 3.17 X10^3/ul (0.83-4.51); Mean Corp Hgb Conc 31.8 g/dL (32-36); Mean Corpuscular Hgb 31.8 pg (27.0-32.0); Mean Platelet Vol. 10.2 fl (6.2-12.0); Monocyte# 1.46 X10^3/uL; Monocyte% 5.5 % (0-10); NRBC Flagged by Analyzer 0 % (0-5); Neutrophil # 21.51 X10^3/uL (2.7-7.7); Neutrophil % 81.1 % (47-70); POSITIVE DIFFERENTIAL YES; Platelet Count 321 K/mm3 (150-450); RBC Distribution Width CV 12.9 % (11.6-14.6); RBC Distribution Width SD 47.9 fl (35.1-43.9); Red Blood Count 4.71 M/mm3 (4.2-5.4); White Blood Count 26.5 K/mm3 (4.4-11.0)
[2023-04-27 07:21] LABS: Differential Indicated SCAN CRITERIA MET
[2023-04-27 07:25] LABS: Troponin-I HS 180 pg/mL (3.0-54.0)
[2023-04-27] MEDS: proCHLORPERazine 10 MG/2 ML Vial 5 MG IV (09:17)
[2023-04-27] MEDS: predniSONE 5 MG Tablet PO (09:26)
[2023-04-27] MEDS: Loratadine 10 MG Tablet 5 MG PO ×2 (09:26→23:28)
[2023-04-27] MEDS: Metoprolol Tartrate 25 MG Tablet 12.5 MG PO (09:28)
[2023-04-27] MEDS: Enoxaparin 40 MG/0.4 ML Syringe SC (09:28)
[2023-04-27] MEDS: Acetaminophen 325 MG Tablet 650 MG PO (09:36)
[2023-04-27 09:40] LABS: Troponin-I HS 217 pg/mL (3.0-54.0)
--- NOTE | 2023-04-27 10:50 | CASEMGMT ---
RN JASON Face to Face with patient for initial transition planning/care coordination assessment. RN CM introduced self and role at [facility]. Patient lying in bed, alert and oriented. Patient willing to participate in assessment and is able to answer all questions appropriately. Care providers, pharmacy, and demographics verified. Patient wishes to discharge home, denies need for home health at this time. Patient states he has no further needs or concerns at this time. CM to follow for discharge planning needs that may arise. PCP:Rosalee Specialists: Valeria water resources technical officer Preferred Pharmacy: [facility] Insurance: [employer] [facility] Prescription Benefit: yes Living Will/HPOA: Andrew Gutierres LNOK: son Living Arrangements: Patient lives alone in a 5 level split level home with 3-9 steps with railing. Patient is independent at home Transportation: friend DME/HHC: Patient efrain DME in the home. No previous HHC or SNF Disposition Plan: Patient to discharge home with family support and follow-up plans in place. Marlyn THOMPSON, RN, CM
[2023-04-27 11:09] LABS: Procalcitonin < 0.04 ng/mL (0.00-0.09)
[2023-04-27 11:24] LABS: Differential Comment SCANNED
[2023-04-27] MEDS: CROMOLYN SODIUM 20 MG/ML 200 MG PO ×3 (12:36→23:27)
[2023-04-27] MEDS: Estrogens,Conj. 0.625 MG Tablet PO (12:45)
[2023-04-27 14:13] LABS: Troponin-I HS 259 pg/mL (3.0-54.0)
[2023-04-27] MEDS: Atorvastatin Calcium 20 MG Tablet PO (23:27)
[2023-04-27] MEDS: Metoprolol Tartrate 25 MG Tablet PO (23:27)
[2023-04-28] VITALS (8 sets, daily range): BP systolic 114–149; BP diastolic 69–90; PULSE 69–89; RESP 16–18; TEMP 36.4–37.1; O2SAT 93–99; BMI 28.1
[2023-04-28 05:09] LABS: Absolute Lymphocyte Count 2.14 X10^3/uL (0.83-4.51); Absolute Neutrophil Count 9.7 X10^3/uL (2.0-7.7); Basophil# 0.04 X10^3/uL; Basophil% 0.3 % (0-1); Eosinophils% 0.8 % (0-5); Hematocrit 40.3 % (37-47); Lymphocyte # 2.14 X10^3/ul (0.83-4.51); Lymphocyte % 16.5 % (19-41); Mean Corp Hgb Conc 32.3 g/dL (32-36); Mean Corpuscular Hgb 31.4 pg (27.0-32.0); Mean Corpuscular Volume 97.3 fL (81-99); Mean Platelet Vol. 9.8 fl (6.2-12.0); Monocyte# 0.93 X10^3/uL; Monocyte% 7.2 % (0-10); NRBC Flagged by Analyzer 0 % (0-5); Neutrophil % 74.7 % (47-70); Platelet Count 273 K/mm3 (150-450); RBC Distribution Width SD 46.2 fl (35.1-43.9); Red Blood Count 4.14 M/mm3 (4.2-5.4)
[2023-04-28 05:40] LABS: Anion Gap 4 (5-15); BUN 21 mg/dL (7-18); BUN/Creat Ratio 16.4 RATIO (10-20); Calcium,Total 8.5 mg/dL (8.5-10.1); Chloride 100 mmol/L (98-107); Cholesterol 120 mg/dL (200); Creatinine, Serum 1.28 mg/dL (0.55-1.02); EST Glomerular Filtration Rate 43 mL/min (>60); Est Glom Filt Rate - Afr Amer 52 mL/min (>60); Estimated Creatinine Clearance 37.13 ml/min; Glucose 89 mg/dL (74-106); High Density Lipoprotein 79 mg/dL; Potassium 3.1 mmol/L (3.5-5.1); Sodium Level 137 mmol/L (136-145); Triglycerides 108 mg/dL; Very Low Density Lipoprotein 22 mg/dL (5-40)
[2023-04-28] MEDS: CROMOLYN SODIUM 20 MG/ML 200 MG PO ×2 (09:09→12:53)
[2023-04-28] MEDS: Loratadine 10 MG Tablet 5 MG PO (11:18)
[2023-04-28] MEDS: Furosemide 40 MG/4 ML Vial IV (11:18)
[2023-04-28] MEDS: Metoprolol Tartrate 25 MG Tablet 12.5 MG PO (11:19)
[2023-04-28] MEDS: Estrogens,Conj. 0.625 MG Tablet PO (11:19)
[2023-04-28] MEDS: Enoxaparin 40 MG/0.4 ML Syringe SC (11:19)
[2023-04-28] MEDS: predniSONE 5 MG Tablet PO (11:20)
--- NOTE | 2023-04-28 11:27 | DCINST_ITS ---
Discharge Instructions Diet Discharge Diet: Low fat / Low cholesterol Activity Discharge Activity: Return to Normal Activity Dressing / Incision Call your doctor if you observe: Fever of 101 or Higher, Shortness of breath, Dizziness, Fainting spells, Swelling in the ankles, Chest pain and Increased palpitations (irregular heartbeat) Follow Up Care Test Results: Test results from this visit will be discussed in further detail at your follow- up appointment, if applicable. Discharge Plan Admission Admit Date/Time: 04/27/23 04:42 Attending Provider: Kane Cruz Primary Care Provider: Jennie Turk Consulting Providers: Yady Kumar Discharge Orders/Prescriptions Prescriptions: Continued prednisolone acetate 0.12 % drops,suspension 1 drp ophthalmic (eye) Q OTHER DAY Rx Instructions: RT EYE ONLY olopatadine [Pataday Once Daily Relief] 0.2 % drops 1 drp ophthalmic (eye) DAILY PRN (Reason: eye health) [facility] Gold 344-1,050-1,000 mg tablet, effervescent 1 tab PO Q4H PRN (Reason: STOMACH) budesonide 32 mcg/actuation aerosol 32 mcg intranasal ONCE PRN (Reason: ALLERGIES) prednisone 5 mg tablet 4 mg PO DAILY Rx Instructions: 5 mg maintenance dose, 15 mg if having flare up Premarin 0.625 MG tablet 0.625 mg PO DAILY Gastrocrom 200 mg PO 4X/DAY nitrofurantoin macrocrystal 50 mg capsule 50 mg PO DAILY Patient Comments: Take 1 capsule by mouth once daily. May increase to 4 times daily for acute UTI for 5 days as needed then resume once daily. Rx Instructions: Take 1 capsule by mouth once daily. May increase to 4 times daily for acute UTI for 5 days as needed then resume once daily. cetirizine [Zyrtec] 10 mg Tablet 5 mg PO BID acetaminophen 500 mg Tablet 1,000 mg PO BID metoprolol tartrate 25 mg tablet 12.5 mg PO .QAM Diazide 1 tablet PO DAILY PRN (Reason: edema) metoprolol tartrate 25 mg tablet 25 mg PO QHS hydrocortisone acetate 25 mg suppository 25 mg DE BID PRN (Reason: hemorrhoids) chlordiazepoxide HCl 5 mg capsule 5 mg PO .PRN PRN (Reason: agitation) Qty: 90 3RF atorvastatin 20 mg tablet 20 mg PO QHS Qty: 90 3RF furosemide 20 mg tablet 60 mg PO DAILY PRN (Reason: edema) Referrals / Follow Up: Jennie Turk MD [Primary Care Provider] - Disposition Disposition (needs filled in before D/C Order can be placed): Home, Self Care
[2023-04-28] MEDS: Potassium Chloride Oral Tablet 20 MEQ 60 MEQ PO (11:44)
--- NOTE | 2023-04-28 11:53 | CASEMGMT ---
Patient has order for discharge. RN CM in to discuss needs at discharge. Patient denies needs at discharge. Patient had no further questions or concerns.
--- NOTE | 2023-04-28 14:11 | DS.PCM_ITS ---
Providers Date of Admission: 04/27/23 Primary Care Physician: Dr. Jennie Turk MD Reason For Visit: CHF, PNA, HYPOXIA Diagnosis Discharge Diagnosis (1) CHF exacerbation: Status: Chronic Code(s): I50.9 - Heart failure, unspecified Medications at Discharge Home Medications conjugated estrogens 0.625 mg tablet (Premarin) 0.625 mg PO DAILY hormones 02/12/14 Gastrocrom 200 mg PO 4X/DAY IBS 01/27/19 hydrocortisone acetate 25 mg rectal suppository 25 mg [place] BID PRN hemorrhoids 08/20/21 budesonide 32 mcg/actuation nasal spray,aerosol 32 mcg intranasal ONCE PRN ALLERGIES 08/30/21 nitrofurantoin macrocrystal 50 mg capsule 50 mg PO DAILY infection 08/30/21 pot bicarb 344 mg-sod bicarb 1,050 mg-citric acid 1,000 mg efferv tab ([place]phanie[place] [facility]) 1 tab PO Q4H PRN STOMACH 08/30/21 prednisolone acetate 0.12 % eye drops,suspension 1 drp ophthalmic (eye) Q OTHER DAY eye health 08/30/21 acetaminophen 500 mg tablet 1,000 mg PO BID pain 10/09/21 cetirizine 10 mg tablet (Zyrtec) 5 mg PO BID ALLERGIES 10/09/21 chlordiazepoxide HCl 5 mg capsule 5 mg PO .PRN PRN agitation #90 caps 10/02/22 olopatadine 0.2 % eye drops (Pataday Once Daily Relief) 1 drp ophthalmic (eye) DAILY PRN eye health 12/31/22 prednisone 5 mg tablet 4 mg PO DAILY FLARE 12/31/22 atorvastatin 20 mg tablet 20 mg PO QHS Cholesterol #90 tabs 01/05/23 furosemide 20 mg tablet 60 mg PO DAILY PRN edema 02/19/23 Diazide 1 tablet PO DAILY PRN edema 04/27/23 metoprolol tartrate 25 mg tablet 12.5 mg PO .QAM A-FIB 04/27/23 metoprolol tartrate 25 mg tablet 25 mg PO QHS A-FIB 04/27/23 Hospital Course Operations None Procedures None Summary of Care Provided Minutes Spent on Discharge: 45 Hospital Course: Per HPI: The patient is a 77 y/o F w/ PMHx: CAD s/p PCI, Ischemic cardiomyopathy, Obesity, CKD stage III unclear subtype, HTN, HLD, Allergic rhinitis, PAF, Diastolic CHF who presents to the [facility] ED on 04/27/23 with history of sudden onset shortness of breath starting at approximately 2 AM with pulse oximeter at that time 94% very anxious upon arrival noting that she becomes very worked up as she lives alone and she gets worried with no recent fevers or chills nor any recent cough prompting eventual ED evaluation. Work-up in the ED included T96.9, heart rate 92, BP initially 213/91 with most recent repeat 206/100, respiratory rate 20, 86% initially on 3.5 L nasal cannula, chest x-ray with patchy right greater than left lower lung groundglass airspace disease possibly secondary to pneumonia however follow-up resolution film appropriate for evaluation of neoplastic process, CBC with WC 14, hemoglobin 14.6, platelet 240 with left shift, D-dimer 0.66 which is normal for age adjustment, BMP with BUN/creatinine 19/1.14, troponin 101, BNP 506.9, rapid SARS COVID-negative. The ED patient administered dose IV Lasix. Hospital Course: 1. Acute hypoxia secondary to volume overload?77-year-old female presented to the hospital with shortness of breath she had an Echo in October which did not show any signs of heart failure, her EF was 60% with no diastolic dysfunction, however she does take Lasix as needed for swelling. I discussed with her at length the indications to take Lasix for shortness of breath and how to monitor her weight for any weight changes and taking extra Lasix if necessary. She is feeling much better today, denies any shortness of breath. She is able to lay flat and was on room air at rest. Ambulatory pulse ox did not demonstrate a need for home-going oxygen. It does not appear that she had pneumonia as she did not take any antibiotics and her white count improved. I discussed with her the plan for discharge today she expressed understanding of the risk benefits of going home and would like to go home today. She did improve much faster than anticipated with the aggressive diuresis. I recommend outpatient follow-up with her PCP in 3 to 5 days as well as cardiology as scheduled. 2. Coronary artery disease status post stent, paroxysmal A-fib, hypertension, hyperlipidemia, anxiety, depression are all chronic medical conditions which complicate her care. Her home medications were continued where appropriate Physical Exam Narrative General: Alert, Oriented x3, Cooperative, No apparent distress HEENT: Atraumatic, PERRLA, EOMI, Normocephalic Oral: Moist Mucosa Neck: Supple, No JVD Lungs: Diminished, Normal air movement, No rhonchi, No wheeze, No rales Cardiovascular: Regular rate, Regular Rhythm, Normal S1, Normal S2, No murmurs Abdomen: Soft, Non Tender, Non-Distended, No Hepato-splenomegaly Extremities: No edema, Capillary Refill Less than 3 Seconds Skin: No rashes, No breakdown Musculoskeletal: No Tenderness to Palpation of Joints or Extremities Neurological: Cranial nerves II-XII grossly intact, Motor Exam 5/5 strength throughout, Sensory exam intact to light touch and pain Psych/Mental Status: Normal Affect, Appropriate Weight / BMI Weight Weight: 185 lb 3.013 oz Body Mass Index (BMI) 28.1 ABG / Lab / Microbiology Data 04/28/23 04:41 04/28/23 04:41 Laboratory: Laboratory Results - last 24 hr 04/27/23 12:32: Troponin I High Sens 259 H* 04/28/23 04:41: WBC 13.0 H, RBC 4.14 L, Hgb 13.0, Hct 40.3, MCV 97.3, MCH 31.4, MCHC 32.3, RDW Std Deviation 46.2 H, RDW Coeff of [place] 13.0, Plt Count 273, MPV 9.8, Immature Gran % (Auto) 0.500, Neut % (Auto) 74.7 H, Lymph % (Auto) 16.5 L, Mckean % (Auto) 7.2, Eos % (Auto) 0.8, Baso % (Auto) 0.3, Absolute Neuts (auto) 9.7 H, Absolute Lymphs (auto) 2.14, Nucleated RBC % 0, Sodium 137, Potassium 3.1 L, Chloride 100, Carbon Dioxide 33.0 H, Anion Gap 4 L, BUN 21 H, Creatinine 1.28 H, Estim Creat Clear Calc 37.13, Est GFR (MDRD) Af Amer 52 L, Est GFR (MDRD) Non-Af 43 L, BUN/Creatinine Ratio 16.4, Glucose 89, Calcium 8.5, Triglycerides 108, Cholesterol 120, LDL Cholesterol 19, VLDL Cholesterol 22, HDL Cholesterol 79 Microbiology: Microbiology 04/27/23 07:20 Mucosa - Nasopharyngeal Respiratory Panel (PCR) - Final 04/27/23 05:50 Urine, Clean Catch Legionella Antigen - Final 04/27/23 05:50 Urine, Clean Catch Streptococcus pneumoniae Antigen (M - Final 04/27/23 03:33 Nasal Secretion SARS-CoV-2 & FLU Antigen (Rapid) - Final D/C Instructions Discharge Diet: Low fat / Low cholesterol Call your doctor if you observe: Fever of 101 or Higher, Shortness of breath, Dizziness, Fainting spells, Swelling in the ankles, Chest pain and Increased palpitations (irregular heartbeat) Meaningful Use Info Meaningful Use Diagnoses (Choose all that apply): None applicable Discharge Plan Admission Admit Date/Time: 04/27/23 04:42 Attending Provider: Kane Cruz Primary Care Provider: Jennie Turk Consulting Providers: Yady Kumar Discharge Orders/Prescriptions Prescriptions: Continued prednisolone acetate 0.12 % drops,suspension 1 drp ophthalmic (eye) Q OTHER DAY Rx Instructions: RT EYE ONLY olopatadine [Pataday Once Daily Relief] 0.2 % drops 1 drp ophthalmic (eye) DAILY PRN (Reason: eye health) [place] [facility] 344-1,050-1,000 mg tablet, effervescent 1 tab PO Q4H PRN (Reason: STOMACH) budesonide 32 mcg/actuation aerosol 32 mcg intranasal ONCE PRN (Reason: ALLERGIES) prednisone 5 mg tablet 4 mg PO DAILY Rx Instructions: 5 mg maintenance dose, 15 mg if having flare up Premarin 0.625 MG tablet 0.625 mg PO DAILY Gastrocrom 200 mg PO 4X/DAY nitrofurantoin macrocrystal 50 mg capsule 50 mg PO DAILY Patient Comments: Take 1 capsule by mouth once daily. May increase to 4 times daily for acute UTI for 5 days as needed then resume once daily. Rx Instructions: Take 1 capsule by mouth once daily. May increase to 4 times daily for acute UTI for 5 days as needed then resume once daily. cetirizine [Zyrtec] 10 mg Tablet 5 mg PO BID acetaminophen 500 mg Tablet 1,000 mg PO BID metoprolol tartrate 25 mg tablet 12.5 mg PO .QAM Diazide 1 tablet PO DAILY PRN (Reason: edema) metoprolol tartrate 25 mg tablet 25 mg PO QHS hydrocortisone acetate 25 mg suppository 25 mg [place] BID PRN (Reason: hemorrhoids) chlordiazepoxide HCl 5 mg capsule 5 mg PO .PRN PRN (Reason: agitation) Qty: 90 3RF atorvastatin 20 mg tablet 20 mg PO QHS Qty: 90 3RF furosemide 20 mg tablet 60 mg PO DAILY PRN (Reason: edema) Referrals / Follow Up: Bina Avery NP, [employer] [Non-Staff] - 05/07/23 1:00 pm Disposition Disposition (needs filled in before D/C Order can be placed): Home, Self Care Charges/Coding Visit Charges Inpatient E&M: 89840 Disch Hosp >30min
== END 2023-04-28 17:41 | disposition home or self-care (01) | DRG 291 ==
LOC: ED 03:44 → PCU 05:05
PROVIDERS: Admitting Provider Family Medicine; Emergency Provider Student in an Organized Health Care Education/Training Program; PCP Internal Medicine; Visit Provider Family Medicine
DX: I13.0 Hypertensive heart and chronic kidney disease with heart failure and stage 1 through stage 4 chronic kidney disease, or unspecified chronic kidney disease (principal); I50.31 Acute diastolic (congestive) heart failure; I48.0 Paroxysmal atrial fibrillation; N18.30 Chronic kidney disease, stage 3 unspecified; E66.9 Obesity, unspecified; F32.A Depression, unspecified; E78.5 Hyperlipidemia, unspecified; I25.5 Ischemic cardiomyopathy; I25.10 Atherosclerotic heart disease of native coronary artery without angina pectoris; J30.9 Allergic rhinitis, unspecified; F41.9 Anxiety disorder, unspecified; I25.2 Old myocardial infarction; R77.8 Other specified abnormalities of plasma proteins; R09.02 Hypoxemia; G89.29 Other chronic pain; Z68.29 Body mass index [BMI] 29.0-29.9, adult; Z79.51 Long term (current) use of inhaled steroids; Z79.52 Long term (current) use of systemic steroids; Z79.899 Other long term (current) drug therapy; Z95.5 Presence of coronary angioplasty implant and graft
CPT/HCPCS: 36415; 71045; 80048; 80061; 83735; 83880; 84145; 84484; 85025; 85379; 87428; 87449; 87633; 93005; 94668; 96372; 96374; 96375; 96376; 97161; 97165; 99221; 99285; A4216; G0378; J1940; J2405

== ENCOUNTER 2023-06-12 21:40 | Emergency (ER) | payer MEDICARE, SELFPAY ==
[2023-06-12 21:42] VITALS: PULSE 99; RESP 16; TEMP 36.2; O2SAT 100; BMI 27.2
--- NOTE | 2023-06-12 22:05 | ED.VIS.FEGU ---
HPI HPI - Female History of Present Illness Chief Complaint: Complaint Informant: patient Narrative Narrative: Patient with dysuria and lower abdominal discomfort that started 1.5 hours ago, she did a home dipstick that showed signs of urinary infection, she has had these before these are the typical symptoms that she has, and she is requesting treatment and prescription for ciprofloxacin for this since she takes Macrobid for prophylaxis and has had this happen many times before, treated successfully with ciprofloxacin in the past. She denies any fevers, chills, nausea, vomiting, back pain. PFSH PFS Medical History Arthritis Atherosclerotic heart disease of [place] coronary artery without angina pectoris Diastolic CHF Essential hypertension Fracture of metatarsal of left foot, closed History of carpal tunnel syndrome History of chronic back pain HLD (hyperlipidemia) Hypertension with intolerance to multiple antihypertensive drugs Ischemic cardiomyopathy Non-STEMI (non-ST elevated myocardial infarction) Persistent atrial fibrillation Presence of stent in coronary artery (~08/08/21) Vocal cord granuloma Home Medications conjugated estrogens 0.625 mg tablet (Premarin) 0.625 mg PO DAILY hormones 02/12/14 [History Last Taken 10/09/21] Gastrocrom 200 mg PO 4X/DAY IBS 01/27/19 [History Last Taken 10/09/21] hydrocortisone acetate 25 mg rectal suppository 25 mg [place] BID PRN hemorrhoids 08/20/21 [History Last Taken 10/09/21] budesonide 32 mcg/actuation nasal spray,aerosol 32 mcg intranasal ONCE PRN ALLERGIES 08/30/21 [History Last Taken Unknown] nitrofurantoin macrocrystal 50 mg capsule 50 mg PO DAILY infection 08/30/21 [History Last Taken 10/09/21] pot bicarb 344 mg-sod bicarb 1,050 mg-citric acid 1,000 mg efferv tab (Stephanie-[place] Gold) 1 tab PO Q4H PRN STOMACH 08/30/21 [History Last Taken Unknown] prednisolone acetate 0.12 % eye drops,suspension 1 drp ophthalmic (eye) Q OTHER DAY eye health 08/30/21 [History Last Taken 10/08/21] acetaminophen 500 mg tablet 1,000 mg PO BID pain 10/09/21 [History Last Taken 10/08/21] cetirizine 10 mg tablet (Zyrtec) 5 mg PO BID ALLERGIES 10/09/21 [History Last Taken 10/09/21] chlordiazepoxide HCl 5 mg capsule 5 mg PO .PRN PRN agitation #90 caps 10/02/22 [Rx Last Taken Unknown] olopatadine 0.2 % eye drops (Pataday Once Daily Relief) 1 drp ophthalmic (eye) DAILY PRN eye health 12/31/22 [History Last Taken Unknown] prednisone 5 mg tablet 5 mg PO DAILY FLARE 12/31/22 [History Last Taken Unknown] atorvastatin 20 mg tablet 20 mg PO QHS Cholesterol #90 tabs 01/05/23 [Rx Last Taken Unknown] furosemide 20 mg tablet 60 mg PO DAILY PRN edema 02/19/23 [History Last Taken Unknown] ciprofloxacin HCl 500 mg tablet 500 mg PO BID #10 TABLETS 06/12/23 [Rx Last Taken Unknown] metoprolol tartrate 25 mg tablet 12.5 mg (1/2 x 25 mg) PO .QAM A-FIB #45 tabs 06/12/23 [Rx Last Taken Unknown] metoprolol tartrate 25 mg tablet 18.5 mg PO QHS A-FIB 06/12/23 [History Last Taken Unknown] triamterene 37.5 mg-hydrochlorothiazide 25 mg capsule 1 cap PO DAILY PRN bp 06/12/23 [History Last Taken Unknown] Allergy/AdvReac Type Severity Reaction Status Date / Time aspirin Allergy Severe Tight in Verified 06/12/23 21:42 throat, Severe tinnitus, nosebleeds, dizzy. clopidogrel Allergy Intermediate Hives Verified 06/12/23 21:42 levofloxacin [From Levaquin] Allergy Intermediate RAPID HEART Verified 06/12/23 21:42 alprazolam [From Xanax] Allergy Unknown Unknown Verified 06/12/23 21:42 [place] And Derivatives Allergy Unknown Unknown Verified 06/12/23 21:42 mushroom Allergy Unknown Unknown Verified 06/12/23 21:42 paroxetine [From Paxil] Allergy Unknown Unknown Verified 06/12/23 21:42 peanut Allergy Unknown Unknown Verified 06/12/23 21:42 ticagrelor [From Brilinta] Allergy Unknown unknown Verified 06/12/23 21:42 tolmetin [From Tolectin] Allergy Unknown Unknown Verified 06/12/23 21:42 Yeast Allergy Unknown Unknown Verified 06/12/23 21:42 acetaminophen Allergy Other Verified 06/12/23 21:42 [From Darvocet-N] codeine Allergy Other Verified 06/12/23 21:42 fluconazole [From Diflucan] Allergy Rash Verified 06/12/23 21:42 lidocaine Allergy Other Verified 06/12/23 21:42 meperidine HCl [From Demerol] Allergy Other Verified 06/12/23 21:42 metronidazole [From Metrogel] Allergy Rash Verified 06/12/23 21:42 Opioids - Morphine Analogues Allergy Other Verified 06/12/23 21:42 oxycodone HCl [From Percodan] Allergy Other Verified 06/12/23 21:42 oxycodone terephthalate Allergy Other Verified 06/12/23 21:42 [From Percodan] Penicillins Allergy Rash Verified 06/12/23 21:42 propoxyphene napsylate Allergy Other Verified 06/12/23 21:42 [From Darvocet-N] Sulfa (Sulfonamide Allergy Rash Verified 06/12/23 21:42 Antibiotics) amiodarone AdvReac Severe Severe Verified 06/12/23 21:42 urinary retention Beef Containing Products AdvReac Severe Unknown Verified 06/12/23 21:42 carvedilol AdvReac Severe Very Verified 06/12/23 21:42 lightheaded, Dizziness, floating on ceiling feeling. amlodipine AdvReac Mild fatigue, Verified 06/12/23 21:42 swelling cheese AdvReac Mild Unknown Verified 06/12/23 21:42 egg AdvReac Unknown Unknown Verified 06/12/23 21:42 maltose AdvReac Unknown Unknown Verified 06/12/23 21:42 adhesive tape AdvReac Rash Verified 06/12/23 21:42 Cephalosporins AdvReac Shortness Verified 06/12/23 21:42 of breath cyclobenzaprine AdvReac NEEDS Verified 06/12/23 21:42 [From Flexeril] FOLLOW-UP epinephrine AdvReac NEEDS Verified 06/12/23 21:42 FOLLOW-UP estrogens, conjugated AdvReac NEEDS Verified 06/12/23 21:42 [From Premarin] FOLLOW-UP glycerin AdvReac Itching Verified 06/12/23 21:42 Iodinated Contrast Media AdvReac HALLUCINATI Verified 06/12/23 21:42 [iodine contrast] ONS lisinopril AdvReac Shortness Verified 06/12/23 21:42 of breath midazolam [From Versed] AdvReac NEEDS Verified 06/12/23 21:42 FOLLOW-UP ofloxacin [From Floxin] AdvReac NEEDS Verified 06/12/23 21:42 FOLLOW-UP phenol AdvReac Shortness Verified 06/12/23 21:42 of breath salicylates AdvReac Shortness Verified 06/12/23 21:42 of breath spider venom AdvReac Nausea Verified 06/12/23 21:42 spironolactone AdvReac GI upset Verified 06/12/23 21:42 and burning urination Family History Father Rheumatic heart disease Mother Cancer Other Allergies Asthma Surgical History H/O: hysterectomy History of D&C History of tonsillectomy History of tubal ligation Presence of coronary angioplasty implant and graft (~08/08/21) Social History household members: none Smoking Status: Never smoker alcohol intake: never substance use type: does not use diet: low salt and other what type of physical activity do you participate in: none seatbelt use: always do you feel safe at home: Yes additional social history: ROS ROS ED Constitutional Constitutional ED: Denies chills or fever(s) Eyes Eyes: Denies change in vision or diplopia ENT ENT ED: Denies rhinorrhea or sore throat Cardiovascular Cardiovascular: Denies chest pain or palpitations Respiratory/Chest Respiratory/Chest: Denies cough or dyspnea Gastrointestinal Gastrointestinal: Denies abdominal pain, diarrhea, nausea or vomiting Genitourinary Genitourinary ED: Reports dysuria; Denies hematuria or urinary frequency Musculoskeletal Musculoskeletal: Denies back pain or neck pain Integumentary Denies abscess or rash Neurologic Neurologic: Denies headache(s), paresthesias or weakness Psychiatric Psychiatric: Denies anxiety or suicidal thoughts EXAM Physical Exam Const Vital Signs: 06/12/23 21:42 Temperature 97.1 F L Temperature Source Temporal Pulse Rate 99 Respiratory Rate 16 Pulse Ox 100 Positive well nourished and well developed General Appearance ED: well developed and NAD HEENT Reports moist mucous membranes normocephalic and atraumatic Eyes PERRL and EOMs intact bilaterally Neck full ROM and supple Resp normal respiratory effort GI non-tender and non-distended Auscultation: normoactive bowel sounds Palpation: soft Back/Spine no CVA tenderness General Back: other FROM Extremity normal to inspection General Extremety ED: Negative for edema, pulses abnormal or tenderness General Extremity: Negative for edema or pulses abnormal Neuro oriented x3, CN's II-XII intact bilaterally and no sensory deficits noted Sensorium / Orientation: awake and alert Motor Exam: strength 5/5 throughout Skin no rashes or lesions noted and no wounds MDM MDM MDM Narrative Medical decision making narrative: Urinalysis negative for nitrite, but positive for LE and mild pyuria, will send for culture, given patient's history and symptoms and tolerating Cipro in the past, she understands this is not first-line and there is a higher rate of resistance to E. coli with regards to ciprofloxacin, but it has worked in the past she has lots of medication reactions and tolerates that 1 some okay prescribing a 5-day course. We will send for culture as well given her history. Lab Data Attestation: I reviewed the patient's lab results. Labs: Laboratory Results - last 24 hr 06/12/23 22:00 Urine Color Yellow Urine Clarity Clear Urine pH 6.0 Ur Specific [place] 1.015 Urine Protein 30 H Urine Glucose (UA) Normal Urine Ketones Negative Urine Occult Blood 25 H Urine Nitrite Negative Urine Bilirubin Negative Urine Urobilinogen Normal Ur Leukocyte Esterase 100 H Urine RBC 0 SEEN Urine WBC 5-10 SEEN Ur Squamous Epith Cells 0-5 SEEN Urine Bacteria RARE Urine Mucus 0 SEEN Discharge Plan Triage Chief Complaint: Complaint ED Provider: Raúl Navarrete Dx/Rx/DC Orders Clinical Impression: Acute cystitis without hematuria Prescriptions: New ciprofloxacin HCl [ciprofloxacin HCl] 500 mg tablet 500 mg PO BID Qty: 10 0RF No Action prednisolone acetate 0.12 % drops,suspension 1 drp ophthalmic (eye) Q OTHER DAY Rx Instructions: RT EYE ONLY olopatadine [Pataday Once Daily Relief] 0.2 % drops 1 drp ophthalmic (eye) DAILY PRN (Reason: eye health) [facility] [facility] 344-1,050-1,000 mg tablet, effervescent 1 tab PO Q4H PRN (Reason: STOMACH) budesonide 32 mcg/actuation aerosol 32 mcg intranasal ONCE PRN (Reason: ALLERGIES) prednisone 5 mg tablet 5 mg PO DAILY Rx Instructions: 5 mg maintenance dose, 15 mg if having flare up Premarin 0.625 MG tablet 0.625 mg PO DAILY Gastrocrom 200 mg PO 4X/DAY nitrofurantoin macrocrystal 50 mg capsule 50 mg PO DAILY Patient Comments: Take 1 capsule by mouth once daily. May increase to 4 times daily for acute UTI for 5 days as needed then resume once daily. Rx Instructions: Take 1 capsule by mouth once daily. May increase to 4 times daily for acute UTI for 5 days as needed then resume once daily. cetirizine [Zyrtec] 10 mg Tablet 5 mg PO BID acetaminophen 500 mg Tablet 1,000 mg PO BID triamterene-hydrochlorothiazid 37.5-25 mg capsule 1 cap PO DAILY PRN (Reason: bp) metoprolol tartrate 25 mg tablet 18.5 mg PO QHS hydrocortisone acetate 25 mg suppository 25 mg [place] BID PRN (Reason: hemorrhoids) chlordiazepoxide HCl 5 mg capsule 5 mg PO .PRN PRN (Reason: agitation) Qty: 90 3RF atorvastatin 20 mg tablet 20 mg PO QHS Qty: 90 3RF furosemide 20 mg tablet 60 mg PO DAILY PRN (Reason: edema) metoprolol tartrate 25 mg tablet 12.5 mg PO .QAM Qty: 45 3RF Primary Care Provider: Jennie Turk Referrals: Jennie Turk MD [Primary Care Provider] - 3-5 Days if not improving Activity Restrictions/Additional Instructions: Urine culture is sent and should take couple days to come back, if it becomes apparent that your infection is resistant to the antibiotic that was prescribed to you, you should get a phone call from us indicating such. Disposition Disposition: Home, Self Care
[2023-06-12 22:09] LABS: Mucous, Urine 0 SEEN /hpf (<or=2+); Red Blood Cells-Urine 0 SEEN /hpf (0-5)
[2023-06-12 22:10] LABS: Color, Urine Yellow (Yellow); Glucose, Dipstick Normal (Normal); Ketone-Dipstick Negative (Negative); Leukocyte Esterase-Dipstick 100 /ul (Negative); Nitrite-Dipstick Negative (Negative); Occult Blood-Urine 25 /ul (Negative); Protein-Dipstick 30 mg/dl (Negative); Specific Gravity, Urine 1.015 (1.002-1.030); Urine Bilirubin Dipstick Negative (Negative); Urine Clarity Clear (Clear); Urine Urobilinogen Normal (Normal)
[2023-06-12 22:15] LABS: Squamous Epithelial Cells - UA 0-5 SEEN /hpf (5-10); White Blood Cells 5-10 SEEN /hpf (0-5)
[2023-06-12 22:16] LABS: Bacteria RARE /hpf (None Seen)
== END 2023-06-12 22:34 | disposition home or self-care (01) ==
LOC: ED 22:15
PROVIDERS: Emergency Provider Emergency Medicine; PCP Internal Medicine; Visit Provider Emergency Medicine
DX: N30.00 Acute cystitis without hematuria (principal); I11.0 Hypertensive heart disease with heart failure; I50.32 Chronic diastolic (congestive) heart failure; I25.5 Ischemic cardiomyopathy; M54.9 Dorsalgia, unspecified; E78.5 Hyperlipidemia, unspecified; I25.10 Atherosclerotic heart disease of native coronary artery without angina pectoris; Z79.899 Other long term (current) drug therapy
CPT/HCPCS: 81001; 87077; 87086; 87088; 87186; 99282

== ENCOUNTER → 2023-12-01 | Outpatient (CLI) | payer MEDICARE, SELFPAY ==
--- NOTE | 2023-12-01 14:57 | NEURO_ITS ---
NCS and/or EMG Patient Report Ordering Doctor: Jennie Turk DATE OF SERVICE: 12/01/23 Clinical Summary: This EMG/NCS was performed to evaluate for Nerve Conduction Studies Summary: Nerve conduction studies were normal. Needle Examination Summary: Needle examination was normal. There was a higher proportion of motor unit action potentials with reduced recruitment, increased amplitude, increased duration, and polyphasia in the Impression: There is electrodiagnostic evidence of the following -
--- NOTE | 2023-12-01 14:57 | NEURO ---
NCS and/or EMG Patient Report Ordering Doctor: Jennie Turk DATE OF SERVICE: 12/01/23 Clinical Summary: 78 year old female with symptoms of left hand numbness, tingling, pain, and weakness. Nerve Conduction Studies Summary: The left median-D2 SNAP was absent. The left median-valdes response was absent. The left ulnar-D5 SNAP distal latency was prolonged. The left median-APB CMAP distal latency was prolonged with reduced amplitude. Needle Examination Summary: Needle examination of select muscles of the left upper extremity demonstrated increased insertional activity and spontaneous activity (positive sharp waves and fibrillation potentials) in the left abductor pollicis brevis muscle. was normal. There was a higher proportion of motor unit action potentials with reduced recruitment, reduced amplitude, increased duration, and polyphasia in the left abductor pollicis brevis muscle. 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 Multi Select Codes Neurology Neurology Interp Codes: 19215-67 Musc test done w/n test comp (interp) (1) and 17822-23 Nrv cndj test 7-8 studies (interp)
== END | disposition home or self-care (01) ==
LOC: PSN 13:50
PROVIDERS: PCP Internal Medicine; Visit Provider Internal Medicine
DX: G56.02 Carpal tunnel syndrome, left upper limb (principal)
CPT/HCPCS: 95886; 95910

== ENCOUNTER 2024-11-09 20:03 | Emergency (ER) | payer MEDICARE, SELFPAY ==
[2024-11-09 20:06] VITALS: BP 158/104; PULSE 94; RESP 18; TEMP 36.6; O2SAT 99; BMI 28.1
--- NOTE | 2024-11-09 22:10 | EX.ED.DYSGE1 ---
HPI History of Present Illness Chief Complaint: Complaint Informant: patient Onset/Context/Timing Onset: Today Context: Gradual Onset Timing: Continuous Quality: Decreased urine output Worsened by: Nothing Relieved by: Nothing Narrative Narrative: Patient presents with decreased urine output that began today. Patient states she normally takes Dyazide but did not take that today. Patient states she did not want to take it because she had to go out and do things today. Patient denies any chest pain or shortness of breath. Patient denies any swelling. Patient denies any fevers or chills. Patient states she called the nurse hotline and was told to come to the emergency department. [facility] Medical History Diastolic CHF Hypertension with intolerance to multiple antihypertensive drugs Persistent atrial fibrillation HLD (hyperlipidemia) Vocal cord granuloma Ischemic cardiomyopathy History of carpal tunnel syndrome History of chronic back pain Essential hypertension Presence of stent in coronary artery (~08/08/21) Atherosclerotic heart disease of [place] coronary artery without angina pectoris Non-STEMI (non-ST elevated myocardial infarction) Fracture of metatarsal of left foot, closed Arthritis Home Medications ?Medication ?Instructions ?Recorded ?Last Taken ?Type conjugated estrogens 0.625 mg 0.625 mg PO DAILY hormones 02/12/14 10/09/21 History tablet (Premarin) hydrocortisone acetate 25 mg 25 mg [place] BID PRN hemorrhoids 08/20/21 10/09/21 History rectal suppository budesonide 32 mcg/actuation nasal 32 mcg intranasal ONCE PRN 08/30/21 Unknown History spray,aerosol ALLERGIES pot bicarb 344 mg-sod bicarb 1,050 1 tab PO Q4H PRN STOMACH 08/30/21 Unknown History mg-citric acid 1,000 mg efferv tab (Stephanie-[place] Gold) cetirizine 10 mg tablet (Zyrtec) 5 mg PO BID ALLERGIES 10/09/21 10/09/21 History chlordiazepoxide HCl 5 mg capsule 5 mg PO .PRN PRN agitation #90 caps 10/02/22 Unknown Rx olopatadine 0.2 % eye drops 1 drp ophthalmic (eye) DAILY PRN 12/31/22 Unknown History (Pataday Once Daily Relief) eye health prednisone 5 mg tablet 5 mg PO DAILY FLARE 12/31/22 Unknown History acetaminophen 500 mg tablet 1,000 mg PO BID PRN pain 07/27/23 Unknown History cromolyn 100 mg/5 mL oral 200 mg PO 4X/DAY 07/27/23 Unknown History concentrate (Gastrocrom) furosemide 20 mg tablet 40 mg PO DAILY PRN edema 07/27/23 Unknown History prednisolone acetate 0.12 % eye 1 drp ophthalmic (eye) MOWEFR eye 07/27/23 Unknown History drops,suspension health prednisone 1 mg tablet 1 mg PO DAILY PRN as directed for 07/27/23 Unknown History flares and tapers prednisone 10 mg tablet 10 mg PO DIRECTED PRN as 07/27/23 Unknown History directed for flares and tapers triamterene 37.5 1 cap PO DAILY bp 07/27/23 Unknown History mg-hydrochlorothiazide 25 mg capsule nitrofurantoin macrocrystal 50 mg 50 mg PO DAILY PRN infection 12/21/23 Unknown History capsule potassium chloride 20 mEq 20 meq PO DAILY 12/21/23 Unknown History tablet,extended release atorvastatin 20 mg tablet 20 mg PO QHS Cholesterol #90 tabs 06/20/24 Unknown Rx ciprofloxacin HCl 250 mg tablet 250 mg PO BID 06/20/24 Unknown History Allergy/AdvReac Type Severity Reaction Status Date / Time aspirin Allergy Severe Tight in Verified 11/09/24 20:09 throat, Severe tinnitus, nosebleeds, dizzy. clopidogrel Allergy Intermediate Hives Verified 11/09/24 20:09 levofloxacin (From Levaquin) Allergy Intermediate RAPID HEART Verified 11/09/24 20:09 alprazolam (From Xanax) Allergy Unknown Unknown Verified 11/09/24 20:09 [place] And Derivatives Allergy Unknown Unknown Verified 11/09/24 20:09 mushroom Allergy Unknown Unknown Verified 11/09/24 20:09 paroxetine (From Paxil) Allergy Unknown Unknown Verified 11/09/24 20:09 peanut Allergy Unknown Unknown Verified 11/09/24 20:09 ticagrelor (From Brilinta) Allergy Unknown unknown Verified 11/09/24 20:09 tolmetin (From Tolectin) Allergy Unknown Unknown Verified 11/09/24 20:09 Yeast Allergy Unknown Unknown Verified 11/09/24 20:09 acetaminophen (From Allergy Other Verified 11/09/24 20:09 Darvocet-N) codeine Allergy Other Verified 11/09/24 20:09 fluconazole (From Diflucan) Allergy Rash Verified 11/09/24 20:09 lidocaine Allergy Other Verified 11/09/24 20:09 meperidine HCl (From Demerol) Allergy Other Verified 11/09/24 20:09 metronidazole (From Metrogel) Allergy Rash Verified 11/09/24 20:09 Opioids - Morphine Analogues Allergy Other Verified 11/09/24 20:09 oxycodone HCl (From Percodan) Allergy Other Verified 11/09/24 20:09 oxycodone terephthalate Allergy Other Verified 11/09/24 20:09 (From Percodan) Penicillins Allergy Rash Verified 11/09/24 20:09 propoxyphene napsylate (From Allergy Other Verified 11/09/24 20:09 Darvocet-N) Sulfa (Sulfonamide Allergy Rash Verified 11/09/24 20:09 Antibiotics) amiodarone AdvReac Severe Severe Verified 11/09/24 20:09 urinary retention Beef Containing Products AdvReac Severe Unknown Verified 11/09/24 20:09 carvedilol AdvReac Severe Very Verified 11/09/24 20:09 lightheaded, Dizziness, floating on ceiling feeling. amlodipine AdvReac Mild fatigue, Verified 11/09/24 20:09 swelling cheese AdvReac Mild Unknown Verified 11/09/24 20:09 egg AdvReac Unknown Unknown Verified 11/09/24 20:09 maltose AdvReac Unknown Unknown Verified 11/09/24 20:09 adhesive tape AdvReac Rash Verified 11/09/24 20:09 Cephalosporins AdvReac Shortness Verified 11/09/24 20:09 of breath cyclobenzaprine (From AdvReac NEEDS Verified 11/09/24 20:09 Flexeril) FOLLOW-UP epinephrine AdvReac NEEDS Verified 11/09/24 20:09 FOLLOW-UP estrogens, conjugated (From AdvReac NEEDS Verified 11/09/24 20:09 Premarin) FOLLOW-UP glycerin AdvReac Itching Verified 11/09/24 20:09 Iodinated Contrast Media AdvReac HALLUCINATI Verified 11/09/24 20:09 (iodine contrast) ONS lisinopril AdvReac Shortness Verified 11/09/24 20:09 of breath midazolam (From Versed) AdvReac NEEDS Verified 11/09/24 20:09 FOLLOW-UP ofloxacin (From Floxin) AdvReac NEEDS Verified 11/09/24 20:09 FOLLOW-UP phenol AdvReac Shortness Verified 11/09/24 20:09 of breath salicylates AdvReac Shortness Verified 11/09/24 20:09 of breath spider venom AdvReac Nausea Verified 11/09/24 20:09 spironolactone AdvReac GI upset Verified 11/09/24 20:09 and burning urination Family History Father Rheumatic heart disease Mother Cancer Other Allergies Asthma Surgical History History of D&C History of tonsillectomy History of tubal ligation Presence of coronary angioplasty implant and graft (~08/08/21) H/O: hysterectomy Social History household members: none Smoking Status: Never smoker alcohol intake: never substance use type: does not use diet: low salt and other what type of physical activity do you participate in: none seatbelt use: always do you feel safe at home: Yes additional social history: ROS ROS ED Constitutional Constitutional ED: Denies chills or fever(s) Eyes Eyes: Denies blurry vision or change in vision ENT ENT ED: Denies rhinorrhea or sore throat Cardiovascular Cardiovascular: Denies chest pain or palpitations Respiratory/Chest Respiratory/Chest: Denies cough or dyspnea Gastrointestinal Gastrointestinal: Denies nausea or vomiting Genitourinary Genitourinary ED: Denies dysuria or hematuria Musculoskeletal Musculoskeletal: Denies back pain or neck pain Integumentary Denies abscess or rash Neurologic Neurologic: Denies headache(s) or weakness Allergic/Immunologic Allergic/Immunologic ED: Denies mouth swelling or urticaria EXAM Physical Exam Const Vital Signs: 11/09/24 20:06 11/09/24 23:03 Temperature 97.9 F Temperature Source Temporal Pulse Rate 94 83 Respiratory Rate 18 18 Blood Pressure 158/104 H 155/90 H Blood Pressure Mean 122 111 Pulse Ox 99 99 Oxygen Delivery Method Room Air Room Air Positive well nourished and well developed General Appearance ED: well developed and NAD HEENT Negative for trauma or tenderness Neck supple and no JVD Resp normal respiratory effort and clear to auscultation bilaterally Cardio regular rate and regular rhythm GI non-tender and non-distended Palpation: soft Extremity General Extremety ED: Negative for edema or tenderness General Extremity: Negative for edema Neuro oriented x3, CN's II-XII intact bilaterally and no sensory deficits noted Sensorium / Orientation: alert Motor Exam: strength 5/5 throughout Psych mental status grossly normal MDM MDM MDM Narrative Medical decision making narrative: Differential diagnosis includes dehydration, acute kidney injury, urinary tract infection, and electrolyte abnormality. CBC will be obtained to assess for leukocytosis and anemia. Basic metabolic profile will be obtained to assess for electrolyte abnormality and renal function. Urinalysis will be obtained to assess for urinary tract infection and hematuria. Lab Data Attestation: I reviewed the patient's lab results. Lab results narrative: CBC was reviewed. There is a mild leukocytosis of 13.2. This is consistent with prior results. The remainder is within normal limits. Basic metabolic profile was reviewed. Sodium was slightly low at 124 and chloride was slightly low at 90. Anion gap was normal. The remainder is within normal limits. Urinalysis was reviewed. There is no evidence of urinary tract infection. Labs: Laboratory Results - last 24 hr 11/09/24 11/09/24 22:32 23:00 WBC 13.2 H RBC 4.18 L Hgb 13.5 Hct 37.9 MCV 90.7 MCH 32.3 H MCHC 35.6 RDW Std Deviation 42.9 RDW Coeff of [place] 12.9 Plt Count 309 MPV 8.5 Immature Gran % (Auto) 0.400 Neut % (Auto) 76.5 H Lymph % (Auto) 15.4 L [place] % (Auto) 6.5 Eos % (Auto) 0.7 Baso % (Auto) 0.5 Absolute Neuts (auto) 10.1 H Absolute Lymphs (auto) 2.04 Nucleated RBC % 0 Sodium 124 L Potassium 3.5 Chloride 90 L Carbon Dioxide 20.9 L Anion Gap 14 BUN 12 Creatinine 0.83 Estim Creat Clear Calc 62.39 Est GFR (MDRD) Non-Af 72 BUN/Creatinine Ratio 14.9 Glucose 100 H Calcium 8.1 Urine Color Yellow Urine Clarity Clear Urine pH 6.0 Ur Specific [place] 1.015 Urine Protein 15 H Urine Glucose (UA) Normal Urine Ketones Negative Urine Occult Blood 25 H Urine Nitrite Negative Urine Bilirubin Negative Urine Urobilinogen Normal Ur Leukocyte Esterase Negative Treatment and Re-Evaluation :: Bladder scan was obtained. There is 17 cc of urine in the bladder. Patient was advised of her findings. Patient was instructed to drink fluids. Patient was instructed to continue her medications as prescribed. Patient was instructed to follow-up with her primary care physician in 5 to 7 days. Patient was instructed to return if worse in any way. Patient understood and was agreeable with the plan. All questions were answered. Discharge Plan Triage Chief Complaint: Complaint ED Provider: Flynn Velazquez Dx/Rx/DC Orders Clinical Impression: Decreased urine output, Essential hypertension Prescriptions: No Action olopatadine [Pataday Once Daily Relief] 0.2 % drops 1 drp ophthalmic (eye) DAILY PRN (Reason: eye health) prednisolone acetate 0.12 % drops,suspension 1 drp ophthalmic (eye) MOWEFR Rx Instructions: RT EYE ONLY Stephanie-[place] Gold 344-1,050-1,000 mg tablet, effervescent 1 tab PO Q4H PRN (Reason: STOMACH) budesonide 32 mcg/actuation aerosol 32 mcg intranasal ONCE PRN (Reason: ALLERGIES) prednisone 5 mg tablet 5 mg PO DAILY Rx Instructions: 5 mg maintenance dose, 15 mg if having flare up cromolyn [Gastrocrom] 100 mg/5 mL concentrate 200 mg PO 4X/DAY prednisone 1 mg tablet 1 mg PO DAILY PRN (Reason: as directed for flares and tapers) prednisone 10 mg tablet 10 mg PO DIRECTED PRN (Reason: as directed for flares and tapers) potassium chloride 20 mEq tablet extended release 20 meq PO DAILY ciprofloxacin HCl 250 mg tablet 250 mg PO BID atorvastatin 20 mg tablet 20 mg PO QHS Qty: 90 3RF Premarin 0.625 MG tablet 0.625 mg PO DAILY nitrofurantoin macrocrystal 50 mg capsule 50 mg PO DAILY PRN (Reason: infection) Patient Comments: Take 1 capsule by mouth once daily. May increase to 4 times daily for acute UTI for 5 days as needed then resume once daily. Rx Instructions: Take 1 capsule by mouth once daily. May increase to 4 times daily for acute UTI for 5 days as needed then resume once daily. cetirizine [Zyrtec] 10 mg Tablet 5 mg PO BID acetaminophen 500 mg tablet 1,000 mg PO BID PRN (Reason: pain) triamterene-hydrochlorothiazid 37.5-25 mg capsule 1 cap PO DAILY hydrocortisone acetate 25 mg suppository 25 mg [place] BID PRN (Reason: hemorrhoids) chlordiazepoxide HCl 5 mg capsule 5 mg PO .PRN PRN (Reason: agitation) Qty: 90 3RF furosemide 20 mg tablet 40 mg PO DAILY PRN (Reason: edema) Primary Care Provider: Jennie Turk Referrals: Jennie Turk MD [Primary Care Provider] - 5-7 Days Print Language: Wolof Disposition Disposition: Home, Self Care
[2024-11-09 22:39] LABS: Absolute Lymphocyte Count 2.04 X10^3/uL (0.83-4.51); Absolute Neutrophil Count 10.1 X10^3/uL (2.0-7.7); Basophil# 0.06 X10^3/uL; Basophil% 0.5 % (0-1); Eosinophil# 0.09 X10^3/uL; Eosinophils% 0.7 % (0-5); Hematocrit 37.9 % (37-47); Hemoglobin 13.5 g/dL (12.0-15.0); Lymphocyte # 2.04 X10^3/ul (0.83-4.51); Lymphocyte % 15.4 % (19-41); Mean Corp Hgb Conc 35.6 g/dL (32-36); Mean Corpuscular Hgb 32.3 pg (27.0-32.0); Mean Corpuscular Volume 90.7 fL (81-99); Mean Platelet Vol. 8.5 fl (6.2-12.0); Monocyte# 0.86 X10^3/uL; Monocyte% 6.5 % (0-10); NRBC Flagged by Analyzer 0 % (0-5); Neutrophil # 10.14 X10^3/uL (2.7-7.7); Neutrophil % 76.5 % (47-70); Platelet Count 309 K/mm3 (150-450); RBC Distribution Width CV 12.9 % (11.6-14.6); RBC Distribution Width SD 42.9 fl (35.1-43.9); Red Blood Count 4.18 M/mm3 (4.2-5.4); White Blood Count 13.2 K/mm3 (4.4-11.0)
[2024-11-09 23:03] VITALS: BP 155/90; PULSE 83; RESP 18; O2SAT 99
[2024-11-09 23:09] LABS: Color, Urine Yellow (Yellow); Glucose, Dipstick Normal (Normal); Ketone-Dipstick Negative (Negative); Leukocyte Esterase-Dipstick Negative /ul (Negative); Nitrite-Dipstick Negative (Negative); Occult Blood-Urine 25 /ul (Negative); Protein-Dipstick 15 mg/dl (Negative); Specific Gravity, Urine 1.015 (1.002-1.030); Urine Bilirubin Dipstick Negative (Negative); Urine Clarity Clear (Clear); Urine Urobilinogen Normal (Normal)
[2024-11-09 23:15] LABS: Anion Gap 14 (5-15); BUN 12 mg/dL (4-19); BUN/Creat Ratio 14.9 RATIO (10-20); Calcium,Total 8.1 mg/dL (7.6-11.0); Carbon Dioxide 20.9 mmol/L (21.0-32.0); Chloride 90 mmol/L (98-108); Creatinine, Serum 0.83 mg/dL (0.70-1.20); EST Glomerular Filtration Rate 72 (>60); Estimated Creatinine Clearance 62.39 ml/min (50-250); Glucose 100 mg/dL (70-99); Potassium 3.5 mmol/L (3.3-5.1); Sodium Level 124 mmol/L (133-145)
[2024-11-09 23:18] LABS: Red Blood Cells-Urine 0-5 SEEN /hpf (0-5); White Blood Cells 0-5 SEEN /hpf (0-5)
[2024-11-09 23:19] LABS: Amorphous Sediment 1+; Bacteria 1+ /hpf (None Seen); Mucous, Urine 0 SEEN /hpf (<or=2+); Squamous Epithelial Cells - UA 0-5 SEEN /hpf (5-10)
== END 2024-11-09 23:43 | disposition home or self-care (01) ==
PROVIDERS: Emergency Provider Emergency Medicine; PCP Internal Medicine; Visit Provider Emergency Medicine
DX: I11.0 Hypertensive heart disease with heart failure (principal); I50.32 Chronic diastolic (congestive) heart failure; I48.19 Other persistent atrial fibrillation; I25.5 Ischemic cardiomyopathy; I25.10 Atherosclerotic heart disease of native coronary artery without angina pectoris; M54.9 Dorsalgia, unspecified; E78.5 Hyperlipidemia, unspecified; G89.29 Other chronic pain; Z90.710 Acquired absence of both cervix and uterus; Z95.5 Presence of coronary angioplasty implant and graft; Z79.899 Other long term (current) drug therapy
CPT/HCPCS: 80048; 81001; 85025; 99283; A4216

== ENCOUNTER 2025-04-12 13:33 | Outpatient (RCR) | payer MEDICARE, SELFPAY ==
--- NOTE | 2025-04-12 16:39 | HP.PTEVAL_ITS ---
Patient's Visit Information Visit Information Visit Information: COREEN JAY is a 79 year old F referred to Physical Therapy by Dr. Jennie Turk MD with a diagnosis of Urinary incontinence without sensory awareness N39.42, Stress incontinence. Date of Evaluation: 04/12/25 Physical Therapist: Ethel Navarro Visit Plan Frequency: 1x/Week Duration: 3 Months Plan: Coreen would benefit from skilled PT intervention to address her incontinence. We will complete an internal pelvic floor exam at her next visit once her UTI infection is cleared. I anticipate she may have some pelvic floor tightness which we will address with manual therapy. Once her tightness more resolved, we will educate her in a pelvic floor strengthening program for home to improve her control. Next visit (if UTI infection cleared) will complete a pelvic floor exam. Anticipating she may have pelvic floor tightness? Will also evaluate her low back. Please review deep breathing and see how she has been doing with that (gave her deep breathing for today's visit with handout) Subjective Subjective: For some time she has noticed a mild amount of incontinence with a cough or sneeze. She wore a pantiliner to bed and has been that way for over 5 years but never worsened and was manageable. Didn't interfere with anything. Heart attack on 2021. She immediately went into the clinical lab clerk from the ER to get 2 stents placed. They put her on a handful of medications but one of them was Amiodarone. She was on this just a few days and she started to having trouble passing urine. The next day she couldn't void at all. ER doctor had kaiser catheter inserted but she admits it was painful. She was to see urologist in 48 hours to have removed. Urologist wanted her to wear kaiser cath for a week. She was in pain for a week and she felt like her insides were falling out. Constant pain 7/10. Urologist took the kaiser out in a week. She was uncomfortable trying to urinate and there was hesitancy in her stream after catheter removed (beginning of 2022). Symptoms have slowly gotten worse. Kegels seemed to make the problem worse and would bring on an infection. She has quite doing them. If she takes a diuretic, her leaking is dramatically worse. Otherwise she can wear 2 pads a day. If she is taking diuretic, she can triple the number of pads. When she goes from sitting to standing she can leak. She never leaks at night and she is never up at night to urinate. 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 She can walk outside and not leak but she can leak with reaching up for a glass out of cabinet. Leakage more noticeable in the evening but never overnight. Pads always dry in the morning. Sneeze and cough still causes leakage. She aches at times in the opening in vaginal canal. She had an infection about 6 weeks ago but she doesn't think it cleared. She currently has a bladder infection and is on antibiotics. February 1980 she had a hysterectomy and the doctor also tacked up the bladder. She at times feels like her insides are falling out and she feels pressure vaginally when she is more fatigued. She also has low back problems. 50 years ago she had an injury with significant bruising and muscle tearing. She was off work 6 months. Has been a problem all her life but in the last 10 years she feels like her pain has improved. Day to day now her pain is nonexistent. She avoids lifting. She doesn't have urgency problems and always makes it to the restroom without leaking. She never doesn't make it to the bathroom. She leaks moderate amount, with diuretic she leaks more. No trouble with bowel movements. Constipation is very rare. She has IBS. Stress triggers that. She wears a back brace. She lives by herself with several flights of stairs in her home. Her hobby is gardening. She doesn't drive. She is pretty active. She never drinks anything but water. Her goal is to improve the incontinence so she can go back to wearing panti liners. The limitations it is imposing on her life are more pride and self imposed. Objective Objective: No internal vaginal exam due to patient's current UTI and being treated with antibiotics POPDI-6 0, CRAD-8 1, AIDA-6 4 Breathing evaluation: Breathing into her chest initially and not as much in her belly, bearing down into her pelvic floor on exhale Goals Goal 1:: Coreen will be able to go thru her day to day activities with the need for only a panti liner vs. several larger pads a day. Goal Time Frame: 8-12 Weeks Goal 2:: Coreen will be able to transfer sit to stand without leaking. Goal Time Frame: 6-8 Weeks Goal 3:: Coreen will be able to lift medium weight objects around her home, bend or squat without leaking. Goal Time Frame: 8-12 Weeks Goal 4:: Coreen will be able to bend over to curing pickling packer an object from the floor without leaking. Goal Time Frame: 6-8 Weeks Rehabilitation Potential Physical Therapy Diagnosis: Stress incontinence N39.3 Rehabilitation Potential: Good Anticipated Interventions Patient/Client Instruction: Educate patient on: Condition and Plan of Care For the Purpose of:: To improve muscle performance and motor function, To improve health and function, To improve self management and To improve tolerance to ADL's Therapeutic Exercise to Include: Strength training, Neuromotor development and Relaxation training For the Purpose of:: To improve muscle performance and motor function, To improve health and function and To improve self management Manual Therapy Techniques to Include: Trigger point massage and Soft tissue mobilization For the Purpose of:: To improve muscle performance and motor function, To improve health and function and To improve self management Text: Thank you for the opportunity to evaluate your patient. For Medicare and Medicare HMO plans, please review the plan of care and approve it. It will need to be FAXED BACK to us at [phone] for Medicare purposes. For Medicare only, by signing this I certify the plan of care. Please let me know if there are questions or concerns regarding this plan of care. Physician Signature: Date:
== END 2025-04-12 19:00 | disposition home or self-care (01) ==
LOC: PT 13:33
PROVIDERS: PCP Internal Medicine; Referring Provider Internal Medicine; Visit Provider Internal Medicine
DX: N39.42 Incontinence without sensory awareness (principal); N39.3 Stress incontinence (female) (male)
CPT/HCPCS: 97162; 97530

== ENCOUNTER → 2025-06-19 | Outpatient (CLI) | payer MEDICARE, SELFPAY | END | disposition home or self-care (01) | LOC: LABSPEC 16:22 | PROVIDERS: PCP Internal Medicine; Visit Provider Obstetrics & Gynecology | DX: N94.89 Other specified conditions associated with female genital organs and menstrual cycle (principal) | CPT/HCPCS: 87070; 87205 ==

== ENCOUNTER 2025-07-01 22:40 | Inpatient (IN) | payer MEDICARE, SELFPAY ==
[2025-07-01 22:40] VITALS: BP 200/76; PULSE 88; RESP 14; TEMP 36.8; O2SAT 98
--- NOTE | 2025-07-01 23:02 | EKG12_ITS ---
Test Reason : DYSRHYTHMIA Blood Pressure : */* mmHG Vent. Rate : 78 BPM Atrial Rate : 78 BPM P-R Int : 166 ms QRS Dur : 94 ms QT Int : 400 ms P-R-T Axes : -13 -35 63 degrees QTcB Int : 456 ms Normal sinus rhythm Left axis deviation Moderate voltage criteria for LVH, may be normal variant ( R in aVL , Renato product ) Cannot rule out Inferior infarct , age undetermined Poor R-wave progression ; consider septal infarct, lead placement, or normal variant Abnormal ECG Confirmed by JAYMIE POLANCO, BARBI ([id number]), photograph editor WANDA MUSE ([id number]) on 07/03/2025 9:13:43 AM Referred By: Confirmed By: BARBI COON MD
--- NOTE | 2025-07-01 23:07 | EDS_ITS ---
HPI History of Present Illness Chief Complaint: Complaint Informant: patient and family Narrative Narrative: Patient is a 79-year-old female with a history of cardiac stents presenting with dysuria, abdominal bloating, and dyspnea. - Reports difficulty urinating throughout the day, accompanied by a burning sensation; denies pain or discomfort during urination. - Has been drinking a lot of fluids. - Denies nausea or emesis. - Has been using test strips at home, which have been negative for UTI. - Last attempted to urinate about an hour before arrival. - Noted abdominal bloating and a heavy feeling this evening, making it difficult to take a full breath. - Denies chest pain or dyspnea earlier today, but reports some difficulty breathing tonight, attributing it to abdominal bloating. - Concerns about oxygen saturation levels, which dropped to 93% at home; has been advised to be concerned if levels fall below 94% due to cardiac history. - Denies known history of CHF or emphysema. - Has two cardiac stents; denies other known cardiac issues (PAfib in EHR). - Recent facial biopsies on Thursday; healing well. - Denies any recent changes in bowel movements; had a normal bowel movement today. [facility] Medical History Diastolic CHF Hypertension with intolerance to multiple antihypertensive drugs Persistent atrial fibrillation HLD (hyperlipidemia) Vocal cord granuloma Ischemic cardiomyopathy History of carpal tunnel syndrome History of chronic back pain Essential hypertension Presence of stent in coronary artery (~08/08/21) Atherosclerotic heart disease of [place] coronary artery without angina pectoris Non-STEMI (non-ST elevated myocardial infarction) Fracture of metatarsal of left foot, closed Arthritis Home Medications ?Medication ?Instructions ?Recorded ?Last Taken ?Type conjugated estrogens 0.625 mg 0.625 mg PO DAILY hormon es 02/12/14 10/09/21 H istory tablet (Premarin) hydrocortisone acetate 25 mg 25 mg [place] BID PRN hemorrho ids 08/20/21 10/09/21 History rectal suppository pot bicarb 344 mg-sod bicarb 1,050 [address] PO Q4H [address] OMACH 08/30/21 Unknown History mg-citric acid 1,000 mg efferv tab (Stephanie-[place] Gold) cetirizine 10 mg tablet (Zyrtec) 5 mg PO BID ALLERGIES 10/09/21 10/09/21 History chlordiazepoxide HCl 5 mg capsule 5 mg PO .PRN PRN nivia tation #90 caps 10/02/22 Unknown Rx prednisone 5 mg tablet 5 mg PO DAILY FLARE 12/31/22 Unknown History acetaminophen 500 mg tablet 1,000 mg PO BID PRN pain 1 09/27/22 Unknown History cromolyn 100 mg/5 mL oral 200 mg PO 4X/DAY 07/27/23 Un known History concentrate (Gastrocrom) furosemide 20 mg tablet 40 mg PO DAILY PRN edema 07/09 Unknown History prednisolone acetate 0.12 % eye 1 drp ophthalmic (eye) MOWEFR eye 07/27/23 Unknown History drops,suspension health prednisone 1 mg tablet 1 mg PO DAILY PRN as directe d for 07/27/23 Unknown History flares and tapers prednisone 10 mg tablet 10 mg PO DIRECTED PRN as 07/27/23 Unknown History directed for flares and tapers potassium chloride 20 mEq 20 meq PO DAILY 12/21/23 Unk nown History tablet,extended release budesonide 32 mcg/actuation nasal 32 mcg intranasal DA ANIBAL PRN 02/06/25 Unknown History spray,aerosol ALLERGIES olopatadine 0.2 % eye drops 1 drp ophthalmic (eye) ONC E PRN 02/06/25 Unknown History (Pataday Once Daily Relief) eye health triamterene 37.5 1 cap PO DAILY PRN bp Unknown History mg-hydrochlorothiazide 25 mg capsule
--- NOTE | 2025-07-01 23:07 | EX.ED.DYSGE1 ---
HPI History of Present Illness Chief Complaint: Complaint Informant: patient and family Narrative Narrative: Patient is a 79-year-old female with a history of cardiac stents presenting with dysuria, abdominal bloating, and dyspnea. - Reports difficulty urinating throughout the day, accompanied by a burning sensation; denies pain or discomfort during urination. - Has been drinking a lot of fluids. - Denies nausea or emesis. - Has been using test strips at home, which have been negative for UTI. - Last attempted to urinate about an hour before arrival. - Noted abdominal bloating and a heavy feeling this evening, making it difficult to take a full breath. - Denies chest pain or dyspnea earlier today, but reports some difficulty breathing tonight, attributing it to abdominal bloating. - Concerns about oxygen saturation levels, which dropped to 93% at home; has been advised to be concerned if levels fall below 94% due to cardiac history. - Denies known history of CHF or emphysema. - Has two cardiac stents; denies other known cardiac issues (PAfib in EHR). - Recent facial biopsies on Thursday; healing well. - Denies any recent changes in bowel movements; had a normal bowel movement today. [facility] Medical History Diastolic CHF Hypertension with intolerance to multiple antihypertensive drugs Persistent atrial fibrillation HLD (hyperlipidemia) Vocal cord granuloma Ischemic cardiomyopathy History of carpal tunnel syndrome History of chronic back pain Essential hypertension Presence of stent in coronary artery (~08/08/21) Atherosclerotic heart disease of [place] coronary artery without angina pectoris Non-STEMI (non-ST elevated myocardial infarction) Fracture of metatarsal of left foot, closed Arthritis Home Medications ?Medication ?Instructions ?Recorded ?Last Taken ?Type conjugated estrogens 0.625 mg 0.625 mg PO DAILY hormones 02/12/14 10/09/21 History tablet (Premarin) hydrocortisone acetate 25 mg 25 mg SC BID PRN hemorrhoids 08/20/21 10/09/21 History rectal suppository pot bicarb 344 mg-sod bicarb 1,050 1 tab PO Q4H PRN STOMACH 08/30/21 Unknown History mg-citric acid 1,000 mg efferv tab (Stephanie-Rodeo Gold) cetirizine 10 mg tablet (Zyrtec) 5 mg PO BID ALLERGIES 10/09/21 10/09/21 History chlordiazepoxide HCl 5 mg capsule 5 mg PO .PRN PRN agitation #90 caps 10/02/22 Unknown Rx prednisone 5 mg tablet 5 mg PO DAILY FLARE 12/31/22 Unknown History acetaminophen 500 mg tablet 1,000 mg PO BID PRN pain 07/27/23 Unknown History cromolyn 100 mg/5 mL oral 200 mg PO 4X/DAY 07/27/23 Unknown History concentrate (Gastrocrom) furosemide 20 mg tablet 40 mg PO DAILY PRN edema 07/27/23 Unknown History prednisolone acetate 0.12 % eye 1 drp ophthalmic (eye) MOWEFR eye 07/27/23 Unknown History drops,suspension health prednisone 1 mg tablet 1 mg PO DAILY PRN as directed for 07/27/23 Unknown History flares and tapers prednisone 10 mg tablet 10 mg PO DIRECTED PRN as 07/27/23 Unknown History directed for flares and tapers potassium chloride 20 mEq 20 meq PO DAILY 12/21/23 Unknown History tablet,extended release budesonide 32 mcg/actuation nasal 32 mcg intranasal DAILY PRN 02/06/25 Unknown History spray,aerosol ALLERGIES olopatadine 0.2 % eye drops 1 drp ophthalmic (eye) ONCE PRN 02/06/25 Unknown History (Pataday Once Daily Relief) eye health triamterene 37.5 1 cap PO DAILY PRN bp 02/06/25 Unknown History mg-hydrochlorothiazide 25 mg capsule Allergy/AdvReac Type Severity Reaction Status Date / Time aspirin Allergy Severe Tight in Verified 07/01/25 22:41 throat, Severe tinnitus, nosebleeds, dizzy. clopidogrel Allergy Intermediate Hives Verified 07/01/25 22:41 levofloxacin (From Levaquin) Allergy Intermediate RAPID HEART Verified 07/01/25 22:41 alprazolam (From Xanax) Allergy Unknown Unknown Verified 07/01/25 22:41 [place] And Derivatives Allergy Unknown Unknown Verified 07/01/25 22:41 mushroom Allergy Unknown Unknown Verified 07/01/25 22:41 paroxetine (From Paxil) Allergy Unknown Unknown Verified 07/01/25 22:41 peanut Allergy Unknown Unknown Verified 07/01/25 22:41 ticagrelor (From Brilinta) Allergy Unknown unknown Verified 07/01/25 22:41 tolmetin (From Tolectin) Allergy Unknown Unknown Verified 07/01/25 22:41 Yeast Allergy Unknown Unknown Verified 07/01/25 22:41 acetaminophen (From Allergy Other Verified 07/01/25 22:41 Darvocet-N) codeine Allergy Other Verified 07/01/25 22:41 fluconazole (From Diflucan) Allergy Rash Verified 07/01/25 22:41 lidocaine Allergy Other Verified 07/01/25 22:41 meperidine HCl (From Demerol) Allergy Other Verified 07/01/25 22:41 metronidazole (From Metrogel) Allergy Rash Verified 07/01/25 22:41 Opioids - Morphine Analogues Allergy Other Verified 07/01/25 22:41 oxycodone HCl (From Percodan) Allergy Other Verified 07/01/25 22:41 oxycodone terephthalate Allergy Other Verified 07/01/25 22:41 (From Percodan) Penicillins Allergy Rash Verified 07/01/25 22:41 propoxyphene napsylate (From Allergy Other Verified 07/01/25 22:41 Darvocet-N) Sulfa (Sulfonamide Allergy Rash Verified 07/01/25 22:41 Antibiotics) amiodarone AdvReac Severe Severe Verified 07/01/25 22:41 urinary retention Beef Containing Products AdvReac Severe Unknown Verified 07/01/25 22:41 carvedilol AdvReac Severe Very Verified 07/01/25 22:41 lightheaded, Dizziness, floating on ceiling feeling. amlodipine AdvReac Mild fatigue, Verified 07/01/25 22:41 swelling cheese AdvReac Mild Unknown Verified 07/01/25 22:41 atorvastatin AdvReac Unknown brain fog, Verified 07/01/25 22:41 congestion, fatigue egg AdvReac Unknown Unknown Verified 07/01/25 22:41 maltose AdvReac Unknown Unknown Verified 07/01/25 22:41 adhesive tape AdvReac Rash Verified 07/01/25 22:41 Cephalosporins AdvReac Shortness Verified 07/01/25 22:41 of breath cyclobenzaprine (From AdvReac NEEDS Verified 07/01/25 22:41 Flexeril) FOLLOW-UP epinephrine AdvReac NEEDS Verified 07/01/25 22:41 FOLLOW-UP estrogens, conjugated (From AdvReac NEEDS Verified 07/01/25 22:41 Premarin) FOLLOW-UP glycerin AdvReac Itching Verified 07/01/25 22:41 Iodinated Contrast Media AdvReac HALLUCINATI Verified 07/01/25 22:41 (iodine contrast) ONS lisinopril AdvReac Shortness Verified 07/01/25 22:41 of breath midazolam (From Versed) AdvReac NEEDS Verified 07/01/25 22:41 FOLLOW-UP ofloxacin (From Floxin) AdvReac NEEDS Verified 07/01/25 22:41 FOLLOW-UP phenol AdvReac Shortness Verified 07/01/25 22:41 of breath salicylates AdvReac Shortness Verified 07/01/25 22:41 of breath spider venom AdvReac Nausea Verified 07/01/25 22:41 spironolactone AdvReac GI upset Verified 07/01/25 22:41 and burning urination Family History Father Rheumatic heart disease Mother Cancer Other Allergies Asthma Surgical History History of eye surgery History of bilateral cataract extraction History of D&C History of tonsillectomy History of tubal ligation Presence of coronary angioplasty implant and graft (~08/08/21) H/O: hysterectomy Social History household members: none Smoking Status: Never smoker alcohol intake: never substance use type: does not use diet: low salt and other what type of physical activity do you participate in: none seatbelt use: always do you feel safe at home: Yes additional social history: ROS ROS ED Constitutional Constitutional ED: Denies chills or fever(s) Eyes Eyes: Denies change in vision or diplopia ENT ENT ED: Denies rhinorrhea or sore throat Cardiovascular Cardiovascular: Denies chest pain or palpitations Respiratory/Chest Respiratory/Chest: Reports dyspnea; Denies cough Gastrointestinal Gastrointestinal: Reports bloating; Denies abdominal pain, diarrhea, nausea or vomiting Genitourinary Genitourinary ED: Reports as per HPI, difficulty urinating and urinary frequency; Denies dysuria or hematuria Musculoskeletal Musculoskeletal: Denies back pain or neck pain Integumentary Denies abscess or rash Neurologic Neurologic: Denies headache(s), paresthesias or weakness Psychiatric Psychiatric: Reports anxiety; Denies suicidal thoughts EXAM Physical Exam Const Vital Signs: 07/01/25 22:40 07/01/25 23:02 07/01/25 23:18 Temperature 98.2 F Temperature Source Oral Pulse Rate 88 80 Respiratory Rate 14 16 Respiratory Pattern Normal Blood Pressure 200/76 H Blood Pressure Mean 117 Pulse Ox 98 Oxygen Delivery Method Room Air Oxygen Flow Rate (L/min) 07/01/25 23:40 07/01/25 23:48 Temperature Temperature Source Pulse Rate 76 Respiratory Rate 17 Respiratory Pattern Blood Pressure 191/88 H Blood Pressure Mean 122 Pulse Ox 82 96 Oxygen Delivery Method Room Air Nasal Cannula Oxygen Flow Rate (L/min) 5 Positive well nourished and well developed General Appearance ED: well developed and NAD HEENT Reports moist mucous membranes normocephalic and atraumatic Eyes PERRL and EOMs intact bilaterally Neck full ROM and supple Neck Narrative: mild JVD Resp Resp Narrative: Tachypneic without distress, bibasilar rhonchi similar bilaterally trachea midline; possibly some mild expiratory wheezes bilaterally. Cardio regular rate and regular rhythm GI non-tender and non-distended Auscultation: normoactive bowel sounds Palpation: soft Back/Spine no CVA tenderness General Back: other FROM Extremity normal to inspection General Extremety ED: Yes edema; Negative for pulses abnormal or tenderness General Extremity: edema bilateral lower extremity Details: moderate; Negative for pulses abnormal Neuro oriented x3, CN's II-XII intact bilaterally and no sensory deficits noted Sensorium / Orientation: awake and alert Motor Exam: strength 5/5 throughout Psych Mood & Affect: anxious Skin no rashes or lesions noted and no wounds MDM MDM MDM Narrative Medical decision making narrative: Patient has bibasilar rhonchi, chronic edema in her legs, mild JVD, and a triage blood pressure of 200/76 mmHg. My concern is that she may be in acute CHF, although she does not have a known history of this. I reviewed an echocardiogram from 10/30/2022, which shows an ejection fraction of 60% and trivial mitral insufficiency. Additionally, the patient?s medication list includes PRN Lasix, which she states she has not been taking recently. While working her up, she was given a nebulizer treatment for her dyspnea but continued to experience shortness of breath without significant improvement, resting with an oxygen saturation of 82% on room air. She was placed on a 5-liter nasal cannula and seemed to breathe a bit better afterward. A chest X-ray (two views) appears to show some mild CHF, but her proBNP is 1591, which is not significantly elevated for her age. There are signs of LV strain on the EKG. She has mild leukocytosis of 12.2, which is nonspecific. Her troponin is within normal limits, and her levothyroxine and lipase levels are normal. She has significant electrolyte disturbances with a sodium of 121, potassium of 3.1, and chloride of 85, although her renal function is normal. Given these findings, I administered a dose of Lasix and provided potassium replacement. The plan is to admit her to the hospital, and I have discussed this with the hospitalist. Lab Data Attestation: I reviewed the patient's lab results. Labs: Laboratory Results - last 24 hr 07/01/25 23:17 WBC 12.2 H RBC 4.07 L Hgb 12.8 Hct 37.2 MCV 91.4 MCH 31.4 MCHC 34.4 RDW Std Deviation 43.1 RDW Coeff of [place] 12.9 Plt Count 310 MPV 8.7 Immature Gran % (Auto) 0.500 Neut % (Auto) 74.3 H Lymph % (Auto) 16.9 L [place] % (Auto) 6.7 Eos % (Auto) 1.1 Baso % (Auto) 0.5 Absolute Neuts (auto) 9.0 H Absolute Lymphs (auto) 2.06 Nucleated RBC % 0 Sodium 121 L Potassium 3.1 L Chloride 85 L Carbon Dioxide 20.2 L Anion Gap 16 H BUN 12 Creatinine 0.85 Est GFR (MDRD) Non-Af 70 BUN/Creatinine Ratio 14.1 Glucose 119 H Calcium 8.8 Total Bilirubin 0.55 AST 25 ALT 16 Alkaline Phosphatase 55 Troponin T High Sens 14 NT pro BNP II 1591 Total Protein 7.0 Albumin 4.1 Globulin 2.9 Albumin/Globulin Ratio 1.4 Lipase 25 Rhythm Strip Rhythm Strip: Sinus Rhythm Rate: 78 Ectopy: None EKG Initial EKG: Attestation: I personally reviewed and interpreted this EKG as follows: Interpretation: Sinus Rhythm, No Acute Injury Pattern, Inverted T-Waves (high lat) and S-T Depression (high lat <1mm) Prior EKG tracings: available for review Prior: Changed Management Discussion w/another healthcare provider: Hospitalist Discharge Plan Dx/Rx/DC Orders Clinical Impression: Acute hyponatremia, Hypoxemia, Acute hypokalemia, Pulmonary edema, acute, Accelerated hypertension Disposition Disposition: Acute Care Hospital [facility]
[2025-07-01 23:18] VITALS: PULSE 80; RESP 16
[2025-07-01] MEDS: Albuterol 2.5 MG/3 ML VIAL.NEB. INHALATION (23:18)
[2025-07-01 23:25] LABS: Hematocrit 37.2 % (37-47); Hemoglobin 12.8 g/dL (12.0-15.0); Immature Granulocytes Count 0.060 X10^3/uL (0.0-0.0); Mean Corp Hgb Conc 34.4 g/dL (32-36); Mean Corpuscular Volume 91.4 fL (81-99); Mean Platelet Vol. 8.7 fl (6.2-12.0); NRBC Flagged by Analyzer 0 % (0-5); Platelet Count 310 K/mm3 (150-450); RBC Distribution Width CV 12.9 % (11.6-14.6); RBC Distribution Width SD 43.1 fl (35.1-43.9); Red Blood Count 4.07 M/mm3 (4.2-5.4); White Blood Count 12.2 K/mm3 (4.4-11.0)
[2025-07-01 23:40] VITALS: O2SAT 82
[2025-07-01 23:42] VITALS: PULSE 74; RESP 14; O2SAT 97
[2025-07-01 23:45] VITALS: BP 191/88; PULSE 74; RESP 20; O2SAT 98
[2025-07-01 23:48] VITALS: BP 191/88; PULSE 76; RESP 17; O2SAT 96
--- NOTE | 2025-07-01 23:59 | RAD_ITS ---
PROCEDURE: CHEST PA AND LATERAL 07/01/2025 REASON FOR EXAM: SOB TECHNIQUE: Procedure Code: RADCXR Modality: DX Procedure: CHEST PA AND LATERAL COMPARISON: 04/27/2023 FINDINGS: Hardware: None Heart: The heart size is normal. Mediastinum: The mediastinal contour is unremarkable. Lungs: Patchy bibasilar airspace opacities. No definite pneumothorax or sizable pleural effusion. Bones: The bones are unremarkable. RAD/Chest PA and Lateral IMPRESSION: Patchy bibasilar airspace opacities. Reading [facility]
[2025-07-02] VITALS (18 sets, daily range): BP systolic 114–217; BP diastolic 56–122; PULSE 73–97; RESP 15–23; TEMP 36.3–37.4; O2SAT 94–100; BMI 29.0
[2025-07-02 00:02] LABS: AST(SGOT) 25 U/L (<=31); Alanine Aminotransfer ALT/SGPT 16 U/L (<=34); Albumin, Serum 4.1 g/dL (3.4-4.8); Alkaline Phosphatase 55 U/L (35-104); Anion Gap 16 (5-15); BUN 12 mg/dL (4-19); BUN/Creat Ratio 14.1 RATIO (10-20); Calcium,Total 8.8 mg/dL (7.6-11.0); Carbon Dioxide 20.2 mmol/L (21.0-32.0); Chloride 85 mmol/L (98-108); Globulin 2.9 g/dL (2.2-4.2); Glucose 119 mg/dL (70-99); Lipase 25 U/L (13-75); Potassium 3.1 mmol/L (3.3-5.1); Pro- Brain NATRIURETIC PEPTIDE 1591 pg/mL (<=1800); Troponin T High Sensitivity 14 ng/L (<=14)
--- NOTE | 2025-07-02 00:38 | PCM.HP.STD ---
HPI - General General Date of Admission: 07/02/25 Date of Service: 07/02/25 Chief Complaint: Dyspnea, dysuria. HPI Narrative The patient is a 79 y/o F w/ PMHx: CAD s/p PCI, HFpEF/Ischemic cardiomyopathy, Obesity, CKD stage III unclear subtype, HTN, HLD, Allergic rhinitis, PAF who presents to the [facility] ED on 07/02/2025 with history of dyspnea, abdominal fullness/bloating as well as reportedly difficulty urinating through the day with mild dysuria sensation despite having drinking a lot of fluids per her report prompting eventual ED evaluation to be cautious. She is uncertain of any weight gain, notes stable chronic lower extremity swelling and unchanged right lower extremity erythema which is stable with venous stasis skin changes but does admit to notable orthopnea. Workup in the ED included T98.2, heart rate 88, BP initially 200/76, respiratory rate 14, 98% however patient desaturated down to 82% on room air with improvement to 96% on 5 L nasal cannula with most recent repeat heart rate 76, BP 191/88, respiratory rate 17, CBC with WBC 12.2, hemoglobin 12.8, platelets 310 with left shift, CMP with sodium 121, potassium 3.1, chloride 85, carbon oxide 20.2, anion gap 16, glucose 119, hepatic profile unremarkable, troponin 14, NT proBNPII 1591, chest x-ray concern for cephalization/overload, EKG with sinus rhythm with nonspecific ST-T changes similar to previous with no acute evidence of ischemia. In the ED patient ministered albuterol, potassium 10 mill equivalents IV x 1 as well as Lasix 40 mg IV x 1. [facility] Medical History Diastolic CHF Hypertension with intolerance to multiple antihypertensive drugs Persistent atrial fibrillation HLD (hyperlipidemia) Vocal cord granuloma Ischemic cardiomyopathy History of carpal tunnel syndrome History of chronic back pain Essential hypertension Presence of stent in coronary artery (~08/08/21) Atherosclerotic heart disease of [place] coronary artery without angina pectoris Non-STEMI (non-ST elevated myocardial infarction) Fracture of metatarsal of left foot, closed Arthritis Home Medications ?Medication ?Instructions ?Recorded ?Last Taken ?Type conjugated estrogens 0.625 mg 0.625 mg PO DAILY hormones 02/12/14 10/09/21 History tablet (Premarin) hydrocortisone acetate 25 mg 25 mg [place] BID PRN hemorrhoids 08/20/21 10/09/21 History rectal suppository pot bicarb 344 mg-sod bicarb 1,050 1 tab PO Q4H PRN STOMACH 08/30/21 Unknown History mg-citric acid 1,000 mg efferv tab (Stephanie-[place] Gold) cetirizine 10 mg tablet (Zyrtec) 5 mg PO BID ALLERGIES 10/09/21 10/09/21 History chlordiazepoxide HCl 5 mg capsule 5 mg PO .PRN PRN agitation #90 caps 10/02/22 Unknown Rx acetaminophen 500 mg tablet 1,000 mg PO BID PRN pain 07/27/23 Unknown History cromolyn 100 mg/5 mL oral 200 mg PO 4X/DAY 07/27/23 Unknown History concentrate (Gastrocrom) prednisolone acetate 0.12 % eye 1 drp ophthalmic (eye) MOWEFR eye 07/27/23 Unknown History drops,suspension health prednisone 10 mg tablet 10 mg PO DIRECTED PRN as 07/27/23 Unknown History directed for flares and tapers potassium chloride 20 mEq 20 meq PO DAILY 12/21/23 Unknown History tablet,extended release olopatadine 0.2 % eye drops 1 drp ophthalmic (eye) ONCE PRN 02/06/25 Unknown History (Pataday Once Daily Relief) eye health triamterene 37.5 1 cap PO DAILY PRN bp 02/06/25 Unknown History mg-hydrochlorothiazide 25 mg capsule Allergy/AdvReac Type Severity Reaction Status Date / Time aspirin Allergy Severe Tight in Verified 07/01/25 22:41 throat, Severe tinnitus, nosebleeds, dizzy. clopidogrel Allergy Intermediate Hives Verified 07/01/25 22:41 levofloxacin (From Levaquin) Allergy Intermediate RAPID HEART Verified 07/01/25 22:41 alprazolam (From Xanax) Allergy Unknown Unknown Verified 07/01/25 22:41 Anderson And Derivatives Allergy Unknown Unknown Verified 07/01/25 22:41 mushroom Allergy Unknown Unknown Verified 07/01/25 22:41 paroxetine (From Paxil) Allergy Unknown Unknown Verified 07/01/25 22:41 peanut Allergy Unknown Unknown Verified 07/01/25 22:41 ticagrelor (From Brilinta) Allergy Unknown unknown Verified 07/01/25 22:41 tolmetin (From Tolectin) Allergy Unknown Unknown Verified 07/01/25 22:41 Yeast Allergy Unknown Unknown Verified 07/01/25 22:41 acetaminophen (From Allergy Other Verified 07/01/25 22:41 Darvocet-N) codeine Allergy Other Verified 07/01/25 22:41 fluconazole (From Diflucan) Allergy Rash Verified 07/01/25 22:41 lidocaine Allergy Other Verified 07/01/25 22:41 meperidine HCl (From Demerol) Allergy Other Verified 07/01/25 22:41 metronidazole (From Metrogel) Allergy Rash Verified 07/01/25 22:41 Opioids - Morphine Analogues Allergy Other Verified 07/01/25 22:41 oxycodone HCl (From Percodan) Allergy Other Verified 07/01/25 22:41 oxycodone terephthalate Allergy Other Verified 07/01/25 22:41 (From Percodan) Penicillins Allergy Rash Verified 07/01/25 22:41 propoxyphene napsylate (From Allergy Other Verified 07/01/25 22:41 Darvocet-N) Sulfa (Sulfonamide Allergy Rash Verified 07/01/25 22:41 Antibiotics) amiodarone AdvReac Severe Severe Verified 07/01/25 22:41 urinary retention Beef Containing Products AdvReac Severe Unknown Verified 07/01/25 22:41 carvedilol AdvReac Severe Very Verified 07/01/25 22:41 lightheaded, Dizziness, floating on ceiling feeling. amlodipine AdvReac Mild fatigue, Verified 07/01/25 22:41 swelling cheese AdvReac Mild Unknown Verified 07/01/25 22:41 atorvastatin AdvReac Unknown brain fog, Verified 07/01/25 22:41 congestion, fatigue egg AdvReac Unknown Unknown Verified 07/01/25 22:41 maltose AdvReac Unknown Unknown Verified 07/01/25 22:41 adhesive tape AdvReac Rash Verified 07/01/25 22:41 Cephalosporins AdvReac Shortness Verified 07/01/25 22:41 of breath cyclobenzaprine (From AdvReac NEEDS Verified 07/01/25 22:41 Flexeril) FOLLOW-UP epinephrine AdvReac NEEDS Verified 07/01/25 22:41 FOLLOW-UP estrogens, conjugated (From AdvReac NEEDS Verified 07/01/25 22:41 Premarin) FOLLOW-UP glycerin AdvReac Itching Verified 07/01/25 22:41 Iodinated Contrast Media AdvReac HALLUCINATI Verified 07/01/25 22:41 (iodine contrast) ONS lisinopril AdvReac Shortness Verified 07/01/25 22:41 of breath midazolam (From Versed) AdvReac NEEDS Verified 07/01/25 22:41 FOLLOW-UP ofloxacin (From Floxin) AdvReac NEEDS Verified 07/01/25 22:41 FOLLOW-UP phenol AdvReac Shortness Verified 07/01/25 22:41 of breath salicylates AdvReac Shortness Verified 07/01/25 22:41 of breath spider venom AdvReac Nausea Verified 07/01/25 22:41 spironolactone AdvReac GI upset Verified 07/01/25 22:41 and burning urination Family History Father Rheumatic heart disease Mother Cancer Other Allergies Asthma Surgical History History of eye surgery History of bilateral cataract extraction History of D&C History of tonsillectomy History of tubal ligation Presence of coronary angioplasty implant and graft (~08/08/21) H/O: hysterectomy Social History household members: none Smoking Status: Never smoker alcohol intake: never substance use type: does not use diet: low salt and other what type of physical activity do you participate in: none seatbelt use: always do you feel safe at home: Yes additional social history: ROS ROS Narrative Admission Review of Systems: CONSTITUTIONAL: No weight loss, fever, chills, + weakness or fatigue. HEENT: Eyes: No visual loss, blurred vision, double vision or yellow sclerae. Ears, Nose, Throat: No hearing loss, sneezing, congestion, runny nose or sore throat. SKIN: + Chronic RLE erythema with venous stasis skin changes, occasional stage ecchymoses, abrasion. CARDIOVASCULAR: + Chronic lower extremity edema, orthopnea. No chest pain, chest pressure or chest discomfort, syncopal events. RESPIRATORY: + Shortness of breath, occasional nonproductive cough, occasional wheezing. No hemoptysis. GASTROINTESTINAL: No anorexia, nausea, vomiting or diarrhea, abdominal pain, melena, BRBPR. GENITOURINARY: + Hesitancy, dysuria, urinary frequency. NEUROLOGICAL: No headache, dizziness, syncope, paralysis, ataxia, numbness or tingling in the extremities, focal weakness, change in bowel or bladder control, seizure. MUSCULOSKELETAL: + muscle, back pain, joint pain or stiffness. HEMATOLOGIC: No anemia, bleeding or bruising. LYMPHATICS: No enlarged nodes. No history of splenectomy. PSYCHIATRIC: No history of depression or anxiety. ENDOCRINOLOGIC: No reports of sweating, cold or heat intolerance. No polyuria or polydipsia. ALLERGIES: + history of hives, allergic rhinitis. Vital Signs Vital Signs Vital Signs: 07/01/25 22:40 07/01/25 23:02 07/01/25 23:18 Temperature 98.2 F Temperature Source Oral Pulse Rate 88 80 Respiratory Rate 14 16 Respiratory Pattern Normal Blood Pressure 200/76 H Blood Pressure Mean 117 Pulse Ox 98 Oxygen Delivery Method Room Air Oxygen Flow Rate (L/min) 07/01/25 23:40 07/01/25 23:48 Temperature Temperature Source Pulse Rate 76 Respiratory Rate 17 Respiratory Pattern Blood Pressure 191/88 H Blood Pressure Mean 122 Pulse Ox 82 96 Oxygen Delivery Method Room Air Nasal Cannula Oxygen Flow Rate (L/min) 5 Physical Exam Narrative Physical Examination: General: Awake, alert, oriented x 3 and cooperative, seated upright in the ED bed, fatigued appearing. Skin: Normal color, normal turgor, no icterus, no cyanosis except bilateral lower extremity chronic venous stasis skin changes, chronic right lower extremity anterior brody erythema, occasional stage ecchymoses, abrasion. HEENT: AT/NC, EOMI, PERRLA, MMM, no carotid bruits, difficult to discern JVD given very thickened neck. Lungs: Significantly diffusely diminished, greater bases, mildly increased respiratory rate and some special tester muscle usage but no distress, coarse, rhonchorous with bilateral rales more so at bases, occasional soft distant and expiratory wheeze. Heart: Regular rate and rhythm; no gallop, rub audible. Abdomen: Soft, obese, NTTP, ND, mildly hyperactive BS, no appreciated HSM. Extremities: No cyanosis, no clubbing, bilateral peripheral lower extremity edema, 2-3+ pitting, chronic right lower extremity skin changes with venous stasis skin changes/erythema which is stable. Neurological: Patient awake, alert, oriented as noted, cognitive function intact; pupils equally reactive to light and accommodation, cranial nerves grossly normal, moving all 4 extremities, no focal deficits, strength severely globally decrease secondary to acute presentation. Psychiatric: Affect appears fatigued, flat, no acute evidence of depressive or anxiety feelings. Results Lab / Micro Data 07/01/25 23:17 07/01/25 23:17 Labs: Laboratory Results - last 24 hr 07/01/25 23:17: WBC 12.2 H, RBC 4.07 L, Hgb 12.8, Hct 37.2, MCV 91.4, MCH 31.4, MCHC 34.4, RDW Std Deviation 43.1, RDW Coeff of Eboni 12.9, Plt Count 310, MPV 8.7, Immature Gran % (Auto) 0.500, Neut % (Auto) 74.3 H, Lymph % (Auto) 16.9 L, Cotton % (Auto) 6.7, Eos % (Auto) 1.1, Baso % (Auto) 0.5, Absolute Neuts (auto) 9.0 H, Absolute Lymphs (auto) 2.06, Nucleated RBC % 0, Sodium 121 L, Potassium 3.1 L, Chloride 85 L, Carbon Dioxide 20.2 L, Anion Gap 16 H, BUN 12, Creatinine 0.85, Est GFR (MDRD) Non-Af 70, BUN/Creatinine Ratio 14.1, Glucose 119 H, Calcium 8.8, Total Bilirubin 0.55, AST 25, ALT 16, Alkaline Phosphatase 55, Troponin T High Sens 14, NT pro BNP II 1591, Total Protein 7.0, Albumin 4.1, Globulin 2.9, Albumin/Globulin Ratio 1.4, Lipase 25 Rhythm Strip Rhythm Strip: Sinus Rhythm Rate: 78 Ectopy: None Assessment & Plan Assessment/Plan (1) Hypoxemia: PLAN: Plan The patient is a 79 y/o F w/ PMHx: CAD s/p PCI, HFpEF/Ischemic cardiomyopathy, Obesity, CKD stage III unclear subtype, HTN, HLD, Allergic rhinitis, PAF who presents to the [facility] ED on 07/02/2025 with history of dyspnea, abdominal fullness/bloating as well as reportedly difficulty urinating through the day with mild dysuria sensation despite having drinking a lot of fluids per her report prompting eventual ED evaluation to be cautious. #1. Acute Hypoxia secondary to Acutely Decompensated HFpEF: Patient administered IV lasix in the ED, will admit to PCU, maintain on cardiac telemetr, continue IV lasix diuresis, monitor I/Os, maintain on intake restriction, continue medical therapy, obtain TSH and magnesium level. Most recent ECHO 10/30/2022 with EF 60%, trivial MVI, inability to assess diastolic dysfunction thus given timeline will request repeat, CXR repeat in AM following overnight diuresis to assure no infiltrate given examination. #2. Acute hyponatremia, hypochloremia, suspect hypervolemic etiology given acute presentation #1: Will continue intervention as noted above with diuresis and continue to trend CMP. #3. Hypokalemia: Admission K+ 3.1, magnesium level requested, supplementation given, repeat level in AM. #4. Complaint of dysuria, hesitancy, urinary frequency: Urinalysis, urine culture requested, if notable initiate antibiotic therapy, monitor I/Os. #5. CAD: Most recent cardiac catheterization 08/08/2021 with PCI MIC to the mid LAD, PTCA of sidebranch of diagonal 1 with 99% stenosis improved to 10 to 20% as well as MIC stent placement to the mid RCA, patient has been intolerant to antiplatelet as well as anticoagulant therapy, previously been on metoprolol but reportedly now intolerant, additionally not on FARAZ inhibitor/ARB secondary to intolerance/allergy, following closely with cardiology who is aware of all the medication intolerances and difficulties. #6. PAF: Patient following with cardiology, has been intolerant per her report to metoprolol, aspirin, Plavix, Brilinta, Effient along with oral anticoagulant therapy that she is only continue to be monitored, at this point patient is not on any rate or rhythm agent and is noted not anticoagulated. Encourage follow-up with cardiology as previously arranged. #7. Anxiety and depression: Continue patient home chronic as needed Librium regimen, would benefit from outpatient follow-up and counseling for more appropriate regimen is well. #8. Hypertension: Continue home regimen including triamterene-hydrochlorothiazide, spironolactone, IV Lasix as noted, PRN hydralazine. #9. Hyperlipidemia: We will continue patient home statin therapy. #10. Allergic Rhinitis: Continue patient home cetirizine and budesonide nasal steroid regimen. #11. Obesity: Weight loss and lifestyle changes encouraged. #12. Chronic Kidney Disease Stage II per GFR trending: Admission BUN/Cr 12/0.85, GFR 70, baseline renal function 0.8-1.1, repeat BMP in AM. #13. DVT prophylaxis: Lovenox. #14. CODE status: Full Code status. Charges/Coding Visit Charges Inpatient E&M: 26159 Init Hosp L3
[2025-07-02] MEDS: Potassium Chloride 10mEq/100mL 10 MEQ/100 ML IV.SOLN. 100 MEQ IV BOLUS (00:40)
[2025-07-02 01:31] LABS: Magnesium 1.6 mg/dL (1.5-2.2)
[2025-07-02 01:38] LABS: Mucous, Urine 0 SEEN /hpf (<or=2+)
[2025-07-02 01:40] LABS: Color, Urine Yellow (Yellow); Glucose, Dipstick Normal (Normal); Ketone-Dipstick Negative (Negative); Leukocyte Esterase-Dipstick Negative /ul (Negative); Nitrite-Dipstick Positive (Negative); Occult Blood-Urine 10 /ul (Negative); Protein-Dipstick 15 mg/dl (Negative); Specific Gravity, Urine 1.010 (1.002-1.030); Urine Bilirubin Dipstick Negative (Negative)
--- NOTE | 2025-07-02 01:44 | ECHOD_ITS ---
Reason For Study Reason For Study: CONGESTIVE HEART FAILURE Procedure This was a 2D Doppler, Color Flow transthoracic echocardiogram. The patient was scanned supine. The study was technically difficult. Patient was sitting upright during exam. Exam performed portable in patient room. Left Ventricle Normal LV size. The left ventricular ejection fraction is 55 %. Stage 1 diastolic dysfunction. No regional wall motion abnormalities noted. Right Ventricle Normal RV size. Normal systolic function. Atria Normal left atrium. Normal right atrium. Mitral Valve There is mild mitral annular calcification. Mild (1+) eccentric mitral valve insufficiency. Tricuspid Valve Normal tricuspid valve. Mild-Moderate (1-2+) tricuspid valve insufficiency. Pulmonary artery systolic pressure is 46 mmHg. Aortic Valve Trisinus/trileaflet aortic valve. Mild focal aortic valve calcification. Pulmonic Valve Normal pulmonic valve. Great Vessels Normal aortic root. The pulmonary artery is normal size. Inferior vena cava collapse with respiration. Pericardium/Pleural No pericardial effusion. Medication Patient denied the use of Definity due to allergy sensitivity. MMode/2D Measurements & Calculations LVOT diam: 2.0 cm Ao root diam: 3.0 cm asc Aorta Diam: 2.5 cm LVOT area: 3.2 cm2 LAV(MOD-bp): 36.1 ml LVAd ap4: 23.1 cm2 LVAd ap2: 17.8 cm2 LAV(MOD-bp) Indexed: 18.0 ml/m2 LVLd ap4: 7.0 cm LVLd ap2: 6.4 cm LAV(MOD-sp2): 35.3 ml EDV(MOD-sp4): 62.8 ml EDV(MOD-sp2): 41.9 ml LAV(MOD-sp4): 35.2 ml EDV(sp4-el): 64.5 ml EDV(sp2-el): 41.8 ml LVAs ap4: 14.6 cm2 LVAs ap2: 10.1 cm2 LVLs ap4: 6.2 cm LVLs ap2: 5.0 cm ESV(MOD-sp4): 27.9 ml ESV(MOD-sp2): 17.1 ml ESV(sp4-el): 28.8 ml ESV(sp2-el): 17.4 ml EF(MOD-sp4): 55.6 % EF(MOD-sp2): 59.2 % EF(sp4-el): 55.3 % SV(MOD-sp4): 34.9 ml SV(MOD-sp2): 24.8 ml SV(sp4-el): 35.7 ml SI(MOD-sp4): 17.4 ml/m2 SI(MOD-sp2): 12.4 ml/m2 Ao sinus diam: 3.[address] Junction: 2.6 cm LA A4 area: 14.2 cm2 LA dimension(2D): 4.2 cm TAPSE: 1.6 cm Time Measurements MV dec time: 0.26 sec Doppler Measurements & Calculations MV E max marv: 96.4 cm/sec Lat Peak E' Marv: 7.5 cm/sec Med Peak E' Marv: 6.3 cm/sec MV A max marv: 107.1 cm/sec E/E' lat: 12.9 E/E' med: 15.3 MV E/A: 0.90 MV dec slope: 375.1 cm/sec2 Ao V2 max: 112.2 cm/sec LV V1 max: 80.7 cm/sec Ao max P.0 mmHg LV V1 max P.6 mmHg Ao V2 mean: 85.7 cm/sec LV V1 mean P.6 mmHg Ao mean P.1 mmHg LV V1 mean: 60.6 cm/sec Ao V2 VTI: 23.7 cm LV V1 VTI: 20.8 cm AV (velocity ratio): 0.88 CARMELITA(I,D): 2.8 cm2 CARMELITA(V,D): 2.3 cm2 SV(LVOT): 66.5 ml PA V2 max: 108.3 cm/sec TR max marv: 328.7 cm/sec TR max P.2 mmHg ECHO/Echo Complete Interpretation Summary Normal LV size. The left ventricular ejection fraction is 55 %. Stage 1 diastolic dysfunction. Mild-Moderate (1-2+) tricuspid valve insufficiency. Ordering Physician: Yady Kumar Referring Physician: Jennie Turk M.D. Performed By: Kalyani Roque RDCS
[2025-07-02 01:48] LABS: Red Blood Cells-Urine 0-5 SEEN /hpf (0-5); Squamous Epithelial Cells - UA 0-5 SEEN /hpf (5-10)
[2025-07-02 02:02] LABS: Troponin T High Sens 2 HR 24 ng/L (<=14)
--- NOTE | 2025-07-02 02:27 | PCM.HOSP.N ---
Hospitalist Note Patient refusing rocephin. Amenable to cipro.
[2025-07-02] MEDS: Potassium Chloride Oral Tablet 20 MEQ 40 MEQ PO (02:35)
[2025-07-02 04:00] LABS: Hematocrit 37.5 % (37-47); Hemoglobin 13.2 g/dL (12.0-15.0); Immature Granulocytes Count 0.160 X10^3/uL (0.0-0.0); Mean Corp Hgb Conc 35.2 g/dL (32-36); Mean Corpuscular Volume 91.7 fL (81-99); Mean Platelet Vol. 9.0 fl (6.2-12.0); NRBC Flagged by Analyzer 0 % (0-5); Platelet Count 322 K/mm3 (150-450); RBC Distribution Width CV 13.0 % (11.6-14.6); RBC Distribution Width SD 43.1 fl (35.1-43.9); Red Blood Count 4.09 M/mm3 (4.2-5.4); White Blood Count 21.9 K/mm3 (4.4-11.0)
[2025-07-02 04:23] LABS: Troponin T High Sens 4 HR 36 ng/L (<=14)
[2025-07-02] MEDS: 0.9% Saline Lock 10 ML Syringe IV ×4 (04:51→23:59)
[2025-07-02 04:56] LABS: AST(SGOT) 27 U/L (<=31); Alanine Aminotransfer ALT/SGPT 17 U/L (<=34); Albumin, Serum 4.1 g/dL (3.4-4.8); Alkaline Phosphatase 58 U/L (35-104); Anion Gap 16 (5-15); BUN 10 mg/dL (4-19); BUN/Creat Ratio 13.0 RATIO (10-20); Calcium,Total 8.9 mg/dL (7.6-11.0); Carbon Dioxide 22.4 mmol/L (21.0-32.0); Chloride 83 mmol/L (98-108); Estimated Creatinine Clearance 65.77 ml/min (50-250); Globulin 3.1 g/dL (2.2-4.2); Glucose 128 mg/dL (70-99); Potassium 2.8 mmol/L (3.3-5.1)
--- NOTE | 2025-07-02 05:20 | RAD_ITS ---
PROCEDURE: CHEST 1 VIEW (PORTABLE) 07/02/2025 REASON FOR EXAM: DYSPNEA TECHNIQUE: Frontal view of the chest. COMPARISON: Chest x-ray studies dated 03/01/2025 at 1:29 a.m. and 04/27/2023 FINDINGS: Hardware: None Heart: Normal size and contour Lungs: Bibasilar airspace disease processes are again noted and are similar when compared to the prior exam. These most likely represent pneumonic infiltrates. There is a subtle increased opacification in the right upper lobe which most likely represents a pneumonic infiltrate. A stable 6 mm nodule is seen in the left upper lobe. This is most compatible with a granuloma. There are no pneumothoraces. There are no pleural effusions. Bones: Diffuse osteopenia the bony thorax is noted. Arthritic changes are seen involving the right acromioclavicular joint. Spondylosis of the thoracic spine is noted RAD/Chest 1 View (Portable) IMPRESSION: Right upper lobe and bibasilar airspace disease processes most likely represent pneumonic infiltrates. Reading Location: [id number]
[2025-07-02] MEDS: Potassium Chloride Oral Tablet 20 MEQ PO (09:23)
[2025-07-02] MEDS: Estrogens,Conj. 0.625 MG Tablet PO (09:24)
--- NOTE | 2025-07-02 15:45 | NURSING ---
[id number] nc mid upper 90s. turned down to 1L and recheck after 1 hr. recheck levels continue to be mid upper 90s. At this time turned off o2 to RA and SPO2 still at 95-99%
[2025-07-03 04:16] VITALS: BP 133/57; PULSE 77; RESP 16; TEMP 36.9; O2SAT 94
[2025-07-03 05:56] VITALS: BMI 29.0
[2025-07-03 06:04] LABS: Hematocrit 32.2 % (37-47); Hemoglobin 11.3 g/dL (12.0-15.0); Immature Granulocytes Count 0.050 X10^3/uL (0.0-0.0); Mean Corp Hgb Conc 35.1 g/dL (32-36); Mean Corpuscular Volume 89.7 fL (81-99); Mean Platelet Vol. 9.0 fl (6.2-12.0); NRBC Flagged by Analyzer 0 % (0-5); Platelet Count 271 K/mm3 (150-450); RBC Distribution Width CV 13.5 % (11.6-14.6); RBC Distribution Width SD 44.7 fl (35.1-43.9); Red Blood Count 3.59 M/mm3 (4.2-5.4); White Blood Count 10.5 K/mm3 (4.4-11.0)
[2025-07-03 06:35] LABS: Cholesterol 137 mg/dL (<=200); Low Density Lipoprotein Calc. 54 mg/dL; Triglycerides 90 mg/dL; Very Low Density Lipoprotein 18 mg/dL (5-40); cholesterol:hdl ratio screen 2.06
[2025-07-03 06:39] LABS: Anion Gap 13 (5-15); BUN 13 mg/dL (4-19); BUN/Creat Ratio 12.4 RATIO (10-20); Calcium,Total 8.2 mg/dL (7.6-11.0); Carbon Dioxide 25.3 mmol/L (21.0-32.0); Chloride 85 mmol/L (98-108); Estimated Creatinine Clearance 52.01 ml/min (50-250); Glucose 96 mg/dL (70-99); Potassium 2.7 mmol/L (3.3-5.1)
--- NOTE | 2025-07-03 06:41 | PCM.HOSP.N ---
Hospitalist Note Potassium 2.7, supplementation ordered, am mag added.
[2025-07-03 07:05] LABS: Magnesium 1.2 mg/dL (1.5-2.2)
[2025-07-03 09:15] VITALS: BP 123/60; PULSE 76; RESP 16; TEMP 36.5; O2SAT 92
[2025-07-03] MEDS: Estrogens,Conj. 0.625 MG Tablet PO (09:40)
[2025-07-03] MEDS: Potassium Chloride Oral Tablet 20 MEQ 40 MEQ PO (09:40)
[2025-07-03] MEDS: Magnesium Sulfate 4gm/100mL 4 GM/100 ML IV.SOLN. IV (09:40)
[2025-07-03] MEDS: Potassium Chloride Oral Tablet 20 MEQ PO (09:40)
--- NOTE | 2025-07-03 10:45 | CASEMGMT ---
JUANITA GOMEZ Face to Face with patient for initial transition planning/care coordination assessment. RN CM introduced self and role at [facility]. Patient lying in bed, alert and oriented. Patient willing to participate in assessment and is able to answer all questions appropriately. Care providers, pharmacy, and demographics verified. Strata: 2 PCP: Rosalee Specialists: Valeria, bench assembly inspector; Jeremy, rn practitioner; Yoselyn, international editorial producer Preferred Pharmacy: [facility] Insurance: [facility] Prescription Benefit: yes Living Will/HPOA: yes, son Andrew Lara LNOK: son, friend Living Arrangements: Patient lives alone in a multiple level home with 3-6 steps with railing between levels. Patient is independent and able to ambulate stairs. Transportation: self, friend, DIL DME/HHC: Patient has cane and grab bars. No previous HHC or SNF. Will monitor for home oxygen at discharge. Patient wishes to discharge home, denies need for home health at this time. Patient states she has no further needs or concerns at this time. CM to follow for discharge planning needs that may arise. Disposition Plan: Patient to discharge home with family support and follow up plans in place. Will monitor for home oxygen. Marlyn THOMPSON, RN, CM
--- NOTE | 2025-07-03 11:23 | PN.HOSP_ITS ---
Subjective Subjective Feels better, no issues overnight. Denies any dysuria symptoms or fevers Objective Data Objective Data Vital Signs: Vital Signs Temp Pulse Resp BP Pulse Ox O2 Del Method O2 Flow Rate 97.7 F L 76 16 123/60 H 92 Room Air 1 07/03/25 09:15 07/03/25 09:15 07/03/25 09:15 07/03/25 09:15 07/03/25 09:15 07/03/25 09:15 07/02/25 14:23 Oxygen Flow Rate (L/min) 1 Oxygen Delivery Method Room Air Weight: 190 lb 11.198 oz Body Mass Index (BMI) 29.0 Intake & Output: Intake and Output for Last 24 Hours 07/02/25 07/03/25 07/04/25 03:59 03:59 03:59 Intake Total 100 / 100 1900 / 1900 Output Total 2049 / 2049 0 / 0 Balance 100 / 100 -150 / -150 0 / 0 Lab / Micro Data 07/03/25 05:34 07/03/25 05:34 Labs: Laboratory Results - last 24 hr 07/03/25 05:34: WBC 10.5, RBC 3.59 L, Hgb 11.3 L, Hct 32.2 L, MCV 89.7, MCH 31.5, MCHC 35.1, RDW Std Deviation 44.7 H, RDW Coeff of Eboni 13.5, Plt Count 271, MPV 9.0, Immature Gran % (Auto) 0.500, Neut % (Auto) 72.1 H, Lymph % (Auto) 14.8 L, [place] % (Auto) 11.1 H, Eos % (Auto) 1.1, Baso % (Auto) 0.4, Absolute Neuts (auto) 7.5, Absolute Lymphs (auto) 1.55, Nucleated RBC % 0, Sodium 123 L, P otassium 2.7 L*, Chloride 85 L, Carbon Dioxide 25.3, Anion Gap 13, BUN 13, Creatinine 1.01, Estim Creat Clear Calc 52.01, Est GFR (MDRD) Non-Af 57 L, BUN/Creatinine Ratio 12.4, Glucose 96, Calcium 8.2, Magnesium 1.2 L, Triglycerides 90, Cholesterol 137, LDL Cholesterol, Calc 54, VLDL Cholesterol 18, HDL Cholesterol 66, Cholesterol/HDL Ratio 2.06 Micro: Microbiology 11/16/25 02:06 Urine, Clean Catch Urine Culture - Preliminary GNR lactose torch straightener and heater Rhythm Strip Rhythm Strip: Sinus Rhythm Rate: 78 Ectopy: None Physical Exam Narrative General: Alert, Oriented x3, Cooperative, No apparent distress HEENT: Atraumatic, PERRLA, EOMI, Normocephalic Oral: Moist Mucosa Neck: Supple, No JVD Lungs: Diminished, Normal air movement, No rhonchi, No wheeze, No rales Cardiovascular: Regular rate, Regular Rhythm, Normal S1, Normal S2, No murmurs Abdomen: Soft, Non Tender, Non-Distended, No Hepato-splenomegaly Extremities: No edema, Capillary Refill Less than 3 Seconds Skin: Chronic lower extremity skin changes Musculoskeletal: No Tenderness to Palpation of Joints or Extremities Neurological: No focal neurological deficits, moves all extremities Psych/Mental Status: Normal Affect, Appropriate Assessment & Plan Assessment/Plan (1) Hypoxemia: PLAN: Plan 1. Acute hypoxia secondary to acute on chronic diastolic CHF/essential HTN/HLD/CAD status post stent/paroxysmal A-fib ? She is no longer requiring any oxygen, will do an ambulatory pulse ox ? She would like to discontinue Lasix if possible ? Also stop her triamterene and hydrochlorothiazide given her severe hyponatremia ? Will liberalize a little bit of her diet with increased salt ? She has quite a list of allergies, medication adjustments will be challenging 2. Hyponatremia, hypokalemia, hypomagnesemia ? Will encourage increased salt intake, and discontinue her triamterene hydrochlorothiazide given hyponatremia ? Will replace potassium ? Will replete magnesium 3. Asymptomatic bacteriuria ? She denies any dysuria and would like to discontinue Cipro ? Urine cultures are pending 4. Anxiety/depression ? Stable ? Continue with her home medications DVT: Lovenox Charges/Coding Visit Charges Inpatient E&M: 82165 Subs Hosp L2
[2025-07-03 12:00] VITALS: O2SAT 93; O2SAT 97
--- NOTE | 2025-07-03 15:33 | CHAPLAIN ---
Type of Pastoral Visit _x__ Initial Visit ___ Follow-up Visit ___ On-call Visit ___ General Patient Visit ___ Spiritual Assessment ___ Family Conference ___ Bereavement ___ Rapid Response ___ Code Blue ___ Other (describe below) Pastoral Care Referral From _x__ Patient ___ Family ___ Nurse ___ Physician ___ Production Control Manager ___ Radio Presenter ___ Other (describe below) Sacrament/Intervention _x__ Active listening ___ Anointing ___ Jewish ___ Bereavement ___ Communion ___ Che exploration ___ ___ Life review _x__ Prayer ___ Reconciliation ___ Sacrament of Sick _x__ Supportive presence ___ Wedding ___ Other (describe below) Pastoral Comments patient is expressive about her diet and the decisions made about what she can and cannot eat; pt then apologizes for complaining about the food; pt is given time to talk and express her feelings; pt is hopeful and determined to go home today but tomorrow at the latest; pt welcomes a prayer
[2025-07-03 15:40] VITALS: BP 140/68; PULSE 75; RESP 16; TEMP 36.4; O2SAT 96
[2025-07-03 20:24] VITALS: BP 117/77; PULSE 71; RESP 16; TEMP 36.9; O2SAT 95
[2025-07-04 02:55] VITALS: BP 138/78; PULSE 72; RESP 16; TEMP 36.6; O2SAT 94
[2025-07-04 03:49] VITALS: BMI 28.8
[2025-07-04 06:44] LABS: Hematocrit 31.3 % (37-47); Hemoglobin 10.8 g/dL (12.0-15.0); Immature Granulocytes Count 0.050 X10^3/uL (0.0-0.0); Mean Corp Hgb Conc 34.5 g/dL (32-36); Mean Corpuscular Volume 91.8 fL (81-99); Mean Platelet Vol. 8.5 fl (6.2-12.0); NRBC Flagged by Analyzer 0 % (0-5); Platelet Count 250 K/mm3 (150-450); RBC Distribution Width CV 13.9 % (11.6-14.6); RBC Distribution Width SD 47.0 fl (35.1-43.9); Red Blood Count 3.41 M/mm3 (4.2-5.4); White Blood Count 11.1 K/mm3 (4.4-11.0)
[2025-07-04 07:07] LABS: Anion Gap 11 (5-15); BUN 12 mg/dL (4-19); BUN/Creat Ratio 12.6 RATIO (10-20); Calcium,Total 8.2 mg/dL (7.6-11.0); Carbon Dioxide 25.1 mmol/L (21.0-32.0); Chloride 91 mmol/L (98-108); Estimated Creatinine Clearance 56.94 ml/min (50-250); Glucose 103 mg/dL (70-99); Potassium 3.4 mmol/L (3.3-5.1)
[2025-07-04 08:03] VITALS: O2SAT 94
[2025-07-04 09:00] VITALS: BP 131/50; PULSE 67; RESP 16; TEMP 36.7; O2SAT 97
[2025-07-04] MEDS: Estrogens,Conj. 0.625 MG Tablet PO (09:14)
[2025-07-04] MEDS: Potassium Chloride Oral Tablet 20 MEQ PO (09:14)
--- NOTE | 2025-07-04 10:14 | DCINST_ITS ---
Discharge Instructions DC O2, CPAP, BIPAP needs Home O2 Discharge instructions: No Dressing / Incision Discharge Activity: Return to Normal Activity Dressing / Incision Call your doctor if you observe: Fever of 101 or Higher, Shortness of breath, Dizziness, Fainting spells, Swelling in the ankles, Chest pain and Increased palpitations (irregular heartbeat) Follow Up Care Test Results: Test results from this visit will be discussed in further detail at your follow- up appointment, if applicable. Discharge Plan Admission Admit Date/Time: 07/02/25 01:00 Attending Provider: Kane Cruz Primary Care Provider: Jennie Turk Consulting Providers: Yady Kumar Instructions Additional Instructions / Restrictions: Increase sodium consumption to 1 to 1.5 g daily. Continue taking her potassium supplementation. Follow-up with your PCP to monitor electrolytes as an outpatient. Discharge Orders/Prescriptions Prescriptions: New ciprofloxacin HCl 500 mg Tablet 500 mg PO BID 4 Days Qty: 8 0RF Continued prednisolone acetate 0.12 % drops,suspension 1 drp ophthalmic (eye) MOWEFR Rx Instructions: RT EYE ONLY olopatadine [Pataday Once Daily Relief] 0.2 % drops 1 drp ophthalmic (eye) ONCE PRN (Reason: eye health) Stephanie-[place] Gold 344-1,050-1,000 mg tablet, effervescent 1 tab PO Q4H PRN (Reason: STOMACH) cromolyn [Gastrocrom] 100 mg/5 mL concentrate 200 mg PO 4X/DAY prednisone 10 mg tablet 10 mg PO DIRECTED PRN (Reason: as directed for flares and tapers) potassium chloride 20 mEq tablet extended release 20 meq PO DAILY conjugated estrogens [Premarin] 0.625 MG tablet 0.625 mg PO DAILY cetirizine [Zyrtec] 10 mg Tablet 5 mg PO BID acetaminophen 500 mg tablet 1,000 mg PO BID PRN (Reason: pain) triamterene-hydrochlorothiazid 37.5-25 mg capsule 1 cap PO DAILY PRN (Reason: bp) prednisone 1 mg tablet 3 mg PO DAILY hydrocortisone acetate 25 mg suppository 25 mg [place] BID PRN (Reason: hemorrhoids) chlordiazepoxide HCl 5 mg capsule 5 mg PO .PRN PRN (Reason: agitation) Qty: 90 3RF Referrals / Follow Up: Jennie Turk MD [Primary Care Provider, Internal Medicine] - Within 2 Weeks Disposition Disposition (needs filled in before D/C Order can be placed): Home, Self Care
--- NOTE | 2025-07-04 11:25 | PHA.DC.MC.R ---
Pharmacy [facility] has performed discharge medication reconciliation and counseling for this patient. 1. CIPROFLOXACIN 500MG PO BID X 4 DAYS The patient's discharge medication list was reviewed for discrepancies and discrepancies were resolved. The patient was counseled on the following discharge medications and changes in medications for homegoing were reviewed. The Reason for Use, instructions for use, and potential side effects were reviewed for all new medications. The patient's questions regarding all of their medications were answered. The patient was able to verbally demonstrate an understanding of their discharge medications. Medications at Discharge Home Medications conjugated estrogens 0.625 mg tablet (Premarin) 0.625 mg PO DAILY hormones 02/12/14 hydrocortisone acetate 25 mg rectal suppository 25 mg [place] BID PRN hemorrhoids 08/20/21 pot bicarb 344 mg-sod bicarb 1,050 mg-citric acid 1,000 mg efferv tab (Stephanie-[place] Gold) 1 tab PO Q4H PRN STOMACH 08/30/21 cetirizine 10 mg tablet (Zyrtec) 5 mg PO BID ALLERGIES 10/09/21 chlordiazepoxide HCl 5 mg capsule 5 mg PO .PRN PRN agitation #90 caps 10/02/22 acetaminophen 500 mg tablet 1,000 mg PO BID PRN pain 07/27/23 cromolyn 100 mg/5 mL oral concentrate (Gastrocrom) 200 mg PO 4X/DAY 07/27/23 prednisolone acetate 0.12 % eye drops,suspension 1 drp ophthalmic (eye) MOWE eye health 07/27/23 prednisone 10 mg tablet 10 mg PO DIRECTED PRN as directed for flares and tapers 07/27/23 potassium chloride 20 mEq tablet,extended release 20 meq PO DAILY 12/21/23 olopatadine 0.2 % eye drops (Pataday Once Daily Relief) 1 drp ophthalmic (eye) ONCE PRN eye health 02/06/25 triamterene 37.5 mg-hydrochlorothiazide 25 mg capsule 1 cap PO DAILY PRN bp 02/06/25 prednisone 1 mg tablet 3 mg PO DAILY arthritis pain 07/02/25 ciprofloxacin HCl 500 mg tablet 500 mg PO BID 4 days #8 tabs 07/04/25
--- NOTE | 2025-07-04 11:39 | CASEMGMT ---
Patient has order for discharge. RN CM in to discuss needs at discharge. Patient denies needs or help at discharge. Patient had no further questions or concerns.
[2025-07-04 13:00] VITALS: BP 128/56; PULSE 70; RESP 16; TEMP 36.8; O2SAT 97
--- NOTE | 2025-07-04 14:36 | DS.PCM_ITS ---
Providers Date of Admission: 07/02/25 Primary Care Physician: Dr. Jennie Turk MD Reason For Visit: HYPOXIA HF EXACERBATION Diagnosis Discharge Diagnosis (1) Hypoxemia: Status: Acute Code(s): R09.02 - Hypoxemia Medications at Discharge Home Medications conjugated estrogens 0.625 mg tablet (Premarin) 0.625 mg PO DAILY hormones 02/12/14 hydrocortisone acetate 25 mg rectal suppository 25 mg AR BID PRN hemorrhoids 08/20/21 pot bicarb 344 mg-sod bicarb 1,050 mg-citric acid 1,000 mg efferv tab (Stephanie- [place] Gold) 1 tab PO Q4H PRN STOMACH 08/30/21 cetirizine 10 mg tablet (Zyrtec) 5 mg PO BID ALLERGIES 10/09/21 chlordiazepoxide HCl 5 mg capsule 5 mg PO .PRN PRN agitation #90 caps 10/02/22 acetaminophen 500 mg tablet 1,000 mg PO BID PRN pain 07/27/23 cromolyn 100 mg/5 mL oral concentrate (Gastrocrom) 200 mg PO 4X/DAY 07/27/23 prednisolone acetate 0.12 % eye drops,suspension 1 drp ophthalmic (eye) MOWE eye health 07/27/23 prednisone 10 mg tablet 10 mg PO DIRECTED PRN as directed for flares and tapers 07/27/23 potassium chloride 20 mEq tablet,extended release 20 meq PO DAILY 12/21/23 olopatadine 0.2 % eye drops (Pataday Once Daily Relief) 1 drp ophthalmic (eye) ONCE PRN eye health 02/06/25 triamterene 37.5 mg-hydrochlorothiazide 25 mg capsule 1 cap PO DAILY PRN bp 02/06/25 prednisone 1 mg tablet 3 mg PO DAILY arthritis pain 07/02/25 ciprofloxacin HCl 500 mg tablet 500 mg PO BID 4 days #8 tabs 07/04/25 Hospital Course Operations None Procedures 2-D Echocardiogram Summary of Care Provided Minutes Spent on Discharge: 34 Hospital Course: Per HPI: The patient is a 79 y/o F w/ PMHx: CAD s/p PCI, HFpEF/Ischemic cardiomyopathy, Obesity, CKD stage III unclear subtype, HTN, HLD, Allergic rhinitis, PAF who presents to the [facility] ED on 07/02/2025 with history of dyspnea, abdominal fullness/bloating as well as reportedly difficulty urinating through the day with mild dysuria sensation despite having drinking a lot of fluids per her report prompting eventual ED evaluation to be cautious. She is uncertain of any weight gain, notes stable chronic lower extremity swelling and unchanged right lower extremity erythema which is stable with venous stasis skin changes but does admit to notable orthopnea. Workup in the ED included T98.2, heart rate 88, BP initially 200/76, respiratory rate 14, 98% however patient desaturated down to 82% on room air with improvement to 96% on 5 L nasal cannula with most recent repeat heart rate 76, BP 191/88, respiratory rate 17, CBC with WBC 12.2, hemoglobin 12.8, platelets 310 with left shift, CMP with sodium 121, potassium 3.1, chloride 85, carbon oxide 20.2, anion gap 16, glucose 119, hepatic profile unremarkable, troponin 14, NT proBNPII 1591, chest x-ray concern for cephalization/overload, EKG with sinus rhythm with nonspecific ST-T changes similar to previous with no acute evidence of ischemia. In the ED patient ministered albuterol, potassium 10 mill equivalents IV x 1 as well as Lasix 40 mg IV x 1. Hospital Course: 1. Acute hypoxia secondary to acute on chronic diastolic CHF/essential HTN/HLD/CAD status post stent/paroxysmal A-fib?79-year-old female with quite a few allergies to medications presents to the hospital with increasing dyspnea. Echocardiogram demonstrated an EF of 55% with stage I diastolic dysfunction and she was reticent to continue Lasix so this was discontinued. She was also found to be severely hyponatremic, hypokalemic, and hypomagnesemic all of which were replaced and corrected prior to discharge. I did indicate to her that she could liberalize her salt intake a little bit as she eats less than 1 g a day and so this adjustment should help with her hyponatremia, she does take daily potassium supplementation and on the day of discharge potassium was 3.4. Will continue with her triamterene hydrochlorothiazide on discharge despite the fact that this could be contributing to her hyponatremia secondary to fact that were limited with medications that we can start her on based on her extensive allergy list and also the fact that she does not want to be on Lasix. I recommend outpatient follow-up with her PCP in 3 to 5 days and then she has a follow-up appointment with cardiology as well. I discussed with her the possibility for discharge and she expressed understanding of the risks and benefits of going home and would like to go home today. She is not requiring any oxygen on discharge. 2. Possible UTI?initially presenting with what seems to be asymptomatic bacteriuria as she related to me that she was not having any burning with urination however today on the day of discharge she says that she did notice some burning with urination given the fact that she had 4+ bacteria in her UA and it did come back positive with a fairly sensitive Klebsiella causing her UTI, will continue with Cipro for 4 more days on discharge. Physical Exam Narrative General: Alert, Oriented x3, Cooperative, No apparent distress HEENT: Atraumatic, PERRLA, EOMI, Normocephalic Oral: Moist Mucosa Neck: Supple, No JVD Lungs: Diminished, Normal air movement, No rhonchi, No wheeze, No rales Cardiovascular: Regular rate, Regular Rhythm, Normal S1, Normal S2, No murmurs Abdomen: Soft, Non Tender, Non-Distended, No Hepato-splenomegaly Extremities: No edema, Capillary Refill Less than 3 Seconds Skin: Chronic lower extremity skin changes Musculoskeletal: No Tenderness to Palpation of Joints or Extremities Neurological: No focal neurological deficits, moves all extremities Psych/Mental Status: Normal Affect, Appropriate Weight / BMI Weight Weight: 189 lb 9.561 oz Body Mass Index (BMI) 28.8 ABG / Lab / Microbiology Data 07/04/25 06:34 07/04/25 06:34 Laboratory: Laboratory Results - last 24 hr 07/04/25 06:34: WBC 11.1 H, RBC 3.41 L, Hgb 10.8 L, Hct 31.3 L, MCV 91.8, MCH 31.7, MCHC 34.5, RDW Std Deviation 47.0 H, RDW Coeff of [place] 13.9, Plt Count 250, MPV 8.5, Immature Gran % (Auto) 0.400, Neut % (Auto) 73.4 H, Lymph % (Auto) 15.0 L, [place] % (Auto) 9.7, Eos % (Auto) 1.1, Baso % (Auto) 0.4, Absolute Neuts (auto) 8.2 H, Absolute Lymphs (auto) 1.67, Nucleated RBC % 0, Sodium 127 L, Potassium 3.4, Chloride 91 L, Carbon Dioxide 25.1, Anion Gap 11, BUN 12, Creatinine 0.92, Estim Creat Clear Calc 56.94, Est GFR (MDRD) Non-Af 63, BUN/Creatinine Ratio 12.6, Glucose 103 H, Calcium 8.2 Microbiology: Microbiology 07/02/25 02:06 Urine, Clean Catch Urine Culture - Final Klebsiella pneumoniae sp pneum D/C Instructions Call your doctor if you observe: Fever of 101 or Higher, Shortness of breath, Dizziness, Fainting spells, Swelling in the ankles, Chest pain and Increased palpitations (irregular heartbeat) DC O2, CPAP, BIPAP Needs Home O2 Discharge instructions: No Meaningful Use Info Meaningful Use Meaningful Use Diagnoses (Choose all that apply): None applicable Discharge Plan Admission Admit Date/Time: 07/02/25 01:00 Attending Provider: Kane Cruz Primary Care Provider: Jennie Turk Consulting Providers: Yady Kumar Instructions Additional Instructions / Restrictions: Increase sodium consumption to 1 to 1.5 g daily. Continue taking her potassium supplementation. Follow-up with your PCP to monitor electrolytes as an outpatient. Discharge Orders/Prescriptions Prescriptions: New ciprofloxacin HCl 500 mg Tablet 500 mg PO BID 4 Days Qty: 8 0RF Continued prednisolone acetate 0.12 % drops,suspension 1 drp ophthalmic (eye) MOWEFR Rx Instructions: RT EYE ONLY olopatadine [Pataday Once Daily Relief] 0.2 % drops 1 drp ophthalmic (eye) ONCE PRN (Reason: eye health) Stephanie[place] Gold 344-1,050-1,000 mg tablet, effervescent 1 tab PO Q4H PRN (Reason: STOMACH) cromolyn [Gastrocrom] 100 mg/5 mL concentrate 200 mg PO 4X/DAY prednisone 10 mg tablet 10 mg PO DIRECTED PRN (Reason: as directed for flares and tapers) potassium chloride 20 mEq tablet extended release 20 meq PO DAILY conjugated estrogens [Premarin] 0.625 MG tablet 0.625 mg PO DAILY cetirizine [Zyrtec] 10 mg Tablet 5 mg PO BID acetaminophen 500 mg tablet 1,000 mg PO BID PRN (Reason: pain) triamterene-hydrochlorothiazid 37.5-25 mg capsule 1 cap PO DAILY PRN (Reason: bp) prednisone 1 mg tablet 3 mg PO DAILY hydrocortisone acetate 25 mg suppository 25 mg AR BID PRN (Reason: hemorrhoids) chlordiazepoxide HCl 5 mg capsule 5 mg PO .PRN PRN (Reason: agitation) Qty: 90 3RF Referrals / Follow Up: Jennie Turk MD [Primary Care Provider, Internal Medicine] - Within 2 Weeks Disposition Disposition (needs filled in before D/C Order can be placed): Home, Self Care Charges/Coding Visit Charges Inpatient E&M: 55212 Disch Hosp >30min
== END 2025-07-04 13:59 | disposition home or self-care (01) | DRG 291 ==
LOC: ED 07-02 00:34 → PCU 07-02 01:21
PROVIDERS: Admitting Provider Family Medicine; Emergency Provider Emergency Medicine; PCP Internal Medicine; Visit Provider Family Medicine
DX: I13.0 Hypertensive heart and chronic kidney disease with heart failure and stage 1 through stage 4 chronic kidney disease, or unspecified chronic kidney disease (principal); J81.0 Acute pulmonary edema; I50.33 Acute on chronic diastolic (congestive) heart failure; E87.1 Hypo-osmolality and hyponatremia; N39.0 Urinary tract infection, site not specified; F32.A Depression, unspecified; E66.9 Obesity, unspecified; I48.0 Paroxysmal atrial fibrillation; E78.5 Hyperlipidemia, unspecified; I25.10 Atherosclerotic heart disease of native coronary artery without angina pectoris; E87.6 Hypokalemia; N18.2 Chronic kidney disease, stage 2 (mild); I25.2 Old myocardial infarction; E87.8 Other disorders of electrolyte and fluid balance, not elsewhere classified; F41.9 Anxiety disorder, unspecified; J30.9 Allergic rhinitis, unspecified; E83.42 Hypomagnesemia; Z90.710 Acquired absence of both cervix and uterus; R09.02 Hypoxemia; Z95.5 Presence of coronary angioplasty implant and graft; R82.71 Bacteriuria; Z98.41 Cataract extraction status, right eye; Z98.42 Cataract extraction status, left eye; Z98.51 Tubal ligation status; R30.0 Dysuria; Z79.899 Other long term (current) drug therapy
CPT/HCPCS: 36415; 71045; 71046; 80048; 80053; 80061; 81001; 83690; 83735; 83880; 84443; 84484; 85025; 87077; 87086; 87088; 87186; 93005; 93306; 94640; 97162; 97167; 97530; 97535; 97802; 97803; 99285; A4216; J0744; J1938; J2405